=== PATIENT | male | born 1950 | race Caucasian/White ===

== ENCOUNTER → 2016-12-31 | Outpatient (CLI) | payer MEDICARE, BC ==
[~2016-12-31] MED LIST: AMLO5TAB2 PO; DICL1GEL3 TOP; FOLI1TAB4 PO; GABA-283 PO; GLIM1TAB PO; HYDR12.55 PO; INVO300T PO; KETO10TAB PO; MAGN1TAB25 PO; METF-414 PO; METF500T13 PO; THIA50CA PO; TRAM50TA2 PO; TRAZ-136 PO; VALS1TAB49 PO; VOLT1GEL15 TOP
--- NOTE | 2016-12-31 12:45 | REP ---
Clinical: Cervical. Technique: AP, lateral, open mouth views of the cervical spine. Findings: Alignment and lordosis maintained. No obvious acute fracture / compression injury or subluxation. Moderate to advanced multilevel degenerative changes include endplate sclerosis, cortical irregularity, and disc space narrowing. Prevertebral soft tissues normal. Spinous processes are intact. Open mouth view demonstrates normal C1-C2 articulation and odontoid process. Impression: Moderate to advanced multilevel degenerative changes. Signed by Richard Judd MD 12/31/2016 12:36 P
== END ==
LOC: M ADAMS 12:21
PROVIDERS: ATTEND Physician Assistant
DX: M54.2 Cervicalgia (principal)

== ENCOUNTER → 2017-01-07 | Outpatient (CLI) | payer MEDICARE, BC ==
--- NOTE | 2017-01-07 17:01 | REP ---
Clinical: Back pain. Technique: AP, lateral, and swimmer's views. Findings: Age-related osteopenia and mild multilevel degenerative changes are appreciated. No acute fracture / compression injury or subluxation. Impression: Age-related degenerative changes. Signed by Richard Judd MD 01/07/2017 04:52 P
--- NOTE | 2017-01-07 17:06 | REP ---
Clinical: Right-sided pain. Technique: Frontal view of the chest with multiple views of the right hemithorax. Findings: Frontal view of the chest demonstrates chronic COPD and emphysematous changes with scattered scarring. Multiple views of the right hemithorax demonstrates nondisplaced right lateral 9th through 11th rib fractures. Impression: Nondisplaced right 9-11th rib fractures. Signed by Richard Judd MD 01/07/2017 04:58 P
[2017-01-07 20:53] LABS: BASO # 0.1 K/mm3 (0.0-0.2); BASO % 0.7 % (0.0-1.0); EOS # 0.3 K/mm3 (0.0-0.50); LARGE UNSTAINED CELL # 0.2 K/mm3 (0.0-0.4); LARGE UNSTAINED CELL % 1.3 % (0.0-4.0); LYMPH # 2.9 K/mm3 (1.5-4.5); LYMPH % 17.4 % (24.0-44.0); MEAN CORPUSCULAR HEMOGLOBIN 35.5 pg (27.0-33.0); MEAN CORPUSCULAR HGB CONC 34.4 g/dl (32.0-36.5); MEAN CORPUSCULAR VOLUME 103.2 fl (80.0-96.0); MONO # 0.7 K/mm3 (0.0-0.8); MONO % 4.3 % (0.0-5.0); NEUTROPHILS # 12.2 K/mm3 (1.8-7.7); NEUTROPHILS % 74.3 % (36.0-66.0); PLATELET COUNT, AUTOMATED 404 k/mm3 (150-450); RED CELL DISTRIBUTION WIDTH 12.4 % (11.5-14.5); WHITE BLOOD COUNT 16.4 K/mm3 (4.0-10.0)
[2017-01-07 20:55] LABS: MICROSCOPIC INDICATED? MAN NO (NO)
[2017-01-07 21:31] LABS: ALBUMIN 3.9 GM/DL (3.2-5.2); ALBUMIN/GLOBULIN RATIO 1.18 (1.00-1.93); BILIRUBIN,TOTAL 0.7 MG/DL (0.2-1.0); CALCIUM LEVEL 13.5 MG/DL (8.8-10.2); CREATININE FOR GFR 5.59 MG/DL (0.70-1.30); POTASSIUM SERUM 4.6 MEQ/L (3.5-5.1); TOTAL PROTEIN 7.2 GM/DL (6.4-8.2)
[2017-01-07 21:35] LABS: ERYTHROCYTE SEDIMENTATION RATE 35 mm/hr (0-20)
[2017-01-11 00:15] LABS: (LD) FRACTION 1 16 % (17-32); (LD) FRACTION 2 25 % (25-40); (LD) FRACTION 3 16 % (17-27); (LD) FRACTION 4 10 % (5-13); (LD) FRACTION 5 33 % (4-20); LDH 167 IU/L (121-224)
== END ==
LOC: M ADAMS 15:41
PROVIDERS: ATTEND Physician Assistant
DX: M54.6 Pain in thoracic spine (principal)

== ENCOUNTER 2017-01-09 12:53 | Inpatient (IN) | payer MEDICARE, BC ==
[~2017-01-09] VITALS: Ht 180.3 cm; Wt 85.1 kg
[2017-01-09] MEDS ORDERED: TRAZ-136 PO (13:32)
[2017-01-09] MEDS ORDERED: MAGN1TAB25 PO (13:32)
[2017-01-09] MEDS ORDERED: INVO300T PO (13:32)
[2017-01-09] MEDS ORDERED: METF500T13 PO (13:32)
[2017-01-09] MEDS ORDERED: GABA-283 PO (13:32)
[2017-01-09] MEDS ORDERED: HYDR12.55 PO (13:32)
[2017-01-09] MEDS ORDERED: NS IV ONE (14:00)
[2017-01-09] MEDS ORDERED: DILUENT IV ONE (14:00)
[2017-01-09 14:18] LABS: VENOUS BASE EXCESS 3.5 (-2.0-2.0); VENOUS O2 SATURATION 76.7 % (60.0-80.0); VENOUS PARTIAL PRESSURE CO2 48.4 mmHg (38.0-50.0); VENOUS PARTIAL PRESSURE O2 38.3 mmHg (30.0-50.0); VENOUS TOTAL CO2 30.7 MEQ/L (24.0-28.0)
[2017-01-09 14:30] LABS: INR 0.92
[2017-01-09 14:39] LABS: BASO # 0.1 K/mm3 (0.0-0.2); BASO % 0.8 % (0.0-1.0); EOS # 0.5 K/mm3 (0.0-0.50); EOS % 3.3 % (0.0-3.0); LARGE UNSTAINED CELL # 0.2 K/mm3 (0.0-0.4); LARGE UNSTAINED CELL % 1.5 % (0.0-4.0); LYMPH # 3.1 K/mm3 (1.5-4.5); MEAN CORPUSCULAR HGB CONC 33.7 g/dl (32.0-36.5); MEAN CORPUSCULAR VOLUME 103.9 fl (80.0-96.0); MONO # 0.8 K/mm3 (0.0-0.8); MONO % 5.8 % (0.0-5.0); NEUTROPHILS # 9.5 K/mm3 (1.8-7.7); NEUTROPHILS % 66.7 % (36.0-66.0); PLATELET COUNT, AUTOMATED 342 k/mm3 (150-450); RED CELL DISTRIBUTION WIDTH 12.2 % (11.5-14.5); WHITE BLOOD COUNT 14.3 K/mm3 (4.0-10.0)
[2017-01-09 14:46] LABS: ALBUMIN 3.5 GM/DL (3.2-5.2); ALKALINE PHOSPHATASE 71 U/L (45-117); ALT/SGPT 53 U/L (12-78); AMYLASE 86 U/L (25-115); ANION GAP 10 MEQ/L (8-16); AST/SGOT 23 U/L (15-37); BILIRUBIN,DIRECT 0.2 MG/DL (0.0-0.2); BILIRUBIN,TOTAL 0.5 MG/DL (0.2-1.0); BLOOD UREA NITROGEN 80 MG/DL (7-18); CALCIUM LEVEL 12.9 MG/DL (8.8-10.2); CARBON DIOXIDE LEVEL 27 MEQ/L (21-32); CHLORIDE LEVEL 95 MEQ/L (98-107); CREATININE FOR GFR 6.31 MG/DL (0.70-1.30); GLOMERULAR FILTRATION RATE 9.5 (>49); GLUCOSE, FASTING 134 MG/DL (80-110); SODIUM LEVEL 132 MEQ/L (136-145)
--- NOTE | 2017-01-09 14:57 | REP ---
CT CERVICAL SPINE WITHOUT CONTRAST: HISTORY: Trauma. There is no acute fracture or subluxation. Disc bulges are present at the C4-5 through C6-7 levels. There is minimal narrowing of the spinal canal. The neural foramina are patent. The intervertebral discs are normal in height. IMPRESSION: 1. There is no acute fracture or subluxation. 2. There is cervical spondylosis at the C4-5 through C6-7 levels. Signed by Qasim Pham MD 01/09/2017 03:01 P
--- NOTE | 2017-01-09 15:00 | REP ---
Clinical: Trauma with thoracic pain. Technique: AP, lateral, and swimmers views. Findings: Alignment and kyphosis is maintained. Vertebral bodies intact. No acute fracture / compression injury or subluxation. No degenerative changes. Paravertebral soft tissues are normal. Impression: Normal thoracic spine series. Signed by Richard Judd MD 01/09/2017 02:51 P
--- NOTE | 2017-01-09 15:02 | REP ---
Clinical: Trauma . Comparison: 06/23/2013 . Technique: PA and lateral. Findings: The mediastinum and cardiac silhouette are normal. The lung bangura are clear and without acute consolidation, effusion, or pneumothorax. Acute right ninth and tenth rib fractures are identified. Old healed left rib fracture noted. Impression: Nondisplaced right lateral ninth and tenth rib fractures. Signed by Richard Judd MD 01/09/2017 02:53 P
--- NOTE | 2017-01-09 15:03 | REP ---
Clinical: Trauma. Comparison: 03/03/2012 . Technique: AP, lateral, bilateral oblique, and coned-down views. Findings: Alignment and lordosis is maintained. The vertebral bodies including transverse process and spinous processes are intact and normal. There is no evidence for acute fracture / compression injury or subluxation. No evidence for spondylolysis or spondylolisthesis. Mild age-related degenerative changes. Impression: Mild age-related changes. No acute fracture / compression injury or subluxation. Signed by Richard Judd MD 01/09/2017 02:54 P
[2017-01-09] MEDS ORDERED: DICL1GEL3 TOP (15:20)
[2017-01-09] MEDS ORDERED: VOLT1GEL15 TOP (15:20)
[2017-01-09] MEDS ORDERED: TRAM50TA2 PO (15:28)
[2017-01-09] MEDS ORDERED: VALS1TAB49 PO (15:28)
[2017-01-09] MEDS ORDERED: KETO10TAB PO ×2 (15:28→15:35)
--- NOTE | 2017-01-09 15:41 | REP ---
Clinical: Abdominal pain with acute renal failure. Findings: Lung bases demonstrate mild posterobasilar dependent changes. No cardiomegaly. Liver, spleen, pancreas, gallbladder, and bilateral adrenal glands are normal. The kidneys demonstrate mild chronic-appearing perinephric stranding and 2 mm nonobstructing left nephrolith without hydroureteronephrosis or obstructing calculus. The enteric system is without obstruction or acute inflammatory process. Normal terminal ileum and appendix identified in the right lower quadrant. Pelvis demonstrates normal bladder and age appropriate prostate/seminal vesicles. Few scattered sigmoid diverticula without acute diverticulitis. No free air. No free fluid. No adenopathy. Abdominal aorta without aneurysm. Surrounding musculoskeletal structures without focal osseous abnormality. Impression: 2 mm nonobstructing left renal calculus. No acute abdominopelvic pathology appreciated. Signed by Richard Judd MD 01/09/2017 03:34 P
--- NOTE | 2017-01-09 15:47 | REP ---
Clinical: Trauma. Findings: The bilateral lung bangura are relatively well aerated. Minimal bibasilar dependent changes (right greater than left) noted. No consolidation, pleural effusion, or pneumothorax. Tracheobronchial tree is patent. Mediastinum demonstrates atherosclerotic changes to the thoracic aorta and coronary arteries without aortic aneurysm or cardiomegaly. No pericardial effusion. Mediastinal lymph nodes are nonspecific. Old healed left eighth and ninth rib fractures. Nondisplaced acute posterior right 9th, 10th, 11th, and 12th rib fractures identified. Impression: Nondisplaced posterior right 9-12th rib fractures noted. No mediastinal or pleuroparenchymal process. Signed by Richard Judd MD 01/09/2017 03:39 P
[2017-01-09] MEDS ORDERED: METF-414 PO (15:53)
[2017-01-09] MEDS ORDERED: cefTRIAXone SOD 2 GM in D5W MINI-BAG PLUS 50 ML IV ONE (16:30)
[2017-01-09 17:09] LABS: MAGNESIUM LEVEL 4.9 MG/DL (1.8-2.4)
[2017-01-09 17:22] LABS: PHOSPHORUS LEVEL 4.7 MG/DL (2.5-4.9)
[2017-01-09] MEDS ORDERED: MORPHINE 2 MG/ML 1ML SYRINGE IV PRN (20:30)
[2017-01-09] MEDS: NS 1,000 ML IV SCH (20:35)
[2017-01-09] MEDS ORDERED: LORazepam 2 MG TAB PO PRN (20:45)
[2017-01-09] MEDS ORDERED: GLUCOSE 4 GM CHEW TABLET PO PRN (20:45)
[2017-01-09] MEDS ORDERED: GLUCAGON FOR INJ 1 MG VIAL (J1610) SC PRN (20:45)
[2017-01-09] MEDS ORDERED: DEXTROSE 50% 50 ML SYRINGE IV PRN (20:45)
[2017-01-09] MEDS: HumaLOG INSULIN (NovoLOG) PER UNIT SC SCH (21:00)
[2017-01-09] MEDS: THIAMINE 100 MG TAB PO SCH (21:45)
--- NOTE | 2017-01-09 21:54 | HPE ---
DATE OF ADMISSION: 01/09/2017 CHIEF COMPLAINT: 66-year-old gentleman sent from Dr. Multani' office due to acute renal failure. HISTORY OF PRESENT ILLNESS: This is a 66-year-old gentleman with significant past medical history of recent neck pain 2 weeks ago after a fall, was evaluated at an urgent care center, was prescribed oxycodone, muscle relaxant and tramadol 10 mg every 6 hours, with history of alcohol use, was seen by Dr. Multani today, noted to have acute kidney failure. Patient denies any symptoms such as fever, chills, cough, sputum production, abdominal pain, diarrhea, or dysuria, although he does mention having frequent little urination, but that has not been anything new and he has also had chronic issues with this in the past. Patient denies of any BPH history. Patient did have some difficulty with urination, but denies of dysuria or hematuria. Patient denies of any precipitating factors such as chest pain, shortness of breath, dizziness, abdominal pain that might have contributed to the acute kidney failure. Denies of any diarrhea history. Denies of any severe dehydration, although he does drink alcohol, he states that he drinks about half a liter of hard liquor, but last drink was 2 weeks ago. Denies of any withdrawal symptoms. Patient denies of any flank pain. He does take medicine for diabetes which includes metformin and Invokana. Again, patient has been utilizing oxycodone, ketorolac, and muscle relaxant for his recent pain of his neck. Patient was evaluated in the emergency room and noted to have acute kidney failure with creatinine of 6.31 with a lactic acid of 3.1, but that did improve to 1.7. Patient is being admitted for further evaluation and treatment. REVIEW OF SYSTEMS: Ten point review of systems is negative other than those described in the history of present illness (HPI). PAST MEDICAL HISTORY: Significant for diabetes, recent neck pain that has been evaluated, incidental finding of rib fractures, neuropathy, hypertension. No surgical history. ALLERGIES: Patient has no known drug allergies. MEDICATIONS: From home are as follows: - Invokana 300 mg by mouth daily - diclofenac one dose topical four times a day to the back - gabapentin 400 mg three times a day - ketorolac 10 mg by mouth every 6 hours as needed - magnesium oxide 400 mg by mouth three times a day - metformin 500 mg by mouth twice a day - tramadol 50 mg by mouth twice a day as needed - trazodone 100 mg by mouth nightly - valsartan 40 mg by mouth every morning In terms of social history, patient denies of smoking or drug abuse, but he does utilize hard liquor, half a liter, but denies of any withdrawal symptoms, last drink was 2 weeks ago, verified by his mother who is at the bedside. FAMILY MEDICAL HISTORY: Noncontributory at this time. PHYSICAL EXAMINATION: VITAL SIGNS: Again, no temperature noted, but last heart rate is 54, blood pressure is 112/58, saturating 93% on room air. On my examination, his respiratory rate was 16. HEENT: Normocephalic. No trauma noted. Inspection of the eyes, nose, and throat is within normal. Pupils equal, round, and reactive to light and accommodation. Mucous is moist. Neck is supple. No tracheal deviation. CARDIAC: S1, S2, regular rate and rhythm. Pulses present. LUNGS: Equal air entry. Did not hear any wheezes, rales, or rhonchi. ABDOMEN: Soft, nontender. Bowel sounds present. LOWER EXTREMITIES: No significant pitting edema but he does have some bruising that seems to be healing on his left lower extremity, but again good capillary refill bilaterally. The patient is currently awake, alert, oriented, flat affect, does not seem to be in any distress and not agitated. Cranial nerves grossly intact. Motor and sensory is intact. His mother is at the bedside. DIAGNOSTIC STUDIES: Patient had EKG showing heart rate of 60, sinus, first degree atrioventricular (AV) block with premature ventricular contractions (PVCs). WBC was 14.3, hemoglobin and hematocrit is 13.1 and 38.8, platelet count within normal. Sodium was 132, potassium within normal, chloride 95, carbon dioxide within normal. BUN and creatinine of 80 and 6.31, respectively. Glucose is 134. Lactic acid was 3.1, but repeat is 1.7. Calcium is 12.9, phosphorous is within normal, magnesium is high at 4.9. Total bilirubin, direct bilirubin, AST, ALT, alkaline phosphatase is all within normal. Cardiac enzymes within normal except for a total CK of 35, C-reactive protein is 3.02, amylase is within normal, otherwise total protein and albumin is within normal as well. Coagulation studies: PT and INR is within normal, PTT is 24.1. Blood gas showed: VBG of 7.398 pH, pCO2 of 48.4, oxygen of 38.3, bicarbonate 29.2, saturating 76.7. Urinalysis is negative for a urinary tract infection but it did show a 1+ protein, 3+ glucose, ketones trace amount, bacteria 1+. Urine study: Urine random osmolality is 367, creatinine of 159, and sodium of 27. Toxicology: Alcohol level is 0.005. Blood culture is pending. Urine culture is pending. Influenza A and B is negative. Patient also had a radiology study showing cervical spine without contrast, the CT shows, as per radiology, there is no acute fracture or subluxation. There is cervical spondylosis at C4-5 through C6-7 level. Patient also had thoracic spine x-ray which showed normal thoracic spine series. Lumbar spine showed mild age-related changes. No acute fracture, compression, injury, or subluxation. Chest x-ray showed nondisplaced right lateral 9th and 10th rib fracture. Abdomen CT showed 2 mm nonobstructing left renal calculus. No acute abdominal pelvic pathology appreciated. Patient also had a CT of the chest. As per radiology, showed nondisplaced posterior right 9th through 12th rib fracture. No mediastinal or pleural parenchymal process. ASSESSMENT AND PLAN: This is a 66-year-old gentleman with significant past medical history of diabetes, hypertension, neuropathy, who drinks roughly half a liter of hard liquor, last drink was 2 weeks ago, who recently had neck pain and was prescribed ketorolac who was evaluated by Dr. Multani today, noted to have acute renal failure. 1. Acute renal failure, most likely secondary due to a renal toxic medication. At this time we will provide aggressive IV fluid, hold renal toxic medication and nonessential medication at this time. Renal ultrasound for further evaluation and consult Dr. Schaefer in the morning. Will defer calling Dr. Schaefer to the morning team. 2. Lactic acidosis. Most likely secondary due to acute renal failure and metformin use. At this time, will hold metformin and Invokana. Utilize IV fluid. Repeat lactate has improved. In addition, treat for his history of alcohol consumption with IV fluids, thiamine, multivitamin, and folic acid. Monitor his fingersticks. Provide sliding scale coverage and utilize long- acting insulin, Lantus, judiciously due to his renal failure. So far his blood culture is pending. Chest x-ray did not show any acute infectious process. Influenza A and B is negative and urinalysis is negative for any signs for infection. 3. Right-sided 9th through 12th rib fracture. Will utilize pain medication judiciously. Avoid renal toxic medication. 4. Hypermagnesemia and hypercalcemia. Hold magnesium supplement and aggressive IVF. 5. Diabetes. Again, hold metformin and Invokana. Utilize fingerstick monitoring. 6. 2 mm nonobstructing left renal calculus. Aggressive IV hydration and patient to be followed up with primary care provider (PCP) and observe for any signs of obstruction. 7. Deep venous thrombosis (DVT) prophylaxis. MTDD
--- NOTE | 2017-01-09 22:40 | REPUSA ---
CLINICAL HISTORY: ARF. TECHNIQUE: Realtime sonographic images were obtained in multiple projections. COMMENTS: The right kidney measures 10.9 x 5.1 x 5.4 cm and the left kidney measures 11.0 x 5.1 x 6.6 cm. Echo genicities of both the kidneys are within normal limits. Both kidneys are free of hydronephrosis. Bilaterally increased renal sinus echogenici foci most compatible with calcified vessels. 3 mm nonobs tructing stone. Bladder is within normal limits. IMPRESSION: 1. Bilaterally increased renal sinus echogenici foci most compatible with calcified vessels. 2. 3 mm nonobstructing stone in the lower pole of left kidney. Bladder is within normal limits. Thank you for your kind referral of this patient. We appreciate the opportunity to participate in thi s patient's care.
[2017-01-09 22:50] VITALS: BP 110/62
[2017-01-10] MEDS: HEPARIN SOD (PORCINE) 5000 UNITS/ML VIAL SC SCH ×3 (05:52→22:04)
[2017-01-10] MEDS: NS 1,000 ML IV SCH ×3 (05:52→18:33)
[2017-01-10 06:00] VITALS: BP 115/59
[2017-01-10 07:09] LABS: MEAN CORPUSCULAR HEMOGLOBIN 35.3 pg (27.0-33.0); MEAN CORPUSCULAR HGB CONC 34.5 g/dl (32.0-36.5); MEAN CORPUSCULAR VOLUME 102.2 fl (80.0-96.0); RED CELL DISTRIBUTION WIDTH 12.7 % (11.5-14.5); WHITE BLOOD COUNT 10.8 K/mm3 (4.0-10.0)
[2017-01-10] MEDS: HumaLOG INSULIN (NovoLOG) PER UNIT SC SCH ×4 (07:30→21:00)
--- NOTE | 2017-01-10 07:34 | ECGEPIP ---
Stationary ECG Study [facility] - ED Test Date: 2017-01-09 Pat Name: CATALINA YEUNG Department: Room: - Gender: M [employer] Order Clerk: ALVAREZ : 1950 Requested By: Cassandra Quevedo Order Number: [id number] Reading MD: Cassandra Quevedo Measurements Intervals [place] Rate: 60 P: 22 AK: 216 QRS: -33 QRSD: 106 T: 13 QT: 383 QTc: 383 Interpretive Statements SINUS RHYTHM WITH FIRST DEGREE AV BLOCK WITH OCCASIONAL ECTOPIC PREMATURE COMPLEXES INFERIOR MYOCARDIAL INFARCTION, PROBABLY OLD NO PRIOR FOR COMPARISON Electronically Signed On 01-10-2017 7:33:52 EDT by Cassandra Quevedo
[2017-01-10 08:00] VITALS: BP 115/59
[2017-01-10 09:16] LABS: TOTAL PROTEIN 6.4 GM/DL (6.4-8.2)
[2017-01-10] MEDS: THIAMINE 100 MG TAB PO SCH ×2 (09:43→22:04)
[2017-01-10] MEDS: MULTIVITAMINS/MINERALS THERAP 1 TAB PO SCH (09:43)
[2017-01-10] MEDS: FOLIC ACID 1 MG TAB PO SCH (09:43)
[2017-01-10 09:44] LABS: CALCIUM LEVEL 10.9 MG/DL (8.8-10.2); CREATININE FOR GFR 4.4 MG/DL (0.70-1.30); GLOMERULAR FILTRATION RATE 14.4 (>49); POTASSIUM SERUM 4.3 MEQ/L (3.5-5.1)
[2017-01-10 10:42] LABS: COMPLEMENT C4 31.4 MG/DL (10-40)
--- NOTE | 2017-01-10 13:04 | CR ---
DATE OF CONSULTATION: 01/10/2017 REQUESTING PROVIDER: Le Saucedo MD REASON FOR CONSULTATION: Acute renal failure and hypercalcemia. HISTORY OF PRESENT ILLNESS Mr. Lee is a 66-year-old gentleman with known history of chronic alcoholic problems, diabetes, peripheral neuropathy and hypertension. He fell a couple of weeks ago and since then has pain in his neck and right side of hips. He was noticed to have rib fractures on the right side. He was treated by his primary care physician as an outpatient for neck pain with Toradol and had his labs repeated. As an outpatient, his lab work showed acute renal failure due to which the patient was sent to the emergency room yesterday. His creatinine level was 6.3 and lactic acid 3.1. His calcium level was also elevated at 12.5. The patient is being hydrated with IV fluid. His mother is present in the room who tells me that his oral intake has been poor for weeks. The patient denies any nausea, vomiting or diarrhea. Nephrology consultation was requested for acute renal failure and hypercalcemia. PAST MEDICAL AND SURGICAL HISTORY Significant for: 1. History of chronic heavy alcohol use. 2. Diabetes. 3. Hypertension. 4. Diabetic neuropathy. 5. History of fall with rib fractures. MEDICATIONS: His outpatient medications include: - Invokana 300 mg daily - gabapentin 400 mg three times a day - Ketorolac 10 mg every 6 hours as needed for pain - diclofenac ointment topically four times a day to the back - magnesium oxide 400 mg three times a day - metformin 500 mg twice a day - tramadol 50 mg twice a day - trazodone 100 mg at bedtime - valsartan 40 mg daily ALLERGIES: The patient has NO KNOWN DRUG ALLERGIES. PERSONAL AND SOCIAL HISTORY: The patient has no history of recreational drug or tobacco use. He does have history of heavy alcohol use. FAMILY HISTORY: Negative for any genetic kidney problems. REVIEW OF SYSTEMS: Generally, the patient has been very weak for at least the last week. He fell and sustained right-sided rib fractures and neck pain couple of weeks ago. He has no fever or chills. Ears, nose and throat are unremarkable. Cardiovascular system negative for dyspnea or chest pain. Respiratory system is significant for pleuritic type of chest pain. He denies any hemoptysis. Gastrointestinal system is negative for nausea, vomiting or diarrhea. Genitourinary system is significant increased frequency of urination with only small volumes. He denies any dysuria. He was noticed to have a small kidney stone. Endocrine system is significant for type 2 diabetes. There is no history of thyroid problems. Hematological system is negative for anticoagulation, excessive bleeding or easy bruising. Neurological system is significant for peripheral neuropathy. He denies any seizures or stroke. Psychosocial system is significant for alcohol addiction and possible depression. Skin is negative for rash or ulcers. Musculoskeletal system is significant for severe pain in the neck for about a week and right-sided rib fractures due to fall. PHYSICAL EXAMINATION: The patient is awake and alert at the time of my visit. VITAL SIGNS: Temperature is 97.7 degrees Fahrenheit, heart rate 60 per minute and respiratory rate 16 per minute. Blood pressure 115/60 mmHg and oxygen saturation 99% on room air. Head is atraumatic. Neck is supple and without jugular venous distention (JVD) or thyroid enlargement. Oral mucosa is moist and healthy. Ears, nose and throat are unremarkable. Heart sounds are regular and lungs clear to auscultation. He has poor inspiratory effort due to fractured ribs. Abdomen is soft and nontender. Bowel sounds are normal. There is no palpable organomegaly. Extremities have no cyanosis or clubbing. Skin has no rash or ulcers. Neurologically, he is awake, alert and seems to be oriented at present fairly well. LABORATORY DATA WBC count is 10.8, hemoglobin 12.3 and hematocrit 35.7. ESR is 34 and platelets 291. Today's sodium 138 and potassium 4.3. CO2 is 20, BUN 70 and creatinine 4.4. Yesterday, his BUN was 80 and 56.31. Calcium level was 12.9 yesterday, which has now come down to 10.9. C-reactive protein is 3.8. Serum electrophoresis is pending. PROBLEMS: 1. Acute renal failure most likely due to dehydration caused by poor oral intake and hypercalcemia. It remains to be seen that what was the cause of his hypercalcemia. He does have rib fractures and neck pain. However, there is also a history of fall associated with it. We will get a spot urine protein and wait for serum and urine protein electrophoresis results. Multiple myeloma certainly needs to be ruled out. At present, I would recommend to continue with IV fluid hydration and monitoring of his renal function. His renal ultrasound did show normal looking kidneys without any evidence of hydronephrosis. 2. Hypercalcemia, probably related to dehydration and chronic alcoholic issues. Multiple myeloma workup has already been ordered and results are pending. His serum protein and albumin seems to be within normal range. I do not have a very strong suspicion for multiple myeloma. However, certainly we will need to rule that out. 3. Frequency of urination. Most likely related to benign prostatic hypertrophy (BPH). We will consider to treat him with Flomax and also consider to get a postvoid bladder residual volume with a bladder scan. 4. Lactic acidosis. His initial lactic acid level was 3.1, which has improved to 1.7. This is probably related to metformin, which has already been stopped. Thank you for involving me in the care of Mr. Lee. I will follow him along with you. BLAKE
[2017-01-10 14:00] VITALS: BP 109/59
--- NOTE | 2017-01-10 14:04 | IPNPDOC ---
Subjective Date Seen The patient was seen on 01/10/17. Subjective Chief Complaint/HPI The patient is a 66-year-old male admitted with a reason for visit of Acute Renal Failure. Events since last encounter complains of feeling sick and tired, also has neck pain and back pain. has poor appetite and had only one urinary movement after admission. Says normally has small amounts of urine about 3 times at night about 3 times during the day. Objective Physical Examination General Exam: Positive: Alert, Cooperative, No Acute Distress Eye Exam: Positive: PERRLA, Conjunctiva & lids normal, EOMI, Negative: Sclera icteric ENT Exam: Positive: Atraumatic, Mucous membr. moist/pink, Pharynx Normal Neck Exam: Positive: Supple, Negative: JVD, thyromegaly Chest Exam: Positive: Clear to auscultation, Normal air movement Heart Exam: Positive: Rate Normal, Regular Rhythm, Normal S1, Normal S2, Negative: Murmurs, Rubs Abdomen Exam: Positive: Normal bowel sounds, Soft, Negative: Tenderness, Hepatospenomegaly Extremity Exam: Positive: Normal pulses, Negative: Clubbing, Cyanosis, Edema Skin Exam: Positive: Nl turgor and temperature, Negative: Rash, Breakdown Assessment /Plan Problems (1) Acute renal failure Status: Acute Problem Text: most probably due to hypercalcemia and dehydration. work up for hypercalcemia ordered. No obstruction in renal US or CT abdomen. will continue with IVF appreciate Dr Schaefer's care of the pateint. (2) Hypercalcemia Status: Acute (3) Ribs, multiple fractures Status: Acute Problem Text: on the right post 9 to 11th ribs nondisplaced had a fall down the stairs recently. (4) Lactic acid acidosis Status: Resolved Problem Text: may be due to metformin with Rajat. (5) Diabetes Status: Chronic Problem Text: continue insulin. (6) Hypertension Status: Chronic Plan/VTE VTE Prophylaxis Ordered?: Yes VS, I&O, 24H, Fishbone Vital Signs/I&O Vital Signs Date Time Temp Pulse Resp B/P (MAP) Pulse Ox O2 Delivery O2 Flow Rate FiO2 01/10/17 06:00 97.7 59 14 115/59 (77) 99 Room Air I&O- Last 24 Hours up to 6 AM 01/10/17 06:00 Intake Total 2135 ml Output Total 60 ml Balance 2075 ml Laboratory Data 24H LABS Laboratory Tests 2 01/09/17 14:08: White Blood Count 14.3H, Red Blood Count 3.73L, Hemoglobin 13.1L, Hematocrit 38.8L, Mean Corpuscular Volume 103.9H, Mean Corpuscular Hemoglobin 35.0H, Mean Corpuscular Hemoglobin Concent 33.7, Red Cell Distribution Width 12.2, Platelet Count 342, Neutrophils (%) (Auto) 66.7H, Lymphocytes (%) (Auto) 22.0L, Monocytes (%) (Auto) 5.8H, Eosinophils (%) (Auto) 3.3H, Basophils (%) (Auto) 0.8 , Neutrophils # (Auto) 9.5H, Lymphocytes # (Auto) 3.1, Monocytes # (Auto) 0.8, Eosinophils # (Auto) 0.5, Basophils # (Auto) 0.1, Large Unclassified Cells % 1.5 , Large Unclassified Cells # 0.2, Prothrombin Time 12.4, Prothromb Time International Ratio 0.92, Activated Partial Thromboplast Time 24.1L, Blood Gas Bicarbonate Standard 27.0, Venous Blood pH 7.398, Venous Blood Partial Pressure CO2 48.4, Venous Blood Partial Pressure O2 38.3, Venous Blood Total Carbon Dioxide 30.7H, Venous Blood HCO3 29.2H, Venous Blood Oxygen Saturation 76.7, Venous Blood Base Excess 3.5H, Anion Gap 10, Glomerular Filtration Rate 9.5L, Lactic Acid Level 3.1*H, Calcium Level 12.9H, Phosphorus Level 4.7, Magnesium Level 4.9*H, Aspartate Amino Transf (AST/SGOT) 23, Alanine Aminotransferase (ALT /SGPT) 53, Alkaline Phosphatase 71, Total Bilirubin 0.5, Direct Bilirubin 0.2, Total Creatine Kinase 35L, Creatine Kinase MB 1.0, Creatine Kinase MB Relative Index 2.85, Troponin I < 0.02, C-Reactive Protein, Quantitative 3.02H, Total Protein 7.0, Albumin 3.5, Albumin/Globulin Ratio 1.00, Amylase Level 86 01/09/17 16:52: Urine Appearance CLEAR, Urine Color YELLOW, Urine pH 6.0, Urine Specific [place] 1.012, Urine Protein 1+H, Urine Glucose (UA) 3+H, Urine Ketones TRACEH, Urine Urobilinogen 0.2, Urine Bilirubin NEGATIVE, Urine Leukocyte Esterase NEGATIVE, Urine Blood NEGATIVE, Urine Nitrite NEGATIVE, Urine WBC (Auto) 3, Urine RBC (Auto) 2, Urine Hyaline Casts (Auto) 2, Urine Bacteria (Auto) 1+H, Urine Squamous Epithelial Cells 0, Urine Mucus (Auto) SMALL, Urine Sperm (Auto) , Urine Random Osmolality 367L, Urine Random Creatinine 159.0, Urine Random Sodium 27 01/09/17 18:26: Lactic Acid Followup at 4 Hours 1.7, Ethyl Alcohol Level 0.005 01/09/17 21:44: Bedside Glucose (Misc Panel) 152H 01/10/17 06:41: Anti-Streptolysin O Antibody 95.5 01/10/17 06:46: Erythrocyte Sedimentation Rate 34H, Anion Gap 10, Glomerular Filtration Rate 14.4L, Blood Urea Nitrogen 70H, Creatinine 4.40H, Sodium Level 138, Potassium Level 4.3, Chloride Level 106, Carbon Dioxide Level 22, Calcium Level 10.9#H, C- Reactive Protein, Quantitative 3.80H, Complement C3 113, Complement C4 31.4 01/10/17 07:03: Total Protein (PEP) 6.4 01/10/17 07:13: 01/10/17 08:29: Urine Random Total Protein 25.1H 01/10/17 11:57: Bedside Glucose (Misc Panel) 146H CBC/BMP Laboratory Tests 01/09/17 14:08 Red Blood Count 3.73 L, Mean Corpuscular Volume 103.9 H, Mean Corpuscular Hemoglobin 35.0 H, Mean Corpuscular Hemoglobin Concent 33.7, Red Cell Distribution Width 12.2, Neutrophils (%) (Auto) 66.7 H, Lymphocytes (%) (Auto) 22.0 L, Monocytes (%) (Auto) 5.8 H, Eosinophils (%) (Auto) 3.3 H, Basophils (%) (Auto) 0.8, Neutrophils # (Auto) 9.5 H, Lymphocytes # (Auto) 3.1, Monocytes # ( Auto) 0.8, Eosinophils # (Auto) 0.5, Basophils # (Auto) 0.1 01/10/17 06:46 Red Blood Count 3.49 L, Mean Corpuscular Volume 102.2 H, Mean Corpuscular Hemoglobin 35.3 H, Mean Corpuscular Hemoglobin Concent 34.5, Red Cell Distribution Width 12.7, Calcium Level 10.9 #H Microbiology Microbiology 01/09/17 Blood Culture, Received Pending 01/09/17 Blood Culture, Received Pending 01/09/17 Influenza Virus Type A Antigen - Final, Complete 01/09/17 Influenza Virus Type B Antigen - Final, Complete 01/09/17 Urine Culture, Received Pending VADIM ALVAREZ MD Jan 10, 2017 14:04
[2017-01-10 20:00] VITALS: BP 109/59
[2017-01-10 22:00] VITALS: BP 113/72
[2017-01-11 06:00] VITALS: BP 152/73
[2017-01-11] MEDS: NS 1,000 ML IV SCH ×3 (06:46→22:15)
[2017-01-11] MEDS: HEPARIN SOD (PORCINE) 5000 UNITS/ML VIAL SC SCH ×3 (06:47→22:14)
[2017-01-11 07:13] LABS: MEAN CORPUSCULAR HEMOGLOBIN 34.9 pg (27.0-33.0); MEAN CORPUSCULAR HGB CONC 33.7 g/dl (32.0-36.5); MEAN CORPUSCULAR VOLUME 103.8 fl (80.0-96.0); RED CELL DISTRIBUTION WIDTH 12.6 % (11.5-14.5); WHITE BLOOD COUNT 9.3 K/mm3 (4.0-10.0)
[2017-01-11 07:49] LABS: CALCIUM LEVEL 9.9 MG/DL (8.8-10.2); CREATININE FOR GFR 2.79 MG/DL (0.70-1.30); GLOMERULAR FILTRATION RATE 24.4 (>49)
[2017-01-11] MEDS: THIAMINE 100 MG TAB PO SCH ×2 (08:52→22:14)
[2017-01-11] MEDS: MULTIVITAMINS/MINERALS THERAP 1 TAB PO SCH (08:52)
[2017-01-11] MEDS: FOLIC ACID 1 MG TAB PO SCH (08:52)
[2017-01-11] MEDS: HumaLOG INSULIN (NovoLOG) PER UNIT SC SCH ×4 (08:52→21:00)
--- NOTE | 2017-01-11 12:10 | IPNPDOC ---
Subjective Date Seen The patient was seen on 01/11/17. Subjective Chief Complaint/HPI The patient is a 66-year-old male admitted with a reason for visit of Acute Renal Failure. Events since last encounter feeling better , making more urine, good appetite, no nausea or vomiting, confusion and hallucination improving. no fever or chills, no chest pain or sob , no abdominal pain Objective Physical Examination General Exam: Positive: Alert, Cooperative, No Acute Distress Eye Exam: Positive: PERRLA, Conjunctiva & lids normal, EOMI, Negative: Sclera icteric ENT Exam: Positive: Atraumatic, Mucous membr. moist/pink, Pharynx Normal Neck Exam: Positive: Supple, Negative: JVD, thyromegaly Chest Exam: Positive: Clear to auscultation, Normal air movement Heart Exam: Positive: Rate Normal, Regular Rhythm, Normal S1, Normal S2, Negative: Murmurs, Rubs Abdomen Exam: Positive: Normal bowel sounds, Soft, Negative: Tenderness, Hepatospenomegaly Extremity Exam: Positive: Normal pulses, Negative: Clubbing, Cyanosis, Edema Skin Exam: Positive: Nl turgor and temperature, Negative: Rash, Breakdown Assessment /Plan Problems (1) Acute renal failure Status: Acute Problem Text: most probably due to hypercalcemia and dehydration. work up for hypercalcemia ordered. No obstruction in renal US or CT abdomen. will continue with IVF appreciate Dr Schaefer's care of the pateint. (2) Hypercalcemia Status: Acute Problem Text: work up ordered. (3) Ribs, multiple fractures Status: Acute Problem Text: on the right post 9 to 11th ribs nondisplaced had a fall down the stairs recently. (4) Lactic acid acidosis Status: Resolved Problem Text: may be due to metformin with Rajat. (5) Diabetes Status: Chronic Problem Text: continue insulin. (6) Hypertension Status: Chronic (7) Metabolic encephalopathy Status: Acute Response to Treatment: Improving Problem Text: poaaibly due to hypercalcemia and acute renal failure on the back ground of alcohol abuse. (8) Alcohol abuse Status: Chronic Problem Text: continue thiamine and folate. Plan/VTE VTE Prophylaxis Ordered?: Yes VS, I&O, 24H, Fishbone Vital Signs/I&O Vital Signs Date Time Temp Pulse Resp B/P (MAP) Pulse Ox O2 Delivery O2 Flow Rate FiO2 01/11/17 06:00 97.3 56 18 152/73 (99) 90 Room Air I&O- Last 24 Hours up to 6 AM 01/11/17 06:00 Intake Total 2290 ml Output Total 600 ml Balance 1690 ml Laboratory Data 24H LABS Laboratory Tests 2 01/10/17 17:18: Bedside Glucose (Misc Panel) 177H 01/10/17 21:30: Bedside Glucose (Misc Panel) 146H 01/11/17 06:43: 01/11/17 06:47: Anion Gap 7L, Glomerular Filtration Rate 24.4L, Blood Urea Nitrogen 48H, Creatinine 2.79H, Sodium Level 143, Potassium Level 4.0, Chloride Level 113H, Carbon Dioxide Level 23, Calcium Level 9.9 01/11/17 11:08: 01/11/17 11:30: Bedside Glucose (Misc Panel) 137H CBC/BMP Laboratory Tests 01/11/17 06:47 Red Blood Count 3.40 L, Mean Corpuscular Volume 103.8 H, Mean Corpuscular Hemoglobin 34.9 H, Mean Corpuscular Hemoglobin Concent 33.7, Red Cell Distribution Width 12.6, Calcium Level 9.9 Microbiology Microbiology 01/09/17 Blood Culture - Preliminary, Resulted No growth after 24 hours . All specim... 01/09/17 Blood Culture - Preliminary, Resulted No growth after 24 hours . All specim... 01/09/17 Influenza Virus Type A Antigen - Final, Complete 01/09/17 Influenza Virus Type B Antigen - Final, Complete 01/09/17 Urine Culture - Final, Complete VADIM ALVAREZ MD Jan 11, 2017 12:10
[2017-01-11] MEDS: ACETAMINOPHEN TAB 650MG DOSE (2X325MG) PO PRN ×2 (12:47→17:44)
[2017-01-11 14:00] VITALS: BP 118/74
--- NOTE | 2017-01-11 16:27 | IPN ---
DATE: 01/11/2017 Mr. Lee is seen this morning on his bedside. He is feeling better today and wants to go home. He denies any nausea, vomiting, dyspnea or chest pain. He continues to receive intravenous (IV) fluid. PHYSICAL EXAMINATION: Temperature 97.3 degrees Fahrenheit, heart rate 56 per minute and respiratory rate 18 per minute. Blood pressure 152/73 mmHg and oxygen saturation between 90 and 100% on room air. Intake and output records are incomplete. Total intake was 2470 and output has not been recorded. His head is atraumatic. Neck is supple and without jugular venous distension (JVD) or thyroid enlargement. Heart sounds are regular and lungs clear to auscultation. Abdomen soft and nontender and without a palpable organomegaly. Extremities have no cyanosis or clubbing. Skin has no rash or ulcers. Neurologically he is awake, alert and oriented times three. Today's labs show WBC count 9.3, hemoglobin 11.9 and hematocrit 35.2. Sodium 143 and potassium 4.0. BUN is 48 and creatinine 2.79. Calcium level is down to 9.9. Serum protein electrophoresis is still pending as rest of his immunology. PROBLEMS: 1. Acute renal failure most likely related to dehydration caused by hypercalcemia. I do not feel that the patient has acute myeloma kidney. His kidney function is improving with IV fluid hydration. I recommend to continue with the same for another 24 hours. Most of the serology is still pending. Spot urine protein is only slightly elevated at 25.1 mg/dl. He had only two red blood cells and 1+ protein on his initial urinalysis. I do not feel the patient has acute glomerulonephritis. 2. Hypercalcemia most likely related to chronic alcoholism and dehydration. His calcium level has improved just with IV fluid hydration. At present there is no indication for any other treatment. Workup for multiple myeloma is all pending. I recommend to continue current IV fluid hydration for another 24 hours. His renal function should be checked on daily basis.
[2017-01-11] MEDS ORDERED: NICOTINE POLACRILEX 2 MG GUM PO PRN (18:00)
[2017-01-11 22:00] VITALS: BP 141/68
[2017-01-12 00:08] LABS: COMPLEMENT TOTAL (CH50) > 65 U/mL (42-60)
[2017-01-12 06:00] VITALS: BP 135/66
[2017-01-12] MEDS: HEPARIN SOD (PORCINE) 5000 UNITS/ML VIAL SC SCH ×3 (06:02→21:27)
[2017-01-12 06:24] LABS: MEAN CORPUSCULAR HEMOGLOBIN 35.3 pg (27.0-33.0); MEAN CORPUSCULAR HGB CONC 34.1 g/dl (32.0-36.5); MEAN CORPUSCULAR VOLUME 103.5 fl (80.0-96.0); RED CELL DISTRIBUTION WIDTH 12.8 % (11.5-14.5); WHITE BLOOD COUNT 8.5 K/mm3 (4.0-10.0)
[2017-01-12 06:44] LABS: CALCIUM LEVEL 8.9 MG/DL (8.8-10.2); CREATININE FOR GFR 1.99 MG/DL (0.70-1.30); GLOMERULAR FILTRATION RATE 36.1 (>49); POTASSIUM SERUM 3.9 MEQ/L (3.5-5.1)
[2017-01-12] MEDS: THIAMINE 100 MG TAB PO SCH (08:35)
[2017-01-12] MEDS: HumaLOG INSULIN (NovoLOG) PER UNIT SC SCH ×4 (08:35→20:51)
[2017-01-12] MEDS: MULTIVITAMINS/MINERALS THERAP 1 TAB PO SCH (08:35)
[2017-01-12] MEDS: FOLIC ACID 1 MG TAB PO SCH (08:35)
--- NOTE | 2017-01-12 09:41 | IPNPDOC ---
Subjective Date Seen The patient was seen on 01/12/17. Subjective Chief Complaint/HPI The patient is a 66-year-old male admitted with a reason for visit of Acute Renal Failure. Events since last encounter feeling well today , denies any confusion or hallucination , good appetite, weakness and tiredness better . Objective Physical Examination General Exam: Positive: Alert, Cooperative, No Acute Distress Eye Exam: Positive: PERRLA, Conjunctiva & lids normal, EOMI, Negative: Sclera icteric ENT Exam: Positive: Atraumatic, Mucous membr. moist/pink, Pharynx Normal Neck Exam: Positive: Supple, Negative: JVD, thyromegaly Chest Exam: Positive: Clear to auscultation, Normal air movement Heart Exam: Positive: Rate Normal, Regular Rhythm, Normal S1, Normal S2, Negative: Murmurs, Rubs Abdomen Exam: Positive: Normal bowel sounds, Soft, Negative: Tenderness, Hepatospenomegaly Extremity Exam: Positive: Normal pulses, Negative: Clubbing, Cyanosis, Edema Skin Exam: Positive: Nl turgor and temperature, Negative: Rash, Breakdown Assessment /Plan Problems (1) Acute renal failure Status: Acute Problem Text: most probably due to hypercalcemia and dehydration. work up for hypercalcemia ordered. No obstruction in renal US or CT abdomen. will stop IVF and monitor calcium for 24 hours to make sure it is not rising. appreciate Dr Schaefer's care of the patient. (2) Hypercalcemia Status: Acute Problem Text: work up ordered. (3) Ribs, multiple fractures Status: Acute Problem Text: on the right post 9 to 11th ribs nondisplaced had a fall down the stairs recently. (4) Diabetes Status: Chronic Problem Text: continue insulin. (5) Hypertension Status: Chronic (6) Metabolic encephalopathy Status: Acute Response to Treatment: Improving Problem Text: poaaibly due to hypercalcemia and acute renal failure on the back ground of alcohol abuse. (7) Alcohol abuse Status: Chronic Problem Text: continue thiamine and folate. Plan/VTE VTE Prophylaxis Ordered?: Yes VS, I&O, 24H, Fishbone Vital Signs/I&O Vital Signs Date Time Temp Pulse Resp B/P (MAP) Pulse Ox O2 Delivery O2 Flow Rate FiO2 01/12/17 06:00 98.1 50 18 135/66 (89) 99 Room Air I&O- Last 24 Hours up to 6 AM 01/12/17 06:00 Intake Total 1812.5 ml Output Total 1600 ml Balance 212.5 ml Laboratory Data 24H LABS Laboratory Tests 2 01/11/17 11:08: 25-Hydroxy Vitamin D Total 9.7L, Parathyroid Hormone (Intact) 12.4L 01/11/17 11:30: Bedside Glucose (Misc Panel) 137H 01/11/17 17:10: Bedside Glucose (Misc Panel) 130H 01/11/17 20:23: Bedside Glucose (Misc Panel) 207H 01/12/17 06:08: Anion Gap 6L, Glomerular Filtration Rate 36.1L, Blood Urea Nitrogen 34H, Creatinine 1.99H, Sodium Level 145, Potassium Level 3.9, Chloride Level 117H, Carbon Dioxide Level 22, Calcium Level 8.9 CBC/BMP Laboratory Tests 01/12/17 06:08 Red Blood Count 3.11 L, Mean Corpuscular Volume 103.5 H, Mean Corpuscular Hemoglobin 35.3 H, Mean Corpuscular Hemoglobin Concent 34.1, Red Cell Distribution Width 12.8, Calcium Level 8.9 Microbiology Microbiology 01/09/17 Blood Culture - Preliminary, Resulted No Growth after 48 hours. All Specime... 01/09/17 Blood Culture - Preliminary, Resulted No Growth after 48 hours. All Specime... 01/09/17 Influenza Virus Type A Antigen - Final, Complete 01/09/17 Influenza Virus Type B Antigen - Final, Complete 01/09/17 Urine Culture - Final, Complete VADIM ALVAREZ MD Jan 12, 2017 09:41
[2017-01-12 14:00] VITALS: BP 150/92
--- NOTE | 2017-01-12 16:09 | IPN ---
DATE: 01/12/2017 SUBJECTIVE: Patient was seen and examined at the bedside today morning. He does not have any acute complaints. Intravenous (IV) fluids were stopped this morning. Renal function continues to improve. Creatinine is down to 1.9 now. REVIEW OF SYSTEMS: Patient denies any fevers, chills, rigors, headache, nausea, vomiting, chest pain, shortness of breath, pain in abdomen, constipation, or diarrhea. Rest of review of systems is negative. OBJECTIVE: Vital signs: Temperature is 98.1 degrees Fahrenheit, blood pressure 135/66, pulse is 50, respiratory rate of 18, saturation 99% on room air. Intake and output: Urine output recorded is 1.7 liters yesterday, 500 mL so far today since overnight. Weight in the bed scale is 85.3 kg. PHYSICAL EXAMINATION: GENERAL: Patient is awake, alert, oriented times three, sitting in bed. No apparent distress. HEAD AND NECK: Extraocular muscles intact. Pupils equally round and reactive to light. Mucous membranes are moist. Neck is supple. There is no jugular venous distention (JVD). CARDIOVASCULAR: S1, S2, regular rate. No murmur, rub, or gallop. RESPIRATORY: Chest is clear to auscultation bilaterally. Bilateral equal air entry. No rales or rhonchi. ABDOMEN: Soft. Positive bowel sounds. Nontender. No ascites. No organomegaly. MUSCULOSKELETAL: Extremities have no edema. Pulses are 2+. CENTRAL NERVOUS SYSTEM: No focal neurological deficit. Power is 5/5 in all extremities. PSYCHIATRIC: Normal mood and affect. LABORATORY REVIEW: CBC showed a WBC 8.5, hemoglobin 11, platelets are 275. BMP done today showed sodium 145, potassium 3.9, chloride 117, bicarbonate 22, BUN 34, creatinine is 1.99; it was 2.7 yesterday. Calcium 8.9. PTH level done yesterday was low at 12.4. Vitamin D level is low at 9.7. Immunology: C3 and C4 levels are normal. Total complement CH50 is more than 65. Rest of the labs are pending. CURRENT INPATIENT MEDICATIONS: Patient's medications were all reviewed by me. His thiamine has been stopped. Normal saline (NS) has been stopped now. There is no other change in the medications today as compared with yesterday. ASSESSMENT: A 66-year-old male with recent admission for acute renal failure and hypercalcemia. 1. Acute renal failure. Most likely secondary to dehydration with concurrent use of metformin, angiotensin receptor blockers, and nonsteroidal anti-inflammatory drug (NSAID) as outpatient; however, renal function is significantly getting better. IV fluids have been stopped. Continue to encourage oral hydration. Creatinine is down to 1.9 now. 2. Hypercalcemia. Calcium level is significantly better. It is down to 8.9 now. No further need of IV fluids. PTH level is low Vitamin D level is low as well. Multiple myeloma workup is pending. 3. History of alcohol abuse. Continue folic acid and Ativan as needed for withdrawal. 4. Hypertension. Patient's blood pressure is acceptable at this time. Continue to hold the antihypertensive medications. Avoid the use of angiotensin receptor blockers because of acute renal failure. 5. Diabetes mellitus, type 2. Avoid metformin in this patient with his acute renal failure. Continue insulin sliding scale as needed. It is okay to give sulfonylurea to this patient. DISCHARGE PLANNING: Patient's renal function is significantly getting better. Electrolytes are improved, close to his baseline. It is okay to discharge the patient from nephrology standpoint.
[2017-01-12 22:00] VITALS: BP 142/69
[2017-01-13 00:15] LABS: FREE KAPPA LIGHT CHAINS SERUM 27.1 mg/L (3.3-19.4); FREE LAMBDA LIGHT CHAINS SERUM 24.6 mg/L (5.7-26.3); KAPPA/LAMBDA RATIO SERUM 1.1 (0.26-1.65)
[2017-01-13] MEDS: HEPARIN SOD (PORCINE) 5000 UNITS/ML VIAL SC SCH (05:32)
[2017-01-13 06:00] VITALS: BP 131/98
[2017-01-13 06:49] LABS: MEAN CORPUSCULAR HEMOGLOBIN 35.1 pg (27.0-33.0); MEAN CORPUSCULAR HGB CONC 34.2 g/dl (32.0-36.5); MEAN CORPUSCULAR VOLUME 102.5 fl (80.0-96.0); RED CELL DISTRIBUTION WIDTH 12.7 % (11.5-14.5); WHITE BLOOD COUNT 9.1 K/mm3 (4.0-10.0)
[2017-01-13] MEDS ORDERED: GLIM1TAB PO (06:49)
[2017-01-13] MEDS ORDERED: THIA50CA PO (06:49)
[2017-01-13] MEDS ORDERED: AMLO5TAB2 PO (06:49)
[2017-01-13] MEDS ORDERED: FOLI1TAB4 PO (06:49)
[2017-01-13 07:01] LABS: CALCIUM LEVEL 8.6 MG/DL (8.8-10.2); CREATININE FOR GFR 1.77 MG/DL (0.70-1.30); GLOMERULAR FILTRATION RATE 41.3 (>49); POTASSIUM SERUM 3.6 MEQ/L (3.5-5.1)
[2017-01-13] MEDS: HumaLOG INSULIN (NovoLOG) PER UNIT SC SCH (07:30)
[2017-01-13] MEDS: MULTIVITAMINS/MINERALS THERAP 1 TAB PO SCH (09:28)
[2017-01-13] MEDS: FOLIC ACID 1 MG TAB PO SCH (09:28)
--- NOTE | 2017-01-13 22:53 | DSES ---
DATE OF ADMISSION: 01/09/2017 DATE OF DISCHARGE: 01/13/2017 PRIMARY CARE PROVIDER: Dr. Multani. DISCHARGE DIAGNOSES: 1. Acute renal failure from prerenal causes due to dehydration on the background of metformin, non-steroidal anti-inflammatory drugs (NSAIDs) and angiotensin receptor blockers. 2. Hypercalcemia. Workup in progress and unsure whether hypercalcemia was due to dehydration, renal failure or whether this hypercalcemia is the primary cause leading to renal failure. 3. Alcohol abuse. 4. Hypertension. 5. Diabetes. 6. Acute metabolic encephalopathy. 7. Multiple rib fractures after a trip and fall at home. DISCHARGE MEDICATIONS: - amlodipine 5 mg by mouth daily - folic acid 1 mg by mouth daily - glimepiride 1 mg by mouth daily - thiamine 50 mg by mouth daily - gabapentin 400 mg by mouth three times a day - magnesium oxide 800 mg by mouth three times a day - tramadol 50 mg by mouth twice a day as needed for pain - trazodone 100 mg by mouth at bedtime HOSPITAL COURSE: This is a 66-year-old male with a history of alcohol abuse who has been having neck pain for two weeks and subsequently had a fall at home. The patient was seen in urgent care and prescribed pain medication and muscle relaxants. Subsequently, the patient had rib x-ray done which showed multiple rib fractures ninth to eleventh on the posterior aspect of the right. The patient was then seen by his primary care provider and had blood work done and was sent to the emergency room for abnormal blood work showing acute renal failure. As per the patient's mother, the patient has been behaving abnormally, having hallucinations, confusion, loss of memory for at least two weeks. In the emergency room, the patient was found to have creatinine of 6.3 and was admitted for acute renal failure. The patient had abdominal CT scan and renal ultrasound done which did not show any obstruction. The patient was also noted to be hypercalcemic with calcium of 12.9. The patient started treatment with intravenous (IV) fluids. His NSAIDs, JORDON inhibitors and metformin were held. The patient improved with management with IV fluids. The patient's calcium also improved. Hypercalcemia workup has been ordered, which shows low parathyroid hormone (PTH), low vitamin D, normal lambda kappa ratio. Some of the other tests for hypercalcemia are still pending. His acute renal failure at this point is felt to be related to extreme dehydration from alcohol abuse, poor intake on the background of metformin, NSAIDs, and angiotensin receptor blockers. However, hypercalcemia as the cause of acute renal failure cannot also be ruled out. At this point it is unsure whether hypercalcemia was as a result of dehydration and renal failure or whether hypercalcemia was the primary event which caused the dehydration and renal failure. The patient has been advised to refrain from taking [id number] calcium supplements. The patient's renal functions are improving. The patient's metformin and losartan have been discontinued. Also, the patient's Invokana has been discontinued. In its place, the patient has been started on amlodipine and glimepiride. The patient's sugars have remained well controlled in the hospital without any medications, but I expect it to go up as the patient's appetite is improving, and will probably have more intake at home. On the day of discharge, the patient did not have any complaints. Vitals are stable, and functionally he was at his baseline. The patient did not have any confusion or hallucinations in the hospital. PHYSICAL EXAMINATION: VITAL SIGNS: Temperature 97.4, pulse 84, respiratory rate 18, blood pressure 131/98, pulse oximetry 94% on room air. GENERAL: The patient awake, alert, and oriented times three, lying down in bed in no acute distress. HEENT: Normocephalic, atraumatic. Moist mucous membranes. Anicteric eyes. CHEST: Clear to auscultation. CARDIOVASCULAR: S1, S2, regular. No rub, murmur or gallop. ABDOMEN: Soft, nontender. Bowel sounds present. EXTREMITIES: No edema. LABORATORY DATA: WBC 9.1, hemoglobin 11.6, platelets 310. Sodium 145, potassium 3.6, chloride 117, bicarbonate 20, BUN 26, creatinine 1.77, fasting glucose 108, calcium 8.6. 25 hydroxy vitamin D 9.7. PTH 12.4. SPEP is in progress. Free kappa lambda ratio is normal. DISPOSITION: The patient is discharged home in a stable condition. DISCHARGE INSTRUCTIONS: The patient to followup with primary care provider in one week. Patient to followup with nephrology, Dr. Anderson, in one week. Regular diet. Activity as tolerated. Patient is instructed to drink at least two liters or more of fluid in a day. Patient advised to refrain from alcohol abuse.
[2017-01-14 13:28] LABS: GAMMA GLOBULIN % 9.8 % (11.1-18.8)
[2017-01-14 13:29] LABS: ALBUMIN 3.71 GM/DL (3.29-5.55)
[2017-01-15 00:06] LABS: FREE KAPPA LIGHT CHAINS SERUM 36.2 mg/L (3.3-19.4); FREE LAMBDA LIGHT CHAINS SERUM 29.9 mg/L (5.7-26.3); KAPPA/LAMBDA RATIO SERUM 1.21 (0.26-1.65)
[2017-01-15 14:14] LABS: VITAMIN D 1,25 DIHYDROXY < 5.0 pg/mL (19.9-79.3)
[2017-01-17 08:07] LABS: PTH RELATED PEPTIDE < 1.1 pmol/L (.)
== END 2017-01-13 09:35 | disposition home or self-care (01) | DRG 683 ==
LOC: M ED 12:53 → M ED INP 20:18 → M MS5PR 22:50
PROVIDERS: ADMIT Internal Medicine; ATTEND Internal Medicine Nephrology
DX: N17.9 Acute kidney failure, unspecified (principal); E87.2 Acidosis; S22.41XA Multiple fractures of ribs, right side, initial encounter for closed fracture; I10 Essential (primary) hypertension; E11.40 Type 2 diabetes mellitus with diabetic neuropathy, unspecified; F10.10 Alcohol abuse, uncomplicated; E83.52 Hypercalcemia; G62.9 Polyneuropathy, unspecified; Z79.899 Other long term (current) drug therapy; Z79.84 Long term (current) use of oral hypoglycemic drugs; N40.1 Benign prostatic hyperplasia with lower urinary tract symptoms; W01.0XXA Fall on same level from slipping, tripping and stumbling without subsequent striking against object, initial encounter; Y92.009 Unspecified place in unspecified non-institutional (private) residence as the place of occurrence of the external cause; Y93.01 Activity, walking, marching and hiking; Y99.9 Unspecified external cause status

== ENCOUNTER 2017-01-18 09:01 | Emergency (ER) | payer MEDICARE, BC ==
[~2017-01-18] VITALS: Ht 180.3 cm; Wt 83.3 kg
[2017-01-18 11:34] VITALS: BP 131/62
--- NOTE | 2017-01-18 11:46 | REP ---
REASON: Distal fibular fracture. AP and lateral views of the left tibia and fibula show an oblique distal fibular fracture. The mortise is unaffected and there are no additional fractures. Signed by Ian Castaneda DO 01/18/2017 12:14 P
== END 2017-01-18 11:40 | disposition home or self-care (01) ==
LOC: M ED 09:01
DX: S82.392A Other fracture of lower end of left tibia, initial encounter for closed fracture (principal); W19.XXXA Unspecified fall, initial encounter; Y92.099 Unspecified place in other non-institutional residence as the place of occurrence of the external cause; Y93.89 Activity, other specified; Y99.9 Unspecified external cause status

== ENCOUNTER 2017-02-21 10:47 | Inpatient (IN) | payer MEDICARE, BC ==
[~2017-02-21] VITALS: Ht 180.3 cm; Wt 85.4 kg
[~2017-02-21 10:47] MED LIST changes: +THIAMINE 100 MG TAB PO SCH; +THIAMINE HCL 200 MG/2 ML VIAL (J3411) IV SCH
[2017-02-21] MEDS ORDERED: NS 500 ML IV ONE (11:15)
[2017-02-21 12:08] LABS: VENOUS BASE EXCESS -16.1 (-2.0-2.0); VENOUS O2 SATURATION 94.9 % (60.0-80.0); VENOUS PARTIAL PRESSURE CO2 20.1 mmHg (38.0-50.0); VENOUS PARTIAL PRESSURE O2 80.2 mmHg (30.0-50.0); VENOUS STANDARD HCO3 12.7 MEQ/L; VENOUS TOTAL CO2 9.2 MEQ/L (24.0-28.0)
[2017-02-21 12:13] LABS: BASO % 0.4 % (0.0-1.0); EOS % 0.3 % (0.0-3.0); LARGE UNSTAINED CELL # 0.1 K/mm3 (0.0-0.4); LARGE UNSTAINED CELL % 0.9 % (0.0-4.0); LYMPH # 1.6 K/mm3 (1.5-4.5); LYMPH % 10.9 % (24.0-44.0); MEAN CORPUSCULAR HEMOGLOBIN 32.8 pg (27.0-33.0); MEAN CORPUSCULAR HGB CONC 32.3 g/dl (32.0-36.5); MEAN CORPUSCULAR VOLUME 101.6 fl (80.0-96.0); MONO # 0.5 K/mm3 (0.0-0.8); MONO % 3.3 % (0.0-5.0); NEUTROPHILS # 12.2 K/mm3 (1.8-7.7); NEUTROPHILS % 84.1 % (36.0-66.0); PLATELET COUNT, AUTOMATED 324 k/mm3 (150-450); WHITE BLOOD COUNT 14.5 K/mm3 (4.0-10.0)
[2017-02-21 12:24] LABS: ANION GAP 21 MEQ/L (8-16); BLOOD UREA NITROGEN 23 MG/DL (7-18); CALCIUM LEVEL 9.2 MG/DL (8.8-10.2); CARBON DIOXIDE LEVEL 13 MEQ/L (21-32); CHLORIDE LEVEL 107 MEQ/L (98-107); CREATININE FOR GFR 1.15 MG/DL (0.70-1.30); GLOMERULAR FILTRATION RATE > 60.0 (>49); GLUCOSE, FASTING 135 MG/DL (80-110); MAGNESIUM LEVEL 2.7 MG/DL (1.8-2.4); POTASSIUM SERUM 3.9 MEQ/L (3.5-5.1); SODIUM LEVEL 141 MEQ/L (136-145)
[2017-02-21] MEDS ORDERED: ONDANSETRON 4MG/2ML VIAL (J2405) IV ONE (12:30)
[2017-02-21] MEDS ORDERED: NS 1,000 ML IV ONE (13:00)
[2017-02-21 13:01] LABS: OSMOLALITY SERUM 334 MOSM/KG (280-301)
[2017-02-21] MEDS ORDERED: PANTOPRAZOLE 40MG INJ (PROTONIX) (C9113) IV ONE (14:00)
[2017-02-21] MEDS ORDERED: ACETAMINOPHEN TAB 650MG DOSE (2X325MG) PO PRN (14:45)
[2017-02-21] MEDS ORDERED: ONDANSETRON 4 MG TAB (S0181) PO PRN (14:45)
[2017-02-21] MEDS ORDERED: GLUCAGON FOR INJ 1 MG VIAL (J1610) SC PRN (15:00)
[2017-02-21] MEDS ORDERED: DEXTROSE 50% 50 ML SYRINGE IV PRN (15:00)
[2017-02-21] MEDS ORDERED: GLUCOSE 4 GM CHEW TABLET PO PRN (15:00)
[2017-02-21] MEDS ORDERED: THIA50CA PO (15:02)
[2017-02-21] MEDS ORDERED: GABA-283 PO (15:02)
[2017-02-21] MEDS ORDERED: GLIM1TAB PO (15:02)
[2017-02-21] MEDS ORDERED: MAGN1TAB25 PO (15:02)
[2017-02-21] MEDS ORDERED: FOLI1TAB4 PO (15:02)
[2017-02-21] MEDS ORDERED: TRAZ-136 PO (15:02)
[2017-02-21] MEDS ORDERED: AMLO5TAB2 PO (15:02)
[2017-02-21 15:56] LABS: ABG BASE EXCESS -13.7 (-2.0-2.0); ABG HCO3 9.9 MEQ/L (22.0-26.0); ABG PARTIAL PRESSURE O2 88.4 mmHg (75.0-100.0); ABG STANDARD HCO3 14.1 MEQ/L (22.0-26.0); ABG TOTAL CO2 10.5 MEQ/L (23.0-31.0); ABG pH (ARTERIAL) 7.315 UNITS (7.350-7.450)
[2017-02-21] MEDS ORDERED: GABAPENTIN 400 MG CAP PO SCH (16:00)
[2017-02-21] MEDS ORDERED: LORazepam 2 MG/ML VIAL (J2060) IV PRN (16:00)
[2017-02-21] MEDS ORDERED: SODIUM BICARBONATE IV SCH (16:00)
[2017-02-21] MEDS ORDERED: NS IV SCH (16:00)
[2017-02-21] MEDS ORDERED: **hydrALAZINE** 10 MG TAB PO ONE (16:00)
[2017-02-21 16:01] LABS: OSMOLALITY SERUM 316 MOSM/KG (280-301)
[2017-02-21 16:02] LABS: METHADONE URINE NEGATIVE (NEGATIVE)
[2017-02-21 16:04] LABS: ABG PARTIAL PRESSURE CO2 19.9 mmHg (35.0-45.0)
[2017-02-21 16:15] LABS: ANION GAP 24 MEQ/L (8-16); BLOOD UREA NITROGEN 21 MG/DL (7-18); CALCIUM LEVEL 8.3 MG/DL (8.8-10.2); CARBON DIOXIDE LEVEL 10 MEQ/L (21-32); CHLORIDE LEVEL 111 MEQ/L (98-107); CREATININE FOR GFR 0.96 MG/DL (0.70-1.30); GLOMERULAR FILTRATION RATE > 60.0 (>49); GLUCOSE, FASTING 165 MG/DL (80-110); MAGNESIUM LEVEL 2.6 MG/DL (1.8-2.4); POTASSIUM SERUM 4.3 MEQ/L (3.5-5.1); SODIUM LEVEL 145 MEQ/L (136-145)
[2017-02-21] MEDS ORDERED: traZODone 100 MG TAB PO PRN (16:15)
[2017-02-21] MEDS ORDERED: THIAMINE HCL 200 MG/2 ML VIAL (J3411) IV ONE (16:45)
[2017-02-21] MEDS: HEPARIN SOD (PORCINE) 5000 UNITS/ML VIAL SC SCH ×2 (16:50→22:00)
--- NOTE | 2017-02-21 16:59 | REP ---
Chest x-ray: Two views: History: Cough. Comparison chest x-ray: 01/09/2017. Findings: An EKG monitoring electrode is seen on the right. The lungs are symmetrically aerated and free of infiltrate. Pleural angles are sharp. Heart is not enlarged. No infiltrate is seen. Pulmonary vasculature is not increased. The aorta somewhat tortuous. There are ununited rib fractures on the left posteriorly. Impression: No acute disease. Signed by Jose Koch MD 02/21/2017 05:48 P
--- NOTE | 2017-02-21 17:19 | REP ---
LEFT ANKLE: Four views of the left ankle are performed. The ankle is seen in the cast which obscures underlying osseous detail. There is an old fracture of the distal fibula which is unchanged since prior exam of 01/18/2017. The overlying cast obscures underlying osseous detail. Signed by Heath White MD 02/22/2017 09:47 A
[2017-02-21 17:50] LABS: ANION GAP 22 MEQ/L (8-16); BLOOD UREA NITROGEN 22 MG/DL (7-18); CALCIUM LEVEL 8.2 MG/DL (8.8-10.2); CARBON DIOXIDE LEVEL 11 MEQ/L (21-32); CHLORIDE LEVEL 108 MEQ/L (98-107); CREATININE FOR GFR 0.97 MG/DL (0.70-1.30); GLOMERULAR FILTRATION RATE > 60.0 (>49); GLUCOSE, FASTING 187 MG/DL (80-110); MAGNESIUM LEVEL 2.6 MG/DL (1.8-2.4); POTASSIUM SERUM 4.8 MEQ/L (3.5-5.1); SODIUM LEVEL 141 MEQ/L (136-145)
[2017-02-21 18:00] VITALS: BP 196/91
[2017-02-21] MEDS: HumaLOG INSULIN (NovoLOG) PER UNIT SC SCH (18:29)
[2017-02-21] MEDS: MULTIVITAMINS/MINERALS THERAP 1 TAB PO SCH (18:31)
[2017-02-21 20:00] VITALS: BP 146/85
[2017-02-21 20:28] LABS: INR 1.08
[2017-02-21] MEDS: MAGNESIUM OXIDE 400 MG TAB (MAG-OX) PO SCH (20:43)
[2017-02-21] MEDS: SODIUM BICARBONATE 100 MEQ in D5W 1,000 ML IV SCH (20:43)
[2017-02-21] MEDS: LABETALOL 100 MG TAB PO SCH (20:44)
[2017-02-21] MEDS: OXAZEPAM 15 MG CAP PO PRN (20:44)
[2017-02-21] MEDS: GABAPENTIN 400 MG CAP PO SCH (20:44)
[2017-02-21] MEDS ORDERED: HumaLOG INSULIN (NovoLOG) PER UNIT SC SCH (21:00)
[2017-02-21 23:59] VITALS: BP 164/78
[2017-02-22] MEDS ORDERED: **hydrALAZINE** 10 MG TAB PO SCH
[2017-02-22] MEDS: OXAZEPAM 15 MG CAP PO PRN (00:23)
[2017-02-22 00:53] LABS: ANION GAP 10 MEQ/L (8-16); BLOOD UREA NITROGEN 20 MG/DL (7-18); CALCIUM LEVEL 8.1 MG/DL (8.8-10.2); CARBON DIOXIDE LEVEL 21 MEQ/L (21-32); CHLORIDE LEVEL 107 MEQ/L (98-107); CREATININE FOR GFR 1.16 MG/DL (0.70-1.30); GLOMERULAR FILTRATION RATE > 60.0 (>49); GLUCOSE, FASTING 239 MG/DL (80-110); MAGNESIUM LEVEL 2.1 MG/DL (1.8-2.4); POTASSIUM SERUM 3.6 MEQ/L (3.5-5.1); SODIUM LEVEL 138 MEQ/L (136-145)
[2017-02-22 04:00] VITALS: BP 153/79
[2017-02-22] MEDS: SODIUM BICARBONATE 100 MEQ in D5W 1,000 ML IV SCH (04:33)
[2017-02-22 04:46] LABS: ANION GAP 11 MEQ/L (8-16); BLOOD UREA NITROGEN 16 MG/DL (7-18); CALCIUM LEVEL 7.9 MG/DL (8.8-10.2); CARBON DIOXIDE LEVEL 24 MEQ/L (21-32); CHLORIDE LEVEL 108 MEQ/L (98-107); CREATININE FOR GFR 0.96 MG/DL (0.70-1.30); GLOMERULAR FILTRATION RATE > 60.0 (>49); GLUCOSE, FASTING 181 MG/DL (80-110); MAGNESIUM LEVEL 2.2 MG/DL (1.8-2.4); POTASSIUM SERUM 3.3 MEQ/L (3.5-5.1); SODIUM LEVEL 143 MEQ/L (136-145)
[2017-02-22] MEDS: HEPARIN SOD (PORCINE) 5000 UNITS/ML VIAL SC SCH (05:29)
[2017-02-22 05:31] LABS: MEAN CORPUSCULAR HEMOGLOBIN 33.1 pg (27.0-33.0); MEAN CORPUSCULAR HGB CONC 33.6 g/dl (32.0-36.5); MEAN CORPUSCULAR VOLUME 98.3 fl (80.0-96.0); RED CELL DISTRIBUTION WIDTH 12.8 % (11.5-14.5)
[2017-02-22 05:32] LABS: WHITE BLOOD COUNT 6.8 K/mm3 (4.0-10.0)
--- NOTE | 2017-02-22 05:41 | HPEPDOC ---
General Date of Admission Feb 21, 2017 at 15:25 Primary Care Physician: SANDOR CRUZ DO Chief Complaint The patient is a 66-year-old male admitted with a reason for visit of High Anion Gap Metabolic Acidosis. History of Present Illness CHIEF COMPLAINT: abnormal labs, sent from Dr. Anderson's office to ED HISTORY OF PRESENT ILLNESS: 66 yo M presents to [facility] ED after he was seen by Dr. Anderson in the office and found to have abnormal labs at around 9 AM this morning. States he had no symptoms. Labs shown to me by the patient showed: CO2 of 11.4, WBC 13.6, MCV 104.2, a UA: >160 ketones, trace lysed blood, 30 protein, Ur Cr of 121.3, Ur Microalbumin 117.1. Patient denies abdominal pain, vomiting, dizziness, fevers, chills, blurred vision, runny nose, sore throat, cough, edema, dysuria, hematuria, hematochezia. Admits to generalized weakness, heartburn which he began to have a couple of hours ago today. Admits to on and off diarrhea: loose waterry stools. Admits to nausea and 1 episode of nonbloody but coffee colored emesis. Admits to loss of appetite since he has been in acute kidney failure he states. Admits to 25 pounds weight loss in 6 months which was both unintentional and intentional partially. Right now, c/o heartburn and would like antacid, c/o thirst and would like to drink water and eat something. In addition, admits that he drank EtOH his whole life, and progressively more and more since he was 18 years old due to addiction. Admits to a family hx significant for alcoholism. States he was drinking more this month but could not quantify exactly how much more for me. States he will drink 1/2 liter a day of vodka and has done this this past week as well as last week. 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 Admits to a L ankle fracture. 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 No illicit drug use. Lives at home by self. FAMILY HISTORY: Significant for Diabetes CODE STATUS: FULL CODE REVIEW OF SYSTEMS: All ROS were negative except for those as stated above in HPI. PHYSICAL EXAMINATION: Please see VS and PE below. LABORATORY DATA: Labs were remarkable for: VBG: pH: 7.248, pCO2: 20.1, pO2: 80.2. WBC 14.5, MCV 101.6, Anion Gap: 21, BUN 23, Cr 1.15, GFR >60, fasting glucose: 135, HgbA1C: 6.5, serum osmolality: 334, Lactic Acid: 8.7, M.7 Ethyl Alcohol Level: 0.096 MICROBIOLOGY: Blood cx x 2 pending RADIOLOGY: CXR: (-) L Ankle X-ray AP/Lateral: Four views of the left ankle were performed. The ankle is seen in the cast which obscures underlying osseous detail. There is an old fracture of the distal fibula which is unchanged since prior exam of 01/18/2017. The overlying cast obscures underlying osseous detail. ASSESSMENT: 66 yo M is presenting for alcoholic ketoacidosis, lactic acidosis, and anion gap metabolic acidosis. He also has a L distal fibula fracture in a cast. In addition, he has some leukocytosis and an ethyl alcohol level of 0.096. Patient also has low bicarbonate level. PLAN: Admit to PCU. Will give 100 mg IV thiamine and continue 100 mg thiamine PO daily. Will also give folic acid and MV daily. Will add PRN serax and ativan for EtOH withdrawal and agitation/anxiety. Will start NS @ 150 mLs Monitor electrolytes: K, Mg, Phos q4h and replete as necessary Will monitor BP and add antihypertensives and adjust as necessary Will allow carb consistent diet as patient able to tolerate PO Have consulted Dr. Schaefer of Nephrology for assistance with management of low bicarbonate level and Sodium Bicarbonate drip management as well as anion gap metabolic acidosis. Have consulted Dr. Portillo of Orthopedics for L ankle fracture of distal fibula. Will follow labs daily: CBC, BMP, Mg, Phos. Follow up on urine osmolality, acetone/ketone, and ABG. Have sent blood cx x 2. 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 Royal Lopez, and was physically present in the building during the encounter and was fully available. As needed, all aspects of the patient interview, examination, medical decision making process, and medical care plan development were reviewed and approved by the preceptor. Preceptor is aware and concurs with the plan as stated in the body of this note and will attest to such by his/her cosignature. Home Medications Scheduled Amlodipine Besylate (Amlodipine Besylate) 5 Mg Tab, 5 MG PO DAILY, (Reported) Folic Acid (Folic Acid) 1 Mg Tab, 1 MG PO DAILY, (Reported) Gabapentin (Gabapentin) 400 Mg Cap, 400 MG PO TID, (Reported) Glimepiride (Glimepiride) 1 Mg Tab, 1 MG PO DAILY, (Reported) Magnesium Oxide (Magnesium) 400 Mg Tab, 800 MG PO TID, (Reported) Thiamine HCl (Thiamine) 50 Mg Cap, 50 MG PO DAILY, (Reported) Scheduled PRN Trazodone HCl (Trazodone HCl) 100 Mg Tab, 100 MG PO QHS PRN for SLEEP, (Reported ) Allergies Coded Allergies: No Known Allergies (Unverified , 01/09/17) Physical Examination General Exam: Positive: Alert, Cooperative, No Acute Distress Eye Exam: Positive: Conjunctiva & lids normal ENT Exam: Positive: Atraumatic Neck Exam: Positive: Supple, Negative: JVD, thyromegaly, Lymphadenopathy Chest Exam: Positive: Clear to auscultation Heart Exam: Positive: Rate Normal, Regular Rhythm, Normal S1, Normal S2 Abdomen Exam: Positive: Normal bowel sounds, Soft, Negative: Tenderness, Hepatospenomegaly Extremity Exam: Positive: Other (LLE in cast), Negative: Clubbing, Cyanosis, Edema Skin Exam: Positive: Nl turgor and temperature, Negative: Rash Neuro Exam: Positive: Normal Speech, Strength at 5/5 X4 ext (with exception of LLE as I did not test this extremity due to fracture/cast) Psych Exam: Positive: Mental status NL, Mood NL, Memory Intact, Oriented x 3 Vital Signs Vital Signs Date Time Temp Pulse Resp B/P (MAP) Pulse Ox O2 Delivery O2 Flow Rate FiO2 02/21/17 18:00 98.9 94 22 196/91 (126) 97 Room Air Laboratory Data Labs 24H Laboratory Tests 2 02/21/17 11:17: White Blood Count 14.5H, Red Blood Count 4.81, Hemoglobin 15.8, Hematocrit 48.9 , Mean Corpuscular Volume 101.6H, Mean Corpuscular Hemoglobin 32.8, Mean Corpuscular Hemoglobin Concent 32.3, Red Cell Distribution Width 13.0, Platelet Count 324, Neutrophils (%) (Auto) 84.1H, Lymphocytes (%) (Auto) 10.9L, Monocytes (%) (Auto) 3.3, Eosinophils (%) (Auto) 0.3, Basophils (%) (Auto) 0.4, Neutrophils # (Auto) 12.2H, Lymphocytes # (Auto) 1.6, Monocytes # (Auto) 0.5, Eosinophils # (Auto) 0.0, Basophils # (Auto) 0.0, Large Unclassified Cells % 0.9 , Large Unclassified Cells # 0.1, Blood Gas Bicarbonate Standard 12.7, Venous Blood pH 7.248L, Venous Blood Partial Pressure CO2 20.1L, Venous Blood Partial Pressure O2 80.2H, Venous Blood Total Carbon Dioxide 9.2L, Venous Blood HCO3 8.6L, Venous Blood Oxygen Saturation 94.9H, Venous Blood Base Excess -16.1L, Anion Gap 21H, Glomerular Filtration Rate > 60.0, Estimated Mean Plasma Glucose 140H, Hemoglobin A1c 6.5H, Osmolality 334H, Lactic Acid Level 8.7*H, Blood Urea Nitrogen 23H, Creatinine 1.15, Sodium Level 141, Potassium Level 3.9, Chloride Level 107, Carbon Dioxide Level 13L, Calcium Level 9.2, Magnesium Level 2.7H, Ethyl Alcohol Level 0.096H 02/21/17 15:15: Anion Gap 24H, Glomerular Filtration Rate > 60.0, Osmolality 316H, Blood Urea Nitrogen 21H, Creatinine 0.96, Sodium Level 145, Potassium Level 4.3, Chloride Level 111H, Carbon Dioxide Level 10L, Calcium Level 8.3L, Magnesium Level 2.6H, Phosphorus Level 3.0, B-Hydroxybutyrate > 46.00H 02/21/17 15:27: Urine Appearance CLEAR, Urine Color YELLOW, Urine pH 5.0, Urine Specific Bicknell 1.013, Urine Protein NEGATIVE, Urine Glucose (UA) 1+H, Urine Ketones 2+H , Urine Urobilinogen 0.2, Urine Bilirubin NEGATIVE, Urine Leukocyte Esterase NEGATIVE, Urine Blood NEGATIVE, Urine Nitrite NEGATIVE, Urine WBC (Auto) 1, Urine RBC (Auto) 0, Urine Hyaline Casts (Auto) 0, Urine Bacteria (Auto) NEGATIVE , Urine Squamous Epithelial Cells 0, Urine Sperm (Auto) , Urine Random Osmolality 487L, Urine Amphetamines Screen NEGATIVE, Urine Benzodiazepines Screen NEGATIVE, Urine Opiates Screen NEGATIVE, Urine Methadone Screen NEGATIVE , Urine Barbiturates Screen NEGATIVE, Urine Phencyclidine Screen NEGATIVE, Urine Cocaine Metabolite Screen NEGATIVE, Urine Cannabinoids Screen NEGATIVE 02/21/17 15:46: Blood Gas Bicarbonate Standard 14.1L, Arterial Blood pH 7.315L, Arterial Blood Partial Pressure CO2 19.9*L, Arterial Blood Partial Pressure O2 88.4, Arterial Blood Total CO2 10.5L, Arterial Blood HCO3 9.9L, Arterial Blood Base Excess - 13.7L, Arterial Blood Oxygen Saturation 96.6 02/21/17 17:05: Anion Gap 22H, Glomerular Filtration Rate > 60.0, Blood Urea Nitrogen 22H, Creatinine 0.97, Sodium Level 141, Potassium Level 4.8, Chloride Level 108H, Carbon Dioxide Level 11L, Calcium Level 8.2L, Phosphorus Level 3.2, Magnesium Level 2.6H CBC/BMP Laboratory Tests 02/21/17 11:17 Red Blood Count 4.81, Mean Corpuscular Volume 101.6 H, Mean Corpuscular Hemoglobin 32.8, Mean Corpuscular Hemoglobin Concent 32.3, Red Cell Distribution Width 13.0, Neutrophils (%) (Auto) 84.1 H, Lymphocytes (%) (Auto) 10.9 L, Monocytes (%) (Auto) 3.3, Eosinophils (%) (Auto) 0.3, Basophils (%) ( Auto) 0.4, Neutrophils # (Auto) 12.2 H, Lymphocytes # (Auto) 1.6, Monocytes # ( Auto) 0.5, Eosinophils # (Auto) 0.0, Basophils # (Auto) 0.0, Calcium Level 9.2 02/21/17 15:15 Calcium Level 8.3 L 02/21/17 17:05 Calcium Level 8.2 L Plan / VTE VTE Prophylaxis Ordered?: Yes (heparin) RORO POOLE OGME-1 Feb 21, 2017 19:43
[2017-02-22 08:00] VITALS: BP 150/74
[2017-02-22] MEDS ORDERED: POTASSIUM CHLORIDE 10 MEQ SR TABLET PO ONE (08:00)
[2017-02-22] MEDS: HumaLOG INSULIN (NovoLOG) PER UNIT SC SCH (08:35)
[2017-02-22 08:36] VITALS: BP 150/74
[2017-02-22] MEDS: LABETALOL 100 MG TAB PO SCH (08:36)
[2017-02-22] MEDS: GABAPENTIN 400 MG CAP PO SCH (08:36)
[2017-02-22] MEDS: MAGNESIUM OXIDE 400 MG TAB (MAG-OX) PO SCH (08:36)
[2017-02-22] MEDS: MULTIVITAMINS/MINERALS THERAP 1 TAB PO SCH (08:37)
[2017-02-22] MEDS ORDERED: FOLIC ACID 1 MG TAB PO SCH (09:00)
[2017-02-22] MEDS ORDERED: THIAMINE HCL 200 MG/2 ML VIAL (J3411) IV SCH (09:00)
[2017-02-22] MEDS ORDERED: THIAMINE 100 MG TAB PO SCH ×2 (09:00)
[2017-02-22] MEDS ORDERED: PANTOPRAZOLE 40MG TAB (PROTONIX) PO SCH (09:00)
[2017-02-22] MEDS ORDERED: amLODIPine 5 MG TAB PO SCH (09:00)
[2017-02-22] MEDS ORDERED: SLF 3 ML SYR IV PRN (09:00)
[2017-02-22] MEDS ORDERED: SLF 3 ML SYR IV SCH (14:00)
--- NOTE | 2017-02-24 06:59 | CR ---
DATE OF CONSULTATION: 02/21/2017 REFERRING PHYSICIAN: Royal Lopez D.O. REASON FOR CONSULTATION: Metabolic acidosis and lactic acidosis. HISTORY OF PRESENT ILLNESS: Mr. Lee is a 66-year-old gentleman who was sent to [facility] emergency room from the office by Dr. Anderson due to high anion gap metabolic acidosis. The patient has known history of heavy alcohol use. He also has hypertension and prior history of acute renal failure. Nephrology consultation was requested and the patient is seen in the emergency room. PAST MEDICAL AND SURGICAL HISTORY: Significant for: 1. History of type 2 diabetes. 2. Hypertension. 3. History of diabetic neuropathy. 4. History of heavy alcohol use. MEDICATIONS: Current medications include: - amlodipine 5 mg daily - folic acid 1 mg daily - gabapentin 400 mg three times a day - glimepiride 1 mg daily - magnesium oxide 400 mg three times a day - thiamine 50 mg daily - trazodone 100 mg at bedtime as needed for insomnia ALLERGIES: The patient has no known drug allergies. PERSONAL AND SOCIAL HISTORY: Patient has long history of heavy alcohol use. He denies any recreational drug use. There is no history of smoking. FAMILY HISTORY: Negative for any genetic kidney problems. REVIEW OF SYSTEMS: The patient denies any fever or chills. He reports that he has been drinking at least half a liter of vodka every day. His head and neck is unremarkable. Cardiovascular system is significant for hypertension. He denies any dyspnea or chest pain. Respiratory system is negative for cough or hemoptysis. Gastrointestinal (GI) system is negative for nausea, vomiting or diarrhea. Genitourinary () system is negative for dysuria or hematuria. Musculoskeletal system is negative for leg edema or significant arthritis. Hematological system is negative for anemia or thrombocytopenia. Psychosocial system is significant for heavy alcohol abuse. He also has history of insomnia. Skin is negative for rash or ulcers. Endocrine system is significant for type 2 diabetes. There is no history of thyroid problems. PHYSICAL EXAMINATION: Temperature is 98.9 degrees Fahrenheit, heart rate 94 per minute and respiratory rate 22 per minute. Blood pressure 196/90 mmHg and oxygen saturation is 97% on room air. Head is atraumatic. Neck is supple and without jugular venous distention (JVD) or thyroid enlargement. Pupils are equal and reactive to light and there is acetone smell on his breath. His heart rate is somewhat tachycardiac but regular heart sounds. Lungs sound clear to auscultation bilaterally. Abdomen is soft and nontender and without a palpable organomegaly. Bowel sounds are normal. Extremities have no cyanosis or clubbing. Skin is dry and without any rash or ulcers. Neurologically he is awake, alert and oriented times three. LABORATORY DATA: His WBC count is 14.5, hemoglobin 15.8 and hematocrit 48.9. Platelets 324. Blood gas showed a pH of 7.31, pCO2 19.9, pO2 88.4 and bicarb is 10.5. Urinalysis showed 2+ ketones and 1+ glucose. His ethyl alcohol level is 0.096 and beta hydroxybutyrate level is greater than 46. Sodium is 145 and potassium 4.3. Chloride 111, CO2 10, BUN 21 and creatinine 0.96. Glucose 165 and serum osmolarity is 316. A lactic acid level is 8.7 and calcium 8.3. Hemoglobin A1c is 6.5. Chest x-ray done in the emergency room today showed no acute disease. There is no infiltrate, effusion or congestion. PROBLEMS: 1. Lactic acidosis: Most likely this is related to heavy alcohol use. His alcohol level is quite high. The patient has high anion gap related to alcohol. The patient will be treated with intravenous (IV) fluid hydration and some sodium bicarbonate. Will recheck his chemistry. As his alcohol level comes down his lactic acidosis is likely to improve. 2. Metabolic acidosis. The patient has only mild chronic kidney disease. He denies any history of diarrhea. His acidosis is most likely related to heavy alcohol use and elevated lactic acid level. He is significantly compensated with respiratory alkalosis. At present we will hydrate him with IV fluid and sodium bicarbonate. The sodium bicarbonate drip ordered earlier has been changed to appropriate sodium and bicarbonate concentration. Chemistry will be repeated again in the morning. 3. Hypertension. His blood pressure is quite high. The patient will need IV fluid including further sodium load. We will add labetalol 100 mg three times a day and monitor his blood pressure closely. I would recommend to avoid hydralazine as it might cause further tachycardia. I thank you for involving me in the care of Mr. Lee. I will follow him along with you.
--- NOTE | 2017-02-24 13:43 | IPN ---
DATE: 02/12/2017 Mr. Lee was admitted yesterday with anion gap metabolic acidosis and lactic acidosis. He has known history of heavy alcohol use. His alcohol level was also quite elevated at 0.09. In any event, the patient was treated with sodium bicarbonate drip and he seems to be doing much better. His blood pressure was quite high yesterday on admission and antihypertensives were adjusted. This morning he is feeling much better and denies any nausea, vomiting, dyspnea or chest pain. PHYSICAL EXAMINATION: Temperature 99.2 degrees Fahrenheit, heart rate 68 per minute and respiratory rate 20 per minute. Blood pressure 150/74 mmHg and oxygen saturation 92% on room air. Head: Is atraumatic. Neck is supple and without JVD or thyroid enlargement. Pupils equal and reactive to light and sclera is anicteric. Ears, nose and throat are unremarkable. Heart: Sounds are regular and lungs clear to auscultation. Abdomen: Soft and nontender and without a palpable organomegaly. Bowel sounds are normal. Extremities have no cyanosis or clubbing. Neurologically he is awake, alert and oriented times three. Skin is without a rash or ulcers. Today's labs show WBC count 6.8, hemoglobin 13.5 and hematocrit 40.2. Sodium is 143 and potassium 3.3. BUN 16 and creatinine 0.96. Glucose 181 and calcium 7.9. A repeat lactic acid level is down to 1.8 while yesterday it was 8.7. PROBLEMS: 1. Anion gap metabolic acidosis. Yesterday the patient had an anion gap of 24. His lactic acid level was quite elevated at 8.7. Today's anion gap is normal and acidosis has complete feet resolved. His sodium bicarbonate drip is being stopped. 2. Hypokalemia. This is related to correction of acidosis and decreased oral intake. The patient will be given one dose of potassium chloride 40 mEq today. He should continue with regular diet. He is currently not any diuretics. 3. Hypertension. Blood pressure was quite high yesterday. We have added labetalol 100 mg three times a day which he should continue along with his other antihypertensives. He will follow up in the office with Dr. Anderson for further adjustments. 4. Chronic alcoholic use. I have discussed with the patient at length yesterday and again this morning about need for quitting to drink. He understands the risks to his health and life. DISPOSITION: From renal standpoint, the patient can be discharged to home today and he will follow up with Dr. Anderson in couple of weeks.
--- NOTE | 2017-03-14 18:26 | DS.PDOC ---
Discharge Summary General Date of Admission Feb 21, 2017 at 15:25 Date of Discharge 02/22/17 Primary Care Physician: SANDOR CRUZ DO Attending Physician: ROYAL HERNANDEZ DO Specialist/Consultants Involve: Mike Schaefer MD Discharge Summary Consults: Nephrology Dr. Mike Schaefer Discharge diagnosis: Alcoholic Ketoacidosis High Anion Gap Metabolic Acidosis Lactic Acidosis Leukocytosis Hypokalemia Hypertension Left Ankle Fracture Secondary diagnosis: Chronic Heavy Alcohol Use Mild Chronic Kidney Disease Type 2 Diabetes Diabetic Neuropathy Neck Pain Malignant Melanoma on L Ear status-post removal Hospital course: 66 yo M presented to the [facility] ED on 02/21/17 after he was seen by Dr. Anderson in the Nephrology office and found to have abnormal labs at around 9 AM that morning. Stated he had no symptoms. Labs shown to me by the patient showed: CO2 of 11.4, WBC 13.6, MCV 104.2, a UA: >160 ketones, trace lysed blood, 30 protein , Ur Cr of 121.3, Ur Microalbumin 117.1. Patient denied abdominal pain, vomiting , dizziness, fevers, chills, blurred vision, runny nose, sore throat, cough, edema, dysuria, hematuria, hematochezia upon admission. Admitted to generalized weakness and heartburn which he began to have a couple of hours ago today. Admitted to on and off diarrhea: loose waterry stools. Admitted to nausea and 1 episode of nonbloody but coffee colored emesis. Admitted to loss of appetite since he has been in acute kidney failure he stated. Admitted to 25 pounds weight loss in 6 months which was both unintentional and intentional partially. In addition, admitted that he drank EtOH his whole life, and progressively more and more since he was 18 years old due to addiction. Admitted to a family hx significant for alcoholism. Stated he was drinking more this month but could not quantify exactly how much more for me. Stated he will drink 1/2 liter a day of vodka and has done this this week prior to admission as well as last week. All he had the morning of admission was coffee and no breakfast. Admitted to a L ankle fracture that he has had for a few weeks now which he has cast for. Patient was admitted for alcoholic ketoacidosis, lactic acidosis, and high anion gap metabolic acidosis. He also had very high and elevated blood pressures upon admission. He also has a L distal fibula fracture in a cast. In addition, he had some leukocytosis and an ethyl alcohol level of 0.096. Patient also had low bicarbonate level. Patient was admitted to PCU, given thiamine, folic acid, multivitamin, serax and ativan PRN for EtOH withdrawal/anxiety/ agitation, IV fluids, electrolytes were monitored q4h and repleted as necessary , BP was monitored and controlled with labetalol (as per Nephrology). Dr. Schaefer of Nephrology was consulted for assistance with management of lactic acidosis, low bicarbonate level and sodium bicarbonate drip management, as well as anion gap metabolic acidosis. It was deemed that the lactic acidosis and high anion gap metabolic acidosis was likely due to his heavy EtOH use. Patient was treated with IVF hydration, sodium bicarbonate. For patient's uncontrolled hypertension, patient was treated by Nephrology with labetalol 100 mg TID and his BP was monitored closely. After treatment, patient improved clinically and felt much better. Patient's anion gap had improved back to normal, lactic acid had normalized, the sodium bicarb drip was stopped. Leukocytosis had improved as well. Patient was also counseled on alcohol cessation and verbalized understanding of how this can affect his health. Labs on admission were remarkable for: VBG: pH: 7.248, pCO2: 20.1, pO2: 80.2. ABG: pH: 7.315, pCO2: 19.9, pO2: 88.4, bicarbonate was 14.1. WBC 14.5, MCV 101.6, Anion Gap: 21, BUN 23, Cr 1.15, GFR >60, fasting glucose: 135, HgbA1C: 6.5, serum osmolality: 334, Lactic Acid: 8.7, M.7 Ethyl Alcohol Level: 0.096 Beta-Hydroxybutyrate Level: >46. UA was remarkable for 1+ glucose, 2+ ketones. Random Ur osmolality was: 487. CXR was negative. L Ankle X-ray showed an old fracture of the distal fibula which was unchanged from prior CXR on 01/18/17. Progress note on date of discharge: Subjective: Patient seen and examined at bedside. Denies fevers, chills, headache, lightheadedness, dizziness, chest pain, SOB, nausea, vomiting, diarrhea, abdominal pain, constipation. Is eating and drinking well. Objective: Vitals: Please see below. Physical Exam: General Exam: Awake, Cooperative Adult Male, No Acute Distress HEENT: normocephalic atraumatic Neck Exam: Supple, Chest Exam: Clear to auscultation bilaterally Heart Exam: Rate Normal, Regular Rhythm, Normal S1, Normal S2 Abdomen Exam: Normal bowel sounds, Soft, Nontender, nondistended, no hepatospenomegaly Extremity Exam: LLE in cast, No Clubbing, Cyanosis, Edema in RLE Skin Exam: No rashes or lesions Neuro Exam: No focal neurologic deficits appreciated bilaterally, LLE limited due to distal fibular fracture with leg in cast Psych Exam: Flat affect, Memory Intact, Oriented x 3 Labs: Were remarkable for WBC of 6.8 from 14.5, Hgb of 13.5 from 15.8, MCV of 98.3 from 101.6, Anion Gap of 11 from 21, BUN of 16 from 21, K of 3.3 from 3.9, fasting glucose of 181 from 135, Mg of 2.2 from 2.7, lactic acid of 1.2 from 8.7. Assessment: 66 yo M is presenting for alcoholic ketoacidosis, lactic acidosis, and anion gap metabolic acidosis, and also treated for uncontrolled hypertension. He also has a L distal fibula fracture in a cast. In addition, he had some leukocytosis and an ethyl alcohol level of 0.096. Patient also had low bicarbonate level. Lactic acidosis, metabolic acidosis, and high anion gap has resolved. Patient's hypertension continued but was being controlled by Nephrology. A recommendation was made for patient to follow up with Dr. Portillo at [facility] next week for further treatment of his LLE fracture of the distal fibula. Disposition: Hemodynamically and medically stable. Follow-up: With PCP Dr. Sandor Cruz in 3-5 days [facility] next week With Dr. Anderson on 03/13/17 Activity: As tolerated Diet: Consistent Carbohydrates Medications on discharge: Please see below. Patient was informed to ask PCP about restarting his metformin as FABIAN has resolved. Cc: Dr. Sandor Cruz Time spent on discharge: 35 minutes Vital Signs/I&Os Vital Signs Date Time Temp Pulse Resp B/P (MAP) Pulse Ox O2 Delivery O2 Flow Rate FiO2 02/22/17 08:36 68 150/74 02/22/17 08:00 99.2 20 92 02/22/17 04:00 Room Air I&O- Last 24 Hours up to 6 AM 02/22/17 05:59 Intake Total 3645 ml Balance 3645 ml Laboratory Data Labs 24H Laboratory Tests 2 02/21/17 15:15: Anion Gap 24H, Glomerular Filtration Rate > 60.0, Osmolality 316H, Blood Urea Nitrogen 21H, Creatinine 0.96, Sodium Level 145, Potassium Level 4.3, Chloride Level 111H, Carbon Dioxide Level 10L, Calcium Level 8.3L, Phosphorus Level 3.0, Magnesium Level 2.6H, B-Hydroxybutyrate > 46.00H 02/21/17 15:27: Urine Appearance CLEAR, Urine Color YELLOW, Urine pH 5.0, Urine Specific [place] 1.013, Urine Protein NEGATIVE, Urine Glucose (UA) 1+H, Urine Ketones 2+H , Urine Urobilinogen 0.2, Urine Bilirubin NEGATIVE, Urine Leukocyte Esterase NEGATIVE, Urine Blood NEGATIVE, Urine Nitrite NEGATIVE, Urine WBC (Auto) 1, Urine RBC (Auto) 0, Urine Hyaline Casts (Auto) 0, Urine Bacteria (Auto) NEGATIVE , Urine Squamous Epithelial Cells 0, Urine Sperm (Auto) , Urine Random Osmolality 487L, Urine Amphetamines Screen NEGATIVE, Urine Benzodiazepines Screen NEGATIVE, Urine Opiates Screen NEGATIVE, Urine Methadone Screen NEGATIVE , Urine Barbiturates Screen NEGATIVE, Urine Phencyclidine Screen NEGATIVE, Urine Cocaine Metabolite Screen NEGATIVE, Urine Cannabinoids Screen NEGATIVE 02/21/17 15:46: Blood Gas Bicarbonate Standard 14.1L, Arterial Blood pH 7.315L, Arterial Blood Partial Pressure CO2 19.9*L, Arterial Blood Partial Pressure O2 88.4, Arterial Blood Total CO2 10.5L, Arterial Blood HCO3 9.9L, Arterial Blood Base Excess - 13.7L, Arterial Blood Oxygen Saturation 96.6 02/21/17 17:05: Anion Gap 22H, Glomerular Filtration Rate > 60.0, Blood Urea Nitrogen 22H, Creatinine 0.97, Sodium Level 141, Potassium Level 4.8, Chloride Level 108H, Carbon Dioxide Level 11L, Calcium Level 8.2L, Phosphorus Level 3.2, Magnesium Level 2.6H 02/21/17 18:25: Bedside Glucose (Misc Panel) 198H 02/21/17 19:38: Prothrombin Time 14.2, Prothromb Time International Ratio 1.08, Activated Partial Thromboplast Time 35.7 02/22/17 00:04: Anion Gap 10, Glomerular Filtration Rate > 60.0, Lactic Acid Level 1.2, Blood Urea Nitrogen 20H, Creatinine 1.16, Sodium Level 138, Potassium Level 3.6#, Chloride Level 107, Carbon Dioxide Level 21, Calcium Level 8.1L, Magnesium Level 2.1 02/22/17 04:19: Anion Gap 11, Glomerular Filtration Rate > 60.0, Blood Urea Nitrogen 16, Creatinine 0.96, Sodium Level 143, Potassium Level 3.3L, Chloride Level 108H, Carbon Dioxide Level 24, Calcium Level 7.9L, Magnesium Level 2.2 CBC/BMP Laboratory Tests 02/21/17 15:15 Calcium Level 8.3 L 02/21/17 17:05 Calcium Level 8.2 L 02/22/17 00:04 Calcium Level 8.1 L 02/22/17 04:19 Calcium Level 7.9 L, Red Blood Count 4.10 L, Mean Corpuscular Volume 98.3 H, Mean Corpuscular Hemoglobin 33.1 H, Mean Corpuscular Hemoglobin Concent 33.6, Red Cell Distribution Width 12.8 FSBS Laboratory Tests Test 02/21/17 18:25 Range/Units Bedside Glucose (Misc Panel) 198 80-115 MG/DL Microbiology Microbiology 02/21/17 Blood Culture, Received Pending 02/21/17 Blood Culture, Received Pending Discharge Medications Scheduled Amlodipine Besylate (Amlodipine Besylate) 5 Mg Tab, 5 MG PO DAILY, (Reported) Folic Acid (Folic Acid) 1 Mg Tab, 1 MG PO DAILY, (Reported) Gabapentin (Gabapentin) 400 Mg Cap, 400 MG PO TID, (Reported) Glimepiride (Glimepiride) 1 Mg Tab, 1 MG PO DAILY, (Reported) Magnesium Oxide (Magnesium) 400 Mg Tab, 800 MG PO TID, (Reported) Thiamine HCl (Thiamine) 50 Mg Cap, 50 MG PO DAILY, (Reported) Scheduled PRN Trazodone HCl (Trazodone HCl) 100 Mg Tab, 100 MG PO QHS PRN for SLEEP, (Reported ) Allergies Coded Allergies: No Known Allergies (Unverified , 01/09/17) GME ATTESTATION GME ATTESTATION My preceptor for this patient encounter was Dr. Royal Hernandez, and was physically present in the building during the encounter and was fully available. As needed, all aspects of the patient interview, examination, medical decision making process, and medical care plan development were reviewed and approved by the preceptor. Preceptor is aware and concurs with the plan as stated in the body of this note and will attest to such by his/her cosignature. RORO POOLE OGME-1 Feb 22, 2017 14:08
== END 2017-02-22 11:56 | disposition home or self-care (01) | DRG 641 ==
LOC: M ED 10:47 → M ED INP 15:25 → M PCU 17:59
PROVIDERS: ADMIT Hospitalist; ATTEND Hospitalist
DX: E87.2 Acidosis (principal); E87.6 Hypokalemia; I12.9 Hypertensive chronic kidney disease with stage 1 through stage 4 chronic kidney disease, or unspecified chronic kidney disease; E11.40 Type 2 diabetes mellitus with diabetic neuropathy, unspecified; F17.210 Nicotine dependence, cigarettes, uncomplicated; E11.22 Type 2 diabetes mellitus with diabetic chronic kidney disease; F10.20 Alcohol dependence, uncomplicated; S82.402D Unspecified fracture of shaft of left fibula, subsequent encounter for closed fracture with routine healing; Z79.84 Long term (current) use of oral hypoglycemic drugs; Z79.899 Other long term (current) drug therapy; Z83.3 Family history of diabetes mellitus; N18.2 Chronic kidney disease, stage 2 (mild); X58.XXXD Exposure to other specified factors, subsequent encounter; Y92.9 Unspecified place or not applicable; Y93.9 Activity, unspecified; Y99.9 Unspecified external cause status

== ENCOUNTER → 2017-02-21 | Outpatient (REF) | payer MEDICARE, BC ==
[2017-02-21 19:16] LABS: FERRITIN 76 NG/ML (26-388); PERCENT SATURATION 23.4 % (19.7-50.0); TOTAL IRON BINDING CAPACITY 465 UG/DL (250-450)
[2017-02-21 19:19] LABS: FOLATE > 24.0 NG/ML (>5.4); VITAMIN B12 LEVEL 965 PG/ML (247-911)
== END ==
LOC: M LAB REF 16:02
PROVIDERS: ATTEND Internal Medicine Nephrology
DX: D64.9 Anemia, unspecified (principal)

== ENCOUNTER → 2017-05-24 | Outpatient (REF) | payer MEDICARE, BC ==
[~2017-05-24] MED LIST changes: -THIAMINE 100 MG TAB PO SCH; -THIAMINE HCL 200 MG/2 ML VIAL (J3411) IV SCH
== END ==
LOC: M LAB REF 16:06
PROVIDERS: ATTEND Internal Medicine
DX: E78.5 Hyperlipidemia, unspecified (principal)

== ENCOUNTER 2018-07-27 19:07 | Inpatient (IN) | payer MEDICARE, BC, OTHER ==
[~2018-07-27] VITALS: Ht 180.3 cm; Wt 81.8 kg
[~2018-07-27 19:07] MED LIST changes: -AMLO5TAB2 PO; +AMLO5TAB6 PO; +FOLI1TAB11 PO; -FOLI1TAB4 PO; -GABA-283 PO; +GABA-845 PO; -TRAZ-136 PO; +TRAZ-163 PO
[2018-07-27 19:44] LABS: BASO % 0.2 % (0.0-1.0); EOS # 0.1 10^3/uL (0.0-0.50); EOS % 0.7 % (0.0-3.0); HEMATOCRIT 46.3 % (42.0-52.0); HEMOGLOBIN 15.8 g/dl (13.5-17.5); LYMPH % 15.3 % (24.0-44.0); MEAN CORPUSCULAR HEMOGLOBIN 31.4 pg (27.0-33.0); MEAN CORPUSCULAR HGB CONC 34.1 g/dl (32.0-36.5); MONO % 7.5 % (0.0-5.0); NEUTROPHILS # 9.9 10^3/uL (1.8-7.7); NEUTROPHILS % 75.9 % (36.0-66.0); PLATELET COUNT, AUTOMATED 272 10^3/uL (150-450); RED BLOOD COUNT 5.03 10^6/uL (4.30-6.10)
[2018-07-27] MEDS ORDERED: METOCLOPRAMIDE INJ 10MG/2ML VIAL (J2765) IV ONE (19:45)
[2018-07-27] MEDS ORDERED: NS 1,000 ML IV ONE ×2 (19:45→21:30)
[2018-07-27] MEDS ORDERED: MORPHINE 2 MG/ML 1ML SYRINGE (J2270) IV ONE (19:45)
[2018-07-27 19:49] LABS: INR 1.06
[2018-07-27 19:50] LABS: PARTIAL THROMBOPLASTIN TIME 23.9 SECONDS (25.4-37.6)
[2018-07-27 20:14] LABS: ALT/SGPT 31 U/L (12-78); BLOOD UREA NITROGEN 13 MG/DL (7-18); CALCIUM LEVEL 8.7 MG/DL (8.8-10.2); CARBON DIOXIDE LEVEL 18 MEQ/L (21-32); CHLORIDE LEVEL 104 MEQ/L (98-107); CREATININE FOR GFR 1.11 MG/DL (0.70-1.30); GLOMERULAR FILTRATION RATE > 60.0 (>49); GLUCOSE, FASTING 369 MG/DL (70-100); POTASSIUM SERUM 3.9 MEQ/L (3.5-5.1); SODIUM LEVEL 136 MEQ/L (136-145)
[2018-07-27 20:15] LABS: ALBUMIN 3.4 GM/DL (3.2-5.2); BILIRUBIN,DIRECT 0.2 MG/DL (0.0-0.2); BILIRUBIN,TOTAL 0.6 MG/DL (0.2-1.0); ETHYL ALCOHOL (ETHANOL) < 0.003 % (0.000-0.010); LIPASE 458 U/L (73-393); TOTAL PROTEIN 6.6 GM/DL (6.4-8.2)
[2018-07-27] MEDS ORDERED: MORPHINE 4 MG/ML 1ML VIAL/SYRINGE (J2270) IV ONE (20:15)
[2018-07-27] MEDS ORDERED: ISOVUE-370 76% 100ML VIAL (Q9967) As Ordered ONE (20:23)
--- NOTE | 2018-07-27 21:10 | REPVR ---
EXAM: CT Abdomen and Pelvis With Contrast EXAM DATE/TIME: 07/27/2018 8:34 PM CLINICAL HISTORY: 67 years old, male; Pain; Abdominal pain; Additional info: Severe pain/obstr ? TECHNIQUE: Axial computed tomography images of the abdomen and pelvis with intravenous contrast. All CT scans at this facility use at least one of these dose optimization techniques: automated exposure control; mA and/or kV adjustment per patient size (includes targeted exams where dose is matched to clinical indication); or iterative reconstruction. Coronal and sagittal reformatted images were created and reviewed. CONTRAST: 100 ml of iso 370 administered intravenously. COMPARISON: CT ABD PELVIS W/O CONTRAST 01/09/2017 3:18 PM FINDINGS: Lower thorax: There is mild atelectasis and infiltrates at the right lung base. ABDOMEN: Liver: Uniform enhancement of the liver are. Gallbladder and bile ducts: Normal common bile duct. Pancreas: Normal pancreas. Spleen: Normal spleen. Adrenals: Normal adrenal glands. Kidneys and ureters: Normal kidneys. No evidence of stone in the right or left ureter. Stomach and bowel: There is contrast through the left colon. There is contrast within the right colon and cecum. There is marked thickening of the duodenal bulb with marked irregularity. Bubbles of air/pneumoperitoneum are extending from the region of the pylorus/duodenum into the falciform ligament of the liver. There is free oral contrast extending from the duodenum to the gallbladder fossa. There is free oral contrast in bubbles of air are extending along the falciform ligament. This makes this is very suspicious for perforated ulcer or perforated lesion at the junction of the pylorus and duodenal bulb. There are fluid filled loops of small bowel in the midline probably representing ileus. Appendix: A portion of the appendix can be identified projecting medially from the cecum. PELVIS: Bladder: Normal appearing urinary bladder. Reproductive: Normal size prostate. ABDOMEN and PELVIS: Intraperitoneal space: There is a very large amount of pneumoperitoneum in the anterior abdomen from the level of the diaphragm to the umbilicus. There is a large amount of free fluid along the liver edge and surrounding the gallbladder. There is a moderate to large amount of fluid within the pelvis and also at the right paracolic space. Numerous bubbles of pneumoperitoneum are noted left upper quadrant also. Vasculature: There is opacification of the SMV. There is opacification of the SMA. Lymph nodes: There are small retrocrural lymph nodes. Small lymph nodes are noted. IMPRESSION: 1. Massive pneumoperitoneum from the upper abdomen to the level of the umbilicus. There is large amount of free fluid along the liver and right paracolic space and also into the pelvis. 2. Thickening of the duodenal bulb with bubbles of air and free oral contrast extravasated from this area into the region of the gallbladder fossa and falciform ligament. This is all very suspicious for perforation of the duodenum by ulcer or other lesion. 3. Prominent amount of fluid surrounding the gallbladder. 4. Mild distention of loops of small bowel with secretions and mild thickening of bowel wall probably the result of ileus or enteritis. Findings were discussed with BENITEZ FITCH at 07/27/2018 9:05 PM EST. Electronically signed by: Juan M Goyal On 07/27/2018 21:09:55 PM
[2018-07-27] MEDS ORDERED: metroNIDAZOLE 750 MG in APPROPRIATE DILUENT 1 EA IV ONE (21:15)
[2018-07-27] MEDS ORDERED: CIPROFLOXACIN 400 MG in APPROPRIATE DILUENT 1 EA IV ONE (21:15)
[2018-07-27] MEDS ORDERED: HumuLIN R (REGULAR) INSULIN (NovoLIN R) **100U/ML** PER UNIT IV ONE (21:15)
[2018-07-27] MEDS ORDERED: MORPHINE 10 MG/ML 1ML VIAL (J2270) IV ONE (21:30)
[2018-07-27] MEDS ORDERED: AMLO10TA5 PO (21:39)
[2018-07-27] MEDS ORDERED: BUPIVACAINE/EPIN 0.25% 30 ML VIAL As Ordered ONE (21:41)
[2018-07-27] MEDS ORDERED: DULO1CAP2 PO (21:45)
[2018-07-27] MEDS ORDERED: ASPI1TAB PO (21:45)
[2018-07-27] MEDS ORDERED: FLOM0.4C39 PO (21:45)
[2018-07-27] MEDS ORDERED: ATOR1TAB19 PO (21:45)
[2018-07-27] MEDS ORDERED: FISH7.5C PO (21:45)
[2018-07-27] MEDS ORDERED: MELO15TA28 PO (21:45)
[2018-07-27] MEDS ORDERED: METF500T13 PO (21:45)
[2018-07-27] MEDS ORDERED: VITA10002 PO (21:45)
[2018-07-27] MEDS ORDERED: LEVO25TA5 PO (21:45)
[2018-07-27] MEDS ORDERED: VITMTA PO (21:45)
[2018-07-27] MEDS ORDERED: K-PHTAB2 PO (21:45)
[2018-07-27] MEDS ORDERED: LISI-538 PO (21:45)
[2018-07-27] MEDS ORDERED: FINA5TAB2 PO (21:45)
[2018-07-27] MEDS ORDERED: ACET1TAB55 PO (21:47)
[2018-07-27] MEDS ORDERED: metroNIDAZOLE/NACL 500MG(5MG/ML)100 ML BAG (S0030) As Ordered ONE (23:03)
[2018-07-27] MEDS ORDERED: SUCCINYLCHOLINE 100 MG/5 ML SYRINGE (J0330) As Ordered ONE (23:14)
[2018-07-27] MEDS ORDERED: ePHEDrine SULFATE 25 MG/5 ML(5MG/ML) SYRINGE As Ordered ONE (23:14)
[2018-07-27] MEDS ORDERED: dexameTHASONE 4 MG/ML 1ML VIAL (J1100) As Ordered ONE (23:14)
[2018-07-27] MEDS ORDERED: MIDAZOLAM INJ 2 MG/2 ML VIAL (J2250) As Ordered ONE (23:14)
[2018-07-27] MEDS ORDERED: SUGAMMADEX SODIUM 500 MG/5 ML VIAL (BRIDION) As Ordered ONE (23:14)
[2018-07-27] MEDS ORDERED: LIDOCAINE 2% INJ 100 MG/5 ML SDV (FOR ANES.) As Ordered ONE (23:14)
[2018-07-27] MEDS ORDERED: ONDANSETRON 4MG/2ML VIAL (J2405) As Ordered ONE (23:14)
[2018-07-27] MEDS ORDERED: ROCURONIUM BROMIDE 50 MG/5 ML VIAL As Ordered ONE (23:14)
[2018-07-27] MEDS ORDERED: PHENYLEPHRINE INJ 10MG/ML VIAL (J2370) As Ordered ONE (23:14)
[2018-07-27] MEDS ORDERED: fentaNYL 250 MCG/5 ML INJECTION (J3010) As Ordered ONE (23:14)
[2018-07-27] MEDS ORDERED: PROPOFOL 200 MG/20 ML VIAL As Ordered ONE (23:14)
[2018-07-27] MEDS ORDERED: DEXTROSE 50% 50 ML SYRINGE IV PRN (23:45)
[2018-07-27] MEDS ORDERED: LR 1,000 ML IV SCH (23:45)
[2018-07-27] MEDS ORDERED: ONDANSETRON 4MG/2ML VIAL (J2405) IV PRN ×2 (23:45)
[2018-07-27] MEDS ORDERED: GLUCOSE 4 GM CHEW TABLET PO PRN (23:45)
[2018-07-27] MEDS ORDERED: fentaNYL 100 MCG/2 ML INJECTION (J3010) IV PRN (23:45)
[2018-07-27] MEDS ORDERED: GLUCAGON FOR INJ 1 MG VIAL (J1610) SC PRN (23:45)
[2018-07-28] VITALS (9 sets, daily range): BP systolic 114–152; BP diastolic 65–86
[2018-07-28] MEDS: NS 1,000 ML IV SCH ×3 (00:35→16:27)
[2018-07-28] MEDS: HEPARIN SOD (PORCINE) 5000 UNITS/ML VIAL SC SCH ×2 (01:05→13:00)
[2018-07-28] MEDS: PIPERACILLIN/TAZOBACTAM SOD 3.375 GM in D5W MINI-BAG PLUS 50 ML IV SCH ×4 (01:06→18:00)
[2018-07-28] MEDS: HumaLOG INSULIN (NovoLOG) PER UNIT SC SCH ×4 (01:06→18:39)
[2018-07-28] MEDS ORDERED: FLUCONAZOLE 200 MG in APPROPRIATE DILUENT 1 EA IV ONE (02:00)
[2018-07-28] MEDS: KETOROLAC 30 MG/ML VIAL (J1885) IV PRN ×2 (04:38→14:31)
[2018-07-28 06:04] LABS: HEMATOCRIT 41.7 % (42.0-52.0); HEMOGLOBIN 14.5 g/dl (13.5-17.5); MEAN CORPUSCULAR HEMOGLOBIN 31.7 pg (27.0-33.0); MEAN CORPUSCULAR HGB CONC 34.8 g/dl (32.0-36.5); PLATELET COUNT, AUTOMATED 213 10^3/uL (150-450); RED BLOOD COUNT 4.58 10^6/uL (4.30-6.10); WHITE BLOOD COUNT 10.5 10^3/uL (4.0-10.0)
[2018-07-28 06:40] LABS: ALBUMIN 2.6 GM/DL (3.2-5.2); ALT/SGPT 26 U/L (12-78); BILIRUBIN,TOTAL 0.8 MG/DL (0.2-1.0); BLOOD UREA NITROGEN 18 MG/DL (7-18); CARBON DIOXIDE LEVEL 18 MEQ/L (21-32); CHLORIDE LEVEL 109 MEQ/L (98-107); CREATININE FOR GFR 1.16 MG/DL (0.70-1.30); GLOMERULAR FILTRATION RATE > 60.0 (>49); GLUCOSE, FASTING 221 MG/DL (70-100); POTASSIUM SERUM 4.3 MEQ/L (3.5-5.1); SODIUM LEVEL 138 MEQ/L (136-145); TOTAL PROTEIN 5.9 GM/DL (6.4-8.2)
[2018-07-28] MEDS: LISINOPRIL 20 MG TAB PO SCH (09:39)
[2018-07-28] MEDS: amLODIPine 10 MG TAB PO SCH (09:39)
[2018-07-28] MEDS: LEVOTHYROXINE 25MCG TABLET (0.025MG) PO SCH (09:39)
[2018-07-28] MEDS: TAMSULOSIN 0.4 MG CAP PO SCH (09:39)
[2018-07-28] MEDS: PANTOPRAZOLE 40MG INJ (PROTONIX) (C9113) IV SCH (09:39)
[2018-07-28] MEDS: MAG SULF 1GM/100ML (MAG RUN) 1 GM in APPROPRIATE DILUENT 1 EA IV SCH ×4 (09:40→14:04)
[2018-07-28] MEDS: metFORMIN (GLUCOPHAGE) 500 MG TAB PO SCH ×2 (09:40→20:38)
[2018-07-28] MEDS: GLIMEPIRIDE 1 MG TABLET PO SCH (09:40)
[2018-07-28] MEDS ORDERED: NS 1,000 ML IV ONE (10:00)
--- NOTE | 2018-07-28 10:07 | IPNPDOC ---
Text Note Date of Service The patient was seen on 07/28/18. NOTE No acute events overnight. Denies any problems with nausea, emesis, fevers, or pains. He is not ambulating yet, and is anxious to go home. VSSAF NAD abd - soft, TTP appropriate, drain with cloudy serous fluid in it, incisions c/d/i labs - below A) 67y/o male s/p lap repair of perforated duodenal ulcer P) NGT to LIS sips and chips abx heparin Q6 finger sticks ambulate plan on d/c NGT in am and start clears Jonah Bryden DO VS,Fishbone, I+O VS, Fishbone, I+O Laboratory Tests 07/27/18 19:27 Red Blood Count 5.03, Mean Corpuscular Volume 92.0, Mean Corpuscular Hemoglobin 31.4, Mean Corpuscular Hemoglobin Concent 34.1, Red Cell Distribution Width 13.8, Neutrophils (%) (Auto) 75.9 H, Lymphocytes (%) (Auto) 15.3 L, Monocytes (%) (Auto) 7.5 H, Eosinophils (%) (Auto) 0.7, Basophils (%) (Auto) 0.2, Neutrophils # (Auto) 9.9 H, Lymphocytes # (Auto) 2.0, Monocytes # (Auto) 1.0 H, Eosinophils # (Auto) 0.1, Basophils # (Auto) 0.0 07/28/18 05:40 Red Blood Count 4.58, Mean Corpuscular Volume 91.0, Mean Corpuscular Hemoglobin 31.7, Mean Corpuscular Hemoglobin Concent 34.8, Red Cell Distribution Width 13.9 , Calcium Level 8.0 L, Aspartate Amino Transf (AST/SGOT) 17, Alanine Aminotransferase (ALT/SGPT) 26, Alkaline Phosphatase 81, Total Bilirubin 0.8, Total Protein 5.9 L, Albumin 2.6 #L Vital Signs Date Time Temp Pulse Resp B/P (MAP) Pulse Ox O2 Delivery O2 Flow Rate FiO2 07/28/18 09:39 126/72 07/28/18 09:39 82 07/28/18 05:30 99.0 18 96 Room Air 07/28/18 03:30 1.0 I&O- Last 24 Hours up to 6 AM 07/28/18 06:00 Intake Total 2500 ml Output Total 850 ml Balance 1650 ml JOSHUA CHAU DO Jul 28, 2018 10:07
[2018-07-28] MEDS: MORPHINE 4 MG/ML 1ML VIAL/SYRINGE (J2270) IV PRN ×3 (13:04→22:24)
--- NOTE | 2018-07-29 00:08 | HPE ---
DATE OF ADMISSION: 07/28/2018 CHIEF COMPLAINT: Abdominal pain. HISTORY OF PRESENT ILLNESS: The patient is a 67-year-old male who presents with sudden onset of epigastric pain radiating to his back. This happened suddenly around 5:00 p.m. today. He was on the phone talking to his son when it occurred. He has never had any problems like this in the past. He does have a history of alcoholism, recently finished rehab about a month ago. He does smoke a pack a day. Denies any excessive [id number] medication usage. No other risk factors that he is aware of other than possibly taking his morning medications on an empty stomach. He has had some nausea and discomfort in the past few days that was relieved with Pepto-Bismol, but other than that, no other complaints recently. No recent trauma to the abdomen. No recent changes in medications or diet. Denies any problems with acid reflux or heartburn. PAST MEDICAL HISTORY: Positive hypertension, alcoholism, diabetes, BPH, diabetic neuropathy. PAST SURGICAL HISTORY: Tonsillectomy, eye surgery, left ear surgery. ALLERGIES: None. HOME MEDICATIONS: Please see med rec. FAMILY HISTORY: Noncontributory. REVIEW OF SYSTEMS: Pertinent positives and negatives as stated in the history of the present illness. PHYSICAL EXAMINATION: General: Alert and oriented times three. No acute distress. Vital Signs: Temperature 97.3, pulse 64, respirations 19, blood pressure 120/58, pulse oximetry 96% on room air. HEENT: Pupils equally round and react to light accommodation. Heart: S1, S2, regular rate and rhtyhm. Lungs: Clear to auscultation bilaterally. Abdomen: Soft, tender to palpation epigastric, localized guarding. No generalized peritonitis. Extremities: No clubbing, cyanosis or edema. LABORATORY DATA: White count 13, hemoglobin 15.8, platelets 272, glucose 369, lactic acid 2.4, lipase 458. IMAGING: CT abdomen and pelvis was obtained showing a large amount of pneumoperitoneum in the anterior abdomen from the level of the diaphragm to the umbilicus, large amount of free fluid along the liver edge surrounding the gallbladder, large amount of fluid within the pelvis and also the right paracolic space, numerous bubbles of pneumoperitoneum are noted left upper quadrant. There is thickening of the duodenal bulb with bubbles of air and free oral contrast extravasating from this area into the region of gallbladder fossa and falciform ligament, suspicious for duodenal ulcer or other lesion. ASSESSMENT/PLAN: The patient is a 67-year-old male with signs and symptoms consistent with perforated viscus, likely secondary to duodenal ulcer perforation. Recommendation is to proceed with exploratory laparoscopy, possible laparotomy with repair of the perforation. Risks and benefits of the procedure not limited to but including bleeding, infection, hernia formation, damage to surrounding structures, and need for further surgery were discussed in detail with the patient. Informed consent was obtained and procedure was planned. He will undergo the procedure emergently this evening. Postoperatively he will be kept in hospital for a minimum of 48-72 hours, possibly up to 7 days or longer if a laparotomy is needed. Give him IV fluids, antibiotics, keep him nothing by mouth for the first 24 hours, and slowly advance a diet beyond there.
[2018-07-29] MEDS: HEPARIN SOD (PORCINE) 5000 UNITS/ML VIAL SC SCH ×3 (00:25→23:03)
[2018-07-29] MEDS: KETOROLAC 30 MG/ML VIAL (J1885) IV PRN ×3 (00:26→23:14)
[2018-07-29] MEDS: PIPERACILLIN/TAZOBACTAM SOD 3.375 GM in D5W MINI-BAG PLUS 50 ML IV SCH ×5 (00:26→23:03)
[2018-07-29] MEDS: FLUCONAZOLE 100 MG in APPROPRIATE DILUENT 1 EA IV SCH (01:38)
[2018-07-29 06:00] VITALS: BP 87/50
[2018-07-29] MEDS: NS 1,000 ML IV SCH ×3 (06:00→15:09)
[2018-07-29] MEDS: MORPHINE 4 MG/ML 1ML VIAL/SYRINGE (J2270) IV PRN (06:01)
[2018-07-29 06:17] LABS: HEMATOCRIT 38.2 % (42.0-52.0); HEMOGLOBIN 12.8 g/dl (13.5-17.5); MEAN CORPUSCULAR HEMOGLOBIN 31.1 pg (27.0-33.0); MEAN CORPUSCULAR HGB CONC 33.5 g/dl (32.0-36.5); MEAN CORPUSCULAR VOLUME 92.7 fl (80.0-96.0); PLATELET COUNT, AUTOMATED 200 10^3/uL (150-450); RED BLOOD COUNT 4.12 10^6/uL (4.30-6.10); WHITE BLOOD COUNT 16.7 10^3/uL (4.0-10.0)
[2018-07-29] MEDS: HumaLOG INSULIN (NovoLOG) PER UNIT SC SCH ×4 (06:25→17:43)
[2018-07-29 06:40] LABS: ALBUMIN 2.3 GM/DL (3.2-5.2); ALT/SGPT 17 U/L (12-78); BILIRUBIN,TOTAL 0.6 MG/DL (0.2-1.0); BLOOD UREA NITROGEN 25 MG/DL (7-18); CALCIUM LEVEL 7.9 MG/DL (8.8-10.2); CARBON DIOXIDE LEVEL 19 MEQ/L (21-32); CHLORIDE LEVEL 110 MEQ/L (98-107); CREATININE FOR GFR 0.94 MG/DL (0.70-1.30); GLOMERULAR FILTRATION RATE > 60.0 (>49); GLUCOSE, FASTING 113 MG/DL (70-100); MAGNESIUM LEVEL 2.2 MG/DL (1.8-2.4); POTASSIUM SERUM 4.1 MEQ/L (3.5-5.1); SODIUM LEVEL 138 MEQ/L (136-145); TOTAL PROTEIN 5.6 GM/DL (6.4-8.2)
[2018-07-29 07:38] VITALS: BP 128/78
--- NOTE | 2018-07-29 09:26 | RO ---
DATE OF PROCEDURE: 07/28/2018 PREOPERATIVE DIAGNOSIS: Perforated viscus. POSTPROCEDURE DIAGNOSIS: Perforated viscus. FINDINGS: Perforated duodenal ulcer. PROCEDURE: Exploratory laparoscopy with abdominal washout, oversewing of duodenal ulcer and Alexis patch placement. SURGEON: Dr. Sinclair WAGON DRILL OPERATOR: Dr. Myles, assisted with visualization and retraction. ANESTHESIA: General. ESTIMATED BLOOD LOSS: 5 mL. COMPLICATIONS: None. INDICATIONS FOR PROCEDURE: The patient is 67-year-old male who presents with epigastric abdominal pain and found to have perforated viscus on CT scan, likely upper abdomen. Recommendation was to proceed with exploratory laparoscopy, possible laparotomy. Risks and benefits of the procedure, not limited but including bleeding, infection, hernia formation, damage to surrounding structures, need for further surgery were discussed in detail with the patient, informed consent was obtained, and procedure was planned. DESCRIPTION OF PROCEDURE: The patient brought back to operating room #3. After sufficient sedation, the abdomen was sterilely prepped and draped. Next, a time-out was done to confirm proper patient and proper procedure. Following that, an incision was made in the left lower quadrant, Veress needle was inserted and the abdomen was insufflated to 50 mmHg. Next, Veress needle was removed. A 5 mm Optiview port was used to gain access to the abdomen. Once the abdomen was entered, there were gastric contents identified throughout the entire abdomen with inflammation over the omentum and the peritoneal surface. Another 5 mm port was placed supraumbilically in the midline and another 5 mm port in the right upper quadrant. The liver was then elevated up revealing a pocket of fluid in the gallbladder fossa. Adjacent to the gallbladder fossa was some omentum adhered down over top of the duodenum. After carefully teasing that out of the way, it revealed approximately a 5 mm opening in the superior surface of the second portion of duodenum. There was active extravasation of contents from this area. This whole area was irrigated. #3-0 Vicryl suture was used to place two interrupted sutures to reapproximate the ulcer. The tails were left long and omental patch was placed over top of this and sutured and tied in place using the tails from the suture. Once that was completed, the abdomen was irrigated copiously with a liter of fluid. Once that was completed, a 19-Kyrgy[place] Yash drain was placed over top of the omental patch and brought out through the right side port site, sutured in place with #2-0 silk suture. The abdomen was desufflated. Skin incisions closed with #4-0 Vicryl subcuticular suture. The abdomen was cleaned and dried. Steri-Strips, 4x4 and tape were applied, thus ending procedure.
[2018-07-29] MEDS: PANTOPRAZOLE 40MG INJ (PROTONIX) (C9113) IV SCH (09:53)
[2018-07-29] MEDS: metFORMIN (GLUCOPHAGE) 500 MG TAB PO SCH (09:54)
[2018-07-29] MEDS: LISINOPRIL 20 MG TAB PO SCH (09:54)
[2018-07-29] MEDS: LEVOTHYROXINE 25MCG TABLET (0.025MG) PO SCH (09:54)
[2018-07-29] MEDS: TAMSULOSIN 0.4 MG CAP PO SCH (09:54)
[2018-07-29] MEDS: amLODIPine 10 MG TAB PO SCH (09:54)
[2018-07-29] MEDS: GLIMEPIRIDE 1 MG TABLET PO SCH (09:54)
--- NOTE | 2018-07-29 10:08 | IPNPDOC ---
Text Note Date of Service The patient was seen on 07/29/18. NOTE No acute events overnight. Denies any problems with nausea, emesis, fevers, or pains. He is not ambulating much, and is anxious to go home today. Drain - 790cc/24hours VSSAF NAD abd - soft, TTP appropriate, drain with cloudy serous fluid in it, incisions c/d/i labs - below WBC - 10.5>16.7 A) 67y/o male s/p lap repair of perforated duodenal ulcer P) dc NGT sips and chips abx heparin Q6 finger sticks ambulate Jonah Sinclair DO VS,Fishbone, I+O VS, Fishbone, I+O Laboratory Tests 07/29/18 05:44 Red Blood Count 4.12 L, Mean Corpuscular Volume 92.7, Mean Corpuscular Hemoglobin 31.1, Mean Corpuscular Hemoglobin Concent 33.5, Red Cell Distribution Width 14.2, Calcium Level 7.9 L, Aspartate Amino Transf (AST/SGOT) 15, Alanine Aminotransferase (ALT/SGPT) 17, Alkaline Phosphatase 86, Total Bilirubin 0.6, Total Protein 5.6 L, Albumin 2.3 L Vital Signs Date Time Temp Pulse Resp B/P (MAP) Pulse Ox O2 Delivery O2 Flow Rate FiO2 07/29/18 09:54 128/78 07/29/18 09:54 67 07/29/18 06:11 15 07/29/18 06:00 97.7 94 07/28/18 18:00 Room Air 07/28/18 03:30 1.0 I&O- Last 24 Hours up to 6 AM 07/29/18 06:00 Intake Total 2690 ml Output Total 970 ml Balance 1720 ml JOSHUA SINCLAIR DO Jul 29, 2018 10:08
[2018-07-29] MEDS: DULoxetine 30 MG CAP (CYMBALTA) PO SCH (15:09)
[2018-07-29] MEDS: GABAPENTIN 400 MG CAP PO SCH ×2 (15:09→23:03)
[2018-07-29 22:00] VITALS: BP 134/64
[2018-07-29] MEDS: D5W/LR 1,000 ML IV SCH (23:03)
[2018-07-30 02:00] VITALS: BP 132/63
[2018-07-30] MEDS: HumaLOG INSULIN (NovoLOG) PER UNIT SC SCH ×4 (02:16→18:00)
[2018-07-30] MEDS: FLUCONAZOLE 100 MG in APPROPRIATE DILUENT 1 EA IV SCH (02:17)
[2018-07-30] MEDS: D5W/LR 1,000 ML IV SCH ×2 (05:37→13:51)
[2018-07-30] MEDS: KETOROLAC 30 MG/ML VIAL (J1885) IV PRN (05:38)
[2018-07-30] MEDS: PIPERACILLIN/TAZOBACTAM SOD 3.375 GM in D5W MINI-BAG PLUS 50 ML IV SCH ×3 (05:38→16:37)
[2018-07-30 06:00] VITALS: BP 145/79
[2018-07-30 06:44] LABS: HEMATOCRIT 36.3 % (42.0-52.0); HEMOGLOBIN 12.2 g/dl (13.5-17.5); MEAN CORPUSCULAR HEMOGLOBIN 31.1 pg (27.0-33.0); MEAN CORPUSCULAR HGB CONC 33.6 g/dl (32.0-36.5); MEAN CORPUSCULAR VOLUME 92.6 fl (80.0-96.0); PLATELET COUNT, AUTOMATED 188 10^3/uL (150-450); RED BLOOD COUNT 3.92 10^6/uL (4.30-6.10); WHITE BLOOD COUNT 14.7 10^3/uL (4.0-10.0)
[2018-07-30 06:53] LABS: ALBUMIN 2.2 GM/DL (3.2-5.2); ALT/SGPT 15 U/L (12-78); BILIRUBIN,TOTAL 0.6 MG/DL (0.2-1.0); BLOOD UREA NITROGEN 18 MG/DL (7-18); CALCIUM LEVEL 8.2 MG/DL (8.8-10.2); CARBON DIOXIDE LEVEL 19 MEQ/L (21-32); CHLORIDE LEVEL 109 MEQ/L (98-107); CREATININE FOR GFR 0.77 MG/DL (0.70-1.30); GLOMERULAR FILTRATION RATE > 60.0 (>49); GLUCOSE, FASTING 119 MG/DL (70-100); MAGNESIUM LEVEL 1.5 MG/DL (1.8-2.4); POTASSIUM SERUM 3.6 MEQ/L (3.5-5.1); SODIUM LEVEL 138 MEQ/L (136-145); TOTAL PROTEIN 5.6 GM/DL (6.4-8.2)
[2018-07-30] MEDS ORDERED: MAG SULF 1GM/100ML (MAG RUN) 1 GM in APPROPRIATE DILUENT 1 EA IV ONE (07:15)
--- NOTE | 2018-07-30 07:54 | IPNPDOC ---
Text Note Date of Service The patient was seen on 07/30/18. NOTE No acute events overnight. Denies any problems with nausea, emesis, fevers, or pains. He made it into the graff last night and was ambulating well. He feels much improved today. No nausea or emesis without the NGT in, and he had a BM. Drain - 250cc/24hours VSSAF NAD abd - soft, TTP appropriate, drain with cloudy serous fluid in it, incisions c/d/i labs - below WBC - 10.5>16.7>14 A) 67y/o male s/p lap repair of perforated duodenal ulcer P)sips and chips abx heparin Q6 finger sticks ambulate ck UGI this am, and if no extravasation of contrast I will start on a diet today, and plan for d/c home tomorrow. Jonah Sinclair DO VS,Fishgabriel, I+O VS, Fishbone, I+O Laboratory Tests 07/30/18 05:51 Red Blood Count 3.92 L, Mean Corpuscular Volume 92.6, Mean Corpuscular Hemoglobin 31.1, Mean Corpuscular Hemoglobin Concent 33.6, Red Cell Distribution Width 13.9, Calcium Level 8.2 L, Aspartate Amino Transf (AST/SGOT) 13, Alanine Aminotransferase (ALT/SGPT) 15, Alkaline Phosphatase 71, Total Bilirubin 0.6, Total Protein 5.6 L, Albumin 2.2 L Vital Signs Date Time Temp Pulse Resp B/P (MAP) Pulse Ox O2 Delivery O2 Flow Rate FiO2 07/30/18 06:00 97.0 76 18 145/79 (101) 95 Room Air 07/28/18 03:30 1.0 I&O- Last 24 Hours up to 6 AM 07/30/18 06:00 Intake Total 2250 ml Output Total 350 ml Balance 1900 ml JOSHUA SINCLAIR DO Jul 30, 2018 07:54
[2018-07-30] MEDS: LEVOTHYROXINE 25MCG TABLET (0.025MG) PO SCH (09:47)
[2018-07-30] MEDS: LISINOPRIL 20 MG TAB PO SCH (09:47)
[2018-07-30] MEDS: TAMSULOSIN 0.4 MG CAP PO SCH (09:47)
[2018-07-30] MEDS: DULoxetine 30 MG CAP (CYMBALTA) PO SCH (09:47)
[2018-07-30] MEDS: GABAPENTIN 400 MG CAP PO SCH ×3 (09:48→22:18)
[2018-07-30] MEDS: GLIMEPIRIDE 1 MG TABLET PO SCH (09:48)
[2018-07-30] MEDS: PANTOPRAZOLE 40MG INJ (PROTONIX) (C9113) IV SCH (09:48)
[2018-07-30] MEDS: amLODIPine 10 MG TAB PO SCH (09:48)
[2018-07-30] MEDS ORDERED: E-Z-PAQUE 96% w/w SUSP 176GM BTL As Ordered ONE (10:36)
[2018-07-30] MEDS ORDERED: E-Z-GAS II EFFERVESCENT PACKET (SODIUM BICARB./CITRIC ACID/SIMETHICONE) As Ordered ONE (10:36)
[2018-07-30] MEDS ORDERED: E-Z-HD 98% w/w 340GM SUSP BTL As Ordered ONE (10:37)
[2018-07-30] MEDS ORDERED: ISOVUE-300 61% 50ML VIAL (Q9967) As Ordered ONE (10:53)
[2018-07-30] MEDS: HEPARIN SOD (PORCINE) 5000 UNITS/ML VIAL SC SCH (12:43)
[2018-07-30 14:00] VITALS: BP 128/73
[2018-07-30] MEDS: SUCRALFATE 1 GM TAB PO SCH ×3 (14:07→22:18)
--- NOTE | 2018-07-30 17:21 | REP ---
UPPER GI SINGLE CONTRAST The procedure was performed under the direct supervision of Dr. Koch. The images were reviewed with Dr. Koch. The news broadcaster film shows no organomegaly or pathological masses. There is a surgical drain seen in the right abdomen. The 50 50 solution of Isovue 300 and water was administered. The oral and pharyngeal stages of deglutition are unremarkable. Esophageal transport is prompt and efficient. The contrast fills the stomach and empties through the duodenum without delay. The stomach is grossly normal. There are thickened folds in the duodenum. There is no evidence of extravasation. There is no evidence of stricture or obstruction. Impression: There are thickened folds in the duodenum. There is no evidence of extravasation. There is no evidence of stricture or obstruction. 1.2 minutes of fluoroscopy time was utilized for this procedure. Reviewed by HARSHAL Ramsay 07/30/2018 02:15 P Electronically Signed by Jose Koch MD 07/30/2018 05:12 P
[2018-07-30 22:00] VITALS: BP 136/82
[2018-07-31] MEDS: HEPARIN SOD (PORCINE) 5000 UNITS/ML VIAL SC SCH (00:38)
[2018-07-31] MEDS: D5W/LR 1,000 ML IV SCH (00:39)
[2018-07-31] MEDS: HumaLOG INSULIN (NovoLOG) PER UNIT SC SCH ×2 (00:39→06:25)
[2018-07-31] MEDS: PIPERACILLIN/TAZOBACTAM SOD 3.375 GM in D5W MINI-BAG PLUS 50 ML IV SCH ×2 (00:39→06:20)
[2018-07-31] MEDS: FLUCONAZOLE 100 MG in APPROPRIATE DILUENT 1 EA IV SCH (01:41)
[2018-07-31 02:00] VITALS: BP 136/65
[2018-07-31 06:00] VITALS: BP 137/71
[2018-07-31 06:12] LABS: HEMATOCRIT 36.2 % (42.0-52.0); HEMOGLOBIN 12.2 g/dl (13.5-17.5); MEAN CORPUSCULAR HEMOGLOBIN 30.7 pg (27.0-33.0); MEAN CORPUSCULAR HGB CONC 33.7 g/dl (32.0-36.5); PLATELET COUNT, AUTOMATED 224 10^3/uL (150-450); RED BLOOD COUNT 3.98 10^6/uL (4.30-6.10); WHITE BLOOD COUNT 12.8 10^3/uL (4.0-10.0)
[2018-07-31] MEDS: KETOROLAC 30 MG/ML VIAL (J1885) IV PRN (06:20)
[2018-07-31 06:37] LABS: ALBUMIN 2.1 GM/DL (3.2-5.2); ALT/SGPT 13 U/L (12-78); BILIRUBIN,TOTAL 0.7 MG/DL (0.2-1.0); BLOOD UREA NITROGEN 8 MG/DL (7-18); CALCIUM LEVEL 8.1 MG/DL (8.8-10.2); CARBON DIOXIDE LEVEL 21 MEQ/L (21-32); CHLORIDE LEVEL 105 MEQ/L (98-107); CREATININE FOR GFR 0.68 MG/DL (0.70-1.30); GLOMERULAR FILTRATION RATE > 60.0 (>49); GLUCOSE, FASTING 159 MG/DL (70-100); MAGNESIUM LEVEL 1.5 MG/DL (1.8-2.4); POTASSIUM SERUM 3.4 MEQ/L (3.5-5.1); SODIUM LEVEL 138 MEQ/L (136-145); TOTAL PROTEIN 5.5 GM/DL (6.4-8.2)
[2018-07-31] MEDS ORDERED: SUCR1TA PO (08:37)
[2018-07-31] MEDS ORDERED: FLUC100T PO (08:37)
[2018-07-31] MEDS ORDERED: OMEP40CA2 PO (08:37)
[2018-07-31] MEDS ORDERED: HYDR-3713 PO (08:37)
[2018-07-31] MEDS ORDERED: AMOX875T2 PO (08:37)
[2018-07-31] MEDS: GLIMEPIRIDE 1 MG TABLET PO SCH (09:35)
[2018-07-31] MEDS: TAMSULOSIN 0.4 MG CAP PO SCH (09:35)
[2018-07-31] MEDS: SUCRALFATE 1 GM TAB PO SCH (09:35)
[2018-07-31] MEDS: DULoxetine 30 MG CAP (CYMBALTA) PO SCH (09:36)
[2018-07-31] MEDS: LISINOPRIL 20 MG TAB PO SCH (09:36)
[2018-07-31] MEDS: GABAPENTIN 400 MG CAP PO SCH (09:36)
[2018-07-31 09:37] VITALS: BP 137/71
[2018-07-31] MEDS: LEVOTHYROXINE 25MCG TABLET (0.025MG) PO SCH (09:37)
[2018-07-31] MEDS: PANTOPRAZOLE 40MG INJ (PROTONIX) (C9113) IV SCH (09:37)
[2018-07-31] MEDS: amLODIPine 10 MG TAB PO SCH (09:37)
--- NOTE | 2018-07-31 13:51 | DSES ---
DATE OF ADMISSION: 07/28/2018 DATE OF DISCHARGE: 07/31/2018 ADMISSION DIAGNOSIS: Perforated duodenal ulcer. DISCHARGE DIAGNOSIS: Perforated duodenal ulcer. HOSPITAL COURSE: The patient was admitted on the h with signs of a perforated duodenal ulcer. He was brought urgently to the operating room for a laparoscopic repair. Postoperatively, he had an NG tube kept in place and a drain in the gallbladder fossa next to the repair and ulcer site, and a Calderón catheter in place. Postoperative day #1, the Calderón was removed due to good urine output. The NG tube was kept in place postoperative day #1 and the drain had minimal output. His labs were improving. He had minimal pain. NG output was minimal. He was able to have ice and water. Postoperative day #2, the NG tube was removed. He was put on a clear liquid diet. He tolerated that well without any signs of increasing output from his Yash drain. Postoperative day #3, he continued to do well. He had an upper GI completed which showed that there was some inflammation of the duodenum, but no signs of any stricture, obstruction or perforation. Because of that, we advanced him to a full liquid diet. He has continued to tolerate that well with no signs of any complications. His drain output has been minimal and it is all serous. No change in color with diet. No change in pain. His labs are continuing to improve. PLAN: To discharge home today. Give him some pain meds. Give him some omeprazole and Carafate to take for a couple weeks. Also have him stop his Mobic. I educated him on the importance of taking the proton pump inhibitor (PPI) in the morning before any of his other medications and also not to take his medications on an empty stomach. He will follow up me in the office next Saturday. We will remove his abdominal drain then. If he shows any signs of increased in output from the drain between now and then or change in the color, then I have advised him to stop eating completely and call me right away. All of his questions are answered. He will follow up me in the office next Saturday. edited: 08/01/2018 0734 dagoberto LOZANO
== END 2018-07-31 11:10 | disposition home or self-care (01) | DRG 331 ==
LOC: M ED 19:07 → M SDC 21:26 → M MS5PR 07-28 00:30 → M SDC 07-28 02:50 → M MS5PR 07-28 11:15
PROVIDERS: ADMIT Surgery; ATTEND Surgery
PROC: 0DU Gastrointestinal System, Supplement (ICD-10-PCS; principal; 2018-07-27 21:16)
DX: K26.5 Chronic or unspecified duodenal ulcer with perforation (principal); I10 Essential (primary) hypertension; F10.20 Alcohol dependence, uncomplicated; E11.40 Type 2 diabetes mellitus with diabetic neuropathy, unspecified; N40.0 Benign prostatic hyperplasia without lower urinary tract symptoms

== ENCOUNTER 2018-12-31 10:00 | Inpatient (IN) | payer MEDICARE, BC, OTHER ==
[~2018-12-31] VITALS: Ht 180.3 cm; Wt 89.8 kg
[~2018-12-31 10:00] MED LIST changes: +ACET1TAB55 PO; +AMLO10TA5 PO; +AMOX875T2 PO; +ASPI81TA26 PO; +ATOR1TAB19 PO; +DULO1CAP2 PO; +FINA5TAB2 PO; +FISH7.5C PO; +FLOM0.4C39 PO; +FLUC100T PO; +HYDR-3713 PO; +K-PHTAB2 PO; +LEVO25TA5 PO; +LISI-538 PO; -MAGN1TAB25 PO; +MAGN1TAB26 PO; +MELO15TA28 PO; +OMEP40CA2 PO; +SUCR1TA PO; +VITA10002 PO; +VITMTA PO
[2018-12-31] MEDS ORDERED: FISH1000 PO (10:56)
[2018-12-31] MEDS ORDERED: ACAM0.05 PO (10:56)
--- NOTE | 2018-12-31 11:19 | REP ---
Clinical: Trauma. Comparison: None . Findings: Age-related atrophy and microvascular ischemic changes are appreciated. The ventricles and sulci are symmetric. White-white differentiation is maintained. There is no evidence for acute intracranial hemorrhage, mass/mass effect, pathology or infarction. No extra-axial fluid collection. Calvarium is intact. Mucosal thickening and fluid in the bilateral maxillary sinuses nonspecific. Impression: Age related atrophy and microvascular ischemic changes. No acute intracranial hemorrhage, infarction, or mass/mass effect. Maxillary sinus disease and fluid nonspecific. Electronically Signed by Richard Jdud MD 12/31/2018 11:10 A
--- NOTE | 2018-12-31 11:20 | REP ---
Clinical: Trauma. Technique: Axial noncontrast images from the skull base to the thoracic inlet with coronal and sagittal re-formations. Findings: Alignment and lordosis maintained. Vertebral bodies are intact. There is no evidence for acute fracture / compression injury or subluxation. Minimal generalized age-related changes noted. Spinal canal is patent. Posterior elements and spinous processes are intact. Paravertebral soft tissues are normal. Impression: Age-appropriate cervical spine CT. No evidence for acute trauma/injury or pathology. Electronically Signed by Richard Judd MD 12/31/2018 11:12 A
--- NOTE | 2018-12-31 11:24 | REP ---
Clinical: Syncope . Comparison: 02/21/2017 . Technique: PA and lateral. Findings: The mediastinum and cardiac silhouette are normal. The lung bangura demonstrate mild chronic interstitial changes without acute consolidation, effusion, or pneumothorax. The skeletal structures are intact and normal. Impression: 1. No acute cardiopulmonary process. Electronically Signed by Richard Judd MD 12/31/2018 11:15 A
[2018-12-31 11:45] LABS: BASO % 0.1 % (0.0-1.0); EOS % 0.1 % (0.0-3.0); HEMATOCRIT 13.5 % (42.0-52.0); LYMPH # 3.6 10^3/uL (1.5-4.5); LYMPH % 12.2 % (24.0-44.0); MEAN CORPUSCULAR HEMOGLOBIN 27.9 pg (27.0-33.0); MEAN CORPUSCULAR HGB CONC 31.9 g/dl (32.0-36.5); MEAN CORPUSCULAR VOLUME 87.7 fl (80.0-96.0); MONO % 10.5 % (0.0-5.0); NEUTROPHILS # 21.8 10^3/uL (1.8-7.7); NEUTROPHILS % 73.5 % (36.0-66.0); PLATELET COUNT, AUTOMATED 164 10^3/uL (150-450); RED BLOOD COUNT 1.54 10^6/uL (4.30-6.10); WHITE BLOOD COUNT 29.7 10^3/uL (4.0-10.0)
[2018-12-31 11:56] LABS: INR 1.26; PROTHROMBIN TIME 15.5 SECONDS (11.8-14.0)
[2018-12-31 11:57] LABS: PARTIAL THROMBOPLASTIN TIME 26.2 SECONDS (25.0-38.4)
[2018-12-31] MEDS ORDERED: ATOR1TAB21 PO (12:03)
[2018-12-31] MEDS ORDERED: OMEP40CA2 PO (12:03)
[2018-12-31] MEDS ORDERED: LYRI300C PO (12:03)
[2018-12-31] MEDS ORDERED: VITA50TA47 PO (12:03)
[2018-12-31] MEDS ORDERED: LANTINJ4 SC (12:03)
[2018-12-31] MEDS ORDERED: MOBI15TA PO (12:03)
[2018-12-31] MEDS ORDERED: SANT250O8 TOP (12:03)
[2018-12-31] MEDS ORDERED: INSUH10VL SC (12:03)
[2018-12-31 12:13] LABS: ALBUMIN 2.5 GM/DL (3.2-5.2); ALT/SGPT 21 U/L (12-78); BILIRUBIN,DIRECT < 0.1 MG/DL (0.0-0.2); BILIRUBIN,TOTAL 0.2 MG/DL (0.2-1.0); BLOOD UREA NITROGEN 36 MG/DL (7-18); CALCIUM LEVEL 10.5 MG/DL (8.8-10.2); CARBON DIOXIDE LEVEL 23 MEQ/L (21-32); CHLORIDE LEVEL 103 MEQ/L (98-107); CK-MB VALUE MASS 2.2 NG/ML (<3.6); CPK CREATINE PHOSPHOKINASE 44 U/L (39-308); CREATININE FOR GFR 1.74 MG/DL (0.70-1.30); FREE T4 0.89 NG/DL (0.76-1.46); GLOMERULAR FILTRATION RATE 41.9 (>49); GLUCOSE, FASTING 492 MG/DL (70-100); LIPASE 90 U/L (73-393); MAGNESIUM LEVEL 1.4 MG/DL (1.8-2.4); POTASSIUM SERUM 5.4 MEQ/L (3.5-5.1); SODIUM LEVEL 137 MEQ/L (136-145); TOTAL PROTEIN 5.1 GM/DL (6.4-8.2); TROPONIN I < 0.02 NG/ML (< 0.10)
[2018-12-31 12:15] LABS: HEMOGLOBIN 4.3 g/dl (13.5-17.5); MONO # 3.1 10^3/uL (0.0-0.8)
[2018-12-31] MEDS ORDERED: PANTOPRAZOLE 40MG INJ (PROTONIX) (C9113) IV ONE (12:30)
--- NOTE | 2018-12-31 13:03 | REP ---
Clinical: Generalized abdominal pain. Technique: Axial noncontrast images from the lung bases to the pubic symphysis with coronal and sagittal re-formations. Comparison: 07/27/2018. Findings: Subtle inflammatory stranding in the upper abdomen predominately in the jose pancreatic region and adjacent to the duodenum suggests acute pancreatitis and correlation is required. Liver, spleen, bilateral adrenal glands, gallbladder, and kidneys are essentially normal. Small nonobstructing left intrarenal calculi measuring 2 mm. The enteric system is without obstruction or acute inflammatory process. Pelvis demonstrates normal bladder and age appropriate prostate/seminal vesicles. No ascites. No free air. No obvious adenopathy. Abdominal aorta without aneurysm. Musculoskeletal structures grossly intact. Trace right basilar atelectasis. Impression: 1. Upper abdominal stranding suggesting the possibility of acute pancreatitis and/or duodenitis. 2. 2 mm nonobstructing left renal calculus. 3. Trace right basilar atelectasis. Electronically Signed by Richard Judd MD 12/31/2018 12:54 P
[2018-12-31] MEDS ORDERED: GLUCAGON FOR INJ 1 MG VIAL (J1610) SC PRN (15:15)
[2018-12-31] MEDS ORDERED: DEXTROSE 50% 50 ML SYRINGE IV PRN (15:15)
[2018-12-31] MEDS ORDERED: LEVEMIR (INSULIN DETEMIR) 1 UNITS/0.01ML SC ONE (15:15)
[2018-12-31] MEDS ORDERED: GLUCOSE 4 GM CHEW TABLET PO PRN (15:15)
--- NOTE | 2018-12-31 15:25 | HPEPDOC ---
[facility] Medical History & Physical Date of Admission Dec 31, 2018 Date of Service: Dec 31, 2018 History and Physical CHIEF COMPLAINT: melena HISTORY OF PRESENT ILLNESS: Patient is a 68-year-old male with past medical history of duodenal perforation in July status post ex-lap repair, hypertension, IDDM, BPH and alcohol abuse presented to the ER with complaints of melena. Patient reportedly felt dizzy and weak when he got out of bed this morning and subsequently passed out at home after going to the toilet noted to have dark stool. Patient reported feeling fine prior to this morning. Currently reports intermittent midsternal chest discomfort, SOB and lethargy but otherwise denies any other complaints including abdominal pain. PAST MEDICAL HISTORY: Refer to [facility] PAST SURGICAL HISTORY: Duodenal perforation status post ex-lap repair 2018 Tonsillectomy I surgery Left ear surgery Right large toe amputation one week ago SOCIAL HISTORY: Smokes 1ppd. 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 Denies illicit drug use. FAMILY HISTORY: Parents and siblings all have DM ALLERGIES: Please see below. REVIEW OF SYSTEMS: 10 point review of system negative except as stated in [facility] HOME MEDICATIONS: Please see below. PHYSICAL EXAMINATION: General: Alert, lethargic. Eyes: Normal sclera, EOMI, ATUL HENT: Atraumatic, neck supple, moist mucous membranes Cardiovascular: Normal rate, normal rhythm. No murmurs appreciated. Pulmonary: Clear to auscultation b/l, no wheezing GI: Soft, nontender, nondistended Skin: Warm and dry Neuro: CN grossly intact. No focal deficits. Strengths equal b/l. Psych: oriented x 3 LABORATORY DATA: See below. IMAGING: Head CT- Impression: Age related atrophy and microvascular ischemic changes. No acute intracranial hemorrhage, infarction, or mass/mass effect. Maxillary sinus disease and fluid nonspecific. Spine CT- Impression: Age-appropriate cervical spine CT. No evidence for acute trauma/injury or pathology. Abdomen/Pelvis CT- Impression: 1. Upper abdominal stranding suggesting the possibility of acute pancreatitis and/or duodenitis. 2. 2 mm nonobstructing left renal calculus. 3. Trace right basilar atelectasis. MICROBIOLOGY: Please see below. ASSESSMENT AND PLAN: 1. GI Bleed - Hb 4.3 on presentation, baseline 14-15. - Hx Duodenal perforation. CT abdomen showed evidence of abdominal stranding but no clear evidence of pancreatitis. - To transfuse 3 units pRBC. Follow H/H. - GI consult. Planned for scope in AM at 7:30. - Keep NPO. - Protonix 40IV BID. - Hold any anticoagulation at this time. 2. HTN - BP controlled. - Hold PO medications. 3. Chest pain - No ST changes on EKG, troponin negative. - No history of CAD. Likely 2/2 symptomatic anemia. - continue to monitor. Repeat bloodwork if symptoms persist/not resolve with transfusions. 4. IDDM - Hyperglycemia. IVF support. - Levemir 15 units now and ISS q6H. 5. hx Alcohol abuse - Last 6 drink 6 months prior. DVT ppx: SCD Code status: Full code Vital Signs Vital Signs Date Time Temp Pulse Resp B/P (MAP) Pulse Ox O2 Delivery O2 Flow Rate FiO2 12/31/18 14:00 96.7 75 15 117/57 (77) 99 12/31/18 10:23 Room Air Laboratory Data Labs 24H Laboratory Tests 2 12/31/18 10:29: Bedside Glucose (Misc Panel) 519*H 12/31/18 11:13: Immature Granulocyte % (Auto) 3.6H, White Blood Count 29.7H, Red Blood Count 1.54L, Hemoglobin 4.3*L, Hematocrit 13.5L, Mean Corpuscular Volume 87.7, Mean Corpuscular Hemoglobin 27.9, Mean Corpuscular Hemoglobin Concent 31.9L, Red Cell Distribution Width 14.1, Platelet Count 164, Neutrophils (%) (Auto) 73.5H, Lymphocytes (%) (Auto) 12.2L, Monocytes (%) (Auto) 10.5H, Eosinophils (%) (Auto) 0.1, Basophils (%) (Auto) 0.1, Neutrophils # (Auto) 21.8H, Lymphocytes # (Auto) 3.6, Monocytes # (Auto) 3.1H, Eosinophils # (Auto) 0.0, Basophils # (Auto) 0.0, Nucleated Red Blood Cells % (auto) 0.1H, Prothrombin Time 15.5H, Prothromb Time International Ratio 1.26, Activated Partial Thromboplast Time 26.2, Anion Gap 11, Glomerular Filtration Rate 41.9L, Calcium Level 10.5H, Magnesium Level 1.4L, Aspartate Amino Transf (AST/SGOT) 13, Alanine Aminotransferase (ALT/SGPT) 21, Alkaline Phosphatase 86, Total Bilirubin 0.2, Direct Bilirubin < 0.1, Total Creatine Kinase 44, Creatine Kinase MB 2.2, Creatine Kinase MB Relative Index 5.00H, Troponin I < 0.02, Total Protein 5.1L, Albumin 2.5L, Albumin/Globulin Ratio 0.96L, Lipase 90, Thyroid Stimulating Hormone (TSH) 1.410, Free Thyroxine 0.89 CBC/BMP Laboratory Tests 12/31/18 11:13 Red Blood Count 1.54 L, Mean Corpuscular Volume 87.7, Mean Corpuscular Hemoglobin 27.9, Mean Corpuscular Hemoglobin Concent 31.9 L, Red Cell Distribution Width 14.1, Neutrophils (%) (Auto) 73.5 H, Lymphocytes (%) (Auto) 12.2 L, Monocytes (%) (Auto) 10.5 H, Eosinophils (%) (Auto) 0.1, Basophils (%) (Auto) 0.1, Neutrophils # (Auto) 21.8 H, Lymphocytes # (Auto) 3.6, Monocytes # (Auto) 3.1 H, Eosinophils # (Auto) 0.0, Basophils # (Auto) 0.0 Home Medications Scheduled Acamprosate Calcium (Acamprosate Calcium) 333 Mg Tablet.dr, 666 MG PO TID Amlodipine Besylate (Amlodipine Besylate) 10 Mg Tab, 5 MG PO DAILY Aspirin (Aspirin EC) 81 Mg Tab, 81 MG PO DAILY Atorvastatin Calcium (Atorvastatin Calcium) 20 Mg Tablet, 10 MG PO QHS Collagenase Clostridium Hist. (Santyl) 30 Gm Oint...g., 1 DOSE TOP DAILY APPLY WITH DRESSING CHANGES Cyanocobalamin (Vitamin B-12) (Vitamin B-12) 1,000 Mcg Tab, 1,000 MCG PO DAILY Duloxetine Hcl (Duloxetine HCl) 30 Mg Cap, 30 MG PO DAILY Finasteride (Finasteride) 5 Mg Tab, 5 MG PO DAILY Folic Acid (Folic Acid) 1 Mg Tab, 1 MG PO DAILY Insulin Glargine,Hum.rec.anlog (Lantus Solostar) 100 Unit/1 Ml Insuln.pen, 16 UNITS SC DAILY Insulin Human Lispro (Novolog) 100 Unit/1 Ml Vial, 1 DOSE SC AC PER SLIDING SCALE Levothyroxine Sodium (Levothyroxine Sodium) 25 Mcg Tab, 25 MCG PO DAILY Lisinopril (Lisinopril) 20 Mg Tab, 10 MG PO DAILY Meloxicam (Mobic) 15 Mg Tablet, 7.5 MG PO DAILY Multivitamins (Thera M Plus Tablet) 1 Tab Tab, 1 TAB PO DAILY [place]-3 Fatty Acids/Fish Oil (Fish Oil 1,000 mg Capsule) 1 Each Capsule, 2,000 MG PO BID Omeprazole (Omeprazole) 40 Mg Capsule.dr, 40 MG PO BID Pregabalin (Lyrica) 300 Mg Capsule, 300 MG PO BID Sod Phos Di, [place]/K Phos [place] (K-Phos Neutral Tablet) 1 Tab Tab, 1 TAB PO DAILY Tamsulosin HCl (Flomax) 0.4 Mg Cap, 0.4 MG PO DAILY Thiamine HCl (Vitamin B-1) 50 Mg Tablet, 50 MG PO DAILY Scheduled PRN Acetaminophen (Acetaminophen) 325 Mg Tab, 650 MG PO Q4H PRN for PAIN Allergies Coded Allergies: No Known Allergies (Unverified , 01/09/17) A-FIB/CHADSVASC A-FIB History Current/History of A-Fib/PAF?: No SHELLEY HAYWOOD MD Dec 31, 2018 15:24
[2018-12-31] MEDS: NS 1,000 ML IV SCH (15:46)
[2018-12-31] MEDS ORDERED: NITROGLYCERIN 0.4 MG SUBL TABLET SL STA (16:04)
[2018-12-31 16:28] VITALS: BP 176/78
[2018-12-31] MEDS: HumaLOG INSULIN (NovoLOG) PER UNIT SC SCH (18:56)
[2018-12-31] MEDS: MORPHINE 4 MG/ML 1ML VIAL/SYRINGE (J2270) IV PRN (19:32)
[2018-12-31 20:00] VITALS: BP 183/83
--- NOTE | 2018-12-31 21:42 | ECGEPIP ---
[facility] - ED Test Date: 2018-12-31 Pat Name: CATALINA YEUNG Department: Room: - Gender: Male Echo Vascular Tech: QUINN : 1950 Requested By: CALLIE Morton Order Number: [id number] Reading MD: Cassandra Quevedo Measurements Intervals [place] Rate: 74 P: 47 TX: 178 QRS: QRSD: 106 T: 58 QT: 381 QTc: 423 Interpretive Statements SINUS RHYTHM POSSIBLE PRIOR INFERIOR INFARCT NSTTW abnormalities Electronically Signed on 12-31-2018 21:42:13 EDT by Cassandra Quevedo
[2018-12-31] MEDS: PANTOPRAZOLE 40MG INJ (PROTONIX) (C9113) IV SCH (22:20)
[2018-12-31 23:46] LABS: HEMATOCRIT 20.8 % (42.0-52.0)
[2018-12-31 23:50] LABS: HEMOGLOBIN 7.2 g/dl (13.5-17.5)
[2018-12-31 23:59] VITALS: BP 162/72
[2019-01-01] VITALS (13 sets, daily range): BP systolic 129–189; BP diastolic 60–114
[2019-01-01] MEDS: NS 1,000 ML IV SCH ×4 (04:54→21:06)
[2019-01-01] MEDS: HumaLOG INSULIN (NovoLOG) PER UNIT SC SCH ×4 (06:00→17:47)
[2019-01-01 06:30] LABS: HEMATOCRIT 20.9 % (42.0-52.0); HEMOGLOBIN 7.1 g/dl (13.5-17.5); MEAN CORPUSCULAR HEMOGLOBIN 28.6 pg (27.0-33.0); MEAN CORPUSCULAR VOLUME 84.3 fl (80.0-96.0); PLATELET COUNT, AUTOMATED 130 10^3/uL (150-450); RED BLOOD COUNT 2.48 10^6/uL (4.30-6.10)
[2019-01-01 06:59] LABS: CALCIUM LEVEL 9.3 MG/DL (8.8-10.2); CREATININE FOR GFR 1.3 MG/DL (0.70-1.30); GLOMERULAR FILTRATION RATE 58.6 (>49); POTASSIUM SERUM 4.3 MEQ/L (3.5-5.1)
[2019-01-01] MEDS ORDERED: PROPOFOL 200 MG/20 ML VIAL As Ordered ONE ×2 (07:12→18:22)
[2019-01-01] MEDS ORDERED: LIDOCAINE 2% INJ 100 MG/5 ML SDV (FOR ANES.) As Ordered ONE ×2 (07:12→18:22)
[2019-01-01 07:34] LABS: WHITE BLOOD COUNT 37.2 10^3/uL (4.0-10.0)
--- NOTE | 2019-01-01 09:31 | REP ---
Clinical: Abdominal distension. Possible perforation. Technique: Portable supine view of the abdomen and pelvis. Findings: Visualized bowel gas pattern is relatively nonspecific although mild ileus cannot be excluded. No obvious obstruction or free air identified. Skeletal structures are grossly intact and normal for age. Impression: Cannot exclude mild early ileus pattern. No obvious obstruction or definite perforation appreciated. Electronically Signed by Richard Judd MD 01/01/2019 09:22 A
--- NOTE | 2019-01-01 09:36 | REP ---
Cinical: Possible pneumoperitoneum . Comparison: 12/31/2018 . Findings: The mediastinum and cardiac silhouette are stable and within normal limits for portable technique. The lung bangura are clear without acute consolidation, effusion, or pneumothorax. Skeletal structures are intact. No free air below diaphragm is appreciated. Impression: No acute cardiopulmonary process appreciated. No obvious pneumoperitoneum. Electronically Signed by Richard Judd MD 01/01/2019 09:27 A
[2019-01-01] MEDS: PANTOPRAZOLE 40MG INJ (PROTONIX) (C9113) IV SCH ×2 (09:52→21:06)
[2019-01-01] MEDS: PIPERACILLIN/TAZOBACTAM SOD 3.375 GM in D5W MINI-BAG PLUS 50 ML IV SCH ×3 (10:09→21:06)
[2019-01-01 14:06] LABS: HEMATOCRIT 25.5 % (42.0-52.0); HEMOGLOBIN 8.8 g/dl (13.5-17.5)
[2019-01-01] MEDS: MORPHINE 4 MG/ML 1ML VIAL/SYRINGE (J2270) IV PRN (17:23)
--- NOTE | 2019-01-01 17:39 | CR ---
DATE OF CONSULTATION: 01/01/2019 This is a 68-year-old white male who presents to the emergency room on 12/31/2018 with a previous history of a perforated duodenal ulcer in July 2018. The patient had surgery by Dr. Sinclair at that time. He performed an oversewing of the ulcer and placed an omental patch to repair the perforation. The patient apparently did well did well postoperatively. He has no history of hypertension, diabetes mellitus and alcohol abuse. For the past 3-4 days prior to admission he has noticed black tarry stools. No nausea, vomiting. No hematemesis. The patient had some epigastric pain and some shortness of breath intermittent chest pressure. The patient was admitted to the hospital and was found have a hemoglobin of 4.3. The patient is being seen by GI for probable upper endoscopy and possible Endoscopic therapy to try to control the bleeding. PAST MEDICAL HISTORY: As above. PAST SURGICAL HISTORY: As above. SOCIAL HISTORY: Cigarettes. The patient smokes a pack a day. Apparently he is a recovery alcoholic. His last drink was 6 months ago. The patient denies IV drug abuse. ALLERGIES: As per history of present illness. PHYSICAL EXAMINATION: Physical examination showed a well-developed, well-developed, well-nourished white male in some distress who appears stated age. Chest is clear. Abdomen: Soft, mild epigastric tenderness. Nondistended. No splenomegaly. Bowel sounds are positive. CT apparently was performed on the head which showed micro vascular and ischemic changes no acute intracranial hemorrhage or infarct was seen. Abdominal CT showed an apparent stranding around the to do any elbow on six possibility for pancreatitis. No free air was noted. The laboratory studies on admission showed a white count 29,700, H and H is 4.3 and 13.5 on admission. The patient over the hospital course has been given 5 units of packed cells and his last count of 627 at 148 was 8.18, 25.5 platelets were 130,000. The patient's INR was normal 4.26. The patient's white count on 01/01 jovon to 37.2. Flat plate and was ordered of the abdomen to again exclude any evidence of free air was apparently not flat plate upright. The concern has now raised about the possible ileus. The possibility of pancreatitis was raised to the patient lipase was within normal range at 90. Analysis upper GI bleed possibly secondary to a relapse of the patient's duodenal ulcer. The patient may have been taking nonsteroidal meloxicam and baby aspirin but after discussion with the patient. He is unclear of what meds he is taking. We have consulted Dr. Ellison just to have a surgical backup due to the elevated white count I do not feel that this is related to pancreatitis. The patient does complain of epigastric pain with radiation straight to his back so we are concerned about a duodenal ulcer that is penetrating into the pancreas. PLAN: The plan will be to get the patient set up for an upper endoscopy with possible therapy of the possible bleeding of the ulcer either with injection therapy, EndoProbe or hemoclips, whatever we can do to try to slow the bleeding down and see if we can avoid another operation at this time.
[2019-01-01] MEDS ORDERED: fentaNYL 100 MCG/2 ML INJECTION (J3010) As Ordered ONE (18:22)
--- NOTE | 2019-01-01 18:51 | ROOR ---
Patient Name: Nba Lee Procedure Date: 01/01/2019 6:23 PM Date of : 1950 Age: 68 Room: Main OR Gender: Male Note Status: Finalized Procedure: Upper GI endoscopy Indications: Epigastric abdominal pain, Iron deficiency anemia, Exclusion of acute duodenal ulcer, Follow-up of acute duodenal ulcer, For therapy of acute duodenal ulcer Providers: Elbert Kim MD Referring MD: Gwendolyn Multani DO, 2. Inpatient 2. Inpatient Requesting Provider: Medicines: Monitored Anesthesia Care Complications: No immediate complications. Procedure: Pre-Anesthesia Assessment: - The heart rate, respiratory rate, oxygen saturations, blood pressure, adequacy of pulmonary ventilation, and response to care were monitored throughout the procedure. The Endoscope was introduced through the mouth, and advanced to the second part of duodenum. The upper GI endoscopy was accomplished without difficulty. The patient tolerated the procedure well. Findings: The Z-line was irregular and was found 37 cm from the incisors. Severe esophagitis with no bleeding was found. Diffuse mild inflammation characterized by congestion (edema) and erythema was found in the gastric antrum. Diffuse severe inflammation characterized by congestion (edema), erythema, friability, linear erosions and shallow ulcerations was found in the entire duodenum. The exam was otherwise without abnormality. Impression: - Z-line irregular, 37 cm from the incisors. - Severe erosive esophagitis. - Gastritis. - Duodenitis. - The examination was otherwise normal. - No specimens collected. - The examination was otherwise normal. Recommendation: - Return patient to ICU for ongoing care. - Clear liquid diet. - Use Prilosec (omeprazole) 40 mg PO BID. - Use sucralfate tablets 1 gram PO QID. - Return to referring physician. - The findings and recommendations were discussed with the patient's family. Elbert Kim MD Elbert Kim MD 01/01/2019 6:50:28 PM Electronically signed by Elbert Kim MD Number of Addenda: 0 Note Initiated On: 01/01/2019 6:23 PM Estimated Blood Loss: Estimated blood loss: none.
--- NOTE | 2019-01-01 21:04 | IPNPDOC ---
Subjective Date Seen The patient was seen on 01/01/19. Subjective Chief Complaint/HPI 68-year-old male with history of perforated duodenal ulcer, status post omental patch in July, now admitted with recurrent GI bleeding and abdominal pain. Patient was found to have severe anemia and was aggressively transfused overnight. He is still complaining of melena, epigastric pain, back pain and chest pain. Hemoglobin responded appropriately from 4 up to 7 after 3 units white count is also increased significantly up to 37,000. For this reason, he was empirically started on antibiotics. Surgery was consulted and the endoscopy was performed in the OR. He was found to have no active bleeding but severe erosive esophagitis and duodenitis General: Reports: Fatigue Constitutional: Reports: Fatigue Eyes: Denies: Pain, Vision change ENT: Denies: Head Aches, Ear Pain, Dysphagia Skin: Denies: Rash, Lesions, Breakdown Pulmonary: Reports: Dyspnea Cardiovascular: Reports: Chest Pain Gastrointestinal: Reports: Abdominal Pain, Melena Genitourinary: Denies: Dysuria, Frequency, Incontinence, Retention Musculoskeletal: Reports: Back Pain Neurological: Denies: Weakness, Numbness, Change in speech, Confusion Psych: Reports: Mood Normal; Denies: Depression, Memory Issues Objective Physical Examination General Exam: Positive: Alert, Cooperative, Mild Distress Eye Exam: Positive: PERRLA, Conjunctiva & lids normal, EOMI; Negative: Sclera icteric ENT Exam: Positive: Atraumatic, Mucous membr. moist/pink, Pharynx Normal Neck Exam: Positive: Supple; Negative: JVD, thyromegaly Chest Exam: Positive: Clear to auscultation, Normal air movement Heart Exam: Positive: Rate Normal, Regular Rhythm, Normal S1, Normal S2; Negative: Murmurs, Rubs Abdomen Exam: Positive: Tenderness Extremity Exam: Positive: Normal pulses; Negative: Clubbing, Cyanosis, Edema Skin Exam: Positive: Nl turgor and temperature; Negative: Rash, Breakdown Neuro Exam: Positive: Normal Gait, Normal Speech, Cranial Nerves 3-12 NL, Reflexes 2+ Psych Exam: Positive: Mental status NL, Mood NL, Oriented x 3 Assessment /Plan Assessment 68-year-old male with GI bleeding and acute blood loss anemia. Continue to trend H&H. Receiving 6th unit of packed red blood cells tonight. Transferred to ICU. Continue PPI. Add Carafate. Clear liquid diet as tolerated. GI and surgery following. Leukocytosis. Unclear source, possibly reactive. Continue empiric Zosyn. Follow-up cultures. Check progressed Plan/VTE VTE Prophylaxis Ordered?: Yes VTE Exclusion Pharmacological: Active Bleeding VS, I&O, 24H, Fishbone Vital Signs/I&O Vital Signs Date Time Temp Pulse Resp B/P (MAP) Pulse Ox O2 Delivery O2 Flow Rate FiO2 01/01/19 19:00 20 94 01/01/19 19:00 66 174/77 (109) 01/01/19 18:55 98 01/01/19 18:45 10 12/31/18 20:45 Room Air I&O- Last 24 Hours up to 6 AM 01/01/19 06:00 Intake Total 1420 ml Output Total 450 ml Balance 970 ml Laboratory Data 24H LABS Laboratory Tests 2 01/01/19 00:47: Bedside Glucose (Misc Panel) 149H 01/01/19 05:30: Nucleated Red Blood Cells % (auto) 1.5H, Anion Gap 5L, Glomerular Filtration Rate 58.6, Blood Urea Nitrogen 26H, Creatinine 1.30, Sodium Level 143, Potassium Level 4.3#, Chloride Level 111H, Carbon Dioxide Level 27, Calcium Level 9.3 01/01/19 06:18: Bedside Glucose (Misc Panel) 184H 01/01/19 11:51: Bedside Glucose (Misc Panel) 232H 01/01/19 17:24: Bedside Glucose (Misc Panel) 162H 01/01/19 18:43: Bedside Glucose (Misc Panel) 175H CBC/BMP Laboratory Tests 12/31/18 23:41 01/01/19 05:30 Red Blood Count 2.48 L, Mean Corpuscular Volume 84.3, Mean Corpuscular Hemoglobin 28.6, Mean Corpuscular Hemoglobin Concent 34.0, Red Cell Distribution Width 13.9, Calcium Level 9.3 01/01/19 13:48 RANDALL MUNIZ MD Jan 01, 2019 21:04
[2019-01-01] MEDS: SUCRALFATE SUSP 1GM/10ML UD PO SCH (21:13)
[2019-01-02] VITALS: BP 149/67
[2019-01-02] MEDS: HumaLOG INSULIN (NovoLOG) PER UNIT SC SCH ×4 (00:14→18:02)
--- NOTE | 2019-01-02 00:14 | ECGEPIP ---
[facility] Test Date: 2019-01-01 Pat Name: CATALINA YEUNG Department: Room: [place] [address] Gender: Male Box Blank Machine Feeder: KAVITHA : 1950 Requested By: RANDALL Arroyo Order Number: [id number] Reading MD: Colby Mata Measurements Intervals [place] Rate: 70 P: 48 ID: [id number] QRS: QRSD: 101 T: 52 QT: 400 QTc: 432 Interpretive Statements SINUS RHYTHM WITH MARKED SINUS ARRHYTHMIA NONSPECIFIC ST-T ABNORMALITY PRIOR TRACING ON 12/31/2018 AT 10:49 A.M., NO SIGNIFICANT CHANGES Electronically Signed on 01-02-2019 0:14:44 EDT by Colby Mata
[2019-01-02 00:49] LABS: HEMOGLOBIN 10.2 g/dl (13.5-17.5)
[2019-01-02] MEDS: PIPERACILLIN/TAZOBACTAM SOD 3.375 GM in D5W MINI-BAG PLUS 50 ML IV SCH ×3 (03:54→15:53)
[2019-01-02 04:00] VITALS: BP 178/77
[2019-01-02 06:36] LABS: HEMATOCRIT 32.7 % (42.0-52.0); HEMOGLOBIN 11.6 g/dl (13.5-17.5); MEAN CORPUSCULAR HEMOGLOBIN 29.7 pg (27.0-33.0); MEAN CORPUSCULAR HGB CONC 35.5 g/dl (32.0-36.5); MEAN CORPUSCULAR VOLUME 83.8 fl (80.0-96.0); PLATELET COUNT, AUTOMATED 142 10^3/uL (150-450); WHITE BLOOD COUNT 29.8 10^3/uL (4.0-10.0)
[2019-01-02 06:51] LABS: CALCIUM LEVEL 8.8 MG/DL (8.8-10.2); CREATININE FOR GFR 1.3 MG/DL (0.70-1.30); GLOMERULAR FILTRATION RATE 58.6 (>49); POTASSIUM SERUM 3.7 MEQ/L (3.5-5.1)
[2019-01-02 07:52] VITALS: BP 174/79
[2019-01-02] MEDS: NS 1,000 ML IV SCH ×2 (08:37→09:21)
[2019-01-02] MEDS: SUCRALFATE SUSP 1GM/10ML UD PO SCH ×4 (09:20→20:47)
[2019-01-02] MEDS: PANTOPRAZOLE 40MG INJ (PROTONIX) (C9113) IV SCH ×2 (09:20→20:47)
[2019-01-02] MEDS: MAG SULF 1GM/100ML (MAG RUN) 1 GM in APPROPRIATE DILUENT 1 EA IV SCH ×3 (12:28→13:50)
[2019-01-02 12:40] LABS: HEMATOCRIT 29.7 % (42.0-52.0); HEMOGLOBIN 10.2 g/dl (13.5-17.5)
[2019-01-02 16:27] VITALS: BP 143/69
[2019-01-02 18:42] LABS: HEMATOCRIT 33.3 % (42.0-52.0); HEMOGLOBIN 11.3 g/dl (13.5-17.5)
--- NOTE | 2019-01-02 19:05 | IPNPDOC ---
Subjective Date Seen The patient was seen on 01/02/19. Subjective Chief Complaint/HPI 68-year-old male with history of perforated duodenal ulcer, status post omental patch in July, now admitted with severe anemia and abdominal pain. He was resuscitated and started on empiric abx. endoscopy revealed no active bleeding but severe erosive esophagitis and duodenitis. Today pt is doing better, no further diarrhea, abdominal pain is much better. hemoglobin improved to 11, wbcs down to 30. Pt has been refusing clear and full liquid diets. becoming agitated and belligerent with nursing. General: Reports: Normal Appetite; Denies: Chills, Night Sweats, Fatigue, Malaise Constitutional: Denies: Chills, Fever, Night Sweats Eyes: Denies: Pain, Vision change ENT: Denies: Head Aches, Ear Pain, Dysphagia Skin: Denies: Rash, Lesions, Breakdown Pulmonary: Denies: Dyspnea, Cough Cardiovascular: Denies: Chest Pain, Palpitations, Orthopnea, Paroxysmal Noc. Dyspnea, Lt Headedness Gastrointestinal: Reports: Abdominal Pain, Diarrhea Genitourinary: Denies: Dysuria, Frequency, Incontinence, Retention Hematologic: Denies: Bruising, Bleeding Excessively Musculoskeletal: Reports: Back Pain Neurological: Denies: Weakness, Numbness, Change in speech, Confusion Psych: Reports: Mood Normal; Denies: Depression, Memory Issues Objective Physical Examination General Exam: Positive: Alert, Cooperative, Mild Distress Eye Exam: Positive: PERRLA, Conjunctiva & lids normal, EOMI; Negative: Sclera icteric ENT Exam: Positive: Atraumatic, Mucous membr. moist/pink, Pharynx Normal Neck Exam: Positive: Supple; Negative: JVD, thyromegaly Chest Exam: Positive: Clear to auscultation, Normal air movement Heart Exam: Positive: Rate Normal, Regular Rhythm, Normal S1, Normal S2; Negative: Murmurs, Rubs Abdomen Exam: Positive: Tenderness Extremity Exam: Positive: Normal pulses; Negative: Clubbing, Cyanosis, Edema Skin Exam: Positive: Nl turgor and temperature; Negative: Rash, Breakdown Neuro Exam: Positive: Normal Gait, Normal Speech, Cranial Nerves 3-12 NL, Reflexes 2+ Psych Exam: Positive: Mental status NL, Mood NL, Oriented x 3 Assessment /Plan Assessment 68-year-old male with abdominal pain and acute blood loss anemia. hemoglobin improved and stable no evidence of further bleeding egd without active bleeding esophagitis/duodenitis continue ppi continue carafate Leukocytosis. improving check urine stop zosyn follow up cultures agitation concern for etoh withdrawal pt anxious to leave will start ciwa Plan/VTE VTE Prophylaxis Ordered?: Yes VTE Exclusion Pharmacological: Active Bleeding VS, I&O, 24H, Fishbone Vital Signs/I&O Vital Signs Date Time Temp Pulse Resp B/P (MAP) Pulse Ox O2 Delivery O2 Flow Rate FiO2 01/02/19 16:27 98.0 66 20 143/69 (93) 94 01/01/19 18:45 10 12/31/18 20:45 Room Air I&O- Last 24 Hours up to 6 AM 01/02/19 06:00 Intake Total 3245 ml Output Total 525 ml Balance 2720 ml Laboratory Data 24H LABS Laboratory Tests 2 01/02/19 00:07: Bedside Glucose (Misc Panel) 194H 01/02/19 06:14: Bedside Glucose (Misc Panel) 143H 01/02/19 06:19: Nucleated Red Blood Cells % (auto) 12.5H, Anion Gap 10, Glomerular Filtration Rate 58.6, Blood Urea Nitrogen 16, Creatinine 1.30, Sodium Level 141, Potassium Level 3.7, Chloride Level 112H, Carbon Dioxide Level 19L, Calcium Level 8.8 01/02/19 08:02: Magnesium Level 1.4L 01/02/19 08:10: Procalcitonin 0.57 01/02/19 12:10: Bedside Glucose (Misc Panel) 175H 01/02/19 17:28: Bedside Glucose (Misc Panel) 163H CBC/BMP Laboratory Tests 01/02/19 00:31 01/02/19 06:19 Red Blood Count 3.90 L, Mean Corpuscular Volume 83.8, Mean Corpuscular Hemoglobin 29.7, Mean Corpuscular Hemoglobin Concent 35.5, Red Cell Distribution Width 14.3, Calcium Level 8.8 01/02/19 12:27 01/02/19 18:27 RANDALL MUNIZ MD Jan 02, 2019 19:05
[2019-01-02] MEDS ORDERED: LORazepam 2 MG TAB PO PRN (19:15)
[2019-01-02 20:00] VITALS: BP 141/77
[2019-01-02] MEDS: THIAMINE 100 MG TAB PO SCH (20:47)
[2019-01-02] MEDS: MULTIVITAMINS/MINERALS THERAP 1 TAB PO SCH (20:48)
[2019-01-02] MEDS: FOLIC ACID 1 MG TAB PO SCH (20:48)
[2019-01-02] MEDS ORDERED: HumaLOG INSULIN (NovoLOG) PER UNIT SC SCH (21:00)
[2019-01-03] VITALS: BP 139/67
[2019-01-03 04:00] VITALS: BP 131/87
[2019-01-03 04:46] LABS: HEMATOCRIT 30.7 % (42.0-52.0); HEMOGLOBIN 10.4 g/dl (13.5-17.5); MEAN CORPUSCULAR HEMOGLOBIN 29.3 pg (27.0-33.0); MEAN CORPUSCULAR HGB CONC 33.9 g/dl (32.0-36.5); MEAN CORPUSCULAR VOLUME 86.5 fl (80.0-96.0); PLATELET COUNT, AUTOMATED 164 10^3/uL (150-450); RED BLOOD COUNT 3.55 10^6/uL (4.30-6.10); WHITE BLOOD COUNT 16.3 10^3/uL (4.0-10.0)
[2019-01-03 05:03] LABS: ANISOCYTOSIS 1+; ATYPICAL LYMPH 1 % (0-5); BASOPHILS 1 % (0-4); EOSINOPHILS 1 % (0-5); LYMPHOCYTES 20 % (16-52); MONOCYTES 10 % (0-8); MYELOCYTES 3 % (0-0); NEUTROPHILS 61 % (35-75); PLATELET ESTIMATE NORMAL (NORMAL)
[2019-01-03 05:04] LABS: POLYCHROMASIA 1+; TOXIC VACUOLATION 1+
[2019-01-03 05:06] LABS: PLATELET CLUMPS SMALL AMT
[2019-01-03 05:07] LABS: BLOOD UREA NITROGEN 14 MG/DL (7-18); CALCIUM LEVEL 7.6 MG/DL (8.8-10.2); CARBON DIOXIDE LEVEL 23 MEQ/L (21-32); CHLORIDE LEVEL 109 MEQ/L (98-107); CREATININE FOR GFR 1.05 MG/DL (0.70-1.30); GLOMERULAR FILTRATION RATE > 60.0 (>49); GLUCOSE, FASTING 136 MG/DL (70-100); POTASSIUM SERUM 3.8 MEQ/L (3.5-5.1); SODIUM LEVEL 141 MEQ/L (136-145)
[2019-01-03 06:00] VITALS: BP 129/88
[2019-01-03 08:00] VITALS: BP 148/84
[2019-01-03] MEDS: HumaLOG INSULIN (NovoLOG) PER UNIT SC SCH (08:32)
[2019-01-03] MEDS: SUCRALFATE SUSP 1GM/10ML UD PO SCH (08:32)
[2019-01-03] MEDS: PANTOPRAZOLE 40MG INJ (PROTONIX) (C9113) IV SCH (08:32)
[2019-01-03] MEDS: THIAMINE 100 MG TAB PO SCH (08:33)
[2019-01-03] MEDS: FOLIC ACID 1 MG TAB PO SCH (08:33)
[2019-01-03] MEDS: MULTIVITAMINS/MINERALS THERAP 1 TAB PO SCH (08:33)
[2019-01-03] MEDS ORDERED: SUCR10SS PO (09:03)
--- NOTE | 2019-01-03 12:51 | DS.PDOC ---
Discharge Summary General Date of Admission Dec 31, 2018 at 15:02 Date of Discharge 01.03.19 Discharge Summary PROCEDURES PERFORMED DURING STAY: [EGD]. ADMITTING DIAGNOSES: 1. [GI bleed]. DISCHARGE DIAGNOSES: 1. [esophagitis, duodenitis, severe anemia]. COMPLICATIONS/CHIEF COMPLAINT: Gi Bleed, Hyperglycemia. HOSPITAL COURSE: Patient is a 68-year-old male with past medical history of duodenal perforation in July status post ex-lap repair, hypertension, IDDM, BPH and alcohol abuse presented to the ER with complaints of melena. Patient reportedly felt dizzy and weak when he got out of bed this morning and subsequently passed out at home after going to the toilet noted to have dark stool. Patient reported feeling fine prior to this morning. He was found to have severe anemia and was admitted to pcu for gi bleeding. He was aggressively resuscitated with fluids and prbcs. He was started on a protonix drip. GI and surgery were consulted. He was also noted to have a very elevated white count. He was started on zosyn empirically. He underwent EGD which revealed severe erosive esophagitis and duodenitis. He was started on carafate. His abdominal pain improved, hemoglobin responded to transfusion and did not drop again, and white count came down without intervention. He had been placed on ciwa protocol for possible withdrawal however never required any treatment. DISCHARGE MEDICATIONS: Please see below. ALLERGIES: Please see below. PHYSICAL EXAMINATION ON DISCHARGE: VITAL SIGNS: Please see below. General Exam: Positive: Alert, Cooperative, Mild Distress Eye Exam: Positive: PERRLA, Conjunctiva & lids normal, EOMI; Negative: Sclera icteric ENT Exam: Positive: Atraumatic, Mucous membr. moist/pink, Pharynx Normal Neck Exam: Positive: Supple; Negative: JVD, thyromegaly Chest Exam: Positive: Clear to auscultation, Normal air movement Heart Exam: Positive: Rate Normal, Regular Rhythm, Normal S1, Normal S2; Negative: Murmurs, Rubs Abdomen Exam: Positive: Tenderness Extremity Exam: Positive: Normal pulses; Negative: Clubbing, Cyanosis, Edema Skin Exam: Positive: Nl turgor and temperature; Negative: Rash, Breakdown Neuro Exam: Positive: Normal Gait, Normal Speech, Cranial Nerves 3-12 NL, Reflexes 2+ Psych Exam: Positive: Mental status NL, Mood NL, Oriented x 3 LABORATORY DATA: Please see below. ACTIVITY: [As tolerated]. DIET: [diabetic] DISCHARGE PLAN: [home, f/u with GI] DISPOSITION: home DISCHARGE CONDITION: [Stable]. Vital Signs/I&Os Vital Signs Date Time Temp Pulse Resp B/P (MAP) Pulse Ox O2 Delivery O2 Flow Rate FiO2 01/03/19 08:00 97.7 72 18 148/84 (105) 98 01/01/19 18:45 10 12/31/18 20:45 Room Air I&O- Last 24 Hours up to 6 AM 01/03/19 06:00 Intake Total 1760 ml Output Total 400 ml Balance 1360 ml Laboratory Data Labs 24H Laboratory Tests 2 01/02/19 17:28: Bedside Glucose (Misc Panel) 163H 01/02/19 20:39: Bedside Glucose (Misc Panel) 119H 01/03/19 04:11: Immature Granulocyte % (Auto) , Nucleated Red Blood Cells % (auto) 7.9H, Neutrophils 61, Band Neutrophils 3, Lymphocytes (Manual) 20, Monocytes (Manual) 10H, Eosinophils (Manual) 1, Basophils (Manual) 1, Myelocytes 3H, Atypical Lymphocytes 1, Toxic Vacuolation 1+, Platelet Estimate NORMAL, Clumped Platelets SMALL AMT, Polychromasia 1+, Anisocytosis 1+, Anion Gap 9, Glomerular Filtration Rate > 60.0, Blood Urea Nitrogen 14, Creatinine 1.05, Sodium Level 141, Potassium Level 3.8, Chloride Level 109H, Carbon Dioxide Level 23, Calcium Level 7.6L CBC/BMP Laboratory Tests 01/02/19 18:27 01/03/19 04:11 Red Blood Count 3.55 L, Mean Corpuscular Volume 86.5, Mean Corpuscular Hemoglobin 29.3, Mean Corpuscular Hemoglobin Concent 33.9, Red Cell Distribution Width 14.6 H, Calcium Level 7.6 L FSBS Laboratory Tests Test 01/02/19 17:28 01/02/19 20:39 Range/Units Bedside Glucose (Misc Panel) 163 119 80-115 MG/DL Discharge Medications Scheduled Acamprosate Calcium (Acamprosate Calcium) 333 Mg Tablet.dr, 666 MG PO TID, (Reported) Amlodipine Besylate (Amlodipine Besylate) 10 Mg Tab, 5 MG PO DAILY, (Reported) Aspirin (Aspirin EC) 81 Mg Tab, 81 MG PO DAILY, (Reported) Atorvastatin Calcium (Atorvastatin Calcium) 20 Mg Tablet, 10 MG PO QHS, (Reported) Collagenase Clostridium Hist. (Santyl) 30 Gm Oint...g., 1 DOSE TOP DAILY, (Reported) APPLY WITH DRESSING CHANGES Cyanocobalamin (Vitamin B-12) (Vitamin B-12) 1,000 Mcg Tab, 1,000 MCG PO DAILY, (Reported) Duloxetine Hcl (Duloxetine HCl) 30 Mg Cap, 30 MG PO DAILY, (Reported) Finasteride (Finasteride) 5 Mg Tab, 5 MG PO DAILY, (Reported) Folic Acid (Folic Acid) 1 Mg Tab, 1 MG PO DAILY, (Reported) Insulin Glargine,Hum.rec.anlog (Lantus Solostar) 100 Unit/1 Ml Insuln.pen, 16 UNITS SC DAILY, (Reported) Insulin Human Lispro (Novolog) 100 Unit/1 Ml Vial, 1 DOSE SC AC, (Reported) PER SLIDING SCALE Levothyroxine Sodium (Levothyroxine Sodium) 25 Mcg Tab, 25 MCG PO DAILY, (Reported) Lisinopril (Lisinopril) 20 Mg Tab, 10 MG PO DAILY, (Reported) Meloxicam (Mobic) 15 Mg Tablet, 7.5 MG PO DAILY, (Reported) Multivitamins (Thera M Plus Tablet) 1 Tab Tab, 1 TAB PO DAILY, (Reported) [place]-3 Fatty Acids/Fish Oil (Fish Oil 1,000 mg Capsule) 1 Each Capsule, 2,000 MG PO BID, (Reported) Omeprazole (Omeprazole) 40 Mg Capsule.dr, 40 MG PO BID, (Reported) Pregabalin (Lyrica) 300 Mg Capsule, 300 MG PO BID, (Reported) Sod Phos Di, [place]/K Phos [place] (K-Phos Neutral Tablet) 1 Tab Tab, 1 TAB PO DAILY, (Reported) Sucralfate (Sucralfate) 1 Gm/10 Ml Oral.susp, 10 ML PO ACHS Tamsulosin HCl (Flomax) 0.4 Mg Cap, 0.4 MG PO DAILY, (Reported) Thiamine HCl (Vitamin B-1) 50 Mg Tablet, 50 MG PO DAILY, (Reported) Scheduled PRN Acetaminophen (Acetaminophen) 325 Mg Tab, 650 MG PO Q4H PRN for PAIN, (Reported) Allergies Coded Allergies: No Known Allergies (Unverified , 01/09/17) RANDALL MUNIZ MD Jan 03, 2019 12:51
== END 2019-01-03 10:30 | disposition home or self-care (01) | DRG 378 ==
LOC: M ED 10:00 → M ED INP 15:02 → M PCU 21:06 → M ICU 01-01 11:07
PROVIDERS: ADMIT Student in an Organized Health Care Education/Training Program; ATTEND Hospitalist
PROC: 30233N1 Transfusion of Nonautologous Red Blood Cells into Peripheral Vein, Percutaneous Approach (ICD-10-PCS; 2018-12-31)
PROC: 0DJ08ZZ Inspection of Upper Intestinal Tract, Via Natural or Artificial Opening Endoscopic (ICD-10-PCS; principal; 2019-01-01 08:18)
DX: K92.2 Gastrointestinal hemorrhage, unspecified (principal); D62 Acute posthemorrhagic anemia; F10.21 Alcohol dependence, in remission; I10 Essential (primary) hypertension; F17.210 Nicotine dependence, cigarettes, uncomplicated; E11.65 Type 2 diabetes mellitus with hyperglycemia; Z89.411 Acquired absence of right great toe; Z79.82 Long term (current) use of aspirin; Z79.4 Long term (current) use of insulin; Z79.1 Long term (current) use of non-steroidal anti-inflammatories (NSAID); Z79.899 Other long term (current) drug therapy; K29.70 Gastritis, unspecified, without bleeding; K29.80 Duodenitis without bleeding

== ENCOUNTER 2019-03-04 06:49 | Day surgery (SDC) | payer OTHER ==
[~2019-03-04] VITALS: Ht 180.3 cm; Wt 91.6 kg
[~2019-03-04 06:49] MED LIST changes: +ACAM0.05 PO; +ATOR1TAB21 PO; +CYAN100049 PO; -DULO1CAP2 PO; +DULO1CAP5 PO; +FISH1000 PO; +INSUH10VL SC; +LANTINJ4 SC; +LYRI300C PO; +MOBI15TA PO; +NEOSOI EXT; +NS 1,000 ML IV ONE; +SANT250O8 TOP; +SUCR10SS PO; -VITA10002 PO; +VITA50TA47 PO
[2019-03-04] MEDS ORDERED: PROPOFOL 200 MG/20 ML VIAL As Ordered ONE (07:00)
--- NOTE | 2019-03-04 08:43 | ROOR ---
Patient Name: Nba Lee Procedure Date: 03/04/2019 8:11 AM Date of : 1950 Age: 68 Room: [facility] Gender: Male Note Status: Finalized Procedure: Total Colonoscopy to Cecum + Cold Snare Polypectomy Indications: Screening for colorectal malignant neoplasm Providers: Elbert Kim MD Referring MD: [facility] [place], Admin. Requesting Provider: Medicines: Monitored Anesthesia Care Complications: No immediate complications. Procedure: Pre-Anesthesia Assessment: - The heart rate, respiratory rate, oxygen saturations, blood pressure, adequacy of pulmonary ventilation, and response to care were monitored throughout the procedure. The Colonoscope was introduced through the anus and advanced to the cecum, identified by appendiceal orifice and ileocecal valve. The colonoscopy was performed without difficulty. The patient tolerated the procedure well. The quality of the bowel preparation was excellent. Findings: The perianal and digital rectal examinations were normal. Non-bleeding internal hemorrhoids were found during retroflexion. The hemorrhoids were small and Grade I (internal hemorrhoids that do not prolapse). Two sessile polyps were found at 25 cm proximal to the anus. The polyps were small in size. These polyps were removed with a cold snare. Resection and retrieval were complete. A small polyp was found at 50 cm proximal to the anus. The polyp was sessile. The polyp was removed with a cold snare. Resection and retrieval were complete. Scattered small-mouthed diverticula were found in the recto-sigmoid colon, sigmoid colon and descending colon. The exam was otherwise without abnormality on direct and retroflexion views. Impression: - Non-bleeding internal hemorrhoids. - Two small polyps at 25 cm proximal to the anus, removed with a cold snare. Resected and retrieved. - One small polyp at 50 cm proximal to the anus, removed with a cold snare. Resected and retrieved. - Diverticulosis in the recto-sigmoid colon, in the sigmoid colon and in the descending colon. - The examination was otherwise normal on direct and retroflexion views. - The exam was otherwise normal to the cecum. Recommendation: - Patient has a contact number available for emergencies. The signs and symptoms of potential delayed complications were discussed with the patient. Return to normal activities tomorrow. Written discharge instructions were provided to the patient. - High fiber diet. - Discharge patient to home. - Continue present medications. - Await pathology results. - Telephone GI clinic for pathology results in 1 week. - Return to referring physician. - Repeat colonoscopy in 5 years for surveillance based on pathology results. - Return to referring physician. - The findings and recommendations were discussed with the patient's family. Elbert Kim MD Elbert Kim MD 03/04/2019 8:43:22 AM Electronically signed by Elbert Kim MD Number of Addenda: 0 Note Initiated On: 03/04/2019 8:11 AM Estimated Blood Loss: Estimated blood loss: none.
[2019-03-04 09:00] VITALS: BP 188/88
== END 2019-03-04 09:10 | disposition home or self-care (01) ==
LOC: M OPP 06:49
PROVIDERS: ATTEND Internal Medicine Gastroenterology
DX: Z12.11 Encounter for screening for malignant neoplasm of colon (principal); D12.6 Benign neoplasm of colon, unspecified; K64.0 First degree hemorrhoids; K57.30 Diverticulosis of large intestine without perforation or abscess without bleeding; Z79.4 Long term (current) use of insulin; Z79.899 Other long term (current) drug therapy; F17.210 Nicotine dependence, cigarettes, uncomplicated

== ENCOUNTER 2019-07-29 12:47 | Emergency (ER) | payer MEDICARE, BC, OTHER ==
[~2019-07-29] VITALS: Ht 180.3 cm; Wt 93.3 kg
[~2019-07-29 12:47] MED LIST changes: -GLIM1TAB PO; +GLIM1TAB4 PO; -NS 1,000 ML IV ONE; -OMEP40CA2 PO; +OMEP40CA97 PO; -TRAZ-163 PO; +TRAZ-257 PO; -VALS1TAB49 PO; +VALS40TA9 PO
--- NOTE | 2019-07-29 13:43 | REP ---
Left shoulder series: Three views. History: Left shoulder pain after a fall. Comparison is made with chest x-ray from January 01, 2019. Findings: There is diffuse osteoporosis. There is an impacted comminuted fracture of the surgical neck of the left humerus. There is inferior subluxation of the humeral head relative to the glenoid consistent with hemarthrosis. The fracture appears to be intra-articular. The acromioclavicular joint is normally aligned. No scapular or clavicular fracture is seen. There are old healed rib fractures noted on the left unchanged from the comparison chest x-ray. Impression: Impacted comminuted intra-articular fracture of the surgical neck and humeral head on the left with hemarthrosis. Osteoporosis. Old healed left-sided rib fractures. Electronically Signed by Jose Koch MD 07/29/2019 07:04 P
[2019-07-29] MEDS ORDERED: PERC5TAB12 PO (13:44)
[2019-07-29 13:45] VITALS: BP 166/88
[2019-07-29] MEDS ORDERED: PERCOCET 5MG/325MG TAB PO ONE (13:45)
== END 2019-07-29 14:19 | disposition home or self-care (01) ==
LOC: M ED 12:47
DX: S42.212A Unspecified displaced fracture of surgical neck of left humerus, initial encounter for closed fracture (principal); W18.39XA Other fall on same level, initial encounter; Y92.018 Other place in single-family (private) house as the place of occurrence of the external cause; E10.9 Type 1 diabetes mellitus without complications; I10 Essential (primary) hypertension; E07.9 Disorder of thyroid, unspecified; G62.9 Polyneuropathy, unspecified; G47.30 Sleep apnea, unspecified; Z79.899 Other long term (current) drug therapy; Z79.82 Long term (current) use of aspirin; Z79.4 Long term (current) use of insulin; F17.210 Nicotine dependence, cigarettes, uncomplicated

== ENCOUNTER 2019-12-10 16:30 | Inpatient (IN) | payer MEDICARE, BC, OTHER ==
[~2019-12-10] VITALS: Ht 180.3 cm; Wt 84.8 kg
[~2019-12-10 16:30] MED LIST changes: +PERC5TAB12 PO; -SUCR10SS PO; +SUCR1ORA2 PO
[2019-12-10] MEDS ORDERED: NS 1,000 ML IV ONE (16:45)
[2019-12-10] MEDS ORDERED: NS 2,730 ML in IV 1 EA IV ONE (17:00)
[2019-12-10 17:13] LABS: BASO % 0.2 % (0.0-1.0); EOS # 0.1 10^3/uL (0.0-0.5); EOS % 0.7 % (0.0-3.0); HEMOGLOBIN 11.6 g/dl (13.5-17.5); LYMPH # 2.9 10^3/uL (1.5-5.0); LYMPH % 17.5 % (24.0-44.0); MEAN CORPUSCULAR HEMOGLOBIN 28.6 pg (27.0-33.0); MEAN CORPUSCULAR HGB CONC 31.4 g/dl (32.0-36.5); MEAN CORPUSCULAR VOLUME 91.1 fl (80.0-96.0); MONO # 1.2 10^3/uL (0.0-0.8); NEUTROPHILS # 12.4 10^3/uL (1.5-8.5); PLATELET COUNT, AUTOMATED 301 10^3/uL (150-450); RED BLOOD COUNT 4.06 10^6/uL (4.30-6.10); WHITE BLOOD COUNT 16.8 10^3/uL (4.0-10.0)
[2019-12-10 17:35] LABS: INR 1.23; PROTHROMBIN TIME 15.2 SECONDS (11.8-14.0)
--- NOTE | 2019-12-10 17:48 | REPVR ---
PROCEDURE INFORMATION: Exam: CT Abdomen And Pelvis Without Contrast Exam date and time: 12/10/2019 5:26 PM Age: 69 years old Clinical indication: Other: Diarrhea; Additional info: Diarrhea/renal failure TECHNIQUE: Imaging protocol: Computed tomography of the abdomen and pelvis without contrast. Radiation optimization: All CT scans at this facility use at least one of these dose optimization techniques: automated exposure control; mA and/or kV adjustment per patient size (includes targeted exams where dose is matched to clinical indication); or iterative reconstruction. COMPARISON: CT ABD PELVIS W/O CONTRAST 12/31/2018 12:26 PM FINDINGS: Lungs: Calcified granuloma at the right lung base. Liver: Normal. No mass. Gallbladder and bile ducts: Normal. No calcified stones. No ductal dilation. Pancreas: Normal. No ductal dilation. Spleen: Normal. No splenomegaly. Adrenals: Normal. No mass. Kidneys and ureters: Normal. No hydronephrosis. Stomach and bowel: Unremarkable. No obstruction. No mucosal thickening. Appendix: No evidence of appendicitis. Intraperitoneal space: Unremarkable. No free air. No significant fluid collection. Vasculature: Atherosclerotic calcification of the abdominal aorta and bilateral iliac vessels. Lymph nodes: Unremarkable. No enlarged lymph nodes. Bladder: Unremarkable as visualized. Reproductive: Unremarkable as visualized. Bones/joints: Unremarkable. No acute fracture. Soft tissues: Bilateral inguinal hernias containing fat. IMPRESSION: No acute abdominal or pelvic abnormality. Electronically signed by: George Delatorre On 12/10/2019 17:48:05 PM
--- NOTE | 2019-12-10 18:00 | HPEPDOC ---
[facility] Medical History & Physical Date of Admission Dec 10, 2019 Date of Service: Dec 10, 2019 History and Physical CHIEF COMPLAINT: diarrhea HISTORY OF PRESENT ILLNESS: 69 yo male with PMHx duodenal perf 07/2018 s/p exlap repair, HTN, IDDM, BPH, EtOH abuse presents for one week history of diarrhea, possibly with blood, and dizziness. He denies shortness of breath, chest pain, headaches, neck pain, N/V, sick contacts or recent travel. PAST MEDICAL HISTORY: #duodenal perforation in July 2018 status post ex-lap repair #HTN #IDDM #BPH #EtOH ALLERGIES: Please see below. REVIEW OF SYSTEMS: Negative except as per HPI. HOME MEDICATIONS: Please see below. PHYSICAL EXAMINATION: VITAL SIGNS: See below General: NAD, lying comfortably in bed HEENT: NC/AT, EOMI Lungs: CTA B/L Heart: +S1S2, RRR Abd: soft, NT, +BS Ext: no edema Psych: flat affect LABORATORY DATA: See below. MICROBIOLOGY: Please see below. ASSESSMENT: 69 yo male with PMHx duodenal perf 07/2018 s/p exlap repair, HTN, IDDM, BPH, EtOH abuse presents for one week history of diarrhea, possibly with blood, and dizziness. #diarrhea - monitor electrolytes - check stool for poly, cdiff, O&P - IV fluids #dehydration - as above - IV fluid hydration #hyperkalemia - no ECG changes - calcium gluconate x1 #HTN #IDDM - CLD with sliding scale #BPH #EtOH - states he drink 2-3 drinks / week - EtOH levels normal #DVT prophylaxis Vital Signs Vital Signs Date Time Temp Pulse Resp B/P (MAP) Pulse Ox O2 Delivery O2 Flow Rate FiO2 12/10/19 16:40 97.2 75 16 98 Room Air Laboratory Data Labs 24H Laboratory Tests 2 12/10/19 17:00: POC Glucose (Misc Panel) 146H, POC Sodium (Misc Panel) 137, POC Potassium (Misc Panel) 6.1*H, POC Chloride (Misc Panel) 109, POC Total CO2 (Misc Panel) 17.0L, POC Blood Urea Nitrogen (Misc Panel 116H, POC Ionized Calcium (Misc Panel) 4.0L, POC Creatinine (Misc Panel) 9.2H, POC Hematocrit (Misc Panel) 37.0L, Lactic Acid Level 1.2 12/10/19 17:01: Immature Granulocyte % (Auto) 0.6, Neutrophils (%) (Auto) 74.0H, Lymphocytes (%) (Auto) 17.5L, Monocytes (%) (Auto) 7.0H, Eosinophils (%) (Auto) 0.7, Basophils (%) (Auto) 0.2, Neutrophils # (Auto) 12.4H, Lymphocytes # (Auto) 2.9, Monocytes # (Auto) 1.2H, Eosinophils # (Auto) 0.1, Basophils # (Auto) 0.0, Nucleated Red Blood Cells % (auto) 0.0 12/10/19 17:12: Prothrombin Time 15.2H, Prothromb Time International Ratio 1.23 12/10/19 17:13: Osmolality 337H CBC/BMP Laboratory Tests 12/10/19 17:01 Microbiology Microbiology 12/10/19 Blood Culture, Received Pending 12/10/19 Blood Culture, Received Pending Home Medications Scheduled Amlodipine Besylate (Amlodipine Besylate) 5 Mg Tablet, 7.5 MG PO DAILY Aspirin (Aspirin EC) 81 Mg Tab, 81 MG PO DAILY Atorvastatin Calcium (Atorvastatin Calcium) 40 Mg Tablet, 40 MG PO DAILY Cholecalciferol (Vitamin D3) (Vitamin D3) 1,000 Unit Tablet, 2,000 UNITS PO DAILY Duloxetine Hcl (Duloxetine HCl) 30 Mg Cap, 30 MG PO DAILY Finasteride (Finasteride) 5 Mg Tab, 5 MG PO DAILY Folic Acid (Folic Acid) 1 Mg Tab, 1 MG PO DAILY Insulin Human Lispro (Novolog) 100 Unit/1 Ml Vial, 1 DOSE SC AC PER SLIDING SCALE Levothyroxine Sodium (Levothyroxine Sodium) 25 Mcg Tab, 25 MCG PO DAILY Lisinopril (Lisinopril) 40 Mg Tablet, 20 MG PO DAILY Multivitamins (Thera M Plus Tablet) 1 Tab Tab, 1 TAB PO DAILY [place]-3 Fatty Acids/Fish Oil (Fish Oil 1,000 mg Capsule) 1 Each Capsule, 1,000 MG PO BID Omeprazole (Omeprazole) 20 Mg Capsule.dr, 20 MG PO DAILY Pregabalin (Lyrica) 300 Mg Capsule, 300 MG PO BID Sod Phos Di, [place]/K Phos [place] (K-Phos Neutral Tablet) 1 Tab Tab, 1 TAB PO DAILY Tamsulosin HCl (Flomax) 0.4 Mg Cap, 0.4 MG PO DAILY Scheduled PRN Acetaminophen (Acetaminophen) 500 Mg Tablet, 1,000 MG PO Q6H PRN for PAIN Zolpidem Tartrate (Zolpidem Tartrate) 10 Mg Tablet, 10 MG PO QHS PRN for SLEEP Miscellaneous Medications [Med Rec Comment] LIST VERIFIED [facility] [place] Allergies Coded Allergies: No Known Allergies (Unverified , 02/25/19) A-FIB/CHADSVASC A-FIB History Current/History of A-Fib/PAF?: No JOE WELSH MD Dec 10, 2019 18:00
[2019-12-10 18:03] LABS: ALBUMIN 3.2 GM/DL (3.2-5.2); BILIRUBIN,DIRECT 0.4 MG/DL (0.0-0.2); BILIRUBIN,TOTAL 0.8 MG/DL (0.2-1.0); CALCIUM LEVEL 8.7 MG/DL (8.8-10.2); CREATININE FOR GFR 8.29 MG/DL (0.70-1.30); GLOMERULAR FILTRATION RATE 6.9 (>49); MAGNESIUM LEVEL 2.4 MG/DL (1.8-2.4); PHOSPHORUS LEVEL 9.8 MG/DL (2.5-4.9); POTASSIUM SERUM 5.7 MEQ/L (3.5-5.1); TOTAL PROTEIN 6.9 GM/DL (6.4-8.2)
--- NOTE | 2019-12-10 18:11 | ECGEPIP ---
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
[2019-12-10] MEDS ORDERED: NICO4GUM PO (19:09)
[2019-12-10] MEDS ORDERED: PREV1.1G TEETH (19:09)
[2019-12-10] MEDS ORDERED: METF-839 PO (19:09)
[2019-12-10] MEDS ORDERED: OMEP1CAP73 PO (19:28)
[2019-12-10] MEDS ORDERED: AMLO5TAB6 PO (19:28)
[2019-12-10] MEDS ORDERED: LISI40TA PO (19:28)
[2019-12-10] MEDS ORDERED: ACET500T15 PO (19:28)
[2019-12-10] MEDS ORDERED: ATOR40TA75 PO (19:28)
[2019-12-10] MEDS ORDERED: ZOLP10TA2 PO (19:29)
[2019-12-10] MEDS ORDERED: VITAD1000T PO (19:29)
[2019-12-10] MEDS ORDERED: MED REC COMMENT (19:30)
[2019-12-10 21:30] VITALS: BP 120/66
[2019-12-10] MEDS: HEPARIN SOD (PORCINE) 5000UNITS/ML VIAL (J1644 PER 1000UNITS) SC SCH (22:00)
[2019-12-10] MEDS: NS 1,000 ML IV SCH (22:01)
[2019-12-11] VITALS: BP 133/60
[2019-12-11] MEDS: VANCOMYCIN ORAL SOL 250MG/5ML ORAL SYRINGE PO SCH ×4 (00:36→17:09)
[2019-12-11] MEDS: NS 1,000 ML IV SCH (02:20)
[2019-12-11 04:00] VITALS: BP 101/49
[2019-12-11] MEDS: HEPARIN SOD (PORCINE) 5000UNITS/ML VIAL (J1644 PER 1000UNITS) SC SCH ×3 (04:46→21:02)
[2019-12-11 05:22] LABS: HEMATOCRIT 31.9 % (42.0-52.0); HEMOGLOBIN 10.2 g/dl (13.5-17.5); MEAN CORPUSCULAR HEMOGLOBIN 29.1 pg (27.0-33.0); MEAN CORPUSCULAR VOLUME 91.1 fl (80.0-96.0); PLATELET COUNT, AUTOMATED 236 10^3/uL (150-450); WHITE BLOOD COUNT 11.4 10^3/uL (4.0-10.0)
[2019-12-11 05:49] LABS: ALBUMIN 2.5 GM/DL (3.2-5.2); BILIRUBIN,TOTAL 0.6 MG/DL (0.2-1.0); CREATININE FOR GFR 4.08 MG/DL (0.70-1.30); GLOMERULAR FILTRATION RATE 15.6 (>49); MAGNESIUM LEVEL 1.9 MG/DL (1.8-2.4); POTASSIUM SERUM 4.5 MEQ/L (3.5-5.1); TOTAL PROTEIN 5.6 GM/DL (6.4-8.2)
[2019-12-11 08:00] VITALS: BP 110/65
--- NOTE | 2019-12-11 08:21 | IPNPDOC ---
Text Note Date of Service The patient was seen on 12/11/19. NOTE Subjective: Patient seen and examined at bedside. His stool did return +CDiff overnight, and was started on vancomycin. This morning he voices no medical complaints, denies abdominal pain. Objective: VITAL SIGNS: See below General: NAD, lying comfortably in bed HEENT: NC/AT, EOMI Lungs: CTA B/L Heart: +S1S2, RRR Abd: soft, NT, +BS Ext: no edema Psych: flat affect A/P: 69 yo male with PMHx duodenal perf 07/2018 s/p exlap repair, HTN, IDDM, BPH, EtOH abuse presents for one week history of diarrhea, possibly with blood, and dizziness, found to be +CDiff #diarrhea/CDiff+ - continue PO Vanco - monitor electrolytes - IV fluids #dehydration/FABIAN - improving - as above - IV fluid hydration #hypernatremia - change IV fluids to D51/2NS today #hyperkalemia - resolved - no ECG changes - calcium gluconate x1 #HTN - continue home Rx #hypothyroidism #IDDM - CLD - advance as tolerated - insulin sliding scale #BPH - continue home Rx #EtOH - states he drink 2-3 drinks / week - EtOH levels normal on admission - watch for withdrawal symptoms #DVT prophylaxis VS,Fishbone, I+O VS, Fishbone, I+O Laboratory Tests 12/10/19 17:01 12/10/19 17:13 12/11/19 04:42 Vital Signs Date Time Temp Pulse Resp B/P (MAP) Pulse Ox O2 Delivery O2 Flow Rate FiO2 12/11/19 04:00 96.8 57 18 101/49 (66) 97 Room Air I&O- Last 24 Hours up to 6 AM 12/11/19 06:00 Intake Total 3690 ml Output Total 50 ml Balance 3640 ml JOE WELSH MD Dec 11, 2019 08:21
[2019-12-11] MEDS: D5W/0.45% SODIUM CHLORIDE 1,000 ML IV SCH ×2 (09:01→18:27)
[2019-12-11 09:53] LABS: POTASSIUM RANDOM URINE 15.7 MEQ/L; TOTAL PROTEIN,RANDOM URINE 50.7 MG/DL (0.0-12.0)
[2019-12-11 12:00] VITALS: BP 110/58
[2019-12-11] MEDS ORDERED: GLUCOSE 4GM CHEW TABLET PO PRN (13:30)
[2019-12-11] MEDS ORDERED: DEXTROSE 50% 50 ML SYRINGE IV PRN (13:30)
[2019-12-11] MEDS ORDERED: GLUCAGON INJ 1MG VIAL SC PRN (13:30)
[2019-12-11] MEDS ORDERED: ACETAMINOPHEN 500 MG TAB PO PRN (13:30)
[2019-12-11] MEDS: MULTIVITAMINS/MINERALS THERAP 1 TAB PO SCH (13:41)
[2019-12-11] MEDS: lisinopriL 40 MG TAB PO SCH (13:43)
[2019-12-11] MEDS: FOLIC ACID 1 MG TAB PO SCH (13:44)
[2019-12-11] MEDS: DULoxetine 30 MG CAP (CYMBALTA) PO SCH (13:44)
[2019-12-11] MEDS: OMEPRAZOLE 20 MG CAP PO SCH (13:44)
[2019-12-11] MEDS: TAMSULOSIN 0.4 MG CAP PO SCH (13:45)
[2019-12-11] MEDS: VITAMIN D 1,000 INTERNATIONAL UNITS TABLET PO SCH (13:45)
[2019-12-11] MEDS: ASPIRIN 81 MG ENTERIC TAB PO SCH (13:45)
[2019-12-11] MEDS: amLODIPine 5 MG TAB PO SCH (13:46)
[2019-12-11] MEDS: FINASTERIDE 5 MG TAB PO SCH (13:47)
[2019-12-11 13:57] LABS: THYROID STIMULATING HORMONE 1.34 uIU/ML (0.358-3.740)
[2019-12-11] MEDS ORDERED: PILL CUTTER 1 EACH XX PRN (15:45)
[2019-12-11 16:00] VITALS: BP 130/68
[2019-12-11] MEDS: HumaLOG INSULIN (NovoLOG) PER UNIT SC SCH ×2 (17:09→21:00)
[2019-12-11 20:00] VITALS: BP 98/51
[2019-12-11] MEDS: PREGABALIN 100 MG CAP (LYRICA) PO SCH (21:00)
[2019-12-12] VITALS (7 sets, daily range): BP systolic 90–144; BP diastolic 58–82
[2019-12-12] MEDS: VANCOMYCIN ORAL SOL 250MG/5ML ORAL SYRINGE PO SCH ×5 (00:07→23:50)
[2019-12-12 05:23] LABS: BASO # 0.1 10^3/uL (0.0-0.2); BASO % 0.6 % (0.0-1.0); EOS # 0.8 10^3/uL (0.0-0.5); HEMATOCRIT 29.7 % (42.0-52.0); HEMOGLOBIN 9.1 g/dl (13.5-17.5); LYMPH # 3.4 10^3/uL (1.5-5.0); LYMPH % 35.9 % (24.0-44.0); MEAN CORPUSCULAR HEMOGLOBIN 28.3 pg (27.0-33.0); MEAN CORPUSCULAR HGB CONC 30.6 g/dl (32.0-36.5); MEAN CORPUSCULAR VOLUME 92.2 fl (80.0-96.0); MONO # 0.7 10^3/uL (0.0-0.8); MONO % 7.9 % (0.0-5.0); NEUTROPHILS # 4.4 10^3/uL (1.5-8.5); NEUTROPHILS % 47.2 % (36.0-66.0); PLATELET COUNT, AUTOMATED 216 10^3/uL (150-450); RED BLOOD COUNT 3.22 10^6/uL (4.30-6.10); WHITE BLOOD COUNT 9.3 10^3/uL (4.0-10.0)
[2019-12-12] MEDS: D5W/0.45% SODIUM CHLORIDE 1,000 ML IV SCH (05:41)
[2019-12-12] MEDS: LEVOTHYROXINE 25MCG TABLET (0.025MG) PO SCH (05:42)
[2019-12-12] MEDS: HEPARIN SOD (PORCINE) 5000UNITS/ML VIAL (J1644 PER 1000UNITS) SC SCH ×3 (05:46→21:23)
[2019-12-12 05:48] LABS: ALBUMIN 2.4 GM/DL (3.2-5.2); BILIRUBIN,TOTAL 0.4 MG/DL (0.2-1.0); CALCIUM LEVEL 8.4 MG/DL (8.8-10.2); CREATININE FOR GFR 1.39 MG/DL (0.70-1.30); GLOMERULAR FILTRATION RATE 54.1 (>49); POTASSIUM SERUM 4.9 MEQ/L (3.5-5.1); TOTAL PROTEIN 5.4 GM/DL (6.4-8.2)
--- NOTE | 2019-12-12 07:04 | IPNPDOC ---
Text Note Date of Service The patient was seen on 12/12/19. NOTE TIME OF SERVICE: 817AM Subjective: No acute overnight events. He is having less BMs. Objective: GEN: NAD HEENT: NACT CVS: RRR/NMRG LUNGS:CTAB on RA ABD: soft &NT NEURO: speech not dysarthric PSYCH:A&O x3 Vitals and labs: see below Assessment: Mr. Lee is a 69 yr old M w a PMH of duodenal perf s/p exlap repair, HTN, IDDM, BPH,& EtOH abuse who is admitted for management of C.diff colitis; his course was complicated by FABIAN Plan: 1. C Diff Colitis. Based on presence of a WBC # >15 and Cr >1.5 he initially met the criteria for severe C.diff but is improving and now meets the criteria to be classified as mild c.diff. - c/w PO Vancomycin day #09/14 2. FABIAN / Dehydration 2/2 diarrhea. Resolving - IVF/ trend BMP 3. Hypernatremia likely 2/2 dehydration. - switch from D5 0.45% @90 ml/H to D5W @ 70ml/H 4. NN Anemia - f/u iron studies & trend Hg 5. Bradycardia likely 2/2 amlodipine - monitor vitals & for symptoms 6. Hyperkalemia. Resolved. 7. Chronic HTN - amlodipine, lisinopril 8. Hypothyroidism- levothyroxine 9. DM2- SSI / hypoglycemia protocol / f/u FSBS & A1C 10. BPH - finasteride and tamsulosin 11. Alcohol Abuse - fall and seizure precautions / CIWA protocol DVT prophylaxis w Heparin LATE ENTRY # Pleuritic Chest pain. Occurred during physical therapy. EKG showed sinus bradycardia w a rate of 56 and the Troponin was wnl. - acetaminophen PRN # Intermittent Dyspnea. BNP was elevated - f/u chest xray and Echo # Neck pain. Lidocane patch VS,Fishbone, I+O VS, Fishbone, I+O Laboratory Tests 12/12/19 03:43 Vital Signs Date Time Temp Pulse Resp B/P (MAP) Pulse Ox O2 Delivery O2 Flow Rate FiO2 12/12/19 04:00 96.8 53 18 132/68 (89) 97 12/12/19 00:00 Room Air I&O- Last 24 Hours up to 6 AM 12/12/19 06:00 Intake Total 3110 ml Output Total 150 ml Balance 2960 ml TIMOTHY PHIPPS MD Dec 12, 2019 07:04
[2019-12-12 07:44] LABS: PERCENT SATURATION 12.1 % (19.7-50.0)
[2019-12-12] MEDS: FINASTERIDE 5 MG TAB PO SCH (08:26)
[2019-12-12] MEDS: HumaLOG INSULIN (NovoLOG) PER UNIT SC SCH ×4 (08:26→21:00)
[2019-12-12] MEDS: VITAMIN D 1,000 INTERNATIONAL UNITS TABLET PO SCH (08:26)
[2019-12-12] MEDS: ATORVASTATIN 20 MG TAB PO SCH (08:26)
[2019-12-12] MEDS: ASPIRIN 81 MG ENTERIC TAB PO SCH (08:26)
[2019-12-12] MEDS: amLODIPine 5 MG TAB PO SCH (08:31)
[2019-12-12] MEDS: OMEPRAZOLE 20 MG CAP PO SCH (08:32)
[2019-12-12] MEDS: PREGABALIN 100 MG CAP (LYRICA) PO SCH ×2 (08:32→21:23)
[2019-12-12] MEDS: TAMSULOSIN 0.4 MG CAP PO SCH (08:33)
[2019-12-12] MEDS: DULoxetine 30 MG CAP (CYMBALTA) PO SCH (08:33)
[2019-12-12] MEDS: FOLIC ACID 1 MG TAB PO SCH (08:33)
[2019-12-12] MEDS: lisinopriL 40 MG TAB PO SCH (08:33)
[2019-12-12] MEDS: MULTIVITAMINS/MINERALS THERAP 1 TAB PO SCH (08:33)
[2019-12-12] MEDS ORDERED: LORazepam 2 MG TAB PO PRN (13:15)
[2019-12-12 14:00] LABS: HEMOGLOBIN A1c 8.5 %
[2019-12-12 14:04] LABS: NT-PRO BNP 2109 PG/ML (<125); TROPONIN I < 0.02 NG/ML (< 0.10)
[2019-12-12] MEDS: THIAMINE 100 MG TAB PO SCH ×2 (14:08→21:23)
[2019-12-12] MEDS: D5W 1,000 ML IV SCH (14:09)
[2019-12-12] MEDS: ALBUTEROL SULFATE 2.5 MG/0.5 ML INH NEB SOLN NEB SCH (15:17)
--- NOTE | 2019-12-12 15:53 | ECGEPIP ---
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
[2019-12-12] MEDS: LIDOCAINE 5% (LIDODERM) PATCH TD SCH (18:30)
[2019-12-12] MEDS: **NOTE PATIENT COMMENT** MISC XX SCH (23:50)
[2019-12-13] MEDS: D5W 1,000 ML IV SCH (04:49)
[2019-12-13] MEDS: HEPARIN SOD (PORCINE) 5000UNITS/ML VIAL (J1644 PER 1000UNITS) SC SCH ×3 (05:47→20:54)
[2019-12-13] MEDS: VANCOMYCIN ORAL SOL 250MG/5ML ORAL SYRINGE PO SCH ×4 (05:47→23:43)
[2019-12-13] MEDS: LEVOTHYROXINE 25MCG TABLET (0.025MG) PO SCH (05:47)
[2019-12-13 06:00] VITALS: BP_SYST 112; BP_DIAS 54; BP_DIAS 59
[2019-12-13 06:28] LABS: BASO # 0.1 10^3/uL (0.0-0.2); BASO % 1.2 % (0.0-1.0); EOS % 11.4 % (0.0-3.0); HEMATOCRIT 30.3 % (42.0-52.0); HEMOGLOBIN 9.4 g/dl (13.5-17.5); LYMPH % 35.5 % (24.0-44.0); MEAN CORPUSCULAR HEMOGLOBIN 28.9 pg (27.0-33.0); MEAN CORPUSCULAR VOLUME 93.2 fl (80.0-96.0); MONO # 0.5 10^3/uL (0.0-0.8); NEUTROPHILS # 3.8 10^3/uL (1.5-8.5); NEUTROPHILS % 45.3 % (36.0-66.0); PLATELET COUNT, AUTOMATED 227 10^3/uL (150-450); RED BLOOD COUNT 3.25 10^6/uL (4.30-6.10); WHITE BLOOD COUNT 8.4 10^3/uL (4.0-10.0)
[2019-12-13 06:47] LABS: BLOOD UREA NITROGEN 37 MG/DL (7-18); CALCIUM LEVEL 8.6 MG/DL (8.8-10.2); CARBON DIOXIDE LEVEL 19 MEQ/L (21-32); CHLORIDE LEVEL 117 MEQ/L (98-107); CREATININE FOR GFR 1.05 MG/DL (0.70-1.30); GLOMERULAR FILTRATION RATE > 60.0 (>49); GLUCOSE, FASTING 191 MG/DL (70-100); POTASSIUM SERUM 4.8 MEQ/L (3.5-5.1); SODIUM LEVEL 144 MEQ/L (136-145)
[2019-12-13] MEDS: ALBUTEROL SULFATE 2.5 MG/0.5 ML INH NEB SOLN NEB SCH ×5 (07:30→20:26)
[2019-12-13] MEDS: HumaLOG INSULIN (NovoLOG) PER UNIT SC SCH ×4 (08:14→20:54)
[2019-12-13] MEDS: ASPIRIN 81 MG ENTERIC TAB PO SCH (08:14)
[2019-12-13] MEDS: LIDOCAINE 5% (LIDODERM) PATCH TD SCH (08:15)
[2019-12-13] MEDS: VITAMIN D 1,000 INTERNATIONAL UNITS TABLET PO SCH (08:15)
[2019-12-13] MEDS: FOLIC ACID 1 MG TAB PO SCH (08:18)
[2019-12-13] MEDS: THIAMINE 100 MG TAB PO SCH (08:18)
[2019-12-13] MEDS: amLODIPine 5 MG TAB PO SCH (08:18)
[2019-12-13] MEDS: OMEPRAZOLE 20 MG CAP PO SCH (08:18)
[2019-12-13] MEDS: DULoxetine 30 MG CAP (CYMBALTA) PO SCH (08:18)
[2019-12-13] MEDS: MULTIVITAMINS/MINERALS THERAP 1 TAB PO SCH (08:18)
[2019-12-13] MEDS: TAMSULOSIN 0.4 MG CAP PO SCH (08:18)
[2019-12-13] MEDS: FINASTERIDE 5 MG TAB PO SCH (08:18)
[2019-12-13] MEDS: PREGABALIN 100 MG CAP (LYRICA) PO SCH ×2 (08:19→20:55)
[2019-12-13] MEDS: lisinopriL 40 MG TAB PO SCH (08:19)
[2019-12-13] MEDS: ATORVASTATIN 20 MG TAB PO SCH (08:19)
[2019-12-13 10:09] LABS: MAGNESIUM LEVEL 1.1 MG/DL (1.8-2.4); TROPONIN I < 0.02 NG/ML (< 0.10)
[2019-12-13] MEDS: MAGNESIUM OXIDE 400 MG TAB (MAG-OX) PO SCH ×4 (11:12→17:32)
[2019-12-13 14:00] VITALS: BP 112/68
[2019-12-13] MEDS: PENCICLOVIR 1% CREAM 5GM TOP SCH ×6 (14:44→23:44)
--- NOTE | 2019-12-13 16:25 | ECGEPIP ---
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 Electronically Signed on 12-13-2019 16:25:34 EDT by Alcides Thompson
--- NOTE | 2019-12-13 18:01 | IPNPDOC ---
Text Note Date of Service The patient was seen on 12/13/19. NOTE TIME OF SERVICE: 12 PM Subjective: This morning the patient is complaining of intermittent headache at the back of his head that he's had for several months; he has a history but admits to not always taking his antihypertensives. He has had left arm weakness after having a fall about a month ago and was doing physical therapy but stopped doing his exercises at home. During his hospital stay he has noticed that his left arm is more weak. Objective: GEN: NAD HEENT: NACT CVS: RRR/NMRG CHEST: crepitus with palpation of the chest wall. LUNGS:CTAB on RA ABD: soft &NT NEURO: speech not dysarthric PSYCH:A&O x3 Vitals and labs: see below Assessment: Mr. Lee is a 69 yr old M w a PMH of duodenal perf s/p exlap repair, HTN, IDDM, BPH,& EtOH abuse who is admitted for management of C.diff colitis; his course was complicated by FABIAN, new onset Afib Plan: 1. C Diff Colitis. Improving. - c/w PO Vancomycin day #10/15 2. FABIAN / Dehydration 2/2 diarrhea. Resolved - d/c IVF 3. Intermittent Dyspnea possibly 2/2 paroxysmal A Fib. Afib may be due to alcohol use. Trops, K, TSH wnl today. Mag was low and BNP was high- telemetry / f/u Echo to confirm CHADSVASC2 Score prior to selecting nursing home AC 4. Palpable chest crepitus. Cause TBD. - f/u CT chest 5. ROBY - start PO Iron when ready to be discharged 6. Asymptomatic Bradycardia likely 2/2 amlodipine - monitor vitals & for s ymptoms 7. Chronic HTN. His AVILA are likely 2/2 non-compliance with his meds at home - amlodipine, lisinopril / acetaminophen for AVILA 8. Hypernatremia likely 2/2 dehydration. Resolved - d/c IVF 9. Hyperkalemia. Resolved. 10. DM2- SSI / hypoglycemia protocol / f/u FSBS & A1C 11. BPH - finasteride and tamsulosin 12. Alcohol Abuse - fall and seizure precautions / CIWA protocol 13. Hypothyroidism- levothyroxine 14. Chronic Left Arm Weakness. Occurred after he had a fall over a month ago. - PT consult to see if he qualifies for home PT DVT prophylaxis w Heparin DISPO: d/c planning within then next day or so / PFS consult has been placed VS,Terrancebonblanka, I+O VS, Fishbone, I+O Laboratory Tests 12/13/19 05:52 Vital Signs Date Time Temp Pulse Resp B/P (MAP) Pulse Ox O2 Delivery O2 Flow Rate FiO2 12/13/19 14:00 97.6 82 15 112/68 (83) 98 Room Air l I&O- Last 24 Hours up to 6 AM 12/13/19 06:00 Intake Total 2840 ml Output Total 650 ml Balance 2190 ml TIMOTHY PHIPPS MD Dec 13, 2019 18:01
--- NOTE | 2019-12-13 18:17 | REPVR ---
PROCEDURE INFORMATION: Exam: CT Chest Without Contrast Exam date and time: 12/13/2019 5:17 PM Age: 69 years old Clinical indication: Chest pain; Additional info: Creptitus on palpation of chest / PT C/O of chest pain TECHNIQUE: Imaging protocol: Computed tomography of the chest without contrast. 3D rendering: MIP and/or 3D reconstructed images were created by the technologist. Radiation optimization: All CT scans at this facility use at least one of these dose optimization techniques: automated exposure control; mA and/or kV adjustment per patient size (includes targeted exams where dose is matched to clinical indication); or iterative reconstruction. COMPARISON: CT Chest without contrast 01/09/2017 3:18 PM FINDINGS: Lungs: Minimal atelectasis in the lingula and at right lung base. Pleural space: Trace right pleural effusion. Heart: Coronary vasculature calcifications. Aorta: Unremarkable. No aortic aneurysm. Lymph nodes: Unremarkable. No enlarged lymph nodes. Adrenals: 1.5 cm right adrenal nodule. Bones/joints: Old fracture deformity of the left humeral head. Old multiple right posterior rib fractures. Acute compression fracture of the T3 vertebra at the superior endplate with the approximately 10% vertebral height loss. No retropulsion. Soft tissues: Unremarkable. IMPRESSION: Trace right pleural effusion. Minimal atelectasis in the lingula and at right lung base. Indeterminate 1.5 cm right adrenal nodule. Acute fracture of the superior endplate of T3 vertebra with approximately 10% vertebral height loss. No retropulsion. Electronically signed by: George Delatorre On 12/13/2019 18:16:54 PM
[2019-12-13] MEDS: **NOTE PATIENT COMMENT** MISC XX SCH (20:54)
[2019-12-13 22:00] VITALS: BP 109/68
[2019-12-13] MEDS: zolPIDEM TARTRATE 5 MG TAB PO PRN (23:43)
[2019-12-14] MEDS: PENCICLOVIR 1% CREAM 5GM TOP SCH ×11 (02:23→22:35)
[2019-12-14 06:00] VITALS: BP 135/68
[2019-12-14] MEDS: HEPARIN SOD (PORCINE) 5000UNITS/ML VIAL (J1644 PER 1000UNITS) SC SCH ×2 (06:00→14:42)
[2019-12-14] MEDS: VANCOMYCIN ORAL SOL 250MG/5ML ORAL SYRINGE PO SCH ×3 (06:00→18:05)
[2019-12-14] MEDS: LEVOTHYROXINE 25MCG TABLET (0.025MG) PO SCH (06:00)
[2019-12-14 06:44] LABS: BASO # 0.1 10^3/uL (0.0-0.2); BASO % 1.2 % (0.0-1.0); EOS % 10.3 % (0.0-3.0); HEMATOCRIT 28.9 % (42.0-52.0); HEMOGLOBIN 8.9 g/dl (13.5-17.5); LYMPH % 32.5 % (24.0-44.0); MEAN CORPUSCULAR HEMOGLOBIN 29.1 pg (27.0-33.0); MEAN CORPUSCULAR HGB CONC 30.8 g/dl (32.0-36.5); MEAN CORPUSCULAR VOLUME 94.4 fl (80.0-96.0); MONO # 0.6 10^3/uL (0.0-0.8); MONO % 6.1 % (0.0-5.0); NEUTROPHILS # 4.5 10^3/uL (1.5-8.5); NEUTROPHILS % 48.7 % (36.0-66.0); PLATELET COUNT, AUTOMATED 236 10^3/uL (150-450); RED BLOOD COUNT 3.06 10^6/uL (4.30-6.10); WHITE BLOOD COUNT 9.3 10^3/uL (4.0-10.0)
[2019-12-14 07:08] LABS: BLOOD UREA NITROGEN 24 MG/DL (7-18); CALCIUM LEVEL 8.3 MG/DL (8.8-10.2); CARBON DIOXIDE LEVEL 22 MEQ/L (21-32); CHLORIDE LEVEL 117 MEQ/L (98-107); CREATININE FOR GFR 1.03 MG/DL (0.70-1.30); GLOMERULAR FILTRATION RATE > 60.0 (>49); GLUCOSE, FASTING 167 MG/DL (70-100); POTASSIUM SERUM 5.1 MEQ/L (3.5-5.1); SODIUM LEVEL 144 MEQ/L (136-145)
[2019-12-14] MEDS: ALBUTEROL SULFATE 2.5 MG/0.5 ML INH NEB SOLN NEB SCH ×3 (08:00→23:35)
[2019-12-14] MEDS: PREGABALIN 100 MG CAP (LYRICA) PO SCH ×2 (08:49→20:17)
[2019-12-14] MEDS: VITAMIN D 1,000 INTERNATIONAL UNITS TABLET PO SCH (08:49)
[2019-12-14] MEDS: LIDOCAINE 5% (LIDODERM) PATCH TD SCH (08:49)
[2019-12-14] MEDS: HumaLOG INSULIN (NovoLOG) PER UNIT SC SCH ×4 (08:50→20:17)
[2019-12-14] MEDS: FINASTERIDE 5 MG TAB PO SCH (08:50)
[2019-12-14] MEDS: ASPIRIN 81 MG ENTERIC TAB PO SCH (08:50)
[2019-12-14] MEDS: OMEPRAZOLE 20 MG CAP PO SCH (08:50)
[2019-12-14] MEDS: MULTIVITAMINS/MINERALS THERAP 1 TAB PO SCH (08:50)
[2019-12-14] MEDS: TAMSULOSIN 0.4 MG CAP PO SCH (08:50)
[2019-12-14] MEDS: FOLIC ACID 1 MG TAB PO SCH (08:50)
[2019-12-14] MEDS: ATORVASTATIN 20 MG TAB PO SCH (08:50)
[2019-12-14] MEDS: DULoxetine 30 MG CAP (CYMBALTA) PO SCH (08:50)
[2019-12-14] MEDS: amLODIPine 5 MG TAB PO SCH (08:56)
[2019-12-14] MEDS: lisinopriL 40 MG TAB PO SCH (08:57)
--- NOTE | 2019-12-14 11:49 | REP ---
REASON FOR EXAM: Chest pain. LATEST PRIOR FOR COMPARISON: 01/01/[address] by Dr. Judd. Cardiomediastinal silhouette and lung bangura are unchanged. There is evidence of an age undermined fracture involving the right 6th rib. This is difficult to evaluate on this limited portable examination of the chest. There are no new abnormal parenchymal opacities. The pleural angles are sharp and the heart is not enlarged. IMPRESSION: Possible rib fracture, age undetermined, as described above. Old healed left-sided rib fractures are noted, status quo. Electronically Signed by Ian Castaneda DO 12/14/2019 03:14 P
[2019-12-14 12:02] LABS: MAGNESIUM LEVEL 1.1 MG/DL (1.8-2.4)
[2019-12-14 14:00] VITALS: BP 110/64
--- NOTE | 2019-12-14 17:12 | IPNPDOC ---
Text Note Date of Service The patient was seen on 12/14/19. NOTE TIME OF SERVICE: 1000am Subjective: This morning the patient denies having additional episodes of diarrhea. He continues to have mid upper back pain, but denies having any headac hes over the last 24H. Objective: GEN: NAD HEENT: NACT CVS: RRR/NMRG CHEST: crepitus with palpation of the chest wall. LUNGS:CTAB on RA ABD: soft &NT NEURO: speech not dysarthric PSYCH:A&O x3 / able to understand and follow all commands Vitals and labs: see below Assessment: Mr. Lee is a 69 yr old M w a PMH of duodenal perf s/p exlap repair, HTN, IDDM, BPH,& EtOH abuse who is admitted for management of C.diff colitis; his course was complicated by FABIAN, new onset Afib Plan: 1. C Diff Colitis. Improving. - c/w PO Vancomycin day #11/14 2. FBAIAN / Dehydration 2/2 diarrhea. Resolved 3. Hypernatremia likely 2/2 dehydration. Resolved 4. Hyperkalemia & Hypomagnesemia. Resolved. 5.Acute T3 fracture. His back pain is likely 2/2 the fracture. His last fall was 1 month ago - f/u w 6. Paroxysmal A Fib. His intermittent episodes of dyspnea were possibly 2/2 A Fib. The Afib may be due to alcohol use. I reviewed the EKGs. His Trops, K, TSH were wnl today. Mag was low and was repleted. His BNP was high. - c/w telemetry / f/u Echo to confirm CHADSVASC2 Score prior determining if he needs mcc AC 7. Asymptomatic Bradycardia likely 2/2 amlodipine - monitor vitals & for symptom s 8. Adrenal Incidentaloma. It is 1.5 cm. Per d/w the radiologist manager valuation it is about 2HU, elongated and oval in shape and hasn't changed much in size over the last year. - bc he is c/o of intermittent headaches will screen for Pheo with plasma fractionated metanephrines and screen for Frankie's with dexamethasone suppression test 7. Iron Def Anemia - start PO Iron once c.diff infection has resolved 8. Chronic HTN. His AVILA may be due to 2/2 non-compliance with his meds at home - amlodipine, lisinopril / acetaminophen for AVILA 9. DM2( A1c 8.5%) - f/u FSBS / SSI / hypoglycemia protocol 10. BPH - finasteride and tamsulosin 11. Alcohol Abuse - fall and seizure precautions / CIWA protocol 12. Hypothyroidism- levothyroxine 13. Chronic Left Arm Weakness. Occurred after he had a fall resulting in a fracture over a month ago. - PT consult to see if he qualifies for home PT 14. Old rib fractures. These were visulize on CT of the chest. This is likely the cause of the palpable chest crepitus and his c/o of feeling like "bones are moving" in his chest - acetaminophen PRN for pain DVT prophylaxis w Heparin DISPO: d/c planning possibly on Sat or Sat pending Echo results , and Ortho eval / PFS consult has been placed for meals on wheels, home health aide ect VS,Fishbone, I+O VS, Fishbone, I+O Laboratory Tests 12/14/19 06:28 Vital Signs Date Time Temp Pulse Resp B/P (MAP) Pulse Ox O2 Delivery O2 Flow Rate FiO2 12/14/19 14:00 97.4 68 18 110/64 (79) 94 Room Air I&O- Last 24 Hours up to 6 AM 12/14/19 06:00 Intake Total 1400 ml Output Total 2150 ml Balance -750 ml TIMOTHY PHIPPS MD Dec 14, 2019 17:12
[2019-12-14] MEDS: **NOTE PATIENT COMMENT** MISC XX SCH (20:17)
--- NOTE | 2019-12-14 20:18 | CR ---
DATE OF CONSULTATION: 12/14/2019 ATTENDING PHYSICIAN: Dr. Nayla Sears CHIEF COMPLAINT: Neck and left shoulder pain. HISTORY: This is a 69-year-old male patient who was admitted through the emergency department after 1 week of diarrhea, blood in the stool and dizziness. He is a somewhat unclear historian and reports a fall months ago landing on his left shoulder, which he states that he fractured. He has been seen by [facility] and denies any surgical intervention for this fracture. He has a history of duodenal perforation in 2019, hypertension, insulin-dependent diabetes, benign prostatic hyperplasia and alcohol abuse. He denies any significant pain in the upper back but reports that he does have neck pain. Denies any weakness, numbness, tingling or paresthesias. Denies any difficulty with ambulation. Upon obtaining a CT scan of the chest, the patient was found to have a compression-type fracture of the superior endplate of T3. The patient was found to have Clostridium difficile (C diff) and admitted to the hospital. MEDICATIONS: - amlodipine 5 mg; 7.5 by mouth daily - aspirin 81 mg by mouth daily - atorvastatin calcium 40 mg by mouth daily - vitamin D3 1000 international units (IU) two twice a day - duloxetine 30 mg one by mouth daily - finasteride 5 mg one by mouth daily - folic acid 1 mg one by mouth daily - insulin - levothyroxine 25 mcg one by mouth daily - lisinopril 40 mg on by mouth daily - omeprazole 20 mg one by mouth daily - multivitamin one by mouth daily - Lyons-3 fatty acid fish oil one by mouth twice a day - Lyrica 300 mg one by mouth twice a day - K-Phos one by mouth daily - Flomax 0.4 mg one by mouth daily REVIEW OF SYSTEMS: Denies fever, chills, chest pain, shortness of breath. Does report dizziness and diarrhea. Denies back pain, weakness, numbness, tingling or paresthesias. ALLERGIES: No known drug allergies. PAST SURGICAL HISTORY: Noncontributory. PHYSICAL EXAMINATION: Vital signs: Temperature 97.4, pulse 68, respirations 18, blood pressure 110/64, pulse oximetry 94% on room air. He is normocephalic, atraumatic, in no apparent distress with appropriate mood and affect. Neck is supple and nontender with no lymphadenopathy or jugular venous distention (JVD). There is some tenderness to palpation in the left upper trapezius musculature. The left shoulder has positive Neer and positive Quinn, full passive range of motion but difficulty with abduction past 90 degrees. Bilateral upper extremities show intact neurovascular status. The thoracic spine is nontender to palpation. Bilateral lower extremities show 5/5 strength, intact neurovascular status. The patient has intact deep tendon reflexes (DTRs), no clonus. Review of chest x-ray reveals old healed left-sided rib fractures and possible fracture of the right 6th rib. Chest CT reveals trace right pleural effusion, atelectasis in the right lung base, 1.5 cm adrenal nodule, fracture of the superior endplate of T3 vertebra with approximately 10% vertebral height loss and no retropulsion. IMPRESSION: 1. T3 compression fracture, age indeterminate. At this point, the patient is not demonstrating any neuropathic signs or symptoms and is nontender over the thoracic vertebrae. I would like him to follow up in our office for continued surveillance x-rays with Dr. Hubert Portillo. 2. Clostridium difficile. Patient being managed by medicine. 3. Left shoulder chronic discomfort. Again, I would like him to follow up in our office for further evaluation and treatment of this.
--- NOTE | 2019-12-14 21:45 | ECHO ---
DATE OF PROCEDURE: 12/14/2019 REFERRING PHYSICIAN: Dr. Leah Malhotra INDICATION: Dyspnea. HEIGHT: 71 inches WEIGHT: 84.8 kg 2D MEASUREMENTS: Left atrium: 3.5 cm Ventricular septum: 0.86 cm Posterior wall: 0.96 cm Left ventricle diastole: 4.8 cm Aortic root: 3.3 cm Aortic annulus: 2.4 cm Inferior vena cava: 2.0 cm with more than 50% respiratory variation. DOPPLER MEASUREMENTS: No aortic stenosis. No aortic regurgitation. Aortic valve velocity: 222 cm/s LVOT velocity: 90.7 cm/s No mitral regurgitation. No mitral stenosis. Mitral E velocity: 81.4 cm/s Mitral A velocity: 70.7 cm/s Mitral deceleration time: 209 ms Very mild tricuspid regurgitation. No pulmonic regurgitation. Pulmonary acceleration time: 114 ms MITRAL ANNULAR TISSUE DOPPLER: E prime septal: 8.05 cm/s E prime lateral: 10.2 cm/s DESCRIPTION: Rhythm was sinus rhythm and sinus bradycardia observed. Image quality was fair. No pericardial effusion. This was a 2D, M-mode, color flow Doppler and pulse wave Doppler examination and included mitral annular tissue Doppler. CONCLUSIONS: 1. Moderate aortic valve sclerosis of a 3-cusp aortic valve. No aortic stenosis or regurgitation. 2. Normal left ventricle internal dimensions and wall thickness. Normal regional left ventricular (LV) wall motion and wall thickening. Normal LV systolic function. Left ventricular ejection fraction (LVEF) 60% by visual estimate. Normal LV diastolic function. 3. Suggestive of normal pulmonary artery systolic pressure and central venous pressure. 4. Otherwise normal appearing echocardiogram Doppler findings. ADDITIONAL COMMENTS AND RECOMMENDATIONS: Recommend a followup echocardiogram-Doppler in 3 years to follow progression of aortic valve disease.
[2019-12-14 22:00] VITALS: BP 137/68
[2019-12-15] MEDS: PENCICLOVIR 1% CREAM 5GM TOP SCH ×9 (00:04→16:31)
[2019-12-15] MEDS: VANCOMYCIN ORAL SOL 250MG/5ML ORAL SYRINGE PO SCH ×3 (00:04→12:29)
[2019-12-15] MEDS: zolPIDEM TARTRATE 5 MG TAB PO PRN (00:04)
[2019-12-15 06:00] VITALS: BP 145/81
[2019-12-15] MEDS: LEVOTHYROXINE 25MCG TABLET (0.025MG) PO SCH (06:12)
[2019-12-15] MEDS: ALBUTEROL SULFATE 2.5 MG/0.5 ML INH NEB SOLN NEB SCH (07:36)
[2019-12-15 08:07] LABS: HEMATOCRIT 30.4 % (42.0-52.0); HEMOGLOBIN 9.5 g/dl (13.5-17.5); MEAN CORPUSCULAR HEMOGLOBIN 29.2 pg (27.0-33.0); MEAN CORPUSCULAR HGB CONC 31.3 g/dl (32.0-36.5); MEAN CORPUSCULAR VOLUME 93.5 fl (80.0-96.0); PLATELET COUNT, AUTOMATED 244 10^3/uL (150-450); RED BLOOD COUNT 3.25 10^6/uL (4.30-6.10); WHITE BLOOD COUNT 6.8 10^3/uL (4.0-10.0)
[2019-12-15 08:28] LABS: BLOOD UREA NITROGEN 16 MG/DL (7-18); CALCIUM LEVEL 8.5 MG/DL (8.8-10.2); CARBON DIOXIDE LEVEL 23 MEQ/L (21-32); CHLORIDE LEVEL 116 MEQ/L (98-107); CREATININE FOR GFR 0.88 MG/DL (0.70-1.30); GLOMERULAR FILTRATION RATE > 60.0 (>49); GLUCOSE, FASTING 179 MG/DL (70-100); POTASSIUM SERUM 5.8 MEQ/L (3.5-5.1); SODIUM LEVEL 144 MEQ/L (136-145)
[2019-12-15] MEDS ORDERED: APIXABAN 5 MG TAB (ELIQUIS) PO SCH (09:00)
[2019-12-15] MEDS: VITAMIN D 1,000 INTERNATIONAL UNITS TABLET PO SCH (09:00)
[2019-12-15] MEDS: LIDOCAINE 5% (LIDODERM) PATCH TD SCH (09:59)
[2019-12-15] MEDS: ASPIRIN 81 MG ENTERIC TAB PO SCH (10:00)
[2019-12-15] MEDS: lisinopriL 40 MG TAB PO SCH (10:00)
[2019-12-15] MEDS: TAMSULOSIN 0.4 MG CAP PO SCH (10:01)
[2019-12-15] MEDS: ATORVASTATIN 20 MG TAB PO SCH (10:01)
[2019-12-15] MEDS: OMEPRAZOLE 20 MG CAP PO SCH (10:01)
[2019-12-15] MEDS: MULTIVITAMINS/MINERALS THERAP 1 TAB PO SCH (10:01)
[2019-12-15] MEDS: FOLIC ACID 1 MG TAB PO SCH (10:01)
[2019-12-15] MEDS: DULoxetine 30 MG CAP (CYMBALTA) PO SCH (10:01)
[2019-12-15] MEDS: PREGABALIN 100 MG CAP (LYRICA) PO SCH (10:01)
[2019-12-15 10:02] VITALS: BP 140/81
[2019-12-15] MEDS: amLODIPine 5 MG TAB PO SCH (10:02)
[2019-12-15] MEDS: FINASTERIDE 5 MG TAB PO SCH (10:02)
[2019-12-15] MEDS: HumaLOG INSULIN (NovoLOG) PER UNIT SC SCH ×2 (10:02→12:29)
--- NOTE | 2019-12-15 13:25 | IPNPDOC ---
Date Seen The patient was seen on 12/15/19. Progress Note T3 compression fracture: per lucy paris, orthoPA, ortho attending recommends "no restrictions. outpt fu with ortho prn after discharge." VS, I&O, 24H, Terrancebonblanka Vital Signs/I&O Vital Signs Date Time Temp Pulse Resp B/P (MAP) Pulse Ox O2 Delivery O2 Flow Rate FiO2 12/15/19 10:02 70 140/81 12/15/19 06:00 97.6 17 98 Room Air I&O- Last 24 Hours up to 6 AM 12/15/19 06:00 Intake Total 1670 ml Output Total 1600 ml Balance 70 ml Laboratory Data 24H LABS Laboratory Tests 2 12/14/19 16:42: Bedside Glucose (Misc Panel) 148H 12/14/19 20:01: Bedside Glucose (Misc Panel) 169H 12/15/19 07:49: Nucleated Red Blood Cells % (auto) 0.0, Anion Gap 5L, Glomerular Filtration Rate > 60.0, Calcium Level 8.5L 12/15/19 11:48: Bedside Glucose (Misc Panel) 233H CBC/BMP Laboratory Tests 12/15/19 07:49 Microbiology Microbiology 12/10/19 Stool Lactoferrin - Final, Complete 12/10/19 Gastrointestinal Tract Panel (PCR) - Final, Complete Clostridium Difficile A/B 12/10/19 Blood Culture - Preliminary, Resulted No Growth after 72 hours. All specime... 12/10/19 Blood Culture - Preliminary, Resulted No Growth after 72 hours. All specime... RAYRAY BRADY MD Dec 15, 2019 13:25
[2019-12-15] MEDS ORDERED: FIRV50SO PO (13:26)
[2019-12-15] MEDS ORDERED: CALCIUM GLUCONATE 1,000 MG in D5W MINI-BAG PLUS 100 ML IV ONE (13:45)
[2019-12-15] MEDS ORDERED: ELIQ5TAB PO ×3 (14:30→16:34)
[2019-12-15] MEDS ORDERED: PRIL20TA2 PO (14:30)
[2019-12-15] MEDS ORDERED: VANC1CAP7 PO (14:52)
[2019-12-15] MEDS ORDERED: FLAG500T PO (14:54)
[2019-12-15] MEDS ORDERED: SOD POLYSTYRENE SULFONATE SUSP 15 GM/60 ML UD PO ONE (15:00)
--- NOTE | 2019-12-15 20:12 | IPN ---
DATE: 12/15/2019 Patient has failed a home safety evaluation, medically stable for hospital discharge. He was evaluated for thoracic compression fracture for which he declined any surgical intervention. He currently has had improvement in his diarrhea from Clostridium difficile (C diff) colitis and currently down to no bowel movements yesterday and zero this morning from midnight. Patient is afebrile, no chills. Temperature 97.6, pulse 77, respiratory rate 17, blood pressure 140/81, 98% on room air. Generally, patient is awake, alert, oriented to person, place and time. No conversational dyspnea. No jugular venous distention (JVD) or thyromegaly. Anicteric sclerae. No jaundice. No pallor or icterus. No use of respiratory accessory muscles. Lungs are clear to auscultation. No wheezing, rales or rhonchi. Heart: S1, S2, sinus rhythm. Abdomen is obese, soft, nontender, nondistended. Positive bowel sounds times four quadrants. Extremities: Patient has bilateral lower extremity excoriations, well-healed scabs on left lower extremity. Patient has a scab over the right 2nd toe, missing right big toe. LABORATORY DATA: White count 6.8, hemoglobin 9.7, hematocrit 30, platelet count 244. Sodium 144, potassium 5.8, chloride 116, bicarbonate 23, BUN 16, creatinine 0.88, glucose of 179. ASSESSMENT AND PLAN: This is a 69-year-old male admitted on 12/10/2019 with complaints of persistent diarrhea, a history of duodenal perforation July 2018 with repair, hypertension, diabetes, insulin-dependent, BPH, alcohol abuse. Had a 1-week history of diarrhea and dizziness. Patient was found to have Clostridium difficile colitis, on oral vancomycin and has had significant improvement since. He did develop dehydration, status post IV fluids, and hyperkalemia, given calcium gluconate. He was continued on sliding scale and insulin coverage with fingersticks before food and nightly. Patient drinks alcohol 2-3 times a week. . Patient was found to have a T3 compression fracture after complaining of neck and left shoulder pain. He was evaluated by orthopedic surgery and would like the patient to followup as an outpatient for continued surveillance x-rays with Dr. Portillo. Currently has no signs or symptoms. IMPRESSION: 1. T3 compression fracture, age indeterminate, with a 10% height loss and no retropulsion of the T3 vertebrae in the superior endplate. Patient is to followup with orthopedic surgery as outpatient with serial surveillance x-rays by Dr. Hubert Portillo. 2. Clostridium difficile colitis. Currently on vancomycin, and has had no loose stools for the past 2 days. White count is normal, tolerating his diet well without nausea or vomiting. Patient is medically stable for hospital discharge. 3. Type 2 diabetes, on sliding scale. Fingersticks before food and nightly and coverage of insulin. 4. Dyslipidemia. On chronic Lipitor. 5. Atrial fibrillation. Ventricular rate of 81. Currently rate controlled, rate of 56 to 77. On Eliquis 5 mg twice a day. 6. Hypothyroidism. On chronic Synthroid. 7. Chronic pain and neuropathy. On Lyrica. 8. Vitamin D deficiency. On 2000 units supplement daily. 9. BPH. On Flomax. 10. Reflux. On Prilosec. 11. Hypertension. On lisinopril 20 mg daily, Norvasc 7.5 mg daily. Blood pressure is 110 to 145 systolic. No complaints of chest pain, pressure or tightness, headaches, changes in vision or gait abnormalities. 12. Hyperkalemia. Status post Kayexalate and calcium gluconate. 13. Alcohol abuse. On folic acid, thiamine and folate. disposition: may dc home if cleared by physical therapy. MTDD
== END 2019-12-15 17:00 | disposition home health service (06) | DRG 372 ==
LOC: M ED 16:30 → EDBD 16:30 → M ED INP 18:00 → ENRESERV 18:35 → M PCU 21:21 → M MSPAV 12-12 16:52
PROVIDERS: ADMIT Internal Medicine; ATTEND General Practice
DX: A04.72 Enterocolitis due to Clostridium difficile, not specified as recurrent (principal); N17.9 Acute kidney failure, unspecified; E87.0 Hyperosmolality and hypernatremia; S22.030A Wedge compression fracture of third thoracic vertebra, initial encounter for closed fracture; E86.0 Dehydration; E87.5 Hyperkalemia; I10 Essential (primary) hypertension; E11.40 Type 2 diabetes mellitus with diabetic neuropathy, unspecified; N40.0 Benign prostatic hyperplasia without lower urinary tract symptoms; F10.10 Alcohol abuse, uncomplicated; G89.29 Other chronic pain; Z79.82 Long term (current) use of aspirin; Z79.4 Long term (current) use of insulin; Z79.899 Other long term (current) drug therapy; R00.1 Bradycardia, unspecified; D50.9 Iron deficiency anemia, unspecified; E03.9 Hypothyroidism, unspecified; I48.0 Paroxysmal atrial fibrillation; X58.XXXA Exposure to other specified factors, initial encounter; Y92.9 Unspecified place or not applicable

== ENCOUNTER 2020-01-21 07:22 | Inpatient (IN) | payer MEDICARE, BC, OTHER ==
[~2020-01-21] VITALS: Ht 180.3 cm; Wt 90.0 kg
[~2020-01-21 07:22] MED LIST changes: +ACET500T15 PO; +ATOR40TA75 PO; +ELIQ5TAB PO; +FIRV50SO PO; +FLAG500T PO; +LISI40TA PO; +MED REC COMMENT; +METF-839 PO; +NICO4GUM PO; +OMEP1CAP73 PO; +PREV1.1G TEETH; +PRIL20TA2 PO; +VANC1CAP7 PO; +VITAD1000T PO; +ZOLP10TA2 PO
[2020-01-21] MEDS ORDERED: NS 500 ML IV ONE (08:15)
[2020-01-21 08:30] LABS: BASO # 0.1 10^3/uL (0.0-0.2); BASO % 0.4 % (0.0-1.0); EOS # 0.8 10^3/uL (0.0-0.5); EOS % 5.2 % (0.0-3.0); HEMATOCRIT 26.8 % (42.0-52.0); HEMOGLOBIN 8.4 g/dl (13.5-17.5); LYMPH # 2.7 10^3/uL (1.5-5.0); LYMPH % 16.8 % (24.0-44.0); MEAN CORPUSCULAR HEMOGLOBIN 26.3 pg (27.0-33.0); MEAN CORPUSCULAR HGB CONC 31.3 g/dl (32.0-36.5); MEAN CORPUSCULAR VOLUME 83.8 fl (80.0-96.0); MONO # 1.4 10^3/uL (0.0-0.8); MONO % 8.9 % (0.0-5.0); NEUTROPHILS # 10.6 10^3/uL (1.5-8.5); NEUTROPHILS % 67.7 % (36.0-66.0); PLATELET COUNT, AUTOMATED 383 10^3/uL (150-450); WHITE BLOOD COUNT 15.7 10^3/uL (4.0-10.0)
[2020-01-21 08:43] LABS: INR 1.82; PROTHROMBIN TIME 20.8 SECONDS (11.8-14.0)
[2020-01-21 08:44] LABS: PARTIAL THROMBOPLASTIN TIME 38.8 SECONDS (25.0-38.4)
[2020-01-21 08:57] LABS: ERYTHROCYTE SEDIMENTATION RATE 25 mm/hr (0-20)
[2020-01-21] MEDS: DOCUSATE SODIUM 100 MG CAP PO SCH ×2 (09:00→21:38)
--- NOTE | 2020-01-21 09:08 | REP ---
Right upper extremity duplex Doppler venous ultrasound. Real time compression and duplex Doppler evaluation of the right upper extremity deep venous system is performed. The right subclavian, jugular, axillary, brachial, basilic and cephalic veins are fully compressible where accessible with transducer pressure, and demonstrate no intraluminal thrombus and normal venous waveforms. There is no evidence of deep venous thrombosis. Impression: No evidence of deep venous thrombosis of the right upper extremity deep vein system. Electronically Signed by Heath White MD 01/21/2020 09:00 A
[2020-01-21 09:12] LABS: C REACTIVE PROTEIN QUANTITATIV 3.04 MG/DL (0.00-0.30)
[2020-01-21] MEDS ORDERED: NS 1,000 ML IV ONE (09:45)
[2020-01-21 09:50] LABS: BLOOD UREA NITROGEN 8 MG/DL (7-18); CALCIUM LEVEL 7.9 MG/DL (8.8-10.2); CARBON DIOXIDE LEVEL 20 MEQ/L (21-32); CHLORIDE LEVEL 103 MEQ/L (98-107); CREATININE FOR GFR 1.01 MG/DL (0.70-1.30); GLOMERULAR FILTRATION RATE > 60.0 (>49); GLUCOSE, FASTING 151 MG/DL (70-100); POTASSIUM SERUM 3.5 MEQ/L (3.5-5.1); SODIUM LEVEL 137 MEQ/L (136-145)
[2020-01-21] MEDS ORDERED: ceFAZolin SOD 2 GM in IV 1 EA IV ONE (10:00)
[2020-01-21] MEDS ORDERED: MAALOX 30 ML SUSP *UDC PO PRN (10:30)
[2020-01-21] MEDS ORDERED: MOM 30ML SUSPENSION UDC PO PRN (10:30)
[2020-01-21] MEDS ORDERED: NICO4GUM44 MT (10:43)
[2020-01-21] MEDS ORDERED: SYMB16INH INH (10:43)
[2020-01-21] MEDS ORDERED: SANT250O8 TOP (10:43)
[2020-01-21] MEDS ORDERED: MELA3TAB62 PO (10:43)
[2020-01-21] MEDS ORDERED: CLIN1SOL TOP (10:43)
[2020-01-21] MEDS ORDERED: EUCECRE8 TOP (10:43)
[2020-01-21] MEDS ORDERED: ELIQ5TAB PO (10:43)
[2020-01-21] MEDS ORDERED: EQL50TAB2 PO (10:43)
[2020-01-21] MEDS ORDERED: ATOR80TA59 PO (10:43)
[2020-01-21 11:00] VITALS: BP 144/79
--- NOTE | 2020-01-21 11:10 | REP ---
RIGHT ELBOW, FOUR VIEWS: Four views of the right elbow performed. No acute fracture or dislocation is seen. Small linear calcification is seen at the olecranon. There is overlying moderate focal soft tissue swelling in the region of the olecranon. I suspect this indicates olecranon bursitis. Electronically Signed by Heath White MD 01/24/2020 11:36 P
[2020-01-21] MEDS ORDERED: ACETAMINOPHEN 500 MG TAB PO PRN (11:30)
[2020-01-21 14:00] VITALS: BP 136/73
[2020-01-21] MEDS ORDERED: SODIUM CHLORIDE 0.9% 1000ML IV ONE (14:00)
[2020-01-21] MEDS: ceFAZolin SOD 1 GM in D5W MINI-BAG PLUS 50 ML IV SCH ×2 (14:20→21:38)
[2020-01-21] MEDS: NICOTINE POLACRILEX 2 MG GUM PO PRN (15:16)
[2020-01-21] MEDS ORDERED: NS 1,000 ML IV SCH (16:02)
--- NOTE | 2020-01-21 16:30 | HPE ---
DATE OF ADMISSION: CHIEF COMPLAINT: Right elbow swelling. HISTORY OF PRESENT ILLNESS: This 69-year-old man has a 3-week history of right elbow swelling. He states that about 3 weeks ago this came on spontaneously. It drained a small amount of clear fluid and trace of blood. It stopped draining over the next day or so. The swelling came back and went down, then came back and again went down a third time over the last 3 weeks. Over the last day he has noticed some bruising on the medial aspect of his biceps. There is no pop. No pain there. He is moving his elbow quite well. He is not having any subjective fevers, chills, sweats at night, or other hot swollen joints. PAST MEDICAL HISTORY: From the electronic medical record includes: 1. Metabolic encephalopathy. 2. Left distal fibula fracture. 3. Alcohol use. 4. Elevated lactic acid. 5. Intestinal perforation. 6. Hyperglycemia. 7. Blood loss anemia. 8. Gastrointestinal (GI) bleed. 9. Syncope. 10. Acute kidney injury. 11. Shoulder fracture. 12. Diarrhea. 13. Sepsis. 14. Acute renal failure. 15. Hypercalcemia. 16. Multiple rib fractures. 17. Diabetes. 18. Hypertension. MEDICATIONS: Include Tylenol, Mylanta, amlodipine, Eliquis, atorvastatin, budesonide, docusate, duloxetine, finasteride, folic acid, Synthroid, Nicorette, Prilosec, Lyrica, Flomax, Zolpidem. ALLERGIES: No known drug allergies. PAST SURGICAL HISTORY: 1. Polypectomy. 2. Upper endoscopy. SOCIAL HISTORY: He is retired. 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 He is right-hand dominant. He smokes a pack of cigarettes a day. Uses alcohol daily. PHYSICAL EXAMINATION: A 69-year-old man. He is in no acute distress. Vital signs: Temperature recorded 98.4, blood pressure 136/73, pulse rate 78, respiratory rate 19, 97% on room air. Inspection of his upper extremities reveal a small to moderate size elbow bursitis. This is a little bit warm. It is fluctuant. It is a mildly red. Elbow range of motion is full 0-135 degrees. Full pronation/supination. Painless elbow range of motion. No pain to palpation throughout the elbow aside from at the posterior bursitis area. Forearm compartments are soft. Normal sensation and motor function to median, radial, ulnar, (MRU), anterior interosseous nerve (AIN)/posterior interosseous nerve (PIN). Hands warm and well perfused. Strong radial pulse. No pain at the shoulder. There is a moderate to large amount of bruising at the medial aspect of the biceps. Biceps tendon is intact. Normal blood test. Normal rise and fall. Laboratory examination reveals white blood cell count 15.7. Percent neutrophils 67, ESR 25. Ethyl alcohol 0.004. CRP 3.04. Lactic acid 4.9, down to 4.6. Coagulation studies reveal INR 1.82, APTT 38, PT 20.8. Microbiology: Blood cultures are pending. Elbow x-ray demonstrates no acute fracture or dislocation. There is a small calcification at the olecranon. Moderate overlying soft tissue swelling indicative of olecranon bursitis. Vascular ultrasound demonstrates no evidence of deep vein thrombosis (DVT) of the right upper extremity deep venous system. ASSESSMENT AND PLAN: This 69-year-old man has a moderate chance of having right elbow septic bursitis. Certainly in the absence of any other infectious sources, this is the most likely cause of his elevated white blood cell count and inflammatory markers. I think it is reasonable to go ahead with irrigation and debridement of his right elbow as well as starting antibiotics today; however, in the absence of septic elbow arthritis, I think it is more prudent to hold anticoagulants and perform this either tomorrow or within the next 24-48 hours, given the fact that he appears well, nontoxic, and his vital signs are stable. This will give some chance for the Eliquis to be cleared from his system and lower his chance of bleeding. I will make him for now diet as tolerated, nothing by mouth at midnight in preparation to perhaps do the surgery tomorrow in the afternoon, but I would like to reassess him tomorrow in the morning or early afternoon before proceeding with surgery and repeat his blood work as well as following up on the blood cultures. The hospitalist is involved, and I also recommend consultation with Dr. Melgoza, the infectious disease specialist. The patient understands the plan.
--- NOTE | 2020-01-21 17:14 | HPEPDOC ---
General Date of Admission 01/21/20 Date of Service: Jan 21, 2020 Chief Complaint The patient is a 69-year-old male admitted with a reason for visit of Right Elbow Swelling. Source: Patient History of Present Illness 69 year old male follows at the [facility] with new atrial fibrillation diagnosed in December 2019 started on Eliquis for the first time presented to the ED with large area of Echymosis on his right arm which he noticed 3 to 4 days ago for which he went to see his PMD and PMD sent him to ED. He also reported swelling of the right elbow off and on for the past 3 weeks. He denied any falls or trauma that he remembers. He does drink a fair amount of alcohol daily. The bruising started above his elbow and progressed upward to involve the whole of the medial and back aspect of the right arm. It is painless. He also reported eruptions on his arms and legs which actually look like scratches or small lacerations which are scabbed over. He does report itching. About his right elbow swelling he reports that it had burst and drained some fluid and had gone down but then has come back again. It is not painful at this time. Patient is admitted for possible infected right olecranon bursitis. Home Medications Scheduled Amlodipine Besylate (Amlodipine Besylate) 5 Mg Tablet, 7.5 MG PO DAILY, (Reported) Apixaban (Eliquis) 5 Mg Tablet, 5 MG PO BID, (Reported) Aspirin (Aspirin EC) 81 Mg Tab, 81 MG PO DAILY, (Reported) Atorvastatin Calcium (Atorvastatin Calcium) 80 Mg Tablet, 40 MG PO DAILY, (Reported) Budesonide/Formoterol (Symbicort 160-4.5 Mcg Inhaler) 6 Gm Hfa.aer.ad, 2 PUFF INH BID, (Reported) Cholecalciferol (Vitamin D3) (Vitamin D3) 1,000 Unit Tablet, 2,000 UNITS PO DAILY, (Reported) Clindamycin Phosphate (Clindamycin Phosphate) 1% 30ML Solution, 1 DOSE TOP BID, (Reported) APPLY TO LESIONS ON ARMS AND LEGS Collagenase Clostridium Hist. (Santyl) 30 Gm Oint...g., 1 DOSE TOP DAILY, (Reported) APPLY TO LESIONS ON ARMS AND LEGS Duloxetine Hcl (Duloxetine HCl) 30 Mg Cap, 30 MG PO DAILY, (Reported) Finasteride (Finasteride) 5 Mg Tab, 5 MG PO DAILY, (Reported) Folic Acid (Folic Acid) 1 Mg Tab, 1 MG PO DAILY, (Reported) Insulin Human Lispro (Novolog) 100 Unit/1 Ml Vial, 1 DOSE SC AC, (Reported) PER SLIDING SCALE Lanolin Alcohol/Mo/W.pet/[place] (Eucerin Creme) 454 Gm Cream..g., 1 DOSE TOP BID, (Reported) APPLY TO ARMS AND LEGS Levothyroxine Sodium (Levothyroxine Sodium) 25 Mcg Tab, 25 MCG PO DAILY, (Reported) Lisinopril (Lisinopril) 40 Mg Tablet, 20 MG PO DAILY, (Reported) Melatonin (Melatonin) 3 Mg Tablet, 3 MG PO QHS, (Reported) Multivitamins (Thera M Plus Tablet) 1 Tab Tab, 1 TAB PO DAILY, (Reported) [place]-3 Fatty Acids/Fish Oil (Fish Oil 1,000 mg Capsule) 1 Each Capsule, 2,000 MG PO BID, (Reported) Omeprazole (Omeprazole) 20 Mg Capsule.dr, 20 MG PO BID, (Reported) Pregabalin (Lyrica) 300 Mg Capsule, 300 MG PO BID, (Reported) Sod Phos Di, Wirt/K Phos Wirt (K-Phos Neutral Tablet) 1 Tab Tab, 1 TAB PO DAILY, (Reported) Tamsulosin HCl (Flomax) 0.4 Mg Cap, 0.4 MG PO DAILY, (Reported) Vitamin B Complex (Vitamin B Complex) 1 Each Tablet, 1 TAB PO DAILY, (Reported) Zolpidem Tartrate (Zolpidem Tartrate) 10 Mg Tablet, 10 MG PO QHS, (Reported) Scheduled PRN Acetaminophen (Acetaminophen) 500 Mg Tablet, 1,000 MG PO Q6H PRN for PAIN, (Reported) Nicotine Polacrilex (Nicotine Gum) 4 Mg Gum, 4 MG MT PRN PRN for NICOTINE WITHDRAWAL, (Reported) Allergies Coded Allergies: No Known Allergies (Unverified , 02/25/19) Past Medical History Medical History T3 compression fracture, age indeterminate found in december 2019 Type 2 diabetes Dyslipidemia. Paroxysmal Atrial fibrillation. Hypothyroidism. Chronic Anemia Chronic pain and neuropathy. Vitamin D deficiency. BPH. Reflux Hypertension. Alcohol abuse. 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 H/O left sided rib fractures. H/o Clostridium difficile colitis. Surgical History Right 2 toe amputations Ex-lap repair of perforated duodenal ulcer. Family History Significant Family History: Diabetes (both father and mother) Social History * Smoker: current smoker Alcohol: heavy (4 brandies and some coctails.) Drugs: denies A-FIB/CHADSVASC A-FIB History Current/History of A-Fib/PAF?: Yes Current PO Anticoag Therapy: Yes Review of Systems Constitutional: Denies: Chills, Fever, Night Sweats Eyes: Denies: Pain, Vision change ENT: Denies: Head Aches, Ear Pain, Dysphagia Skin: Reports: Lesions, Bruising, Itching Pulmonary: Denies: Dyspnea, Cough Cardiovascular: Denies: Chest Pain, Palpitations, Orthopnea, Paroxysmal Noc. Dyspnea, Lt Headedness Gastrointestinal: Denies: Nausea, Vomiting, Abdominal Pain, Diarrhea Genitourinary: Denies: Dysuria, Frequency, Incontinence, Retention Musculoskeletal: Reports: Shoulder Pain (left), Other Symptoms (right elbow joint swelling) Neurological: Denies: Weakness, Numbness, Change in speech, Confusion Physical Examination General Exam: Positive: Alert, Cooperative, No Acute Distress Eye Exam: Positive: PERRLA, Conjunctiva & lids normal, EOMI; Negative: Sclera icteric ENT Exam: Positive: Atraumatic, Mucous membr. moist/pink, Pharynx Normal Neck Exam: Positive: Supple; Negative: JVD, thyromegaly Chest Exam: Positive: Clear to auscultation, Normal air movement Heart Exam: Positive: Rate Normal, Regular Rhythm, Normal S1, Normal S2; Negative: Murmurs, Rubs Abdomen Exam: Positive: Normal bowel sounds, Soft; Negative: Tenderness, Hepatospenomegaly Extremity Exam: Positive: Swelling (at the bursa of the right elbow joint. No impairment of movemtn or pain in malik right elbow joint. ); Negative: Clubbing, Cyanosis, Edema Skin Exam: Positive: Nl turgor and temperature, Lesion (excoriations on both upper extremities and legs. ), Other skin issue (Very lerge bruise on malik right arm ); Negative: Breakdown Vital Signs Vital Signs Date Time Temp Pulse Resp B/P (MAP) Pulse Ox O2 Delivery O2 Flow Rate FiO2 01/21/20 08:20 01/21/20 07:23 97.0 96 21 100 Room Air Laboratory Data Labs 24H Laboratory Tests 2 01/21/20 08:15: Immature Granulocyte % (Auto) 1.0, Neutrophils (%) (Auto) 67.7H, Lymphocytes (%) (Auto) 16.8L, Monocytes (%) (Auto) 8.9H, Eosinophils (%) (Auto) 5.2H, Basophils (%) (Auto) 0.4, Neutrophils # (Auto) 10.6H, Lymphocytes # (Auto) 2.7, Monocytes # (Auto) 1.4H, Eosinophils # (Auto) 0.8H, Basophils # (Auto) 0.1, Nucleated Red Blood Cells % (auto) 0.0, Erythrocyte Sedimentation Rate 25H, Prothrombin Time 20.8H, Prothromb Time International Ratio 1.82, Activated Partial Thromboplast Time 38.8H, Anion Gap 14, Glomerular Filtration Rate > 60.0, Calcium Level 7.9L, C-Reactive Protein, Quantitative 3.04H 01/21/20 08:17: Lactic Acid Level 4.9*H 01/21/20 10:07: CBC/BMP Laboratory Tests 01/21/20 08:15 Microbiology Microbiology 01/21/20 Blood Culture, Received Pending 01/21/20 Blood Culture, Received Pending Assessment/Plan 69 year old male follows at the [facility] with new atrial fibrillation diagnosed in December 2019 started on Eliquis for the first time presented to the ED with large area of Echymosis on his right arm which he noticed 3 to 4 days ago for which he went to see his PMD and PMD sent him to ED. He also reported swelling of the right elbow off and on for the past 3 weeks. He denied any falls or trauma that he remembers. He does drink a fair amount of alcohol daily. The bruising started above his elbow and progressed upward to involve the whole of the medial and back aspect of the right arm. It is painless. He also reported eruptions on his arms and legs which actually look like scratches or small lacerations which are scabbed over. He does report itching. About his right elbow swelling he reports that it had burst and drained some fluid and had gone down but then has come back again. It is not painful at this time. Patient is admitted for possible infected right olecranon bursitis. Possible infected right olecranon bursitis have been seen by ortho possible drainage tomorrow as patient does not appear septic and this will give 24 hours of eliquis will continue cefazolin CXR clear, UA clear no other source of infection identified. Lactacidosis I think this is due to alcohol I do not think this is related to any suspected infection as the crp is not much elevated will send procalcitonin IVF bolus. Paroxysmal Afib now in sinus rhythm will hold eliquis. T3 compression fracture, age indeterminate found in december 2019 Type 2 diabetes will continue levemir and lispro as per sliding scale FA AC and HS. Dyslipidemia. statin Hypothyroidism. synthroid Acute on Chronic Anemia Has Diverticulosis, hemorroids Duodenal ulcer perforation in Jul 2018 H/O GIB Erosive esophagitis, gastritis, duodenitis in Feb 2019 will check iron panel, vit b12, folate Had SPEP, serum amd urine immunofixation neg for MM. Chronic pain and neuropathy. gabapentin Vitamin D deficiency. BPH. finasteride, flomax Reflux PPI Hypertension. amlodipine continued. Will hold lisinopril for now. Alcohol abuse. this is probably causing the elevated lacticacidosis rather than sepsis. 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 H/O left sided rib fractures. pain control with cymbalta, lyrica COPD symbicort Smoker Smoking cessation discussed Patient requested nicotine gums. Plan / VTE VTE Prophylaxis Ordered?: Yes VADIM ALVAREZ MD Jan 21, 2020 10:23
[2020-01-21] MEDS ORDERED: GLUCAGON INJ 1MG VIAL SC PRN (17:15)
[2020-01-21] MEDS ORDERED: DEXTROSE 50% 50 ML SYRINGE IV PRN (17:15)
[2020-01-21] MEDS ORDERED: GLUCOSE 4GM CHEW TABLET PO PRN (17:15)
[2020-01-21] MEDS: HumaLOG INSULIN (NovoLOG) PER UNIT SC SCH ×2 (17:30→21:00)
[2020-01-21 19:13] LABS: ALBUMIN 2.4 GM/DL (3.2-5.2); BILIRUBIN,DIRECT 0.2 MG/DL (0.0-0.2); BILIRUBIN,TOTAL 0.5 MG/DL (0.2-1.0); TOTAL PROTEIN 5.5 GM/DL (6.4-8.2)
[2020-01-21] MEDS: SYMBICORT 160/4.5MCG INHALER 6GM INH SCH (19:52)
[2020-01-21 19:57] VITALS: BP 161/85
[2020-01-21] MEDS: OMEPRAZOLE 20 MG CAP PO SCH (21:38)
[2020-01-21] MEDS: PREGABALIN 100 MG CAP (LYRICA) PO SCH (21:38)
[2020-01-21] MEDS: zolPIDEM TARTRATE 5 MG TAB PO SCH (21:38)
[2020-01-22] MEDS: LEVOTHYROXINE 25MCG TABLET (0.025MG) PO SCH (05:49)
[2020-01-22] MEDS: ceFAZolin SOD 1 GM in D5W MINI-BAG PLUS 50 ML IV SCH ×3 (05:49→22:24)
[2020-01-22 05:58] VITALS: BP 130/88
[2020-01-22] MEDS: HumaLOG INSULIN (NovoLOG) PER UNIT SC SCH ×4 (07:30→20:53)
[2020-01-22] MEDS: SYMBICORT 160/4.5MCG INHALER 6GM INH SCH ×2 (07:30→19:59)
[2020-01-22 07:35] LABS: BASO # 0.1 10^3/uL (0.0-0.2); BASO % 0.5 % (0.0-1.0); EOS # 0.8 10^3/uL (0.0-0.5); EOS % 7.3 % (0.0-3.0); HEMATOCRIT 25.9 % (42.0-52.0); HEMOGLOBIN 7.8 g/dl (13.5-17.5); LYMPH # 2.4 10^3/uL (1.5-5.0); LYMPH % 22.3 % (24.0-44.0); MEAN CORPUSCULAR HEMOGLOBIN 25.9 pg (27.0-33.0); MEAN CORPUSCULAR HGB CONC 30.1 g/dl (32.0-36.5); MONO # 0.8 10^3/uL (0.0-0.8); MONO % 7.5 % (0.0-5.0); NEUTROPHILS # 6.7 10^3/uL (1.5-8.5); NEUTROPHILS % 61.8 % (36.0-66.0); PLATELET COUNT, AUTOMATED 355 10^3/uL (150-450); RED BLOOD COUNT 3.01 10^6/uL (4.30-6.10); WHITE BLOOD COUNT 10.8 10^3/uL (4.0-10.0)
[2020-01-22 07:45] LABS: INR 1.41
[2020-01-22 08:03] LABS: BLOOD UREA NITROGEN 7 MG/DL (7-18); CALCIUM LEVEL 7.2 MG/DL (8.8-10.2); CARBON DIOXIDE LEVEL 24 MEQ/L (21-32); CHLORIDE LEVEL 108 MEQ/L (98-107); CREATININE FOR GFR 0.72 MG/DL (0.70-1.30); GLOMERULAR FILTRATION RATE > 60.0 (>49); GLUCOSE, FASTING 74 MG/DL (70-100); POTASSIUM SERUM 3.2 MEQ/L (3.5-5.1); SODIUM LEVEL 141 MEQ/L (136-145)
[2020-01-22 08:22] LABS: FERRITIN 37 NG/ML (26-388); IRON (FE) 21 UG/DL (65-175); PERCENT SATURATION 7.3 % (19.7-50.0); TOTAL IRON BINDING CAPACITY 289 UG/DL (250-450)
[2020-01-22] MEDS: DOCUSATE SODIUM 100 MG CAP PO SCH ×3 (09:00→20:44)
[2020-01-22] MEDS: FINASTERIDE 5 MG TAB PO SCH (09:37)
[2020-01-22] MEDS: PREGABALIN 100 MG CAP (LYRICA) PO SCH ×2 (09:37→21:01)
[2020-01-22] MEDS: DULoxetine 30 MG CAP (CYMBALTA) PO SCH (09:37)
[2020-01-22] MEDS: ATORVASTATIN 20 MG TAB PO SCH (09:37)
[2020-01-22] MEDS: amLODIPine 5 MG TAB PO SCH (09:38)
[2020-01-22] MEDS: TAMSULOSIN 0.4 MG CAP PO SCH (09:39)
[2020-01-22] MEDS: NICOTINE POLACRILEX 2 MG GUM PO PRN (09:39)
[2020-01-22] MEDS: OMEPRAZOLE 20 MG CAP PO SCH ×2 (09:39→21:01)
[2020-01-22] MEDS: FOLIC ACID 1 MG TAB PO SCH (09:39)
--- NOTE | 2020-01-22 10:35 | IPN ---
DATE: 01/22/2020 CHIEF COMPLAINT: Right elbow septic bursitis. HISTORY OF PRESENT ILLNESS: This 69-year old man presents with increased pain and swelling and drainage to his right elbow. He appears to have septic bursitis. I saw him this morning at [facility], [address] PHYSICAL EXAMINATION: Well-appearing 69-year-old man. There is slightly increased redness and warmth to his right elbow today, overlying the bursal area. Joint still moving freely without pain. ASSESSMENT/PLAN: Discussed with Mr. Lee the pros and cons, risks and benefits of doing nothing versus going ahead with irrigation and debridement of his right elbow, likely septic bursitis. He wished to go ahead. Surgical risks were discussed, included but not limited to infection, pain, stiffness, weakness, damage to surrounding structures, neurovascular injury, anesthetic complications, blood clots, , other risks. He indicated he understands and wished to go ahead. Some extent of surgery, as well as possible need for blood products. Marked the upper extremity. He will remain fasting and I have asked his nurse to administer IV fluids, normal saline at a rate of 125 mL an hour until the OR.
[2020-01-22 10:43] LABS: VITAMIN B12 LEVEL 877 PG/ML (247-911)
[2020-01-22 10:44] LABS: FOLATE > 24.0 NG/ML (>5.4)
--- NOTE | 2020-01-22 11:39 | IPNPDOC ---
Subjective Date Seen The patient was seen on 01/22/20. Subjective Chief Complaint/HPI Minimal pain in the right elbow. Slightly warm to touch. No fever or chills, Arm bruising unchanged. He tells me 3 to 4 days ago he woke up from sleep and saw this bruising. He is unsure but may have been laying on that side when he was sleeping. No nausea or vomtiing or diarrhea. As per nurses his is easlly irritable and antsy. Objective Physical Examination General Exam: Positive: Alert, Cooperative, No Acute Distress Eye Exam: Positive: PERRLA, Conjunctiva & lids normal, EOMI; Negative: Sclera icteric ENT Exam: Positive: Atraumatic, Mucous membr. moist/pink, Pharynx Normal Neck Exam: Positive: Supple; Negative: JVD, thyromegaly Chest Exam: Positive: Clear to auscultation, Normal air movement Heart Exam: Positive: Rate Normal, Regular Rhythm, Normal S1, Normal S2; Negative: Murmurs, Rubs Abdomen Exam: Positive: Normal bowel sounds, Soft; Negative: Tenderness, Hepatospenomegaly Extremity Exam: Positive: Swelling (at the bursa of the right elbow joint. No impairment of movemtn or pain in malik right elbow joint. ); Negative: Clubbing, Cyanosis, Edema Skin Exam: Positive: Nl turgor and temperature, Lesion (excoriations on both upper extremities and legs. ), Other skin issue (Very lerge bruise on malik right arm ); Negative: Breakdown Assessment /Plan Assessment 69 year old male follows at the [facility] with new atrial fibrillation diagnosed in December 2019 started on Eliquis for the first time presented to the ED with large area of Echymosis on his right arm which he noticed 3 to 4 days ago for which he went to see his PMD and PMD sent him to ED. He also reported swelling of the right elbow off and on for the past 3 weeks. He denied any falls or trauma that he remembers. He does drink a fair amount of alcohol daily. The bruising started above his elbow and progressed upward to involve the whole of the medial and back aspect of the right arm. It is painless. He also reported eruptions on his arms and legs which actually look like scratches or small lacerations which are scabbed over. He does report itching. About his right elbow swelling he reports that it had burst and drained some fluid and had gone down but then has come back again. It is not painful at this time. Patient is admitted for possible infected right olecranon bursitis. Possible right olecranon septic bursitis have been seen by ortho possible drainage tomorrow as patient does not appear septic and this will give 24 hours of eliquis will continue cefazolin CXR clear, UA clear no other source of infection identified. Going to OR for drainage. Lactacidosis I think this is due to alcohol I do not think this is related to any suspected infection as the crp is not much elevated will send procalcitonin continue IVF. Hypokalemia will replace IV potassium chloride. Paroxysmal Afib now in sinus rhythm will hold eliquis for procedure T3 compression fracture, age indeterminate found in december 2019 Type 2 diabetes will continue levemir and lispro as per sliding scale FA AC and HS. Dyslipidemia. statin Hypothyroidism. synthroid Acute on Chronic Anemia Has Diverticulosis, hemorroids Duodenal ulcer perforation in Jul 2018 H/O GIB Erosive esophagitis, gastritis, duodenitis in Feb 2019 will check iron panel, vit b12, folate Had SPEP, serum amd urine immunofixation neg for MM. Chronic pain and neuropathy. gabapentin Vitamin D deficiency. BPH. finasteride, flomax Reflux PPI Hypertension. amlodipine continued. Will hold lisinopril for now. Alcohol abuse. this is probably causing the elevated lactacidosis rather than sepsis. Aortic sclerosis No Aortic stenosis or regurgitation. 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 H/O left sided rib fractures. pain control with cymbalta, lyrica COPD symbicort Smoker Smoking cessation discussed Patient requested nicotine gums. Plan/VTE VTE Prophylaxis Ordered?: Yes VS, I&O, 24H, Fishbone Vital Signs/I&O Vital Signs Date Time Temp Pulse Resp B/P (MAP) Pulse Ox O2 Delivery O2 Flow Rate FiO2 01/22/20 09:38 84 130/88 01/22/20 05:58 98.4 20 96 Room Air I&O- Last 24 Hours up to 6 AM 01/22/20 06:00 Intake Total 3050 ml Output Total 0 ml Balance 3050 ml Laboratory Data 24H LABS Laboratory Tests 2 01/21/20 12:53: Lactic Acid Followup at 4 Hours 4.6*H 01/21/20 17:51: Bedside Glucose (Misc Panel) 98 01/21/20 18:09: Lactic Acid Level 3.5*H, Total Bilirubin 0.5, Direct Bilirubin 0.2, Aspartate Amino Transf (AST/SGOT) 84H, Alanine Aminotransferase (ALT/SGPT) 51, Alkaline Phosphatase 223H, Total Protein 5.5L, Albumin 2.4L, Albumin/Globulin Ratio 0.8 01/21/20 19:55: Bedside Glucose (Misc Panel) 76L 01/21/20 22:58: Lactic Acid Followup at 4 Hours 2.6*H 01/22/20 07:10: Immature Granulocyte % (Auto) 0.6, Neutrophils (%) (Auto) 61.8, Lymphocytes (%) (Auto) 22.3L, Monocytes (%) (Auto) 7.5H, Eosinophils (%) (Auto) 7.3H, Basophils (%) (Auto) 0.5, Neutrophils # (Auto) 6.7, Lymphocytes # (Auto) 2.4, Monocytes # (Auto) 0.8, Eosinophils # (Auto) 0.8H, Basophils # (Auto) 0.1, Nucleated Red Blood Cells % (auto) 0.0, Prothrombin Time 17.0H, Prothromb Time International Ratio 1.41, Anion Gap 9, Glomerular Filtration Rate > 60.0, Calcium Level 7.2L, Iron Level 21L, Total Iron Binding Capacity 289, Transferrin % Saturation 7.3L, Ferritin 37, Vitamin B12 Level 877, Folate > 24.0 01/22/20 08:14: Lactic Acid Level 2.4*H 01/22/20 11:16: Bedside Glucose (Misc Panel) 109 CBC/BMP Laboratory Tests 01/22/20 07:10 Microbiology Microbiology 01/22/20 Respiratory Virus Panel (PCR) (BRIAN) - Final, Complete 01/21/20 Blood Culture - Preliminary, Resulted No growth after 24 hours . All specim... 01/21/20 Blood Culture - Preliminary, Resulted No growth after 24 hours . All specim... VADIM ALVAREZ MD Jan 22, 2020 11:39
[2020-01-22] MEDS ORDERED: POTASSIUM CHLORIDE INJ 40 MEQ in NS 1,000 ML IV SCH (12:00)
[2020-01-22] MEDS ORDERED: MIDAZOLAM INJ 2MG/2ML VIAL (J2250 PER 1MG) As Ordered ONE (12:35)
[2020-01-22] MEDS ORDERED: fentaNYL 100 MCG/2 ML INJECTION (J3010) As Ordered ONE (12:42)
[2020-01-22] MEDS ORDERED: BUPIVACAINE HCL 0.25% 30ML VIAL As Ordered ONE (12:53)
[2020-01-22] MEDS ORDERED: ePHEDrine SULFATE 25 MG/5 ML(5MG/ML) SYRINGE As Ordered ONE (12:53)
[2020-01-22] MEDS ORDERED: LIDOCAINE 2% 100MG/5ML SDV (FOR ANES.) As Ordered ONE (12:53)
[2020-01-22] MEDS ORDERED: ceFAZolin 2 GM/D5W 50 ML IV BAG (J0690 PER 500MG) As Ordered ONE (12:53)
[2020-01-22] MEDS ORDERED: propofoL 200 MG/20 ML VIAL As Ordered ONE (12:54)
[2020-01-22] MEDS ORDERED: GLYCOPYRROLATE INJ 0.2 MG/ML 2 ML VIAL As Ordered ONE (13:07)
[2020-01-22] MEDS ORDERED: ceFAZolin 1GM VIAL (J0690 PER 500MG) As Ordered ONE (13:09)
[2020-01-22] MEDS ORDERED: ONDANSETRON 4MG/2ML VIAL IV PRN (14:00)
[2020-01-22] MEDS ORDERED: PERCOCET 5MG/325MG TAB PO PRN (14:00)
[2020-01-22] MEDS ORDERED: LR 1,000 ML IV SCH (14:00)
[2020-01-22] MEDS ORDERED: ACETAMINOPHEN TAB 650MG DOSE (2X325MG) PO PRN (14:00)
[2020-01-22] MEDS ORDERED: fentaNYL 100 MCG/2 ML INJECTION (J3010) IV PRN (14:00)
[2020-01-22] MEDS ORDERED: MORPHINE 2 MG/ML 1ML VIAL (J2270) IV PRN (14:00)
[2020-01-22 15:00] VITALS: BP 126/84
[2020-01-22 16:00] VITALS: BP 107/64
--- NOTE | 2020-01-22 16:24 | RO ---
DATE OF PROCEDURE: 01/21/202 PREOPERATIVE DIAGNOSIS: Right elbow septic bursitis. POSTOPERATIVE DIAGNOSIS: Right elbow traumatic bursitis. PREOPERATIVE PLAN: Right elbow irrigation and debridement. PROCEDURE PERFORMED: Right elbow irrigation and debridement. SURGEON: Himanshu Silverman MD MEDICAL MALPRACTICE PARALEGAL: None. ANESTHESIA: General anesthetic. SETTLEMENT WORKER: Dr. Laura OPERATIVE PREAMBLE: This 69-year-old man developed elbow swelling, pain and redness over the course of 3 weeks. Due to elevated inflammatory markers and possibility for septic bursitis with no other infectious sources, decided to proceed with irrigation and debridement of his right elbow. I saw him in preoperative holding, reiterated the risks, marked the upper extremity and proceeded to surgery. DESCRIPTION OF PROCEDURE: The patient was brought to the operating theater. He was placed supine on the operating table. 18-inch tourniquet was applied to the upper extremity, appropriately padded. All bony prominences were padded. Arm table was used on the patient's right side. Sequential compression devices (SCDs) were used on the legs. Alfredo Hugger was used. Antibiotics were held until cultures were obtained. General anesthesia was induced. Limb was prepped and draped in the usual sterile fashion allowing over 3 minutes prep solution drying time. Preoperative time-out was performed confirming the site, the patient and surgery. I began by making a small longitudinal curvilinear incision centered over the posterior aspect of the elbow. I curved this laterally over the tip of the olecranon. The total length of the incision was approximately 2 inches long. I took intraoperative cultures using two different tubes as well as a tissue sample for Gram stain, culture and sensitivity, aerobes, anaerobes, AFB and fungus. There is no obvious purulence in the posterior aspect of the elbow. No obvious triceps tendon repair. This appeared to be old blood clot hematoma, and this was evacuated appropriately. There was about 4 mL of this old appearing blood clot. There is no obvious other abnormalities. The bursa was completely excised. Six liters of normal saline was irrigated throughout the incision with 2 grams of IV Ancef in the solution. Tourniquet was inflated at the start of the case and deflated prior to the end of the case. Total tourniquet time 18 minutes. I closed the subcutaneous tissue with #2-0 Vicryl sutures, as well as skin with #3-0 Ethilon horizontal mattress fashion. 15 mL of 0.25% Marcaine was instilled proximal to the incision, as well as in and around the incision site. Skin was cleaned with a wet and dry dressing followed by application of Adaptic, 4 x8 gauze, ABD dressing and a sterile 6-inch Niles bandage wrapped over top. Tourniquet was removed and all drapes were removed as well. The patient was woken up from general anesthetic, transferred off the operating table, and taken to the postanesthetic care unit in stable position. All sponge, needle, and instrument counts were correct. No complications. Samples were sent for Gram stain, culture and sensitivities (C and S), aerobes and anaerobes. PLAN: The patient is to be range of motion as tolerated, weightbearing as tolerated on the upper extremity. Discontinue the sutures at 2 weeks' time. We will follow up on the cultures. He will be readmitted to the hospitalists to ensure that he is having good clinical response to the surgical procedure, as well as antibiotics. Although, at this point, I have overall low suspicion that this was a septic bursitis. I would like him to followup in the clinic in 2 weeks' time as well.
[2020-01-22 20:00] VITALS: BP 119/67
[2020-01-22] MEDS ORDERED: FUROSEMIDE 40MG/4ML VIAL (J1940) IV SCH (20:30)
[2020-01-22 23:40] VITALS: BP 129/63
[2020-01-22] MEDS: zolPIDEM TARTRATE 5 MG TAB PO SCH (23:49)
[2020-01-22 23:55] VITALS: BP 131/66
[2020-01-23 00:45] VITALS: BP 135/66
[2020-01-23 01:40] VITALS: BP 134/65
[2020-01-23] MEDS: ceFAZolin SOD 1 GM in D5W MINI-BAG PLUS 50 ML IV SCH ×3 (05:46→21:21)
[2020-01-23] MEDS: LEVOTHYROXINE 25MCG TABLET (0.025MG) PO SCH (05:46)
[2020-01-23 06:03] VITALS: BP 158/100
[2020-01-23] MEDS: SYMBICORT 160/4.5MCG INHALER 6GM INH SCH ×2 (08:04→20:01)
[2020-01-23 08:06] LABS: BASO # 0.1 10^3/uL (0.0-0.2); BASO % 0.5 % (0.0-1.0); EOS # 0.7 10^3/uL (0.0-0.5); EOS % 6.7 % (0.0-3.0); HEMATOCRIT 27.8 % (42.0-52.0); HEMOGLOBIN 8.6 g/dl (13.5-17.5); LYMPH # 2.6 10^3/uL (1.5-5.0); LYMPH % 26.1 % (24.0-44.0); MEAN CORPUSCULAR HEMOGLOBIN 26.1 pg (27.0-33.0); MEAN CORPUSCULAR HGB CONC 30.9 g/dl (32.0-36.5); MEAN CORPUSCULAR VOLUME 84.2 fl (80.0-96.0); MONO # 0.8 10^3/uL (0.0-0.8); MONO % 8.1 % (0.0-5.0); NEUTROPHILS # 5.7 10^3/uL (1.5-8.5); NEUTROPHILS % 57.7 % (36.0-66.0); PLATELET COUNT, AUTOMATED 328 10^3/uL (150-450); WHITE BLOOD COUNT 9.9 10^3/uL (4.0-10.0)
[2020-01-23 08:19] LABS: BLOOD UREA NITROGEN 10 MG/DL (7-18); CALCIUM LEVEL 7.2 MG/DL (8.8-10.2); CARBON DIOXIDE LEVEL 23 MEQ/L (21-32); CHLORIDE LEVEL 110 MEQ/L (98-107); CREATININE FOR GFR 0.72 MG/DL (0.70-1.30); GLOMERULAR FILTRATION RATE > 60.0 (>49); GLUCOSE, FASTING 119 MG/DL (70-100); POTASSIUM SERUM 3.4 MEQ/L (3.5-5.1); SODIUM LEVEL 143 MEQ/L (136-145)
[2020-01-23] MEDS: FINASTERIDE 5 MG TAB PO SCH (08:54)
[2020-01-23] MEDS: HumaLOG INSULIN (NovoLOG) PER UNIT SC SCH ×4 (08:54→20:27)
[2020-01-23] MEDS: PREGABALIN 100 MG CAP (LYRICA) PO SCH ×2 (08:54→21:19)
[2020-01-23] MEDS: POTASSIUM CHLORIDE 10 MEQ SR TABLET PO SCH (08:54)
[2020-01-23 08:55] VITALS: BP 147/81
[2020-01-23] MEDS: DULoxetine 30 MG CAP (CYMBALTA) PO SCH (08:55)
[2020-01-23] MEDS: OMEPRAZOLE 20 MG CAP PO SCH ×2 (08:55→21:20)
[2020-01-23] MEDS: ATORVASTATIN 20 MG TAB PO SCH (08:55)
[2020-01-23] MEDS: DOCUSATE SODIUM 100 MG CAP PO SCH ×2 (08:55→21:00)
[2020-01-23] MEDS: TAMSULOSIN 0.4 MG CAP PO SCH (08:55)
[2020-01-23] MEDS: FOLIC ACID 1 MG TAB PO SCH (08:55)
[2020-01-23] MEDS: amLODIPine 5 MG TAB PO SCH (08:55)
[2020-01-23] MEDS: APIXABAN 5 MG TAB (ELIQUIS) PO SCH ×2 (09:14→21:20)
[2020-01-23 14:00] VITALS: BP 144/77
--- NOTE | 2020-01-23 16:22 | IPNPDOC ---
Subjective Date Seen The patient was seen on 01/23/20. Subjective Chief Complaint/HPI Complaining of right elbow pain and some stiffness as expected after the surgical procedure yesterday. No fever or chills, received 1 unit of PRBC transfusion. He says he is feeling very good today. Says he has been hungry since last night and able to finish all his meals which is a great improvement as he had been able to eat only a few bites at home for months. Objective Physical Examination General Exam: Positive: Alert, Cooperative, No Acute Distress Eye Exam: Positive: PERRLA, Conjunctiva & lids normal, EOMI; Negative: Sclera icteric ENT Exam: Positive: Atraumatic, Mucous membr. moist/pink, Pharynx Normal Neck Exam: Positive: Supple; Negative: JVD, thyromegaly Chest Exam: Positive: Clear to auscultation, Normal air movement Heart Exam: Positive: Rate Normal, Regular Rhythm, Normal S1, Normal S2; Negative: Murmurs, Rubs Abdomen Exam: Positive: Normal bowel sounds, Soft; Negative: Tenderness, Hepatospenomegaly Extremity Exam: Positive: Other (right elbow with compression bandage. ); Negative: Clubbing, Cyanosis, Edema Skin Exam: Positive: Nl turgor and temperature, Lesion (excoriations on both upper extremities and legs. ), Other skin issue (Very lerge bruise on the right arm ); Negative: Breakdown Assessment /Plan Assessment 69 year old male follows [facility] with new atrial fibrillation diagnosed in December 2019 started on Eliquis for the first time presented to the ED with large area of Echymosis on his right arm which he noticed 3 to 4 days ago for which he went to see his PMD and PMD sent him to ED. He also reported swelling of the right elbow off and on for the past 3 weeks. He denied any falls or trauma that he remembers. He does drink a fair amount of alcohol daily. The bruising started above his elbow and progressed upward to involve the whole of the medial and back aspect of the right arm. It is painless. He also reported eruptions on his arms and legs which actually look like scratches or small lacerations which are scabbed over. He does report itching. About his right elbow swelling he reports that it had burst and drained some fluid and had gone down but then has come back again. It is not painful at this time. Patient is admitted for possible infected right olecranon bursitis. Possible right olecranon septic bursitis have been seen by ortho possible drainage tomorrow as patient does not appear septic and this will give 24 hours of eliquis will continue cefazolin CXR clear, UA clear no other source of infection identified. S/P Incision and drainage and washout on 01/22/20 cultures pending. Lactacidosis I think this is due to alcohol I do not think this is related to sepsis as the crp is not much elevated and patient does not appear septic. procalcitonin 0.23. Hypokalemia replaced Paroxysmal Afib now in sinus rhythm on eliquis Acute on Chronic Anemia Has Diverticulosis, hemorrhoids Duodenal ulcer perforation in Jul 2018 H/O GIB Erosive esophagitis, gastritis, duodenitis in Feb 2019 Ferritin slightly low normal at 37. Poor oral intake vit b12, folate not low Had SPEP, serum and urine immunofixation neg for MM. Patient may be having slow GI losses. Will defer to Primary for referral to [facility] [employer] Dr Kim for follow, up S/p 1 unit o PRBC T3 compression fracture, age indeterminate found in december 2019 Type 2 diabetes will continue levemir and lispro as per sliding scale FA AC and HS. Dyslipidemia. statin Hypothyroidism. synthroid Chronic pain and neuropathy. gabapentin Vitamin D deficiency. BPH. finasteride, flomax Reflux PPI Hypertension. amlodipine continued. Will hold lisinopril for now. Alcohol abuse. this is probably causing the elevated lactacidosis rather than sepsis. Aortic sclerosis No Aortic stenosis or regurgitation. 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 H/O left sided rib fractures. pain control with cymbalta, lyrica COPD symbicort Smoker Smoking cessation discussed Patient requested nicotine gums. Plan/VTE VTE Prophylaxis Ordered?: Yes VS, I&O, 24H, Fishbone Vital Signs/I&O Vital Signs Date Time Temp Pulse Resp B/P (MAP) Pulse Ox O2 Delivery O2 Flow Rate FiO2 01/23/20 06:03 96.6 73 18 158/100 (119) 97 Room Air 01/22/20 13:46 3 I&O- Last 24 Hours up to 6 AM 01/23/20 05:59 Intake Total 2550 ml Output Total 0 ml Balance 2550 ml Laboratory Data 24H LABS Laboratory Tests 2 01/22/20 08:14: Lactic Acid Level 2.4*H 01/22/20 11:16: Bedside Glucose (Misc Panel) 109 01/22/20 16:12: Lactic Acid Followup at 4 Hours 2.9*H 01/22/20 17:42: Bedside Glucose (Misc Panel) 158H 01/22/20 20:28: Bedside Glucose (Misc Panel) 122H Microbiology Microbiology 01/22/20 Gram Stain - Final, Resulted 01/22/20 Wound Culture, Resulted Pending 01/22/20 Anaerobic Culture, Resulted Pending 01/22/20 Respiratory Virus Panel (PCR) ([facility]) - Final, Complete 01/21/20 Blood Culture - Preliminary, Resulted No growth after 24 hours . All specim... 01/21/20 Blood Culture - Preliminary, Resulted No growth after 24 hours . All specim... VADIM ALVAREZ MD Jan 23, 2020 07:53
[2020-01-23 19:55] VITALS: BP 106/66
[2020-01-23] MEDS: zolPIDEM TARTRATE 5 MG TAB PO SCH (21:20)
[2020-01-24] MEDS: LEVOTHYROXINE 25MCG TABLET (0.025MG) PO SCH (05:36)
[2020-01-24] MEDS: ceFAZolin SOD 1 GM in D5W MINI-BAG PLUS 50 ML IV SCH (05:37)
[2020-01-24 05:45] VITALS: BP 163/92
[2020-01-24 06:52] LABS: BASO # 0.1 10^3/uL (0.0-0.2); BASO % 0.5 % (0.0-1.0); EOS # 0.6 10^3/uL (0.0-0.5); EOS % 5.8 % (0.0-3.0); HEMATOCRIT 27.9 % (42.0-52.0); HEMOGLOBIN 8.5 g/dl (13.5-17.5); LYMPH # 2.6 10^3/uL (1.5-5.0); LYMPH % 23.8 % (24.0-44.0); MEAN CORPUSCULAR HEMOGLOBIN 26.1 pg (27.0-33.0); MEAN CORPUSCULAR HGB CONC 30.5 g/dl (32.0-36.5); MEAN CORPUSCULAR VOLUME 85.6 fl (80.0-96.0); MONO # 0.8 10^3/uL (0.0-0.8); MONO % 7.4 % (0.0-5.0); NEUTROPHILS # 6.7 10^3/uL (1.5-8.5); PLATELET COUNT, AUTOMATED 333 10^3/uL (150-450); RED BLOOD COUNT 3.26 10^6/uL (4.30-6.10)
[2020-01-24 07:05] LABS: BLOOD UREA NITROGEN 11 MG/DL (7-18); CALCIUM LEVEL 7.2 MG/DL (8.8-10.2); CARBON DIOXIDE LEVEL 23 MEQ/L (21-32); CHLORIDE LEVEL 109 MEQ/L (98-107); CREATININE FOR GFR 0.77 MG/DL (0.70-1.30); GLOMERULAR FILTRATION RATE > 60.0 (>49); GLUCOSE, FASTING 160 MG/DL (70-100); POTASSIUM SERUM 3.7 MEQ/L (3.5-5.1); SODIUM LEVEL 140 MEQ/L (136-145)
--- NOTE | 2020-01-24 07:43 | IPNPDOC ---
Subjective Date Seen The patient was seen on 01/24/20. Subjective Chief Complaint/HPI Feeling well wants to go home. However i explained as the cultures are not back yet he will have to wait for it so that we can decide on the antibiotics. Eating well. No fever or chills. Objective Physical Examination General Exam: Positive: Alert, Cooperative, No Acute Distress Eye Exam: Positive: PERRLA, Conjunctiva & lids normal, EOMI; Negative: Sclera icteric ENT Exam: Positive: Atraumatic, Mucous membr. moist/pink, Pharynx Normal Neck Exam: Positive: Supple; Negative: JVD, thyromegaly Chest Exam: Positive: Clear to auscultation, Normal air movement Heart Exam: Positive: Rate Normal, Regular Rhythm, Normal S1, Normal S2; Negative: Murmurs, Rubs Abdomen Exam: Positive: Normal bowel sounds, Soft; Negative: Tenderness, Hepatospenomegaly Extremity Exam: Positive: Other (right elbow with compression bandage. ); Negative: Clubbing, Cyanosis, Edema Skin Exam: Positive: Nl turgor and temperature, Lesion (excoriations on both upper extremities and legs. ), Other skin issue (Very lerge bruise on the right arm ); Negative: Breakdown Assessment /Plan Assessment 69 year old male follows at the [facility] with new atrial fibrillation diagnosed in December 2019 started on Eliquis for the first time presented to the ED with large area of Echymosis on his right arm which he noticed 3 to 4 days ago for which he went to see his PMD and PMD sent him to ED. He also reported swelling of the right elbow off and on for the past 3 weeks. He denied any falls or trauma that he remembers. He does drink a fair amount of alcohol daily. The bruising started above his elbow and progressed upward to involve the whole of the medial and back aspect of the right arm. It is painless. He also reported eruptions on his arms and legs which actually look like scratches or small lacerations which are scabbed over. He does report itching. About his right elbow swelling he reports that it had burst and drained some fluid and had gone down but then has come back again. It is not painful at this time. Patient is admitted for possible infected right olecranon bursitis. Possible right olecranon septic bursitis have been seen by ortho possible drainage tomorrow as patient does not appear s eptic and this will give 24 hours of eliquis will continue cefazolin CXR clear, UA clear no other source of infection identified. S/P Incision and drainage and washout on 01/22/20 cultures pending. Lactacidosis I think this is due to alcohol I do not think this is related to sepsis as the crp is not much elevated and patient does not appear septic. procalcitonin 0.23. Hypokalemia replaced Paroxysmal Afib now in sinus rhythm on eliquis Acute on Chronic Anemia Has Diverticulosis, hemorrhoids Duodenal ulcer perforation in Jul 2018 H/O GIB Erosive esophagitis, gastritis, duodenitis in Feb 2019 Ferritin slightly low normal at 37. Poor oral intake vit b12, folate not low Had SPEP, serum and urine immunofixation neg for MM. Patient may be having slow GI losses. Will defer to Primary for referral to Supervisor [facility] Dr Kim for follow, up S/p 1 unit of PRBC T3 compression fracture, age indeterminate found in december 2019 Type 2 diabetes will continue levemir and lispro as per sliding scale FA AC and HS. Dyslipidemia. statin Hypothyroidism. synthroid Chronic pain and neuropathy. gabapentin Vitamin D deficiency. BPH. finasteride, flomax Reflux PPI Hypertension. amlodipine continued. Will hold lisinopril for now. Alcohol abuse. this is probably causing the elevated lactacidosis rather than sepsis. Aortic sclerosis No Aortic stenosis or regurgitation. 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 H/O left sided rib fractures. pain control with cymbalta, lyrica COPD symbicort Smoker Smoking cessation discussed Patient requested nicotine gums. Plan/VTE VTE Prophylaxis Ordered?: Yes VS, I&O, 24H, Fishbone Vital Signs/I&O Vital Signs Date Time Temp Pulse Resp B/P (MAP) Pulse Ox O2 Delivery O2 Flow Rate FiO2 01/24/20 05:45 98.3 73 20 163/92 (115) 97 Room Air 01/22/20 13:46 3 I&O- Last 24 Hours up to 6 AM 01/24/20 05:59 Intake Total 1900 ml Output Total 0 ml Balance 1900 ml Laboratory Data 24H LABS Laboratory Tests 2 01/23/20 07:41: Immature Granulocyte % (Auto) 0.9, Neutrophils (%) (Auto) 57.7, Lymphocytes (%) (Auto) 26.1, Monocytes (%) (Auto) 8.1H, Eosinophils (%) (Auto) 6.7H, Basophils (%) (Auto) 0.5, Neutrophils # (Auto) 5.7, Lymphocytes # (Auto) 2.6, Monocytes # (Auto) 0.8, Eosinophils # (Auto) 0.7H, Basophils # (Auto) 0.1, Nucleated Red Blood Cells % (auto) 0.0, Anion Gap 10, Glomerular Filtration Rate > 60.0, Calcium Level 7.2L 01/23/20 11:40: Bedside Glucose (Misc Panel) 171H 01/23/20 16:50: Bedside Glucose (Misc Panel) 155H 01/23/20 19:57: Bedside Glucose (Misc Panel) 122H 01/24/20 06:30: Bedside Glucose (Misc Panel) 153H 01/24/20 06:36: Immature Granulocyte % (Auto) 1.5, Neutrophils (%) (Auto) 61.0, Lymphocytes (%) (Auto) 23.8L, Monocytes (%) (Auto) 7.4H, Eosinophils (%) (Auto) 5.8H, Basophils (%) (Auto) 0.5, Neutrophils # (Auto) 6.7, Lymphocytes # (Auto) 2.6, Monocytes # (Auto) 0.8, Eosinophils # (Auto) 0.6H, Basophils # (Auto) 0.1, Nucleated Red Blood Cells % (auto) 0.2H, Anion Gap 8, Glomerular Filtration Rate > 60.0, Calcium Level 7.2L CBC/BMP Laboratory Tests 01/23/20 07:41 01/24/20 06:36 Microbiology Microbiology 01/22/20 Gram Stain - Final, Resulted 01/22/20 Wound Culture, Resulted Pending 01/22/20 Anaerobic Culture, Resulted Pending 01/22/20 Respiratory Virus Panel (PCR) ([facility]) - Final, Complete 01/21/20 Blood Culture - Preliminary, Resulted No Growth after 48 hours. All Specime... 01/21/20 Blood Culture - Preliminary, Resulted No Growth after 48 hours. All Specime... Discharge Summary General Date of Admission Jan 21, 2020 at 10:24 Date of Discharge 01/24/20 Discharge Summary PROCEDURES PERFORMED DURING STAY: Right elbow irrigation and debridement on 01/22/20 DISCHARGE DIAGNOSES: Right olecranon septic bursitis Lactacidosis Acute on Chronic Anemia Hypokalemia SECONDARY DIAGNOSIS: T3 compression fracture, age indeterminate found in December 2019 Type 2 diabetes Dyslipidemia. Paroxysmal Atrial fibrillation. Hypothyroidism. Chronic Anemia Chronic pain and neuropathy. Vitamin D deficiency. BPH. Reflux Hypertension. Alcohol abuse. 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 H/O left sided rib fractures. H/o Clostridium difficile colitis. COMPLICATIONS/CHIEF COMPLAINT: Septic Bursitis Of Elbow. HOSPITAL COURSE: 69 year old male follows at the [facility] with new atrial fibrillation diagnosed in December 2019 started on Eliquis for the first time presented to the ED with large area of Echymosis on his right arm which he noticed 3 to 4 days prior to admission for which he went to see his PMD and PMD sent him to ED. He also reported swelling of the right elbow off and on for the past 3 weeks. He was found to have suspected septic right olecranon bursitis. He underwent incision and drainage with washout with Dr Silverman. The aerobic and anaerobic cultures came back negative. His large bruising on the right arm was felt to be due to possibly a minor trauma and being on eliquis. He was given cefazolin in the hospital and discharged with keflex. He was independent in his mobility and ADLS in the hospital . Though his gait was board based but he was steady on his feet and walking around the halls without any issues. He was felt to be at his baseline functional status so was discharged home in a stable condition. DISCHARGE MEDICATIONS: Please see below. ALLERGIES: Please see below. PHYSICAL EXAMINATION ON DISCHARGE: As above. LABORATORY DATA: Please see below. ACTIVITY: [As tolerated]. DIET: Carb consistent. DISPOSITION: 01 Home, Self-Care. DISCHARGE INSTRUCTIONS: Follow up with PMD in 1 day Follow up with Dr Himanshu Silverman DISCHARGE CONDITION: [Stable]. TIME SPENT ON DISCHARGE: 35 minutes. Vital Signs/I&Os Vital Signs Date Time Temp Pulse Resp B/P (MAP) Pulse Ox O2 Delivery O2 Flow Rate FiO2 01/24/20 14:00 98.4 85 19 126/63 (84) 95 Room Air 01/22/20 13:46 3 I&O- Last 24 Hours up to 6 AM 01/24/20 06:00 Intake Total 1600 ml Output Total 0 ml Balance 1600 ml Laboratory Data Labs 24H Laboratory Tests 2 01/23/20 19:57: Bedside Glucose (Misc Panel) 122H 01/24/20 06:30: Bedside Glucose (Misc Panel) 153H 01/24/20 06:36: Immature Granulocyte % (Auto) 1.5, Neutrophils (%) (Auto) 61.0, Lymphocytes (%) (Auto) 23.8L, Monocytes (%) (Auto) 7.4H, Eosinophils (%) (Auto) 5.8H, Basophils (%) (Auto) 0.5, Neutrophils # (Auto) 6.7, Lymphocytes # (Auto) 2.6, Monocytes # (Auto) 0.8, Eosinophils # (Auto) 0.6H, Basophils # (Auto) 0.1, Nucleated Red Blood Cells % (auto) 0.2H, Anion Gap 8, Glomerular Filtration Rate > 60.0, Calcium Level 7.2L 01/24/20 11:28: Bedside Glucose (Misc Panel) 179H CBC/BMP Laboratory Tests 01/24/20 06:36 FSBS Laboratory Tests Test 01/23/20 19:57 01/24/20 06:30 01/24/20 11:28 Range/Units Bedside Glucose (Misc Panel) 122 153 179 80-115 MG/DL Microbiology Microbiology 01/22/20 Gram Stain - Final, Complete 01/22/20 Wound Culture - Final, Complete 01/22/20 Anaerobic Culture - Final, Complete 01/22/20 Respiratory Virus Panel (PCR) ([facility]) - Final, Complete 01/21/20 Blood Culture - Preliminary, Resulted No Growth after 72 hours. All specime... 01/21/20 Blood Culture - Preliminary, Resulted No Growth after 72 hours. All specime... Discharge Medications Scheduled Amlodipine Besylate (Amlodipine Besylate) 5 Mg Tablet, 7.5 MG PO DAILY, (Reported) Apixaban (Eliquis) 5 Mg Tablet, 5 MG PO BID, (Reported) Aspirin (Aspirin EC) 81 Mg Tab, 81 MG PO DAILY, (Reported) Atorvastatin Calcium (Atorvastatin Calcium) 80 Mg Tablet, 40 MG PO DAILY, (Reported) Budesonide/Formoterol (Symbicort 160-4.5 Mcg Inhaler) 6 Gm Hfa.aer.ad, 2 PUFF INH BID, (Reported) Cephalexin (Keflex) 500 Mg Capsule, 1 CAP PO BID Cholecalciferol (Vitamin D3) (Vitamin D3) 1,000 Unit Tablet, 2,000 UNITS PO DAILY, (Reported) Clindamycin Phosphate (Clindamycin Phosphate) 1% 30ML Solution, 1 DOSE TOP BID, (Reported) APPLY TO LESIONS ON ARMS AND LEGS Collagenase Clostridium Hist. (Santyl) 30 Gm Oint...g., 1 DOSE TOP DAILY, (Reported) APPLY TO LESIONS ON ARMS AND LEGS Duloxetine Hcl (Duloxetine HCl) 30 Mg Cap, 30 MG PO DAILY, (Reported) Finasteride (Finasteride) 5 Mg Tab, 5 MG PO DAILY, (Reported) Folic Acid (Folic Acid) 1 Mg Tab, 1 MG PO DAILY, (Reported) Insulin Human Lispro (Novolog) 100 Unit/1 Ml Vial, 1 DOSE SC AC, (Reported) PER SLIDING SCALE Lanolin Alcohol/Mo/W.pet/[place] (Eucerin Creme) 454 Gm Cream..g., 1 DOSE TOP BID, (Reported) APPLY TO ARMS AND LEGS Levothyroxine Sodium (Levothyroxine Sodium) 25 Mcg Tab, 25 MCG PO DAILY, (Reported) Lisinopril (Lisinopril) 40 Mg Tablet, 20 MG PO DAILY, (Reported) Melatonin (Melatonin) 3 Mg Tablet, 3 MG PO QHS, (Reported) Multivitamins (Thera M Plus Tablet) 1 Tab Tab, 1 TAB PO DAILY, (Reported) [place]-3 Fatty Acids/Fish Oil (Fish Oil 1,000 mg Capsule) 1 Each Capsule, 2,000 MG PO BID, (Reported) Omeprazole (Omeprazole) 20 Mg Capsule.dr, 20 MG PO BID, (Reported) Pregabalin (Lyrica) 300 Mg Capsule, 300 MG PO BID, (Reported) Sod Phos Di, Curry/K Phos Curry (K-Phos Neutral Tablet) 1 Tab Tab, 1 TAB PO DAILY, (Reported) Tamsulosin HCl (Flomax) 0.4 Mg Cap, 0.4 MG PO DAILY, (Reported) Vitamin B Complex (Vitamin B Complex) 1 Each Tablet, 1 TAB PO DAILY, (Reported) Zolpidem Tartrate (Zolpidem Tartrate) 10 Mg Tablet, 10 MG PO QHS, (Reported) Scheduled PRN Acetaminophen (Acetaminophen) 500 Mg Tablet, 1,000 MG PO Q6H PRN for PAIN, (Reported) Nicotine Polacrilex (Nicotine Gum) 4 Mg Gum, 4 MG MT PRN PRN for NICOTINE WITHDR AWAL, (Reported) Allergies Coded Allergies: No Known Allergies (Unverified , 02/25/19) VADIM ALVAREZ MD Jan 24, 2020 07:43
[2020-01-24] MEDS: FOLIC ACID 1 MG TAB PO SCH (08:10)
[2020-01-24] MEDS: POTASSIUM CHLORIDE 10 MEQ SR TABLET PO SCH (08:10)
[2020-01-24] MEDS: TAMSULOSIN 0.4 MG CAP PO SCH (08:10)
[2020-01-24] MEDS: OMEPRAZOLE 20 MG CAP PO SCH (08:10)
[2020-01-24] MEDS: APIXABAN 5 MG TAB (ELIQUIS) PO SCH (08:10)
[2020-01-24] MEDS: DULoxetine 30 MG CAP (CYMBALTA) PO SCH (08:10)
[2020-01-24] MEDS: FINASTERIDE 5 MG TAB PO SCH (08:10)
[2020-01-24] MEDS: HumaLOG INSULIN (NovoLOG) PER UNIT SC SCH ×2 (08:10→12:24)
[2020-01-24] MEDS: PREGABALIN 100 MG CAP (LYRICA) PO SCH (08:11)
[2020-01-24] MEDS: ATORVASTATIN 20 MG TAB PO SCH (08:11)
[2020-01-24 08:13] VITALS: BP 148/75
[2020-01-24] MEDS: DOCUSATE SODIUM 100 MG CAP PO SCH (08:13)
[2020-01-24] MEDS: amLODIPine 5 MG TAB PO SCH (08:13)
[2020-01-24] MEDS: SYMBICORT 160/4.5MCG INHALER 6GM INH SCH (08:28)
[2020-01-24 14:00] VITALS: BP 126/63
[2020-01-24] MEDS ORDERED: KEFL500C17 PO (14:39)
== END 2020-01-24 15:29 | disposition home or self-care (01) | DRG 501 ==
LOC: M ED 07:22 → M ED INP 10:24 → ENRESERVDT 10:37 → ENRESERVTM 10:37 → M MS5PR 10:54 → UNDODISIN 01-24 15:03
PROVIDERS: ADMIT Internal Medicine Nephrology; ATTEND Internal Medicine Nephrology
PROC: 0JCG0ZZ Extirpation of Matter from Right Lower Arm Subcutaneous Tissue and Fascia, Open Approach (ICD-10-PCS; 2020-01-22)
PROC: 0MB30ZZ Excision of Right Elbow Bursa and Ligament, Open Approach (ICD-10-PCS; principal; 2020-01-22 13:30)
DX: M70.21 Olecranon bursitis, right elbow (principal); E87.2 Acidosis; I10 Essential (primary) hypertension; F17.210 Nicotine dependence, cigarettes, uncomplicated; I48.0 Paroxysmal atrial fibrillation; E11.40 Type 2 diabetes mellitus with diabetic neuropathy, unspecified; E78.5 Hyperlipidemia, unspecified; E03.9 Hypothyroidism, unspecified; K57.90 Diverticulosis of intestine, part unspecified, without perforation or abscess without bleeding; D64.9 Anemia, unspecified; K64.8 Other hemorrhoids; E55.9 Vitamin D deficiency, unspecified; I35.8 Other nonrheumatic aortic valve disorders; N40.0 Benign prostatic hyperplasia without lower urinary tract symptoms; K21.9 Gastro-esophageal reflux disease without esophagitis; F10.10 Alcohol abuse, uncomplicated; K29.70 Gastritis, unspecified, without bleeding; Z79.01 Long term (current) use of anticoagulants; Z79.82 Long term (current) use of aspirin; Z87.81 Personal history of (healed) traumatic fracture; Z79.4 Long term (current) use of insulin; Z79.899 Other long term (current) drug therapy; Z11.59 Encounter for screening for other viral diseases

== ENCOUNTER → 2020-02-16 | Emergency (ER) | payer MEDICARE, BC, OTHER ==
[~2020-02-16] MED LIST changes: -AMLO10TA5 PO; +AMLO1TAB24 PO; +AMLO1TAB25 PO; -AMLO5TAB6 PO; +ATOR80TA59 PO; +AUGM500T34 PO; +BACI500O8 TOP; +CLIN1SOL TOP; +CYAN100050 PO; +CYMB1CAP4 PO; +D31000TA2 PO; +DULO1CAP4 PO; +EQL50TAB2 PO; +EUCECRE8 TOP; +FERR32TA PO; +GLUC1KIT IM; +INSUHUMDS SC; +IODOGEL TOP; +KEFL500C17 PO; +MELA3TAB30 PO; +MELA3TAB7 PO; +MOXI400T11 PO; +NICO21DI38 TD; +NICO4GUM44 MT; +OMEP-218 PO; +OMEP-221 PO; +SYMB16INH INH; -VITAD1000T PO; +VITS42.53 TOP
--- NOTE | 2020-03-21 16:06 | ECGEPIP ---
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
--- NOTE | 2020-04-01 13:42 | REP ---
AP SITTING PORTABLE CHEST X-RAY: COMPARISON: Portable chest dated 12/12/19. HISTORY: Confusion. FINDINGS: The lung bangura are clear and unchanged. Cardiac size is normal, unchanged. There are multiple bilateral, age indeterminant rib fractures likely present on the comparison study. There is an old fracture of the left humeral neck. This was excluded at the film margin on the prior study. IMPRESSION: No acute cardiopulmonary findings. Multiple bilateral age indeterminant rib fractures. Old left humeral neck fracture. MTDD
[2020-04-02 09:28] LABS: MEAN CORPUSCULAR HEMOGLOBIN 24.8 pg (27.0-33.0); MEAN CORPUSCULAR HGB CONC 30.1 g/dl (32.0-36.5); MEAN CORPUSCULAR VOLUME 82.3 fl (80.0-96.0); PLATELET COUNT, AUTOMATED 301 10^3/uL (150-450); RED BLOOD COUNT 2.54 10^6/uL (4.30-6.10); WHITE BLOOD COUNT 14.1 10^3/uL (4.0-10.0)
[2020-04-02 09:30] LABS: INR 1.31; PARTIAL THROMBOPLASTIN TIME 38.5 SECONDS (24.2-38.5); PROTHROMBIN TIME 16.6 SECONDS (12.5-14.3)
[2020-04-02 10:05] LABS: HEMATOCRIT 20.9 % (42.0-52.0); HEMOGLOBIN 6.3 g/dl (13.5-17.5)
[2020-05-10 03:06] LABS: AMYLASE 27 U/L (25-115); BLOOD UREA NITROGEN 25 MG/DL (7-18); CARBON DIOXIDE LEVEL 26 MEQ/L (21-32); CHLORIDE LEVEL 97 MEQ/L (98-107); CK-MB VALUE MASS < 1.0 NG/ML (<3.6); CPK CREATINE PHOSPHOKINASE 83 U/L (39-308); CREATININE FOR GFR 1.61 MG/DL (0.70-1.30); ETHYL ALCOHOL (ETHANOL) < 0.003 % (0.000-0.010); GLOMERULAR FILTRATION RATE 45.7 (>49); GLUCOSE, FASTING 194 MG/DL (70-100); LIPASE 69 U/L (73-393); PHOSPHORUS LEVEL 2.2 MG/DL (2.5-4.9); SODIUM LEVEL 133 MEQ/L (136-145); TROPONIN I < 0.02 NG/ML (< 0.10)
== END | disposition left against medical advice (07) ==
LOC: M ED 14:31
DX: F10.129 Alcohol abuse with intoxication, unspecified (principal); Z53.21 Procedure and treatment not carried out due to patient leaving prior to being seen by health care provider

== ENCOUNTER 2020-02-18 16:06 | Inpatient (IN) | payer MEDICARE, BC, OTHER ==
[~2020-02-18] VITALS: Ht 180.3 cm; Wt 86.4 kg
[~2020-02-18 16:06] MED LIST changes: +ACAMPROSATE CALCIUM 333 MG TABLET (CAMPRAL) ONE; -AUGM500T34 PO; -BACI500O8 TOP; -CYAN100050 PO; -CYMB1CAP4 PO; -DULO1CAP4 PO; -FERR32TA PO; -GLUC1KIT IM; -INSUHUMDS SC; -IODOGEL TOP; -MELA3TAB7 PO; -MOXI400T11 PO; -NICO21DI38 TD; -OMEP-218 PO; -OMEP-221 PO; -VITS42.53 TOP
[2020-02-18] MEDS ORDERED: MAGNESIUM SULFATE 1GM/100ML D5W BAG (10MG/ML) As Ordered ONE ×2 (20:45→21:50)
[2020-02-18] MEDS ORDERED: zolPIDEM TARTRATE 5 MG TAB As Ordered ONE (21:49)
[2020-02-18] MEDS ORDERED: OMEPRAZOLE 20 MG CAP As Ordered ONE (21:49)
[2020-02-18] MEDS ORDERED: PREGABALIN 100 MG CAP (LYRICA) As Ordered ONE (21:49)
[2020-02-19] MEDS ORDERED: LEVOTHYROXINE 25MCG TABLET (0.025MG) As Ordered ONE (06:12)
[2020-02-19] MEDS ORDERED: VITAMIN D 1,000 INTERNATIONAL UNITS TABLET As Ordered ONE (08:25)
[2020-02-19] MEDS ORDERED: ATORVASTATIN 20 MG TAB As Ordered ONE (08:25)
[2020-02-19] MEDS ORDERED: MULTIVITAMINS/MINERALS THERAP 1 TAB As Ordered ONE (08:25)
[2020-02-19] MEDS ORDERED: PREGABALIN 100 MG CAP (LYRICA) As Ordered ONE (08:25)
[2020-02-19] MEDS ORDERED: OMEPRAZOLE 20 MG CAP As Ordered ONE ×2 (08:25→20:52)
[2020-02-19] MEDS ORDERED: FINASTERIDE 5 MG TAB As Ordered ONE (08:26)
[2020-02-19] MEDS ORDERED: amLODIPine 5 MG TAB As Ordered ONE (08:26)
[2020-02-19] MEDS ORDERED: THIAMINE 100 MG TAB As Ordered ONE (08:26)
[2020-02-19] MEDS ORDERED: lisinopriL 20 MG TAB As Ordered ONE (08:26)
[2020-02-19] MEDS ORDERED: CYANOCOBALAMIN 500 MCG TAB As Ordered ONE (08:26)
[2020-02-19] MEDS ORDERED: DULoxetine 30 MG CAP (CYMBALTA) As Ordered ONE (08:26)
[2020-02-19] MEDS ORDERED: FOLIC ACID 1 MG TAB As Ordered ONE (08:26)
[2020-02-19] MEDS ORDERED: LEVEMIR (INSULIN DETEMIR) 1 UNITS/0.01ML As Ordered ONE (08:27)
[2020-02-19] MEDS ORDERED: K-PHOS NEUTRAL 250MG TABLET (SOD.PHOSPHATE/POT.PHOSPHATE) ONE (09:00)
[2020-02-19] MEDS ORDERED: POTASSIUM CHLORIDE 10 MEQ SR TABLET As Ordered ONE ×2 (12:02→19:22)
[2020-02-19] MEDS ORDERED: KCL 10MEQ IN STERILE WATER 100ML As Ordered ONE ×3 (12:02→15:17)
[2020-02-19] MEDS ORDERED: HumaLOG INSULIN (NovoLOG) PER UNIT As Ordered ONE (12:54)
[2020-02-19] MEDS ORDERED: PREGABALIN 75 MG CAP(LYRICA) As Ordered ONE (20:52)
[2020-02-19] MEDS ORDERED: zolPIDEM TARTRATE 5 MG TAB As Ordered ONE (22:32)
[2020-02-20] MEDS ORDERED: MULTIVITAMINS/MINERALS THERAP 1 TAB As Ordered ONE (09:33)
[2020-02-20] MEDS ORDERED: PREGABALIN 100 MG CAP (LYRICA) As Ordered ONE ×2 (09:34→21:54)
[2020-02-20] MEDS ORDERED: VITAMIN D 1,000 INTERNATIONAL UNITS TABLET As Ordered ONE (09:34)
[2020-02-20] MEDS ORDERED: ATORVASTATIN 20 MG TAB As Ordered ONE (09:35)
[2020-02-20] MEDS ORDERED: OMEPRAZOLE 20 MG CAP As Ordered ONE ×2 (09:35→21:54)
[2020-02-20] MEDS ORDERED: HumaLOG INSULIN (NovoLOG) PER UNIT As Ordered ONE ×3 (09:37→17:39)
[2020-02-20] MEDS ORDERED: FINASTERIDE 5 MG TAB As Ordered ONE (09:37)
[2020-02-20] MEDS ORDERED: CYANOCOBALAMIN 500 MCG TAB As Ordered ONE (09:38)
[2020-02-20] MEDS ORDERED: DULoxetine 30 MG CAP (CYMBALTA) As Ordered ONE (09:38)
[2020-02-20] MEDS ORDERED: lisinopriL 20 MG TAB As Ordered ONE (09:38)
[2020-02-20] MEDS ORDERED: FOLIC ACID 1 MG TAB As Ordered ONE (09:38)
[2020-02-20] MEDS ORDERED: THIAMINE 100 MG TAB As Ordered ONE (09:38)
[2020-02-20] MEDS ORDERED: LEVEMIR (INSULIN DETEMIR) 1 UNITS/0.01ML As Ordered ONE (09:40)
[2020-02-20] MEDS ORDERED: zolPIDEM TARTRATE 5 MG TAB As Ordered ONE (21:55)
[2020-02-21] MEDS ORDERED: LEVOTHYROXINE 25MCG TABLET (0.025MG) As Ordered ONE (06:16)
[2020-02-21] MEDS ORDERED: MULTIVITAMINS/MINERALS THERAP 1 TAB As Ordered ONE (08:37)
[2020-02-21] MEDS ORDERED: OMEPRAZOLE 20 MG CAP As Ordered ONE ×2 (08:38→20:47)
[2020-02-21] MEDS ORDERED: ATORVASTATIN 20 MG TAB As Ordered ONE (08:38)
[2020-02-21] MEDS ORDERED: VITAMIN D 1,000 INTERNATIONAL UNITS TABLET As Ordered ONE (08:38)
[2020-02-21] MEDS ORDERED: HumaLOG INSULIN (NovoLOG) PER UNIT As Ordered ONE ×3 (08:40→17:09)
[2020-02-21] MEDS ORDERED: FINASTERIDE 5 MG TAB As Ordered ONE (08:41)
[2020-02-21] MEDS ORDERED: PREGABALIN 100 MG CAP (LYRICA) As Ordered ONE ×2 (08:41→20:46)
[2020-02-21] MEDS ORDERED: lisinopriL 20 MG TAB As Ordered ONE (08:41)
[2020-02-21] MEDS ORDERED: FOLIC ACID 1 MG TAB As Ordered ONE (08:42)
[2020-02-21] MEDS ORDERED: CYANOCOBALAMIN 500 MCG TAB As Ordered ONE (08:42)
[2020-02-21] MEDS ORDERED: THIAMINE 100 MG TAB As Ordered ONE (08:42)
[2020-02-21] MEDS ORDERED: DULoxetine 30 MG CAP (CYMBALTA) As Ordered ONE (08:43)
[2020-02-21] MEDS ORDERED: LEVEMIR (INSULIN DETEMIR) 1 UNITS/0.01ML As Ordered ONE (08:46)
[2020-02-21] MEDS ORDERED: PREVNAR 13 VACCINE SYRINGE ONE (09:00)
[2020-02-21] MEDS ORDERED: MAGNESIUM SULFATE 1GM/100ML D5W BAG (10MG/ML) As Ordered ONE (10:57)
[2020-02-21] MEDS ORDERED: VANCOMYCIN 1000MG/20ML VIAL As Ordered ONE ×2 (14:44→17:55)
[2020-02-21] MEDS ORDERED: zolPIDEM TARTRATE 5 MG TAB As Ordered ONE (22:51)
[2020-02-22] MEDS ORDERED: VANCOMYCIN 1000MG/20ML VIAL As Ordered ONE ×2 (00:20→15:03)
[2020-02-22] MEDS ORDERED: ACETAMINOPHEN 325 MG TAB As Ordered ONE (03:07)
[2020-02-22] MEDS ORDERED: LEVOTHYROXINE 25MCG TABLET (0.025MG) As Ordered ONE (05:45)
[2020-02-22] MEDS ORDERED: MULTIVITAMINS/MINERALS THERAP 1 TAB As Ordered ONE (08:53)
[2020-02-22] MEDS ORDERED: OMEPRAZOLE 20 MG CAP As Ordered ONE ×2 (08:53→20:58)
[2020-02-22] MEDS ORDERED: VITAMIN D 1,000 INTERNATIONAL UNITS TABLET As Ordered ONE (08:53)
[2020-02-22] MEDS ORDERED: ATORVASTATIN 20 MG TAB As Ordered ONE (08:53)
[2020-02-22] MEDS ORDERED: PREGABALIN 100 MG CAP (LYRICA) As Ordered ONE ×2 (08:55→20:58)
[2020-02-22] MEDS ORDERED: FINASTERIDE 5 MG TAB As Ordered ONE (08:55)
[2020-02-22] MEDS ORDERED: lisinopriL 20 MG TAB As Ordered ONE (08:55)
[2020-02-22] MEDS ORDERED: HumaLOG INSULIN (NovoLOG) PER UNIT As Ordered ONE ×2 (08:55→17:45)
[2020-02-22] MEDS ORDERED: CYANOCOBALAMIN 500 MCG TAB As Ordered ONE (08:56)
[2020-02-22] MEDS ORDERED: amLODIPine 5 MG TAB As Ordered ONE (08:56)
[2020-02-22] MEDS ORDERED: DULoxetine 30 MG CAP (CYMBALTA) As Ordered ONE (08:56)
[2020-02-22] MEDS ORDERED: THIAMINE 100 MG TAB As Ordered ONE (08:56)
[2020-02-22] MEDS ORDERED: FOLIC ACID 1 MG TAB As Ordered ONE (08:56)
[2020-02-22] MEDS ORDERED: LEVEMIR (INSULIN DETEMIR) 1 UNITS/0.01ML As Ordered ONE (08:57)
[2020-02-22] MEDS ORDERED: K-PHOS NEUTRAL 250MG TABLET (SOD.PHOSPHATE/POT.PHOSPHATE) ONE ×2 (09:00→13:00)
[2020-02-22] MEDS ORDERED: MAGNESIUM SULFATE 1GM/100ML D5W BAG (10MG/ML) As Ordered ONE (11:37)
[2020-02-22] MEDS ORDERED: ACAMPROSATE CALCIUM 333 MG TABLET (CAMPRAL) ONE (13:00)
[2020-02-22] MEDS ORDERED: ISOVUE-370 76% 100ML VIAL As Ordered ONE (20:13)
[2020-02-22] MEDS ORDERED: zolPIDEM TARTRATE 5 MG TAB As Ordered ONE (21:59)
[2020-02-22] MEDS ORDERED: TAMSULOSIN 0.4 MG CAP As Ordered ONE (23:37)
[2020-02-23] MEDS ORDERED: VANCOMYCIN 1000MG/20ML VIAL As Ordered ONE ×2 (01:22→14:17)
[2020-02-23] MEDS ORDERED: LEVOTHYROXINE 25MCG TABLET (0.025MG) As Ordered ONE (05:50)
[2020-02-23] MEDS ORDERED: OMEPRAZOLE 20 MG CAP As Ordered ONE (08:23)
[2020-02-23] MEDS ORDERED: VITAMIN D 1,000 INTERNATIONAL UNITS TABLET As Ordered ONE (08:23)
[2020-02-23] MEDS ORDERED: MULTIVITAMINS/MINERALS THERAP 1 TAB As Ordered ONE (08:23)
[2020-02-23] MEDS ORDERED: ATORVASTATIN 20 MG TAB As Ordered ONE (08:24)
[2020-02-23] MEDS ORDERED: PREGABALIN 100 MG CAP (LYRICA) As Ordered ONE (08:25)
[2020-02-23] MEDS ORDERED: HumaLOG INSULIN (NovoLOG) PER UNIT As Ordered ONE ×3 (08:25→17:40)
[2020-02-23] MEDS ORDERED: lisinopriL 20 MG TAB As Ordered ONE (08:25)
[2020-02-23] MEDS ORDERED: FINASTERIDE 5 MG TAB As Ordered ONE (08:25)
[2020-02-23] MEDS ORDERED: CYANOCOBALAMIN 500 MCG TAB As Ordered ONE (08:26)
[2020-02-23] MEDS ORDERED: FOLIC ACID 1 MG TAB As Ordered ONE (08:26)
[2020-02-23] MEDS ORDERED: THIAMINE 100 MG TAB As Ordered ONE (08:26)
[2020-02-23] MEDS ORDERED: LEVEMIR (INSULIN DETEMIR) 1 UNITS/0.01ML As Ordered ONE (08:27)
[2020-02-23] MEDS ORDERED: ACETAMINOPHEN 325 MG TAB As Ordered ONE (10:06)
[2020-02-23] MEDS ORDERED: CYAN100050 PO (10:29)
[2020-02-23] MEDS ORDERED: ACAM0.05 PO (10:29)
[2020-02-23] MEDS ORDERED: INSUHUMDS SC (10:29)
[2020-02-23] MEDS ORDERED: LANTINJ4 SC (10:29)
[2020-02-23] MEDS ORDERED: ONDANSETRON 4 MG TAB PO PRN (10:30)
[2020-02-23] MEDS ORDERED: NICO21DI38 TD (10:41)
[2020-02-23] MEDS ORDERED: VITA50TA47 PO (10:41)
[2020-02-23] MEDS ORDERED: GLUC1KIT IM (10:41)
[2020-02-23] MEDS ORDERED: VITS42.53 TOP (10:41)
[2020-02-23] MEDS ORDERED: BACI500O8 TOP (10:41)
[2020-02-23] MEDS ORDERED: MAGNESIUM SULFATE 1GM/100ML D5W BAG (10MG/ML) As Ordered ONE ×2 (13:09→16:11)
[2020-02-23] MEDS ORDERED: DEXTROSE 50% 50 ML SYRINGE IV PRN (19:00)
[2020-02-23] MEDS ORDERED: NICOTINE 21MG/24HR 1 EA TRANSDERMAL TD PRN (19:00)
[2020-02-23] MEDS ORDERED: GLUCOSE 4GM CHEW TABLET PO PRN (19:00)
[2020-02-23] MEDS ORDERED: NICOTINE POLACRILEX 2 MG GUM PO PRN (19:00)
[2020-02-23] MEDS ORDERED: GLUCAGON INJ 1MG VIAL SC PRN (19:00)
[2020-02-23] MEDS: SYMBICORT 160/4.5MCG INHALER 6GM INH SCH (19:42)
[2020-02-23] MEDS: HumaLOG INSULIN (NovoLOG) PER UNIT SC SCH (21:00)
[2020-02-23] MEDS ORDERED: DULoxetine 20 MG CAP (CYMBALTA) ONE (21:00)
[2020-02-23] MEDS ORDERED: BOOSTRIX/ADACEL VACCINE (DIPHTH/PERTUSS/ACELL/TETANUS) 0.5ML SYR ONE (21:00)
[2020-02-23] MEDS: OMEPRAZOLE 20 MG CAP PO SCH (21:16)
[2020-02-23] MEDS: PREGABALIN 100 MG CAP (LYRICA) PO SCH (21:16)
[2020-02-23] MEDS: zolPIDEM TARTRATE 5 MG TAB PO PRN (21:21)
[2020-02-23] MEDS: TAMSULOSIN 0.4 MG CAP PO SCH (21:21)
[2020-02-23] MEDS: ACAMPROSATE CALCIUM 333 MG TABLET (CAMPRAL) PO SCH (21:21)
[2020-02-23 21:50] LABS: HEMATOCRIT 28.1 % (42.0-52.0); HEMOGLOBIN 8.4 g/dl (13.5-17.5); MEAN CORPUSCULAR HEMOGLOBIN 26.3 pg (27.0-33.0); MEAN CORPUSCULAR HGB CONC 29.9 g/dl (32.0-36.5); MEAN CORPUSCULAR VOLUME 87.8 fl (80.0-96.0); PLATELET COUNT, AUTOMATED 368 10^3/uL (150-450); WHITE BLOOD COUNT 10.7 10^3/uL (4.0-10.0)
[2020-02-23 22:00] VITALS: BP 126/64
[2020-02-24] MEDS: VANCOMYCIN HCL 1,000 MG, VIAL MATE ADAPTER 1 EACH in D5W 250 ML IV SCH ×2 (00:35→13:35)
[2020-02-24] MEDS: LEVOTHYROXINE 25MCG TABLET (0.025MG) PO SCH (05:20)
[2020-02-24 05:54] LABS: HEMATOCRIT 28.2 % (42.0-52.0); HEMOGLOBIN 8.4 g/dl (13.5-17.5); MEAN CORPUSCULAR HEMOGLOBIN 26.3 pg (27.0-33.0); MEAN CORPUSCULAR HGB CONC 29.8 g/dl (32.0-36.5); MEAN CORPUSCULAR VOLUME 88.4 fl (80.0-96.0); PLATELET COUNT, AUTOMATED 382 10^3/uL (150-450); RED BLOOD COUNT 3.19 10^6/uL (4.30-6.10); WHITE BLOOD COUNT 10.3 10^3/uL (4.0-10.0)
[2020-02-24 06:33] LABS: ALBUMIN 2.4 GM/DL (3.2-5.2); ALT/SGPT 45 U/L (12-78); BILIRUBIN,TOTAL 0.9 MG/DL (0.2-1.0); BLOOD UREA NITROGEN 13 MG/DL (7-18); CALCIUM LEVEL 8.2 MG/DL (8.8-10.2); CARBON DIOXIDE LEVEL 26 MEQ/L (21-32); CHLORIDE LEVEL 108 MEQ/L (98-107); CREATININE FOR GFR 0.72 MG/DL (0.70-1.30); GLOMERULAR FILTRATION RATE > 60.0 (>49); GLUCOSE, FASTING 199 MG/DL (70-100); MAGNESIUM LEVEL 1.5 MG/DL (1.8-2.4); PHOSPHORUS LEVEL 2.5 MG/DL (2.5-4.9); POTASSIUM SERUM 4.6 MEQ/L (3.5-5.1); SODIUM LEVEL 138 MEQ/L (136-145); TOTAL PROTEIN 5.4 GM/DL (6.4-8.2)
[2020-02-24] MEDS: SYMBICORT 160/4.5MCG INHALER 6GM INH SCH ×2 (07:29→20:32)
[2020-02-24] MEDS: MAG SULF 1GM/100ML (MAG RUN) 1 GM in IV 1 EA IV SCH ×3 (08:30→11:51)
[2020-02-24] MEDS: LEVEMIR (INSULIN DETEMIR) 1 UNITS/0.01ML SC SCH (08:30)
[2020-02-24] MEDS: HumaLOG INSULIN (NovoLOG) PER UNIT SC SCH ×4 (08:31→21:00)
[2020-02-24] MEDS: VITAMIN D 1,000 INTERNATIONAL UNITS TABLET PO SCH (08:31)
[2020-02-24] MEDS: THIAMINE 100 MG TAB PO SCH (08:32)
[2020-02-24] MEDS: ACAMPROSATE CALCIUM 333 MG TABLET (CAMPRAL) PO SCH ×3 (08:32→20:18)
[2020-02-24] MEDS: MULTIVITAMINS/MINERALS THERAP 1 TAB PO SCH (08:32)
[2020-02-24] MEDS: FOLIC ACID 1 MG TAB PO SCH (08:33)
[2020-02-24] MEDS: FINASTERIDE 5 MG TAB PO SCH (08:33)
[2020-02-24] MEDS: K-PHOS NEUTRAL 250MG TABLET (SOD.PHOSPHATE/POT.PHOSPHATE) PO SCH (08:33)
[2020-02-24] MEDS: CYANOCOBALAMIN 500 MCG TAB PO SCH (08:33)
[2020-02-24] MEDS: ATORVASTATIN 20 MG TAB PO SCH (08:33)
[2020-02-24] MEDS: PREGABALIN 100 MG CAP (LYRICA) PO SCH ×2 (08:33→20:18)
[2020-02-24] MEDS: OMEPRAZOLE 20 MG CAP PO SCH ×2 (08:33→20:18)
[2020-02-24] MEDS: DULoxetine 20 MG CAP (CYMBALTA) PO SCH (08:33)
[2020-02-24] MEDS: lisinopriL 20 MG TAB PO SCH (08:34)
[2020-02-24] MEDS: ACETAMINOPHEN TAB 650MG DOSE (2X325MG) PO PRN (10:27)
[2020-02-24 14:00] VITALS: BP 130/67
--- NOTE | 2020-02-24 14:57 | IPNPDOC ---
Date Seen The patient was seen on 02/24/20. Progress Note SUBJECTIVE: Patient seen and examined at the bedside this morning. No complaints. Denies any diarrhea or abdominal pain. Eating/drinking well. No urinary symptoms. He does express some concern about not wishing to be admitted to [facility] after this hospitalization. He does not think he is suicidal anymore. OBJECTIVE PHYSICAL EXAMINATION: VITAL SIGNS: Please see below. GENERAL: NAD, calm/cooperative, laying flat in bed HEENT: MMM, NC/AT, EOMI/PERRL CARDIOVASCULAR: RRR, 3/6 CHIQUIS heard best in RUSB radiating to carotids, no r/g, +s1/s2 RESPIRATORY: CTAB ABDOMINAL: Soft, slightly tender to deep palpation in RLQ, +BS, no obvious organomegaly EXTREMITIES: no clubbing/cyanosis/edema NEUROLOGICAL: no obvious neurologic deficits PSYCHOLOGICAL: normal mood/flat affect LABORATORY DATA, IMAGING STUDIES, MICROBIOLOGY: Please see below. Echocardiogram: results in paper chart, no vegetations, mild aortic stenosis DVT prophylaxis ordered?: TEDs/SCDs ASSESSMENT AND PLAN: This is a 69 YO M with T2DM, AF, hypothyroidism who presented with weakness/SOB and diarrhea found to have symptomatic anemia. He was transfused 2U pRBCs and hgb has remained stable. Diarrhea has resolved. On 02/21/20 he was found to have blood cultures positive for S. epidermidis and Clostridium sp and was started on Vancomycin. PROBLEMS: 1. Bacteremia: Blood cultures on 02/20 positive for S. epidermidis + Clostridium sp. -repeat blood cultures (done 02/20/19 prior to abx) have no growth to date -Continue IV vancomycin -Echo negative for vegetations -CT abd/pelvis concerning for noncalcified gallstones + fat stranding around the gallbladder concerning for acute cholecystitis; fluid collection in anterior compartment deep fat of left thigh -CT-guided drainage of fluid collection ordered, will culture fluid as it may be a source of bacteremia -Surgery ([place]) consulted about Gallbladder. RUQ US ordered. Concern for gallbladder as etiology of bacteremia -ID consulted. Concern for GI pathology vs fluid collection/hematoma on left thigh 2. pAF: -Holding Eliquis 2/2 GIB -Patient will need colonoscopy after discharge in outpatient setting 3. BPH: -On Flomax 4. Suicidality: -Was evaluated by Psychiatry ([place]) who recommended increase in Cymbalta, adding Abilify and admission to [facility] once medically stable 5. Hypomagnesemia: -Mg replaced this AM 6. Alcohol Use disorder: -Continue Acamprosate, Thiamine DISPOSITION: Pending further workup and etiology of bacteremia. Patient is not passing PT and will need to be re-evaluated by psychiatry to determine disposition after medically stable. VS, I&O, 24H, Fishbone Vital Signs/I&O Vital Signs Date Time Temp Pulse Resp B/P (MAP) Pulse Ox O2 Delivery O2 Flow Rate FiO2 02/24/20 08:34 148/67 02/24/20 08:34 70 02/23/20 22:00 97.8 16 96 Room Air I&O- Last 24 Hours up to 6 AM 02/24/20 06:00 Intake Total 670 ml Output Total 510 ml Balance 160 ml Laboratory Data 24H LABS Laboratory Tests 2 02/24/20 05:15: Nucleated Red Blood Cells % (auto) 0.0, Anion Gap 4L, Glomerular Filtration Rate > 60.0, Calcium Level 8.2L, Phosphorus Level 2.5, Magnesium Level 1.5L, Total Bilirubin 0.9, Aspartate Amino Transf (AST/SGOT) 64H, Alanine Aminotransferase (ALT/SGPT) 45, Alkaline Phosphatase 172H, Total Protein 5.4L, Albumin 2.4L, Albumin/Globulin Ratio 0.8 02/24/20 12:08: Vancomycin Level Trough 14.6 CBC/BMP Laboratory Tests 02/24/20 05:15 GME ATTESTATION GME ATTESTATION My faculty preceptor for this patient encounter was physically present during the encounter and was fully available. All aspects of the patient interview, examination, medical decision making process, and medical care plan development were reviewed and approved by the faculty preceptor. The faculty preceptor is aware and concurs with the plan as stated in the body of this note and will attest to such by his/her cosignature. ATTENDING NOTE Patient independently seen and examined. Agree with resident's note. ADELSO CHAIDEZ MD Feb 24, 2020 14:57 JOE WELSH MD Mar 22, 2020 11:40
[2020-02-24] MEDS ORDERED: LIDOCAINE 1% MDV 20ML VIAL As Ordered ONE (15:33)
[2020-02-24] MEDS: TAMSULOSIN 0.4 MG CAP PO SCH (20:18)
[2020-02-24 22:00] VITALS: BP 142/66
[2020-02-24] MEDS: zolPIDEM TARTRATE 5 MG TAB PO PRN (22:47)
[2020-02-25] MEDS: VANCOMYCIN HCL 1,000 MG, VIAL MATE ADAPTER 1 EACH in D5W 250 ML IV SCH ×2 (00:43→12:44)
[2020-02-25] MEDS: LEVOTHYROXINE 25MCG TABLET (0.025MG) PO SCH (05:45)
[2020-02-25 06:00] VITALS: BP 150/86
[2020-02-25 06:56] LABS: HEMATOCRIT 31.1 % (42.0-52.0); HEMOGLOBIN 9.2 g/dl (13.5-17.5); MEAN CORPUSCULAR HEMOGLOBIN 26.1 pg (27.0-33.0); MEAN CORPUSCULAR HGB CONC 29.6 g/dl (32.0-36.5); MEAN CORPUSCULAR VOLUME 88.4 fl (80.0-96.0); PLATELET COUNT, AUTOMATED 376 10^3/uL (150-450); RED BLOOD COUNT 3.52 10^6/uL (4.30-6.10); WHITE BLOOD COUNT 10.7 10^3/uL (4.0-10.0)
[2020-02-25 07:23] LABS: BLOOD UREA NITROGEN 12 MG/DL (7-18); C REACTIVE PROTEIN QUANTITATIV 1.17 MG/DL (0.00-0.30); CALCIUM LEVEL 8.4 MG/DL (8.8-10.2); CARBON DIOXIDE LEVEL 25 MEQ/L (21-32); CHLORIDE LEVEL 107 MEQ/L (98-107); CREATININE FOR GFR 0.64 MG/DL (0.70-1.30); GLOMERULAR FILTRATION RATE > 60.0 (>49); GLUCOSE, FASTING 178 MG/DL (70-100); MAGNESIUM LEVEL 1.7 MG/DL (1.8-2.4); PHOSPHORUS LEVEL 2.8 MG/DL (2.5-4.9); POTASSIUM SERUM 4.8 MEQ/L (3.5-5.1); SODIUM LEVEL 136 MEQ/L (136-145)
[2020-02-25] MEDS: PREGABALIN 100 MG CAP (LYRICA) PO SCH ×2 (08:05→21:37)
[2020-02-25] MEDS: LEVEMIR (INSULIN DETEMIR) 1 UNITS/0.01ML SC SCH (08:06)
[2020-02-25] MEDS: HumaLOG INSULIN (NovoLOG) PER UNIT SC SCH ×4 (08:07→22:07)
[2020-02-25] MEDS: ACAMPROSATE CALCIUM 333 MG TABLET (CAMPRAL) PO SCH ×3 (08:07→21:37)
[2020-02-25] MEDS: FINASTERIDE 5 MG TAB PO SCH (08:07)
[2020-02-25] MEDS: THIAMINE 100 MG TAB PO SCH (08:07)
[2020-02-25] MEDS: VITAMIN D 1,000 INTERNATIONAL UNITS TABLET PO SCH (08:07)
[2020-02-25] MEDS: DULoxetine 20 MG CAP (CYMBALTA) PO SCH (08:07)
[2020-02-25] MEDS: K-PHOS NEUTRAL 250MG TABLET (SOD.PHOSPHATE/POT.PHOSPHATE) PO SCH (08:07)
[2020-02-25] MEDS: OMEPRAZOLE 20 MG CAP PO SCH ×2 (08:07→21:37)
[2020-02-25] MEDS: FOLIC ACID 1 MG TAB PO SCH (08:07)
[2020-02-25] MEDS: MULTIVITAMINS/MINERALS THERAP 1 TAB PO SCH (08:07)
[2020-02-25] MEDS: CYANOCOBALAMIN 500 MCG TAB PO SCH (08:07)
[2020-02-25] MEDS: ATORVASTATIN 20 MG TAB PO SCH (08:08)
[2020-02-25] MEDS: lisinopriL 20 MG TAB PO SCH (08:09)
[2020-02-25] MEDS: SYMBICORT 160/4.5MCG INHALER 6GM INH SCH ×2 (08:33→20:47)
[2020-02-25] MEDS: MAG SULF 1GM/100ML (MAG RUN) 1 GM in IV 1 EA IV SCH ×3 (10:35→14:28)
[2020-02-25 12:06] LABS: HEMATOCRIT 27.3 % (42.0-52.0); MEAN CORPUSCULAR HEMOGLOBIN 26.1 pg (27.0-33.0); MEAN CORPUSCULAR HGB CONC 29.3 g/dl (32.0-36.5); MEAN CORPUSCULAR VOLUME 89.2 fl (80.0-96.0); PLATELET COUNT, AUTOMATED 359 10^3/uL (150-450); RED BLOOD COUNT 3.06 10^6/uL (4.30-6.10)
[2020-02-25 12:37] LABS: APPEARANCE, URINE MANUAL CLEAR (CLEAR); BILIRUBIN, URINE MANUAL 1+ (NEGATIVE); COLOR, URINE MANUAL YELLOW (YELLOW); GLUCOSE, URINE (UA) MANUAL 3+(500 MG/DL) mg/dL (NEGATIVE); KETONE, URINE MANUAL NEGATIVE (NEGATIVE); PROTEIN, URINE MANUAL NEGATIVE (NEGATIVE); UROBILINOGEN, URINE MANUAL 8 MG mg/dl (NORMAL)
[2020-02-25 12:38] LABS: BLOOD URINE MANUAL NEGATIVE (NEGATIVE); LEUKOCYTE ESTERASE, URINE MAN NEGATIVE (NEGATIVE); NITRITE, URINE MANUAL NEGATIVE (NEGATIVE)
[2020-02-25 14:00] VITALS: BP 139/73
--- NOTE | 2020-02-25 14:09 | IPNPDOC ---
Date Seen The patient was seen on 02/25/20. Progress Note SUBJECTIVE: Patient seen and examined at the bedside this morning. No complaints. Denies any diarrhea or abdominal pain. Eating/drinking well. No urinary symptoms. He went for US-guided drainage of left thigh fluid pockets yesterday, cultures pending. OBJECTIVE PHYSICAL EXAMINATION: VITAL SIGNS: Please see below. GENERAL: NAD, calm/cooperative, laying flat in bed HEENT: MMM, NC/AT, EOMI/PERRL CARDIOVASCULAR: RRR, 3/6 CHIQUIS heard best in RUSB radiating to carotids, no r/g, +s1/s2 RESPIRATORY: CTAB ABDOMINAL: Soft, slightly tender to deep palpation in RLQ, +BS, no obvious organomegaly EXTREMITIES: no clubbing/cyanosis/edema NEUROLOGICAL: no obvious neurologic deficits PSYCHOLOGICAL: normal mood/flat affect LABORATORY DATA, IMAGING STUDIES, MICROBIOLOGY: Please see below. Echocardiogram: results in paper chart, no vegetations, mild aortic stenosis DVT prophylaxis ordered?: TEDs/SCDs ASSESSMENT AND PLAN: This is a 69 YO M with T2DM, AF, hypothyroidism who presented with weakness/SOB and diarrhea found to have symptomatic anemia. He was transfused 2U pRBCs and hgb has remained stable. Diarrhea has resolved. On 02/21/20 he was found to have blood cultures positive for S. epidermidis and Clostridium sp and was started on Vancomycin. Repeat blood cx negative to date. PROBLEMS: 1. Bacteremia: Blood cultures on 02/20 positive for S. epidermidis + Clostridium sp. -repeat blood cultures (done 02/20/19 prior to abx) have no growth to date -Continue IV vancomycin -Echo negative for vegetations -CT abd/pelvis concerning for noncalcified gallstones + fat stranding around the gallbladder concerning for acute cholecystitis; fluid collection in anterior compartment deep fat of left thigh -CT-guided drainage of fluid collection done on 02/23, will culture fluid as it may be the source of bacteremia -Surgery ([place]) consulted about Gallbladder. RUQ US ordered. Concern for gallbladder as etiology of bacteremia -ID consulted. Concern for GI pathology vs fluid collection/hematoma on left thigh 2. pAF: -Holding Eliquis 2/2 GIB -Patient will need colonoscopy after discharge in outpatient setting 3. BPH: -On Flomax 4. Suicidality: -Was evaluated by Psychiatry ([facility]) who recommended increase in Cymbalta, adding Abilify and admission to [facility] once medically stable 5. Hypomagnesemia: -Mg replaced this AM 6. Alcohol Use disorder: -Continue Acamprosate, Thiamine DISPOSITION: Pending further workup and etiology of bacteremia. Patient is not passing PT and will need to be re-evaluated by psychiatry to determine disposition after medically stable. VS, I&O, 24H, Fishbone Vital Signs/I&O Vital Signs Date Time Temp Pulse Resp B/P (MAP) Pulse Ox O2 Delivery O2 Flow Rate FiO2 02/25/20 08:08 72 151/83 02/25/20 06:00 97.5 18 97 Room Air I&O- Last 24 Hours up to 6 AM 02/25/20 06:00 Intake Total 2080 ml Output Total 440 ml Balance 1640 ml Laboratory Data 24H LABS Laboratory Tests 2 02/25/20 05:33: Nucleated Red Blood Cells % (auto) 0.0, Anion Gap 4L, Glomerular Filtration Rate > 60.0, Calcium Level 8.4L, Phosphorus Level 2.8, Magnesium Level 1.7L, C- Reactive Protein, Quantitative 1.17H CBC/BMP Laboratory Tests 02/25/20 05:33 Microbiology Microbiology 02/24/20 Gram Stain - Final, Resulted 02/24/20 Abscess Culture, Resulted Pending 02/24/20 Anaerobic Culture, Received Pending 02/22/20 Urine Culture - Final, Complete GME ATTESTATION GME ATTESTATION My faculty preceptor for this patient encounter was physically present during the encounter and was fully available. All aspects of the patient interview, examination, medical decision making process, and medical care plan development were reviewed and approved by the faculty preceptor. The faculty preceptor is aware and concurs with the plan as stated in the body of this note and will attest to such by his/her cosignature. ADELSO CHAIDEZ MD Feb 25, 2020 14:09
[2020-02-25] MEDS: ACETAMINOPHEN TAB 650MG DOSE (2X325MG) PO PRN (17:40)
[2020-02-25] MEDS: zolPIDEM TARTRATE 5 MG TAB PO PRN (21:37)
[2020-02-25] MEDS: TAMSULOSIN 0.4 MG CAP PO SCH (21:37)
[2020-02-25 22:00] VITALS: BP 148/68
[2020-02-26] MEDS: LEVOTHYROXINE 25MCG TABLET (0.025MG) PO SCH (05:15)
[2020-02-26] MEDS: MOXIFLOXACIN 400 MG TAB PO SCH (05:15)
[2020-02-26 06:00] VITALS: BP 150/67
[2020-02-26 06:19] LABS: HEMATOCRIT 29.1 % (42.0-52.0); HEMOGLOBIN 8.7 g/dl (13.5-17.5); MEAN CORPUSCULAR HGB CONC 29.9 g/dl (32.0-36.5); MEAN CORPUSCULAR VOLUME 86.9 fl (80.0-96.0); PLATELET COUNT, AUTOMATED 357 10^3/uL (150-450); RED BLOOD COUNT 3.35 10^6/uL (4.30-6.10); WHITE BLOOD COUNT 9.4 10^3/uL (4.0-10.0)
[2020-02-26 06:49] LABS: BLOOD UREA NITROGEN 14 MG/DL (7-18); CALCIUM LEVEL 8.6 MG/DL (8.8-10.2); CARBON DIOXIDE LEVEL 24 MEQ/L (21-32); CHLORIDE LEVEL 108 MEQ/L (98-107); CREATININE FOR GFR 0.62 MG/DL (0.70-1.30); GLOMERULAR FILTRATION RATE > 60.0 (>49); GLUCOSE, FASTING 166 MG/DL (70-100); MAGNESIUM LEVEL 1.7 MG/DL (1.8-2.4); POTASSIUM SERUM 4.8 MEQ/L (3.5-5.1); SODIUM LEVEL 136 MEQ/L (136-145)
[2020-02-26] MEDS: SYMBICORT 160/4.5MCG INHALER 6GM INH SCH ×2 (07:41→20:11)
[2020-02-26] MEDS: LEVEMIR (INSULIN DETEMIR) 1 UNITS/0.01ML SC SCH (08:15)
[2020-02-26] MEDS: HumaLOG INSULIN (NovoLOG) PER UNIT SC SCH ×4 (08:15→21:12)
[2020-02-26] MEDS: OMEPRAZOLE 20 MG CAP PO SCH ×2 (08:16→20:42)
[2020-02-26] MEDS: ACAMPROSATE CALCIUM 333 MG TABLET (CAMPRAL) PO SCH ×3 (08:16→20:42)
[2020-02-26] MEDS: VITAMIN D 1,000 INTERNATIONAL UNITS TABLET PO SCH (08:16)
[2020-02-26] MEDS: K-PHOS NEUTRAL 250MG TABLET (SOD.PHOSPHATE/POT.PHOSPHATE) PO SCH (08:17)
[2020-02-26] MEDS: lisinopriL 20 MG TAB PO SCH (08:17)
[2020-02-26] MEDS: CYANOCOBALAMIN 500 MCG TAB PO SCH (08:17)
[2020-02-26] MEDS: FOLIC ACID 1 MG TAB PO SCH (08:17)
[2020-02-26] MEDS: PREGABALIN 100 MG CAP (LYRICA) PO SCH ×2 (08:17→20:42)
[2020-02-26] MEDS: DULoxetine 20 MG CAP (CYMBALTA) PO SCH (08:18)
[2020-02-26] MEDS: ATORVASTATIN 20 MG TAB PO SCH (08:18)
[2020-02-26] MEDS: FINASTERIDE 5 MG TAB PO SCH (08:18)
[2020-02-26] MEDS: THIAMINE 100 MG TAB PO SCH (08:18)
[2020-02-26] MEDS: MULTIVITAMINS/MINERALS THERAP 1 TAB PO SCH (08:19)
[2020-02-26] MEDS: MAG SULF 1GM/100ML (MAG RUN) 1 GM in IV 1 EA IV SCH ×2 (08:20→09:56)
--- NOTE | 2020-02-26 11:04 | IPNPDOC ---
Date Seen The patient was seen on 02/26/20. Progress Note SUBJECTIVE: Patient seen and examined at the bedside this morning. No complaints. Denies any diarrhea or abdominal pain. Eating/drinking well. No urinary symptoms. OBJECTIVE PHYSICAL EXAMINATION: VITAL SIGNS: Please see below. GENERAL: NAD, calm/cooperative, laying flat in bed HEENT: MMM, NC/AT, EOMI/PERRL CARDIOVASCULAR: RRR, 3/6 CHIQUIS heard best in RUSB radiating to carotids, no r/g, +s1/s2 RESPIRATORY: CTAB ABDOMINAL: Soft, slightly tender to deep palpation in RLQ, +BS, no obvious orga nomegaly EXTREMITIES: no clubbing/cyanosis/edema NEUROLOGICAL: no obvious neurologic deficits PSYCHOLOGICAL: normal mood/flat affect LABORATORY DATA, IMAGING STUDIES, MICROBIOLOGY: Please see below. Echocardiogram: results in paper chart, no vegetations, mild aortic stenosis DVT prophylaxis ordered?: TEDs/SCDs ASSESSMENT AND PLAN: This is a 69 YO M with T2DM, AF, hypothyroidism who presented with weakness/SOB and diarrhea found to have symptomatic anemia. He was transfused 2U pRBCs and hgb has remained stable. Diarrhea has resolved. On 02/21/20 he was found to have blood cultures positive for S. epidermidis and Clostridium sp and was started on Vancomycin. Repeat blood cx negative to date. PROBLEMS: 1. Bacteremia: Blood cultures on 02/20 positive for S. epidermidis + Clostridium sp. -repeat blood cultures (done 02/20/19 prior to abx) have no growth to date -IV vancomycin changed to PO Moxifloxacin -Echo negative for vegetations -CT abd/pelvis concerning for noncalcified gallstones + fat stranding around the gallbladder concerning for acute cholecystitis; fluid collection in anterior compartment deep fat of left thigh -CT-guided drainage of fluid collection done on 02/23, will culture fluid as it may be the source of bacteremia -Surgery ([place]) consulted about Gallbladder. RUQ US ordered. Concern for gallbladder as etiology of bacteremia -ID consulted. Concern for GI pathology vs fluid collection/hematoma on left thigh 2. pAF: -Holding Eliquis 2/2 GIB -Patient will need colonoscopy after discharge in outpatient setting 3. BPH: -On Flomax 4. Suicidality: -Was evaluated by Psychiatry ([facility]) who recommended increase in Cymbalta, adding Abilify and admission to [facility] once medically stable 5. Hypomagnesemia: -Mg replaced this AM 6. Alcohol Use disorder: -Continue Acamprosate, Thiamine DISPOSITION: Pending further workup and etiology of bacteremia. Will have psych see him to reevaluate for suicidality VS, I&O, 24H, Fishbone Vital Signs/I&O Vital Signs Date Time Temp Pulse Resp B/P (MAP) Pulse Ox O2 Delivery O2 Flow Rate FiO2 02/26/20 06:00 97.3 60 18 150/67 (94) 96 Room Air I&O- Last 24 Hours up to 6 AM 02/26/20 06:00 Intake Total 2340 ml Balance 2340 ml Laboratory Data 24H LABS Laboratory Tests 2 02/26/20 05:48: Nucleated Red Blood Cells % (auto) 0.0, Anion Gap 4L, Glomerular Filtration Rate > 60.0, Calcium Level 8.6L, Magnesium Level 1.7L CBC/BMP Laboratory Tests 02/26/20 05:48 Microbiology Microbiology 02/24/20 Gram Stain - Final, Complete 02/24/20 Abscess Culture - Final, Complete 02/24/20 Anaerobic Culture - Final, Complete 02/22/20 Urine Culture - Final, Complete GME ATTESTATION GME ATTESTATION My faculty preceptor for this patient encounter was physically present during the encounter and was fully available. All aspects of the patient interview, examination, medical decision making process, and medical care plan development were reviewed and approved by the faculty preceptor. The faculty preceptor is aware and concurs with the plan as stated in the body of this note and will attest to such by his/her cosignature. ATTENDING NOTE Patient seen and examined independently. Agree with resident's note. ADELSO CHAIDEZ MD Feb 26, 2020 07:59 JOE WELSH MD Mar 23, 2020 07:54
[2020-02-26] MEDS ORDERED: MOXI400T11 PO ×2 (12:36→16:30)
[2020-02-26] MEDS ORDERED: CYMB1CAP4 PO (12:42)
[2020-02-26 14:00] VITALS: BP 135/66
--- NOTE | 2020-02-26 15:38 | MHIPNPDOC ---
[facility] Progress Note Progress Note DATE OF SERVICE: 02/26/20 HISTORY: Evaluated 69 year old male who was initially evaluated last Saturday (02/19/2020) because he had expressed suicidal ideation. At that time he was accompanied by a friend, Shannan, who lives in an apartment, at this house. At that time he mentioned she was the person who talked him out of killing himself, otherwise, he said, he would have shot himself. We talked about different treatment option and I mentioned he would probably do well on Abilify, a medication that would help him control his anger, irritability and impulsivity but then this director underwriter sales realized that his LFT's were elevated and that he had an alcohol use disorder. I decided not to start Abilify and instead, increase Cymbalta to 40 mgs since he already had been taking this medication, but 30 mgs. The patient has a h/o alcohol abuse and in my opinion, this could have contributed to his suicidal thoughts and depression. He mentioned he had been treated for anxiety and depression several years ago and he had taken Celexa and this medication was able to control his symptoms but at this time was too risky to start him on this medication because it causes QTc prolongation. He mentioned the trigger at this time were the many medical illnesses he suffers. ( Please see my hand written initial evaluation note that is in his chart) Interval Story: today, Dr. Desouza contacted me and said the patient had told her he didn't want to come to [facility], as I had suggested before ( and he had agreed). When I came to re evaluate him, he said he didn' t want to go to [facility] because he is not longer suicidal, adamantly denied suicidal thoughts, plans or intents. He said he would talk to Shannan or would call someone else in case he would become suicidal but he said that ht would be fine if the Hospital arranged some services for him: somebody to cook for him, a Nurse to dispense his medications and someone to help him out around the house. VITAL SIGNS: See below. NEW TEST RESULTS: See below CURRENT MEDICATIONS: See below. MENTAL STATUS EXAMINATION: Patient is a 69-year old male, who is alert, superficially cooperative, dressed in hospital clothes, laying in bed with good eye contact. Speech: Is normal in rate and tone but he gets very loud at times, especially when he becomes irritated. Language skills are fair. Thought processes including: linear and coherent. Thought content: negative for suicidal ideation, negative for homicidal ideation, negative for thought delusions. Description of associations: intact. Description of abnormal or psychotic thoughts: Denies thought delusions, denies TAV hallucinations, he was not seen responding to internal stimuli. Judgment: fair. Insight: fair. Orientation: x 3. Recent and remote memory: there are deficits in recent memory, possibly secondary to chronic alcohol abuse/use. Attention span and concentration: good. Language: adequate. Fund of knowledge: average. Mood: irritable. Affect: congruent with mood. DIAGNOSES: 1. 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 R/O Alcohol induced mood disorder. 3. alcohol use disorder. ASSESSMENT: the patient is not in need of Inpatient hospitalization for suicidality at this time because he is not longer suicidal. he is future orientated and he says he would do well if he would have a funeral home location manager that would be able to assist him with his medications and meal preparations. I contacted Dr. Desouza and notified her that he doesn't need to be at [facility] at this time but instead he will need home services. He is already taking Cymbalta 40 mgs fo anxiety and depression, he should continue on that medication upon discharge. MANAGEMENT PLAN: Continue on Cymbalta 40 mgs PO daily. No [facility] hospitalization needed at this time. the patient is future orientated which goes against suicidal ideation and he denies being suicidal, homicidal or psychotic at this time. He is not in risk for himself or others at this time. TIME SPENT: 15 minutes. Vital Signs Vital Signs Date Time Temp Pulse Resp B/P (MAP) Pulse Ox O2 Delivery O2 Flow Rate FiO2 02/26/20 08:19 73 117/69 02/26/20 06:00 97.3 18 96 Room Air Laboratory Data 24H Labs Laboratory Tests 2 02/26/20 05:48: Nucleated Red Blood Cells % (auto) 0.0, Anion Gap 4L, Glomerular Filtration Rate > 60.0, Calcium Level 8.6L, Magnesium Level 1.7L CBC/BMP Laboratory Tests 02/26/20 05:48 Current Medications Current Medications Medications (Trade) Dose Ordered Sig/Scott Route PRN Reason Start Time Stop Time Status Last Admin Dose Admin Acamprosate (Campral) 666 mg TID PO 02/23/20 21:00 02/26/20 08:16 Acetaminophen (Tylenol Tab) 650 mg Q4HP PRN PO MILD PAIN OR FEVER 02/23/20 10:30 02/25/20 17:40 Amlodipine Besylate (Norvasc) 7.5 mg DAILY PO 02/24/20 09:00 02/26/20 08:19 Atorvastatin Calcium (Lipitor) 40 mg DAILY PO 02/24/20 09:00 02/26/20 08:18 Budesonide/ Formoterol Fumarate (Symbicort 160/ 4.5mcg) 2 puff RBID INH 02/23/20 20:00 02/26/20 07:41 Cyanocobalamin (Vitamin B12) 1,000 mcg DAILY PO 02/24/20 09:00 02/26/20 08:17 Dextrose (Dextrose 50%) 25 ml ASDIRECTED PRN IV SEE LABEL COMMENTS 02/23/20 19:00 Duloxetine HCl (Cymbalta) 40 mg DAILY PO 02/24/20 09:00 02/26/20 08:18 Finasteride (Proscar) 5 mg DAILY PO 02/24/20 09:00 02/26/20 08:18 Folic Acid (Folic Acid) 1 mg DAILY PO 02/24/20 09:00 02/26/20 08:17 Glucagon (Glucagon) 1 mg ASDIRECTED PRN SC SEE LABEL COMMENTS 02/23/20 19:00 Glucose (Glucose) 16GM'S (4 TABS) ASDIRECTED PRN PO SEE LABEL COMMENTS 02/23/20 19:00 Home Med (Med Rec Complete!) ASDIRECTED XX 02/23/20 10:45 02/23/20 10:46 DC Insulin Detemir (Levemir Insulin) 24 units DAILY SC 02/24/20 09:00 02/26/20 08:15 Insulin Human Lispro (HumaLOG INSULIN) See Protocol Table AC SC 02/24/20 07:30 02/26/20 12:37 Insulin Human Lispro (HumaLOG INSULIN) See Protocol Table QHS SC 02/23/20 21:00 02/25/20 22:07 Levothyroxine Sodium (Synthroid) 25 mcg DAILY@06 PO 02/24/20 06:00 02/26/20 05:15 Lisinopril (Prinivil) 20 mg DAILY PO 02/24/20 09:00 02/26/20 08:17 Magnesium Oxide (Mag-Ox) 400 mg TID PO 02/26/20 16:00 Magnesium Sulfate/ Dextrose 1 gm/IV Miscellaneous Supplies 100 ml @ 100 mls/hr Q1H IV 02/24/20 09:00 02/24/20 11:59 DC 02/24/20 11:51 Magnesium Sulfate/ Dextrose 1 gm/IV Miscellaneous Supplies 100 ml @ 100 mls/hr Q1H IV 02/25/20 08:15 02/25/20 11:14 DC 02/25/20 14:28 Magnesium Sulfate/ Dextrose 1 gm/IV Miscellaneous Supplies 100 ml @ 100 mls/hr Q1H IV 02/26/20 08:00 02/26/20 09:59 DC 02/26/20 09:56 Moxifloxacin HCl (Avelox) 400 mg DAILY@06 PO 02/26/20 06:00 02/26/20 05:15 Multivitamins (Theragram-M) 1 tab DAILY PO 02/24/20 09:00 02/26/20 08:19 Nicotine (Nicoderm Cq 21mg) 1 patch DAILY PRN TD SMOKING CESSATION 02/23/20 19:00 Nicotine (Nicorette) 4 mg DAILY PRN PO SMOKING CESSATION 02/23/20 19:00 Omeprazole (PriLOSEC) 20 mg BID PO 02/23/20 21:00 02/26/20 08:16 Ondansetron HCl (Zofran) 4 mg Q6H PRN PO NAUSEA OR VOMITING 02/23/20 10:30 Potassium Phos/ Sodium Phos (K-Phos Neutral) 250 mg DAILY PO 02/24/20 09:00 02/26/20 08:17 Pregabalin (Lyrica) 300 mg BID PO 02/23/20 21:00 02/26/20 08:17 Tamsulosin HCl (Flomax) 0.4 mg QHS PO 02/23/20 21:00 02/25/20 21:37 Thiamine HCl (Thiamine HCl) 50 mg DAILY PO 02/24/20 09:00 02/26/20 08:18 Vancomycin HCl 1000 mg/IV Miscellaneous Supplies 1 each/ Dextrose 270 ml @ 270 mls/hr Q12H IV 02/24/20 01:00 02/25/20 17:13 DC 02/25/20 12:44 Vitamin D (Vitamin D) 2,000 units DAILY PO 02/24/20 09:00 02/26/20 08:16 Zolpidem Tartrate (Ambien) 10 mg QHSP PRN PO INSOMNIA 02/23/20 19:00 02/25/20 21:37 Allergies Coded Allergies: No Known Allergies (Unverified , 02/25/19) GLORIA MCKEON MD Feb 26, 2020 15:38
[2020-02-26] MEDS: MAGNESIUM OXIDE 400 MG TAB (MAG-OX) PO SCH ×2 (16:10→20:42)
--- NOTE | 2020-02-26 18:20 | REPVR ---
PROCEDURE INFORMATION: Exam: XR Left Shoulder Exam date and time: 02/26/2020 5:53 PM Age: 69 years old Clinical indication: Pain and injury or trauma; Initial encounter; Sprain or strain; Scapula; Left; Shoulder; Injury details: PT states has HX of FX humeral head, but recently had fallen and now has increase pain; Additional info: Shoulder pain TECHNIQUE: Imaging protocol: XR Left shoulder. Views: 2 or more views. COMPARISON: [facility] Shoulder, complete 07/29/2019 1:11 PM FINDINGS: Bones/joints: Displaced fracture of the left humeral neck. Old fractures of the left 4th through 7th ribs. Soft tissues: Normal. IMPRESSION: Displaced fracture of the left humeral neck. Electronically signed by: Luis M Hernandez On 02/26/2020 18:20:39 PM
[2020-02-26] MEDS: TAMSULOSIN 0.4 MG CAP PO SCH (20:42)
[2020-02-26 22:00] VITALS: BP 139/67
[2020-02-26] MEDS: zolPIDEM TARTRATE 5 MG TAB PO PRN (22:03)
[2020-02-27] MEDS: MOXIFLOXACIN 400 MG TAB PO SCH (05:27)
[2020-02-27] MEDS: LEVOTHYROXINE 25MCG TABLET (0.025MG) PO SCH (05:30)
[2020-02-27 06:00] VITALS: BP 128/56
[2020-02-27 07:14] LABS: HEMATOCRIT 28.9 % (42.0-52.0); HEMOGLOBIN 8.8 g/dl (13.5-17.5); MEAN CORPUSCULAR HEMOGLOBIN 26.6 pg (27.0-33.0); MEAN CORPUSCULAR HGB CONC 30.4 g/dl (32.0-36.5); MEAN CORPUSCULAR VOLUME 87.3 fl (80.0-96.0); PLATELET COUNT, AUTOMATED 372 10^3/uL (150-450); RED BLOOD COUNT 3.31 10^6/uL (4.30-6.10); WHITE BLOOD COUNT 10.8 10^3/uL (4.0-10.0)
[2020-02-27 07:25] LABS: BLOOD UREA NITROGEN 16 MG/DL (7-18); CALCIUM LEVEL 8.6 MG/DL (8.8-10.2); CARBON DIOXIDE LEVEL 25 MEQ/L (21-32); CHLORIDE LEVEL 105 MEQ/L (98-107); CREATININE FOR GFR 0.68 MG/DL (0.70-1.30); GLOMERULAR FILTRATION RATE > 60.0 (>49); GLUCOSE, FASTING 206 MG/DL (70-100); MAGNESIUM LEVEL 1.6 MG/DL (1.8-2.4); POTASSIUM SERUM 4.8 MEQ/L (3.5-5.1); SODIUM LEVEL 134 MEQ/L (136-145)
[2020-02-27] MEDS: SYMBICORT 160/4.5MCG INHALER 6GM INH SCH ×2 (08:33→20:16)
[2020-02-27] MEDS: HumaLOG INSULIN (NovoLOG) PER UNIT SC SCH ×4 (08:51→21:00)
[2020-02-27] MEDS: OMEPRAZOLE 20 MG CAP PO SCH ×2 (08:52→21:55)
[2020-02-27] MEDS: DULoxetine 20 MG CAP (CYMBALTA) PO SCH (08:52)
[2020-02-27] MEDS: LEVEMIR (INSULIN DETEMIR) 1 UNITS/0.01ML SC SCH (08:52)
[2020-02-27] MEDS: ACAMPROSATE CALCIUM 333 MG TABLET (CAMPRAL) PO SCH ×3 (08:52→21:55)
[2020-02-27] MEDS: CYANOCOBALAMIN 500 MCG TAB PO SCH (08:53)
[2020-02-27] MEDS: ATORVASTATIN 20 MG TAB PO SCH (08:53)
[2020-02-27] MEDS: PREGABALIN 100 MG CAP (LYRICA) PO SCH ×2 (08:53→21:55)
[2020-02-27] MEDS: FOLIC ACID 1 MG TAB PO SCH (08:53)
[2020-02-27] MEDS: VITAMIN D 1,000 INTERNATIONAL UNITS TABLET PO SCH (08:54)
[2020-02-27] MEDS: lisinopriL 20 MG TAB PO SCH (08:54)
[2020-02-27] MEDS: MAGNESIUM OXIDE 400 MG TAB (MAG-OX) PO SCH ×3 (08:54→21:55)
[2020-02-27] MEDS: THIAMINE 100 MG TAB PO SCH (08:54)
[2020-02-27] MEDS: K-PHOS NEUTRAL 250MG TABLET (SOD.PHOSPHATE/POT.PHOSPHATE) PO SCH (08:55)
[2020-02-27] MEDS: MULTIVITAMINS/MINERALS THERAP 1 TAB PO SCH (08:56)
[2020-02-27] MEDS: FINASTERIDE 5 MG TAB PO SCH (08:56)
[2020-02-27 14:00] VITALS: BP 125/62
--- NOTE | 2020-02-27 15:37 | IPNPDOC ---
Date Seen The patient was seen on 02/27/20. Progress Note SUBJECTIVE: Patient seen and examined at the bedside this morning. No complaints. Denies any diarrhea or abdominal pain. Eating/drinking well. No urinary symptoms. OBJECTIVE PHYSICAL EXAMINATION: VITAL SIGNS: Please see below. GENERAL: NAD, calm/cooperative, laying flat in bed HEENT: MMM, NC/AT, EOMI/PERRL CARDIOVASCULAR: RRR, 3/6 CHIQUIS heard best in RUSB radiating to carotids, no r/g, +s1/s2 RESPIRATORY: CTAB ABDOMINAL: Soft, slightly tender to deep palpation in RLQ, +BS, no obvious orga nomegaly EXTREMITIES: no clubbing/cyanosis/edema NEUROLOGICAL: no obvious neurologic deficits PSYCHOLOGICAL: normal mood/flat affect LABORATORY DATA, IMAGING STUDIES, MICROBIOLOGY: Please see below. Echocardiogram: results in paper chart, no vegetations, mild aortic stenosis DVT prophylaxis ordered?: TEDs/SCDs ASSESSMENT AND PLAN: This is a 69 YO M with T2DM, AF, hypothyroidism who presented with weakness/SOB and diarrhea found to have symptomatic anemia. He was transfused 2U pRBCs and hgb has remained stable. Diarrhea has resolved. On 02/21/20 he was found to have blood cultures positive for S. epidermidis and Clostridium sp and was started on Vancomycin. Repeat blood cx negative to date. The patient was found to have concern for acute cholecystitis, as gallbladder wall was thickened with sludge, no clinical signs of acute cholecystitis. CT Abd/pelvis found fluid collection in left thigh and hip concerning for etiology of bacteremia. Fluid collections were drained with no growth to suggest infectious source. Patient was switched from Vancomycin to Moxifloxacin for empiric coverage. PROBLEMS: 1. Bacteremia: Blood cultures on 02/20 positive for S. epidermidis + Clostridium sp. -repeat blood cultures (done 02/20/19 prior to abx) have no growth to date -IV vancomycin changed to PO Moxifloxacin (Day 2/) -Echo negative for vegetations -CT abd/pelvis concerning for noncalcified gallstones + fat stranding around the gallbladder concerning for acute cholecystitis; fluid collection in anterior compartment deep fat of left thigh -CT-guided drainage of fluid collection done on 02/23, will culture fluid as it may be the source of bacteremia -Surgery ([facility]) consulted about Gallbladder. RUQ US ordered. Concern for gallbladder as etiology of bacteremia -ID consulted. Concern for GI pathology vs fluid collection/hematoma on left thigh 2. L shoulder pain: -humerus fracture on XR -Ortho consulted. appareciate recommendations 3. pAF: -Holding Eliquis 2/2 suspected GIB from symptomatic anemia on admission 4. BPH: -On Flomax 5. Suicidality: -Was evaluated by Psychiatry ([facility]) who recommended increase in Cymbalta, adding Abilify and admission to [facility] once medically stable 6. Hypomagnesemia: -Mg replaced this AM 7. Alcohol Use disorder: -Continue Acamprosate, Thiamine DISPOSITION: pending ortho consult. VS, I&O, 24H, Fishbone Vital Signs/I&O Vital Signs Date Time Temp Pulse Resp B/P (MAP) Pulse Ox O2 Delivery O2 Flow Rate FiO2 02/27/20 14:00 98.0 66 20 125/62 (83) 96 Room Air I&O- Last 24 Hours up to 6 AM 02/27/20 06:00 Intake Total 2680 ml Output Total 1520 ml Balance 1160 ml Laboratory Data 24H LABS Laboratory Tests 2 02/27/20 06:02: Nucleated Red Blood Cells % (auto) 0.0, Anion Gap 4L, Glomerular Filtration Rate > 60.0, Calcium Level 8.6L, Magnesium Level 1.6L CBC/BMP Laboratory Tests 02/27/20 06:02 Microbiology Microbiology 02/24/20 Gram Stain - Final, Complete 02/24/20 Abscess Culture - Final, Complete 02/24/20 Anaerobic Culture - Final, Complete 02/22/20 Urine Culture - Final, Complete GME ATTESTATION GME ATTESTATION My faculty preceptor for this patient encounter was physically present during the encounter and was fully available. All aspects of the patient interview, examination, medical decision making process, and medical care plan development were reviewed and approved by the faculty preceptor. The faculty preceptor is aware and concurs with the plan as stated in the body of this note and will attest to such by his/her cosignature. ADELSO CHAIDEZ MD Feb 27, 2020 15:37
[2020-02-27] MEDS: zolPIDEM TARTRATE 5 MG TAB PO PRN (21:55)
[2020-02-27] MEDS: TAMSULOSIN 0.4 MG CAP PO SCH (21:55)
[2020-02-27 22:00] VITALS: BP 126/58
[2020-02-27 23:17] LABS: ALBUMIN 2.5 GM/DL (3.2-5.2); ALT/SGPT 46 U/L (12-78); BILIRUBIN,TOTAL 1.1 MG/DL (0.2-1.0); BLOOD UREA NITROGEN 10 MG/DL (7-18); C REACTIVE PROTEIN QUANTITATIV 2.13 MG/DL (0.00-0.30); CALCIUM LEVEL 8.1 MG/DL (8.8-10.2); CARBON DIOXIDE LEVEL 26 MEQ/L (21-32); CHLORIDE LEVEL 106 MEQ/L (98-107); CREATININE FOR GFR 0.59 MG/DL (0.70-1.30); GLOMERULAR FILTRATION RATE > 60.0 (>49); GLUCOSE, FASTING 162 MG/DL (70-100); MAGNESIUM LEVEL 1.6 MG/DL (1.8-2.4); PHOSPHORUS LEVEL 2.6 MG/DL (2.5-4.9); POTASSIUM SERUM 4.2 MEQ/L (3.5-5.1); SODIUM LEVEL 136 MEQ/L (136-145); TOTAL PROTEIN 5.5 GM/DL (6.4-8.2)
[2020-02-28] MEDS: MOXIFLOXACIN 400 MG TAB PO SCH (05:38)
[2020-02-28] MEDS: LEVOTHYROXINE 25MCG TABLET (0.025MG) PO SCH (05:39)
[2020-02-28 06:00] VITALS: BP 132/81
[2020-02-28 06:42] LABS: HEMATOCRIT 29.6 % (42.0-52.0); HEMOGLOBIN 8.7 g/dl (13.5-17.5); MEAN CORPUSCULAR HEMOGLOBIN 25.7 pg (27.0-33.0); MEAN CORPUSCULAR HGB CONC 29.4 g/dl (32.0-36.5); MEAN CORPUSCULAR VOLUME 87.6 fl (80.0-96.0); PLATELET COUNT, AUTOMATED 355 10^3/uL (150-450); RED BLOOD COUNT 3.38 10^6/uL (4.30-6.10); WHITE BLOOD COUNT 10.9 10^3/uL (4.0-10.0)
[2020-02-28 06:58] LABS: BLOOD UREA NITROGEN 19 MG/DL (7-18); CALCIUM LEVEL 8.7 MG/DL (8.8-10.2); CARBON DIOXIDE LEVEL 24 MEQ/L (21-32); CHLORIDE LEVEL 107 MEQ/L (98-107); CREATININE FOR GFR 0.78 MG/DL (0.70-1.30); GLOMERULAR FILTRATION RATE > 60.0 (>49); GLUCOSE, FASTING 196 MG/DL (70-100); POTASSIUM SERUM 4.7 MEQ/L (3.5-5.1); SODIUM LEVEL 137 MEQ/L (136-145)
[2020-02-28] MEDS: SYMBICORT 160/4.5MCG INHALER 6GM INH SCH ×2 (07:42→19:58)
[2020-02-28] MEDS: K-PHOS NEUTRAL 250MG TABLET (SOD.PHOSPHATE/POT.PHOSPHATE) PO SCH (08:20)
[2020-02-28] MEDS: DULoxetine 20 MG CAP (CYMBALTA) PO SCH (08:21)
[2020-02-28] MEDS: CYANOCOBALAMIN 500 MCG TAB PO SCH (08:21)
[2020-02-28] MEDS: ACAMPROSATE CALCIUM 333 MG TABLET (CAMPRAL) PO SCH ×3 (08:21→22:02)
[2020-02-28] MEDS: MULTIVITAMINS/MINERALS THERAP 1 TAB PO SCH (08:21)
[2020-02-28] MEDS: THIAMINE 100 MG TAB PO SCH (08:21)
[2020-02-28] MEDS: OMEPRAZOLE 20 MG CAP PO SCH ×2 (08:22→21:57)
[2020-02-28] MEDS: FINASTERIDE 5 MG TAB PO SCH (08:22)
[2020-02-28] MEDS: PREGABALIN 100 MG CAP (LYRICA) PO SCH ×2 (08:22→21:56)
[2020-02-28] MEDS: FOLIC ACID 1 MG TAB PO SCH (08:22)
[2020-02-28] MEDS: ATORVASTATIN 20 MG TAB PO SCH (08:23)
[2020-02-28] MEDS: MAGNESIUM OXIDE 400 MG TAB (MAG-OX) PO SCH ×2 (08:23→21:56)
[2020-02-28] MEDS: VITAMIN D 1,000 INTERNATIONAL UNITS TABLET PO SCH (08:23)
[2020-02-28] MEDS: lisinopriL 20 MG TAB PO SCH (08:24)
[2020-02-28] MEDS: LEVEMIR (INSULIN DETEMIR) 1 UNITS/0.01ML SC SCH (08:25)
[2020-02-28] MEDS: HumaLOG INSULIN (NovoLOG) PER UNIT SC SCH ×4 (08:25→21:57)
[2020-02-28 08:48] LABS: MAGNESIUM LEVEL 1.5 MG/DL (1.8-2.4)
--- NOTE | 2020-02-28 10:58 | IPNPDOC ---
Text Note Date of Service The patient was seen on 02/28/20. NOTE SUBJECTIVE: Patient seen and examined at the bedside this morning. Still complains of left shoulder pain. Denies any diarrhea or abdominal pain. Eating/drinking well. No urinary symptoms. OBJECTIVE PHYSICAL EXAMINATION: VITAL SIGNS: Please see below. GENERAL: NAD, calm/cooperative, laying flat in bed HEENT: MMM, NC/AT, EOMI/PERRL CARDIOVASCULAR: RRR, 3/6 CHIQUIS heard best in RUSB radiating to carotids, no r/g, +s1/s2 RESPIRATORY: CTAB ABDOMINAL: Soft, slightly tender to deep palpation in RLQ, +BS, no obvious organomegaly EXTREMITIES: no clubbing/cyanosis/edema NEUROLOGICAL: no obvious neurologic deficits PSYCHOLOGICAL: normal mood/flat affect LABORATORY DATA, IMAGING STUDIES, MICROBIOLOGY: Please see below. Echocardiogram: results in paper chart, no vegetations, mild aortic stenosis DVT prophylaxis ordered?: TEDs/SCDs ASSESSMENT AND PLAN: This is a 69 YO M with T2DM, AF, hypothyroidism who presented with weakness/SOB and diarrhea found to have symptomatic anemia. He was transfused 2U pRBCs and hgb has remained stable. Diarrhea has resolved. On 02/21/20 he was found to have blood cultures positive for S. epidermidis and Clostridium sp and was started on Vancomycin. Repeat blood cx negative to date. The patient was found to have concern for acute cholecystitis, as gallbladder wall was thickened with sludge, no clinical signs of acute cholecystitis. CT Abd/pelvis found fluid collection in left thigh and hip concerning for etiology of bacteremia. Fluid collections were drained with no growth to suggest infectious source. Patient was switched from Vancomycin to Moxifloxacin for empiric coverage. PROBLEMS: 1. Bacteremia: Blood cultures on 02/20 positive for S. epidermidis + Clostridium sp. -repeat blood cultures (done 02/20/19 prior to abx) have no growth to date -IV vancomycin changed to PO Moxifloxacin (Day 3/7) -Echo negative for vegetations -CT abd/pelvis concerning for noncalcified gallstones + fat stranding around the gallbladder concerning for acute cholecystitis; fluid collection in anterior compartment deep fat of left thigh -CT-guided drainage of fluid collection done on 02/23, will culture fluid as it may be the source of bacteremia -Surgery ([place]) consulted about Gallbladder. RUQ US ordered. Concern for gallbladder as etiology of bacteremia - deferred for o/p surgery if needed -ID consulted. Concern for GI pathology vs fluid collection/hematoma on left thigh - rec colonoscopy as outpatient 2. L shoulder pain: -humerus fracture on XR -Ortho consulted - recs appreciated - o/p follow up with dr woods in [place] for reverse total shoulder 3. pAF: -Holding Eliquis 2/2 suspected GIB from symptomatic anemia on admission 4. BPH: -On Flomax 5. Suicidality: - re-evaluated by psych - cleared - IMHU not needed 6. Hypomagnesemia: -Mg replaced this AM 7. Alcohol Use disorder: -Continue Acamprosate, Thiamine Dispo: would consider inpatient colonoscopy - GI is available tomorrow - given likely patient non-compliance. Otherwise, collaborating with [facility] for [facility], and with o/p follow up with ortho in [place], ID, psych, surgery. VS,Fishbone, I+O VS, Fishbone, I+O Laboratory Tests 02/28/20 05:31 02/28/20 05:39 Vital Signs Date Time Temp Pulse Resp B/P (MAP) Pulse Ox O2 Delivery O2 Flow Rate FiO2 02/28/20 08:25 65 139/73 02/28/20 06:00 98.5 18 98 Room Air I&O- Last 24 Hours up to 6 AM 02/28/20 06:00 Intake Total 1820 ml Output Total 0 ml Balance 1820 ml JOE WELSH MD Feb 28, 2020 10:58
[2020-02-28 14:00] VITALS: BP 136/86
[2020-02-28] MEDS: TAMSULOSIN 0.4 MG CAP PO SCH (21:56)
[2020-02-28 22:00] VITALS: BP 135/62
[2020-02-28] MEDS: zolPIDEM TARTRATE 5 MG TAB PO PRN (22:02)
[2020-02-29] MEDS: LEVOTHYROXINE 25MCG TABLET (0.025MG) PO SCH (05:32)
[2020-02-29] MEDS: MOXIFLOXACIN 400 MG TAB PO SCH (05:32)
[2020-02-29 06:00] VITALS: BP 130/70
[2020-02-29] MEDS: SYMBICORT 160/4.5MCG INHALER 6GM INH SCH ×2 (08:06→19:25)
[2020-02-29] MEDS: LEVEMIR (INSULIN DETEMIR) 1 UNITS/0.01ML SC SCH (08:27)
[2020-02-29] MEDS: HumaLOG INSULIN (NovoLOG) PER UNIT SC SCH ×4 (08:28→21:28)
[2020-02-29] MEDS: VITAMIN D 1,000 INTERNATIONAL UNITS TABLET PO SCH (08:28)
[2020-02-29] MEDS: OMEPRAZOLE 20 MG CAP PO SCH ×2 (08:31→21:29)
[2020-02-29] MEDS: ATORVASTATIN 20 MG TAB PO SCH (08:31)
[2020-02-29] MEDS: PREGABALIN 100 MG CAP (LYRICA) PO SCH ×2 (08:32→21:29)
[2020-02-29] MEDS: MAGNESIUM OXIDE 400 MG TAB (MAG-OX) PO SCH ×2 (08:32→21:30)
[2020-02-29] MEDS: FINASTERIDE 5 MG TAB PO SCH (08:32)
[2020-02-29] MEDS: CYANOCOBALAMIN 500 MCG TAB PO SCH (08:32)
[2020-02-29] MEDS: THIAMINE 100 MG TAB PO SCH (08:33)
[2020-02-29] MEDS: MULTIVITAMINS/MINERALS THERAP 1 TAB PO SCH (08:33)
[2020-02-29] MEDS: FOLIC ACID 1 MG TAB PO SCH (08:33)
[2020-02-29] MEDS: lisinopriL 20 MG TAB PO SCH (08:33)
[2020-02-29] MEDS: HEPARIN SOD (PORCINE) 5000UNITS/ML 1ML VIAL/SYRINGE SQ SCH ×2 (10:47→21:28)
[2020-02-29] MEDS: DULoxetine 20 MG CAP (CYMBALTA) PO SCH (10:48)
[2020-02-29] MEDS: ACAMPROSATE CALCIUM 333 MG TABLET (CAMPRAL) PO SCH ×3 (10:48→21:28)
[2020-02-29] MEDS: K-PHOS NEUTRAL 250MG TABLET (SOD.PHOSPHATE/POT.PHOSPHATE) PO SCH (10:48)
[2020-02-29 14:00] VITALS: BP 134/74
--- NOTE | 2020-02-29 14:27 | IPNPDOC ---
Text Note Date of Service The patient was seen on 02/29/20. NOTE Patient seen and examined at the bedside this morning. No complaints. Denies any diarrhea or abdominal pain. Eating/drinking well. Wants to go home OBJECTIVE PHYSICAL EXAMINATION: GENERAL: NAD, calm/cooperative, laying flat in bed HEENT: MMM, NC/AT, EOMI/PERRL CARDIOVASCULAR: RRR, 3/6 CHIQUIS heard best in RUSB radiating to carotids, no r/g, +s1/s2 RESPIRATORY: CTAB ABDOMINAL: Soft, slightly tender to deep palpation in RLQ, +BS, no obvious organomegaly EXTREMITIES: no clubbing/cyanosis/edema NEUROLOGICAL: no obvious neurologic deficits PSYCHOLOGICAL: normal mood/flat affect LABORATORY DATA, IMAGING STUDIES, MICROBIOLOGY: Please see below. Echocardiogram: results in paper chart, no vegetations, mild aortic stenosis DVT prophylaxis ordered?: TEDs/SCDs ASSESSMENT AND PLAN: This is a 69 YO M with T2DM, AF, hypothyroidism who presented with weakness/SOB and diarrhea found to have symptomatic anemia. He was transfused 2U pRBCs and hgb has remained stable. Diarrhea has resolved. On 02/21/20 he was found to have blood cultures positive for S. epidermidis and Clostridium sp and was started on Vancomycin. Repeat blood cx negative to date. The patient was found to have concern for acute cholecystitis, as gallbladder wall was thickened with sludge, no clinical signs of acute cholecystitis for which surgery saw and that thought the patinet is not a candidate for any surgery and needs an out pt appiontment and if bactremia persists then they will consider surgery as per Dr Macedo who had a conversation with them . CT Abd/pelvis found fluid collection in left thigh and hip concerning for etiology of bacteremia. Fluid collections were drained with no growth to suggest infectious source. Patient was switched from Vancomycin to Moxifloxacin for empiric coverage. PROBLEMS: 1. Bacteremia:Resolved. Blood cultures on 02/20 positive for S. epidermidis + Clostridium sp. repeat blood cultures (done 02/20/19 prior to abx) have no growth to date. IV vancomycin changed to PO Moxifloxacin (Day 2/7) Echo negative for vegetations. CT abd/pelvis concerning for noncalcified gallstones + fat stranding around the gallbladder concerning for acute cholecystitis; fluid collection in anterior compartment deep fat of left thigh. CT-guided drainage of fluid collection done on 02/23, will culture fluid as it may be the source of bacteremia. Surgery ([facility]) was consulted as there were Concern for gallbladder as etiology of bacteremia surgery saw and that thought the patinet is not a candidate for any surgery and needs an out pt appiontment and if bactremia persists then they will consider surgery. Concern for GI pathology is very low and still patient will be scheduled for colonoscopy Aslo fluid collection/hematoma on left thigh cultures have been negative 2. L shoulder pain: humerus fracture on XR. Ortho consulted. appareciate recommendations, conservative managemnt with out patinet follow up at a higher care center 3. pAF: Holding Eliquis / suspected GIB from symptomatic anemia on admission 4. BPH: On Flomax 5. Suicidality: Was evaluated by Psychiatry (Gene) who recommended increase in Cymbalta, adding Abilify and he is not suicidal any more. He is ok to be dced home as per Dr newton discussion with Psyc 6. Alcohol Use disorder: Continue Acamprosate, Thiamine DISPOSITION:Likely home in AM VS,Phie, I+O VS, Phie, I+O Vital Signs Date Time Temp Pulse Resp B/P (MAP) Pulse Ox O2 Delivery O2 Flow Rate FiO2 02/29/20 14:00 98.5 64 20 134/74 (94) 95 Room Air I&O- Last 24 Hours up to 6 AM 02/29/20 06:00 Intake Total 710 ml Balance 710 ml EWA PARSON MD Feb 29, 2020 14:27
[2020-02-29] MEDS: TAMSULOSIN 0.4 MG CAP PO SCH (21:29)
[2020-02-29] MEDS: zolPIDEM TARTRATE 5 MG TAB PO PRN (21:29)
[2020-02-29 22:00] VITALS: BP 134/72
[2020-03-01 06:00] VITALS: BP 129/73
[2020-03-01] MEDS: MOXIFLOXACIN 400 MG TAB PO SCH (06:43)
[2020-03-01] MEDS: LEVOTHYROXINE 25MCG TABLET (0.025MG) PO SCH (06:43)
[2020-03-01] MEDS: SYMBICORT 160/4.5MCG INHALER 6GM INH SCH (07:11)
[2020-03-01] MEDS: LEVEMIR (INSULIN DETEMIR) 1 UNITS/0.01ML SC SCH (09:20)
[2020-03-01] MEDS: HEPARIN SOD (PORCINE) 5000UNITS/ML 1ML VIAL/SYRINGE SQ SCH (09:20)
[2020-03-01] MEDS: MAGNESIUM OXIDE 400 MG TAB (MAG-OX) PO SCH (09:21)
[2020-03-01] MEDS: ATORVASTATIN 20 MG TAB PO SCH (09:21)
[2020-03-01] MEDS: FOLIC ACID 1 MG TAB PO SCH (09:22)
[2020-03-01] MEDS: CYANOCOBALAMIN 500 MCG TAB PO SCH (09:22)
[2020-03-01] MEDS: DULoxetine 20 MG CAP (CYMBALTA) PO SCH (09:22)
[2020-03-01] MEDS: ACAMPROSATE CALCIUM 333 MG TABLET (CAMPRAL) PO SCH (09:22)
[2020-03-01] MEDS: MULTIVITAMINS/MINERALS THERAP 1 TAB PO SCH (09:22)
[2020-03-01 09:23] VITALS: BP 129/73
[2020-03-01] MEDS: lisinopriL 20 MG TAB PO SCH (09:23)
[2020-03-01] MEDS: FINASTERIDE 5 MG TAB PO SCH (09:23)
[2020-03-01] MEDS: OMEPRAZOLE 20 MG CAP PO SCH (09:23)
[2020-03-01] MEDS: HumaLOG INSULIN (NovoLOG) PER UNIT SC SCH ×2 (09:25→13:02)
[2020-03-01] MEDS: THIAMINE 100 MG TAB PO SCH (09:29)
[2020-03-01] MEDS: PREGABALIN 100 MG CAP (LYRICA) PO SCH (09:29)
[2020-03-01] MEDS: VITAMIN D 1,000 INTERNATIONAL UNITS TABLET PO SCH (09:29)
[2020-03-01] MEDS: K-PHOS NEUTRAL 250MG TABLET (SOD.PHOSPHATE/POT.PHOSPHATE) PO SCH (09:29)
--- NOTE | 2020-03-01 10:38 | DS.PDOC ---
Discharge Summary General Date of Admission Feb 18, 2020 at 16:07 Date of Discharge 03/01/20 Discharge Summary CC: Left soulder pain Suicidal ideation Final Diagnosis Bacteremia L shoulder pain Suicidality History of Present Illness and the hospital Course: This is a 69 YO M with T2DM, AF, hypothyroidism who presented with weakness/SOB and diarrhea found to have symptomatic anemia. He was transfused 2U pRBCs and h gb has remained stable. Diarrhea has resolved. On 02/21/20 he was found to have blood cultures positive for S. epidermidis and Clostridium sp and was started on Vancomycin. Repeat blood cx negative to date. The patient was found to have concern for acute cholecystitis, as gallbladder wall was thickened with sludge, no clinical signs of acute cholecystitis for which surgery saw and that thought the patinet is not a candidate for any surgery and needs an out pt appiontment and if bactremia persists then they will consider surgery as per Dr Macedo who had a conversation with them . CT Abd/pelvis found fluid collection in left thigh and hip concerning for etiology of bacteremia. Fluid collections were drained with no growth to suggest infectious source. Patient was switched from Vancomycin to Moxifloxacin. For his Bacteremia which Resolved. Blood cultures on 02/20 positive for S. epidermidis + Clostridium sp. repeat blood cultures (done 02/20/19 prior to abx) have no growth to date. IV vancomycin changed to PO Moxif loxacin (Day 5/7). Needs two more days on discharge. Echo negative for vegetations. CT abd/pelvis concerning for noncalcified gallstones + fat stranding around the gallbladder concerning for acute cholecystitis; fluid collection in anterior compartment deep fat of left thigh. CT-guided drainage of fluid collection done on 02/23, will culture fluid as it may be the source of bacteremia. Surgery ([facility]) was consulted as there were Concern for gallbladder as etiology of bacteremia surgery saw and that thought the patinet is not a candidate for any surgery and needs an out pt appiontment and if bactremia persists then they will consider surgery. Concern for GI pathology is very low and still patient advised for colonoscopy and has been advised to talk to PCP for a referral with GI. Aslo fluid collection/hematoma on left thigh cultures have been negative. For his L shoulder pain: humerus fracture on XR. Ortho consulted. appareciate recommendations, conservative managemnt with out patinet follow up at a higher care center . He also has pAF:We were Holding Eliquis 2/2 suspected GIB from symptomatic anemia on admission which will be resumed as his Hb is stable and his Chadvac2 > 1. Discussed with him the risks and benifits of AC and he in agreement for the continuation of AC. For his Suicidality: Was evaluated by Psychiatry (Gene) who recommended increase in Cymbalta, adding Abilify and he is not suicidal any more. He is ok to be dced home as per Dr newton discussion with Psyc Physical Exam: GENERAL: NAD, calm/cooperative, laying flat in bed HEENT: MMM, NC/AT, EOMI/PERRL CARDIOVASCULAR: RRR, 3/6 CHIQUIS heard best in RUSB radiating to carotids, no r/g, +s1/s2 RESPIRATORY: CTAB ABDOMINAL: Soft, slightly tender to deep palpation in RLQ, +BS, no obvious organomegaly EXTREMITIES: no clubbing/cyanosis/edema NEUROLOGICAL: no obvious neurologic deficits PSYCHOLOGICAL: normal mood/flat affect LABORATORY DATA, IMAGING STUDIES, MICROBIOLOGY: Reviewed. Medications on DC: As per DC med List F/U appiontments : F/u with PCP in 1 week , f/u with ortho in 1 week, F/u with ID in 1 week Diet: Regular Condition on discharge : Medically optimized for DC Discharge Disposition : Home with home care. Total time spend on this discharge including coordination of care, review of chart , documentation and actual patient contact is 40 minutes. Vital Signs/I&Os Vital Signs Date Time Temp Pulse Resp B/P (MAP) Pulse Ox O2 Delivery O2 Flow Rate FiO2 03/01/20 09:23 129/73 03/01/20 09:21 68 03/01/20 06:00 98.1 18 99 Room Air I&O- Last 24 Hours up to 6 AM 03/01/20 06:00 Intake Total 1800 ml Balance 1800 ml Microbiology Microbiology 02/24/20 Gram Stain - Final, Complete 02/24/20 Abscess Culture - Final, Complete 02/24/20 Anaerobic Culture - Final, Complete 02/22/20 Urine Culture - Final, Complete Discharge Medications Scheduled Acamprosate Calcium (Acamprosate Calcium) 333 Mg Tablet., 666 MG PO TID, (Reported) Amlodipine Besylate (Amlodipine Besylate) 5 Mg Tablet, 7.5 MG PO DAILY, (Reported) Aspirin (Aspirin EC) 81 Mg Tab, 81 MG PO DAILY, (Reported) Atorvastatin Calcium (Atorvastatin Calcium) 80 Mg Tablet, 40 MG PO DAILY, (Reported) Budesonide/Formoterol (Symbicort 160-4.5 Mcg Inhaler) 6 Gm Hfa.aer.ad, 2 PUFF INH BID, (Reported) Cholecalciferol (Vitamin D3) (Vitamin D3) 1,000 Unit Tablet, 2,000 UNITS PO DAILY, (Reported) Collagenase Clostridium Hist. (Santyl) 30 Gm Oint...g., 1 DOSE TOP DAILY, (Reported) APPLY TO LESIONS ON ARMS AND LEGS Cyanocobalamin (Vitamin B-12) (Vitamin B-12) 1,000 Mcg Tablet, 1,000 MCG PO DAILY, (Reported) Duloxetine HCl (Cymbalta) 20 Mg Capsule.dr, 40 MG PO DAILY Finasteride (Finasteride) 5 Mg Tab, 5 MG PO DAILY, (Reported) Folic Acid (Folic Acid) 1 Mg Tab, 1 MG PO DAILY, (Reported) Insulin Glargine,Hum.rec.anlog (Lantus Solostar) 100 Unit/1 Ml Insuln.pen, 24 UNITS SC DAILY, (Reported) Insulin Human Lispro (Humalog) 100 Unit/1 Ml Vial, 1 DOSE SC AC, (Reported) PER SLIDING SCALE Levothyroxine Sodium (Levothyroxine Sodium) 25 Mcg Tab, 25 MCG PO DAILY, (Reported) Lisinopril (Lisinopril) 40 Mg Tablet, 20 MG PO DAILY, (Reported) Moxifloxacin HCl (Moxifloxacin HCl) 400 Mg Tablet, 400 MG PO DAILY@06 Multivitamins (Thera M Plus Tablet) 1 Tab Tab, 1 TAB PO DAILY, (Reported) [place]-3 Fatty Acids/Fish Oil (Fish Oil 1,000 mg Capsule) 1 Each Capsule, 1,000 MG PO BID, (Reported) Omeprazole (Omeprazole) 20 Mg Capsule.dr, 20 MG PO BID, (Reported) Pregabalin (Lyrica) 300 Mg Capsule, 300 MG PO BID, (Reported) Sod Phos Di, [place]/K Phos [place] (K-Phos Neutral Tablet) 1 Tab Tab, 1 TAB PO DAILY, (Reported) Tamsulosin HCl (Flomax) 0.4 Mg Cap, 0.4 MG PO DAILY, (Reported) Thiamine HCl (Vitamin B-1) 50 Mg Tablet, 50 MG PO DAILY, (Reported) Vitamin B Complex (Vitamin B Complex) 1 Each Tablet, 1 TAB PO DAILY, (Reported) Scheduled PRN Acetaminophen (Acetaminophen) 500 Mg Tablet, 1,000 MG PO Q6H PRN for PAIN, (Reported) Bacitracin (Bacitracin) 28.4 Gm Oint...g., 1 DOSE TOP DAILY PRN for WOUND CARE, (Reported) Glucagon,Human Recombinant (Glucagon Emergency Kit) 1 Mg Vial, 1 MG IM PRN PRN for LOW BLOOD SUGAR, (Reported) Nicotine (Nicotine Patch) 21 Mg/24 Hr Patch.td24, 21 MG TD DAILY PRN for SMOKING CESSATION, (Reported) Nicotine Polacrilex (Nicotine Gum) 4 Mg Gum, 4 MG MT PRN PRN for NICOTINE WITHDRAWAL, (Reported) Vits A and D/White Pet/Lanolin (A and D Ointment) 42.5 Gm Oint...g., 1 DOSE TOP DAILY PRN for WOUND CARE, (Reported) Zolpidem Tartrate (Zolpidem Tartrate) 10 Mg Tablet, 10 MG PO QHS PRN for SLEEP, (Reported) Allergies Coded Allergies: No Known Allergies (Unverified , 02/25/19) EWA PARSON MD Mar 01, 2020 10:38
--- NOTE | 2020-03-09 09:33 | CR ---
DATE OF CONSULTATION: 02/23/2020 CONSULTATION REPORT FOR: Hospitalist. REASON FOR CONSULTATION: Positive blood cultures, question gallbladder as a source of infection. HISTORY OF PRESENT ILLNESS: The patient is a 69-year-old man who was admitted on 02/18/2020 with a chief complaint of weakness and significant diarrhea. He reported multiple loose, watery stools during the course of the day, he would even be awakened at night and would sometimes not be able to get to the bathroom in time to avoid soiling himself. He became quite weak and fatigued as well. He denies having seen any definite blood with his diarrhea. He presented to the emergency department and was found to be anemic. He was admitted to the hospitalist and received two units of packed red blood cells. As part of his admission workup, he had undergone blood cultures which subsequently returned a positive culture for Staphylococcus epidermidis, as well as a positive culture for Clostridium. The patient had not complained of fevers or chills prior to admission. He had a mildly to moderately elevated white blood cell count at the time of admission. He was started on antibiotics. His workup included a CT scan of the abdomen and pelvis which suggested some possible pericholecystic stranding and possible noncalcified gallstones. Because of this finding and no other evident intraabdominal source for infection, I was asked to evaluate the patient regarding the possibility that his gallbladder could be a source for his positive blood cultures. MEDICATIONS: The patient is on multiple home medications as listed in his medical record. ALLERGIES: None known. MEDICAL HISTORY: Significant for a history of hypertension. He has diabetes mellitus type 2. He has a history of benign prostatic hyperplasia. He has a history of significant alcohol intake. He has a history of having been diagnosed with atrial fibrillation in December of this year. He has noticed some swelling at the right elbow recently diagnosed as bursitis. He does have a history of some chronic anemia as well as some neuropathy and chronic pain. He also does have a history of prior Clostridium difficile. SURGICAL HISTORY: Significant for a perforated duodenal ulcer repaired back in July of 2018. 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 FAMILY HISTORY: Significant for diabetes in both of his parents. SOCIAL HISTORY: Includes smoking and also significant alcohol intake. His current medical record indicates an intake of two pints of spirits daily. REVIEW OF SYSTEMS: The patient is not having any current chest pain or palpitations. He is not complaining of shortness of breath. He has not noticed any rectal bleeding. He denies any significant abdominal pain. He has had some discomfort associated with his frequent bowel movements but not well localized. He has certainly not had right upper quadrant pain suggestive of biliary colic. He denies any prior diagnosis of gallstones or gallbladder disease. He denies any history of hepatitis or pancreatitis. He has no history of deep venous thrombosis (DVT) or PE. PHYSICAL EXAMINATION: Patient is alert and oriented. Heart exam reveals what seems to be a regular rhythm. Lungs are clear to auscultation. Patient has normoactive bowel sounds. There is no evident hernia. The abdomen is soft throughout without appreciable mass. There is no tenderness identified in the right upper quadrant or in any other area. Extremities are without edema. He has palpable radial pulses bilaterally. LABORATORY STUDIES: On 02/23/2020 show a white count of 11, hemoglobin of 8, hematocrit of 28. Platelet count is 368,000. His chemistries were not repeated on 02/23/2020. He has not been noted to have significant elevation of his liver function tests. A CT scan of the abdomen and pelvis had been obtained. I reviewed the images personally. I also reviewed the report from the radiologist. The radiologist feels that the gallbladder may contain noncalcified stones. I do not find these to be readily apparent. The density of the material within the gallbladder does appear somewhat greater than normal bile. The gallbladder wall does appear slightly hazy and there is some pericholecystic stranding of unclear significance. He does not have any free fluid. There is no evidence of any bile duct enlargement. There is no pancreatic inflammation identified. IMPRESSION: Patient has positive blood cultures for Staphylococcus epidermidis and one for Clostridium. He was admitted with weakness and frequent diarrhea but had not complained of significant abdominal pain. His CT scan as part of his workup shows perhaps some mild thickening of the gallbladder with some haziness of the gallbladder wall and possible pericholecystic stranding. His exam shows no significant tenderness over the gallbladder or in the abdomen. His liver function tests have not been significantly elevated. It is possible, but unlikely, that the gallbladder is the source of his infection. RECOMMENDATION: I have ordered a gallbladder ultrasound to evaluate further. This should help clarify the issue of the presence of stones and possible gallbladder wall thickness. [facility]
--- NOTE | 2020-03-09 09:38 | CR ---
DATE OF CONSULTATION: 02/22/2020 REASON FOR CONSULTATION: Asked to consult by hospitalist for evaluation of Staphylococcus epidermidis bacteremia and Clostridium. HISTORY OF PRESENT ILLNESS: Mr. Lee is a 69-year-old gentleman who presented to [facility] Emergency Room with diarrhea that had started about a month prior to admission. The patient stated the diarrhea had been worsening, it was nonbloody, nonmucoid. He denied any abdominal pain but reported some nausea and lack of appetite. He had no vomiting. The patient has been afebrile. He also stated that he had been dizzy with standing with imbalance for a few months prior to admission. He had no fever, chills, or night sweats. He had some shortness of breath with exertion. Patient had chronic neck and back pain. He had been feeling depressed but that has improved. PAST MEDICAL HISTORY: Significant for hyperlipidemia, hypertension, diabetes, hypothyroidism, benign prostatic hypertrophy, and depressive disorder. He follows up the [facility]. 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 FAMILY HISTORY: Mother and father have diabetes. ALLERGIES: No known drug allergies. MEDICATIONS: - multivitamin one tablet daily - omeprazole 20 mg twice a day - Lyrica 300 mg by mouth twice a day - thiamine 50 mg by mouth daily - duloxetine 30 mg by mouth daily - finasteride 5 mg by mouth daily - folic acid 1 mg daily - K-Phos 250 mg by mouth daily - potassium by mouth - insulin sliding scale SOCIAL HISTORY: He is a smoker, one pack of cigarettes a day for 47 years. Current alcohol use, kalie two pints per day. Denies any other recreational drug use. PHYSICAL EXAMINATION: He is pleasant, in no acute distress, well-nourished, healthy appearing. Head and ears, nose, throat (ENT): Oropharynx is clear with no adenopathy. Heart: Normal S1, S2, irregular with a systolic ejection murmur heard at the right upper sternal border and left upper sternal border 3/6. Lungs: No wheezes, rales, or rhonchi. Clear to auscultation. Abdomen: Soft, nontender, no hepatosplenomegaly. Bowel sounds are present. Extremities: No clubbing, cyanosis, or edema. He has multiple scabs on both lower extremities. Right big toe amputation site clear. He has a small ulcer on the 2nd toe measuring about 1 cm, does not look infected. All of his scabs on his legs below the knees are not infected and healing. Neurologic exam: Alert, oriented times three. Motor strength is normal. Patient is independent, walking to the bathroom on his own. LABORATORIES: Sodium 137, potassium 4.5, chloride 110, bicarbonate 24, glucose 195, BUN 15, creatinine 0.73, calcium 7.3, magnesium 1.2, CRP 1.8, white count 12, hemoglobin 8, hematocrit 27.3, platelets 359. Urinalysis: Negative protein, +3 glucose, negative blood, negative nitrite. Blood culture: Staphylococcus epidermidis one out of two sets on 02/16/2020 at 1300 hours. On 02/16/2020 at 1500 hours, gram-positive cocci in clusters, also Staphylococcus epidermidis and Clostridium tertium. HbA1c is 6.6, sedimentation rate is 43. White count on 02/21/2020 was 12.15, CRP 2.22. 02/19/2020 potassium was 2.9, ALT 59, AST 104, bilirubin 2.8, phosphorous 2.1. White count on admission 02/19/2020 was 14.13. REVIEW OF SYSTEMS: Patient states has nausea and diarrhea, no abdominal pain. He has chronic imbalance, dizziness, but no headache or neck stiffness. He has a heart murmur for years, does not know what his underlying pathology is. He has not had a colonoscopy in years. No cough or shortness of breath, no pleuritic chest pain. IMPRESSION: This is a 69-year-old gentleman with diabetes with multiple small diabetic foot ulcers that did not seem infected, presents with diarrhea for at least a month duration associated with anemia, dizziness, and not feeling well. The patient has had two sets of blood cultures done on admission that had Staphylococcus epidermidis but one out of two also had Clostridium tertium. With his gastrointestinal (GI) complaints, one should rule out an intraabdominal infection, a liver abscess, underlying liver pathology, he has a history of alcohol abuse and could have underlying liver cirrhosis. Patient had significant diarrhea that he had an elevated BUN as well as significant hypokalemia. PLAN: 1. Obtain gastrointestinal (GI) plan if not already done. 2. As far as workup of diarrhea, I would suggest obtaining a colonoscopy. Patient has had diarrhea with significant hypokalemia and dehydration for the past month. Patient needs further workup. 3. Staphylococcus epidermidis bacteremia along with one other blood culture that has Clostridium makes it concerning for gastrointestinal (GI) pathology and bacteremia with possible seeding and therefore will obtain CT abdomen and pelvis with and without contrast. 4. Heart murmur which seems to be old but is quite loud. I would suggest obtaining Dr. Marcus old records, office visit note. An echo has been done but report is not available. 5. Repeat erythrocyte sedimentation rate (ESR), C-reactive protein (CRP) tomorrow and obtain alphafetoprotein. Consult gastroenterology for possible colonoscopy. If repeat blood cultures done yesterday are positive for Staphylococcus epidermidis, patient will need also a transesophageal echocardiogram. 6. Patient has received Prevnar but also needs a Tdap as he had an operation on his left eyebrow from a fall and multiple excoriations on his legs. MTDD
--- NOTE | 2020-03-09 09:43 | CR ---
DATE: 02/25/2020 INDICATION: Left humerus fracture. HISTORY OF PRESENT ILLNESS: Nba is a 69-year-old right hand dominant gentleman with multiple medical problems, who is admitted to the hospital with suicidal ideation and alcohol abuse. It sounds like he suffered a fall in July of this year, sustained a proximal humerus fracture and he has not had any orthopedic care for it. He has had progressive pain and worsening function of the shoulder. He cannot lift his arm at the shoulder at all. He does not use any assistive devices for ambulation. He tells me he has neuropathy in his hand, that is baseline. For the patient's full past medical history, past surgical history, medications, allergies, social history and review of systems; please see the admitting H&P which was reviewed. PHYSICAL EXAMINATION: GENERAL: Reveals a gentleman in no distress. He is alert and oriented x3. He answers questions appropriately. CARDIOVASCULAR: 2+ radial pulse. PULMONARY: Non-labored breathing. ABDOMEN: Nondistended. SKIN: On the left shoulder, there is a very small abrasion versus scab. There is no sign of skin tenting from the fracture. There is a moderate effusion. There is no warmth or erythema. The patient has no active forward flexion of the shoulder, any attempt at it reproduces pain. He has excellent elbow range of motion. He can make a full fist. Sensation to light touch in his hand is diminished with some paresthesias, but he says that is baseline. IMAGING STUDIES: X-ray of the left proximal humerus was done at [facility]. X-ray system reveals a severely impacted proximal humerus fracture. There are no CAT scan dedicated to the shoulder. On a CT scan of the chest in December, there has been worsening alignment with complete displacement of the fracture and bony resorption. Most recent x-rays of the proximal humerus from this hospitalization revealed greater than 100% displacement on the scapular Y view. There is an attempt at some bony callous formation, but given the degree of displacement, there is no bridging callous. 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 He does smoke a pack a day. He needs to quit smoking before someone would do surgery. He says nicotine gum works best for him. So he needs to get off the cigarettes. Essentially he does not have to do surgery, but there really is no role for Cortisone shots or physical therapy or a sling. His surgical option in my opinion, there is only one, and that is a reverse total shoulder arthroplasty. I explained that although there are lots of shoulder surgeons in the area, only a few do reverse total shoulder replacements and even fewer of them would do it for a complex case like this. His best bet is to try to see Dr. Rodriguez Mcgee at [facility] in [place], who is a very skilled and experienced shoulder surgeon. If Dr. Mcgee does not typically do a reverse for a fracture like this, the patient may have to go to [place] or [place]. I have offered to get a CAT scan or MRI, but patient would prefer to have advanced imaging performed by the surgeon, which makes sense. So, all the patient's questions were answered to his satisfaction. He needs to work on smoking cessation and he can be sent to Dr. Rodriguez Mcgee at [facility] for discussion of possible reverse shoulder replacement. BLAKE
--- NOTE | 2020-03-23 14:30 | ECGEPIP ---
SINUS RHYTHM WITH MARKED SINUS ARRHYTHMIA PROLONGED QT INTERVAL ABNORMAL ECG SEE SCANNED DOWNTIME REPORT MTDD
--- NOTE | 2020-04-01 13:40 | REP ---
ULTRASOUND-GUIDED LEFT THIGH HEMATOMA DRAIN The procedure was performed under the direct supervision of Dr. Koch. The patient has a history of a 7.1 x 3.1 x 11.2 cm fluid collection in the anterior compartment musculature of the left thigh seen on a previous CT scan dated 02/22/2020. The risks and benefits of the procedure were explained to the patient and informed consent was obtained. The left thigh hematoma was localized using ultrasound guidance. The skin was prepped and draped in a sterile fashion. 1% Lidocaine was used as a local anesthetic. Using ultrasound guidance an 8-Icelandic Skater drainage catheter was inserted using trochanter technique. 25 mL of low viscosity red colored fluid was withdrawn. The catheter was then removed. The patient tolerated the procedure well and there were no immediate complications. After the appropriate amount of monitored convalescence, the patient was discharged from the department. BLAKE
[2020-04-04 01:57] LABS: BASO # 0.1 10^3/uL (0.0-0.2); BASO % 0.4 % (0.0-1.0); EOS # 0.4 10^3/uL (0.0-0.5); EOS % 2.4 % (0.0-3.0); HEMATOCRIT 23.5 % (42.0-52.0); HEMOGLOBIN 7.1 g/dl (13.5-17.5); LYMPH # 2.7 10^3/uL (1.5-5.0); LYMPH % 18.5 % (24.0-44.0); MEAN CORPUSCULAR HEMOGLOBIN 25.5 pg (27.0-33.0); MEAN CORPUSCULAR HGB CONC 30.2 g/dl (32.0-36.5); MEAN CORPUSCULAR VOLUME 84.5 fl (80.0-96.0); MONO # 1.9 10^3/uL (0.0-0.8); MONO % 12.9 % (0.0-5.0); NEUTROPHILS # 9.1 10^3/uL (1.5-8.5); NEUTROPHILS % 63.2 % (36.0-66.0); PLATELET COUNT, AUTOMATED 339 10^3/uL (150-450); RED BLOOD COUNT 2.78 10^6/uL (4.30-6.10); WHITE BLOOD COUNT 14.5 10^3/uL (4.0-10.0)
--- NOTE | 2020-04-15 15:06 | IPN ---
DATE: 02/23/2020 Mr. Lee has no complaints today. He states his diarrhea is slightly better. He has no nausea, vomiting, or abdominal pain. He denies any fever or chills. Vital signs are stable. Heart: Normal, S1, S2 with a systolic ejection murmur 3/6 at the right upper sternal border radiating to the apex. Lungs: Clear, no wheezes, rales, or rhonchi. Abdomen: Soft, nontender, no right upper quadrant tenderness, no guarding. Positive bowel sounds. No organomegaly. Extremities: No clubbing, cyanosis, or edema. Skin: Multiple scabs below the knees, a large knee scab. Medial thigh left side, extensive hematoma from the upper thigh to the groin area. It is bluish in color, looks old, patient does not recall how he developed this hematoma. CT abdomen and pelvis done on 02/22/2020 shows noncalcified gallstones in the gallbladder and inflammatory fat stranding around the gallbladder with findings compatible with acute cholecystitis. Nonobstructive left nephrolithiasis. 7.1 x 11.2 cm anterior compartment musculature of the left thigh edema consistent with hematoma versus abscess. Another collection is seen at the interface of the left lateral hip, 9.6 x 3.1 cm, which may represent an abscess. LABORATORY DATA: Urine culture no growth on 02/22/2020. Repeat blood cultures are not in the chart. Vancomycin trough is 15.1. Sodium 136, potassium 4.2, chloride 106, bicarbonate 26, glucose 162, BUN 10, creatinine 0.59, ALT 46, AST 74, bilirubin 1.1, CRP 2.13. IMPRESSION: 1. Staphylococcus epidermidis bacteremia with Clostridium with CT abdomen findings possibility of cholecystitis although clinically the patient does not have cholecystitis. He does not have nausea, vomiting, or right upper quadrant pain. Other possible source of this bacteremia could be the hematoma with an infected abscess or the collection around the hip which is even more concerning, although patient does not complain of significant pain. 2. History of alcoholism. 3. Anemia, which was symptomatic status post two units of packed red blood cells. Hemoglobin is at 8.4. It could have been a combination of gastrointestinal (GI) bleed and the hematoma. Patient needs a colonoscopy to rule out colonic pathology versus malignancy as a cause of Clostridium. PLAN: Discuss with Dr. Koch or Dr. White whether this trochanteric hip collection needs to be drained, it is quite significantly large, to make sure it is not an abscess. Continue IV vancomycin until documented blood cultures are negative for at least [address] review of CT with Dr. Koch tomorrow. BLAKE
--- NOTE | 2020-04-15 15:07 | ECHO ---
DATE OF PROCEDURE: 02/22/2020 Height: 180 cm Weight: 90 kg REFERRING PHYSICIAN: Jessa Person M.D. INDICATION: Staphylococcus epidermidis bacteremia. MEASUREMENTS: 2D Measurements: Left ventricle diastole 5.65 cm Interventricular septum 0.96 cm Posterior wall 0.94 cm Aortic Root 3.2 cm Left atrium 5.0 cm Left atrial volume index 27.5 Inferior vena cava 2.3 cm (more than 50% respiratory variation) Doppler Measurements: Mild aortic stenosis. No aortic regurgitation Aortic valve velocity 278 cm/s Peak aortic valve gradient 31 mmHg Mean aortic valve gradient 19 mmHg Aortic valve VTI 69.3 cm LVOT velocity 117 cm/s LVOT VTI 28.9 cm Trace mitral regurgitation Mitral E velocity 96.7 cm/s Mitral A velocity 74.0 cm/s Trace tricuspid regurgitation Estimated right ventricular systolic pressure at least 36-41 mmHg Estimated right atrial pressure 5-10 mmHg No pulmonic regurgitation. Pulmonary acceleration time 204 msec. MITRAL ANNULAR TISSUE DOPPLER E prime lateral 11.6 cm/s, E prime septal 11.0 cm/s DESCRIPTION: Rhythm was sinus. No pericardial effusion. Image quality was fair. This was a 2D, M-mode, color flow Doppler, and pulsed wave Doppler examination including mitral annular tissue Doppler. CONCLUSIONS: * No vegetations. * Very mild dilatation of the left ventricle at end-diastole. Normal regional LV wall motion and wall thickening. Normal LV systolic function. LVEF 60% by visual estimate. * Moderate focal thickening and focal calcific deposits of a 3-cuspid aortic valve. Mild aortic stenosis. No aortic regurgitation. * Mild mitral annular calcification. Trace mitral regurgitation. * Moderate left atrial dilatation. * Suggestive of mild elevation of estimated right ventricle systolic pressure. * Otherwise normal appearing echocardiogram Doppler findings. [facility]
--- NOTE | 2020-04-15 15:07 | IPN ---
DATE: 02/24/2020 HISTORY: Patient was seen yesterday for evaluation of his gallbladder. He was admitted with diarrhea and had some blood cultures that were positive. A CT scan was done and this suggested some inflammatory changes involving the gallbladder, though he had no symptoms of pain in this area. I saw him yesterday and ordered an ultrasound. He reports no change in his condition today. VITAL SIGNS: Show that he has been afebrile. His pulse is in the 60s to low 70s and his blood pressure is acceptable. Intake and output shows that he has had adequate oral intake and urine output. PHYSICAL EXAMINATION: The patient is alert. He is a little inpatient or perhaps testy this morning. He is cooperative with the exam. Abdomen is mildly obese. He has bowel sounds present. The abdomen is soft and without any significant tenderness today. LABORATORY STUDIES: This morning, shows a white count of 10 which is slightly down from yesterday. His hemoglobin is 8 with a hematocrit of 28 and the platelet count is 382,000. He had a CTA with liver functions today which showed no significant elevation of his liver function tests. Ultrasound was done but I have not been able to find any reading from this. My review of the ultrasound imaging suggests that there is some very slight thickening of the gallbladder wall to perhaps 3 mm. The gallbladder itself appears to be filled with some sludge. There are no calcified stones identified. The gallbladder wall is perhaps slightly hazy but I am not convinced he has any acute inflammation present. The bile duct does not appear dilated. IMPRESSION: Patients ultrasound would suggest that the gallbladder wall is slightly thickened and the gallbladder filled with some sludge. He does not appear to have significant acute inflammation and has had no pain or tenderness. PLAN: I will discuss with the patient the findings of the ultrasound. It could be that he has a low grade infectious process within the gallbladder that could be a source for his positive blood culture, though it would be unusual in the absence of any abdominal pain or symptoms suggestive of cholecystitis. BLAKE
--- NOTE | 2020-04-15 15:09 | IPN ---
DATE: 02/25/2020 Mr. Lee complains of left shoulder pain. He stated he fell about two months ago. He was followed up by [facility] but no surgery was recommended. He has no nausea, vomiting. Diarrhea has resolved. He has no abdominal pain. He is eating his hamburger for dinner. He thinks his gallbladder is part of the problem with his chronic diarrhea but he denies any nausea or vomiting or right upper quadrant pain. He denies any hip pain. He has been afebrile. Temperature is 96.5, no fever for over 48 hours. White count is 10.7, hemoglobin 9.2, hematocrit 31.1, platelets 376. Sodium 136, potassium 4.8, chloride 107, bicarbonate 25, BUN 12, creatinine 0.64, glucose 178, calcium 8.4, magnesium 1.7, CRP 1.17. Blood cultures from 02/22/2020 are no growth so far. Urine culture is negative. Left hip fluid 25 mL was aspirated from the left hip subcutaneous area, it was mostly hematoma according to Jorge Lambert who did the procedure. Gram stain has many red cells, no organism seen, culture is pending. IMPRESSION: 1. Staphylococcus epidermidis and Clostridium tertium bacteremia. Source of bacteremia could be from infected hematoma which was drained. Patient currently is asymptomatic and afebrile. C-reactive protein (CRP) is low. Will discontinue IV vancomycin, switch him to by mouth moxifloxacin 400 mg by mouth daily, that should cover Staphylococcus epidermidis and Clostridium for a total of 7 days. 2. Diarrhea. Has resolved. Patient needs colonoscopy. 3. Acute cholecystitis based on CT of the abdomen but patient denies any nausea, vomiting, or right upper quadrant pain. His AST is 64, ALT is 45, alkaline phosphatase 172. Patient has a history of alcoholism and has abnormal liver function tests based on that. Plan: Will discuss with Dr. Ellison whether patient needs cholecystectomy. Clinically, he does not have acute cholecystitis at this time and I suspect his bacteremia came from his hematoma. 4. Left shoulder fracture with joint effusion. Patient needs to followup with [facility] or [facility] for followup and whether he needs any further intervention. He was recommended physical therapy which has not helped. BLAKE
--- NOTE | 2020-04-15 15:10 | IPN ---
DATE: 02/25/2020 HISTORY: Patient has been undergoing evaluation to look for the source of a positive blood culture. He has a history of significant alcohol use and presented initially with diarrhea as well as some weakness. His ultrasound had shown some slight thickening of the gallbladder wall with a gallbladder that appeared to be filled with sludge but no calcified stones. VITAL SIGNS: Show that he has been afebrile. His pulse remains in the 60s and 70s and the blood pressure is good. Intake and output shows that his intake yesterday was much improved with adequate urine output. PHYSICAL EXAMINATION: The patient is alert and oriented. He is not having any abdominal pain. His diarrhea has stopped and he is having no nausea or vomiting. The abdomen is mildly obese. He has bowel sounds present and the abdomen is soft and without tenderness. LABORATORY STUDIES: Today, show that his white count is 10.7, similar to yesterday, with a hemoglobin of 9 and a hematocrit of 31. Chemistries show normal electrolytes with a BUN of 12, creatinine 0.6, and a glucose of 178. He had a C-reactive protein this morning that was only 1.17. The report of the ultrasound reading by radiology is still not available. IMPRESSION: Patient has evidence for some abnormality of his gallbladder with some mild gallbladder wall thickening and a gallbladder filled with sludge but no history to suggest acute cholecystitis as a potential cause for bacteremia. Today, I had a discussion with Dr. Desouza and also Dr. Melgoza who is not inclined to think the gallbladder played a role in his positive blood culture. PLAN: I discussed the ultrasound results with the patient. I advised him that his gallbladder does not look normal but it does not also look like an acutely inflamed process and he has had no history to suggest that this was at one point acutely inflamed. For now, I would not recommend proceeding with any cholecystectomy. He has other issues that are more pressing and no specific symptoms related to the gallbladder. If he should develop symptoms in the future, I would be happy to proceed with cholecystectomy when needed. For now, I will not follow the patient closely and allow his medical and infectious disease team to continue his evaluation and treatment. BLAKE
[2020-04-17 08:35] LABS: HEMATOCRIT 28.7 % (42.0-52.0); HEMOGLOBIN 8.9 g/dl (13.5-17.5); MEAN CORPUSCULAR HEMOGLOBIN 26.5 pg (27.0-33.0); MEAN CORPUSCULAR VOLUME 85.4 fl (80.0-96.0); PLATELET COUNT, AUTOMATED 338 10^3/uL (150-450); RED BLOOD COUNT 3.36 10^6/uL (4.30-6.10); WHITE BLOOD COUNT 14.1 10^3/uL (4.0-10.0)
[2020-04-17 18:14] LABS: HEMATOCRIT 31.2 % (42.0-52.0); HEMOGLOBIN 9.4 g/dl (13.5-17.5); MEAN CORPUSCULAR HEMOGLOBIN 26.6 pg (27.0-33.0); MEAN CORPUSCULAR HGB CONC 30.1 g/dl (32.0-36.5); MEAN CORPUSCULAR VOLUME 88.1 fl (80.0-96.0); PLATELET COUNT, AUTOMATED 353 10^3/uL (150-450); RED BLOOD COUNT 3.54 10^6/uL (4.30-6.10); WHITE BLOOD COUNT 12.6 10^3/uL (4.0-10.0)
[2020-05-02 15:21] LABS: RED BLOOD COUNT 3.41 10^6/uL (4.30-6.10); WHITE BLOOD COUNT 12.2 10^3/uL (4.0-10.0)
[2020-05-02 15:22] LABS: HEMATOCRIT 30.6 % (42.0-52.0); HEMOGLOBIN 8.9 g/dl (13.5-17.5); MEAN CORPUSCULAR HEMOGLOBIN 26.1 pg (27.0-33.0); MEAN CORPUSCULAR HGB CONC 29.1 g/dl (32.0-36.5); MEAN CORPUSCULAR VOLUME 89.7 fl (80.0-96.0); PLATELET COUNT, AUTOMATED 394 10^3/uL (150-450)
[2020-05-08 07:48] LABS: BLOOD UREA NITROGEN 14 MG/DL (7-18); CALCIUM LEVEL 7.9 MG/DL (8.8-10.2); CARBON DIOXIDE LEVEL 27 MEQ/L (21-32); CHLORIDE LEVEL 111 MEQ/L (98-107); GLOMERULAR FILTRATION RATE > 60.0 (>49); GLUCOSE, FASTING 184 MG/DL (70-100); MAGNESIUM LEVEL 1.5 MG/DL (1.8-2.4); POTASSIUM SERUM 4.3 MEQ/L (3.5-5.1); SODIUM LEVEL 142 MEQ/L (136-145)
[2020-05-13 11:59] LABS: ALBUMIN 2.5 GM/DL (3.2-5.2); ALT/SGPT 71 U/L (12-78); BILIRUBIN,TOTAL 3.2 MG/DL (0.2-1.0); BLOOD UREA NITROGEN 28 MG/DL (7-18); CALCIUM LEVEL 7.4 MG/DL (8.8-10.2); CARBON DIOXIDE LEVEL 26 MEQ/L (21-32); CHLORIDE LEVEL 96 MEQ/L (98-107); CREATININE FOR GFR 1.12 MG/DL (0.70-1.30); FERRITIN 183 NG/ML (26-388); GLOMERULAR FILTRATION RATE > 60.0 (>49); GLUCOSE, FASTING 103 MG/DL (70-100); IRON (FE) 40 UG/DL (65-175); MAGNESIUM LEVEL 1.4 MG/DL (1.8-2.4); PERCENT SATURATION 12.3 % (19.7-50.0); POTASSIUM SERUM 3.8 MEQ/L (3.5-5.1); SODIUM LEVEL 131 MEQ/L (136-145); TOTAL IRON BINDING CAPACITY 325 UG/DL (250-450)
[2020-05-15 05:00] LABS: ALBUMIN 2.5 GM/DL (3.2-5.2); ALT/SGPT 59 U/L (12-78); BILIRUBIN,TOTAL 2.8 MG/DL (0.2-1.0); BLOOD UREA NITROGEN 18 MG/DL (7-18); CALCIUM LEVEL 7.5 MG/DL (8.8-10.2); CARBON DIOXIDE LEVEL 25 MEQ/L (21-32); CHLORIDE LEVEL 102 MEQ/L (98-107); CREATININE FOR GFR 0.92 MG/DL (0.70-1.30); GLOMERULAR FILTRATION RATE > 60.0 (>49); GLUCOSE, FASTING 67 MG/DL (70-100); MAGNESIUM LEVEL 2.1 MG/DL (1.8-2.4); PHOSPHORUS LEVEL 2.1 MG/DL (2.5-4.9); POTASSIUM SERUM 2.9 MEQ/L (3.5-5.1); SODIUM LEVEL 136 MEQ/L (136-145); TOTAL PROTEIN 5.8 GM/DL (6.4-8.2)
[2020-05-15 11:12] LABS: BLOOD UREA NITROGEN 14 MG/DL (7-18); CALCIUM LEVEL 7.8 MG/DL (8.8-10.2); CARBON DIOXIDE LEVEL 27 MEQ/L (21-32); CHLORIDE LEVEL 108 MEQ/L (98-107); CREATININE FOR GFR 0.87 MG/DL (0.70-1.30); GLOMERULAR FILTRATION RATE > 60.0 (>49); GLUCOSE, FASTING 132 MG/DL (70-100); HEMOGLOBIN A1c 6.6 %; POTASSIUM SERUM 4.1 MEQ/L (3.5-5.1); SODIUM LEVEL 139 MEQ/L (136-145)
[2020-05-15 13:02] LABS: BLOOD UREA NITROGEN 15 MG/DL (7-18); CALCIUM LEVEL 7.3 MG/DL (8.8-10.2); CARBON DIOXIDE LEVEL 24 MEQ/L (21-32); CHLORIDE LEVEL 110 MEQ/L (98-107); CREATININE FOR GFR 0.73 MG/DL (0.70-1.30); GLOMERULAR FILTRATION RATE > 60.0 (>49); GLUCOSE, FASTING 195 MG/DL (70-100); MAGNESIUM LEVEL 1.2 MG/DL (1.8-2.4); POTASSIUM SERUM 4.5 MEQ/L (3.5-5.1); SODIUM LEVEL 137 MEQ/L (136-145)
== END 2020-03-01 14:03 | disposition home or self-care (01) | DRG 392 ==
LOC: M ED 16:06 → M MSPAV 16:07
PROVIDERS: ADMIT Internal Medicine; ATTEND Internal Medicine
PROC: 30233N1 Transfusion of Nonautologous Red Blood Cells into Peripheral Vein, Percutaneous Approach (ICD-10-PCS; principal; 2020-02-18)
PROC: 0J9C3ZZ Drainage of Pelvic Region Subcutaneous Tissue and Fascia, Percutaneous Approach (ICD-10-PCS; 2020-02-24)
DX: R19.7 Diarrhea, unspecified (principal); S42.292K Other displaced fracture of upper end of left humerus, subsequent encounter for fracture with nonunion; R78.81 Bacteremia; E87.1 Hypo-osmolality and hyponatremia; E78.5 Hyperlipidemia, unspecified; I10 Essential (primary) hypertension; E03.9 Hypothyroidism, unspecified; N40.0 Benign prostatic hyperplasia without lower urinary tract symptoms; F32.9 Major depressive disorder, single episode, unspecified; F17.210 Nicotine dependence, cigarettes, uncomplicated; E11.621 Type 2 diabetes mellitus with foot ulcer; D64.9 Anemia, unspecified; R01.1 Cardiac murmur, unspecified; I48.0 Paroxysmal atrial fibrillation; E83.42 Hypomagnesemia; M25.412 Effusion, left shoulder; M79.81 Nontraumatic hematoma of soft tissue; W19.XXXD Unspecified fall, subsequent encounter; Y92.9 Unspecified place or not applicable; F10.10 Alcohol abuse, uncomplicated; B96.89 Other specified bacterial agents as the cause of diseases classified elsewhere; Z79.899 Other long term (current) drug therapy; Z89.411 Acquired absence of right great toe; Z79.4 Long term (current) use of insulin; Z85.820 Personal history of malignant melanoma of skin

== ENCOUNTER 2020-03-30 16:42 | Inpatient (IN) | payer BC, MEDICARE, OTHER ==
[~2020-03-30] VITALS: Ht 177.8 cm; Wt 86.2 kg
[2020-03-30] MEDS: ACAMPROSATE CALCIUM 333 MG TABLET (CAMPRAL) PO SCH (02:30)
[2020-03-30] MEDS: PREGABALIN 100 MG CAP (LYRICA) PO SCH (02:30)
[~2020-03-30 16:42] MED LIST changes: -ACAMPROSATE CALCIUM 333 MG TABLET (CAMPRAL) ONE; +BACI500O8 TOP; +CYAN100050 PO; +CYMB1CAP4 PO; +GLUC1KIT IM; +INSUHUMDS SC; +MOXI400T11 PO; +NICO21DI38 TD; +VITS42.53 TOP
[2020-03-30 17:41] LABS: MEAN CORPUSCULAR HGB CONC 28.7 g/dl (32.0-36.5); MEAN CORPUSCULAR VOLUME 87.1 fl (80.0-96.0); PLATELET COUNT, AUTOMATED 250 10^3/uL (150-450); RED BLOOD COUNT 2.24 10^6/uL (4.30-6.10); WHITE BLOOD COUNT 13.5 10^3/uL (4.0-10.0)
[2020-03-30] MEDS ORDERED: PANTOPRAZOLE 40MG VIAL (C9113 PER 1) IV ONE (17:45)
[2020-03-30] MEDS ORDERED: NS 500 ML IV ONE (17:45)
[2020-03-30 17:47] LABS: HEMATOCRIT 19.5 % (42.0-52.0); HEMOGLOBIN 5.6 g/dl (13.5-17.5)
[2020-03-30 18:04] LABS: BLOOD UREA NITROGEN 27 MG/DL (7-18); CALCIUM LEVEL 8.9 MG/DL (8.8-10.2); CARBON DIOXIDE LEVEL 24 MEQ/L (21-32); CHLORIDE LEVEL 106 MEQ/L (98-107); CREATININE FOR GFR 1.18 MG/DL (0.70-1.30); FERRITIN 16 NG/ML (26-388); GLOMERULAR FILTRATION RATE > 60.0 (>49); GLUCOSE, FASTING 235 MG/DL (70-100); IRON (FE) 16 UG/DL (65-175); PERCENT SATURATION 3.5 % (19.7-50.0); POTASSIUM SERUM 4.5 MEQ/L (3.5-5.1); SODIUM LEVEL 138 MEQ/L (136-145); TOTAL IRON BINDING CAPACITY 461 UG/DL (250-450)
[2020-03-30 18:12] LABS: FOLATE > 24.0 NG/ML (>5.4); VITAMIN B12 LEVEL 811 PG/ML (247-911)
[2020-03-30 18:53] VITALS: BP 124/60
[2020-03-30] MEDS ORDERED: IODOGEL TOP (19:04)
[2020-03-30] MEDS ORDERED: OMEP-221 PO (19:04)
[2020-03-30] MEDS ORDERED: DULO1CAP4 PO (19:04)
[2020-03-30] MEDS ORDERED: ELIQ5TAB PO (19:04)
[2020-03-30] MEDS ORDERED: MELA3TAB7 PO (19:04)
[2020-03-30] MEDS ORDERED: AUGM500T34 PO (19:04)
[2020-03-30 19:05] VITALS: BP 134/64
[2020-03-30] MEDS: NS 1,000 ML IV SCH (19:33)
[2020-03-30] MEDS ORDERED: GLUCOSE 4GM CHEW TABLET PO PRN (19:45)
[2020-03-30] MEDS ORDERED: ACETAMINOPHEN TAB 650MG DOSE (2X325MG) PO PRN (19:45)
[2020-03-30] MEDS ORDERED: DEXTROSE 50% 50 ML SYRINGE IV PRN (19:45)
[2020-03-30] MEDS ORDERED: GLUCAGON INJ 1MG VIAL SC PRN (19:45)
--- NOTE | 2020-03-30 19:47 | HPEPDOC ---
[facility] Medical History & Physical Date of Admission Mar 30, 2020 Date of Service: Mar 30, 2020 Other Provider Ger MUHAMMAD Attending Physician: TIMOTHY PHIPPS MD History and Physical TIME OF SERVICE: 8:55 PM CHIEF COMPLAINT: Sent by home appliance technician HISTORY OF PRESENT ILLNESS: This 69 year old gentleman was sent by his home appliance technician evaluation of low hemoglobin. Apparently she visited him earlier on in the day and drawn blood. The patient admits to feeling dizzy, weak and off balance, having shortness of breath, and being told that he looks more pale than usual. He is been having dark stools for 1 week. But a fall a few nights ago, which she attributes to his legs suddenly collapsing underneath him. He hit his head but didn't come to the hospital for evaluation. He denies having abdominal pain, denies having chest pain, and denies vomiting. REVIEW OF SYSTEMS: 12 point review of systems negative except as listed in HPI PAST MEDICAL/ SURGICAL HISTORY: Paroxysmal atrial fibrillation on Elquis Diverticulosis Hemorrhoids Perforation of duodenal ulcer in July 2018 History of erosive esophagitis, gastritis and duodenitis February 2019 IDDM Hypothyroidism Chronic hypertension Old T3 compression fracture Dyslipidemia BPH Aortic sclerosis History of left-sided rib fractures Chronic pain and neuropathy / Chronic left shoulder deformity and restricted movement secondary to chronic impacted intra-articular fracture of the humerus (plan was for referral to a tertiary center on an out pt basis) History of depression SOCIAL HISTORY: He smokes He drinks alcohol daily He is a FAMILY HISTORY: Diabetes ALLERGIES: Please see below. HOME MEDICATIONS: Please see below. PHYSICAL EXAMINATION: Vital Signs Date Time Temp Pulse Resp B/P (MAP) Pulse Ox O2 Delivery O2 Flow Rate FiO2 03/30/20 16:42 96.4 74 24 92/50 (64) 95 Room Air GEN: well-nourished / well developed/ NAD INTEGUMENT: not flushed/ not jaundice / has generalized pallor / mild koil onychia HEENT: lips acyanotic /mucus membranes dry and pink / sclera anicteric CVS: RRR/systolic murmur/ radial pulses intact LUNGS: able to speak full sentences without stopping to take a breath / no coughing / lungs are clear to auscultation bilaterally on room air ABDOMEN: Contour ( obese) / tympanic on percussion, soft & not tender with palpation MSK/EXTREMITIES: NCAT NEURO: CN 2-12 are grossly intact / speech is not dysarthric PSYCH: alert and oriented to person place and time/ able to understand and follow all commands LABORATORY DATA: 03/30/20 17:24 Reticulocyte # (auto) 120.5H, Nucleated Red Blood Cells % (auto) 0.5H, Percent Reticulocyte Count 5.4H, Reticulocyte Hemoglobin Equivalent 19.5L, Anion Gap 8, Glomerular Filtration Rate > 60.0, Calcium Level 8.9, Iron Level 16L, Total Iron Binding Capacity 461H, Transferrin % Saturation 3.5L, Ferritin 16L, Vitamin B12 Level 811, Folate > 24.0 MICROBIOLOGY: Please see below. ASSESSMENT: Mr. Lee is a 69-year-old male with a history of atrial fibrillation, diverticulosis, hemorrhoids, duodenal ulcer perforation, erosive esophagitis, gastritis and duodenitis, and alcohol abuse who has been having melena and will be admitted for evaluation of anemia secondary to GI bleed and SIRS. PLAN: 1. Acute ROBY 2/2 GI bleed Suspect he has an UGIB bc of the melena He drinks heavily and has a hx of diverticulosis, hemorrhoids, duodenal ulcer perforation, erosive esophagitis, gastritis and duodenitis He is not tachycardic and his MAP has increased to the 80s Rockall Score (pre-endoscopy) to determine severity of GIB = 5 points = high risk = will likely need endoscopy this admission Plan: admit to PCU / orthostats / CLD w IVF pending GI consult () / transfuse a total of 3 units prior to rechecking Hg / check ionized calcium in the morning / IVF / hold Eliquis & ASA / PPI BID / f/u Coags / it is possible that he may have an esophageal bleed & liver cirrhosis, he also meets SIRS criterial therefore I will start ceftriaxone 1mg daily for up to 7 days total / the day time team may consider infusing Venofer / since he uses ASA daily if his stool H pylori is neg, he should be discharged with daily PPI 2 SIRS vs Sepsis 2/2 GI source SIRS criteria: WBC >12 / RR > 20 Plan: telemetry / f/u lactic acid & blood cx / Ceftriaxone for possible GI source 3 Hypotension He has a history of chronic hypertension Plan: hold amlodipine, lisinopril 4 Alcohol Abuse Plan: telemetry / fall precautions/ seizure precautions/ Thiamine, Folic acid & Ativan per CIWA protocol 5 Paroxysmal atrial fibrillation Plan: hold Eliquis 6 IDDM Plan: f/u accuchecks & A1C / hypoglycemia protocol / sliding scale insulin / reduce levemir from 24 units to 12 units daily 7 Hypothyroidism Plan: Levothyroxine 8 Dyslipidemia Plan: Statin 9 BPH Plan: Finasteride / hold tamsulosin because of low blood pressure 10 History of depression Plan: Duloxetine 11 Tobacco Abuse Plan: C cessation education, nicotine patch DVT PROPHYLAXIS: SCDs DISPOSITION: home after more than 2 midnight's stay Home Medications Scheduled Acamprosate Calcium (Acamprosate Calcium) 333 Mg Tablet.dr, 666 MG PO TID Amlodipine Besylate (Amlodipine Besylate) 5 Mg Tablet, 7.5 MG PO DAILY Amoxicillin/Potassium Clav (Augmentin 500-125 Tablet) 1 Each Tablet, 500 MG PO B ID FILLED 03/21 FOR 10 DAYS Apixaban (Eliquis) 5 Mg Tablet, 5 MG PO BID Aspirin (Aspirin EC) 81 Mg Tab, 81 MG PO DAILY Atorvastatin Calcium (Atorvastatin Calcium) 80 Mg Tablet, 40 MG PO DAILY Budesonide/Formoterol (Symbicort 160-4.5 Mcg Inhaler) 6 Gm Hfa.aer.ad, 2 PUFF INH BID Cholecalciferol (Vitamin D3) (Vitamin D3) 1,000 Unit Tablet, 2,000 UNITS PO DAILY Cyanocobalamin (Vitamin B-12) (Vitamin B-12) 1,000 Mcg Tablet, 1,000 MCG PO DAILY Duloxetine Hcl (Duloxetine HCl) 20 Mg Capsule.dr, 40 MG PO DAILY Finasteride (Finasteride) 5 Mg Tab, 5 MG PO DAILY Folic Acid (Folic Acid) 1 Mg Tab, 1 MG PO DAILY Insulin Glargine,Hum.rec.anlog (Lantus Solostar) 100 Unit/1 Ml Insuln.pen, 24 UNITS SC DAILY Insulin Human Lispro (Humalog) 100 Unit/1 Ml Vial, 1 DOSE SC AC PER SLIDING SCALE Levothyroxine Sodium (Levothyroxine Sodium) 25 Mcg Tab, 25 MCG PO DAILY Lisinopril (Lisinopril) 40 Mg Tablet, 20 MG PO DAILY Melatonin (Melatonin) 3 Mg Tablet, 3 MG PO QHS Multivitamins (Thera M Plus Tablet) 1 Tab Tab, 1 TAB PO DAILY Omeprazole (Omeprazole) 40 Mg Capsule.dr, 40 MG PO BID Pregabalin (Lyrica) 300 Mg Capsule, 300 MG PO BID Sod Phos Di, Lancaster/K Phos Lancaster (K-Phos Neutral Tablet) 1 Tab Tab, 1 TAB PO DAILY Tamsulosin HCl (Flomax) 0.4 Mg Cap, 0.4 MG PO DAILY Thiamine HCl (Vitamin B-1) 50 Mg Tablet, 50 MG PO DAILY Vitamin B Complex (Vitamin B Complex) 1 Each Tablet, 1 TAB PO DAILY Scheduled PRN Acetaminophen (Acetaminophen) 500 Mg Tablet, 1,000 MG PO Q6H PRN for PAIN Cadexomer Iodine (Iodosorb) 40 Gm Gel..gram., 1 APLCT TOP DAILY PRN for WOUND CARE Glucagon,Human Recombinant (Glucagon Emergency Kit) 1 Mg Vial, 1 MG IM PRN PRN for LOW BLOOD SUGAR Nicotine (Nicotine Patch) 21 Mg/24 Hr Patch.td24, 21 MG TD DAILY PRN for SMOKING CESSATION Nicotine Polacrilex (Nicotine Gum) 4 Mg Gum, 4 MG MT PRN PRN for NICOTINE WIT HDRAWAL Zolpidem Tartrate (Zolpidem Tartrate) 10 Mg Tablet, 10 MG PO QHS PRN for SLEEP Allergies Coded Allergies: No Known Allergies (Unverified , 02/25/19) A-FIB/CHADSVASC A-FIB History Current/History of A-Fib/PAF?: Yes Current PO Anticoag Therapy: No Treatment Reason Anticoagulant not given: Current bleeding TIMOTHY PHIPPS MD Mar 30, 2020 19:46
[2020-03-30 20:45] VITALS: BP 138/65
[2020-03-30] MEDS ORDERED: HumaLOG INSULIN (NovoLOG) PER UNIT SC SCH (21:00)
[2020-03-30] MEDS ORDERED: NICOTINE 21MG/24HR 1 EA TRANSDERMAL TD PRN (23:30)
[2020-03-30] MEDS ORDERED: LORazepam 2 MG/ML VIAL IV PRN (23:30)
[2020-03-30 23:45] VITALS: BP 106/53
[2020-03-31] VITALS (13 sets, daily range): BP systolic 97–188; BP diastolic 55–90
[2020-03-31 02:02] LABS: INR 1.29; PROTHROMBIN TIME 16.4 SECONDS (12.5-14.3)
[2020-03-31] MEDS: SYMBICORT 160/4.5MCG INHALER 6GM INH SCH ×3 (02:42→19:47)
[2020-03-31] MEDS ORDERED: DEXTROSE 50% 50 ML SYRINGE IV PRN (02:45)
[2020-03-31] MEDS ORDERED: GLUCAGON INJ 1MG VIAL SC PRN (02:45)
[2020-03-31] MEDS ORDERED: GLUCOSE 4GM CHEW TABLET PO PRN (02:45)
[2020-03-31] MEDS: HumaLOG INSULIN (NovoLOG) PER UNIT SC SCH ×4 (03:00→18:10)
[2020-03-31] MEDS: NS 1,000 ML IV SCH (05:42)
[2020-03-31] MEDS: PANTOPRAZOLE 40MG VIAL (C9113 PER 1) IV SCH ×2 (05:53→18:09)
[2020-03-31 05:55] LABS: HEMATOCRIT 25.7 % (42.0-52.0); MEAN CORPUSCULAR HEMOGLOBIN 26.2 pg (27.0-33.0); MEAN CORPUSCULAR HGB CONC 31.1 g/dl (32.0-36.5); MEAN CORPUSCULAR VOLUME 84.3 fl (80.0-96.0); PLATELET COUNT, AUTOMATED 205 10^3/uL (150-450); RED BLOOD COUNT 3.05 10^6/uL (4.30-6.10); WHITE BLOOD COUNT 11.7 10^3/uL (4.0-10.0)
[2020-03-31] MEDS ORDERED: cefTRIAXone SOD 1GM VIAL (J0696 PER 250MG) IM SCH (06:00)
[2020-03-31 06:17] LABS: BLOOD UREA NITROGEN 22 MG/DL (7-18); CALCIUM LEVEL 8.2 MG/DL (8.8-10.2); CARBON DIOXIDE LEVEL 25 MEQ/L (21-32); CHLORIDE LEVEL 110 MEQ/L (98-107); CREATININE FOR GFR 0.87 MG/DL (0.70-1.30); GLOMERULAR FILTRATION RATE > 60.0 (>49); GLUCOSE, FASTING 98 MG/DL (70-100); MAGNESIUM LEVEL 1.6 MG/DL (1.8-2.4); SODIUM LEVEL 139 MEQ/L (136-145)
[2020-03-31 06:19] LABS: ALBUMIN 2.6 GM/DL (3.2-5.2); ALT/SGPT 21 U/L (12-78); BILIRUBIN,TOTAL 0.7 MG/DL (0.2-1.0); BLOOD UREA NITROGEN 21 MG/DL (7-18); CALCIUM LEVEL 8.5 MG/DL (8.8-10.2); CARBON DIOXIDE LEVEL 26 MEQ/L (21-32); CHLORIDE LEVEL 110 MEQ/L (98-107); CREATININE FOR GFR 0.86 MG/DL (0.70-1.30); GLOMERULAR FILTRATION RATE > 60.0 (>49); GLUCOSE, FASTING 100 MG/DL (70-100); POTASSIUM SERUM 3.8 MEQ/L (3.5-5.1); SODIUM LEVEL 141 MEQ/L (136-145); TOTAL PROTEIN 5.7 GM/DL (6.4-8.2)
[2020-03-31] MEDS: cefTRIAXone SOD 1 GM in D5W MINI-BAG PLUS 50 ML IV SCH (07:01)
[2020-03-31] MEDS ORDERED: HumaLOG INSULIN (NovoLOG) PER UNIT SC SCH (07:30)
[2020-03-31] MEDS: FINASTERIDE 5 MG TAB PO SCH (08:44)
[2020-03-31] MEDS: ACAMPROSATE CALCIUM 333 MG TABLET (CAMPRAL) PO SCH ×3 (08:44→20:55)
[2020-03-31] MEDS: PREGABALIN 100 MG CAP (LYRICA) PO SCH ×2 (08:45→20:55)
[2020-03-31] MEDS: LEVOTHYROXINE 25MCG TABLET (0.025MG) PO SCH (08:45)
[2020-03-31] MEDS: ATORVASTATIN 20 MG TAB PO SCH (08:45)
[2020-03-31] MEDS: DULoxetine 20 MG CAP (CYMBALTA) PO SCH (08:45)
[2020-03-31] MEDS: VITAMIN D 1,000 INTERNATIONAL UNITS TABLET PO SCH (08:45)
[2020-03-31] MEDS: MAG SULF 1GM/100ML (MAG RUN) 1 GM in IV 1 EA IV SCH ×2 (08:47→09:52)
[2020-03-31] MEDS: THIAMINE 200MG/2ML VIAL (J3411 PER 100MG) IV SCH (08:48)
[2020-03-31] MEDS ORDERED: FLUBLOK(EGG FREE)(QUAD)INFLUENZA VACC 0.5ML SYRINGE 18YRS & OLDER IM ONE (09:00)
[2020-03-31] MEDS: LEVEMIR (INSULIN DETEMIR) 1 UNITS/0.01ML SC SCH (09:07)
[2020-03-31] MEDS: FOLIC ACID 1 MG in NS 50 ML IV SCH (11:23)
[2020-03-31 13:12] LABS: MAGNESIUM LEVEL 1.8 MG/DL (1.8-2.4)
[2020-03-31 13:29] LABS: HEMATOCRIT 26.6 % (42.0-52.0); HEMOGLOBIN 8.3 g/dl (13.5-17.5); MEAN CORPUSCULAR HEMOGLOBIN 26.4 pg (27.0-33.0); MEAN CORPUSCULAR HGB CONC 31.2 g/dl (32.0-36.5); MEAN CORPUSCULAR VOLUME 84.7 fl (80.0-96.0); PLATELET COUNT, AUTOMATED 230 10^3/uL (150-450); RED BLOOD COUNT 3.14 10^6/uL (4.30-6.10); WHITE BLOOD COUNT 11.5 10^3/uL (4.0-10.0)
[2020-03-31] MEDS ORDERED: SLF 3 ML SYR IV PRN (14:15)
[2020-03-31] MEDS: lisinopriL 20 MG TAB PO SCH (16:05)
[2020-03-31 18:00] LABS: HEMATOCRIT 26.5 % (42.0-52.0); HEMOGLOBIN 8.2 g/dl (13.5-17.5); MEAN CORPUSCULAR HEMOGLOBIN 26.3 pg (27.0-33.0); MEAN CORPUSCULAR HGB CONC 30.9 g/dl (32.0-36.5); MEAN CORPUSCULAR VOLUME 84.9 fl (80.0-96.0); PLATELET COUNT, AUTOMATED 205 10^3/uL (150-450); RED BLOOD COUNT 3.12 10^6/uL (4.30-6.10); WHITE BLOOD COUNT 10.8 10^3/uL (4.0-10.0)
--- NOTE | 2020-03-31 18:41 | IPNPDOC ---
Subjective Date Seen The patient was seen on 03/31/20. Subjective Chief Complaint/HPI Mr. Lee is a 69-year-old male with A. fib on Eliquis alcohol use, NSAID use, who is here for an acute upper GI bleed. This morning, he reported some lightheadedness, but otherwise denied any fever or chills, chest pain, dyspnea, cough, or dysuria. Later in the day, the nurses noted that he had dark tarry stool. Occult stools positive for blood. Spoke with GI. Since he had been on Eliquis, he will have to wait an additional day. Recommended that we continued a clear liquid diet. Constitutional: Denies: Chills, Fever Pulmonary: Denies: Dyspnea Cardiovascular: Denies: Chest Pain Gastrointestinal: Reports: Other Symptoms (dark tarry stool); Denies: Abdominal Pain Genitourinary: Denies: Dysuria Objective Physical Examination General Exam: Positive: Alert, Cooperative, No Acute Distress Eye Exam: Positive: EOMI; Negative: Sclera icteric ENT Exam: Positive: Atraumatic Neck Exam: Positive: Supple Chest Exam: Positive: Clear to auscultation Heart Exam: Positive: Rate Normal, Regular Rhythm Abdomen Exam: Positive: Normal bowel sounds, Soft Neuro Exam: Positive: Cranial Nerves 3-12 NL Psych Exam: Positive: Mental status NL, Mood NL Assessment /Plan Assessment Mr. Lee is a 69-year-old male with A. fib on anticoagulation, NSAID use, and alcohol use who is here for an upper GI bleed. GI has been consulted pending EGD. Until then patient will be off of anticoagulants, on a clear liquid diet, and twice a day IV Protonix. Further recommendations pending patient's clinical course Plan/VTE VTE Prophylaxis Ordered?: Yes Plan 1. Acute upper GI bleed secondary to anticoagulation, NSAIDs, alcohol GI following, recommendations appreciated. Pending EGD Continue to hold anticoagulation and antiplatelet therapy On a clear liquid diet Twice a day IV Protonix -Ceftriaxone empirically 2. Acute blood loss anemia secondary to upper GI bleed Initially hemoglobin was 5.6. He was given 3 units of packed red blood cells. Appropriately increased to 8 Iron is low at 16. TIBC elevated at 461. Ferritin low at 18 Continue to monitor 3. Iron deficiency anemia After EGD consider iron supplementation 4. Hypertension Initially he was hypotensive. He was given blood and fluids and his antihypertensives were held Blood pressure increased this afternoon. Stopped IV fluids and restarted antihypertensives 5. Alcohol abuse He'll be monitored on telemetry Thiamine, folic acid, and Ativan pursuable protocol 6. Paroxysmal atrial fibrillation Holding Eliquis due to GI bleed 7. Diabetes mellitus Reduced Levemir from 24 units to 12 units daily due to clear liquid diet Sinus co-insulin and hypoglycemia protocol 8. Hypothyroidism Levothyroxine 9. Dyslipidemia Statin 10. BPH Finasteride Tamsulosin held due to hypotension. His antihypertensives don't help, we'll add on tamsulosin 11. Depression Duloxetine 12. Tobacco abuse -nicotine patch 13. DVT prophylaxis No chemical prophylaxis due to GI bleed. SCDs and teds VS, I&O, 24H, Fishbone Vital Signs/I&O Vital Signs Date Time Temp Pulse Resp B/P (MAP) Pulse Ox O2 Delivery O2 Flow Rate FiO2 03/31/20 16:05 188/89 03/31/20 15:22 80 03/31/20 14:00 98.0 18 95 Room Air I&O- Last 24 Hours up to 6 AM 03/31/20 06:00 Intake Total 3265 ml Output Total 400 ml Balance 2865 ml Laboratory Data 24H LABS Laboratory Tests 2 03/31/20 01:36: Prothrombin Time 16.4H, Prothromb Time International Ratio 1.29, Lactic Acid Level 2.0 03/31/20 02:39: Bedside Glucose (Misc Panel) 168H 03/31/20 05:44: Nucleated Red Blood Cells % (auto) 0.3H, Anion Gap 5L, Glomerular Filtration Rate > 60.0, Calcium Level 8.5L, Whole Blood Ionized Calcium 4.4L, Magnesium Level 1.8, Total Bilirubin 0.7, Aspartate Amino Transf (AST/SGOT) 30, Alanine Aminotransferase (ALT/SGPT) 21, Alkaline Phosphatase 124H, Total Protein 5.7L, Albumin 2.6L, Albumin/Globulin Ratio 0.8 03/31/20 09:06: Bedside Glucose (Misc Panel) 190H 03/31/20 11:26: 03/31/20 11:52: Bedside Glucose (Misc Panel) 182H 03/31/20 13:12: Magnesium Level 2.2 03/31/20 13:15: Nucleated Red Blood Cells % (auto) 0.3H 03/31/20 15:08: Coronavirus (COVID-19)(PCR) NEGATIVE 03/31/20 17:51: Nucleated Red Blood Cells % (auto) 0.5H CBC/BMP Laboratory Tests 03/31/20 01:36 03/31/20 05:44 03/31/20 13:15 03/31/20 17:51 Microbiology Microbiology 03/31/20 Stool Occult Blood (BRIAN) - Final, Complete 03/31/20 Blood Culture, Received Pending REBECCA MURO DO Mar 31, 2020 18:41
[2020-03-31] MEDS: SLF 3 ML SYR IV SCH (20:55)
[2020-04-01] VITALS (11 sets, daily range): BP systolic 136–178; BP diastolic 65–83
[2020-04-01 00:38] LABS: HEMATOCRIT 24.8 % (42.0-52.0); HEMOGLOBIN 7.6 g/dl (13.5-17.5); MEAN CORPUSCULAR HEMOGLOBIN 25.9 pg (27.0-33.0); MEAN CORPUSCULAR HGB CONC 30.6 g/dl (32.0-36.5); MEAN CORPUSCULAR VOLUME 84.6 fl (80.0-96.0); PLATELET COUNT, AUTOMATED 199 10^3/uL (150-450); RED BLOOD COUNT 2.93 10^6/uL (4.30-6.10); WHITE BLOOD COUNT 9.9 10^3/uL (4.0-10.0)
[2020-04-01 06:05] LABS: HEMATOCRIT 26.1 % (42.0-52.0); HEMOGLOBIN 7.9 g/dl (13.5-17.5); MEAN CORPUSCULAR HEMOGLOBIN 25.8 pg (27.0-33.0); MEAN CORPUSCULAR HGB CONC 30.3 g/dl (32.0-36.5); MEAN CORPUSCULAR VOLUME 85.3 fl (80.0-96.0); PLATELET COUNT, AUTOMATED 202 10^3/uL (150-450); RED BLOOD COUNT 3.06 10^6/uL (4.30-6.10); WHITE BLOOD COUNT 8.2 10^3/uL (4.0-10.0)
[2020-04-01 06:42] LABS: BLOOD UREA NITROGEN 10 MG/DL (7-18); CALCIUM LEVEL 8.4 MG/DL (8.8-10.2); CARBON DIOXIDE LEVEL 22 MEQ/L (21-32); CHLORIDE LEVEL 111 MEQ/L (98-107); CREATININE FOR GFR 0.75 MG/DL (0.70-1.30); GLOMERULAR FILTRATION RATE > 60.0 (>49); GLUCOSE, FASTING 112 MG/DL (70-100); POTASSIUM SERUM 4.5 MEQ/L (3.5-5.1); SODIUM LEVEL 140 MEQ/L (136-145)
[2020-04-01] MEDS: SLF 3 ML SYR IV SCH ×3 (06:43→20:43)
[2020-04-01] MEDS: PANTOPRAZOLE 40MG VIAL (C9113 PER 1) IV SCH ×2 (06:43→16:38)
[2020-04-01] MEDS: HumaLOG INSULIN (NovoLOG) PER UNIT SC SCH ×4 (06:43→16:48)
[2020-04-01] MEDS: cefTRIAXone SOD 1 GM in D5W MINI-BAG PLUS 50 ML IV SCH (07:32)
[2020-04-01] MEDS: LEVOTHYROXINE 25MCG TABLET (0.025MG) PO SCH (07:32)
[2020-04-01] MEDS: ACAMPROSATE CALCIUM 333 MG TABLET (CAMPRAL) PO SCH ×3 (07:32→20:41)
[2020-04-01] MEDS: DULoxetine 20 MG CAP (CYMBALTA) PO SCH (07:33)
[2020-04-01] MEDS: lisinopriL 20 MG TAB PO SCH (07:34)
[2020-04-01] MEDS: PREGABALIN 100 MG CAP (LYRICA) PO SCH ×2 (07:34→20:41)
[2020-04-01] MEDS: FINASTERIDE 5 MG TAB PO SCH (07:34)
[2020-04-01] MEDS: THIAMINE 200MG/2ML VIAL (J3411 PER 100MG) IV SCH (07:34)
[2020-04-01] MEDS: ATORVASTATIN 20 MG TAB PO SCH (07:34)
[2020-04-01] MEDS: VITAMIN D 1,000 INTERNATIONAL UNITS TABLET PO SCH (07:35)
[2020-04-01] MEDS: SYMBICORT 160/4.5MCG INHALER 6GM INH SCH ×2 (07:46→17:58)
[2020-04-01] MEDS: LEVEMIR (INSULIN DETEMIR) 1 UNITS/0.01ML SC SCH (09:00)
[2020-04-01 09:30] LABS: HEMATOCRIT 28.5 % (42.0-52.0); HEMOGLOBIN 8.8 g/dl (13.5-17.5)
[2020-04-01] MEDS: FOLIC ACID 1 MG in NS 50 ML IV SCH (10:00)
[2020-04-01] MEDS ORDERED: fentaNYL 100 MCG/2 ML INJECTION (J3010) As Ordered ONE (15:27)
--- NOTE | 2020-04-01 15:51 | ROOR ---
Patient Name: Nba Lee Procedure Date: 04/01/2020 3:21 PM Date of : 1950 Age: 69 Room: [facility] Gender: Male Note Status: Finalized Procedure: Upper GI endoscopy Indications: Acute post hemorrhagic anemia Providers: Alcides HUIZAR MD Referring MD: Ger Malik pa-c [place], [facility], Admin. Requesting Provider: Medicines: Monitored Anesthesia Care Complications: No immediate complications. Procedure: Pre-Anesthesia Assessment: - The heart rate, respiratory rate, oxygen saturations, blood pressure, adequacy of pulmonary ventilation, and response to care were monitored throughout the procedure. The Endoscope was introduced through the mouth, and advanced to the second part of duodenum. The upper GI endoscopy was accomplished without difficulty. The patient tolerated the procedure well. Findings: Two tongues of salmon-colored mucosa were present from 29 to 31 cm. No other visible abnormalities were present. The maximum longitudinal extent of these esophageal mucosal changes was 3 cm in length. Biopsies were taken with a cold forceps for histology. The entire examined stomach was normal. A single diminutive angioectasia with bleeding on contact was found in the second portion of the duodenum. For hemostasis, two hemostatic clips were successfully placed. There was no bleeding at the end of the procedure. The exam was otherwise without abnormality. There is no endoscopic evidence of inflammation, mucosal abnormalities or ulceration in the entire examined duodenum. Impression: - [place]-colored mucosa suspicious for short-segment (2 cm) Abbott's esophagus. Biopsied. - Normal stomach. - A single angioectasia in the duodenum-dubious significance. Clips were placed. - The examination was otherwise normal. Recommendation: - His last colonoscopy was 02/2019. Dr Kim notes small polyps and diverticulosis. I suspect his acute gi blood loss was related to diverticular bleeding. cannot entirely r/o the duodenal avm, but this appears innocent. - Rec Holding anticoagulation for 5 days, then can resume. Monitor H&H. GI Follow up with Dr Kim. Alcides Huizar MD Alcides HUIZAR MD 04/01/2020 3:50:47 PM Electronically signed by Alcides HUIZAR MD Number of Addenda: 0 Note Initiated On: 04/01/2020 3:21 PM Estimated Blood Loss: Estimated blood loss: none.
[2020-04-01] MEDS ORDERED: FERROUS GLUCONATE 324 MG TAB PO SCH (21:00)
[2020-04-01] MEDS ORDERED: HumaLOG INSULIN (NovoLOG) PER UNIT SC SCH (21:00)
--- NOTE | 2020-04-01 22:36 | IPNPDOC ---
Subjective Date Seen The patient was seen on 04/01/20. Subjective Chief Complaint/HPI Mr. Lee is a 69-year-old male with A. fib on Eliquis alcohol use, NSAID use, who is here for an acute upper GI bleed. Patient was seen earlier in the day. Denies any fever/chills, dyspnea, chest pain, abdominal pain, or dysuria. This afternoon, he was taken to EGD. He was found to have possible barretts esophagus and angioectasia in the duodenum which was clipped. Constitutional: Denies: Chills, Fever Pulmonary: Denies: Dyspnea Cardiovascular: Denies: Chest Pain Gastrointestinal: Denies: Abdominal Pain Genitourinary: Denies: Dysuria Objective Physical Examination General Exam: Positive: Alert, Cooperative, No Acute Distress Eye Exam: Positive: EOMI; Negative: Sclera icteric ENT Exam: Positive: Atraumatic Neck Exam: Positive: Supple Chest Exam: Positive: Clear to auscultation Heart Exam: Positive: Rate Normal, Regular Rhythm Abdomen Exam: Positive: Normal bowel sounds, Soft Neuro Exam: Positive: Cranial Nerves 3-12 NL Psych Exam: Positive: Mental status NL, Mood NL Assessment /Plan Assessment Mr. Lee is a 69-year-old male with A. fib on anticoagulation, NSAID use, and alcohol use who is here for an upper GI bleed. He went to EGD. He was found to possibly have barretts esophagus. They also found angioectasia in the duodenum and clips were placed. Otherwise, he is to hold on anticoagulation for 5 days before resuming. Plan/VTE VTE Prophylaxis Ordered?: Yes Plan 1. Acute upper GI bleed secondary to anticoagulation, NSAIDs, alcohol GI following, recommendations appreciated. EGD today. Hold anticoagulation for 5 days. Twice a day IV Protonix -Ceftriaxone empirically 2. Acute blood loss anemia secondary to upper GI bleed Initially hemoglobin was 5.6. He was given 3 units of packed red blood cells. Appropriately increased to 8 Iron is low at 16. TIBC elevated at 461. Ferritin low at 18 Continue to monitor 3. Iron deficiency anemia Will start on iron supplementation 4. Hypertension On home medications for blood pressure. Blood pressure well controlled 5. Alcohol abuse He'll be monitored on telemetry Thiamine, folic acid, and Ativan pursuable protocol 6. Paroxysmal atrial fibrillation Holding Eliquis due to GI bleed. Cannot restart until 5 days 7. Diabetes mellitus Sliding scale insulin and Levemir 8. Hypothyroidism Levothyroxine 9. Dyslipidemia Statin 10. BPH Finasteride Tamsulosin held due to hypotension. His antihypertensives don't help, we'll add on tamsulosin 11. Depression Duloxetine 12. Tobacco abuse -nicotine patch 13. DVT prophylaxis No chemical prophylaxis due to GI bleed. SCDs and teds VS, I&O, 24H, Fishbone Vital Signs/I&O Vital Signs Date Time Temp Pulse Resp B/P (MAP) Pulse Ox O2 Delivery O2 Flow Rate FiO2 04/01/20 20:00 98.0 71 18 136/65 (88) 94 Room Air I&O- Last 24 Hours up to 6 AM 04/01/20 06:00 Intake Total 1490 ml Output Total 2200 ml Balance -710 ml Laboratory Data 24H LABS Laboratory Tests 2 04/01/20 00:22: Nucleated Red Blood Cells % (auto) 0.4H 04/01/20 01:41: Bedside Glucose (Misc Panel) 102 04/01/20 05:31: Nucleated Red Blood Cells % (auto) 0.2H, Anion Gap 7L, Glomerular Filtration Rate > 60.0, Calcium Level 8.4L 04/01/20 06:40: Bedside Glucose (Misc Panel) 134H 04/01/20 10:04: Bedside Glucose (Misc Panel) 161H 04/01/20 12:35: Bedside Glucose (Misc Panel) 160H 04/01/20 16:40: Bedside Glucose (Misc Panel) 135H 04/01/20 20:42: Bedside Glucose (Misc Panel) 176H CBC/BMP Laboratory Tests 04/01/20 00:22 04/01/20 05:31 04/01/20 08:56 Microbiology Microbiology 03/31/20 Stool Occult Blood (BRIAN) - Final, Complete 03/31/20 Blood Culture - Preliminary, Resulted No growth after 24 hours . All specim... REBECCA MURO DO Apr 01, 2020 22:36
[2020-04-02] VITALS: BP 149/67
[2020-04-02 04:00] VITALS: BP 145/69
[2020-04-02] MEDS: SLF 3 ML SYR IV SCH (04:15)
[2020-04-02] MEDS: PANTOPRAZOLE 40MG VIAL (C9113 PER 1) IV SCH (04:15)
[2020-04-02] MEDS: cefTRIAXone SOD 1 GM in D5W MINI-BAG PLUS 50 ML IV SCH (06:43)
[2020-04-02] MEDS: SYMBICORT 160/4.5MCG INHALER 6GM INH SCH (07:45)
[2020-04-02 08:00] VITALS: BP 170/82
[2020-04-02] MEDS ORDERED: FOLIC ACID 1 MG TAB PO SCH (09:00)
[2020-04-02] MEDS: ACAMPROSATE CALCIUM 333 MG TABLET (CAMPRAL) PO SCH (09:00)
[2020-04-02 09:24] LABS: HEMATOCRIT 28.7 % (42.0-52.0); HEMOGLOBIN 8.7 g/dl (13.5-17.5); MEAN CORPUSCULAR HEMOGLOBIN 25.6 pg (27.0-33.0); MEAN CORPUSCULAR HGB CONC 30.3 g/dl (32.0-36.5); MEAN CORPUSCULAR VOLUME 84.4 fl (80.0-96.0); PLATELET COUNT, AUTOMATED 209 10^3/uL (150-450); WHITE BLOOD COUNT 8.2 10^3/uL (4.0-10.0)
[2020-04-02 09:45] LABS: BLOOD UREA NITROGEN 11 MG/DL (7-18); CALCIUM LEVEL 8.6 MG/DL (8.8-10.2); CARBON DIOXIDE LEVEL 22 MEQ/L (21-32); CHLORIDE LEVEL 109 MEQ/L (98-107); CREATININE FOR GFR 0.87 MG/DL (0.70-1.30); GLOMERULAR FILTRATION RATE > 60.0 (>49); GLUCOSE, FASTING 240 MG/DL (70-100); POTASSIUM SERUM 4.6 MEQ/L (3.5-5.1); SODIUM LEVEL 138 MEQ/L (136-145)
[2020-04-02] MEDS: THIAMINE 200MG/2ML VIAL (J3411 PER 100MG) IV SCH (09:52)
[2020-04-02] MEDS: LEVEMIR (INSULIN DETEMIR) 1 UNITS/0.01ML SC SCH (09:52)
[2020-04-02] MEDS: HumaLOG INSULIN (NovoLOG) PER UNIT SC SCH ×2 (09:52→12:25)
[2020-04-02 09:53] VITALS: BP 170/82
[2020-04-02] MEDS: DULoxetine 20 MG CAP (CYMBALTA) PO SCH (09:53)
[2020-04-02] MEDS: lisinopriL 20 MG TAB PO SCH (09:53)
[2020-04-02] MEDS: VITAMIN D 1,000 INTERNATIONAL UNITS TABLET PO SCH (09:53)
[2020-04-02] MEDS: ATORVASTATIN 20 MG TAB PO SCH (09:53)
[2020-04-02] MEDS: FINASTERIDE 5 MG TAB PO SCH (09:53)
[2020-04-02] MEDS: PREGABALIN 100 MG CAP (LYRICA) PO SCH (09:54)
[2020-04-02] MEDS: LEVOTHYROXINE 25MCG TABLET (0.025MG) PO SCH (09:54)
[2020-04-02] MEDS ORDERED: FERR32TA PO (11:25)
--- NOTE | 2020-04-02 20:22 | DS.PDOC ---
Discharge Summary General Date of Admission Mar 30, 2020 at 19:33 Date of Discharge 04/02/2020 Attending Physician: REBECCA MURO DO Specialist/Consultants Involve: FLAVIA HUIZAR MD Specialist/Consultants Involve GI, Dr. Huizar Discharge Summary PROCEDURES PERFORMED DURING STAY: EGD on 04/01/2020 ADMITTING DIAGNOSES: 1. Acute upper GI bleed secondary to Eliquis, Aspirin, and alcohol use 2. Hypotension secondary to blood loss anemia 3. Alcohol abuse 4. Paroxysmal atrial fibrillation 5. Diabetes mellitus 7. Hypothyroidism 8. Dyslipidemia 9. BPH 10. Depression 11. Tobacco abuse DISCHARGE DIAGNOSES: 1. Acute upper GI bleed secondary to Eliquis, Aspirin, and alcohol use 2. Hypotension secondary to blood loss anemia 3. Alcohol abuse 4. Paroxysmal atrial fibrillation 5. Diabetes mellitus 7. Hypothyroidism 8. Dyslipidemia 9. BPH 10. Depression 11. Tobacco abuse 12. Iron deficiency anemia COMPLICATIONS/CHIEF COMPLAINT: Acute Blood Loss Anemia. HISTORY OF PRESENT ILLNESS: Patient is a 69-year-old gentleman who was sent in by his home care nurse to be evaluated for low hemoglobin. The home care nurse had visited him. Patient was feeling dizzy, weak, and off balance. He is having dyspnea. He looked pale. He's been having dark stools for 1 week. He came to the ED to discover that he has hemoglobin of 5.6. His bowel movements were very melanotic. HOSPITAL COURSE: During his hospitalization, he was transfused with 3 units of b lood, of which he responded appropriately. He was kept nothing by mouth with twice a day IV Protonix. Aspirin and Eliquis were held. He went to surgery on 04/01/2020. During the EGD he was found to have an angioma ectasia which was clipped. He was also found to have suspicious looking esophagus. This was biopsied for concern for Abbott's esophagus. Today when I saw him, he already tolerated a solid diet. He denied any fever or chills, lightheadedness or dizziness, chest pain, dyspnea, abdominal pain, or dysuria. He felt well, and ready for home. GI had recommended that he doesn't start his anticoagulant for 5 days. DISCHARGE MEDICATIONS: Please see below. ALLERGIES: Please see below. PHYSICAL EXAMINATION ON DISCHARGE: VITAL SIGNS: Please see below. GENERAL: Comfortable, in no apparent distress. HEENT: Head normocephalic/atraumatic, EOMI, sclera clear. NECK: Supple RESPIRATORY: Lungs clear to auscultation bilaterally, no rales, wheeze or rhonchi. CARDIOVASCULAR: Regular rate and rhythm. ABDOMEN: Soft, nontender, no guarding or rebound tenderness. Normal bowel sounds. MUSCLE SKELETAL: Muscle strength 5/5 in all extremities. NEUROLOGICAL: CN 312 grossly intact, no focal deficits noted. PSYCHOLOGICAL: Normal mood and affect LABORATORY DATA: Please see below. PROGNOSIS: Stable ACTIVITY: As tolerated. DIET: Carbohydrate consistent DISCHARGE PLAN: Home DISPOSITION: 01 Home, Self-Care. DISCHARGE INSTRUCTIONS: 1. Follow-up with the PCP within one week 2. Follow with GI in 1-2 weeks. 3. Do not start anticoagulation until day 5 from surgery. ITEMS TO FOLLOWUP ON ON OUTPATIENT: 1. Pathology report from EGD biopsy. DISCHARGE CONDITION: Stable Total time spent on discharge planning, discharge summary, and med reconciliation 45 minutes Vital Signs/I&Os Vital Signs Date Time Temp Pulse Resp B/P (MAP) Pulse Ox O2 Delivery O2 Flow Rate FiO2 04/02/20 09:54 70 04/02/20 09:53 170/82 04/02/20 08:00 97.8 18 95 Room Air I&O- Last 24 Hours up to 6 AM 04/02/20 06:00 Intake Total 900 ml Output Total 1250 ml Balance -350 ml Laboratory Data Labs 24H Laboratory Tests 2 04/01/20 20:42: Bedside Glucose (Misc Panel) 176H 04/02/20 08:50: Bedside Glucose (Misc Panel) 226H 04/02/20 09:12: Nucleated Red Blood Cells % (auto) 0.2H, Anion Gap 7L, Glomerular Filtration Rate > 60.0, Calcium Level 8.6L 04/02/20 12:16: Bedside Glucose (Misc Panel) 176H CBC/BMP Laboratory Tests 04/02/20 09:12 FSBS Laboratory Tests Test 04/01/20 20:42 04/02/20 08:50 04/02/20 12:16 Range/Units Bedside Glucose (Misc Panel) 176 226 176 80-115 MG/DL Microbiology Microbiology 03/31/20 Stool Occult Blood (BRIAN) - Final, Complete 03/31/20 Blood Culture - Preliminary, Resulted No Growth after 48 hours. All Specime... Discharge Medications Scheduled Acamprosate Calcium (Acamprosate Calcium) 333 Mg Tablet.dr, 666 MG PO TID, (Reported) Amlodipine Besylate (Amlodipine Besylate) 5 Mg Tablet, 7.5 MG PO DAILY, (Reported) Apixaban (Eliquis) 5 Mg Tablet, 5 MG PO BID, (Reported) Aspirin (Aspirin EC) 81 Mg Tab, 81 MG PO DAILY, (Reported) Atorvastatin Calcium (Atorvastatin Calcium) 80 Mg Tablet, 40 MG PO DAILY, (Reported) Budesonide/Formoterol (Symbicort 160-4.5 Mcg Inhaler) 6 Gm Hfa.aer.ad, 2 PUFF INH BID, (Reported) Cholecalciferol (Vitamin D3) (Vitamin D3) 1,000 Unit Tablet, 2,000 UNITS PO DAILY, (Reported) Cyanocobalamin (Vitamin B-12) (Vitamin B-12) 1,000 Mcg Tablet, 1,000 MCG PO DAILY, (Reported) Duloxetine Hcl (Duloxetine HCl) 20 Mg Capsule.dr, 40 MG PO DAILY, (Reported) Ferrous Gluconate (Ferrous Gluconate) 324 Mg Tablet, 324 MG PO Q48H Finasteride (Finasteride) 5 Mg Tab, 5 MG PO DAILY, (Reported) Folic Acid (Folic Acid) 1 Mg Tab, 1 MG PO DAILY, (Reported) Insulin Glargine,Hum.rec.anlog (Lantus Solostar) 100 Unit/1 Ml Insuln.pen, 24 UNITS SC DAILY, (Reported) Insulin Human Lispro (Humalog) 100 Unit/1 Ml Vial, 1 DOSE SC AC, (Reported) PER SLIDING SCALE Levothyroxine Sodium (Levothyroxine Sodium) 25 Mcg Tab, 25 MCG PO DAILY, (Reported) Lisinopril (Lisinopril) 40 Mg Tablet, 20 MG PO DAILY, (Reported) Melatonin (Melatonin) 3 Mg Tablet, 3 MG PO QHS, (Reported) Multivitamins (Thera M Plus Tablet) 1 Tab Tab, 1 TAB PO DAILY, (Reported) Omeprazole (Omeprazole) 40 Mg Capsule.dr, 40 MG PO BID, (Reported) Pregabalin (Lyrica) 300 Mg Capsule, 300 MG PO BID, (Reported) Sod Phos Di, Blanco/K Phos Blanco (K-Phos Neutral Tablet) 1 Tab Tab, 1 TAB PO DAILY, (Reported) Tamsulosin HCl (Flomax) 0.4 Mg Cap, 0.4 MG PO DAILY, (Reported) Thiamine HCl (Vitamin B-1) 50 Mg Tablet, 50 MG PO DAILY, (Reported) Vitamin B Complex (Vitamin B Complex) 1 Each Tablet, 1 TAB PO DAILY, (Reported) Scheduled PRN Acetaminophen (Acetaminophen) 500 Mg Tablet, 1,000 MG PO Q6H PRN for PAIN, (Reported) Cadexomer Iodine (Iodosorb) 40 Gm Gel..gram., 1 APLCT TOP DAILY PRN for WOUND CARE, (Reported) Glucagon,Human Recombinant (Glucagon Emergency Kit) 1 Mg Vial, 1 MG IM PRN PRN for LOW BLOOD SUGAR, (Reported) Nicotine (Nicotine Patch) 21 Mg/24 Hr Patch.td24, 21 MG TD DAILY PRN for SMOKING CESSATION, (Reported) Nicotine Polacrilex (Nicotine Gum) 4 Mg Gum, 4 MG MT PRN PRN for NICOTINE WITHDRAWAL, (Reported) Zolpidem Tartrate (Zolpidem Tartrate) 10 Mg Tablet, 10 MG PO QHS PRN for SLEEP, (Reported) Allergies Coded Allergies: No Known Allergies (Unverified , 02/25/19) REBECCA MURO DO Apr 02, 2020 20:22
== END 2020-04-02 13:53 | disposition home or self-care (01) | DRG 813 ==
LOC: M ED 16:42 → M ED INP 19:33 → ENRESERV 20:33 → M PCU 03-31 01:50
PROVIDERS: ADMIT Internal Medicine; ATTEND Internal Medicine
PROC: 0W3P8ZZ Control Bleeding in Gastrointestinal Tract, Via Natural or Artificial Opening Endoscopic (ICD-10-PCS; principal; 2020-04-01 15:00)
DX: D68.32 Hemorrhagic disorder due to extrinsic circulating anticoagulants (principal); D62 Acute posthemorrhagic anemia; K92.2 Gastrointestinal hemorrhage, unspecified; I48.0 Paroxysmal atrial fibrillation; K57.90 Diverticulosis of intestine, part unspecified, without perforation or abscess without bleeding; K64.8 Other hemorrhoids; E11.40 Type 2 diabetes mellitus with diabetic neuropathy, unspecified; E03.9 Hypothyroidism, unspecified; I10 Essential (primary) hypertension; E78.5 Hyperlipidemia, unspecified; N40.0 Benign prostatic hyperplasia without lower urinary tract symptoms; K22.70 Barrett's esophagus without dysplasia; I35.8 Other nonrheumatic aortic valve disorders; F17.200 Nicotine dependence, unspecified, uncomplicated; K29.80 Duodenitis without bleeding; F10.10 Alcohol abuse, uncomplicated; Z79.01 Long term (current) use of anticoagulants; Z79.82 Long term (current) use of aspirin; Z79.4 Long term (current) use of insulin; Z79.899 Other long term (current) drug therapy; I95.9 Hypotension, unspecified; K31.819 Angiodysplasia of stomach and duodenum without bleeding

== ENCOUNTER 2020-05-14 09:17 | Observation (INO) | payer OTHER, MEDICARE, BC ==
[~2020-05-14] VITALS: Ht 180.3 cm; Wt 85.5 kg
[~2020-05-14 09:17] MED LIST changes: +AUGM500T34 PO; +DULO1CAP4 PO; +FERR32TA PO; +IODOGEL TOP; +MELA3TAB7 PO; +OMEP-221 PO
[2020-05-14 10:03] LABS: BASO # 0.1 10^3/uL (0.0-0.2); BASO % 0.7 % (0.0-1.0); EOS # 0.8 10^3/uL (0.0-0.5); HEMATOCRIT 26.3 % (42.0-52.0); HEMOGLOBIN 7.4 g/dl (13.5-17.5); LYMPH % 13.1 % (24.0-44.0); MEAN CORPUSCULAR HEMOGLOBIN 22.8 pg (27.0-33.0); MEAN CORPUSCULAR HGB CONC 28.1 g/dl (32.0-36.5); MEAN CORPUSCULAR VOLUME 80.9 fl (80.0-96.0); MONO # 1.1 10^3/uL (0.0-0.8); MONO % 7.4 % (0.0-5.0); NEUTROPHILS # 11.1 10^3/uL (1.5-8.5); NEUTROPHILS % 73.2 % (36.0-66.0); PLATELET COUNT, AUTOMATED 449 10^3/uL (150-450); RED BLOOD COUNT 3.25 10^6/uL (4.30-6.10); WHITE BLOOD COUNT 15.1 10^3/uL (4.0-10.0)
[2020-05-14 10:14] LABS: INR 1.28; PROTHROMBIN TIME 16.3 SECONDS (12.5-14.3)
[2020-05-14 10:15] LABS: PARTIAL THROMBOPLASTIN TIME 28.8 SECONDS (24.2-38.5)
[2020-05-14 10:20] LABS: HEMOGLOBIN A1c 6.8 %
[2020-05-14 10:36] LABS: ALBUMIN 3.1 GM/DL (3.2-5.2); ALT/SGPT 21 U/L (12-78); BILIRUBIN,DIRECT 0.2 MG/DL (0.0-0.2); BILIRUBIN,TOTAL 0.5 MG/DL (0.2-1.0); BLOOD UREA NITROGEN 15 MG/DL (7-18); CALCIUM LEVEL 8.7 MG/DL (8.8-10.2); CARBON DIOXIDE LEVEL 25 MEQ/L (21-32); CHLORIDE LEVEL 105 MEQ/L (98-107); CK-MB VALUE MASS 1.3 NG/ML (<3.6); CPK CREATINE PHOSPHOKINASE 31 U/L (39-308); CREATININE FOR GFR 1.06 MG/DL (0.70-1.30); ETHYL ALCOHOL (ETHANOL) < 0.003 % (0.000-0.010); GLOMERULAR FILTRATION RATE > 60.0 (>49); GLUCOSE, FASTING 247 MG/DL (70-100); LIPASE 59 U/L (73-393); MB/CK RELATIVE INDEX 4.19 (< OR =4); POTASSIUM SERUM 3.9 MEQ/L (3.5-5.1); SODIUM LEVEL 138 MEQ/L (136-145); TOTAL PROTEIN 6.5 GM/DL (6.4-8.2); TROPONIN I < 0.02 NG/ML (< 0.10)
[2020-05-14] MEDS ORDERED: GLUCOSE 4GM CHEW TABLET PO PRN (11:45)
[2020-05-14] MEDS ORDERED: OMEP-218 PO (11:45)
[2020-05-14] MEDS ORDERED: GLUCAGON INJ 1MG VIAL SC PRN (11:45)
[2020-05-14] MEDS ORDERED: LORazepam 2 MG TAB PO PRN (11:45)
[2020-05-14] MEDS ORDERED: DEXTROSE 50% 50 ML SYRINGE IV PRN (11:45)
[2020-05-14] MEDS ORDERED: ACETAMINOPHEN TAB 650MG DOSE (2X325MG) PO PRN (11:45)
[2020-05-14] MEDS ORDERED: PILL CUTTER 1 EACH XX PRN (12:00)
[2020-05-14] MEDS ORDERED: NICOTINE POLACRILEX 2 MG GUM PO PRN (12:00)
[2020-05-14 12:21] LABS: HEMOGLOBIN 7.9 g/dl (13.5-17.5)
--- NOTE | 2020-05-14 12:44 | HPEPDOC ---
[facility] Medical History & Physical Date of Admission May 14, 2020 Date of Service: May 14, 2020 Attending Physician: JESSA MUÑOZ MD History and Physical CHIEF COMPLAINT: Patients sister said he "looks anemic" HISTORY OF PRESENT ILLNESS: Patient is a 69 year old male with a past medical history significant for atrial fibrillation on chronic eliquis, alcohol abuse, and recent GI bleed with colonoscopy in 04/2020 demonstrating duodenal vascular ectasia and diverticulosis who presented to the [facility] ER after his girlfriend had stated that he looked anemic. Patient stated that he was feeling constipated the other day and had taken miralax. After doing so he had a large watery bowel movement. He denied any blood in his stool. He denied dark tarry stools. He states that he feels fine and denies any chest pain or shortness of breath. Patients sister had come to see him and stated that he looked anemic and called an ambulance. Patient states that he does not feel like he did the last time he was anemic On presentation to the ER the patient was vitally stable. His hemoglobin was 7.4 which was slightly decreased from his baseline of 8.7. In the ER General Surgery was contacted with recommendations to have patient follow-up outpatient for re- evaluation if hemoglobin remains stable. Hospitalist service was consulted and the patient was admitted for further evaluation and management PAST MEDICAL HISTORY: 1. Chronic Atrial Fibrillation on Atrial Fibrillation 2. Hyperlipidemia 3. Diabetes Mellitus Type 2 4. Hypothyroidism 5. BPH 6. Depressive Disorder 7. Chronic Alcohol abuse 8. Tobacco Abuse 9. Hypertension PAST SURGICAL HISTORY: 1. Upper Endoscopy 03/2020 2. Laparoscopic Repair of GI Ulcer with perforation 3. Melanoma Excision of Right ear SOCIAL HISTORY: Patient lives at home alone. He is a current smoker. He smokes about 1 ppd. He has been smoking for close to 50 years. He drinks alcohol on a daily basis. States he drinks 1-2 pints of kalie a day FAMILY HISTORY: Mother and father with history of DMII ALLERGIES: Please see below. REVIEW OF SYSTEMS: CONSTITUTIONAL: Denies fevers, chills, unintentional weight loss. Denies night sweats HEENT: Denies headache. Denies pain on swallowing. Denies difficulty swallowing CARDIOVASCULAR: Denies chest pain. Denies palpitations or feelings of the heart racing RESPIRATORY: Denies shortness of breath. Denies cough. Denies wheeze GASTROINTESTINAL: Admits to recent constipation but previous loose stool. Denies abdominal pain. Denies nausea or vomiting. Denies bloody stools or dark tarry stools GENITOURINARY: Denies difficulty with urination. Denies dysuria or increased frequency SKIN: Denies rashes or lesions MUSCULOSKELETAL: Denies muscle weakness NEUROLOGICAL: Denies changes in speech or gait PSYCHIATRIC: Admits to history of depression ENDOCRINE: Denies heat intolerance or cold intolerance. Admits to diabetes mellitus type 2 HEMATOLOGIC/LYMPHATIC: Admits to history of GI bleed. Denies history of PE of DVT HOME MEDICATIONS: Please see below. PHYSICAL EXAMINATION: VITAL SIGNS: Temperature 98.0, pulse 94, respiratory rate 22, blood pressure 151/76, pulse oximetry 98% on room air. GENERAL APPEARANCE: Patient is awake, alert, and oriented. Appears in no acute distress. Lying comfortably in stretcher HEENT: Atraumatic, normocephalic. Eyes are nonicteric. Trachea is midline. No conjunctival pallor CARDIOVASCULAR: Normal S1. S2. Regular rate with an irregularly irregular rhythm. 2/6 systolic ejection murmur LUNGS: Clear vesicular breath sounds. No wheezes, rhonchi or rales ABDOMEN: Soft, nondistended. Nontender. Normoactive bowel sounds throughout EXTREMITIES: No edema. Right second toe amputation. 2+ Posterior tibial pulses bilaterally NEUROLOGICAL: No focal neurological deficits PSYCHIATRIC: Mood and affect appear appropriate LABORATORY DATA: See below. MICROBIOLOGY: Please see below. ASSESSMENT: Patient is a 69 year old male with a past medical history significant for chronic atrial fibrillation on eliquis, recent upper GI bleed 2/2 duodenal vascular ectasia and diverticulosis, and chronic alcohol abuse who presented to the [facility] ER after the patients sister had told him that he looked anemic. . PLAN: 1. Acute blood loss Anemia 2/2 likely GI bleed in setting of chronic anti coagulation -Patient was constipated yesterday. He took miralax and had a loose bowel movement after. He denies any dark tarry stools or bloody stools. He presented after his sister had stated that he looked anemic. He is asymptomatic with no complaints currently -Hgb of 7.4. Previous Hgb on 04/02/2020 was 8.7 -Patient had upper endoscopy completed in March which demonstrated duodenal vascular ectasia. This was clipped at the time. Additionally, diverticulosis was noted as well. Case was discussed with General Surgery. The likely source of his bleed is diverticulosis and is likely chronic. He is on anticoagulation for atrial fibrillation which is contributing. No urgent need for endoscopy. Surgical recommendations to follow-up outpatient for upper and lower endoscopy -Will trend Hgb q6h -Transfuse 2 units PRBCs now -Stop Eliquis -Continue Aspirin -Will need to follow-up outpatient on discharge for upper and lower endoscopy -Clear liquids diet for now 2. Chronic Atrial Fibrillation -Currently rate controlled. Holding eliquis given his anemia. This is his third episode of GI bleed. Will continue the patient on ASA. He should remain off Eliquis until he receives a colonoscopy and upper endoscopy to confirm etiology of his bleed -Risks and benefits of holding anticoagulation were had with patient - he has verbalized understanding 3. Chronic Alcoholism -CIWA protocol with PRN Ativan -Folic acid, multivitamin, Thiamine 4. Diabetes Mellitus Type 2 w/ neuropathy -Sliding scale coverage with ACHS coverage -Continue lyrica 5. Hyperlipidemia -Continue atorvastatin 6. COPD -Stable. Continue home inhalers 7. BPH -Continue finasteride and flomax 8. Depression -Continue Cymbalta 9. GERD -Prilosec 20 mg daily 10 HTN -Continue home lisinopril and amlodipine 11. Tobacco abuse -Nicorette prn withdraw 12. DVT Prophylaxis -TEDs and sequentials Disposition: Patient likely to be discharged in 24 hours with outpatient follow-up with GI and PCP Vital Signs Vital Signs Date Time Temp Pulse Resp B/P (MAP) Pulse Ox O2 Delivery O2 Flow Rate FiO2 05/14/20 09:22 98.0 94 22 151/76 98 Room Air Laboratory Data Labs 24H Laboratory Tests 2 05/14/20 09:45: Immature Granulocyte % (Auto) 0.6, Neutrophils (%) (Auto) 73.2H, Lymphocytes (%) (Auto) 13.1L, Monocytes (%) (Auto) 7.4H, Eosinophils (%) (Auto) 5.0H, Basophils (%) (Auto) 0.7, Neutrophils # (Auto) 11.1H, Lymphocytes # (Auto) 2.0, Monocytes # (Auto) 1.1H, Eosinophils # (Auto) 0.8H, Basophils # (Auto) 0.1, Nucleated Red Blood Cells % (auto) 0.0, Prothrombin Time 16.3H, Prothromb Time International Ratio 1.28, Activated Partial Thromboplast Time 28.8, Anion Gap 8, Glomerular Filtration Rate > 60.0, Calcium Level 8.7L, Total Bilirubin 0.5, Direct Bilirubin 0.2, Aspartate Amino Transf (AST/SGOT) 18, Alanine Aminotransferase (ALT/SGPT) 21, Alkaline Phosphatase 156H, Total Creatine Kinase 31L, Creatine Kinase MB 1.3, Creatine Kinase MB Relative Index 4.19H, Troponin I < 0.02, Total Protein 6.5, Albumin 3.1L, Albumin/Globulin Ratio 0.9, Lipase 59L, Ethyl Alcohol Level < 0.003 05/14/20 09:46: Estimated Mean Plasma Glucose 148H, Hemoglobin A1c 6.8 CBC/BMP Laboratory Tests 05/14/20 09:45 Home Medications Scheduled Acamprosate Calcium (Acamprosate Calcium) 333 Mg Tablet.dr, 666 MG PO TID Amlodipine Besylate (Amlodipine Besylate) 5 Mg Tablet, 7.5 MG PO DAILY Apixaban (Eliquis) 5 Mg Tablet, 5 MG PO BID Aspirin (Aspirin EC) 81 Mg Tab, 81 MG PO DAILY Atorvastatin Calcium (Atorvastatin Calcium) 80 Mg Tablet, 40 MG PO DAILY Budesonide/Formoterol (Symbicort 160-4.5 Mcg Inhaler) 6 Gm Hfa.aer.ad, 2 PUFF INH BID Cholecalciferol (Vitamin D3) (Vitamin D3) 1,000 Unit Tablet, 2,000 UNITS PO DAILY Cyanocobalamin (Vitamin B-12) (Vitamin B-12) 1,000 Mcg Tablet, 1,000 MCG PO DAILY Duloxetine Hcl (Duloxetine HCl) 20 Mg Capsule.dr, 40 MG PO DAILY Finasteride (Finasteride) 5 Mg Tab, 5 MG PO DAILY Folic Acid (Folic Acid) 1 Mg Tab, 1 MG PO DAILY Insulin Glargine,Hum.rec.anlog (Lantus Solostar) 100 Unit/1 Ml Insuln.pen, 24 UNITS SC DAILY Insulin Human Lispro (Humalog) 100 Unit/1 Ml Vial, 1 DOSE SC AC PER SLIDING SCALE Levothyroxine Sodium (Levothyroxine Sodium) 25 Mcg Tab, 25 MCG PO DAILY Lisinopril (Lisinopril) 40 Mg Tablet, 20 MG PO DAILY Melatonin (Melatonin) 3 Mg Tablet, 3 MG PO QHS Multivitamins (Thera M Plus Tablet) 1 Tab Tab, 1 TAB PO DAILY Omeprazole (Omeprazole) 20 Mg Capsule.dr, 20 MG PO BID Pregabalin (Lyrica) 300 Mg Capsule, 300 MG PO BID Sod Phos Di, [place]/K Phos [place] (K-Phos Neutral Tablet) 1 Tab Tab, 1 TAB PO DAILY Tamsulosin HCl (Flomax) 0.4 Mg Cap, 0.4 MG PO DAILY Thiamine HCl (Vitamin B-1) 50 Mg Tablet, 50 MG PO DAILY Vitamin B Complex (Vitamin B Complex) 1 Each Tablet, 1 TAB PO DAILY Scheduled PRN Acetaminophen (Acetaminophen) 500 Mg Tablet, 1,000 MG PO Q6H PRN for PAIN Glucagon,Human Recombinant (Glucagon Emergency Kit) 1 Mg Vial, 1 MG IM PRN PRN for LOW BLOOD SUGAR Nicotine Polacrilex (Nicotine Gum) 4 Mg Gum, 4 MG MT Q2H PRN for NICOTINE WITHDRAWAL Allergies Coded Allergies: No Known Allergies (Unverified , 02/25/19) A-FIB/CHADSVASC A-FIB History Current/History of A-Fib/PAF?: Yes Current PO Anticoag Therapy: No Age/Risk Factor Scoring CHADSVASC: CHADSVASC Response (Comments) Value Age Risk Factor Age 65-74 years old 1 Gender Risk Factor Male 0 Hx of CHF No 0 Hx of HTN Yes 1 Hx of Stroke/TIA/or VTE No 0 Hx of Diabetes Yes 1 Hx of Vascular Disease No 0 Total 3 Treatment Treatment ordered: NONE Reason Anticoagulant not given: Current bleeding GME ATTESTATION GME ATTESTATION My faculty preceptor for this patient encounter was physically present during the encounter and was fully available. All aspects of the patient interview, examination, medical decision making process, and medical care plan development were reviewed and approved by the faculty preceptor. The faculty preceptor is aware and concurs with the plan as stated in the body of this note and will attest to such by his/her cosignature. ATTENDING NOTE I, Jessa Muñoz, have independently examined this patient and performed my own physical exam, as well as reviewed the documentation and edited where necessary. I have discussed in detail with the resident / student the findings and plan of treatment as documented by the resident / student and edited their note. I agree with their findings and treatment plan and have edited their documentation. I will continue to follow the patient during this hospital stay. OUMAR CHAVEZ DO May 14, 2020 12:44 JESSA MUÑOZ MD May 14, 2020 13:05
[2020-05-14] MEDS: ACAMPROSATE CALCIUM 333 MG TABLET (CAMPRAL) PO SCH ×3 (14:23→21:15)
[2020-05-14] MEDS: PREGABALIN 100 MG CAP (LYRICA) PO SCH ×2 (14:32→22:52)
[2020-05-14] MEDS: VITAMIN D 1,000 INTERNATIONAL UNITS TABLET PO SCH (14:32)
[2020-05-14] MEDS: ATORVASTATIN 20 MG TAB PO SCH (14:32)
[2020-05-14] MEDS: DULoxetine 20 MG CAP (CYMBALTA) PO SCH (14:32)
[2020-05-14] MEDS: TAMSULOSIN 0.4 MG CAP PO SCH (14:32)
[2020-05-14] MEDS: ASPIRIN 81 MG ENTERIC TAB PO SCH (14:32)
[2020-05-14] MEDS: OMEPRAZOLE 20 MG CAP PO SCH ×2 (14:32→22:51)
[2020-05-14] MEDS: amLODIPine 5 MG TAB PO SCH (14:33)
[2020-05-14] MEDS: FINASTERIDE 5 MG TAB PO SCH (14:33)
[2020-05-14] MEDS: lisinopriL 20 MG TAB PO SCH (14:33)
[2020-05-14] MEDS: HumaLOG INSULIN (NovoLOG) PER UNIT SC SCH ×2 (14:34→17:30)
[2020-05-14] MEDS: THIAMINE 100 MG TAB PO SCH ×2 (14:35→22:52)
[2020-05-14] MEDS: SYMBICORT 160/4.5MCG INHALER 6GM INH SCH ×2 (14:47→20:34)
--- NOTE | 2020-05-14 17:03 | ECGEPIP ---
[facility] - ED Test Date: 2020-05-14 Pat Name: CATALINA YEUNG Department: Room: - Gender: Male Fundraising Manager: : [id number] Requested By: Sherwin Altamirano Order Number: [id number] Reading MD: Cassandar Quevedo Measurements Intervals [place] Rate: 75 P: 55 DE: 196 QRS: 3 QRSD: 100 T: 70 QT: 386 QTc: 433 Interpretive Statements SINUS RHYTHM WITH SINUS ARRHYTHMIA DECREASED RATE 02/16/20 Electronically Signed on 05-14-2020 17:03:06 EST by Cassandra Quevedo
[2020-05-14 18:36] LABS: HEMATOCRIT 25.6 % (42.0-52.0); HEMOGLOBIN 7.4 g/dl (13.5-17.5)
[2020-05-14] MEDS ORDERED: RAMELTEON 8 MG TAB (ROZEREM) PO PRN (21:00)
[2020-05-14] MEDS ORDERED: HumaLOG INSULIN (NovoLOG) PER UNIT SC SCH (21:00)
[2020-05-14 22:00] VITALS: BP_SYST 140; BP_DIAS 50; BP_DIAS 58
[2020-05-14 23:33] VITALS: BP 119/56
[2020-05-14 23:52] VITALS: BP 126/59
[2020-05-15] VITALS (11 sets, daily range): BP systolic 111–138; BP diastolic 54–86
[2020-05-15 05:36] LABS: HEMATOCRIT 33.8 % (42.0-52.0); MEAN CORPUSCULAR HEMOGLOBIN 24.5 pg (27.0-33.0); MEAN CORPUSCULAR HGB CONC 29.9 g/dl (32.0-36.5); MEAN CORPUSCULAR VOLUME 81.8 fl (80.0-96.0); PLATELET COUNT, AUTOMATED 448 10^3/uL (150-450); RED BLOOD COUNT 4.13 10^6/uL (4.30-6.10); WHITE BLOOD COUNT 11.9 10^3/uL (4.0-10.0)
[2020-05-15 05:39] LABS: BLOOD UREA NITROGEN 16 MG/DL (7-18); CALCIUM LEVEL 7.9 MG/DL (8.8-10.2); CARBON DIOXIDE LEVEL 25 MEQ/L (21-32); CHLORIDE LEVEL 108 MEQ/L (98-107); CREATININE FOR GFR 0.84 MG/DL (0.70-1.30); GLOMERULAR FILTRATION RATE > 60.0 (>49); GLUCOSE, FASTING 153 MG/DL (70-100); POTASSIUM SERUM 4.2 MEQ/L (3.5-5.1); SODIUM LEVEL 139 MEQ/L (136-145)
[2020-05-15 05:40] LABS: HEMOGLOBIN 10.1 g/dl (13.5-17.5)
[2020-05-15] MEDS ORDERED: LEVOTHYROXINE 25MCG TABLET (0.025MG) PO SCH (06:00)
[2020-05-15] MEDS: SYMBICORT 160/4.5MCG INHALER 6GM INH SCH (08:17)
[2020-05-15] MEDS: HumaLOG INSULIN (NovoLOG) PER UNIT SC SCH ×2 (08:30→11:43)
[2020-05-15] MEDS: PREGABALIN 100 MG CAP (LYRICA) PO SCH (08:31)
[2020-05-15] MEDS: THIAMINE 100 MG TAB PO SCH (08:31)
[2020-05-15] MEDS: OMEPRAZOLE 20 MG CAP PO SCH (08:32)
[2020-05-15] MEDS: ASPIRIN 81 MG ENTERIC TAB PO SCH (08:32)
[2020-05-15] MEDS: lisinopriL 20 MG TAB PO SCH (08:32)
[2020-05-15] MEDS: amLODIPine 5 MG TAB PO SCH (08:33)
[2020-05-15] MEDS: VITAMIN D 1,000 INTERNATIONAL UNITS TABLET PO SCH (08:33)
[2020-05-15] MEDS: DULoxetine 20 MG CAP (CYMBALTA) PO SCH (08:33)
[2020-05-15] MEDS: TAMSULOSIN 0.4 MG CAP PO SCH (08:34)
[2020-05-15] MEDS: ATORVASTATIN 20 MG TAB PO SCH (08:34)
[2020-05-15] MEDS: ACAMPROSATE CALCIUM 333 MG TABLET (CAMPRAL) PO SCH (08:34)
[2020-05-15] MEDS: FINASTERIDE 5 MG TAB PO SCH (08:34)
[2020-05-15] MEDS ORDERED: MULTIVITAMINS/MINERALS THERAP 1 TAB PO SCH (09:00)
[2020-05-15] MEDS ORDERED: FOLIC ACID 1 MG TAB PO SCH (09:00)
--- NOTE | 2020-05-15 09:44 | DS.PDOC ---
Discharge Summary General Date of Admission May 14, 2020 at 11:29 Date of Discharge 05/15/2020 Discharge Summary PROCEDURES PERFORMED DURING STAY: [None]. ADMITTING DIAGNOSES / DISCHARGE DIAGNOSES: Anemia 2/2 possibly 2/2 slow GI bleed in setting of chronic anticoagulation Chronic Atrial Fibrillation Chronic Alcoholism DM2 w/ neuropathy DLP Chronic COPD BPH Depression HTN Tobacco abuse GERD DVT Prophylaxis COMPLICATIONS/CHIEF COMPLAINT: Sister reported that he looked anemic HISTORY OF PRESENT ILLNESS: Patient is a 69 year old male with a past medical history significant for atrial fibrillation on chronic eliquis, alcohol abuse, and recent GI bleed with colonoscopy in 04/2020 demonstrating duodenal vascular ectasia and diverticulosis who presented to the [facility] ER after his girlfriend had stated that he looked anemic. Patient stated that he was feeling constipated the other day and had taken Miralax. After doing so he had a large watery bowel movement. He denied any blood in his stool. He denied dark tarry stools. On admission he stated that he feels fine and denies any chest pain or shortness of breath. Patients sister had come to see him and stated that he looked anemic and called an ambulance. Patient states that he does not feel like he did the last time he was anemic On presentation to the ER the patient was vitally stable. His hemoglobin was 7.4 which was slightly decreased from his baseline of 8.7. In the ER General Surgery was contacted with recommendations to have patient follow-up outpatient for re-evaluation if hemoglobin remains stable. Hospitalist service was consulted and the patient was admitted for further evaluation and management Patient was seen and examined at the bedside today. Patient again reports that he feels completely fine. He denies any chest pain, shortness of breath or palpitations. Denies any lightheadedness or dizziness. Denies any bloody stools. HOSPITAL COURSE: Anemia 2/2 possibly 2/2 slow GI bleed in setting of chronic anticoagulation - Patient is currently asymptomatic; denies any CP, SOB or palpitations - Hg has improved appropriately after 2 units PRBC transfusion - Hg remains stable - EGD 04/05: Demonstrated duodenal vascular ectasia. This was clipped at the time - Discussed with general surgery; likely a chronic slow bleed that will likely require push enteroscopy or pill endoscopy with GI - Will have outpatient follow up with PCP and Dr. Huizar within 7 days - Patient has been advised to discontinue Eliquis (Discussed risks / benefits - see below) - Will have outpatient follow of lab work on 05/17/2020 Chronic Atrial Fibrillation - Patient is currently rate controlled - Not on rate / rhythm control - Eliquis will be held; Risks and benefits of holding anticoagulation were had with patient, including the risk of stroke - he has verbalized understanding - Will continue ASA - Patient has been advised to follow up with PCP and script for repeat CBC has been provided to the patient within 3 days Chronic Alcoholism - Currently on CIWA protocol with PRN Ativan - c/w Folic acid, multivitamin, Thiamine DM2 w/ neuropathy - c/w ISS and Pregabalin DLP - c/w Atorvastatin Chronic COPD - No evidence of exacerbation - c/w inhaled therapy as ordered BPH - c/w finasteride and flomax Depression - c/w Cymbalta HTN - c/w Lisinopril / Amlodipine Tobacco abuse - c/w Nicorette GERD - c/w Prilosec DVT Prophylaxis - c/w TEDs and sequentials DISCHARGE MEDICATIONS: Please see below. ALLERGIES: Please see below. PHYSICAL EXAMINATION ON DISCHARGE: Vitals (See below) General: Lying in bed, appears comfortable, AAOx3 HEENT: NC, AT CVS: +S1S2 Lungs: Fair air entry b/l, no appreciable wheezing / rhonchi / rales Abdomen: Soft, ND, NT Extremities: No evidence of edema, - Calf tenderness LABORATORY DATA: Please see below. ACTIVITY: [As tolerated]. DISCHARGE PLAN: Follow up with PCP (Ger Mckeon) and Dr. Huizar within 7 days Remain compliant with treatment plan and medications Return to the ER if you experience any problems DISPOSITION: Home DISCHARGE CONDITION: [Stable]. TIME SPENT ON DISCHARGE: 25 minutes. Vital Signs/I&Os Vital Signs Date Time Temp Pulse Resp B/P (MAP) Pulse Ox O2 Delivery O2 Flow Rate FiO2 05/15/20 08:33 72 138/86 05/15/20 08:00 97.6 16 94 Room Air 05/14/20 17:21 2.0 I&O- Last 24 Hours up to 6 AM 05/15/20 06:00 Intake Total 694 ml Output Total 0 ml Balance 694 ml Laboratory Data Labs 24H Laboratory Tests 2 05/14/20 09:45: Immature Granulocyte % (Auto) 0.6, Neutrophils (%) (Auto) 73.2H, Lymphocytes (%) (Auto) 13.1L, Monocytes (%) (Auto) 7.4H, Eosinophils (%) (Auto) 5.0H, Basophils (%) (Auto) 0.7, Neutrophils # (Auto) 11.1H, Lymphocytes # (Auto) 2.0, Monocytes # (Auto) 1.1H, Eosinophils # (Auto) 0.8H, Basophils # (Auto) 0.1, Nucleated Red Blood Cells % (auto) 0.0, Prothrombin Time 16.3H, Prothromb Time International Ratio 1.28, Activated Partial Thromboplast Time 28.8, Anion Gap 8, Glomerular Filtration Rate > 60.0, Calcium Level 8.7L, Total Bilirubin 0.5, Direct Bilirub in 0.2, Aspartate Amino Transf (AST/SGOT) 18, Alanine Aminotransferase (ALT/SGPT) 21, Alkaline Phosphatase 156H, Total Creatine Kinase 31L, Creatine Kinase MB 1.3, Creatine Kinase MB Relative Index 4.19H, Troponin I < 0.02, Total Protein 6.5, Albumin 3.1L, Albumin/Globulin Ratio 0.9, Lipase 59L, Ethyl Alcohol Level < 0.003 05/14/20 09:46: Estimated Mean Plasma Glucose 148H, Hemoglobin A1c 6.8 05/14/20 14:26: Bedside Glucose (Misc Panel) 283H 05/14/20 15:46: Coronavirus (COVID-19)(PCR) NEGATIVE 05/14/20 18:01: Bedside Glucose (Misc Panel) 99 05/14/20 22:37: Bedside Glucose (Misc Panel) 205H 05/15/20 04:45: Nucleated Red Blood Cells % (auto) 0.0, Anion Gap 6L, Glomerular Filtration Rate > 60.0, Calcium Level 7.9L CBC/BMP Laboratory Tests 05/14/20 09:45 05/14/20 11:55 05/14/20 18:26 05/15/20 04:45 FSBS Laboratory Tests Test 05/14/20 14:26 05/14/20 18:01 05/14/20 22:37 Range/Units Bedside Glucose (Misc Panel) 283 99 205 80-115 MG/DL Discharge Medications Scheduled Acamprosate Calcium (Acamprosate Calcium) 333 Mg Tablet.dr, 666 MG PO TID, (Reported) Amlodipine Besylate (Amlodipine Besylate) 5 Mg Tablet, 7.5 MG PO DAILY, (Reported) Apixaban (Eliquis) 5 Mg Tablet, 5 MG PO BID, (Reported) Aspirin (Aspirin EC) 81 Mg Tab, 81 MG PO DAILY, (Reported) Atorvastatin Calcium (Atorvastatin Calcium) 80 Mg Tablet, 40 MG PO DAILY, (Reported) Budesonide/Formoterol (Symbicort 160-4.5 Mcg Inhaler) 6 Gm Hfa.aer.ad, 2 PUFF INH BID, (Reported) Cholecalciferol (Vitamin D3) (Vitamin D3) 1,000 Unit Tablet, 2,000 UNITS PO DAILY, (Reported) Cyanocobalamin (Vitamin B-12) (Vitamin B-12) 1,000 Mcg Tablet, 1,000 MCG PO DAILY, (Reported) Duloxetine Hcl (Duloxetine HCl) 20 Mg Capsule.dr, 40 MG PO DAILY, (Reported) Finasteride (Finasteride) 5 Mg Tab, 5 MG PO DAILY, (Reported) Folic Acid (Folic Acid) 1 Mg Tab, 1 MG PO DAILY, (Reported) Insulin Glargine,Hum.rec.anlog (Lantus Solostar) 100 Unit/1 Ml Insuln.pen, 24 UNITS SC DAILY, (Reported) Insulin Human Lispro (Humalog) 100 Unit/1 Ml Vial, 1 DOSE SC AC, (Reported) PER SLIDING SCALE Levothyroxine Sodium (Levothyroxine Sodium) 25 Mcg Tab, 25 MCG PO DAILY, (Reported) Lisinopril (Lisinopril) 40 Mg Tablet, 20 MG PO DAILY, (Reported) Melatonin (Melatonin) 3 Mg Tablet, 3 MG PO QHS, (Reported) Multivitamins (Thera M Plus Tablet) 1 Tab Tab, 1 TAB PO DAILY, (Reported) Omeprazole (Omeprazole) 20 Mg Capsule.dr, 20 MG PO BID, (Reported) Pregabalin (Lyrica) 300 Mg Capsule, 300 MG PO BID, (Reported) Sod Phos Di, [place]/K Phos [place] (K-Phos Neutral Tablet) 1 Tab Tab, 1 TAB PO DAILY, (Reported) Tamsulosin HCl (Flomax) 0.4 Mg Cap, 0.4 MG PO DAILY, (Reported) Thiamine HCl (Vitamin B-1) 50 Mg Tablet, 50 MG PO DAILY, (Reported) Vitamin B Complex (Vitamin B Complex) 1 Each Tablet, 1 TAB PO DAILY, (Reported) Scheduled PRN Acetaminophen (Acetaminophen) 500 Mg Tablet, 1,000 MG PO Q6H PRN for PAIN, (Reported) Glucagon,Human Recombinant (Glucagon Emergency Kit) 1 Mg Vial, 1 MG IM PRN PRN for LOW BLOOD SUGAR, (Reported) Nicotine Polacrilex (Nicotine Gum) 4 Mg Gum, 4 MG MT Q2H PRN for NICOTINE WITHDRAWAL, (Reported) Allergies Coded Allergies: No Known Allergies (Unverified , 02/25/19) TOM MUÑOZ MD May 15, 2020 09:44
[2020-05-15 10:09] LABS: BASO # 0.1 10^3/uL (0.0-0.2); BASO % 0.7 % (0.0-1.0); EOS # 0.7 10^3/uL (0.0-0.5); EOS % 7.5 % (0.0-3.0); HEMATOCRIT 30.7 % (42.0-52.0); HEMOGLOBIN 8.9 g/dl (13.5-17.5); LYMPH # 1.7 10^3/uL (1.5-5.0); LYMPH % 19.2 % (24.0-44.0); MEAN CORPUSCULAR VOLUME 82.7 fl (80.0-96.0); MONO # 0.7 10^3/uL (0.0-0.8); MONO % 7.4 % (0.0-5.0); NEUTROPHILS # 5.8 10^3/uL (1.5-8.5); NEUTROPHILS % 64.5 % (36.0-66.0); PLATELET COUNT, AUTOMATED 398 10^3/uL (150-450); RED BLOOD COUNT 3.71 10^6/uL (4.30-6.10)
== END 2020-05-15 12:30 | disposition home or self-care (01) ==
LOC: M ED 09:17 → M ED INP 11:29 → ENRESERV 18:37 → M PCU 21:50
PROVIDERS: ADMIT Internal Medicine; ATTEND Internal Medicine
DX: D64.9 Anemia, unspecified (principal); I48.20 Chronic atrial fibrillation, unspecified; E11.40 Type 2 diabetes mellitus with diabetic neuropathy, unspecified; E78.49 Other hyperlipidemia; J44.9 Chronic obstructive pulmonary disease, unspecified; N40.0 Benign prostatic hyperplasia without lower urinary tract symptoms; N32.9 Bladder disorder, unspecified; I10 Essential (primary) hypertension; F17.218 Nicotine dependence, cigarettes, with other nicotine-induced disorders; K21.9 Gastro-esophageal reflux disease without esophagitis; Z79.01 Long term (current) use of anticoagulants; F10.10 Alcohol abuse, uncomplicated; Z79.82 Long term (current) use of aspirin; Z79.899 Other long term (current) drug therapy; Z79.4 Long term (current) use of insulin
CPT/HCPCS: 36415; 36430; 80048; 80076; 82550; 82553; 83036; 83690; 84484; 85014; 85018; 85025; 85027; 85610; 85730; 86850; 86900; 86901; 86920; 93005; 93041; 94640; 94760; 99285; G0378; G0480; P9016; U0002

== ENCOUNTER → 2020-08-11 | Outpatient (CLI) | payer OTHER, MEDICARE ==
[~2020-08-11] MED LIST changes: +ACET-683 PO; +AMLO2.5T3 PO; +INSU100V3 SC; +LACT20EL PO; -LISI-538 PO; +LISI20TA33 PO; -LISI40TA PO; +LISI40TA4 PO; +MAGN400T2 PO; +MULTTAB20 PO; +NICO-256 PO; +OMEP-218 PO; +PROT20TA11 PO
--- NOTE | 2020-08-16 01:48 | ECWPNPC ---
PATIENT NAME: CATALINA YEUNG : 1950 GENDER: MALE VISIT DATE: 08/11/2020 DISCHARGE DATE: 08/11/20 1427 VISIT LOCKED DATE TIME: PHYSICIAN: TATUM PULIDO RESOURCE: TATUM PULIDO REASON FOR APPOINTMENT 1. NECK/BACK HISTORY OF PRESENT ILLNESS DEPRESSION SCREENING: PHQ-2 (2015 EDITION) LITTLE INTEREST OR PLEASURE IN DOING THINGS?NOT AT ALL FEELING DOWN, DEPRESSED, OR HOPELESS?NOT AT ALL TOTAL SCORE0 GENERAL: HERE FOR INITIAL CONSULT PER REFERRAL OF [facility] FOR CHRONIC GENERALIZED BACK PAIN. REPORTS EPISODES OF DISABLING BACK PAIN. TODAY HE IS DOING OKAY. STATES HE HAD INJECTIONS IN HIS LOWER BACK A FEW YEARS AGO AND IT HELPED HIM FOR OVER A YEAR. PATIENT STATES HE SUFFERED FROM BACK PAIN ISSUES FOR SEVERAL YEARS. DENIES PRECIPITATING EVENT. SUFFERS FROM NEUROPATHY OF WHICH HE STATES HE TAKES LYRICA WHICH IS HELPFUL. FOLLOWS WITH WOUND MANAGEMENT FOR PERSISTENT RIGHT ELBOW WOUND THAT IS HEALING NICELY. HISTORY OF INSULIN-DEPENDENT DIABETES MELLITUS. REVIEWED MRI OF THE CERVICAL SPINE AND DISCUSSED TREATMENT OPTIONS.-. FALL RISK SCREENING: SCREENING :TWO OR MORE FALLS WITH INJURY IN THE PAST YEAR PATIENT SOUGHT MEDICAL TREATMENT SHORTLY AFTER FALLS. PAIN SCREENING: PATIENT HAS A COMPLAINT OF ACUTE OR CHRONIC PAIN :YES LOCATION OF PAIN:BACK INTENSITY OF PAIN (SCALE OF 1 TO 10):10 WHAT DOES YOUR PAIN FEEL LIKE:ACHING, CONTINOUS DURATION:CONTINOUS, CONSTANT, ALL DAY PAIN IS INCREASED BY:ACTIVITIES, PROLONGED STANDING PAIN IS DECREASED BY:OTHERS STRETCHING, LAYING FLAT TREATMENT/MEDICATIONS USED TO MANAGE PAIN: NOTHING HELPS WHEN PAIN FLARES UP. NURSING NOTE: -. PAIN CENTER INTAKE QUESTIONS: DO YOU HAVE A HISTORY OF MRSA? 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 DO YOU TAKE A BLOOD THINNERS? :NO DO YOU HAVE ANY BLEEDING DISORDERS? :NO ANY NEW NUMBNESS OR WEAKNESS IN YOUR LEGS OR ARMS? :NO ANY PACEMAKER,DEFIBRILLATOR, OR DORSAL COLUMN STIMULATOR? :NO DO YOU HAVE ANY RASHES OR OPEN SORES? :YES GENERALIZWD RASH AND OPEN AREAS ON ARMS AND LEGS ARE YOU ALLERGIC TO IV DYE? :NO ARE YOU DIABETIC? :NO ANY NEW PROBLEMS WITH YOUR MEDICATIONS? :NO HAVE YOU RECEIVED A VACCINE IN THE PAST 30 DAYS? :NO DO YOU PLAN TO RECEIVE A VACCINE IN THE NEXT 21 DAYS? :YES IF SO WHAT VACCINE AND WHEN? WOULD LIKE THE COVID VACCINATION WHEN AUTHORIZED AND AVAILABLE. DO YOU NEED ANY PRESCRIPTION? :NO DO YOU TAKE ANY IMMUNOSUPPRESSIVE MEDICATIONS? :NO IS THERE A CHANCE YOU COULD BE ? :NO ARE YOU BREAST FEEDING? :NO CURRENT MEDICATIONS UNKNOWN ACAMPROSATE CALCIUM 333 MG TABLET DELAYED RELEASE 2 TABLETS ORALLY THREE TIMES A DAY UNKNOWN ACETAMINOPHEN 500 MG CAPSULE 2 CAPSULE NEEDED FOR PAIN ORALLY EVERY 6 HRS UNKNOWN AMLODIPINE BESYLATE 2.5 MG TABLET 3 TABLETS ORALLY ONCE A DAY UNKNOWN AMOXICILLIN-POT CLAVULANATE 875-125 MG TABLET 1 TABLET ORALLY EVERY 12 HRS UNKNOWN ATORVASTATIN CALCIUM 80 MG TABLET 1/2 TABLET ORALLY ONCE A DAY UNKNOWN BUDESONIDE-FORMOTEROL FUMARATE 160-4.5 MCG/ACT AEROSOL 2 PUFFS INHALATION TWICE A DAY UNKNOWN CHOLECALCIFEROL 25 MCG (1000 UT) CAPSULE 2 CAPSULE ORALLY ONCE A DAY UNKNOWN CLINDAMYCIN PHOSPHATE 1 % SOLUTION 1 APPLICATION EXTERNALLY TWICE A DAY UNKNOWN CYANOCOBALAMIN 1000 MCG TABLET 1 TABLET ORALLY ONCE A DAY UNKNOWN DULOXETINE HCL 20 MG CAPSULE DELAYED RELEASE PARTICLES 2 CAPSULE ORALLY DAILY UNKNOWN FINASTERIDE 5 MG TABLET 1 TABLET ORALLY ONCE A DAY UNKNOWN FOLIC ACID 1 MG TABLET 1 TABLET ORALLY ONCE A DAY UNKNOWN NOVOLOG FLEXPEN 100 UNIT/ML SOLUTION DIRECTED SUBCUTANEOUS THREE TIMES PER DAY UNKNOWN K PHOS MONO-SOD PHOS DI & MONO 155-852-130 MG TABLET 1 TABLET ORALLY DAILY UNKNOWN LACTULOSE 10 GM/15ML SYRUP 15 ML ORALLY TWICE DAILY UNKNOWN LISINOPRIL 40 MG TABLET 1/2 TABLET ORALLY ONCE A DAY UNKNOWN MAGNESIUM OXIDE 400 MG TABLET 1 TABLET ORALLY TWICE DAILY UNKNOWN NICOTINE 4 MG GUM 1 PIECE FOR 30 MINUTE NEEDED MOUTH/THROAT UNKNOWN PANTOPRAZOLE SODIUM 20 MG TABLET DELAYED RELEASE 1 TABLET ORALLY TWICE DAILY UNKNOWN PREGABALIN 300 MG CAPSULE 1 CAPSULE ORALLY TWICE DAILY UNKNOWN TAMSULOSIN HCL 0.4 MG CAPSULE 1 CAPSULE ORALLY ONCE A DAY UNKNOWN THIAMINE 50 MG CAPSULE 1 CAP ORALLY ONCE A DAY UNKNOWN VITAMIN B COMPLEX - TABLET 1 TAB ORALLY DAILY UNKNOWN ZOLPIDEM TARTRATE 10 MG TABLET 1 TABLET AT BEDTIME ORALLY ONCE A DAY MEDICATION LIST REVIEWED AND RECONCILED WITH THE PATIENT PAST MEDICAL HISTORY DM II HTN A-FIB HIGH CHOLESTEROL ALLERGIES N.K.D.A. SURGICAL HISTORY INTESTINAL SURGERY X 2 06/2020 RIGHT GREAT TOE AMPUTATION 2016 FAMILY HISTORY FATHER: DIAGNOSED WITH DIABETES MOTHER: DIABETES SIBLINGS: DIABETES 2 BROTHER(S) , 1 SISTER(S) . 2 SON(S) - HEALTHY. SOCIAL HISTORY GENERAL: TOBACCO USE ARE YOU A:CURRENT SMOKER HOW MANY CIGARETTES A DAY DO YOU SMOKE?11-20 ARE YOU INTERESTED IN QUITTING?THINKING ABOUT QUITTING COUNSELED THE PATIENT ON SMOKING CESSATION, EDUCATION [id number]/15/2021 PREVIOUS QUIT ATTEMPTS?YES, MORE THAN 6 MONTHS AGO. LATEX QUESTIONNAIRE LATEX ALLERGY : HAVE YOU EVER DEVELOPED ANY TYPE OF REACTION AFTER HANDLING LATEX PRODUCTS SUCH RUBBER GLOVES, CONDOMS, DIAPHRAGMS, BALLOONS, SOCKS, OR UNDERWEAR?NO LATEX ALLERGY : HAVE YOU EVER DEVELOPED ANY TYPE OF REACTION DURING OR AFTER DENTAL APPOINTMENT, VAGINAL/RECTAL EXAMINATION, SURGICAL PROCEDURE, OR ANY OTHER EXPOSURE?NO LATEX RISK : HAVE YOU EVER HAD ANY DIFFICULTY BREATHING OR HIVES AFTER EATING OR HANDLING ANY FRUITS, OR VEGETABLES; SUCH KIWI, BANANAS, STONE FRUITS, OR CHESTNUTSNO LATEX RISK : DO YOU HAVE A PREVIOUS PERSONAL HISTORY OF MORE THAN NINE SURGERIES, SPINA BIFIDA, OR REPEATED CATHERIZATIONS? NO LATEX RISK : ARE YOU FREQUENTLY EXPOSED TO LATEX PRODUCTS IN YOUR OCCUPATION?NO DATE ASKED : 08/11/2020 ALCOHOL USE: NO. ALCOHOL SCREENING DID YOU HAVE A DRINK CONTAINING ALCOHOL IN THE PAST YEAR?NO POINTS0 INTERPRETATIONNEGATIVE RECREATIONAL DRUG USE DRUG USE?NO CAFFEINE CAFFEINE USE?YES HOW OFTEN AND HOW MUCH? 2 CUPS OF COFFEE DAILY DENOMINATIONAL DENOMINATIONAL NO CHRISTIAN BELIEFS THAT WOULD IMPACT HEALTH CARE. 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 DIET: CARBOHYDRATE CONTROLLED. EXERCISE: NONE. MARITAL STATUS: SINGLE. OTHERS AT HOME: NONE. HOSPITALIZATION/MAJOR DIAGNOSTIC PROCEDURE R/T SURGERY REVIEW OF SYSTEMS CONSTITUTIONAL: ANY RECENT FEVER NO . CHILLS NO . WEIGHT CHANGE OF UNKNOWN REASONS NO . MUSCULOSKELETAL: ANY UNUSUAL JOINT PAIN OR SWELLING NOT MENTIONED NO . SYSTEMIC LUPUS NO . ANY NEUROMUSCULAR DISORDER NOT MENTIONED NO . LYME DISEASE NO . GASTROENTEROLOGY: ANY NEW CHANGE IN BOWEL CONTROL? NO . HISTORY OF LIVER DISORDER NOT MENTIONED NO . HISTORY OF UNUSUAL ABDOMINAL PAIN OR CRAMPING NOT MENTIONED NO . NO CONSTIPATION. GENITOURINARY: ANY NEW CHANGE IN BLADDER CONTROL? NO . ANY RENAL/KIDNEY CONDITON NOT MENTIONED NO . NEUROLOGY: HISTORY OF TBI NOT MENTIONED NO . OTHER NEW NUMBNESS OR PAIN PATTERNS NOT MENTIONED NO . NEW ONSET DIZZINESS OR NEUROLOGICAL CHANGES NOT MENTIONED NO . HISTORY OF SEVERE HEADACHES NOT MENTIONED NO . HISTORY OF STROKE OR NEUROLOGICAL DISORDER NOT MENTIONED NO . CARDIOLOGY: HEART SURGERY NO . CONGESTIVE HEART FAILURE/FLUID OVERLOAD NOT MENTIONED NO . HISTORY OF CHEST PAIN,IRREGULAR HEART BEAT NOT MENTIONED NO . RESPIRATORY: SHORTNESS OF BREATH ON EXERTION, WHEEZES, UNUSUAL COUGH NOT MENTIONED NO . ENDOCRINOLOGY: ADRENAL GLAND OR THYROID DISORDERS NOT MENTIONED NO . UNUSUAL URINATION, DIZZINESS OR LETHARGY NOT MENTIONED NO . VITAL SIGNS WT 200.4 LBS, HT 73 IN, BMI 26.44 INDEX, BP 176/84 MM HG, REPEAT BP 150/82 MANUAL, HR 54 /MIN, RR 18 /MIN, TEMP 98 F, OXYGEN SAT % 99%, SAFE IN ENV? (Y/N) YES, REVIEWED BY: SARAY BP RETAKEN IN LEFT ARM AND PROVIDED TO PROVIDER. TIN JEROME MA. EXAMINATION GENERAL EXAMINATION: GENERALNO ACUTE DISTRESS, WELL NOURISHED AND HYDRATED. PSYCHAPPROPRIATE MOOD AND AFFECT . FACE:UNREMARKABLE. NECK:NO LYMPHADENOPATHY, SUPPLE. LUNGS: LUNG SOUNDS ARE CLEAR . HEART: HEART RATE REGULAR . MUSCULOSKELETAL:*, MUSCLE STRENGTH TESTING 5/5 BILATERAL UPPER EXTREMITIES. . CERVICAL:+ FOR PAIN WITH PALPATION OF CERVICAL SPINE. + FOR PAIN WITH PALPATION OF CERVICAL PARASPINALS.SPECIFIC POINT TENDERNESS NOTED OVER C5-6, C6-7, C7-T1 CERVICAL FACETS WITH EXTENSION AND FACET LOADING.. DIAGNOSTIC TESTS REVIEWED CERVICAL MRI JANUARY 2020. ASSESSMENTS CERVICAL SPONDYLOSIS - M47.812 (PRIMARY) LOW BACK PAIN AT MULTIPLE SITES - M54.5 TREATMENT CERVICAL SPONDYLOSIS [facility] MRI LUMBAR W/O CONTRAST (CPT 08370)[id number] NOTES: BILATERAL CERVICAL THERAPEUTIC FACET BLOCKC5/6,C6/7,C7/T1. PROCEDURE CODES FA211 ESTABILISHED PATIENT [facility] FAC[facility] CHARGE DISPOSITION & COMMUNICATION FOLLOW UP POST PROCEDURE (REASON: BILATERAL CERVICAL THERAPEUTIC FACET BLOCKC5/6,C6/7,C7/T1) ELECTRONICALLY SIGNED BY NICCI RICO ON 08/15/2020 AT 08:41 AM EST DISCLAIMER : THIS IS A VISIT SUMMARY EXTRACTED FROM THE [facility] [employer] CHART. IT IS NOT A COPY OF THE [facility] [employer] PROGRESS NOTE. BLAKE
== END ==
LOC: M PAIN 13:00
PROVIDERS: ATTEND Nurse Practitioner Family
DX: M47.812 Spondylosis without myelopathy or radiculopathy, cervical region (principal); M54.5 Low back pain; G89.29 Other chronic pain; E11.9 Type 2 diabetes mellitus without complications; F17.210 Nicotine dependence, cigarettes, uncomplicated; Z86.14 Personal history of Methicillin resistant Staphylococcus aureus infection; Z79.4 Long term (current) use of insulin; Z79.899 Other long term (current) drug therapy

== ENCOUNTER → 2020-08-18 | Outpatient (CLI) | payer OTHER, MEDICARE | LOC: M LABSMTC 09:28 | PROVIDERS: ATTEND Anesthesiology | DX: Z20.822 Contact with and (suspected) exposure to COVID-19 (principal) ==

== ENCOUNTER → 2020-08-23 | Outpatient (CLI) | payer MEDICARE, OTHER ==
[~2020-08-23] MED LIST changes: +BUPIVACAINE HCL 0.25% 30ML VIAL As Ordered ONE; +ISOVUE-M 300 61% 15ML VIAL As Ordered ONE; +LIDOCAINE 1% SDV 30ML VIAL As Ordered ONE; +TRIAMCINOLONE ACETONIDE SUSP 40 MG/ML VIAL (J3301) As Ordered ONE; +diazePAM 5MG TABLET As Ordered ONE; +oxyCODONE 5MG TAB As Ordered ONE
--- NOTE | 2020-08-23 18:52 | REP ---
INDICATION: BILAT CFBT. COMPARISON: None. TECHNIQUE: Two views. Eleven seconds of fluoroscopy time is reported. FINDINGS: A sequence of 2 last image hold fluoroscopically obtained spot radiograph(s) of the cervical spine document(s) needle position(s) and contrast injection associated with injection procedure. IMPRESSION: Procedural imaging. <Electronically signed by Yomi Koch > 08/23/20 [id number]
--- NOTE | 2020-09-01 01:48 | ECWPNPC ---
PATIENT NAME: CATALINA YEUNG : 1950 GENDER: MALE VISIT DATE: 08/23/2020 DISCHARGE DATE: 08/23/20901 VISIT LOCKED DATE TIME: PHYSICIAN: USAMA HARPER MD RESOURCE: USAMA HARPER MD REASON FOR APPOINTMENT 1. BILATERAL CERVICAL THERAPEUTIC FACET BLOCK C5-C6, C6-C7, C7-T1 HISTORY OF PRESENT ILLNESS GENERAL: -. FALL RISK SCREENING: SCREENING :TWO OR MORE FALLS WITHOUT INJURY IN THE PAST YEAR RECENTLY QUIT USING ALCOHOL, AND REPORTS FALLING A LOT LESS. PAIN SCREENING: PATIENT HAS A COMPLAINT OF ACUTE OR CHRONIC PAIN :YES LOCATION OF PAIN: NECK, LEFT ARM INTENSITY OF PAIN (SCALE OF 1 TO 10):9 0, WITH ANY MOVEMENT "IT COMES AND GOES, WHEN IT IS UPON ME, 9/10" WHAT DOES YOUR PAIN FEEL LIKE:ACHING DURATION:STEADY, AWAKENS FROM SLEEP PAIN IS INCREASED BY:ACTIVITIES PAIN IS DECREASED BY:OTHERS LAYING DOWN PLAN/GOALS/TREATMENT/INTERVENTION/FOLLOW UP:SEE PLAN NURSING NOTE: -. PAIN CENTER INTAKE QUESTIONS: DO YOU HAVE A HISTORY OF MRSA? :YES A YEAR AND A HALF AGO, RIGHT GREATER TOE, RESULTING IN AMPUTATION. DO YOU TAKE A BLOOD THINNERS? :NO DO YOU HAVE ANY BLEEDING DISORDERS? :NO ANY NEW NUMBNESS OR WEAKNESS IN YOUR LEGS OR ARMS? :NO ANY PACEMAKER,DEFIBRILLATOR, OR DORSAL COLUMN STIMULATOR? :NO DO YOU HAVE ANY RASHES OR OPEN SORES? :YES RIGHT ELBOW HEALING WOUND (FOLLOWING DR. ANN), PT HAS OPEN WOUNDS TO ALL LIMBS, DR HARPER IS AWARE. ARE YOU ALLERGIC TO IV DYE? :NO ARE YOU DIABETIC? :YES ANY NEW PROBLEMS WITH YOUR MEDICATIONS? :NO HAVE YOU RECEIVED A VACCINE IN THE PAST 30 DAYS? :NO DO YOU PLAN TO RECEIVE A VACCINE IN THE NEXT 21 DAYS? :NO DO YOU TAKE ANY IMMUNOSUPPRESSIVE MEDICATIONS? :NO ANY HISTORY OF SEIZURES? :NO ANY HISTORY OF CARDIAC ISSUES OR EVENTS? :NO DO YOU HAVE SLEEP APNEA? :NO ANY RECENT HEAD INJURY? :NO DO YOU HAVE ANY NEW INFECTIONS? :NO IS THERE A CHANCE YOU COULD BE ? :NO ARE YOU BREAST FEEDING? :NO WHEN DID YOU LAST EAT? : 08/22/20 WHEN DID YOU LAST DRINK? : 08/23/20 0730 AM WHAT DID YOU LAST DRINK? : WATER NAME OF PERSON DRIVING YOU HOME? : FRIEND DO YOU HAVE ANY OTHER QUESTIONS OR CONCERNS? : NO CURRENT MEDICATIONS TAKING CROMOLYN SODIUM 5.2 MG/ACT AEROSOL SOLUTION 1 SPRAY IN EACH NOSTRIL NASALLY EVERY 6 HOURS NEEDED FOR BREATHING TAKING ALLEVYN DRESSING ALLEVYN LIFE 4X4 APPLY TOPICALLY DIRECTED CHANGE 3 TIMES PER WEEK TAKING FERROUS SULFATE 325 MG CAPSULE 1 TABLET ORALLY ONCE A DAY TAKING MAY USE GLUCOSE SENSOR FREESTYLE USE DIRECTED TAKING HYDROPHILIC - OINTMENT DIRECTED EXTERNALLY APPLY MODERATE AMOUNT TOPICALLY BID TO SKIN TAKING INSULIN ASPART 100 UNIT/ML SOLUTION PEN-INJECTOR DIRECTED SUBCUTANEOUS BERNABE FLEXPEN 3 ML TID BEFORE MEALS TAKING INSULIN GLARGINE 100 UNIT/ML SOLUTION DIRECTED SUBCUTANEOUS INJECT 24 UNITS EVERY DAY TAKING LANCETS USE ONE TOPICALLY EVERY OTHER DAY FOR BLOOD GLUCOSE TESTING TAKING LEVOTHYROXINE SODIUM 25 MCG TABLET 1 TABLET IN THE MORNING ON AN EMPTY STOMACH ORALLY ONCE A DAY TAKING METOPROLOL SUCCINATE 50 MG TABLET EXTENDED RELEASE ONE HALF TAB ORALLY ONCE A DAY, NOTES: 08/22/20 TAKING MULTIVITAMIN - TABLET 1 TABLET ORALLY ONCE A DAY TAKING MAY USE NEEDLE SUBCUTANEOUSLY DIRECTED TAKING MAY USE POTASSIUM NITRATE 5% LAURA APPLY 1 STRIP TO TEETH AT HS, BRUDH FOR 1 MIN [place], THEN EXPECTORATE, NPO FOR 1/2 HOUR THEN RINSE TAKING ACAMPROSATE CALCIUM 333 MG TABLET DELAYED RELEASE 2 TABLETS ORALLY THREE TIMES A DAY TAKING ACETAMINOPHEN 500 MG CAPSULE 2 CAPSULE NEEDED FOR PAIN ORALLY EVERY 6 HRS TAKING ATORVASTATIN CALCIUM 80 MG TABLET 1/2 TABLET ORALLY ONCE A DAY TAKING BUDESONIDE-FORMOTEROL FUMARATE 160-4.5 MCG/ACT AEROSOL 2 PUFFS INHALATION TWICE A DAY TAKING CHOLECALCIFEROL 25 MCG (1000 UT) CAPSULE 2 CAPSULE ORALLY ONCE A DAY TAKING CLINDAMYCIN PHOSPHATE 1 % SOLUTION 1 APPLICATION EXTERNALLY TWICE A DAY TAKING CYANOCOBALAMIN 1000 MCG TABLET 1 TABLET ORALLY ONCE A DAY TAKING DULOXETINE HCL 20 MG CAPSULE DELAYED RELEASE PARTICLES 2 CAPSULE ORALLY DAILY, NOTES: 08/22/20 TAKING FINASTERIDE 5 MG TABLET 1 TABLET ORALLY ONCE A DAY TAKING FOLIC ACID 1 MG TABLET 1 TABLET ORALLY ONCE A DAY TAKING K PHOS MONO-SOD PHOS DI & MONO 155-852-130 MG TABLET 1 TABLET ORALLY DAILY TAKING LACTULOSE 10 GM/15ML SYRUP 15 ML ORALLY TWICE DAILY TAKING LISINOPRIL 40 MG TABLET 1/2 TABLET ORALLY ONCE A DAY, NOTES: 08/22/20 TAKING MAGNESIUM OXIDE 400 MG TABLET 1 TABLET ORALLY TWICE DAILY TAKING NICOTINE 4 MG GUM 1 PIECE FOR 30 MINUTE NEEDED MOUTH/THROAT TAKING PANTOPRAZOLE SODIUM 20 MG TABLET DELAYED RELEASE 1 TABLET ORALLY TWICE DAILY TAKING PREGABALIN 300 MG CAPSULE 1 CAPSULE ORALLY TWICE DAILY, NOTES: 08/22/20 TAKING TAMSULOSIN HCL 0.4 MG CAPSULE 1 CAPSULE ORALLY ONCE A DAY TAKING THIAMINE 50 MG CAPSULE 1 CAP ORALLY ONCE A DAY TAKING VITAMIN B COMPLEX - TABLET 1 TAB ORALLY DAILY TAKING ZOLPIDEM TARTRATE 10 MG TABLET 1 TABLET AT BEDTIME ORALLY ONCE A DAY, NOTES: 08/22/20 NOT-TAKING ASPIR-LOW 81 MG TABLET DELAYED RELEASE 1 TABLET ORALLY ONCE A DAY NOT-TAKING MELATONIN 3 MG TABLET 1 TABLET AT BEDTIME NEEDED ORALLY ONCE A DAY NOT-TAKING AMLODIPINE BESYLATE 2.5 MG TABLET 3 TABLETS ORALLY ONCE A DAY NOT-TAKING AMOXICILLIN-POT CLAVULANATE 875-125 MG TABLET 1 TABLET ORALLY EVERY 12 HRS NOT-TAKING NOVOLOG FLEXPEN 100 UNIT/ML SOLUTION DIRECTED SUBCUTANEOUS THREE TIMES PER DAY MEDICATION LIST REVIEWED AND RECONCILED WITH THE PATIENT PAST MEDICAL HISTORY DM II HTN A-FIB HIGH CHOLESTEROL ALLERGIES N.K.D.A. SOCIAL HISTORY GENERAL: TOBACCO USE ARE YOU A:CURRENT SMOKER ARE YOU INTERESTED IN QUITTING?THINKING ABOUT QUITTING PREVIOUS QUIT ATTEMPTS?YES, MORE THAN 6 MONTHS AGO. COUNSELED THE PATIENT ON SMOKING CESSATION, EDUCATION [id number]/15/2021 HOW MANY CIGARETTES A DAY DO YOU SMOKE?- VAPORNO E-CIGARETTENO LATEX QUESTIONNAIRE LATEX ALLERGY : HAVE YOU EVER DEVELOPED ANY TYPE OF REACTION AFTER HANDLING LATEX PRODUCTS SUCH RUBBER GLOVES, CONDOMS, DIAPHRAGMS, BALLOONS, SOCKS, OR UNDERWEAR?NO LATEX ALLERGY : HAVE YOU EVER DEVELOPED ANY TYPE OF REACTION DURING OR AFTER DENTAL APPOINTMENT, VAGINAL/RECTAL EXAMINATION, SURGICAL PROCEDURE, OR ANY OTHER EXPOSURE?NO LATEX RISK : HAVE YOU EVER HAD ANY DIFFICULTY BREATHING OR HIVES AFTER EATING OR HANDLING ANY FRUITS, OR VEGETABLES; SUCH KIWI, BANANAS, STONE FRUITS, OR CHESTNUTSNO LATEX RISK : DO YOU HAVE A PREVIOUS PERSONAL HISTORY OF MORE THAN NINE SURGERIES, SPINA BIFIDA, OR REPEATED CATHERIZATIONS? NO LATEX RISK : ARE YOU FREQUENTLY EXPOSED TO LATEX PRODUCTS IN YOUR OCCUPATION?NO DATE ASKED : 08/22/2020 ALCOHOL USE: NO. ALCOHOL SCREENING DID YOU HAVE A DRINK CONTAINING ALCOHOL IN THE PAST YEAR?NO POINTS0 INTERPRETATIONNEGATIVE RECREATIONAL DRUG USE DRUG USE?NO CAFFEINE CAFFEINE USE?YES HOW OFTEN AND HOW MUCH? 2 CUPS OF COFFEE DAILY SCIENTOLOGY SCIENTOLOGY NO UATSDIN BELIEFS THAT WOULD IMPACT HEALTH CARE. 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 DIET: CARBOHYDRATE CONTROLLED. EXERCISE: NONE. MARITAL STATUS: SINGLE. OTHERS AT HOME: NONE. VITAL SIGNS WT 199.4 LBS, HT 73 IN, BMI 26.30 INDEX, BP 136/67 MM HG, HR 72 /MIN, RR 18 /MIN, TEMP 97.3 F, OXYGEN SAT % 97%, SAFE IN ENV? (Y/N) Y, NA INITIALS SC13:59, REVIEWED BY: EM. EXAMINATION GENERAL EXAMINATION: THE PATIENT IS ALERT, ORIENTED TIMES THREE AND COOPERATIVE. LUNGS ARE CLEAR TO AUSCULTATION. HEART SHOWS REGULAR RHYTHM, NO MURMURS AND NO GALLOPS. ASSESSMENTS SPONDYLOSIS WITHOUT MYELOPATHY OR RADICULOPATHY, CERVICAL REGION - M47.812 (PRIMARY) TREATMENT SPONDYLOSIS WITHOUT MYELOPATHY OR RADICULOPATHY, CERVICAL REGION [facility] FACET BLOCK (PAIN)[id number] SALINE TIMOTHY GUZMAN 08/23/2020 3:39:30 PM > SL STARTED WITH #22G IN LEFT HAND AFTER 2 UNSUCCESSFUL ATTEMPTS BY Cliff PANTOJA(NO BLD RETURN EITHER TIME). CATH. FLUSHED EASILY WITHOUT RESISTANCE OR SWELLING. PT. TOLERATED PROCEDURE WELL. MEDICATION: VALIUM TAB 10MG ORALLY (DIAZEPAM)JOANNA CHANCE 08/23/2020 3:17:59 PM > VERIFIED AGUILAR BUI 08/23/2020 3:22:55 PM > ADMINISTERED MEDICATION: OXYCODONE HCL TAB 10MG ORALLYJOANNA CHANCE 08/23/2020 3:18:25 PM > VERIFIED AGUILAR BUI 08/23/2020 3:23:09 PM > ADMINISTERED COMPLETION OF PROCEDURAL VISIT WHEN MEETS CRITERIA OTHERS NOTES: 08/22/200 PAT COMPLETED. Martine COSTELLO ACCOUNT ASSISTANT. PATIENT STATED SCHEDULED COVID VACCINE ON , PATIENT EDUCATED ON CURRENT PRACTICE TO WAIT AT LEAST TWO WEEKS BEFORE VACCINE, 2MAR21. PROCEDURES PAIN NURSING RECORD PROCEDURE IN ROOM 1545, PHYSICIAN IN ROOM 1552, START 1558, FINISH 1603, PHYSICIAN OUT OF ROOM 1604, OUT OF ROOM 1615, ECG NORMAL SINUS, PATIENT SHIELDED YES, SAFETY STRAP YES, PREP CHLOROPREP Venkata WYATT RN, DRESSING TEGADERM DR HARPER LOC: 1. ALERT, ORIENTED, AGUILAR BUI 08/23/2020 4:02:01 PM > RESP: 1. REGULAR, NO DYSPNEA, AGUILAR BUI 08/23/2020 4:02:05 PM > COLOR: 1. PINK, AGUILAR BUI 08/23/2020 4:02:08 PM > SKIN: 1. WARM, DRY, AGUILAR BUI 08/23/2020 4:02:12 PM > POSITION: 1. PRONE, AGUILAR BUI 08/23/2020 4:02:15 PM > VITALS: 180/88, 69, 16, 96% AGUILAR BUI 08/23/2020 3:50:00 PM > , 169/78, 64, 16, 95%, AGUILAR BUI 08/23/2020 4:02:34 PM > 148/68, 62, 18, 96%, AGUILAR BUI 08/23/2020 4:18:52 PM > NOTES Dina BUI RN COMPLETION OF PROCEDURE APPOINTMENT: POST PAIN 3, DRESSING SITE DRY AND INTACT, IV DISCONTINUED, SITE CLEAR, CATHETER INTACT, GAIT STEADY, TEACHING COMPLETED, PATIENT ACKNOWLEDGES UNDERSTANDING YES, PROCEDURE APPOINTMENT COMPLETED AT 1633 : STERILE TRAY PREPARED BY Venkata WYATT RN REPORT GIVEN TO Misti BECKER RN, AGUILAR BUI 08/23/2020 4:19:37 PM > PN CERVICAL FACET BLOCK LOW BILATERAL CERVICAL PRE PROCEDURE DIAGNOSIS CERVICAL SPONDYLOSIS POST PROCEDURE DIAGNOSIS CERVICAL SPONDYLOSIS PROCEDURE BILATERAL C5-C6 AND BILATERAL C6-C7 THERAPEUTIC CERVICAL FACET BLOCK SURGEON DR. USAMA HARPER PAINT [place] NONE ANESTHESIA LOCAL PRE PROCEDURE NOTE THE PATIENT HAS HISTORY OF CHRONIC CERVICAL PAIN. I EVALUATED THE PATIENT AND REVIEWED THE CHART. I WENT OVER THE RISKS, ALTERNATIVES, AND BENEFITS ASSOCIATED WITH THIS PROCEDURE. THE PATIENT WOULD LIKE TO PROCEED AND GIVE CONSENT TO PERFORMED THE PROCEDURE. THE PATIENT DENIES UNEXPLAINABLE WEIGHT LOSS, FEVER, CHILLS, OR NEW CHANGES IN URINARY OR BOWEL CONTROL. THE PATIENT IS COVID-19 NEGATIVE. THE PATIENT HAS SOME LESIONS ON HIS ARMS. I DISCUSSED WITH THE PATIENT THAT HE NEEDS TO DISCUSS THIS WITH THE SLOT TAG INSERTER. I DISCUSSED THE RISKS. WE AGREE ON MOVING FORWARD. DESCRIPTION OF PROCEDURE THE PATIENT WAS BROUGHT TO THE PROCEDURE ROOM AND PLACED IN THE PRONE POSITION. THE CERVICOTHORACIC AREA WAS CLEANED WITH CHLORAPREP SOLUTION AND DRAPED ASEPTICALLY. THE PROCEDURE WAS DONE UNDER STERILE CONDITIONS. A TIMEOUT WAS PERFORMED WHERE THE CONSENTED SITE WAS VERIFIED WITH EVERYONE IN THE ROOM. UNDER FLUOROSCOPIC GUIDANCE, TARGET POINT WAS SELECTED AT THE RIGHT AND LEFT C5-C6 AND RIGHT AND LEFT C6-C7 CERVICAL FACET JOINT. TARGET POINTS WERE SELECTED AFTER LATERAL ROTATION AND TILT OF THE MAGNIFIER OF THE C-ARM. I CONFIRMED AGAIN THE SITE OF THE TARGET. LIDOCAINE 0.5% WAS USED TO NUMB THE SKIN AND THE SUBCUTANEOUS TISSUE BELOW IT. SPINAL NEEDLES, 22-GAUGE, WERE ADVANCED UNDER FLUOROSCOPIC GUIDANCE AND FOLLOWING PATIENT FEEDBACK UNTIL THE TARGETS WERE TOUCHED. THE POSITION OF THE NEEDLES WAS VERIFIED WITH AP AND LATERAL VIEWS. AFTER PROPER POSITION OF THE NEEDLES WAS ACHIEVED, ISOVUE-M DYE 30%, 0.1 ML, WAS INJECTED SHOWING SPREAD OF THE DYE. KENALOG 10 MG WAS INJECTED AT EACH SITE. THEN A SOLUTION OF 6 ML OF BUPIVACAINE 0.125% WAS USED TO FLUSH EACH SITE. THE MEDICATIONS WERE VERIFIED WITH THE NURSE. THERE WAS NO EVIDENCE OF BLOOD, PARESTHESIA OR CEREBROSPINAL FLUID DURING THE PROCEDURE. THE PATIENT WAS SENT TO THE RECOVERY ROOM. THE PATIENT WAS MOVING THE EXTREMITIES AND DOING WELL. THERE WERE NO COMPLICATIONS DURING THE PROCEDURE. ESTIMATED BLOOD LOSS WAS LESS THAN 5 ML. FLUOROSCOPY TIME WAS 11 SECONDS. POST PROCEDURE NOTE THE PATIENT WILL BE SEEN IN A FOLLOW UP IN THE NEXT FEW WEEKS. I AM LOOKING FOR LONG LASTING RELIEF FOR THE PATIENT WITH THIS INTERVENTION. INSTRUCTIONS WERE GIVEN, QUESTIONS WERE ANSWERED, AND THE PATIENT EXPRESSED UNDERSTANDING AND AGREES WITH THE PLAN. I, BRIAN CALABRESE, DOCUMENTED THE ABOVE INFORMATION ACTING A SCRIBE FOR DR. HARPER. I HAVE REVIEWED THE ABOVE DOCUMENT, WRITTEN BY BRIAN CALABRESE, APPEALS NURSE, AND I VERIFY THAT IT IS ACCURATE PROCEDURE CODES 36365 INJ PARAVERT F JNT C/T 1 LEV, MODIFIERS: 50 [id number] INJ PARAVERT F JNT C/T 2 LEV, MODIFIERS: 50 DISPOSITION & COMMUNICATION FOLLOW UP FOLLOW UP WITH MARKET DEVELOPMENT EXECUTIVE (REASON: POST BILATERAL THERAPEUTIC CERVICAL FACET BLOCK C5-C6, C6-C7) ELECTRONICALLY SIGNED BY USAMA HARPER MD, ON 08/31/2020 AT 01:02 PM EST DISCLAIMER : THIS IS A VISIT SUMMARY EXTRACTED FROM THE [employer] CHART. IT IS NOT A COPY OF THE [employer] PROGRESS NOTE. MTDD
== END ==
LOC: M PAIN 13:40
PROVIDERS: ATTEND Anesthesiology
DX: M47.812 Spondylosis without myelopathy or radiculopathy, cervical region (principal); E11.9 Type 2 diabetes mellitus without complications; F17.210 Nicotine dependence, cigarettes, uncomplicated; Z79.4 Long term (current) use of insulin; Z79.899 Other long term (current) drug therapy
CPT/HCPCS: 64490; 64491; J3301; Q9967

== ENCOUNTER → 2020-09-02 | Outpatient (CLI) | payer OTHER ==
[~2020-09-02] MED LIST changes: -BUPIVACAINE HCL 0.25% 30ML VIAL As Ordered ONE; -ISOVUE-M 300 61% 15ML VIAL As Ordered ONE; -LIDOCAINE 1% SDV 30ML VIAL As Ordered ONE; -TRIAMCINOLONE ACETONIDE SUSP 40 MG/ML VIAL (J3301) As Ordered ONE; -diazePAM 5MG TABLET As Ordered ONE; -oxyCODONE 5MG TAB As Ordered ONE
--- NOTE | 2020-09-02 13:22 | REPVR ---
PROCEDURE INFORMATION: Exam: MR Lumbar Spine Without Contrast Exam date and time: 09/02/2020 11:16 AM Age: 69 years old Clinical indication: Low back pain TECHNIQUE: Imaging protocol: Multiplanar magnetic resonance images of the lumbar spine without intravenous contrast. COMPARISON: CR Spine. Lumbosacral, complete 01/09/2017 2:24 PM FINDINGS: Vertebrae: There is no fracture or listhesis. Marrow signal is within normal limits. Spinal cord: Normal signal. No cord compression. L1-L2: No significant disc disease. No significant spinal canal stenosis. No neural foraminal stenosis. L2-L3: No significant disc disease. No significant spinal canal stenosis. No neural foraminal stenosis. L3-L4: There is shallow disc bulging. There is mild facet and ligamentous hypertrophy. There is mild bilateral neural foraminal narrowing. L4-L5: There is shallow disc bulging. There is fwfx-aw-xnycdsww facet and ligamentous hypertrophy. There is bxuk-bu-hmypakpk right neural foraminal narrowing. There is mild canal stenosis. L5-S1: There is diffuse disc bulging. There is mild facet hypertrophy. The spinal canal and neural foramina are patent. Soft tissues: Unremarkable. IMPRESSION: Degenerative disc disease and spondylosis as described. At L4/5, changes contribute to lmxo-fg-nwrryhaq right neural foraminal narrowing and mild canal stenosis. Electronically signed by: Marleny Dean On 09/02/2020 13:22:37 PM
== END ==
LOC: M RAD 10:26
PROVIDERS: ATTEND Nurse Practitioner Family
DX: M51.36 Other intervertebral disc degeneration, lumbar region (principal); M47.896 Other spondylosis, lumbar region; M54.5 Low back pain

== ENCOUNTER → 2020-09-07 | Outpatient (CLI) | payer OTHER, MEDICARE ==
--- NOTE | 2020-09-16 04:04 | ECWPNPC ---
PATIENT NAME: CATALINA YEUNG : 1950 GENDER: MALE VISIT DATE: 09/07/2020 DISCHARGE DATE: 09/07/20 1145 VISIT LOCKED DATE TIME: PHYSICIAN: TATUM PULIDO RESOURCE: TATUM PUILDO REASON FOR APPOINTMENT 1. POST BILATERAL CERVICAL THERAPEUTIC FACET BLOCK C5-C6, C6-C7, C7-T1 HISTORY OF PRESENT ILLNESS GENERAL: HERE FOR POST PROCEDURE FOLLOW-UP. HAD BILATERAL CERVICAL THERAPEUTIC FACET BLOCK C5-6, C6-7, C7-T1 ON 08/23/2020. REPORTING MARKED REDUCTION IN NECK PAIN THAT CONTINUES TODAY. CHIEF AREA OF PAIN IS LOW BACK. PAIN ACROSS THE LOWER BACK IS AGGRAVATED WITH PROLONGED STANDING. PAIN IS RELIEVED SOMEWHAT AT REST. REVIEWED MRI OF THE LS-SPINE AND DISCUSS TREATMENT PLAN.-. FALL RISK SCREENING: SCREENING : NO FALLS REPORTED IN THE LAST YEAR. PAIN SCREENING: PATIENT HAS A COMPLAINT OF ACUTE OR CHRONIC PAIN :YES LOCATION OF PAIN:NECK INTENSITY OF PAIN (SCALE OF 1 TO 10):0 WHAT DOES YOUR PAIN FEEL LIKE:ACHING DURATION:CONTINOUS, CONSTANT, ALL DAY PAIN IS INCREASED BY:ACTIVITIES PAIN IS DECREASED BY:OTHERS HEATING PAD NURSING NOTE: -. PAIN CENTER INTAKE QUESTIONS: DO YOU HAVE A HISTORY OF MRSA? 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 DO YOU TAKE A BLOOD THINNERS? :YES LYRICA DO YOU HAVE ANY BLEEDING DISORDERS? :NO ANY NEW NUMBNESS OR WEAKNESS IN YOUR LEGS OR ARMS? :NO ANY PACEMAKER,DEFIBRILLATOR, OR DORSAL COLUMN STIMULATOR? :NO DO YOU HAVE ANY RASHES OR OPEN SORES? :YES GENERALIZWD RASH AND OPEN AREAS ON ARMS AND LEGS ARE YOU ALLERGIC TO IV DYE? :NO ARE YOU DIABETIC? :YES ANY NEW PROBLEMS WITH YOUR MEDICATIONS? :NO HAVE YOU RECEIVED A VACCINE IN THE PAST 30 DAYS? :NO DO YOU PLAN TO RECEIVE A VACCINE IN THE NEXT 21 DAYS? :YES IF SO WHAT VACCINE AND WHEN? 09/10/2020 COVID 1ST DO YOU NEED ANY PRESCRIPTION? :NO DO YOU TAKE ANY IMMUNOSUPPRESSIVE MEDICATIONS? :NO IS THERE A CHANCE YOU COULD BE ? :NO ARE YOU BREAST FEEDING? :NO CURRENT MEDICATIONS TAKING CROMOLYN SODIUM 5.2 MG/ACT AEROSOL SOLUTION 1 SPRAY IN EACH NOSTRIL NASALLY EVERY 6 HOURS NEEDED FOR BREATHING TAKING ALLEVYN DRESSING ALLEVYN LIFE 4X4 APPLY TOPICALLY DIRECTED CHANGE 3 TIMES PER WEEK TAKING FERROUS SULFATE 325 MG CAPSULE 1 TABLET ORALLY ONCE A DAY TAKING MAY USE GLUCOSE SENSOR FREESTYLE USE DIRECTED TAKING HYDROPHILIC - OINTMENT DIRECTED EXTERNALLY APPLY MODERATE AMOUNT TOPICALLY BID TO SKIN TAKING INSULIN ASPART 100 UNIT/ML SOLUTION PEN-INJECTOR DIRECTED SUBCUTANEOUS BERNABE FLEXPEN 3 ML TID BEFORE MEALS TAKING INSULIN GLARGINE 100 UNIT/ML SOLUTION DIRECTED SUBCUTANEOUS INJECT 24 UNITS EVERY DAY TAKING LANCETS USE ONE TOPICALLY EVERY OTHER DAY FOR BLOOD GLUCOSE TESTING TAKING LEVOTHYROXINE SODIUM 25 MCG TABLET 1 TABLET IN THE MORNING ON AN EMPTY STOMACH ORALLY ONCE A DAY TAKING METOPROLOL SUCCINATE 50 MG TABLET EXTENDED RELEASE ONE HALF TAB ORALLY ONCE A DAY TAKING MULTIVITAMIN - TABLET 1 TABLET ORALLY ONCE A DAY TAKING MAY USE NEEDLE SUBCUTANEOUSLY DIRECTED TAKING MAY USE POTASSIUM NITRATE 5% LAURA APPLY 1 STRIP TO TEETH AT HS, BRUDH FOR 1 MIN NEYMAR, THEN EXPECTORATE, NPO FOR 1/2 HOUR THEN RINSE TAKING ACAMPROSATE CALCIUM 333 MG TABLET DELAYED RELEASE 2 TABLETS ORALLY THREE TIMES A DAY TAKING ACETAMINOPHEN 500 MG CAPSULE 2 CAPSULE NEEDED FOR PAIN ORALLY EVERY 6 HRS TAKING ATORVASTATIN CALCIUM 80 MG TABLET 1/2 TABLET ORALLY ONCE A DAY TAKING BUDESONIDE-FORMOTEROL FUMARATE 160-4.5 MCG/ACT AEROSOL 2 PUFFS INHALATION TWICE A DAY TAKING CHOLECALCIFEROL 25 MCG (1000 UT) CAPSULE 2 CAPSULE ORALLY ONCE A DAY TAKING CLINDAMYCIN PHOSPHATE 1 % SOLUTION 1 APPLICATION EXTERNALLY TWICE A DAY TAKING CYANOCOBALAMIN 1000 MCG TABLET 1 TABLET ORALLY ONCE A DAY TAKING DULOXETINE HCL 20 MG CAPSULE DELAYED RELEASE PARTICLES 2 CAPSULE ORALLY DAILY TAKING FINASTERIDE 5 MG TABLET 1 TABLET ORALLY ONCE A DAY TAKING FOLIC ACID 1 MG TABLET 1 TABLET ORALLY ONCE A DAY TAKING K PHOS MONO-SOD PHOS DI & MONO 155-852-130 MG TABLET 1 TABLET ORALLY DAILY TAKING LACTULOSE 10 GM/15ML SYRUP 15 ML ORALLY TWICE DAILY TAKING LISINOPRIL 40 MG TABLET 1/2 TABLET ORALLY ONCE A DAY TAKING MAGNESIUM OXIDE 400 MG TABLET 1 TABLET ORALLY TWICE DAILY TAKING NICOTINE 4 MG GUM 1 PIECE FOR 30 MINUTE NEEDED MOUTH/THROAT TAKING PANTOPRAZOLE SODIUM 20 MG TABLET DELAYED RELEASE 1 TABLET ORALLY TWICE DAILY TAKING TAMSULOSIN HCL 0.4 MG CAPSULE 1 CAPSULE ORALLY ONCE A DAY TAKING THIAMINE 50 MG CAPSULE 1 CAP ORALLY ONCE A DAY TAKING VITAMIN B COMPLEX - TABLET 1 TAB ORALLY DAILY TAKING ZOLPIDEM TARTRATE 10 MG TABLET 1 TABLET AT BEDTIME ORALLY ONCE A DAY NOT-TAKING PREGABALIN 300 MG CAPSULE 1 CAPSULE ORALLY TWICE DAILY NOT-TAKING ASPIR-LOW 81 MG TABLET DELAYED RELEASE 1 TABLET ORALLY ONCE A DAY NOT-TAKING MELATONIN 3 MG TABLET 1 TABLET AT BEDTIME NEEDED ORALLY ONCE A DAY NOT-TAKING AMLODIPINE BESYLATE 2.5 MG TABLET 3 TABLETS ORALLY ONCE A DAY NOT-TAKING AMOXICILLIN-POT CLAVULANATE 875-125 MG TABLET 1 TABLET ORALLY EVERY 12 HRS NOT-TAKING NOVOLOG FLEXPEN 100 UNIT/ML SOLUTION DIRECTED SUBCUTANEOUS THREE TIMES PER DAY MEDICATION LIST REVIEWED AND RECONCILED WITH THE PATIENT PAST MEDICAL HISTORY DM II HTN A-FIB HIGH CHOLESTEROL NECK PAIN ALLERGIES N.K.D.A. SOCIAL HISTORY GENERAL: TOBACCO USE ARE YOU A:CURRENT SMOKER ARE YOU INTERESTED IN QUITTING?THINKING ABOUT QUITTING PREVIOUS QUIT ATTEMPTS?YES, MORE THAN 6 MONTHS AGO. COUNSELED THE PATIENT ON SMOKING CESSATION, EDUCATION [id number]/03/2021 HOW MANY CIGARETTES A DAY DO YOU SMOKE?11-20 VAPORNO E-CIGARETTENO LATEX QUESTIONNAIRE LATEX ALLERGY : HAVE YOU EVER DEVELOPED ANY TYPE OF REACTION AFTER HANDLING LATEX PRODUCTS SUCH RUBBER GLOVES, CONDOMS, DIAPHRAGMS, BALLOONS, SOCKS, OR UNDERWEAR?NO LATEX ALLERGY : HAVE YOU EVER DEVELOPED ANY TYPE OF REACTION DURING OR AFTER DENTAL APPOINTMENT, VAGINAL/RECTAL EXAMINATION, SURGICAL PROCEDURE, OR ANY OTHER EXPOSURE?NO LATEX RISK : HAVE YOU EVER HAD ANY DIFFICULTY BREATHING OR HIVES AFTER EATING OR HANDLING ANY FRUITS, OR VEGETABLES; SUCH KIWI, BANANAS, STONE FRUITS, OR CHESTNUTSNO LATEX RISK : DO YOU HAVE A PREVIOUS PERSONAL HISTORY OF MORE THAN NINE SURGERIES, SPINA BIFIDA, OR REPEATED CATHERIZATIONS? NO LATEX RISK : ARE YOU FREQUENTLY EXPOSED TO LATEX PRODUCTS IN YOUR OCCUPATION?NO DATE ASKED : 09/07/2020 ALCOHOL USE: NO. ALCOHOL SCREENING DID YOU HAVE A DRINK CONTAINING ALCOHOL IN THE PAST YEAR?NO POINTS0 INTERPRETATIONNEGATIVE RECREATIONAL DRUG USE DRUG USE?NO CAFFEINE CAFFEINE USE?YES HOW OFTEN AND HOW MUCH? 2 CUPS OF COFFEE DAILY BAHAI BAHAI NO MORMONISM BELIEFS THAT WOULD IMPACT HEALTH CARE. 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 DIET: CARBOHYDRATE CONTROLLED. EXERCISE: NONE. MARITAL STATUS: SINGLE. OTHERS AT HOME: NONE. REVIEW OF SYSTEMS CONSTITUTIONAL: ANY RECENT FEVER NO . CHILLS NO . WEIGHT CHANGE OF UNKNOWN REASONS NO . GASTROENTEROLOGY: NEW UNEXPLAINABLE CHANGES IN BOWEL CONTROL NO . CONSTIPATION NO . GENITOURINARY: ANY NEW CHANGE IN BLADDER CONTROL? NO . NEUROLOGY: NEW ONSET DIZZINESS OR NEUROLOGICAL CHANGES NOT MENTIONED NO . NEW NUMBNESS OR PAIN PATTERNS NOT MENTIONED AND PERTINENT TO TODAY'S VISIT NO . CARDIOLOGY: NEW CHEST PRESSURE NO . PATIENT DENIES NO . RESPIRATORY: UNEXPLAINABLE COUGH NO . NEW SHORTNESS OF BREATH NO . VITAL SIGNS WT 198.8 LBS, HT 73 IN, BMI 26.23 INDEX, BP 172/72 MM HG, HR 60 /MIN, RR 18 /MIN, TEMP 98.0 F, OXYGEN SAT % 96%, SAFE IN ENV? (Y/N) YES, NA INITIALS SC 10:59T.LEIDA PAREKH. EXAMINATION GENERAL EXAMINATION: GENERAL AWAKE,ALERT ,PLEASANT . PSYCH AFFECT NORMAL . LUNGS: LUNG AMES ARE CLEAR TO AUSCULTATION BILATERALLY. GOOD MOVEMENT OF AIR . HEART: S1, S2 IN A REGULAR RATE AND RHYTHM. NO SIGNIFICANT MURMURS, RUBS OR GALLOPS NOTED . LUMBAR: PALPATION: + FOR PAIN OVER L/S SPINE. + FOR PAIN OVER L/S PARASPINALS SPECIFIC POINT TENDERNESS OVER LUMBAR FACETS WITH FACET LOADING. NEUROLOGIC EXAM: NORMAL SENSATION LIGHT TOUCH BILAT. LOWER EXTREMITIES . DIAGNOSTIC TESTS REVIEWED MRI L/S SPINE-09/02/20. ASSESSMENTS LUMBAR FACET ARTHROPATHY - M47.816 (PRIMARY) OTHER CHRONIC PAIN - G89.29 TREATMENT LUMBAR FACET ARTHROPATHY MEDICATION: VALIUM TAB 10MG ORALLY (DIAZEPAM) (ORDERED FOR 09/14/2020) MEDICATION: OXYCODONE HCL TAB 10MG ORALLY (ORDERED FOR 09/14/2020) NOTES: BILATERAL THERAPEUTIC LUMBAR FACET BLOCK L3-4,L4-5,L5-S1 PRINTED AND REVIEWED PRE PROCEDURE WITH PATIENT KYLE PAREKH. OTHER CHRONIC PAIN PAIN PROCEDURE LOGDATE OF PROCEDURE1PROCEDURE:BILATERAL CERVICAL THERAPEUTIC FACET BLOCK C5-6, C6-7, C7-[id number] OF PRE SEDATEVALIUM 10 MG & OXYCODONE 10 MGRESULT:MARKED REDUCTION IN PAIN CONTINUES TODAY PROCEDURE CODES FA211 ESTABILISHED PATIENT FORMERLY [facility] CHARGE DISPOSITION & COMMUNICATION FOLLOW UP POST (REASON: BILATERAL THERAPEUTIC LUMBAR FACET BLOCK L3-4,L4-5,L5-S1) ELECTRONICALLY SIGNED BY NICCI RICO ON 09/15/2020 AT 09:18 AM EST DISCLAIMER : THIS IS A VISIT SUMMARY EXTRACTED FROM THE [employer] CHART. IT IS NOT A COPY OF THE [facility] PROGRESS NOTE. MTDD
== END ==
LOC: M PAIN 10:45
PROVIDERS: ATTEND Nurse Practitioner Family
DX: M47.816 Spondylosis without myelopathy or radiculopathy, lumbar region (principal); G89.29 Other chronic pain; E11.9 Type 2 diabetes mellitus without complications; F17.210 Nicotine dependence, cigarettes, uncomplicated; Z86.14 Personal history of Methicillin resistant Staphylococcus aureus infection; Z79.4 Long term (current) use of insulin; Z79.899 Other long term (current) drug therapy

== ENCOUNTER → 2020-09-16 | Outpatient (CLI) | payer MEDICARE, OTHER ==
[2020-09-16 13:07] LABS: BASO # 0.1 10^3/uL (0.0-0.2); BASO % 0.7 % (0.0-1.0); EOS # 0.5 10^3/uL (0.0-0.5); EOS % 4.1 % (0.0-3.0); HEMATOCRIT 34.7 % (42.0-52.0); HEMOGLOBIN 9.5 g/dl (13.5-17.5); LYMPH # 3.2 10^3/uL (1.5-5.0); LYMPH % 27.6 % (24.0-44.0); MEAN CORPUSCULAR HEMOGLOBIN 19.5 pg (27.0-33.0); MEAN CORPUSCULAR HGB CONC 27.4 g/dl (32.0-36.5); MEAN CORPUSCULAR VOLUME 71.1 fl (80.0-96.0); MONO # 0.9 10^3/uL (0.0-0.8); MONO % 7.4 % (2.0-8.0); NEUTROPHILS # 6.8 10^3/uL (1.5-8.5); NEUTROPHILS % 59.9 % (36.0-66.0); PLATELET COUNT, AUTOMATED 320 10^3/uL (150-450); RED BLOOD COUNT 4.88 10^6/uL (4.30-6.10); WHITE BLOOD COUNT 11.4 10^3/uL (4.0-10.0)
== END ==
LOC: M LAB 11:51
PROVIDERS: ATTEND Internal Medicine Gastroenterology
DX: D64.9 Anemia, unspecified (principal)

== ENCOUNTER → 2020-10-20 | Outpatient (CLI) | payer MEDICARE, OTHER | LOC: M LABSMTC 11:58 | PROVIDERS: ATTEND Anesthesiology | DX: Z11.52 Encounter for screening for COVID-19 (principal) ==

== ENCOUNTER → 2020-10-25 | Outpatient (CLI) | payer OTHER, MEDICARE ==
[~2020-10-25] MED LIST changes: +BUPIVACAINE HCL 0.25% 30ML VIAL As Ordered ONE; +ISOVUE-M 300 61% 15ML VIAL As Ordered ONE; +LIDOCAINE 1% SDV 30ML VIAL As Ordered ONE; +TRIAMCINOLONE ACETONIDE SUSP 40 MG/ML VIAL (J3301) As Ordered ONE; +diazePAM 5MG TABLET As Ordered ONE; +oxyCODONE 5MG TAB As Ordered ONE
--- NOTE | 2020-10-25 13:09 | REP ---
INDICATION: PAIN. COMPARISON: None. TECHNIQUE: Two views. 23.6 seconds of fluoroscopy time is reported. FINDINGS: A sequence of 2 last image hold fluoroscopically obtained spot radiograph(s) of the lumbar spine document(s) needle position(s) and contrast injection associated with injection procedure. IMPRESSION: Procedural imaging. <Electronically signed by Yomi Koch > 10/25/20 2723
--- NOTE | 2020-11-01 03:17 | ECWPNPC ---
PATIENT NAME: CATALINA YEUNG : 1950 GENDER: MALE VISIT DATE: 10/25/2020 DISCHARGE DATE: 10/25/20 1322 VISIT LOCKED DATE TIME: PHYSICIAN: USAMA HARPER MD RESOURCE: USAMA HARPER MD REASON FOR APPOINTMENT 1. BILATERAL THERAPEUTIC LUMBAR FACET BLOCK L3-L4, L4-L5 HISTORY OF PRESENT ILLNESS GENERAL: -. FALL RISK SCREENING: SCREENING : NO FALLS REPORTED IN THE LAST YEAR. PAIN SCREENING: PATIENT HAS A COMPLAINT OF ACUTE OR CHRONIC PAIN :YES LOCATION OF PAIN:LOW BACK INTENSITY OF PAIN (SCALE OF 1 TO 10):2 STATES 5/10 WITH STANDING WHAT DOES YOUR PAIN FEEL LIKE:ACHING "WHEN IT IS BAD ITS HORRIBLE, ITS JUST AWFUL" "BACK ACHE" RESULTING IN INABILITY TO PERFROM ADLS. DURATION:CONTINOUS, CONSTANT, ALL DAY PAIN IS INCREASED BY:ACTIVITIES, PROLONGED STANDING PAIN IS DECREASED BY:USE OF PAIN MEDICATIONS, SITTING, OTHERS HEATING PAD PLAN/GOALS/TREATMENT/INTERVENTION/FOLLOW UP:SEE PLAN NURSING NOTE: -. PAIN CENTER INTAKE QUESTIONS: DO YOU HAVE A HISTORY OF MRSA? 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 DO YOU TAKE A BLOOD THINNERS? :NO DO YOU HAVE ANY BLEEDING DISORDERS? :NO ANY NEW NUMBNESS OR WEAKNESS IN YOUR LEGS OR ARMS? :NO ANY PACEMAKER,DEFIBRILLATOR, OR DORSAL COLUMN STIMULATOR? :NO DO YOU HAVE ANY RASHES OR OPEN SORES? :YES GENERALIZED RASH AND OPEN AREAS ON ARMS AND LEGS. ARE YOU ALLERGIC TO IV DYE? :NO ARE YOU DIABETIC? :YES 0900 FSBS 162 ANY NEW PROBLEMS WITH YOUR MEDICATIONS? :NO HAVE YOU RECEIVED A VACCINE IN THE PAST 30 DAYS? :YES IF SO WHAT VACCINE AND WHEN? 2ND COVID VACCINE 10/08/20 DO YOU PLAN TO RECEIVE A VACCINE IN THE NEXT 21 DAYS? :NO DO YOU TAKE ANY IMMUNOSUPPRESSIVE MEDICATIONS? :NO ANY HISTORY OF SEIZURES? :NO ANY HISTORY OF CARDIAC ISSUES OR EVENTS? :YES AFIB DO YOU HAVE ANY KIDNEY OR LIVER DISEASE? :NO DO YOU HAVE SLEEP APNEA? :NO ANY RECENT HEAD INJURY? :NO DO YOU HAVE ANY NEW INFECTIONS? :NO IS THERE A CHANCE YOU COULD BE ? :N/A ARE YOU BREAST FEEDING? :N/A WHEN DID YOU LAST EAT? : 10/24 08 WHEN DID YOU LAST DRINK? : 10/25 0800 WHAT DID YOU LAST DRINK? : COFFEE-NO CREAMER NAME OF PERSON DRIVING YOU HOME? : FRIEND DO YOU HAVE ANY OTHER QUESTIONS OR CONCERNS? : NO PAST MEDICAL HISTORY DM II HTN A-FIB HIGH CHOLESTEROL NECK PAIN ALLERGIES N.K.D.A. SURGICAL HISTORY INTESTINAL SURGERY X 2 06/2020 RIGHT GREAT TOE AMPUTATION 2017 SOCIAL HISTORY GENERAL: TOBACCO USE ARE YOU A:CURRENT SMOKER ARE YOU INTERESTED IN QUITTING?THINKING ABOUT QUITTING PREVIOUS QUIT ATTEMPTS?YES, MORE THAN 6 MONTHS AGO. COUNSELED THE PATIENT ON SMOKING CESSATION, EDUCATION [id number]/19/2021 HOW MANY CIGARETTES A DAY DO YOU SMOKE?- VAPORNO E-CIGARETTENO LATEX QUESTIONNAIRE LATEX ALLERGY : HAVE YOU EVER DEVELOPED ANY TYPE OF REACTION AFTER HANDLING LATEX PRODUCTS SUCH RUBBER GLOVES, CONDOMS, DIAPHRAGMS, BALLOONS, SOCKS, OR UNDERWEAR?NO LATEX ALLERGY : HAVE YOU EVER DEVELOPED ANY TYPE OF REACTION DURING OR AFTER DENTAL APPOINTMENT, VAGINAL/RECTAL EXAMINATION, SURGICAL PROCEDURE, OR ANY OTHER EXPOSURE?NO LATEX RISK : HAVE YOU EVER HAD ANY DIFFICULTY BREATHING OR HIVES AFTER EATING OR HANDLING ANY FRUITS, OR VEGETABLES; SUCH KIWI, BANANAS, STONE FRUITS, OR CHESTNUTSNO LATEX RISK : DO YOU HAVE A PREVIOUS PERSONAL HISTORY OF MORE THAN NINE SURGERIES, SPINA BIFIDA, OR REPEATED CATHERIZATIONS? NO LATEX RISK : ARE YOU FREQUENTLY EXPOSED TO LATEX PRODUCTS IN YOUR OCCUPATION?NO DATE ASKED : 10/24/2020 ALCOHOL USE: NO. ALCOHOL SCREENING DID YOU HAVE A DRINK CONTAINING ALCOHOL IN THE PAST YEAR?NO POINTS0 INTERPRETATIONNEGATIVE RECREATIONAL DRUG USE DRUG USE?NO CAFFEINE CAFFEINE USE?YES HOW OFTEN AND HOW MUCH? 2 CUPS OF COFFEE DAILY CATHOLIC CATHOLIC NO ANABAPTIST BELIEFS THAT WOULD IMPACT HEALTH CARE. 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 DIET: CARBOHYDRATE CONTROLLED. EXERCISE: NONE. MARITAL STATUS: SINGLE. OTHERS AT HOME: NONE. HOSPITALIZATION/MAJOR DIAGNOSTIC PROCEDURE R/T SURGERY ABNORMAL ENDOSCOPY RESULTS/ HTN ([facility]) 10/14/20-10/15/20 VITAL SIGNS WT 207.0 LBS, HT 73 IN, BMI 27.31 INDEX, BP 180/90 MM HG, REPEAT BP MANUAL BP, HR 60 /MIN, RR 18 /MIN, TEMP 98.2 F, OXYGEN SAT % 98%, NA INITIALS AW 1124. EXAMINATION GENERAL: A HISTORY AND PHYSICAL EXAM ON THE PATIENT WAS DONE ON 09/07/2020(DATE OF ORIGINAL ASSESSMENT) IN PREPARATION OF SURGERY/PROCEDURE. I HAVE NOW REASSESSED THIS PATIENT'S HEALTH STATUS AND PERFORMED AN UPDATED EXAM TODAY. ALL CHANGES IN THE PATIENT'S HISTORY, PHYSICAL EXAM, PRE-EXISTING CONDITONS, AND INDICATIONS/CONTRAINDICATIONS TO THE PLANNED PROCEDURE AND ANESTHESIA ARE DOCUMENTED AND EVALUATED BELOW. I ATTEST TO THE ADEQUACY AND APPROPRIATENESS OF MY ASSESSMENT, AND CONFIRM THE NECESSITY FOR THE PLANNED PROCEDURE. THE PATIENT IS ALERT, ORIENTED TIMES THREE AND COOPERATIVE. LUNGS ARE CLEAR TO AUSCULTATION. HEART SHOWS REGULAR RHYTHM, NO MURMURS AND NO GALLOPS. ASSESSMENTS LUMBAR FACET ARTHROPATHY - M47.816 (PRIMARY) TREATMENT LUMBAR FACET ARTHROPATHY [facility] FACET BLOCK (PAIN)[id number] COMPLETION OF PROCEDURAL VISIT WHEN MEETS CRITERIA MEDICATION: VALIUM TAB 10MG ORALLY (DIAZEPAM)HAOBLADIMIR LombardiAGUILAR 10/25/2020 11:47:29 AM > VERIFIED JOANNA CHANCE 10/25/2020 11:50:18 AM > ADMINISTERED MEDICATION: OXYCODONE HCL TAB 10MG ORALLYODILONMaria CAGUILAR 10/25/2020 11:47:43 AM > VERIFIED JOANNA CHANCE 10/25/2020 11:50:41 AM > ADMINISTERED OTHERS NOTES: 10/24/20 1130 SARAH COSTELLO, MANUFACTURING OPERATIONS MANAGER. PROCEDURES PAIN NURSING RECORD PROCEDURE IN ROOM 1225, PHYSICIAN IN ROOM 1241, START 1248, FINISH 1254, PHYSICIAN OUT OF ROOM 1256, OUT OF ROOM 1259, ECG NORMAL SINUS, PATIENT SHIELDED YES, SAFETY STRAP YES, PREP CHLOROPREP Martine CHANCE RN, DRESSING TEGADERM DR. HARPER LOC: ROBS[facility] MARY 10/25/2020 12:25:15 PM > , 1. ALERT, ORIENTED RESP: 1. REGULAR, NO DYSPNEA COLOR: 1. PINK SKIN: 1. WARM, DRY POSITION: 1. PRONE VITALS: JOANNA CHANCE 10/25/2020 12:30:04 PM > 182/88 HR 66 16 94% R/A [facility] 10/25/2020 12:45:27 PM > 176/84 HR 61 16 92% R/A [facility] 10/25/2020 1:00:05 PM 178/88 HR 62 16 93% R/A D/C V/S COMPLETION OF PROCEDURE APPOINTMENT: POST PAIN 0, DRESSING SITE DRY AND INTACT, IV N/A, GAIT STEADY, TEACHING COMPLETED, PATIENT ACKNOWLEDGES UNDERSTANDING YES, PROCEDURE APPOINTMENT COMPLETED AT 1315 PN LUMBAR FACET BLOCK THERAPEUTIC PRE PROCEDURE DIAGNOSIS LUMBAR SPONDYLOSIS, LUMBOSACRAL SPONDYLOSIS POST PROCEDURE DIAGNOSIS LUMBAR SPONDYLOSIS, LUMBOSACRAL SPONDYLOSIS PROCEDURE BILATERAL L3-L4 AND BILATERAL L4-L5 LUMBAR FACET THERAPEUTIC BLOCK SURGEON DR. USAMA HARPER FIBERGLASS CONTAINER WINDING OPERATOR NONE ANESTHESIA LOCAL PRE PROCEDURE NOTE THE PATIENT HAS A HISTORY OF CHRONIC LOW BACK PAIN. I EVALUATED THE PATIENT AND REVIEWED THE CHART. I WENT OVER THE RISKS, ALTERNATIVES, AND BENEFITS ASSOCIATED WITH THIS PROCEDURE. THE PATIENT WOULD LIKE TO PROCEED AND GIVES CONSENT TO PERFORM THE PROCEDURE. THE PATIENT DENIES UNEXPLAINABLE WEIGHT LOSS, FEVER, CHILLS, OR NEW CHANGES IN URINARY OR BOWEL CONTROL. THE PATIENT IS COVID-19 NEGATIVE DESCRIPTION OF PROCEDURE THE PATIENT WAS BROUGHT TO THE PROCEDURE ROOM AND PLACED IN THE PRONE POSITION. THE LUMBOSACRAL AREA WAS CLEANED WITH CHLORAPREP SOLUTION AND DRAPED ASEPTICALLY. THE PROCEDURE WAS DONE UNDER STERILE CONDITIONS. A TIMEOUT WAS PERFORMED WHERE THE CONSENTED SITE WAS VERIFIED WITH EVERYONE IN THE ROOM. UNDER FLUOROSCOPIC GUIDANCE, THE TARGET POINT WAS SELECTED AT THE RIGHT AND LEFT L3-L4 AND RIGHT AND LEFT L4-L5 FACET JOINTS. TARGET POINT WAS SELECTED AFTER LATERAL ROTATION AND TILT OF THE MAGNIFIER OF THE C-ARM. I CONFIRMED AGAIN THE SITE OF TARGET. LIDOCAINE 0.5% WAS USED TO NUMB THE SKIN AND THE SUBCUTANEOUS TISSUE BELOW IT. SPINAL NEEDLES, 22-GAUGE, WERE ADVANCED UNDER FLUOROSCOPIC GUIDANCE AND FOLLOWING PATIENT FEEDBACK UNTIL THE TARGETS WERE TOUCHED. THE POSITION OF THE NEEDLES WAS VERIFIED WITH AP AND LATERAL VIEWS. AFTER PROPER POSITION OF THE NEEDLES WAS ACHIEVED, ISOVUE-M DYE 30%, 0.1 ML, WAS INJECTED SHOWING ADEQUATE SPREAD OF THE DYE. KENALOG 10 MG WAS INJECTED AT EACH SITE. THEN, A SOLUTION OF 1.0 ML OF BUPIVACAINE 0.125% OF WAS USED TO FLUSH EACH SITE. THE MEDICATION WAS VERIFIED WITH THE NURSE. THERE WAS NO EVIDENCE OF BLOOD, PARESTHESIA OR CEREBROSPINAL FLUID DURING THE PROCEDURE. THE PATIENT WAS SENT TO THE RECOVERY ROOM. THE PATIENT WAS MOVING THE EXTREMITIES AND DOING WELL. THERE WERE NO COMPLICATIONS DURING THE PROCEDURE. ESTIMATED BLOOD LOSS WAS LESS THAN 5 ML. FLUOROSCOPY TIME WAS 23 SECONDS POST PROCEDURE NOTE THE PATIENT WILL BE SEEN IN A FOLLOW UP IN THE NEXT FEW WEEKS. I AM LOOKING FOR LONG LASTING RELIEF FOR THE PATIENT WITH THIS INTERVENTION. INSTRUCTIONS WERE GIVEN, QUESTIONS WERE ANSWERED, AND THE PATIENT EXPRESSED UNDERSTANDING AND AGREES WITH THE PLAN. I, BRIAN CALABRESE, DOCUMENTED THE ABOVE INFORMATION ACTING A SCRIBE FOR DR. HARPER. I HAVE REVIEWED THE ABOVE DOCUMENT, WRITTEN BY BRIAN CALABRESE, DIRECTOR FACILITIES MAINTENANCE, AND I VERIFY THAT IT IS ACCURATE PROCEDURE CODES 10882 INJ PARAVERT F JNT L/S 1 LEV, MODIFIERS: 50 [id number] INJ PARAVERT F JNT L/S 2 LEV, MODIFIERS: 50 DISPOSITION & COMMUNICATION FOLLOW UP FOLLOW UP WITH TESTER WAFER SUBSTRATE (REASON: POST BILATERAL THERAPEUTIC LUMBAR FACET BLOCK L3-L4, L4-L5) ELECTRONICALLY SIGNED BY USAMA HARPER MD, MD ON 10/31/2020 AT 07:22 PM EDT DISCLAIMER : THIS IS A VISIT SUMMARY EXTRACTED FROM THE [employer] CHART. IT IS NOT A COPY OF THE [employer] PROGRESS NOTE. AMINAD
== END ==
LOC: M PAIN 11:00
PROVIDERS: ATTEND Anesthesiology
DX: M47.816 Spondylosis without myelopathy or radiculopathy, lumbar region (principal); E11.9 Type 2 diabetes mellitus without complications; I10 Essential (primary) hypertension; I48.91 Unspecified atrial fibrillation; E78.00 Pure hypercholesterolemia, unspecified; M54.2 Cervicalgia; F17.210 Nicotine dependence, cigarettes, uncomplicated
CPT/HCPCS: 64493; 64494; J3301; Q9967

== ENCOUNTER → 2020-11-07 | Outpatient (CLI) | payer OTHER, MEDICARE ==
[~2020-11-07] MED LIST changes: -BUPIVACAINE HCL 0.25% 30ML VIAL As Ordered ONE; -ISOVUE-M 300 61% 15ML VIAL As Ordered ONE; -LIDOCAINE 1% SDV 30ML VIAL As Ordered ONE; -TRIAMCINOLONE ACETONIDE SUSP 40 MG/ML VIAL (J3301) As Ordered ONE; -diazePAM 5MG TABLET As Ordered ONE; -oxyCODONE 5MG TAB As Ordered ONE
--- NOTE | 2020-11-09 01:11 | ECWPNPC ---
PATIENT NAME: CATALINA YEUNG : 1950 GENDER: MALE VISIT DATE: 11/07/2020 DISCHARGE DATE: 11/07/20 1359 VISIT LOCKED DATE TIME: PHYSICIAN: TATUM PULIDO RESOURCE: TATUM PULIDO REASON FOR APPOINTMENT 1. POST BILATERAL THERAPEUTIC LUMBAR FACET BLOCK L3-L4, L4-L5, L5-S1 HISTORY OF PRESENT ILLNESS GENERAL: HERE FOR POST PROCEDURE FOLLOW-UP. HAD BILATERAL THERAPEUTIC LUMBAR FACET BLOCK L3-4, L4-5 ON 10/25/2020. REPORTING MARKED REDUCTION IN LOW BACK PAIN THAT CONTINUES TODAY. PATIENT WILL BE HAVING LEFT SHOULDER SURGERY THIS WEEK. HE IS HAVING A LEFT SHOULDER REPLACEMENT. REVIEWED TREATMENT PLAN. -. FALL RISK SCREENING: SCREENING ONE FALLS REPORTED IN THE LAST YEAR. PAIN SCREENING: PATIENT HAS A COMPLAINT OF ACUTE OR CHRONIC PAIN :YES LOCATION OF PAIN:LOW BACK INTENSITY OF PAIN (SCALE OF 1 TO 10):0 WHAT DOES YOUR PAIN FEEL LIKE:ACHING, BURNING DURATION:CONTINOUS, CONSTANT, ALL DAY PAIN IS INCREASED BY:ACTIVITIES, PROLONGED STANDING PAIN IS DECREASED BY:SITTING NURSING NOTE: -. PAIN CENTER INTAKE QUESTIONS: DO YOU HAVE A HISTORY OF MRSA? :YES 2018 HAD AN INFECTION IN HIS BIG TOE DO YOU TAKE A BLOOD THINNERS? :NO DO YOU HAVE ANY BLEEDING DISORDERS? :NO WAS IN THE PAST ANY NEW NUMBNESS OR WEAKNESS IN YOUR LEGS OR ARMS? :NO ANY PACEMAKER,DEFIBRILLATOR, OR DORSAL COLUMN STIMULATOR? :NO DO YOU HAVE ANY RASHES OR OPEN SORES? :NO ARE YOU ALLERGIC TO IV DYE? :NO ARE YOU DIABETIC? :YES TYPE 2 ANY NEW PROBLEMS WITH YOUR MEDICATIONS? :NO HAVE YOU RECEIVED A VACCINE IN THE PAST 30 DAYS? :YES IF SO WHAT VACCINE AND WHEN? 2ND DOSE OF COVID 10/09/2020 DO YOU PLAN TO RECEIVE A VACCINE IN THE NEXT 21 DAYS? :NO DO YOU NEED ANY PRESCRIPTION? :NO DO YOU TAKE ANY IMMUNOSUPPRESSIVE MEDICATIONS? :NO DO YOU HAVE ANY KIDNEY OR LIVER DISEASE? :NO IS THERE A CHANCE YOU COULD BE ? :NO ARE YOU BREAST FEEDING? :NO CURRENT MEDICATIONS TAKING CROMOLYN SODIUM 5.2 MG/ACT AEROSOL SOLUTION 1 SPRAY IN EACH NOSTRIL NASALLY EVERY 6 HOURS NEEDED FOR BREATHING TAKING ALLEVYN DRESSING ALLEVYN LIFE 4X4 APPLY TOPICALLY DIRECTED CHANGE 3 TIMES PER WEEK TAKING FERROUS SULFATE 325 MG CAPSULE 1 TABLET ORALLY ONCE A DAY TAKING MAY USE GLUCOSE SENSOR FREESTYLE USE DIRECTED TAKING HYDROPHILIC - OINTMENT DIRECTED EXTERNALLY APPLY MODERATE AMOUNT TOPICALLY BID TO SKIN TAKING INSULIN ASPART 100 UNIT/ML SOLUTION PEN-INJECTOR DIRECTED SUBCUTANEOUS BERNABE FLEXPEN 3 ML TID BEFORE MEALS TAKING INSULIN GLARGINE 100 UNIT/ML SOLUTION DIRECTED SUBCUTANEOUS INJECT 24 UNITS EVERY DAY TAKING LANCETS USE ONE TOPICALLY EVERY OTHER DAY FOR BLOOD GLUCOSE TESTING TAKING LEVOTHYROXINE SODIUM 25 MCG TABLET 1 TABLET IN THE MORNING ON AN EMPTY STOMACH ORALLY ONCE A DAY TAKING METOPROLOL SUCCINATE 50 MG TABLET EXTENDED RELEASE ONE HALF TAB ORALLY ONCE A DAY TAKING MULTIVITAMIN - TABLET 1 TABLET ORALLY ONCE A DAY TAKING MAY USE NEEDLE SUBCUTANEOUSLY DIRECTED TAKING MAY USE POTASSIUM NITRATE 5% LAURA APPLY 1 STRIP TO TEETH AT HS, BRUDH FOR 1 MIN COEUR D'ALENE, THEN EXPECTORATE, NPO FOR 1/2 HOUR THEN RINSE TAKING ACAMPROSATE CALCIUM 333 MG TABLET DELAYED RELEASE 2 TABLETS ORALLY THREE TIMES A DAY TAKING ACETAMINOPHEN 500 MG CAPSULE 2 CAPSULE NEEDED FOR PAIN ORALLY EVERY 6 HRS TAKING ATORVASTATIN CALCIUM 80 MG TABLET 1/2 TABLET ORALLY ONCE A DAY TAKING BUDESONIDE-FORMOTEROL FUMARATE 160-4.5 MCG/ACT AEROSOL 2 PUFFS INHALATION TWICE A DAY TAKING CHOLECALCIFEROL 25 MCG (1000 UT) CAPSULE 2 CAPSULE ORALLY ONCE A DAY TAKING CLINDAMYCIN PHOSPHATE 1 % SOLUTION 1 APPLICATION EXTERNALLY TWICE A DAY TAKING CYANOCOBALAMIN 1000 MCG TABLET 1 TABLET ORALLY ONCE A DAY TAKING DULOXETINE HCL 20 MG CAPSULE DELAYED RELEASE PARTICLES 2 CAPSULE ORALLY DAILY TAKING FINASTERIDE 5 MG TABLET 1 TABLET ORALLY ONCE A DAY TAKING FOLIC ACID 1 MG TABLET 1 TABLET ORALLY ONCE A DAY TAKING K PHOS MONO-SOD PHOS DI & MONO 155-852-130 MG TABLET 1 TABLET ORALLY DAILY TAKING LACTULOSE 10 GM/15ML SYRUP 15 ML ORALLY TWICE DAILY TAKING LISINOPRIL 40 MG TABLET 1/2 TABLET ORALLY ONCE A DAY TAKING MAGNESIUM OXIDE 400 MG TABLET 1 TABLET ORALLY TWICE DAILY TAKING NICOTINE 4 MG GUM 1 PIECE FOR 30 MINUTE NEEDED MOUTH/THROAT TAKING PANTOPRAZOLE SODIUM 20 MG TABLET DELAYED RELEASE 1 TABLET ORALLY TWICE DAILY TAKING TAMSULOSIN HCL 0.4 MG CAPSULE 1 CAPSULE ORALLY ONCE A DAY TAKING THIAMINE 50 MG CAPSULE 1 CAP ORALLY ONCE A DAY TAKING VITAMIN B COMPLEX - TABLET 1 TAB ORALLY DAILY TAKING ZOLPIDEM TARTRATE 10 MG TABLET 1 TABLET AT BEDTIME ORALLY ONCE A DAY TAKING AMLODIPINE BESYLATE 10 MG TABLET 1/2 TABLET ORALLY ONCE A DAY TAKING FERROUS GLUCONATE 324 (38 FE) MG TABLET 1 TABLET WITH WATER OR JUICE BETWEEN MEALS ORALLY ONCE A DAY NOT-TAKING PREGABALIN 300 MG CAPSULE 1 CAPSULE ORALLY TWICE DAILY NOT-TAKING ASPIR-LOW 81 MG TABLET DELAYED RELEASE 1 TABLET ORALLY ONCE A DAY NOT-TAKING MELATONIN 3 MG TABLET 1 TABLET AT BEDTIME NEEDED ORALLY ONCE A DAY NOT-TAKING AMLODIPINE BESYLATE 2.5 MG TABLET 3 TABLETS ORALLY ONCE A DAY NOT-TAKING AMOXICILLIN-POT CLAVULANATE 875-125 MG TABLET 1 TABLET ORALLY EVERY 12 HRS NOT-TAKING NOVOLOG FLEXPEN 100 UNIT/ML SOLUTION DIRECTED SUBCUTANEOUS THREE TIMES PER DAY MEDICATION LIST REVIEWED AND RECONCILED WITH THE PATIENT PAST MEDICAL HISTORY DM II HTN A-FIB HIGH CHOLESTEROL NECK PAIN ALLERGIES N.K.D.A. SOCIAL HISTORY GENERAL: TOBACCO USE ARE YOU A:CURRENT SMOKER ARE YOU INTERESTED IN QUITTING?THINKING ABOUT QUITTING PREVIOUS QUIT ATTEMPTS?YES, MORE THAN 6 MONTHS AGO. COUNSELED THE PATIENT ON SMOKING CESSATION, EDUCATION [id number]/03/2021 HOW MANY CIGARETTES A DAY DO YOU SMOKE?11-20 HOW SOON AFTER YOU WAKE UP DO YOU SMOKE YOUR FIRST CIGARETTE?6-30 MIN VAPORNO E-CIGARETTENO LATEX QUESTIONNAIRE LATEX ALLERGY : HAVE YOU EVER DEVELOPED ANY TYPE OF REACTION AFTER HANDLING LATEX PRODUCTS SUCH RUBBER GLOVES, CONDOMS, DIAPHRAGMS, BALLOONS, SOCKS, OR UNDERWEAR?NO LATEX ALLERGY : HAVE YOU EVER DEVELOPED ANY TYPE OF REACTION DURING OR AFTER DENTAL APPOINTMENT, VAGINAL/RECTAL EXAMINATION, SURGICAL PROCEDURE, OR ANY OTHER EXPOSURE?NO LATEX RISK : HAVE YOU EVER HAD ANY DIFFICULTY BREATHING OR HIVES AFTER EATING OR HANDLING ANY FRUITS, OR VEGETABLES; SUCH KIWI, BANANAS, STONE FRUITS, OR CHESTNUTSNO LATEX RISK : DO YOU HAVE A PREVIOUS PERSONAL HISTORY OF MORE THAN NINE SURGERIES, SPINA BIFIDA, OR REPEATED CATHERIZATIONS? NO LATEX RISK : ARE YOU FREQUENTLY EXPOSED TO LATEX PRODUCTS IN YOUR OCCUPATION?NO DATE ASKED : 11/07/2020 ALCOHOL USE: NO. ALCOHOL SCREENING DID YOU HAVE A DRINK CONTAINING ALCOHOL IN THE PAST YEAR?NO POINTS0 INTERPRETATIONNEGATIVE RECREATIONAL DRUG USE DRUG USE?NO CAFFEINE CAFFEINE USE?YES HOW OFTEN AND HOW MUCH? 2 CUPS OF COFFEE DAILY TAOIST TAOIST NO [employer]IST BELIEFS THAT WOULD IMPACT HEALTH CARE. 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 DIET: CARBOHYDRATE CONTROLLED. EXERCISE: NONE. MARITAL STATUS: SINGLE. OTHERS AT HOME: NONE. REVIEW OF SYSTEMS CONSTITUTIONAL: ANY RECENT FEVER NO . CHILLS NO . WEIGHT CHANGE OF UNKNOWN REASONS NO . GASTROENTEROLOGY: NEW UNEXPLAINABLE CHANGES IN BOWEL CONTROL NO . CONSTIPATION NO . GENITOURINARY: ANY NEW CHANGE IN BLADDER CONTROL? NO . NEUROLOGY: NEW ONSET DIZZINESS OR NEUROLOGICAL CHANGES NOT MENTIONED NO . NEW NUMBNESS OR PAIN PATTERNS NOT MENTIONED AND PERTINENT TO TODAY'S VISIT NO . CARDIOLOGY: NEW CHEST PRESSURE NO . PATIENT DENIES NO . RESPIRATORY: UNEXPLAINABLE COUGH NO . NEW SHORTNESS OF BREATH NO . VITAL SIGNS WT 210.8 LBS, HT 73 IN, BMI 27.81 INDEX, BP 194/84 MM HG, REPEAT BP 180/80 MM HG, HR 78 /MIN, RR 18 /MIN, TEMP 97.0 F, OXYGEN SAT % 95%, BLOOD GLUCOSE LEVEL 164 THIS AM, SAFE IN ENV? (Y/N) YES, NA INITIALS AW 1318T.LEIDA PAREKH. EXAMINATION GENERAL EXAMINATION: GENERALAWAKE,ALERT ,PLEASANT . PSYCHAFFECT NORMAL . LUNGS:LUNG AMES ARE CLEAR TO AUSCULTATION BILATERALLY. GOOD MOVEMENT OF AIR . HEART:S1, S2 IN A REGULAR RATE AND RHYTHM. NO SIGNIFICANT MURMURS, RUBS OR GALLOPS NOTED . ASSESSMENTS LUMBAR FACET ARTHROPATHY - M47.816 (PRIMARY) OTHER CHRONIC PAIN - G89.29 CERVICAL SPONDYLOSIS - M47.812 TREATMENT LUMBAR FACET ARTHROPATHY NOTES: CONTINUE HOME EXERCISE AND STRETCHING. FOLLOW-UP IS SCHEDULED IN 3 MONTHS. OTHER CHRONIC PAIN PAIN PROCEDURE LOGDATE OF PROCEDURE1PROCEDURE:BIALTERAL THERAPEUTIC LUMBAR FACET BLOCK L3-L4,L4-F4UMWSJT OF PRE SEDATEVALIUM 10MG, OXYCODONE 10MGRESULT:MARKED REDUCTION IN PAIN CONTINUES TODAY PROCEDURE CODES FA211 ESTABILISHED PATIENT [facility] CHARGE DISPOSITION & COMMUNICATION FOLLOW UP 3 MONTHS (REASON: LOW BACK PAIN, NECK PAIN) ELECTRONICALLY SIGNED BY NICCI RICO ON 11/08/2020 AT 01:27 PM EDT DISCLAIMER : THIS IS A VISIT SUMMARY EXTRACTED FROM THE [employer] CHART. IT IS NOT A COPY OF THE [employer] PROGRESS NOTE. AMINAD
== END ==
LOC: M PAIN 13:15
PROVIDERS: ATTEND Nurse Practitioner Family
DX: G89.29 Other chronic pain (principal); M47.812 Spondylosis without myelopathy or radiculopathy, cervical region; E11.9 Type 2 diabetes mellitus without complications; I10 Essential (primary) hypertension; I48.91 Unspecified atrial fibrillation; E78.00 Pure hypercholesterolemia, unspecified; M54.2 Cervicalgia; F17.210 Nicotine dependence, cigarettes, uncomplicated; Z79.4 Long term (current) use of insulin; Z79.899 Other long term (current) drug therapy

== ENCOUNTER 2020-12-17 15:05 | Inpatient (IN) | payer MEDICARE, OTHER ==
[~2020-12-17] VITALS: Ht 180.3 cm; Wt 85.6 kg
[~2020-12-17 15:05] MED LIST changes: +GABA-283 PO; -GABA-845 PO
--- NOTE | 2020-12-17 15:32 | REP ---
INDICATION: Altered Mental Status. COMPARISON: Comparison CT study of the brain is from June 18, 2020.. TECHNIQUE: Helical scanning is acquired. 5 mm axial images were reformatted. Coronal MPR images were generated. FINDINGS: Preliminary digital organizational research consultant radiograph is unremarkable. Bone window settings demonstrate intact bony calvarium. Visualized paranasal sinuses are essentially clear. No intraorbital abnormality is seen. On soft tissue window settings there is moderate generalized volume loss again noted with concordant ventricular enlargement. There is vascular calcification in the distal vertebral and distal internal carotid arteries bilaterally as previously seen. There is no evidence of intracranial hemorrhage. Fairly extensive dural calcification is noted incidentally in the falx. No infarct, mass, extra-axial fluid collection, or midline shift is seen. IMPRESSION: Vascular calcification and generalized volume loss. No acute intracranial abnormality.. <Electronically signed by Yomi Koch > 12/17/20 1523
--- NOTE | 2020-12-17 15:33 | REP ---
INDICATION: Altered Mental Status. COMPARISON: Comparison chest x-ray June 16, 2020. TECHNIQUE: Portable upright AP chest radiograph. FINDINGS: The lungs are symmetrically aerated and free of infiltrate. The pleural angles are sharp. Cardiomediastinal silhouette is unremarkable. Monitoring electrodes are seen. There are multiple rib fractures noted bilaterally which appear to be old. Pulmonary vasculature is not increased.. IMPRESSION: No active disease. <Electronically signed by Yomi Koch > 12/17/20 4040
[2020-12-17 15:46] LABS: VENOUS BASE EXCESS -4.9 (-2.0-2.0); VENOUS HCO3 21.4 MEQ/L (23.0-27.0); VENOUS O2 SATURATION 78.5 % (60.0-80.0); VENOUS PARTIAL PRESSURE CO2 44.2 mmHg (38.0-50.0); VENOUS PARTIAL PRESSURE O2 45.8 mmHg (30.0-50.0); VENOUS PH 7.303 UNITS (7.330-7.430); VENOUS TOTAL CO2 22.8 MEQ/L (24.0-28.0)
[2020-12-17 15:58] LABS: BASO # 0.1 10^3/uL (0.0-0.2); BASO % 0.4 % (0.0-1.0); EOS # 0.1 10^3/uL (0.0-0.5); EOS % 0.4 % (0.0-3.0); HEMATOCRIT 49.3 % (42.0-52.0); HEMOGLOBIN 14.9 g/dl (13.5-17.5); LYMPH # 1.9 10^3/uL (1.5-5.0); LYMPH % 16.5 % (24.0-44.0); MEAN CORPUSCULAR HEMOGLOBIN 22.7 pg (27.0-33.0); MEAN CORPUSCULAR HGB CONC 30.2 g/dl (32.0-36.5); MEAN CORPUSCULAR VOLUME 75.3 fl (80.0-96.0); MONO % 8.8 % (2.0-8.0); NEUTROPHILS # 8.6 10^3/uL (1.5-8.5); NEUTROPHILS % 73.2 % (36.0-66.0); PLATELET COUNT, AUTOMATED 166 10^3/uL (150-450); RED BLOOD COUNT 6.55 10^6/uL (4.30-6.10); WHITE BLOOD COUNT 11.8 10^3/uL (4.0-10.0)
[2020-12-17 16:22] LABS: OSMOLALITY SERUM 334 MOSM/KG (280-301)
[2020-12-17 16:30] LABS: ALBUMIN 3.8 GM/DL (3.2-5.2); ALT/SGPT 814 U/L (12-78); BILIRUBIN,DIRECT 1.2 MG/DL (0.0-0.2); BILIRUBIN,TOTAL 1.9 MG/DL (0.2-1.0); BLOOD UREA NITROGEN 84 MG/DL (7-18); CALCIUM LEVEL 8.7 MG/DL (8.8-10.2); CARBON DIOXIDE LEVEL 22 MEQ/L (21-32); CHLORIDE LEVEL 100 MEQ/L (98-107); CK-MB VALUE MASS 1.9 NG/ML (<3.6); CPK CREATINE PHOSPHOKINASE 54 U/L (39-308); CREATININE FOR GFR 2.86 MG/DL (0.70-1.30); ETHYL ALCOHOL (ETHANOL) < 0.003 % (0.000-0.010); GLOMERULAR FILTRATION RATE 23.5 (>49); GLUCOSE, FASTING 464 MG/DL (70-100); MB/CK RELATIVE INDEX 3.52 (< OR =4); SODIUM LEVEL 132 MEQ/L (136-145); TOTAL PROTEIN 7.7 GM/DL (6.4-8.2); TROPONIN I < 0.02 NG/ML (< 0.10)
[2020-12-17] MEDS ORDERED: NS 1,000 ML IV SCH (16:40)
[2020-12-17] MEDS ORDERED: CALCIUM GLUCONATE 1,000 MG in D5W MINI-BAG PLUS 100 ML IV ONE (16:40)
[2020-12-17] MEDS ORDERED: HumuLIN R (REGULAR) INSULIN (NovoLIN R) **100U/ML** PER UNIT IV ONE (16:40)
[2020-12-17 17:55] LABS: RSV AMPLIFICATION NEGATIVE (NEGATIVE)
[2020-12-17] MEDS ORDERED: ZOLP10TA2 PO (18:53)
[2020-12-17] MEDS ORDERED: LISI40TA4 PO (18:53)
[2020-12-17] MEDS ORDERED: AMLO1TAB25 PO (18:53)
[2020-12-17] MEDS ORDERED: FURO40TA2 PO (18:53)
[2020-12-17] MEDS ORDERED: ATOR80TA59 PO (18:53)
[2020-12-17] MEDS ORDERED: METO1TAB7 PO (18:53)
--- NOTE | 2020-12-17 19:24 | HPEPDOC ---
[facility] Medical History & Physical Date of Admission Dec 17, 2020 Date of Service: Dec 17, 2020 Attending Physician: TIMOTHY PHIPPS MD History and Physical TIME OF SERVICE 725PM CHIEF COMPLAINT: confusion HISTORY OF PRESENT ILLNESS: 's roommate called EMS bc he noticed that he was confused. At the time of my evaluation was alert but felt "all mixed up" about the events leading to his arrival in the hospital. He admitted to "seeing things" when he closed his eyes. He was not sure if he fell, thinks that he may have last drank alcohol yesterday, denied having chest pain or abdominal pain, but admitted to feeling dizzy. 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 HOME MEDICATIONS: Please see below. PHYSICAL EXAMINATION: Vital Signs Date Time Temp Pulse Resp B/P (MAP) Pulse Ox O2 Delivery O2 Flow Rate FiO2 12/17/20 15:17 202/98 (132) 12/17/20 15:20 67 98 12/17/20 15:50 96.5 16 12/17/20 16:05 Room Air GENERAL APPEARANCE: well nourished and developed/ NAD INTEGUMENT: not flushed or diaphoretic/ scar from old right elbow wound / bli ster on second right toe / ecchymosis around right eye and on left cheek HEENT: wears glasses / mucus membranes pink but dry CARDIOVASCULAR: RRR/NMRG / no LE edema LUNGS: CTAB on RA ABDOMEN: contour obese / soft & NT NEUROLOGICAL: CN 2-12 grossly intact /speech not dysarthric / he has asterixis PSYCHIATRIC: A&O to person and place but not time LABORATORY DATA: 12/17/20 15:10 Immature Granulocyte % (Auto) 0.7, Neutrophils (%) (Auto) 73.2H, Lymphocytes (%) (Auto) 16.5L, Monocytes (%) (Auto) 8.8H, Eosinophils (%) (Auto) 0.4, Basophils (%) (Auto) 0.4, Neutrophils # (Auto) 8.6H, Lymphocytes # (Auto) 1.9, Monocytes # (Auto) 1.0H, Eosinophils # (Auto) 0.1, Basophils # (Auto) 0.1, Nucleated Red Blo od Cells % (auto) 0.0, Blood Gas Bicarbonate Standard 20.0, Venous Blood pH 7.303L, Venous Blood Partial Pressure CO2 44.2, Venous Blood Partial Pressure O2 45.8, Venous Blood Total Carbon Dioxide 22.8L, Venous Blood HCO3 21.4L, Venous Blood Oxygen Saturation 78.5, Venous Blood Base Excess -4.9L, Anion Gap 10, Glomerular Filtration Rate 23.5L, Osmolality 334H, Lactic Acid Level 2.9*H, Calcium Level 8.7L, Total Bilirubin 1.9H, Direct Bilirubin 1.2H, Aspartate Amino Transf (AST/SGOT) 1266H, Alanine Aminotransferase (ALT/SGPT) 814H, Alkaline Phosphatase 133H, Ammonia 26, Total Creatine Kinase 54, Creatine Kinase MB 1.9, Creatine Kinase MB Relative Index 3.52, Troponin I < 0.02, Total Protein 7.7, Albumin 3.8, Albumin/Globulin Ratio 1.0, Thyroid Stimulating Hormone (TSH) 1.230, Ethyl Alcohol Level < 0.003 IMAGING: Chest xray "IMPRESSION: No active disease." CT head "IMPRESSION: Vascular calcification and generalized volume loss. No acute intracranial abnormality." CT abd/pelvis "IMPRESSION: 1. Minimal bibasilar fibro-atelectatic change, slightly increased since 12/10/2019. 2. Decreased height and/or wedge configuration of lower thoracic segments which appear to be chronic and are unchanged from the prior study. 3. Small nonobstructing left renal calculus which is unchanged. 4. Minimal layering faint stones or sludge in the gallbladder which are more evident since the prior study. 5. Otherwise negative noncontrast head CT." MICROBIOLOGY:Coronavirus (COVID-19)(PCR) NEGATIVE, Influenza Type A (RT-PCR) NEGATIVE, Influenza Type B (RT-PCR) NEGATIVE, Respiratory Syncytial Virus (PCR) NEGATIVE / Blood cx pending ASSESSMENT: is a 70 yr old w DM2 w neuropathy, Essential HTN, Paroxysmal Afib, DLP, Hypothyroidism, & Chronic neck pain who will be admitted for management and evaluation of Uncontrolled DM, HTN Urgency, FABIAN and Transaminitis. PLAN: 1 HTN Emergency He meets criteria to diagnose HTN Urgency bc his SPB is >180, he is feeling dizzy and has FABIAN The EKG didnt show acute ST changes, the trop was wnl and there was no mention of pulmonary edema on the chest xray report The acute elevation in his BP was likely triggered by noncompliance Plan: admit to ICU / will aim to lower BP by 25% w/in the first 2-4 hours with target BP of <160/100 / avoid excessive environmental stimuli / give Labetalol 200mg PO now / resume Amlodipine & Metoprolol ( ACEI and diuretic are on hold bc of FABIAN) will start hydralazine for now / low salt diet 2 FABIAN Acute elevation in CR is likely due to accelerated HTN Plan: monitor UOP / IVF / f/u UDS, CK, renal panel, Ulytes for FENa or FEUrea / renal US / hold nephrotoxic drugs (Lisinopril and Lasix) 3 Uncontrolled DM with neuropathy He is confused but not obtunded He despite the elevated glucose, high osmol and normal pH he doesnt quite meet the diagnostic criteria for HHS because his glucose <600 I suspect this was triggered by non-compliance Plan: admit to ICU pending repeat labs to confirm that he wont need an insulin drip / IVF / f/u blood cx, lipase, Troponin, A1C / f/u A1C, accuchecks, repeat BMP, osmol Mag & phosphorus / Pregabalin 4 Hyperkalemia Likely due to FABIAN The EKG didnt show peaked T waves Plan: he has received some insulin / will give Calcium gluconate now and f/u repeat BMP 5 Transaminitis Cause TBD The CT of the abdomen didnt mention cirrhosis. He denies abdominal pain therefore it is unlikely that he has alcoholic hepatitis. There was mention of sludge in the gallbladder. Plan: trend LFTs / f/u MIMI, acetaminophen levels, INR, PT, aPTT & hepatitis panel 6 Lactic acidosis Likely due to dehydration Plan: IVF / f/u repeat lactic acid & blood cx 7 Alcohol Abuse Plan: telemetry / seizure precautions / fall precautions / Ativan per CIWA protocol/ Thiamine 100mg daily, Folic acid 1mg daily, MVI / IVF 8 Right Eye Ecchymosis Possibly due to fall ? Plan: ice pack PRN 9 Paroxysmal ? Afib (per chart review) EKG didnt show Afib & he is not a DOAC Plan: telemetry 10 DLP Plan: statin 11 Hypothyroidism Plan: Levothyroxine 11 BPH Plan: Finasteride, Tamsulosin 12 Tobacco Abuse Plan: smoking cessation education/ nicotine patch DVT Px w Heparin Dispo: home after at least 2 midnights stay LATE ENTRY 916PM Repeat Glucose is in the 200s therefore I will resume his glargine 24 units daily Home Medications Scheduled Acamprosate Calcium (Acamprosate Calcium) 333 Mg Tablet.dr, 666 MG PO TID Amlodipine Besylate (Amlodipine Besylate) 10 Mg Tablet, 5 MG PO DAILY Aspirin (Aspirin EC) 81 Mg Tablet.dr, 81 MG PO DAILY Atorvastatin Calcium (Atorvastatin Calcium) 80 Mg Tablet, 80 MG PO QHS Budesonide/Formoterol (Symbicort 160-4.5 Mcg Inhaler) 6 Gm Hfa.aer.ad, 2 PUFF INH BID Cholecalciferol (Vitamin D3) (Vitamin D3) 1,000 Unit Tablet, 2,000 UNITS PO DAILY Cyanocobalamin (Vitamin B-12) (Vitamin B-12) 1,000 Mcg Tablet, 1,000 MCG PO DAILY Duloxetine Hcl (Duloxetine HCl) 20 Mg Capsule.dr, 40 MG PO DAILY Ferrous Gluconate (Ferrous Gluconate) 324 Mg Tablet, 324 MG PO DAILY Finasteride (Finasteride) 5 Mg Tablet, 5 MG PO DAILY Folic Acid (Folic Acid) 1 Mg Tablet, 1 MG PO DAILY Furosemide (Furosemide) 40 Mg Tablet, 40 MG PO DAILY Insulin Aspart (Insulin Aspart) 100 Unit/1 Ml Vial, 1 DOSE SC AC PER SLIDING SCALE Insulin Glargine,Hum.rec.anlog (Lantus Solostar) 100 Unit/1 Ml Insuln.pen, 24 UNITS SC DAILY Levothyroxine Sodium (Levothyroxine Sodium) 25 Mcg Tablet, 25 MCG PO DAILY Lisinopril (Lisinopril) 40 Mg Tablet, 20 MG PO DAILY Magnesium Oxide (Magnesium Oxide) 400 Mg Tablet, 400 MG PO BID Metoprolol Succinate (Metoprolol Succinate) 50 Mg Tab.er.24h, 25 MG PO DAILY Pregabalin (Lyrica) 300 Mg Capsule, 300 MG PO BID No122/Iron/Folic Acid ( Multi Tablet) 1 Each Tablet, 1 TAB PO DAILY Sod Phos Di, [place]/K Phos Cottonwood (K-Phos Neutral Tablet) 250 Mg Tablet, 250 MG PO DAILY Tamsulosin HCl (Flomax) 0.4 Mg Capsule, 0.4 MG PO DAILY Thiamine HCl (Vitamin B-1) 50 Mg Tablet, 50 MG PO DAILY Vitamin B Complex (Vitamin B Complex) 1 Each Tablet, 1 TAB PO DAILY Zolpidem Tartrate (Zolpidem Tartrate) 10 Mg Tablet, 10 MG PO QHS Scheduled PRN Acetaminophen (Acetaminophen) 500 Mg Tablet, 1,000 MG PO Q6H PRN for PAIN Nicotine Polacrilex (Nicotine Gum) 4 Mg Gum, 4 MG PO Q2H PRN for NICOTINE WITHDRAWAL Allergies Coded Allergies: No Known Allergies (Unverified , 02/25/19) A-FIB/CHADSVASC A-FIB History Current/History of A-Fib/PAF?: Yes Current PO Anticoag Therapy: No Treatment Other anticoagulant ordered: pending confirmation of the diagnosis TIMOTHY PHIPPS MD Dec 17, 2020 19:24
--- NOTE | 2020-12-17 19:35 | REPVR ---
PROCEDURE INFORMATION: Exam: CT Abdomen And Pelvis Without Contrast Exam date and time: 12/17/2020 6:26 PM Age: 70 years old Clinical indication: Abnormal findings; Abnormal lab test; Other: Elevated lfts TECHNIQUE: Imaging protocol: Computed tomography of the abdomen and pelvis without contrast. Radiation optimization: All CT scans at this facility use at least one of these dose optimization techniques: automated exposure control; mA and/or kV adjustment per patient size (includes targeted exams where dose is matched to clinical indication); or iterative reconstruction. COMPARISON: CT ABD PELVIS W/O FOL BY WIT 02/22/2020 8:31 PM FINDINGS: Lungs: Minimal bibasilar fibro-atelectatic change, greatest in the right lower lobe. Liver: Normal. No mass. Gallbladder and bile ducts: Minimal layering faint stones or sludge in the gallbladder. Pancreas: Normal. No ductal dilation. Spleen: Normal. No splenomegaly. Adrenal glands: Normal. No mass. Kidneys and ureters: Small nonobstructing left renal calculus in the lower pole. Stomach and bowel: Mobile cecum. Appendix: A normal appendix is seen. Intraperitoneal space: Unremarkable. No free air. No significant fluid collection. Vasculature: Incidental note of a retroaortic left renal vein. There is mild calcification of the abdominal aorta with extension into the iliac arteries. Lymph nodes: Unremarkable. No enlarged lymph nodes. Urinary bladder: Unremarkable as visualized. Reproductive: Unremarkable as visualized. Bones/joints: Old or healing fractures of multiple ribs bilaterally. Slightly decreased height and/or wedge configuration of lower thoracic segments from at least T9-T12 which appear to be chronic. Soft tissues: Unremarkable. IMPRESSION: 1. Minimal bibasilar fibro-atelectatic change, slightly increased since 12/10/2019. 2. Decreased height and/or wedge configuration of lower thoracic segments which appear to be chronic and are unchanged from the prior study. 3. Small nonobstructing left renal calculus which is unchanged. 4. Minimal layering faint stones or sludge in the gallbladder which are more evident since the prior study. 5. Otherwise negative noncontrast head CT. Findings were discussed with CALLIE HU at 12/17/2020 7:34 PM EDT. Electronically signed by: Leobardo Kurtz On 12/17/2020 19:34:55 PM
[2020-12-17 19:36] LABS: ACETONE/KETONE 1.54 MG/DL (<2.81)
[2020-12-17] MEDS ORDERED: MAALOX 30 ML SUSP *UDC PO PRN (19:45)
[2020-12-17] MEDS ORDERED: INSULIN IV RATE CHANGE DOCUMENTATION ML/HR XX SCH (19:45)
[2020-12-17] MEDS ORDERED: MOM 30ML SUSPENSION UDC PO PRN (19:45)
[2020-12-17] MEDS ORDERED: LABETALOL 200 MG TAB PO SCH (19:45)
[2020-12-17] MEDS ORDERED: ACETAMINOPHEN TAB 650MG DOSE (2X325MG) PO PRN (19:45)
[2020-12-17] MEDS ORDERED: INSULIN REGULAR IN 0.9 % NACL 100 UNIT in IV 1 EA IV SCH ×2 (19:45)
[2020-12-17] MEDS ORDERED: LORazepam 2 MG TAB PO PRN (19:45)
[2020-12-17 20:49] LABS: HEMOGLOBIN A1c 8.4 %
[2020-12-17 21:03] LABS: OSMOLALITY SERUM 317 MOSM/KG (280-301)
[2020-12-17] MEDS ORDERED: ONDANSETRON 4 MG TAB PO PRN (21:05)
[2020-12-17] MEDS ORDERED: DEXTROSE 50% 50 ML SYRINGE IV PRN (21:10)
[2020-12-17] MEDS ORDERED: GLUCOSE 4GM CHEW TABLET PO PRN (21:10)
[2020-12-17] MEDS ORDERED: GLUCAGON INJ 1MG VIAL SC PRN (21:10)
[2020-12-17 21:15] LABS: BLOOD UREA NITROGEN 91 MG/DL (7-18); CALCIUM LEVEL 8.8 MG/DL (8.8-10.2); CARBON DIOXIDE LEVEL 23 MEQ/L (21-32); CHLORIDE LEVEL 98 MEQ/L (98-107); CREATININE FOR GFR 2.65 MG/DL (0.70-1.30); GLOMERULAR FILTRATION RATE 25.6 (>49); GLUCOSE, FASTING 299 MG/DL (70-100); PHOSPHORUS LEVEL 4.7 MG/DL (2.5-4.9); POTASSIUM SERUM 5.3 MEQ/L (3.5-5.1); SODIUM LEVEL 129 MEQ/L (136-145); TROPONIN I 0.02 NG/ML (< 0.10)
[2020-12-17 21:23] LABS: URIC ACID 15.4 MG/DL (3.5-7.2)
[2020-12-17 21:33] VITALS: BP 168/78
[2020-12-17 21:40] LABS: ACETAMINOPHEN LEVEL < 2.0 UG/ML (10.0-30.0); BILIRUBIN,TOTAL 1.5 MG/DL (0.2-1.0); CPK CREATINE PHOSPHOKINASE 73 U/L (39-308)
[2020-12-17 22:00] VITALS: BP 152/71
[2020-12-17 22:52] LABS: AMPHETAMINES URINE REFLEX NEGATIVE (NEGATIVE); BARBITURATES URINE REFLEX NEGATIVE (NEGATIVE); BENZODIAZEPINES URINE REFLEX NEGATIVE (NEGATIVE); CANNABINOIDS URINE REFLEX NEGATIVE (NEGATIVE); COCAINE METABOLITE URINE REFLE NEGATIVE (NEGATIVE); METHADONE URINE REFLEX NEGATIVE (NEGATIVE); OPIATES URINE REFLEX NEGATIVE (NEGATIVE); PHENCYCLIDINE URINE REFLEX NEGATIVE (NEGATIVE)
[2020-12-17] MEDS: HEPARIN SOD (PORCINE) 5000UNITS/ML 1ML VIAL/SYRINGE SQ SCH (22:55)
[2020-12-17] MEDS: NS 1,000 ML IV SCH (22:55)
[2020-12-17] MEDS: ATORVASTATIN 20 MG TAB PO SCH (22:56)
[2020-12-17] MEDS: ACAMPROSATE CALCIUM 333 MG TABLET (CAMPRAL) PO SCH (22:56)
[2020-12-17] MEDS: PREGABALIN 100 MG CAP (LYRICA) PO SCH (22:57)
[2020-12-17] MEDS: THIAMINE 100 MG TAB PO SCH (22:57)
[2020-12-17] MEDS: NICOTINE 14 MG/24 HR TRANSDERMAL TD SCH (22:58)
[2020-12-18] VITALS (8 sets, daily range): BP systolic 124–173; BP diastolic 63–92
[2020-12-18] MEDS: HumaLOG INSULIN (NovoLOG) PER UNIT SC SCH ×5 (00:11→23:48)
[2020-12-18 00:16] LABS: INR 1.37; PROTHROMBIN TIME 17.2 SECONDS (12.5-14.3)
[2020-12-18 00:17] LABS: PARTIAL THROMBOPLASTIN TIME 34.7 SECONDS (24.2-38.5)
[2020-12-18 00:35] LABS: ALBUMIN 3.2 GM/DL (3.2-5.2); BILIRUBIN,TOTAL 1.5 MG/DL (0.2-1.0); CALCIUM LEVEL 8.2 MG/DL (8.8-10.2); CREATININE FOR GFR 2.77 MG/DL (0.70-1.30); GLOMERULAR FILTRATION RATE 24.3 (>49); POTASSIUM SERUM 5.1 MEQ/L (3.5-5.1); TOTAL PROTEIN 6.5 GM/DL (6.4-8.2)
[2020-12-18 04:18] LABS: MEAN CORPUSCULAR HEMOGLOBIN 23.1 pg (27.0-33.0); MEAN CORPUSCULAR HGB CONC 31.1 g/dl (32.0-36.5); MEAN CORPUSCULAR VOLUME 74.4 fl (80.0-96.0); PLATELET COUNT, AUTOMATED 110 10^3/uL (150-450); RED BLOOD COUNT 5.11 10^6/uL (4.30-6.10); WHITE BLOOD COUNT 11.2 10^3/uL (4.0-10.0)
[2020-12-18 04:20] LABS: HEMOGLOBIN 11.8 g/dl (13.5-17.5)
[2020-12-18] MEDS: NS 1,000 ML IV SCH ×4 (04:36→15:13)
[2020-12-18 04:41] LABS: CALCIUM LEVEL 7.7 MG/DL (8.8-10.2); CREATININE FOR GFR 2.23 MG/DL (0.70-1.30); GLOMERULAR FILTRATION RATE 31.3 (>49); POTASSIUM SERUM 4.4 MEQ/L (3.5-5.1)
[2020-12-18] MEDS: LEVOTHYROXINE 25MCG TABLET (0.025MG) PO SCH (05:13)
[2020-12-18] MEDS: HEPARIN SOD (PORCINE) 5000UNITS/ML 1ML VIAL/SYRINGE SQ SCH ×3 (05:13→21:08)
[2020-12-18] MEDS: SYMBICORT 160/4.5MCG INHALER 6GM INH SCH ×2 (07:31→19:11)
[2020-12-18] MEDS: FINASTERIDE 5 MG TAB PO SCH (08:48)
[2020-12-18] MEDS: ASPIRIN 81MG ENTERIC TABLET PO SCH (08:48)
[2020-12-18] MEDS: THIAMINE 100 MG TAB PO SCH ×2 (08:48→21:08)
[2020-12-18] MEDS: LEVEMIR (INSULIN DETEMIR) 1 UNITS/0.01ML SC SCH (08:48)
[2020-12-18] MEDS: FOLIC ACID 1 MG TAB PO SCH (08:48)
[2020-12-18] MEDS: ACAMPROSATE CALCIUM 333 MG TABLET (CAMPRAL) PO SCH ×3 (08:49→21:07)
[2020-12-18] MEDS: MULTIVITAMINS/MINERALS THERAP 1 TAB PO SCH (08:49)
[2020-12-18] MEDS: PREGABALIN 100 MG CAP (LYRICA) PO SCH ×2 (08:49→21:08)
[2020-12-18] MEDS: DULoxetine 20 MG CAP (CYMBALTA) PO SCH (08:50)
[2020-12-18] MEDS: VITAMIN D 1,000 INTERNATIONAL UNITS TABLET PO SCH (08:50)
[2020-12-18] MEDS: TAMSULOSIN 0.4 MG CAP PO SCH (08:50)
[2020-12-18] MEDS: METOPROLOL SUCC *XL* 25MG TAB (TopROL *XL*) PO SCH (09:00)
[2020-12-18] MEDS ORDERED: ENOXAPARIN 40MG/0.4ML SYRINGE (J1650 PER 10MG) SC SCH (09:00)
--- NOTE | 2020-12-18 09:20 | REP ---
INDICATION: Hypertension. R/O Renal Artery Stenosis. COMPARISON: Comparison renal sonography June 16, 2020. Comparison CT study December 17, 2020.. TECHNIQUE: Urinary tract sonography. Renal artery Doppler assessment. FINDINGS: Scanning at the level of the urinary bladder shows no abnormality. Renal cortical echogenicity pattern is normal bilaterally and contours are smooth. There is no evidence of hydronephrosis, cyst, mass, or calculus in either kidney. The right kidney measures 10.0 x 5.9 x 5.2 cm. Left renal dimensions are 10.7 x 4.3 x 5.5 cm. Doppler sonography: Peak systolic flow velocity in the abdominal aorta measured at the level of the main renal arteries is normal at 54.7 centimeters/second. Peak systolic flow velocity in the right main renal artery is normal measured at 60.1 centimeters/second and that in the left main renal artery also normal measured at 114.1 centimeters/second. Renal to aortic flow velocity ratios are normal bilaterally, 1.1 and 2.1 on the right and left respectively. Resistive indices and acceleration times are measured in the intralobar arteries of the upper, mid, and lower pole of each kidney. These values are slightly elevated bilaterally. This is nonspecific. IMPRESSION: Normal urinary tract sonography. There is no direct sonographic evidence of renal artery stenosis. Resistive indices and acceleration times are slightly elevated bilaterally and symmetrically.. This is nonspecific and can be seen in renal and cardiac dysfunction. <Electronically signed by Yomi Koch > 12/18/20 0916
--- NOTE | 2020-12-18 10:54 | IPNPDOC ---
Text Note Date of Service The patient was seen on 12/18/20. NOTE Subjective: Patient seen and examined at bedside. Patient has no new medical complaints this morning. He denies abdominal pain or right upper quadrant pain. No acute overnight events reported. Objective: Gen.: NAD, lying comfortably in bed HEENT: NC, EOMI, MMM, right infraorbital ecchymotic area Lungs: CTA B/L Heart: +S1S2, RRR, systolic murmur Abd: soft, NT, +BS, obese Ext: no edema Neuro: no gross focal deficits Pysch: AAOx3 A/P: 70 yo male with PMHx including DM2 w neuropathy, HTN, Paroxysmal Afib, DLP, Hypothyroidism, chronic neck pain, brought in for AMS, found to be in HTN emergency, FABIAN, transaminitis/hyperbilirubinemia, hyperglycemic. #HTN emergency - improving - receiving metoprolol (held for bradycardia), amlodipine; - home lasix, lisinopril on hold due to FABIAN - will hydralazine as needed - continue telemetry monitoring #FABIAN - improving - renal US pending report - UA +proteinuria, no UTI - nephrotoxic meds on hold #uncontrolled DM - hyperglycemia much improved, no anion gap, no ketonemia # Hyperkalemia - resolved #transaminitis/hyperbilirubinemia - appears to be improving - will add LFTs to am labs - no acute findings on CT A/P - hepatitis panel pending - will discuss with surgery #Lactic acidosis - resolved #EtOH abuse - states his last drink was a few days, states he will drink up to 2 pints kalie in a day, denies every going through withdrawal - was in rehab few years ago - seizure precautions, ativan per [facility] protocol - Thiamine 100mg daily, Folic acid 1mg daily, MVI #? Afib (per chart review) - not on anti-coagulation - currently sinus lea # DLP - statin #Hypothyroidism - Levothyroxine #BPH - Finasteride, Tamsulosin #Tobacco Abuse - nicotine replacement therapy #DVT Px - heparin SC Dispo: pending clinical improvement VS,Fishbone, I+O VS, Fishbone, I+O Laboratory Tests 12/17/20 15:10 12/17/20 20:22 12/17/20 23:54 12/18/20 04:03 Vital Signs Date Time Temp Pulse Resp B/P (MAP) Pulse Ox O2 Delivery O2 Flow Rate FiO2 12/18/20 09:00 51 12/18/20 08:51 173/79 12/18/20 08:39 96.8 20 96 Room Air I&O- Last 24 Hours up to 6 AM 12/18/20 06:00 Intake Total 860 ml Output Total 250 ml Balance 610 ml JOE WELSH MD Dec 18, 2020 10:54
[2020-12-18 12:05] LABS: ALBUMIN 2.8 GM/DL (3.2-5.2); BILIRUBIN,DIRECT 0.6 MG/DL (0.0-0.2); BILIRUBIN,TOTAL 1.2 MG/DL (0.2-1.0); TOTAL PROTEIN 5.7 GM/DL (6.4-8.2)
[2020-12-18 16:24] LABS: CALCIUM LEVEL 7.5 MG/DL (8.8-10.2); CK-MB VALUE MASS 2.1 NG/ML (<3.6); CREATININE FOR GFR 1.49 MG/DL (0.70-1.30); GLOMERULAR FILTRATION RATE 49.8 (>49); MB/CK RELATIVE INDEX 1.16 (< OR =4); POTASSIUM SERUM 4.8 MEQ/L (3.5-5.1); TROPONIN I 0.04 NG/ML (< 0.10)
[2020-12-18] MEDS ORDERED: **hydrALAZINE** 10 MG TAB PO PRN (19:40)
[2020-12-18] MEDS: NICOTINE 14 MG/24 HR TRANSDERMAL TD SCH (21:08)
[2020-12-18] MEDS: ATORVASTATIN 20 MG TAB PO SCH (21:08)
[2020-12-19] VITALS (8 sets, daily range): BP systolic 146–181; BP diastolic 70–90
[2020-12-19 05:24] LABS: BASO % 0.4 % (0.0-1.0); EOS # 0.5 10^3/uL (0.0-0.5); EOS % 7.6 % (0.0-3.0); HEMATOCRIT 37.1 % (42.0-52.0); HEMOGLOBIN 11.3 g/dl (13.5-17.5); LYMPH # 2.3 10^3/uL (1.5-5.0); LYMPH % 33.7 % (24.0-44.0); MEAN CORPUSCULAR HEMOGLOBIN 23.1 pg (27.0-33.0); MEAN CORPUSCULAR HGB CONC 30.5 g/dl (32.0-36.5); MEAN CORPUSCULAR VOLUME 75.9 fl (80.0-96.0); MONO # 0.7 10^3/uL (0.0-0.8); MONO % 9.9 % (2.0-8.0); NEUTROPHILS # 3.3 10^3/uL (1.5-8.5); NEUTROPHILS % 47.8 % (36.0-66.0); RED BLOOD COUNT 4.89 10^6/uL (4.30-6.10)
[2020-12-19] MEDS: LEVOTHYROXINE 25MCG TABLET (0.025MG) PO SCH (05:43)
[2020-12-19] MEDS: HEPARIN SOD (PORCINE) 5000UNITS/ML 1ML VIAL/SYRINGE SQ SCH ×2 (05:43→14:11)
[2020-12-19] MEDS: HumaLOG INSULIN (NovoLOG) PER UNIT SC SCH ×2 (05:47→11:50)
[2020-12-19 05:50] LABS: ALBUMIN 2.9 GM/DL (3.2-5.2); ALT/SGPT 306 U/L (12-78); BILIRUBIN,TOTAL 0.8 MG/DL (0.2-1.0); BLOOD UREA NITROGEN 37 MG/DL (7-18); CARBON DIOXIDE LEVEL 23 MEQ/L (21-32); CHLORIDE LEVEL 112 MEQ/L (98-107); CREATININE FOR GFR 1.01 MG/DL (0.70-1.30); GLOMERULAR FILTRATION RATE > 60.0 (>49); GLUCOSE, FASTING 89 MG/DL (70-100); MAGNESIUM LEVEL 1.7 MG/DL (1.8-2.4); PHOSPHORUS LEVEL 1.8 MG/DL (2.5-4.9); POTASSIUM SERUM 4.4 MEQ/L (3.5-5.1); SODIUM LEVEL 140 MEQ/L (136-145); TOTAL PROTEIN 5.7 GM/DL (6.4-8.2)
[2020-12-19 06:11] LABS: PLATELET COUNT, AUTOMATED 96 10^3/uL (150-450)
[2020-12-19] MEDS ORDERED: MAG SULF 1GM/100ML (MAG RUN) 1 GM in IV 1 EA IV ONE (06:30)
[2020-12-19] MEDS: SYMBICORT 160/4.5MCG INHALER 6GM INH SCH (08:00)
[2020-12-19] MEDS: MULTIVITAMINS/MINERALS THERAP 1 TAB PO SCH (08:34)
[2020-12-19] MEDS: ACAMPROSATE CALCIUM 333 MG TABLET (CAMPRAL) PO SCH (08:34)
[2020-12-19] MEDS: VITAMIN D 1,000 INTERNATIONAL UNITS TABLET PO SCH (08:35)
[2020-12-19] MEDS: PREGABALIN 100 MG CAP (LYRICA) PO SCH (08:35)
[2020-12-19] MEDS: FOLIC ACID 1 MG TAB PO SCH (08:35)
[2020-12-19] MEDS: DULoxetine 20 MG CAP (CYMBALTA) PO SCH (08:35)
[2020-12-19] MEDS: ASPIRIN 81MG ENTERIC TABLET PO SCH (08:35)
[2020-12-19] MEDS: FINASTERIDE 5 MG TAB PO SCH (08:36)
[2020-12-19] MEDS: METOPROLOL SUCC *XL* 25MG TAB (TopROL *XL*) PO SCH ×2 (08:36→10:14)
[2020-12-19] MEDS: THIAMINE 100 MG TAB PO SCH (08:36)
[2020-12-19] MEDS: LEVEMIR (INSULIN DETEMIR) 1 UNITS/0.01ML SC SCH (08:37)
[2020-12-19] MEDS: TAMSULOSIN 0.4 MG CAP PO SCH (08:51)
[2020-12-19 11:19] LABS: HEPATITIS B SURFACE ANTIGEN NEGATIVE (NEGATIVE)
[2020-12-19 11:46] LABS: HEPATITIS C VIRUS ABY INDEX < 0.0 INDEX (<0.8)
[2020-12-19 11:48] LABS: HEPATITIS B CORE ANTIBODY IGM NEGATIVE (NEGATIVE)
[2020-12-19 11:49] LABS: HEPATITIS A ANTIBODY IGM NEGATIVE (NEGATIVE)
--- NOTE | 2020-12-19 16:38 | ECGEPIP ---
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
[2020-12-19] MEDS ORDERED: HumaLOG INSULIN (NovoLOG) PER UNIT SC SCH ×2 (17:30→21:00)
--- NOTE | 2020-12-19 23:01 | DS.PDOC ---
Discharge Summary General Date of Admission Dec 17, 2020 at 19:41 Date of Discharge 12/19/2020 Discharge Summary PROCEDURES PERFORMED DURING STAY: [None]. DISCHARGE DIAGNOSES: #HTN emergency #FABIAN #uncontrolled DM # Hyperkalemia #transaminitis/hyperbilirubinemia #Lactic acidosis #EtOH abuse #? Afib (per chart review) # DLP #Hypothyroidism #BPH #Tobacco Abuse COMPLICATIONS/CHIEF COMPLAINT: Hyperosmolar Hyperglycemic State. HPI/Hospital Course: 70 yo male with PMHx including DM2 w neuropathy, HTN, Paroxysmal Afib, DLP, Hypothyroidism, chronic neck pain, brought in for AMS, found to be in HTN emergency, FABIAN, transaminitis/hyperbilirubinemia, hyperglycemic. Significant improvement with IV fluids and holding home nephrotoxic medications (lasix, ACEI). Imaging including CT abd/pelvis unrevealing. Etiology deemed secondary to dehydration, poor oral intake, alcohol abuse. Hospital stay significant for elevated blood pressures, likely to holding his home meds and IV fluids. ACEI resumed and patient discharged home in stable condition with outpatient follow up. DISCHARGE MEDICATIONS: Please see below. ALLERGIES: Please see below. PHYSICAL EXAMINATION ON DISCHARGE: VITAL SIGNS: Please see below. Gen.: NAD, lying comfortably in bed HEENT: NC, EOMI, MMM, right infraorbital ecchymotic area Lungs: CTA B/L Heart: +S1S2, RRR, systolic murmur Abd: soft, NT, +BS, obese Ext: no edema Neuro: no gross focal deficits Pysch: AAOx3 LABORATORY DATA: Please see below. ACTIVITY: [As tolerated]. DISPOSITION: 01 Home, Self-Care. DISCHARGE INSTRUCTIONS: 1. Follow up with PCP in 3-5 days 2. Stop alcohol abuse. 3. Stop smoking. DISCHARGE CONDITION: [Stable]. TIME SPENT ON DISCHARGE: 35 minutes. Vital Signs/I&Os Vital Signs Date Time Temp Pulse Resp B/P (MAP) Pulse Ox O2 Delivery O2 Flow Rate FiO2 12/19/20 14:00 60 18 146/70 (95) 97 Room Air 12/19/20 12:00 98.0 I&O- Last 24 Hours up to 6 AM 12/19/20 06:00 Intake Total 4695 ml Output Total 1120 ml Balance 3575 ml Laboratory Data Labs 24H Laboratory Tests 2 12/18/20 23:45: Bedside Glucose (Misc Panel) 97 12/19/20 05:10: Immature Granulocyte % (Auto) 0.6, Neutrophils (%) (Auto) 47.8, Lymphocytes (%) (Auto) 33.7, Monocytes (%) (Auto) 9.9H, Eosinophils (%) (Auto) 7.6H, Basophils (%) (Auto) 0.4, Neutrophils # (Auto) 3.3, Lymphocytes # (Auto) 2.3, Monocytes # (Auto) 0.7, Eosinophils # (Auto) 0.5, Basophils # (Auto) 0.0, Nucleated Red Blood Cells % (auto) 0.0, Immature Platelet Fraction 6.9, Anion Gap 5L, Glomerular Filtration Rate > 60.0, Calcium Level 8.0L, Phosphorus Level 1.8#L, Magnesium Level 1.7L, Total Bilirubin 0.8, Aspartate Amino Transf (AST/SGOT) 288 H, Alanine Aminotransferase (ALT/SGPT) 306H, Alkaline Phosphatase 135H, Total Protein 5.7L, Albumin 2.9L, Albumin/Globulin Ratio 1.0 12/19/20 05:42: Bedside Glucose (Misc Panel) 103 12/19/20 08:47: Bedside Glucose (Misc Panel) 192H 12/19/20 11:43: Bedside Glucose (Misc Panel) 259H CBC/BMP Laboratory Tests 12/19/20 05:10 FSBS Laboratory Tests Test 12/18/20 23:45 12/19/20 05:42 12/19/20 08:47 12/19/20 11:43 Range/Units Bedside Glucose (Misc Panel) 97 103 192 259 80-115 MG/DL Microbiology Microbiology 12/17/20 Blood Culture - Preliminary, Resulted No Growth after 48 hours. All Specime... 12/17/20 Blood Culture - Preliminary, Resulted No Growth after 48 hours. All Specime... Discharge Medications Scheduled Acamprosate Calcium (Acamprosate Calcium) 333 Mg Tablet.dr, 666 MG PO TID, (Reported) Amlodipine Besylate (Amlodipine Besylate) 10 Mg Tablet, 5 MG PO DAILY, (Reported) Aspirin (Aspirin EC) 81 Mg Tablet.dr, 81 MG PO DAILY, (Reported) Atorvastatin Calcium (Atorvastatin Calcium) 80 Mg Tablet, 80 MG PO QHS, (Reported) Budesonide/Formoterol (Symbicort 160-4.5 Mcg Inhaler) 6 Gm Hfa.aer.ad, 2 PUFF INH BID, (Reported) Cholecalciferol (Vitamin D3) (Vitamin D3) 1,000 Unit Tablet, 2,000 UNITS PO DAILY, (Reported) Cyanocobalamin (Vitamin B-12) (Vitamin B-12) 1,000 Mcg Tablet, 1,000 MCG PO DAILY, (Reported) Duloxetine Hcl (Duloxetine HCl) 20 Mg Capsule.dr, 40 MG PO DAILY, (Reported) Ferrous Gluconate (Ferrous Gluconate) 324 Mg Tablet, 324 MG PO DAILY, (Reported) Finasteride (Finasteride) 5 Mg Tablet, 5 MG PO DAILY, (Reported) Folic Acid (Folic Acid) 1 Mg Tablet, 1 MG PO DAILY, (Reported) Insulin Aspart (Insulin Aspart) 100 Unit/1 Ml Vial, 1 DOSE SC AC, (Reported) PER SLIDING SCALE Insulin Glargine,Hum.rec.anlog (Lantus Solostar) 100 Unit/1 Ml Insuln.pen, 24 UNITS SC DAILY, (Reported) Levothyroxine Sodium (Levothyroxine Sodium) 25 Mcg Tablet, 25 MCG PO DAILY, (Reported) Lisinopril (Lisinopril) 40 Mg Tablet, 20 MG PO DAILY, (Reported) Magnesium Oxide (Magnesium Oxide) 400 Mg Tablet, 400 MG PO BID, (Reported) Metoprolol Succinate (Metoprolol Succinate) 50 Mg Tab.er.24h, 25 MG PO DAILY, (Reported) Pregabalin (Lyrica) 300 Mg Capsule, 300 MG PO BID, (Reported) No122/Iron/Folic Acid ( Multi Tablet) 1 Each Tablet, 1 TAB PO DAILY, (Reported) Sod Phos Di, [place]/K Phos [place] (K-Phos Neutral Tablet) 250 Mg Tablet, 250 MG PO DAILY, (Reported) Tamsulosin HCl (Flomax) 0.4 Mg Capsule, 0.4 MG PO DAILY, (Reported) Thiamine HCl (Vitamin B-1) 50 Mg Tablet, 50 MG PO DAILY, (Reported) Vitamin B Complex (Vitamin B Complex) 1 Each Tablet, 1 TAB PO DAILY, (Reported) Zolpidem Tartrate (Zolpidem Tartrate) 10 Mg Tablet, 10 MG PO QHS, (Reported) Scheduled PRN Acetaminophen (Acetaminophen) 500 Mg Tablet, 1,000 MG PO Q6H PRN for PAIN, (Reported) Nicotine Polacrilex (Nicotine Gum) 4 Mg Gum, 4 MG PO Q2H PRN for NICOTINE WITHDRAWAL, (Reported) Allergies Coded Allergies: No Known Allergies (Unverified , 02/25/19) JOE WELSH MD Dec 19, 2020 23:01
[2020-12-20 13:10] LABS: ANTI DOUBLE STRAND-DNA AB 2 IU/mL (0-9); ANTINUCLEAR ANTIBODIES DIRECT Positive (Negative); RNP ANTIBODIES 0.2 AI (0.0-0.9); SJOGREN'S ANTI SS-A <0.2 AI (0.0-0.9); SJOGREN'S ANTI SS-B 0.7 AI (0.0-0.9); SMITH ANTIBODIES <0.2 AI (0.0-0.9)
== END 2020-12-19 15:57 | disposition home or self-care (01) | DRG 683 ==
LOC: M ED 16:20 → M ED INP 19:41 → ENRESERV 20:17 → M ICU 21:20
PROVIDERS: ADMIT Internal Medicine; ATTEND Internal Medicine
DX: N17.9 Acute kidney failure, unspecified (principal); I16.1 Hypertensive emergency; E87.2 Acidosis; R17 Unspecified jaundice; E11.42 Type 2 diabetes mellitus with diabetic polyneuropathy; I10 Essential (primary) hypertension; N40.0 Benign prostatic hyperplasia without lower urinary tract symptoms; I48.0 Paroxysmal atrial fibrillation; E78.5 Hyperlipidemia, unspecified; M54.2 Cervicalgia; Z89.411 Acquired absence of right great toe; Z90.49 Acquired absence of other specified parts of digestive tract; F17.210 Nicotine dependence, cigarettes, uncomplicated; F10.10 Alcohol abuse, uncomplicated; Z20.822 Contact with and (suspected) exposure to COVID-19; E11.65 Type 2 diabetes mellitus with hyperglycemia; E87.5 Hyperkalemia; R74.01 Elevation of levels of liver transaminase levels; S00.11XA Contusion of right eyelid and periocular area, initial encounter; X58.XXXA Exposure to other specified factors, initial encounter; Y92.9 Unspecified place or not applicable; E03.9 Hypothyroidism, unspecified; Z79.01 Long term (current) use of anticoagulants; Z79.4 Long term (current) use of insulin; Z79.899 Other long term (current) drug therapy

== ENCOUNTER → 2020-12-28 | Outpatient (REF) | payer MEDICARE, OTHER ==
[~2020-12-28] MED LIST changes: +FURO40TA2 PO; +METO1TAB7 PO; +OMEP40CA4 PO; -OMEP40CA97 PO
[2020-12-28 09:49] LABS: HEMATOCRIT 39.9 % (42.0-52.0); HEMOGLOBIN 12.1 g/dl (13.5-17.5); MEAN CORPUSCULAR HEMOGLOBIN 24.2 pg (27.0-33.0); MEAN CORPUSCULAR HGB CONC 30.3 g/dl (32.0-36.5); MEAN CORPUSCULAR VOLUME 79.8 fl (80.0-96.0); PLATELET COUNT, AUTOMATED 265 10^3/uL (150-450); WHITE BLOOD COUNT 9.7 10^3/uL (4.0-10.0)
[2020-12-28 10:00] LABS: INR 1.02; PROTHROMBIN TIME 13.6 SECONDS (12.5-14.3)
[2020-12-28 10:09] LABS: HEMOGLOBIN A1c 8.2 %
[2020-12-28 10:12] LABS: ALBUMIN 3.4 GM/DL (3.2-5.2); ALT/SGPT 44 U/L (12-78); BILIRUBIN,TOTAL 0.4 MG/DL (0.2-1.0); BLOOD UREA NITROGEN 19 MG/DL (7-18); CALCIUM LEVEL 9.5 MG/DL (8.8-10.2); CARBON DIOXIDE LEVEL 28 MEQ/L (21-32); CHLORIDE LEVEL 107 MEQ/L (98-107); CREATININE FOR GFR 0.89 MG/DL (0.70-1.30); GLOMERULAR FILTRATION RATE > 60.0 (>49); GLUCOSE, FASTING 147 MG/DL (70-100); POTASSIUM SERUM 4.5 MEQ/L (3.5-5.1); SODIUM LEVEL 139 MEQ/L (136-145)
== END ==
LOC: M LAB 09:01 → EDSTATUS 01-23 14:19
PROVIDERS: ATTEND Nurse Practitioner Primary Care
DX: D64.9 Anemia, unspecified (principal); I25.10 Atherosclerotic heart disease of native coronary artery without angina pectoris; E10.9 Type 1 diabetes mellitus without complications; E78.5 Hyperlipidemia, unspecified; I10 Essential (primary) hypertension

== ENCOUNTER → 2021-02-09 | Outpatient (CLI) | payer OTHER, MEDICARE ==
--- NOTE | 2021-02-09 23:07 | ECWPNPC ---
PATIENT NAME: CATALINA YEUNG : 1950 GENDER: MALE VISIT DATE: 02/09/2021 DISCHARGE DATE: 02/09/21 1108 VISIT LOCKED DATE TIME: PHYSICIAN: TATUM PULIDO RESOURCE: TATUM PULIDO REASON FOR APPOINTMENT 1. LOW BACK PAIN, NECK PAIN HISTORY OF PRESENT ILLNESS GENERAL: HERE FOR FOLLOW-UP OF CHRONIC LOW BACK PAIN. PAIN IS BEGINNING TO RETURN. FINDING IT DIFFICULT TO TOLERATE STANDING OR DOING ANY OF HIS USUAL ACTIVITIES AROUND THE HOME DUE TO LOW BACK PAIN. HAS NO PAIN AT REST. HAS RESPONDED WELL TO LUMBAR THERAPEUTIC BLOCK IN THE PAST. DISCUSSED RADIOFREQUENCY AND DIAGNOSTIC TESTING FOR RADIOFREQUENCY. -. FALL RISK SCREENING: SCREENING : NO FALLS REPORTED IN THE LAST YEAR. PAIN SCREENING: PATIENT HAS A COMPLAINT OF ACUTE OR CHRONIC PAIN :YES LOCATION OF PAIN:LOW BACK INTENSITY OF PAIN (SCALE OF 1 TO 10):0 WHAT DOES YOUR PAIN FEEL LIKE:OTHER NOT IN ANY PAIN RIGHT NOW, BECAUSE HE IS SITTING DOWN DURATION:ONLY WITH SPECIFIC ACTIVITIES, INTERMITTENT PAIN IS INCREASED BY:ACTIVITIES, PROLONGED STANDING PAIN IS DECREASED BY:SITTING NURSING NOTE: -. PAIN CENTER INTAKE QUESTIONS: DO YOU HAVE A HISTORY OF MRSA? :YES 2018 HAD AN INFECTION IN HIS BIG TOE DO YOU TAKE A BLOOD THINNERS? :NO DO YOU HAVE ANY BLEEDING DISORDERS? :NO WAS IN THE PAST ANY NEW NUMBNESS OR WEAKNESS IN YOUR LEGS OR ARMS? :NO ANY PACEMAKER,DEFIBRILLATOR, OR DORSAL COLUMN STIMULATOR? :NO DO YOU HAVE ANY RASHES OR OPEN SORES? :NO ARE YOU ALLERGIC TO IV DYE? :NO ARE YOU DIABETIC? :YES TYPE 2 ANY NEW PROBLEMS WITH YOUR MEDICATIONS? :NO HAVE YOU RECEIVED A VACCINE IN THE PAST 30 DAYS? :YES IF SO WHAT VACCINE AND WHEN? 2ND DOSE OF COVID 10/09/2020 DO YOU PLAN TO RECEIVE A VACCINE IN THE NEXT 21 DAYS? :NO DO YOU NEED ANY PRESCRIPTION? :NO DO YOU TAKE ANY IMMUNOSUPPRESSIVE MEDICATIONS? :NO DO YOU HAVE ANY KIDNEY OR LIVER DISEASE? :NO IS THERE A CHANCE YOU COULD BE ? :NO ARE YOU BREAST FEEDING? :NO CURRENT MEDICATIONS TAKING ALBUTEROL SULFATE (SENSOR) 108 (90 BASE) MCG/ACT AEROSOL POWDER BREATH ACTIVATED 1 PUFF NEEDED INHALATION EVERY 4 HRS TAKING CROMOLYN SODIUM 5.2 MG/ACT AEROSOL SOLUTION 1 SPRAY IN EACH NOSTRIL NASALLY EVERY 6 HOURS NEEDED FOR BREATHING TAKING ALLEVYN DRESSING [employer] LIFE 4X4 APPLY TOPICALLY DIRECTED CHANGE 3 TIMES PER WEEK TAKING FERROUS SULFATE 325 MG CAPSULE 1 TABLET ORALLY ONCE A DAY TAKING MAY USE GLUCOSE SENSOR FREESTYLE USE DIRECTED TAKING HYDROPHILIC - OINTMENT DIRECTED EXTERNALLY APPLY MODERATE AMOUNT TOPICALLY BID TO SKIN TAKING INSULIN ASPART 100 UNIT/ML SOLUTION PEN-INJECTOR DIRECTED SUBCUTANEOUS BERNABE FLEXPEN 3 ML TID BEFORE MEALS TAKING INSULIN GLARGINE 100 UNIT/ML SOLUTION DIRECTED SUBCUTANEOUS INJECT 24 UNITS EVERY DAY TAKING LANCETS USE ONE TOPICALLY EVERY OTHER DAY FOR BLOOD GLUCOSE TESTING TAKING LEVOTHYROXINE SODIUM 25 MCG TABLET 1 TABLET IN THE MORNING ON AN EMPTY STOMACH ORALLY ONCE A DAY TAKING METOPROLOL SUCCINATE 50 MG TABLET EXTENDED RELEASE ONE HALF TAB ORALLY ONCE A DAY TAKING MULTIVITAMIN - TABLET 1 TABLET ORALLY ONCE A DAY TAKING MAY USE NEEDLE SUBCUTANEOUSLY DIRECTED TAKING MAY USE POTASSIUM NITRATE 5% LAURA APPLY 1 STRIP TO TEETH AT HS, BRUDH FOR 1 MIN [place], THEN EXPECTORATE, NPO FOR 1/2 HOUR THEN RINSE TAKING ACAMPROSATE CALCIUM 333 MG TABLET DELAYED RELEASE 2 TABLETS ORALLY THREE TIMES A DAY TAKING ACETAMINOPHEN 500 MG CAPSULE 2 CAPSULE NEEDED FOR PAIN ORALLY EVERY 6 HRS TAKING ATORVASTATIN CALCIUM 80 MG TABLET 1/2 TABLET ORALLY ONCE A DAY TAKING BUDESONIDE-FORMOTEROL FUMARATE 160-4.5 MCG/ACT AEROSOL 2 PUFFS INHALATION TWICE A DAY TAKING CHOLECALCIFEROL 25 MCG (1000 UT) CAPSULE 2 CAPSULE ORALLY ONCE A DAY TAKING CLINDAMYCIN PHOSPHATE 1 % SOLUTION 1 APPLICATION EXTERNALLY TWICE A DAY TAKING CYANOCOBALAMIN 1000 MCG TABLET 1 TABLET ORALLY ONCE A DAY TAKING DULOXETINE HCL 20 MG CAPSULE DELAYED RELEASE PARTICLES 2 CAPSULE ORALLY DAILY TAKING FINASTERIDE 5 MG TABLET 1 TABLET ORALLY ONCE A DAY TAKING FOLIC ACID 1 MG TABLET 1 TABLET ORALLY ONCE A DAY TAKING K PHOS MONO-SOD PHOS DI & MONO 155-852-130 MG TABLET 1 TABLET ORALLY DAILY TAKING LACTULOSE 10 GM/15ML SYRUP 15 ML ORALLY TWICE DAILY TAKING LISINOPRIL 40 MG TABLET 1/2 TABLET ORALLY ONCE A DAY TAKING MAGNESIUM OXIDE 400 MG TABLET 1 TABLET ORALLY TWICE DAILY TAKING NICOTINE 4 MG GUM 1 PIECE FOR 30 MINUTE NEEDED MOUTH/THROAT TAKING PANTOPRAZOLE SODIUM 20 MG TABLET DELAYED RELEASE 1 TABLET ORALLY TWICE DAILY TAKING TAMSULOSIN HCL 0.4 MG CAPSULE 1 CAPSULE ORALLY ONCE A DAY TAKING THIAMINE 50 MG CAPSULE 1 CAP ORALLY ONCE A DAY TAKING VITAMIN B COMPLEX - TABLET 1 TAB ORALLY DAILY TAKING ZOLPIDEM TARTRATE 10 MG TABLET 1 TABLET AT BEDTIME ORALLY ONCE A DAY TAKING AMLODIPINE BESYLATE 10 MG TABLET 1/2 TABLET ORALLY ONCE A DAY TAKING FERROUS GLUCONATE 324 (38 FE) MG TABLET 1 TABLET WITH WATER OR JUICE BETWEEN MEALS ORALLY ONCE A DAY TAKING ASPIR-LOW 81 MG TABLET DELAYED RELEASE 1 TABLET ORALLY ONCE A DAY NOT-TAKING PREGABALIN 300 MG CAPSULE 1 CAPSULE ORALLY TWICE DAILY NOT-TAKING MELATONIN 3 MG TABLET 1 TABLET AT BEDTIME NEEDED ORALLY ONCE A DAY NOT-TAKING AMLODIPINE BESYLATE 2.5 MG TABLET 3 TABLETS ORALLY ONCE A DAY NOT-TAKING AMOXICILLIN-POT CLAVULANATE 875-125 MG TABLET 1 TABLET ORALLY EVERY 12 HRS NOT-TAKING NOVOLOG FLEXPEN 100 UNIT/ML SOLUTION DIRECTED SUBCUTANEOUS THREE TIMES PER DAY MEDICATION LIST REVIEWED AND RECONCILED WITH THE PATIENT PAST MEDICAL HISTORY DM II HTN A-FIB HIGH CHOLESTEROL NECK PAIN ALLERGIES NO[ALLERGIES VERIFIED] SOCIAL HISTORY GENERAL: TOBACCO USE ARE YOU A:CURRENT SMOKER ARE YOU INTERESTED IN QUITTING?THINKING ABOUT QUITTING PREVIOUS QUIT ATTEMPTS?YES, MORE THAN 6 MONTHS AGO. COUNSELED THE PATIENT ON SMOKING CESSATION, EDUCATION [id number]/05/2021 HOW MANY CIGARETTES A DAY DO YOU SMOKE?11-20 HOW SOON AFTER YOU WAKE UP DO YOU SMOKE YOUR FIRST CIGARETTE?6-30 MIN VAPORNO E-CIGARETTENO LATEX QUESTIONNAIRE LATEX ALLERGY : HAVE YOU EVER DEVELOPED ANY TYPE OF REACTION AFTER HANDLING LATEX PRODUCTS SUCH RUBBER GLOVES, CONDOMS, DIAPHRAGMS, BALLOONS, SOCKS, OR UNDERWEAR?NO LATEX ALLERGY : HAVE YOU EVER DEVELOPED ANY TYPE OF REACTION DURING OR AFTER DENTAL APPOINTMENT, VAGINAL/RECTAL EXAMINATION, SURGICAL PROCEDURE, OR ANY OTHER EXPOSURE?NO LATEX RISK : HAVE YOU EVER HAD ANY DIFFICULTY BREATHING OR HIVES AFTER EATING OR HANDLING ANY FRUITS, OR VEGETABLES; SUCH KIWI, BANANAS, STONE FRUITS, OR CHESTNUTSNO LATEX RISK : DO YOU HAVE A PREVIOUS PERSONAL HISTORY OF MORE THAN NINE SURGERIES, SPINA BIFIDA, OR REPEATED CATHERIZATIONS? NO LATEX RISK : ARE YOU FREQUENTLY EXPOSED TO LATEX PRODUCTS IN YOUR OCCUPATION?NO DATE ASKED : 02/09/2021 ALCOHOL USE: NO. ALCOHOL SCREENING DID YOU HAVE A DRINK CONTAINING ALCOHOL IN THE PAST YEAR?NO POINTS0 INTERPRETATIONNEGATIVE RECREATIONAL DRUG USE DRUG USE?NO CAFFEINE CAFFEINE USE?YES HOW OFTEN AND HOW MUCH? 2 CUPS OF COFFEE DAILY ALEVISM ALEVISM NO RASTAFARI BELIEFS THAT WOULD IMPACT HEALTH CARE. 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 DIET: CARBOHYDRATE CONTROLLED. EXERCISE: NONE. MARITAL STATUS: SINGLE. OTHERS AT HOME: NONE. REVIEW OF SYSTEMS CONSTITUTIONAL: ANY RECENT FEVER NO . CHILLS NO . WEIGHT CHANGE OF UNKNOWN REASONS NO . GASTROENTEROLOGY: NEW UNEXPLAINABLE CHANGES IN BOWEL CONTROL NO . CONSTIPATION NO . GENITOURINARY: ANY NEW CHANGE IN BLADDER CONTROL? NO . NEUROLOGY: NEW ONSET DIZZINESS OR NEUROLOGICAL CHANGES NOT MENTIONED NO . NEW NUMBNESS OR PAIN PATTERNS NOT MENTIONED AND PERTINENT TO TODAY'S VISIT NO . CARDIOLOGY: NEW CHEST PRESSURE NO . PATIENT DENIES NO . RESPIRATORY: UNEXPLAINABLE COUGH NO . NEW SHORTNESS OF BREATH NO . VITAL SIGNS WT 204.4 LBS, WT-KG 92.72 KG, HT 73 IN, BMI 26.96 INDEX, BP 151/73 MM HG, HR 60 /MIN, RR 18 /MIN, TEMP 96.5 F, OXYGEN SAT % 96%, SAFE IN ENV? (Y/N) YES, NA INITIALS AW 1018T.LEIDA PAREKH. EXAMINATION GENERAL EXAMINATION: GENERAL AWAKE,ALERT ,PLEASANT . PSYCH AFFECT NORMAL . LUNGS: LUNG AMES ARE CLEAR TO AUSCULTATION BILATERALLY. GOOD MOVEMENT OF AIR . HEART: S1, S2 IN A REGULAR RATE AND RHYTHM. NO SIGNIFICANT MURMURS, RUBS OR GALLOPS NOTED . LUMBAR: PALPATION: + FOR PAIN OVER L/S SPINE. + FOR PAIN OVER L/S PARASPINALS SPECIFIC POINT TENDERNESS OVER LUMBAR FACETS WITH FACET LOADING. NEUROLOGIC EXAM: NORMAL SENSATION LIGHT TOUCH BILAT. LOWER EXTREMITIES . DIAGNOSTIC TESTS REVIEWED MRI L/S SPINE-09/02/20. 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 VISIT CODES 80990 OFFICE VISIT, EST PT., LEVEL 3. PROCEDURE CODES FA211 ESTABILISHED PATIENT [facility] FACILITY CHARGE DISPOSITION & COMMUNICATION FOLLOW UP POST (REASON: BILATERAL DIAGNOSTIC LUMBAR FACET BLOCK L3-4,L4-5) ELECTRONICALLY SIGNED BY NICCI RICO ON 02/09/2021 AT 01:38 PM EDT DISCLAIMER : THIS IS A VISIT SUMMARY EXTRACTED FROM THE [employer] CHART. IT IS NOT A COPY OF THE [employer] PROGRESS NOTE. BLAKE
== END ==
LOC: M PAIN 10:15
PROVIDERS: ATTEND Nurse Practitioner Family
DX: M47.816 Spondylosis without myelopathy or radiculopathy, lumbar region (principal); E11.9 Type 2 diabetes mellitus without complications; I10 Essential (primary) hypertension; I48.91 Unspecified atrial fibrillation; E78.00 Pure hypercholesterolemia, unspecified; M54.2 Cervicalgia; F17.210 Nicotine dependence, cigarettes, uncomplicated; Z79.4 Long term (current) use of insulin; Z79.899 Other long term (current) drug therapy

== ENCOUNTER 2021-03-21 11:15 | Emergency (ER) | payer MEDICARE, OTHER, BC ==
[~2021-03-21] VITALS: Ht 180.3 cm; Wt 92.0 kg
--- NOTE | 2021-03-21 12:40 | REP ---
INDICATION: L shoulder pain COMPARISON: 02/26/2020. TECHNIQUE: Three views left shoulder. FINDINGS: There is an old ununited fracture of the proximal left humerus. There old healed left rib fractures. There are no definite acute findings. 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 Old healed left rib fractures. <Electronically signed by Heath White > 03/21/21 [id number]
[2021-03-21] MEDS ORDERED: KETOROLAC 60MG 2ML VIAL IM ONE (17:35)
[2021-03-21 17:59] VITALS: BP 162/96
== END 2021-03-21 18:00 | disposition home or self-care (01) ==
LOC: M ED 11:15
DX: S42.202G Unspecified fracture of upper end of left humerus, subsequent encounter for fracture with delayed healing (principal); X58.XXXD Exposure to other specified factors, subsequent encounter; Y92.89 Other specified places as the place of occurrence of the external cause; I11.0 Hypertensive heart disease with heart failure; I50.9 Heart failure, unspecified; E11.9 Type 2 diabetes mellitus without complications; G62.9 Polyneuropathy, unspecified; E03.9 Hypothyroidism, unspecified; N40.0 Benign prostatic hyperplasia without lower urinary tract symptoms; F33.9 Major depressive disorder, recurrent, unspecified; F10.10 Alcohol abuse, uncomplicated; Z79.82 Long term (current) use of aspirin
CPT/HCPCS: 73030; 96372; 99283; J1885

== ENCOUNTER 2021-08-07 14:29 | Emergency (ER) | payer MEDICARE, OTHER, BC ==
[~2021-08-07] VITALS: Ht 180.3 cm; Wt 96.8 kg
[2021-08-07 14:29] VITALS: BP 130/63
[~2021-08-07 14:29] MED LIST changes: -FLUC100T PO; +FLUC100T3 PO; +OMEP-173 PO; -OMEP-218 PO; -OMEP-221 PO; +OMEP40CA5 PO
== END 2021-08-07 16:57 | disposition home or self-care (01) ==
LOC: M ED 14:29
DX: S66.911A Strain of unspecified muscle, fascia and tendon at wrist and hand level, right hand, initial encounter (principal); S66.912A Strain of unspecified muscle, fascia and tendon at wrist and hand level, left hand, initial encounter; W01.0XXA Fall on same level from slipping, tripping and stumbling without subsequent striking against object, initial encounter; Y92.018 Other place in single-family (private) house as the place of occurrence of the external cause; I10 Essential (primary) hypertension; E10.9 Type 1 diabetes mellitus without complications; Z79.4 Long term (current) use of insulin; Z79.899 Other long term (current) drug therapy; Z79.82 Long term (current) use of aspirin; F17.210 Nicotine dependence, cigarettes, uncomplicated

== ENCOUNTER → 2021-11-12 | Outpatient (CLI) | payer OTHER ==
[~2021-11-12] MED LIST changes: -D31000TA2 PO; +VITA100093 PO
== END ==
LOC: M SLEEP 20:00
PROVIDERS: ATTEND Nurse Practitioner Acute Care
DX: G47.33 Obstructive sleep apnea (adult) (pediatric) (principal)

== ENCOUNTER 2021-12-23 07:25 | Emergency (ER) | payer MEDICARE, BC, OTHER ==
[~2021-12-23] VITALS: Ht 180.3 cm; Wt 90.9 kg
[2021-12-23 07:52] VITALS: BP 182/82
== END 2021-12-23 10:30 | disposition home or self-care (01) ==
LOC: M ED 07:25 → EDBD 07:25 → M ED 10:30
DX: M96.830 Postprocedural hemorrhage of a musculoskeletal structure following a musculoskeletal system procedure (principal); E11.9 Type 2 diabetes mellitus without complications; I48.91 Unspecified atrial fibrillation; D64.9 Anemia, unspecified; E07.9 Disorder of thyroid, unspecified; E78.5 Hyperlipidemia, unspecified; Z86.14 Personal history of Methicillin resistant Staphylococcus aureus infection; Z79.899 Other long term (current) drug therapy; Z79.82 Long term (current) use of aspirin; Z79.4 Long term (current) use of insulin; Z79.890 Hormone replacement therapy

== ENCOUNTER → 2022-01-26 | Outpatient (CLI) | payer MEDICARE, OTHER | LOC: M PAIN 13:00 | PROVIDERS: ATTEND Anesthesiology | DX: M54.2 Cervicalgia (principal); M79.10 Myalgia, unspecified site; M79.18 Myalgia, other site; M54.50 Low back pain, unspecified; E11.9 Type 2 diabetes mellitus without complications; I10 Essential (primary) hypertension; I48.91 Unspecified atrial fibrillation; E78.00 Pure hypercholesterolemia, unspecified; G47.00 Insomnia, unspecified; E03.9 Hypothyroidism, unspecified; F41.9 Anxiety disorder, unspecified; F32.A Depression, unspecified; E55.9 Vitamin D deficiency, unspecified; I25.10 Atherosclerotic heart disease of native coronary artery without angina pectoris; Z87.81 Personal history of (healed) traumatic fracture; Z87.19 Personal history of other diseases of the digestive system; M19.90 Unspecified osteoarthritis, unspecified site; H93.19 Tinnitus, unspecified ear; F17.210 Nicotine dependence, cigarettes, uncomplicated; Z79.4 Long term (current) use of insulin; Z79.899 Other long term (current) drug therapy; Z79.890 Hormone replacement therapy; Z79.82 Long term (current) use of aspirin ==

== ENCOUNTER → 2022-03-08 | Outpatient (CLI) | payer MEDICARE ==
[~2022-03-08] MED LIST changes: +FISH10005 PO; -FISH7.5C PO
== END ==
LOC: M PLAIMG 13:14
PROVIDERS: ATTEND Anesthesiology
DX: M54.2 Cervicalgia (principal); M51.36 Other intervertebral disc degeneration, lumbar region; M51.37 Other intervertebral disc degeneration, lumbosacral region

== ENCOUNTER → 2022-04-11 | Outpatient (CLI) | payer MEDICARE, OTHER | LOC: M PAIN 14:45 | PROVIDERS: ATTEND Nurse Practitioner Family | DX: M79.18 Myalgia, other site (principal); E11.9 Type 2 diabetes mellitus without complications; I10 Essential (primary) hypertension; I48.91 Unspecified atrial fibrillation; E78.00 Pure hypercholesterolemia, unspecified; M54.2 Cervicalgia; G47.00 Insomnia, unspecified; E03.9 Hypothyroidism, unspecified; H93.19 Tinnitus, unspecified ear; F41.9 Anxiety disorder, unspecified; F17.210 Nicotine dependence, cigarettes, uncomplicated; F32.A Depression, unspecified; E55.9 Vitamin D deficiency, unspecified; K21.9 Gastro-esophageal reflux disease without esophagitis; I25.10 Atherosclerotic heart disease of native coronary artery without angina pectoris; M19.90 Unspecified osteoarthritis, unspecified site; Z87.81 Personal history of (healed) traumatic fracture; Z87.19 Personal history of other diseases of the digestive system; Z79.4 Long term (current) use of insulin; Z79.890 Hormone replacement therapy; Z79.899 Other long term (current) drug therapy ==

== ENCOUNTER → 2022-04-23 | Outpatient (CLI) | payer MEDICARE | LOC: M LABSMTC 11:45 | PROVIDERS: ATTEND Orthopaedic Surgery | DX: Z11.52 Encounter for screening for COVID-19 (principal) ==

== ENCOUNTER 2022-05-03 13:57 | Emergency (ER) | payer MEDICARE ==
[2022-05-03 17:00] LABS: BASO # 0.1 10^3/uL (0.0-0.2); BASO % 0.8 % (0.0-1.0); EOS # 0.9 10^3/uL (0.0-0.5); EOS % 7.3 % (0.0-3.0); HEMATOCRIT 34.8 % (42.0-52.0); HEMOGLOBIN 10.6 g/dl (13.5-17.5); LYMPH # 2.1 10^3/uL (1.5-5.0); MEAN CORPUSCULAR HEMOGLOBIN 26.7 pg (27.0-33.0); MEAN CORPUSCULAR HGB CONC 30.5 g/dl (32.0-36.5); MEAN CORPUSCULAR VOLUME 87.7 fl (80.0-96.0); MONO # 1.2 10^3/uL (0.0-0.8); NEUTROPHILS # 7.3 10^3/uL (1.5-8.5); NEUTROPHILS % 62.7 % (36.0-66.0); PLATELET COUNT, AUTOMATED 249 10^3/uL (150-450); RED BLOOD COUNT 3.97 10^6/uL (4.30-6.10); WHITE BLOOD COUNT 11.7 10^3/uL (4.0-10.0)
[2022-05-03 17:20] LABS: INR 1.1; PARTIAL THROMBOPLASTIN TIME 29.9 SECONDS (24.8-34.2); PROTHROMBIN TIME 14.4 SECONDS (12.5-14.5)
[2022-05-03 19:22] VITALS: BP 117/84
== END 2022-05-03 20:50 | disposition home or self-care (01) ==
LOC: EDBD 13:57 → M ED 13:57
DX: L76.32 Postprocedural hematoma of skin and subcutaneous tissue following other procedure (principal); Z96.612 Presence of left artificial shoulder joint; I48.91 Unspecified atrial fibrillation; E11.9 Type 2 diabetes mellitus without complications; E78.5 Hyperlipidemia, unspecified; Z79.4 Long term (current) use of insulin; Z79.82 Long term (current) use of aspirin; Z79.899 Other long term (current) drug therapy

== ENCOUNTER 2022-08-31 10:02 | Emergency (ER) | payer BC, MEDICARE, OTHER ==
[~2022-08-31] VITALS: Ht 175.3 cm; Wt 74.0 kg
[2022-08-31] MEDS ORDERED: NS 1,000 ML IV SCH (10:10)
[2022-08-31 10:34] LABS: BASO # 0.1 10^3/uL (0.0-0.2); BASO % 0.9 % (0.0-1.0); EOS # 0.5 10^3/uL (0.0-0.5); EOS % 5.9 % (0.0-3.0); HEMATOCRIT 43.6 % (42.0-52.0); HEMOGLOBIN 13.8 g/dl (13.5-17.5); LYMPH # 2.5 10^3/uL (1.5-5.0); LYMPH % 26.8 % (24.0-44.0); MEAN CORPUSCULAR HEMOGLOBIN 28.4 pg (27.0-33.0); MEAN CORPUSCULAR HGB CONC 31.7 g/dl (32.0-36.5); MEAN CORPUSCULAR VOLUME 89.7 fl (80.0-96.0); MONO # 0.9 10^3/uL (0.0-0.8); MONO % 9.4 % (2.0-8.0); NEUTROPHILS # 5.1 10^3/uL (1.5-8.5); NEUTROPHILS % 55.6 % (36.0-66.0); PLATELET COUNT, AUTOMATED 240 10^3/uL (150-450); RED BLOOD COUNT 4.86 10^6/uL (4.30-6.10); WHITE BLOOD COUNT 9.1 10^3/uL (4.0-10.0)
[2022-08-31 11:02] LABS: ACETAMINOPHEN LEVEL < 2.0 UG/ML (10.0-20.0); SALICYLATE LEVEL < 3.0 MG/DL (<30)
[2022-08-31 11:03] LABS: ALBUMIN 3.2 G/DL (3.2-5.2); ALKALINE PHOSPHATASE 114 U/L (46-116); ALT/SGPT 12 U/L (7.0-40); AST/SGOT 20 U/L (<34); BILIRUBIN,DIRECT 0.1 MG/DL (<0.4); BILIRUBIN,TOTAL 0.2 MG/DL (0.3-1.2); BLOOD UREA NITROGEN 17 MG/DL (9-23); CALCIUM LEVEL 8.8 MG/DL (8.3-10.6); CARBON DIOXIDE LEVEL 27 MMOL/L (20-31); CHLORIDE LEVEL 104 MMOL/L (98-107); CREATININE FOR GFR 1.02 MG/DL (0.70-1.30); GLOMERULAR FILTRATION RATE > 60.0 (>42); GLUCOSE, FASTING 180 MG/DL (74-106); MAGNESIUM LEVEL 1.8 MG/DL (1.8-2.4); POTASSIUM SERUM 4.4 MMOL/L (3.5-5.1); SODIUM LEVEL 139 MMOL/L (136-145); TOTAL PROTEIN 6.7 G/DL (5.7-8.2)
[2022-08-31 11:36] LABS: OSMOLALITY SERUM 356 MOSM/KG (280-301)
[2022-08-31 12:04] LABS: RSV AMPLIFICATION NEGATIVE (NEGATIVE)
[2022-08-31 12:23] LABS: VENOUS BASE EXCESS -2.9 (-2.0-2.0); VENOUS HCO3 21.1 MEQ/L (23.0-27.0); VENOUS O2 SATURATION 99.5 % (60.0-80.0); VENOUS PARTIAL PRESSURE CO2 34.9 mmHg (38.0-50.0); VENOUS PARTIAL PRESSURE O2 248.7 mmHg (30.0-50.0); VENOUS STANDARD HCO3 22.1 MEQ/L; VENOUS TOTAL CO2 22.2 MEQ/L (24.0-28.0)
[2022-08-31 16:06] VITALS: BP 171/74
== END 2022-08-31 16:37 | disposition home or self-care (01) ==
LOC: M ED 10:02
DX: F10.129 Alcohol abuse with intoxication, unspecified (principal); W19.XXXA Unspecified fall, initial encounter; I48.91 Unspecified atrial fibrillation; I25.10 Atherosclerotic heart disease of native coronary artery without angina pectoris; I10 Essential (primary) hypertension; E11.9 Type 2 diabetes mellitus without complications; F17.200 Nicotine dependence, unspecified, uncomplicated; Z79.82 Long term (current) use of aspirin; Z79.4 Long term (current) use of insulin; Z79.890 Hormone replacement therapy; Z79.899 Other long term (current) drug therapy

== ENCOUNTER → 2022-10-23 | Outpatient (CLI) | payer MEDICARE, OTHER | LOC: M PAIN 13:15 | PROVIDERS: ATTEND Anesthesiology | DX: M79.10 Myalgia, unspecified site (principal); M79.18 Myalgia, other site; E11.9 Type 2 diabetes mellitus without complications; I10 Essential (primary) hypertension; I48.91 Unspecified atrial fibrillation; E78.00 Pure hypercholesterolemia, unspecified; G47.00 Insomnia, unspecified; M54.2 Cervicalgia; E03.9 Hypothyroidism, unspecified; F41.9 Anxiety disorder, unspecified; F32.A Depression, unspecified; E55.9 Vitamin D deficiency, unspecified; K21.9 Gastro-esophageal reflux disease without esophagitis; I25.10 Atherosclerotic heart disease of native coronary artery without angina pectoris; F17.210 Nicotine dependence, cigarettes, uncomplicated; Z79.82 Long term (current) use of aspirin; Z79.4 Long term (current) use of insulin; Z79.890 Hormone replacement therapy; Z79.899 Other long term (current) drug therapy ==

== ENCOUNTER → 2022-12-21 | Outpatient (CLI) | payer MEDICARE, OTHER ==
[~2022-12-21] MED LIST changes: +CYAN-1 PO; -CYAN100050 PO; +TRIAMCINOLONE ACETONIDE SUSP 40MG/ML 1ML VIAL As Ordered ONE
== END ==
LOC: M PAIN 11:00
PROVIDERS: ATTEND Anesthesiology
DX: M79.18 Myalgia, other site (principal); M79.12 Myalgia of auxiliary muscles, head and neck; E11.9 Type 2 diabetes mellitus without complications; I10 Essential (primary) hypertension; I48.91 Unspecified atrial fibrillation; E78.00 Pure hypercholesterolemia, unspecified; M54.2 Cervicalgia; G47.00 Insomnia, unspecified; E03.9 Hypothyroidism, unspecified; H93.19 Tinnitus, unspecified ear; F41.9 Anxiety disorder, unspecified; F17.210 Nicotine dependence, cigarettes, uncomplicated; F32.A Depression, unspecified; E55.9 Vitamin D deficiency, unspecified; K21.9 Gastro-esophageal reflux disease without esophagitis; I25.10 Atherosclerotic heart disease of native coronary artery without angina pectoris; M19.90 Unspecified osteoarthritis, unspecified site; Z87.81 Personal history of (healed) traumatic fracture; Z87.19 Personal history of other diseases of the digestive system; Z79.4 Long term (current) use of insulin; Z79.890 Hormone replacement therapy; Z79.899 Other long term (current) drug therapy
CPT/HCPCS: 20553; J3301

== ENCOUNTER 2023-01-07 13:38 | Inpatient (IN) | payer OTHER, MEDICARE ==
[~2023-01-07] VITALS: Ht 180.3 cm; Wt 89.5 kg
[2023-01-07] VITALS (29 sets, daily range): BP systolic 73–156; BP diastolic 42–89; TEMP 95.7–97.7; O2SAT 86–97
[~2023-01-07 13:38] MED LIST changes: +LANTINJ4 SUBQ; -TRIAMCINOLONE ACETONIDE SUSP 40MG/ML 1ML VIAL As Ordered ONE
[2023-01-07 14:28] LABS: BASO % 0.3 % (0.0-1.0); EOS # 0.3 10^3/uL (0.0-0.5); HEMOGLOBIN 11.3 g/dl (13.5-17.5); LYMPH # 1.7 10^3/uL (1.5-5.0); LYMPH % 12.6 % (24.0-44.0); MEAN CORPUSCULAR HEMOGLOBIN 30.3 pg (27.0-33.0); MEAN CORPUSCULAR HGB CONC 31.4 g/dl (32.0-36.5); MEAN CORPUSCULAR VOLUME 96.5 fl (80.0-96.0); MONO # 1.2 10^3/uL (0.0-0.8); NEUTROPHILS # 9.8 10^3/uL (1.5-8.5); NEUTROPHILS % 74.7 % (36.0-66.0); PLATELET COUNT, AUTOMATED 409 10^3/uL (150-450); RED BLOOD COUNT 3.73 10^6/uL (4.30-6.10); WHITE BLOOD COUNT 13.1 10^3/uL (4.0-10.0)
[2023-01-07] MEDS ORDERED: DEXTROSE 50% 50ML SYRINGE IV STA ×2 (14:42→16:09)
[2023-01-07] MEDS ORDERED: HumuLIN R (REGULAR) INSULIN (NovoLIN R) **100U/ML** PER UNIT IV STA ×2 (14:42→16:09)
[2023-01-07] MEDS ORDERED: CALCIUM CHLORIDE 10% 1 GM in D5W 100 ML IV ONE ×2 (14:45→16:10)
[2023-01-07] MEDS ORDERED: NS 1,000 ML IV ONE ×3 (14:45→18:45)
[2023-01-07] MEDS ORDERED: SODIUM BICARBONATE 150 MEQ in STERILE WATER LITER BAG 1,000 ML IV SCH (14:45)
[2023-01-07 14:53] LABS: VENOUS HCO3 12.7 MMOL/L (23.0-27.0); VENOUS O2 SATURATION 78.4 % (60.0-80.0); VENOUS PARTIAL PRESSURE CO2 36.3 mmHg (38.0-50.0); VENOUS PH 7.163 UNITS (7.330-7.430); VENOUS STANDARD HCO3 12.8 MMOL/L; VENOUS TOTAL CO2 13.9 MMOL/L (24.0-28.0)
[2023-01-07 15:05] LABS: ETHYL ALCOHOL (ETHANOL) < 0.003 % (0.000-0.010)
[2023-01-07 15:06] LABS: CPK CREATINE PHOSPHOKINASE 173 U/L (46-171)
[2023-01-07 15:17] LABS: BLOOD UREA NITROGEN 156 MG/DL (9-23); CALCIUM LEVEL 8.4 MG/DL (8.3-10.6); CARBON DIOXIDE LEVEL 14 MMOL/L (20-31); CHLORIDE LEVEL 94 MMOL/L (98-107); CREATININE FOR GFR 11.94 MG/DL (0.70-1.30); GLOMERULAR FILTRATION RATE 4.5 (>42); GLUCOSE, FASTING 134 MG/DL (74-106); MAGNESIUM LEVEL 4.8 MG/DL (1.8-2.4); POTASSIUM SERUM 8.4 MMOL/L (3.5-5.1); SODIUM LEVEL 127 MMOL/L (136-145)
[2023-01-07] MEDS ORDERED: LIDOCAINE 2% 5ML JELLY UROJET TOP ONE (16:00)
[2023-01-07] MEDS ORDERED: LORazepam 2 MG TAB PO PRN (16:25)
[2023-01-07] MEDS ORDERED: DEXTROSE 50% 50ML SYRINGE IV PRN (16:25)
[2023-01-07] MEDS ORDERED: VANCOMYCIN HCL 750 MG, VIAL MATE ADAPTER 1 EACH in D5W 250 ML IV SCH (16:25)
[2023-01-07] MEDS ORDERED: GLUCOSE 4GM CHEW TABLET PO PRN (16:25)
[2023-01-07] MEDS ORDERED: GLUCAGON INJ 1MG VIAL SC PRN (16:25)
[2023-01-07] MEDS ORDERED: PATIROMER SORBITEX CALCIUM 8.4 GM POWDER PACKET (VELTASSA) PO ONE ×2 (17:00→18:35)
[2023-01-07] MEDS ORDERED: VANCOMYCIN HCL 1,000 MG, VIAL MATE ADAPTER 1 EACH in D5W 250 ML IV SCH (17:20)
[2023-01-07] MEDS ORDERED: VANCOMYCIN INTERMITTENT/PULSE DOSING BY CLINICAL PHARMACIST PER DOSING PROTOCOL XX SCH (17:30)
[2023-01-07 17:31] LABS: ABG BASE EXCESS -11.4 (-2.0-2.0); ABG HCO3 14.6 MMOL/L (22.0-26.0); ABG O2 SATURATION 93.8 % (95.0-99.0); ABG PARTIAL PRESSURE CO2 33.1 mmHg (35.0-45.0); ABG PARTIAL PRESSURE O2 75.3 mmHg (75.0-100.0); ABG STANDARD HCO3 15.4 MMOL/L. (22.0-26.0); ABG TOTAL CO2 15.6 MMOL/L (23.0-31.0); ABG pH (ARTERIAL) 7.261 UNITS (7.350-7.450)
[2023-01-07] MEDS ORDERED: MED REC IN PROGRESS XX SCH (17:40)
[2023-01-07] MEDS ORDERED: VANCOMYCIN HCL 750 MG, VIAL MATE ADAPTER 1 EACH in D5W 250 ML IV ONE (18:00)
[2023-01-07 18:04] LABS: VENOUS BASE EXCESS -11.8 (-2.0-2.0); VENOUS HCO3 15.3 MMOL/L (23.0-27.0); VENOUS O2 SATURATION 88.8 % (60.0-80.0); VENOUS PARTIAL PRESSURE CO2 38.9 mmHg (38.0-50.0); VENOUS PARTIAL PRESSURE O2 61.9 mmHg (30.0-50.0); VENOUS PH 7.212 UNITS (7.330-7.430); VENOUS STANDARD HCO3 15.1 MMOL/L; VENOUS TOTAL CO2 16.5 MMOL/L (24.0-28.0)
[2023-01-07 18:42] LABS: FREE T4 0.92 NG/DL (0.89-1.76); THYROID STIMULATING HORMONE 1.703 uIU/ML (0.55-4.78)
[2023-01-07] MEDS ORDERED: VANCOMYCIN HCL 500 MG in D5W MINI-BAG PLUS 100 ML IV ONE (19:00)
[2023-01-07 19:06] LABS: ALBUMIN 2.7 G/DL (3.2-5.2); BILIRUBIN,DIRECT 0.2 MG/DL (<0.4); BILIRUBIN,TOTAL 0.5 MG/DL (0.3-1.2); CALCIUM LEVEL 11.6 MG/DL (8.3-10.6); CREATININE FOR GFR 11.19 MG/DL (0.70-1.30); GLOMERULAR FILTRATION RATE 4.8 (>42); PHOSPHORUS LEVEL 13.1 MG/DL (2.4-5.1); TOTAL PROTEIN 6.8 G/DL (5.7-8.2)
[2023-01-07] MEDS ORDERED: AMLO1TAB24 PO (19:15)
[2023-01-07] MEDS ORDERED: FERR324T2 PO (19:15)
[2023-01-07] MEDS ORDERED: DULO60CA35 PO (19:15)
[2023-01-07] MEDS: NOREPINEPHRINE 4MG IN D5 250ML 4 MG in IV 1 EA IV SCH ×2 (19:17)
[2023-01-07] MEDS ORDERED: METO1TAB32 PO (19:19)
[2023-01-07 19:24] LABS: ACETAMINOPHEN LEVEL < 2.0 UG/ML (10.0-20.0); SALICYLATE LEVEL < 3.0 MG/DL (<30)
[2023-01-07] MEDS ORDERED: BACIOIN5 TOP (19:38)
[2023-01-07] MEDS ORDERED: GABA-1171 PO (19:38)
[2023-01-07] MEDS ORDERED: CARB1DRO21 OU (19:38)
[2023-01-07] MEDS ORDERED: FLUT1BLS5 PO (19:38)
[2023-01-07] MEDS ORDERED: CROM5.2S4 NARES (19:38)
[2023-01-07] MEDS ORDERED: PANT-23 PO (19:38)
[2023-01-07] MEDS ORDERED: LIDO1PAD TOP (19:38)
[2023-01-07] MEDS ORDERED: POLY17PO18 PO (19:38)
[2023-01-07] MEDS ORDERED: TRAM50TA2 PO (19:38)
[2023-01-07] MEDS ORDERED: DICL1GEL3 TOP (19:38)
[2023-01-07] MEDS ORDERED: CALC200T3 PO (19:38)
[2023-01-07] MEDS ORDERED: TRIA1CR80 TOP (19:38)
[2023-01-07] MEDS ORDERED: HOME MED LIST COMPLETE! XX SCH (19:45)
[2023-01-07] MEDS ORDERED: CEFEPIME HCL 1 GM in D5W MINI-BAG PLUS 50 ML IV SCH (20:00)
[2023-01-07] MEDS: HEPARIN SOD (PORCINE) 5000UNITS/ML 1ML VIAL/SYRINGE SQ SCH (21:28)
[2023-01-07 21:55] LABS: VENOUS BASE EXCESS -14.1 (-2.0-2.0); VENOUS HCO3 13.1 MMOL/L (23.0-27.0); VENOUS O2 SATURATION 98.1 % (60.0-80.0); VENOUS PARTIAL PRESSURE CO2 34.9 mmHg (38.0-50.0); VENOUS PARTIAL PRESSURE O2 128.4 mmHg (30.0-50.0); VENOUS PH 7.191 UNITS (7.330-7.430); VENOUS STANDARD HCO3 13.7 MMOL/L; VENOUS TOTAL CO2 14.1 MMOL/L (24.0-28.0)
[2023-01-07 22:34] LABS: ALBUMIN 2.6 G/DL (3.2-5.2); CALCIUM LEVEL 10.6 MG/DL (8.3-10.6); CREATININE FOR GFR 10.13 MG/DL (0.70-1.30); GLOMERULAR FILTRATION RATE 5.4 (>42); MAGNESIUM LEVEL 4.6 MG/DL (1.8-2.4); PHOSPHORUS LEVEL 11.8 MG/DL (2.4-5.1)
[2023-01-07 22:44] LABS: AMPHETAMINES LEVEL URINE NEGATIVE (NEGATIVE); BARBITURATES URINE NEGATIVE (NEGATIVE)
[2023-01-07 22:45] LABS: BENZODIAZEPINES URINE NEGATIVE (NEGATIVE); CANNABINOIDS URINE NEGATIVE (NEGATIVE); COCAINE METABOLITE URINE NEGATIVE (NEGATIVE); METHADONE URINE NEGATIVE (NEGATIVE); OPIATES URINE NEGATIVE (NEGATIVE); PHENCYCLIDINE URINE NEGATIVE (NEGATIVE)
[2023-01-08] VITALS (88 sets, daily range): BP systolic 70–134; BP diastolic 32–91; TEMP 96.9–99.1; O2SAT 85–97
[2023-01-08] MEDS: NOREPINEPHRINE 4MG IN D5 250ML 4 MG in IV 1 EA IV SCH ×8 (01:40→18:21)
[2023-01-08] MEDS: SODIUM BICARBONATE 150 MEQ in STERILE WATER LITER BAG 1,000 ML IV SCH ×3 (01:56→18:20)
[2023-01-08] MEDS ORDERED: SODIUM BICARBONATE 150 MEQ in STERILE WATER LITER BAG 1,000 ML IV SCH (02:00)
[2023-01-08 02:16] LABS: VENOUS BASE EXCESS -11.9 (-2.0-2.0); VENOUS HCO3 14.1 MMOL/L (23.0-27.0); VENOUS O2 SATURATION 99.3 % (60.0-80.0); VENOUS PARTIAL PRESSURE CO2 32.3 mmHg (38.0-50.0); VENOUS PARTIAL PRESSURE O2 179.3 mmHg (30.0-50.0); VENOUS PH 7.257 UNITS (7.330-7.430); VENOUS STANDARD HCO3 15.2 MMOL/L; VENOUS TOTAL CO2 15.1 MMOL/L (24.0-28.0)
[2023-01-08] MEDS ORDERED: HumuLIN R (REGULAR) INSULIN (NovoLIN R) **100U/ML** PER UNIT IV STA ×2 (02:26→06:42)
[2023-01-08] MEDS ORDERED: SODIUM BICARBONATE 8.4% INJ 50ML SYRINGE IV STA ×2 (02:26→06:42)
[2023-01-08] MEDS ORDERED: DEXTROSE 50% 50ML SYRINGE IV STA ×2 (02:26→06:42)
[2023-01-08] MEDS ORDERED: CALCIUM GLUCONATE 1,000 MG in D5W MINI-BAG PLUS 100 ML IV ONE (02:30)
[2023-01-08 02:57] LABS: ALBUMIN 2.7 G/DL (3.2-5.2); CALCIUM LEVEL 10.1 MG/DL (8.3-10.6); CREATININE FOR GFR 8.34 MG/DL (0.70-1.30); GLOMERULAR FILTRATION RATE 6.8 (>42); MAGNESIUM LEVEL 4.1 MG/DL (1.8-2.4); PHOSPHORUS LEVEL 10.1 MG/DL (2.4-5.1); POTASSIUM SERUM 6.9 MMOL/L (3.5-5.1)
[2023-01-08 06:56] LABS: VENOUS BASE EXCESS -4.5 (-2.0-2.0); VENOUS HCO3 21.8 MMOL/L (23.0-27.0); VENOUS O2 SATURATION 71.2 % (60.0-80.0); VENOUS PARTIAL PRESSURE CO2 44.5 mmHg (38.0-50.0); VENOUS PH 7.307 UNITS (7.330-7.430); VENOUS STANDARD HCO3 20.2 MMOL/L; VENOUS TOTAL CO2 23.1 MMOL/L (24.0-28.0)
[2023-01-08 07:01] LABS: BASO % 0.2 % (0.0-1.0); EOS # 0.2 10^3/uL (0.0-0.5); HEMOGLOBIN 11.6 g/dl (13.5-17.5); LYMPH # 0.7 10^3/uL (1.5-5.0); LYMPH % 6.5 % (24.0-44.0); MEAN CORPUSCULAR HEMOGLOBIN 30.2 pg (27.0-33.0); MEAN CORPUSCULAR HGB CONC 32.2 g/dl (32.0-36.5); MEAN CORPUSCULAR VOLUME 93.8 fl (80.0-96.0); MONO # 0.7 10^3/uL (0.0-0.8); MONO % 7.4 % (2.0-8.0); NEUTROPHILS # 8.4 10^3/uL (1.5-8.5); NEUTROPHILS % 83.1 % (36.0-66.0); PLATELET COUNT, AUTOMATED 351 10^3/uL (150-450); RED BLOOD COUNT 3.84 10^6/uL (4.30-6.10)
[2023-01-08 07:39] LABS: VANCOMYCIN RANDOM 13.2 UG/ML
[2023-01-08 08:01] LABS: ALBUMIN 2.5 G/DL (3.2-5.2); CALCIUM LEVEL 9.1 MG/DL (8.3-10.6); CREATININE FOR GFR 7.05 MG/DL (0.70-1.30); GLOMERULAR FILTRATION RATE 8.2 (>42); MAGNESIUM LEVEL 3.6 MG/DL (1.8-2.4); PHOSPHORUS LEVEL 7.8 MG/DL (2.4-5.1); POTASSIUM SERUM 6.6 MMOL/L (3.5-5.1)
[2023-01-08] MEDS: PANTOPRAZOLE 40MG VIAL IV SCH (08:31)
[2023-01-08] MEDS: HEPARIN SOD (PORCINE) 5000UNITS/ML 1ML VIAL/SYRINGE SQ SCH ×2 (08:31→20:08)
[2023-01-08] MEDS ORDERED: VANCOMYCIN HCL 1,000 MG, VIAL MATE ADAPTER 1 EACH in D5W 250 ML IV ONE (10:00)
[2023-01-08 10:45] LABS: VENOUS BASE EXCESS 2.2 (-2.0-2.0); VENOUS HCO3 27.6 MMOL/L (23.0-27.0); VENOUS O2 SATURATION 84.1 % (60.0-80.0); VENOUS PARTIAL PRESSURE CO2 46.6 mmHg (38.0-50.0); VENOUS PARTIAL PRESSURE O2 49.7 mmHg (30.0-50.0); VENOUS PH 7.391 UNITS (7.330-7.430); VENOUS STANDARD HCO3 26.1 MMOL/L; VENOUS TOTAL CO2 29.1 MMOL/L (24.0-28.0)
[2023-01-08 10:55] LABS: BASO % 0.1 % (0.0-1.0); EOS # 0.2 10^3/uL (0.0-0.5); EOS % 2.4 % (0.0-3.0); HEMOGLOBIN 10.6 g/dl (13.5-17.5); LYMPH # 0.8 10^3/uL (1.5-5.0); LYMPH % 8.4 % (24.0-44.0); MEAN CORPUSCULAR HEMOGLOBIN 30.5 pg (27.0-33.0); MEAN CORPUSCULAR HGB CONC 33.1 g/dl (32.0-36.5); MONO # 0.8 10^3/uL (0.0-0.8); MONO % 8.6 % (2.0-8.0); NEUTROPHILS # 7.5 10^3/uL (1.5-8.5); NEUTROPHILS % 79.8 % (36.0-66.0); PLATELET COUNT, AUTOMATED 333 10^3/uL (150-450); RED BLOOD COUNT 3.48 10^6/uL (4.30-6.10); WHITE BLOOD COUNT 9.4 10^3/uL (4.0-10.0)
[2023-01-08] MEDS ORDERED: ROCURONIUM BROMIDE 50MG/5ML VIAL As Ordered ONE (11:50)
[2023-01-08] MEDS ORDERED: LIDOCAINE 2% 100MG/5ML SDV (FOR ANES.) As Ordered ONE (11:50)
[2023-01-08] MEDS ORDERED: fentaNYL 100 MCG/2 ML INJECTION As Ordered ONE (11:50)
[2023-01-08] MEDS ORDERED: propofoL 200 MG/20 ML VIAL As Ordered ONE ×3 (11:50→13:26)
[2023-01-08] MEDS ORDERED: PHENYLEPHRINE 10MG/ML 1ML VIAL As Ordered ONE (11:51)
[2023-01-08] MEDS ORDERED: ETOMIDATE INJ 20MG/10ML VIAL As Ordered ONE (11:52)
[2023-01-08] MEDS ORDERED: METOCLOPRAMIDE INJ 10MG/2ML VIAL As Ordered ONE (11:54)
[2023-01-08] MEDS ORDERED: ONDANSETRON 4MG 2ML VIAL As Ordered ONE (11:54)
[2023-01-08] MEDS ORDERED: CALCIUM CHLORIDE 10% 1 GM/10 ML SYR As Ordered ONE (12:55)
[2023-01-08] MEDS ORDERED: VASOPRESSIN INJ 20UNITS/ML 1ML VIAL As Ordered ONE (12:57)
[2023-01-08] MEDS ORDERED: PHENYLephrine 500MCG 5ML (100MCG/ML) SYRINGE As Ordered ONE (12:58)
[2023-01-08] MEDS ORDERED: ATROPINE SULF 0.4 MG/ML 1ML VIAL As Ordered ONE (13:02)
[2023-01-08 15:16] LABS: VENOUS BASE EXCESS 3.7 (-2.0-2.0); VENOUS HCO3 29.4 MMOL/L (23.0-27.0); VENOUS O2 SATURATION 95.8 % (60.0-80.0); VENOUS PARTIAL PRESSURE CO2 49.4 mmHg (38.0-50.0); VENOUS PARTIAL PRESSURE O2 84.6 mmHg (30.0-50.0); VENOUS PH 7.393 UNITS (7.330-7.430); VENOUS STANDARD HCO3 27.8 MMOL/L
[2023-01-08 15:49] LABS: ALBUMIN 2.4 G/DL (3.2-5.2); CALCIUM LEVEL 9.4 MG/DL (8.3-10.6); CREATININE FOR GFR 4.53 MG/DL (0.70-1.30); GLOMERULAR FILTRATION RATE 13.7 (>42); MAGNESIUM LEVEL 2.8 MG/DL (1.8-2.4); PHOSPHORUS LEVEL 5.7 MG/DL (2.4-5.1); POTASSIUM SERUM 5.3 MMOL/L (3.5-5.1)
[2023-01-08 18:59] LABS: ABG BASE EXCESS 5.6 (-2.0-2.0); ABG HCO3 29.1 MMOL/L (22.0-26.0); ABG O2 SATURATION 93.9 % (95.0-99.0); ABG PARTIAL PRESSURE CO2 38.4 mmHg (35.0-45.0); ABG PARTIAL PRESSURE O2 65.5 mmHg (75.0-100.0); ABG STANDARD HCO3 29.5 MMOL/L. (22.0-26.0); ABG TOTAL CO2 30.3 MMOL/L (23.0-31.0); ABG pH (ARTERIAL) 7.498 UNITS (7.350-7.450)
[2023-01-08] MEDS ORDERED: FUROSEMIDE 100MG/10ML VIAL IV ONE (19:15)
[2023-01-08] MEDS ORDERED: CEFEPIME HCL 1 GM in D5W MINI-BAG PLUS 50 ML IV SCH (19:42)
[2023-01-08] MEDS ORDERED: IPRATROPIUM 0.5MG/ALBUTEROL 2.5MG INH SOL UD 3ML (DUONEB) NEB ONE (21:15)
[2023-01-09] VITALS (94 sets, daily range): BP systolic 67–157; BP diastolic 39–71; TEMP 97.4–103.2; O2SAT 87–100
[2023-01-09] MEDS ORDERED: LORazepam 2 MG/ML 1ML VIAL IM STA (00:27)
[2023-01-09] MEDS ORDERED: LORazepam 2 MG/ML 1ML VIAL IV STA (00:30)
[2023-01-09] MEDS ORDERED: LORazepam 2 MG/ML 1ML VIAL IV PRN (00:30)
[2023-01-09] MEDS: NOREPINEPHRINE 4MG IN D5 250ML 4 MG in IV 1 EA IV SCH ×6 (03:58→16:58)
[2023-01-09] MEDS ORDERED: ACETAMINOPHEN 1000MG 100ML IV BAG IV ONE (04:10)
[2023-01-09 04:48] LABS: ABG BASE EXCESS 1.9 (-2.0-2.0); ABG HCO3 23.5 MMOL/L (22.0-26.0); ABG PARTIAL PRESSURE CO2 27.6 mmHg (35.0-45.0); ABG PARTIAL PRESSURE O2 153.9 mmHg (75.0-100.0); ABG STANDARD HCO3 26.2 MMOL/L. (22.0-26.0); ABG TOTAL CO2 24.3 MMOL/L (23.0-31.0); ABG pH (ARTERIAL) 7.548 UNITS (7.350-7.450)
[2023-01-09 05:36] LABS: VENOUS HCO3 27.5 MMOL/L (23.0-27.0); VENOUS O2 SATURATION 96.5 % (60.0-80.0); VENOUS PARTIAL PRESSURE CO2 41.5 mmHg (38.0-50.0); VENOUS PARTIAL PRESSURE O2 87.9 mmHg (30.0-50.0); VENOUS PH 7.439 UNITS (7.330-7.430); VENOUS STANDARD HCO3 27.2 MMOL/L; VENOUS TOTAL CO2 28.8 MMOL/L (24.0-28.0)
[2023-01-09 05:40] LABS: BASO % 0.3 % (0.0-1.0); EOS % 0.3 % (0.0-3.0); HEMATOCRIT 31.2 % (42.0-52.0); HEMOGLOBIN 10.1 g/dl (13.5-17.5); LYMPH # 1.1 10^3/uL (1.5-5.0); MEAN CORPUSCULAR HEMOGLOBIN 30.3 pg (27.0-33.0); MEAN CORPUSCULAR HGB CONC 32.4 g/dl (32.0-36.5); MEAN CORPUSCULAR VOLUME 93.7 fl (80.0-96.0); MONO # 0.9 10^3/uL (0.0-0.8); MONO % 6.4 % (2.0-8.0); NEUTROPHILS # 11.9 10^3/uL (1.5-8.5); NEUTROPHILS % 84.2 % (36.0-66.0); PLATELET COUNT, AUTOMATED 328 10^3/uL (150-450); RED BLOOD COUNT 3.33 10^6/uL (4.30-6.10); WHITE BLOOD COUNT 14.1 10^3/uL (4.0-10.0)
[2023-01-09 06:06] LABS: CORTISOL AM 36.2 UG/DL (4.3-22.4); VANCOMYCIN RANDOM 19.4 UG/ML
[2023-01-09 06:09] LABS: ALBUMIN 2.1 G/DL (3.2-5.2); ALKALINE PHOSPHATASE 126 U/L (46-116); ALT/SGPT 17 U/L (7.0-40); AST/SGOT < 8 U/L (<34); BILIRUBIN,TOTAL 0.5 MG/DL (0.3-1.2); BLOOD UREA NITROGEN 99 MG/DL (9-23); CALCIUM LEVEL 9.2 MG/DL (8.3-10.6); CARBON DIOXIDE LEVEL 26 MMOL/L (20-31); CHLORIDE LEVEL 96 MMOL/L (98-107); CREATININE FOR GFR 3.16 MG/DL (0.70-1.30); GLOMERULAR FILTRATION RATE 20.8 (>42); GLUCOSE, FASTING 289 MG/DL (74-106); MAGNESIUM LEVEL 2.4 MG/DL (1.8-2.4); POTASSIUM SERUM 5.7 MMOL/L (3.5-5.1); SODIUM LEVEL 134 MMOL/L (136-145); TOTAL PROTEIN 5.8 G/DL (5.7-8.2)
[2023-01-09] MEDS ORDERED: GLUCOSE 4GM CHEW TABLET PO PRN (07:15)
[2023-01-09] MEDS ORDERED: IPRATROPIUM 0.5MG/ALBUTEROL 2.5MG INH SOL UD 3ML (DUONEB) NEB PRN (07:20)
[2023-01-09] MEDS: VASOPRESSIN INJ 20 UNITS in NS 499 ML IV SCH ×2 (09:00→17:18)
[2023-01-09] MEDS: INSULIN LISPRO (NovoLOG) PER UNIT SC SCH ×3 (09:16→18:25)
[2023-01-09] MEDS: HEPARIN SOD (PORCINE) 5000UNITS/ML 1ML VIAL/SYRINGE SQ SCH (09:16)
[2023-01-09] MEDS: PANTOPRAZOLE 40MG VIAL IV SCH (09:17)
[2023-01-09] MEDS: NS 1,000 ML IV SCH (10:45)
[2023-01-09 11:29] LABS: HEMOGLOBIN A1c 9.5 % (4.0-6.0); INR 1.17; PROTHROMBIN TIME 15.1 SECONDS (12.5-14.5)
[2023-01-09 11:36] LABS: PARTIAL THROMBOPLASTIN TIME 35.4 SECONDS (24.8-34.2)
[2023-01-09 11:41] LABS: CALCIUM LEVEL 9.1 MG/DL (8.3-10.6); CREATININE FOR GFR 2.67 MG/DL (0.70-1.30); GLOMERULAR FILTRATION RATE 25.2 (>42); PHOSPHORUS LEVEL 5.1 MG/DL (2.4-5.1); POTASSIUM SERUM 5.1 MMOL/L (3.5-5.1)
[2023-01-09] MEDS ORDERED: VANCOMYCIN HCL 750 MG, VIAL MATE ADAPTER 1 EACH in D5W 250 ML IV ONE (12:00)
[2023-01-09] MEDS ORDERED: ENOXAPARIN 80MG/0.8ML SYRINGE (J1650 PER 10MG) SC SCH (14:00)
[2023-01-09] MEDS: LEVEMIR (INSULIN DETEMIR) 1 UNITS/0.01ML SC SCH (16:14)
[2023-01-09] MEDS ORDERED: CEFEPIME HCL 2 GM in D5W MINI-BAG PLUS 50 ML IV SCH (20:00)
[2023-01-09] MEDS ORDERED: NYSTATIN 100,000 UNITS/GM TOPICAL PWD 15GM TOP PRN (21:35)
[2023-01-10] VITALS (54 sets, daily range): BP systolic 84–134; BP diastolic 45–77; TEMP 97–98.8; O2SAT 87–98
[2023-01-10] MEDS: NOREPINEPHRINE 4MG IN D5 250ML 4 MG in IV 1 EA IV SCH ×4 (00:20→06:09)
[2023-01-10] MEDS: INSULIN LISPRO (NovoLOG) PER UNIT SC SCH ×5 (00:58→23:49)
[2023-01-10] MEDS: VASOPRESSIN INJ 20 UNITS in NS 499 ML IV SCH (01:07)
[2023-01-10 05:29] LABS: ABG BASE EXCESS 4.7 (-2.0-2.0); ABG HCO3 28.6 MMOL/L (22.0-26.0); ABG O2 SATURATION 94.1 % (95.0-99.0); ABG PARTIAL PRESSURE CO2 39.8 mmHg (35.0-45.0); ABG STANDARD HCO3 28.6 MMOL/L. (22.0-26.0); ABG TOTAL CO2 29.8 MMOL/L (23.0-31.0); ABG pH (ARTERIAL) 7.474 UNITS (7.350-7.450)
[2023-01-10] MEDS: NS 1,000 ML IV SCH (06:00)
[2023-01-10 06:15] LABS: BASO # 0.1 10^3/uL (0.0-0.2); BASO % 0.6 % (0.0-1.0); EOS # 0.5 10^3/uL (0.0-0.5); EOS % 5.6 % (0.0-3.0); HEMATOCRIT 29.9 % (42.0-52.0); HEMOGLOBIN 9.4 g/dl (13.5-17.5); LYMPH % 10.7 % (24.0-44.0); MEAN CORPUSCULAR HEMOGLOBIN 30.1 pg (27.0-33.0); MEAN CORPUSCULAR HGB CONC 31.4 g/dl (32.0-36.5); MEAN CORPUSCULAR VOLUME 95.8 fl (80.0-96.0); MONO # 0.8 10^3/uL (0.0-0.8); NEUTROPHILS # 6.9 10^3/uL (1.5-8.5); NEUTROPHILS % 74.1 % (36.0-66.0); PLATELET COUNT, AUTOMATED 269 10^3/uL (150-450); RED BLOOD COUNT 3.12 10^6/uL (4.30-6.10); WHITE BLOOD COUNT 9.3 10^3/uL (4.0-10.0)
[2023-01-10 06:29] LABS: INR 1.14; PROTHROMBIN TIME 14.8 SECONDS (12.5-14.5)
[2023-01-10 06:30] LABS: PARTIAL THROMBOPLASTIN TIME 40.9 SECONDS (24.8-34.2)
[2023-01-10 06:42] LABS: VANCOMYCIN RANDOM 17.3 UG/ML
[2023-01-10 06:51] LABS: ALBUMIN 1.9 G/DL (3.2-5.2); ALKALINE PHOSPHATASE 113 U/L (46-116); ALT/SGPT < 9 U/L (7.0-40); AST/SGOT 12 U/L (<34); BILIRUBIN,TOTAL 0.5 MG/DL (0.3-1.2); BLOOD UREA NITROGEN 69 MG/DL (9-23); CALCIUM LEVEL 8.8 MG/DL (8.3-10.6); CARBON DIOXIDE LEVEL 35 MMOL/L (20-31); CHLORIDE LEVEL 105 MMOL/L (98-107); CREATININE FOR GFR 1.69 MG/DL (0.70-1.30); GLOMERULAR FILTRATION RATE 42.8 (>42); GLUCOSE, FASTING 128 MG/DL (74-106); PHOSPHORUS LEVEL 3.4 MG/DL (2.4-5.1); POTASSIUM SERUM 4.6 MMOL/L (3.5-5.1); SODIUM LEVEL 143 MMOL/L (136-145); TOTAL PROTEIN 5.5 G/DL (5.7-8.2)
[2023-01-10] MEDS: VANCOMYCIN HCL 1,000 MG, VIAL MATE ADAPTER 1 EACH in D5W 250 ML IV SCH (09:31)
[2023-01-10] MEDS: ENOXAPARIN 80MG/0.8ML SYRINGE (J1650 PER 10MG) SC SCH ×2 (09:31→19:59)
[2023-01-10] MEDS: PANTOPRAZOLE 40MG VIAL IV SCH (09:31)
[2023-01-10] MEDS: LEVEMIR (INSULIN DETEMIR) 1 UNITS/0.01ML SC SCH (09:32)
[2023-01-10] MEDS: ACETAMINOPHEN TAB 650MG DOSE (2X325MG) PO PRN ×2 (15:50→23:49)
[2023-01-11] VITALS (16 sets, daily range): BP systolic 100–154; BP diastolic 54–110; TEMP 96.4–98.7; O2SAT 86–97
[2023-01-11 05:19] LABS: BASO % 0.5 % (0.0-1.0); EOS # 0.7 10^3/uL (0.0-0.5); EOS % 9.2 % (0.0-3.0); HEMATOCRIT 29.2 % (42.0-52.0); HEMOGLOBIN 9.1 g/dl (13.5-17.5); LYMPH # 1.2 10^3/uL (1.5-5.0); MEAN CORPUSCULAR HEMOGLOBIN 30.2 pg (27.0-33.0); MEAN CORPUSCULAR HGB CONC 31.2 g/dl (32.0-36.5); MONO # 0.7 10^3/uL (0.0-0.8); NEUTROPHILS # 5.1 10^3/uL (1.5-8.5); NEUTROPHILS % 64.7 % (36.0-66.0); PLATELET COUNT, AUTOMATED 249 10^3/uL (150-450); RED BLOOD COUNT 3.01 10^6/uL (4.30-6.10); WHITE BLOOD COUNT 7.9 10^3/uL (4.0-10.0)
[2023-01-11] MEDS: INSULIN LISPRO (NovoLOG) PER UNIT SC SCH ×4 (05:51→23:37)
[2023-01-11 05:58] LABS: ALBUMIN 2.2 G/DL (3.2-5.2); ALKALINE PHOSPHATASE 110 U/L (46-116); ALT/SGPT < 9 U/L (7.0-40); AST/SGOT 15 U/L (<34); BILIRUBIN,TOTAL 0.4 MG/DL (0.3-1.2); BLOOD UREA NITROGEN 52 MG/DL (9-23); CALCIUM LEVEL 8.7 MG/DL (8.3-10.6); CARBON DIOXIDE LEVEL 31 MMOL/L (20-31); CHLORIDE LEVEL 107 MMOL/L (98-107); CREATININE FOR GFR 1.46 MG/DL (0.70-1.30); GLOMERULAR FILTRATION RATE 50.7 (>42); GLUCOSE, FASTING 163 MG/DL (74-106); MAGNESIUM LEVEL 1.8 MG/DL (1.8-2.4); POTASSIUM SERUM 4.1 MMOL/L (3.5-5.1); SODIUM LEVEL 142 MMOL/L (136-145); TOTAL PROTEIN 6.2 G/DL (5.7-8.2)
[2023-01-11] MEDS: ENOXAPARIN 80MG/0.8ML SYRINGE (J1650 PER 10MG) SC SCH ×2 (08:19→20:12)
[2023-01-11] MEDS: PANTOPRAZOLE 40MG VIAL IV SCH (08:19)
[2023-01-11] MEDS: TAMSULOSIN 0.4 MG CAP PO SCH (08:20)
[2023-01-11] MEDS: VANCOMYCIN HCL 1,000 MG, VIAL MATE ADAPTER 1 EACH in D5W 250 ML IV SCH (08:20)
[2023-01-11] MEDS: LEVEMIR (INSULIN DETEMIR) 1 UNITS/0.01ML SC SCH (08:22)
[2023-01-11] MEDS: ACETAMINOPHEN TAB 650MG DOSE (2X325MG) PO PRN (20:12)
[2023-01-11] MEDS: FINASTERIDE 5MG TAB PO SCH (20:13)
[2023-01-12] VITALS: BP 149/68; TEMP 96.7; O2SAT 95
[2023-01-12 04:00] VITALS: BP 161/67; TEMP 97; O2SAT 94
[2023-01-12] MEDS: INSULIN LISPRO (NovoLOG) PER UNIT SC SCH ×4 (05:52→23:42)
[2023-01-12 07:33] LABS: BASO # 0.1 10^3/uL (0.0-0.2); BASO % 0.8 % (0.0-1.0); EOS # 0.6 10^3/uL (0.0-0.5); EOS % 7.7 % (0.0-3.0); HEMATOCRIT 31.3 % (42.0-52.0); HEMOGLOBIN 9.7 g/dl (13.5-17.5); LYMPH # 1.3 10^3/uL (1.5-5.0); MEAN CORPUSCULAR HEMOGLOBIN 30.3 pg (27.0-33.0); MEAN CORPUSCULAR VOLUME 97.8 fl (80.0-96.0); MONO # 0.7 10^3/uL (0.0-0.8); MONO % 8.8 % (2.0-8.0); NEUTROPHILS # 5.1 10^3/uL (1.5-8.5); NEUTROPHILS % 63.6 % (36.0-66.0); PLATELET COUNT, AUTOMATED 280 10^3/uL (150-450)
[2023-01-12 07:43] VITALS: BP 130/60; TEMP 97.3; O2SAT 93
[2023-01-12 07:55] LABS: BLOOD UREA NITROGEN 42 MG/DL (9-23); CALCIUM LEVEL 8.8 MG/DL (8.3-10.6); CARBON DIOXIDE LEVEL 28 MMOL/L (20-31); CHLORIDE LEVEL 111 MMOL/L (98-107); CREATININE FOR GFR 1.18 MG/DL (0.70-1.30); GLOMERULAR FILTRATION RATE > 60.0 (>42); GLUCOSE, FASTING 160 MG/DL (74-106); MAGNESIUM LEVEL 1.5 MG/DL (1.8-2.4); SODIUM LEVEL 144 MMOL/L (136-145)
[2023-01-12] MEDS: LEVEMIR (INSULIN DETEMIR) 1 UNITS/0.01ML SC SCH (08:17)
[2023-01-12] MEDS: PANTOPRAZOLE 40MG VIAL IV SCH (08:17)
[2023-01-12] MEDS: ENOXAPARIN 80MG/0.8ML SYRINGE (J1650 PER 10MG) SC SCH (08:18)
[2023-01-12] MEDS: TAMSULOSIN 0.4 MG CAP PO SCH (08:18)
[2023-01-12] MEDS: LEVOTHYROXINE 25MCG TABLET (0.025MG) PO SCH (09:20)
[2023-01-12] MEDS: POTASSIUM CHLORIDE 10MEQ SR TABLET PO SCH (09:37)
[2023-01-12] MEDS: VANCOMYCIN HCL 1,000 MG, VIAL MATE ADAPTER 1 EACH in D5W 250 ML IV SCH (09:37)
[2023-01-12] MEDS: DULoxetine 30MG CAPSULE (CYMBALTA) PO SCH (09:37)
[2023-01-12] MEDS: FUROSEMIDE 40 MG TAB PO SCH (09:37)
[2023-01-12] MEDS: MAG SULF 1GM/100ML (MAG RUN) 1 GM in IV 1 EA IV SCH ×4 (11:18→14:45)
[2023-01-12 12:50] VITALS: BP 138/64; TEMP 97; O2SAT 96
[2023-01-12] MEDS: ACETAMINOPHEN TAB 650MG DOSE (2X325MG) PO PRN (15:40)
[2023-01-12 15:55] VITALS: BP 158/68; TEMP 97; O2SAT 97
[2023-01-12 20:30] VITALS: BP 169/74; TEMP 97.6; O2SAT 93
[2023-01-12] MEDS: ATORVASTATIN 20 MG TAB PO SCH (21:27)
[2023-01-12] MEDS: APIXABAN 5 MG TAB (ELIQUIS) PO SCH (21:27)
[2023-01-12] MEDS: FINASTERIDE 5MG TAB PO SCH (21:27)
[2023-01-13 04:12] VITALS: BP 160/74; TEMP 97.6; O2SAT 94
[2023-01-13] MEDS: INSULIN LISPRO (NovoLOG) PER UNIT SC SCH ×4 (05:45→23:52)
[2023-01-13] MEDS: LEVOTHYROXINE 25MCG TABLET (0.025MG) PO SCH (05:45)
[2023-01-13 07:38] VITALS: BP 145/67; TEMP 97; O2SAT 91
[2023-01-13] MEDS ORDERED: MAG SULF 1GM/100ML (MAG RUN) 1 GM in IV 1 EA IV ONE (08:35)
[2023-01-13 08:56] LABS: VANCOMYCIN LEVEL TROUGH 16.8 UG/ML (10.0-20.0)
[2023-01-13 09:11] LABS: BLOOD UREA NITROGEN 30 MG/DL (9-23); CALCIUM LEVEL 7.7 MG/DL (8.3-10.6); CARBON DIOXIDE LEVEL 26 MMOL/L (20-31); CHLORIDE LEVEL 108 MMOL/L (98-107); GLOMERULAR FILTRATION RATE > 60.0 (>42); GLUCOSE, FASTING 115 MG/DL (74-106); MAGNESIUM LEVEL 1.8 MG/DL (1.8-2.4); POTASSIUM SERUM 4.1 MMOL/L (3.5-5.1); SODIUM LEVEL 140 MMOL/L (136-145)
[2023-01-13] MEDS: PANTOPRAZOLE 40MG VIAL IV SCH (09:17)
[2023-01-13] MEDS: POTASSIUM CHLORIDE 10MEQ SR TABLET PO SCH (09:18)
[2023-01-13] MEDS: FUROSEMIDE 40 MG TAB PO SCH (09:18)
[2023-01-13] MEDS: MAGNESIUM GLUCONATE 500 MG TAB PO SCH ×2 (09:18→21:28)
[2023-01-13] MEDS: TAMSULOSIN 0.4 MG CAP PO SCH (09:18)
[2023-01-13] MEDS: LEVEMIR (INSULIN DETEMIR) 1 UNITS/0.01ML SC SCH (09:18)
[2023-01-13] MEDS: APIXABAN 5 MG TAB (ELIQUIS) PO SCH ×2 (09:19→21:28)
[2023-01-13] MEDS: DULoxetine 30MG CAPSULE (CYMBALTA) PO SCH (09:19)
[2023-01-13] MEDS: VANCOMYCIN HCL 1,000 MG, VIAL MATE ADAPTER 1 EACH in D5W 250 ML IV SCH (09:19)
[2023-01-13 15:27] VITALS: BP 136/77; TEMP 97.7; O2SAT 92
[2023-01-13 20:00] VITALS: BP 128/81; TEMP 96.7; O2SAT 93
[2023-01-13] MEDS: FINASTERIDE 5MG TAB PO SCH (21:28)
[2023-01-13] MEDS: ATORVASTATIN 20 MG TAB PO SCH (21:28)
[2023-01-14 04:00] VITALS: BP 143/60; TEMP 96.3; O2SAT 95
[2023-01-14 05:43] LABS: HEMATOCRIT 32.8 % (42.0-52.0); MEAN CORPUSCULAR HEMOGLOBIN 29.8 pg (27.0-33.0); MEAN CORPUSCULAR HGB CONC 30.5 g/dl (32.0-36.5); MEAN CORPUSCULAR VOLUME 97.6 fl (80.0-96.0); PLATELET COUNT, AUTOMATED 287 10^3/uL (150-450); RED BLOOD COUNT 3.36 10^6/uL (4.30-6.10)
[2023-01-14 05:55] LABS: BLOOD UREA NITROGEN 30 MG/DL (9-23); CALCIUM LEVEL 8.1 MG/DL (8.3-10.6); CARBON DIOXIDE LEVEL 24 MMOL/L (20-31); CHLORIDE LEVEL 108 MMOL/L (98-107); CREATININE FOR GFR 0.98 MG/DL (0.70-1.30); GLOMERULAR FILTRATION RATE > 60.0 (>42); GLUCOSE, FASTING 154 MG/DL (74-106); MAGNESIUM LEVEL 1.8 MG/DL (1.8-2.4); POTASSIUM SERUM 4.1 MMOL/L (3.5-5.1); SODIUM LEVEL 141 MMOL/L (136-145)
[2023-01-14] MEDS: LEVOTHYROXINE 25MCG TABLET (0.025MG) PO SCH (06:04)
[2023-01-14] MEDS: INSULIN LISPRO (NovoLOG) PER UNIT SC SCH (06:05)
[2023-01-14 07:04] LABS: EOSINOPHILS 5 % (0-3); LYMPHOCYTES 11 % (16-44); METAMYELOCYTES 2 % (0-0); MONOCYTES 8 % (0-5); NEUTROPHILS 73 % (28-66); PLATELET ESTIMATE NORMAL (NORMAL)
[2023-01-14 08:00] VITALS: BP 138/72; TEMP 96.9; O2SAT 94
[2023-01-14] MEDS: VANCOMYCIN HCL 1,000 MG, VIAL MATE ADAPTER 1 EACH in D5W 250 ML IV SCH (08:59)
[2023-01-14] MEDS: PANTOPRAZOLE 40MG VIAL IV SCH (08:59)
[2023-01-14] MEDS: TAMSULOSIN 0.4 MG CAP PO SCH (09:00)
[2023-01-14] MEDS: DULoxetine 30MG CAPSULE (CYMBALTA) PO SCH (09:00)
[2023-01-14] MEDS: POTASSIUM CHLORIDE 10MEQ SR TABLET PO SCH (09:00)
[2023-01-14] MEDS: FUROSEMIDE 40 MG TAB PO SCH (09:00)
[2023-01-14] MEDS: MAGNESIUM GLUCONATE 500 MG TAB PO SCH (09:01)
[2023-01-14] MEDS: APIXABAN 5 MG TAB (ELIQUIS) PO SCH (09:01)
[2023-01-14] MEDS: LEVEMIR (INSULIN DETEMIR) 1 UNITS/0.01ML SC SCH (09:02)
[2023-01-14] MEDS: ACETAMINOPHEN TAB 650MG DOSE (2X325MG) PO PRN (09:02)
[2023-01-14] MEDS ORDERED: INSULIN LISPRO (NovoLOG) PER UNIT SC SCH ×2 (12:00→21:00)
[2023-01-14] MEDS ORDERED: DEXTROSE 50% 50ML SYRINGE IV PRN (12:20)
[2023-01-14] MEDS ORDERED: GLUCOSE 4GM CHEW TABLET PO PRN (12:20)
[2023-01-14] MEDS ORDERED: GLUCAGON INJ 1MG VIAL SC PRN (12:20)
[2023-01-14] MEDS ORDERED: LANTINJ4 SUBQ (15:51)
[2023-01-14] MEDS ORDERED: ELIQ5TAB PO (15:51)
[2023-01-14 16:41] VITALS: BP 142/70; TEMP 96.8; O2SAT 98
== END 2023-01-14 17:20 | DRG 500 ==
LOC: M ED 13:38 → EEVIPCON 16:51 → M ED INP 16:51 → M ICU 17:31 → M PCU 01-11 19:40
PROVIDERS: ADMIT Internal Medicine; ATTEND Internal Medicine
PROC: 0RSK0ZZ Reposition Left Shoulder Joint, Open Approach (ICD-10-PCS; 2023-01-08)
PROC: B246ZZZ Ultrasonography of Right and Left Heart (ICD-10-PCS; 2023-01-08)
PROC: 0RSKXZZ Reposition Left Shoulder Joint, External Approach (ICD-10-PCS; 2023-01-08)
PROC: 0KB60ZZ Excision of Left Shoulder Muscle, Open Approach (ICD-10-PCS; principal; 2023-01-08 12:00)
DX: T84.59XA Infection and inflammatory reaction due to other internal joint prosthesis, initial encounter (principal); A41.9 Sepsis, unspecified organism; G93.41 Metabolic encephalopathy; R65.21 Severe sepsis with septic shock; N17.0 Acute kidney failure with tubular necrosis; J96.01 Acute respiratory failure with hypoxia; I50.33 Acute on chronic diastolic (congestive) heart failure; L89.013 Pressure ulcer of right elbow, stage 3; J98.11 Atelectasis; E87.20 Acidosis, unspecified; I13.0 Hypertensive heart and chronic kidney disease with heart failure and stage 1 through stage 4 chronic kidney disease, or unspecified chronic kidney disease; E87.4 Mixed disorder of acid-base balance; T84.028A Dislocation of other internal joint prosthesis, initial encounter; R29.6 Repeated falls; E11.42 Type 2 diabetes mellitus with diabetic polyneuropathy; E03.9 Hypothyroidism, unspecified; I48.0 Paroxysmal atrial fibrillation; N18.9 Chronic kidney disease, unspecified; E78.5 Hyperlipidemia, unspecified; J44.9 Chronic obstructive pulmonary disease, unspecified; E11.22 Type 2 diabetes mellitus with diabetic chronic kidney disease; K21.9 Gastro-esophageal reflux disease without esophagitis; N40.0 Benign prostatic hyperplasia without lower urinary tract symptoms; G47.00 Insomnia, unspecified; F41.9 Anxiety disorder, unspecified; F32.A Depression, unspecified; M19.90 Unspecified osteoarthritis, unspecified site; D64.9 Anemia, unspecified; R13.10 Dysphagia, unspecified; F10.20 Alcohol dependence, uncomplicated; F17.200 Nicotine dependence, unspecified, uncomplicated; E87.5 Hyperkalemia; E83.41 Hypermagnesemia; Z79.82 Long term (current) use of aspirin; Z79.4 Long term (current) use of insulin; Z79.890 Hormone replacement therapy; Z79.899 Other long term (current) drug therapy; Z20.822 Contact with and (suspected) exposure to COVID-19; W01.0XXA Fall on same level from slipping, tripping and stumbling without subsequent striking against object, initial encounter; Y92.009 Unspecified place in unspecified non-institutional (private) residence as the place of occurrence of the external cause; Z96.612 Presence of left artificial shoulder joint; Z89.411 Acquired absence of right great toe

== ENCOUNTER 2023-01-14 13:06 | Inpatient (IN) | payer MEDICARE, OTHER ==
[~2023-01-14] VITALS: Ht 180.3 cm; Wt 69.1 kg
[~2023-01-14 13:06] MED LIST changes: +BACIOIN5 TOP; +CALC200T3 PO; +CARB1DRO21 OU; +CROM5.2S4 NARES; +DULO60CA35 PO; +FERR324T2 PO; +FLUT1BLS5 PO; +GABA-1171 PO; +LIDO1PAD TOP; +METO1TAB32 PO; +PANT-23 PO; +POLY17PO18 PO; +TRIA1CR80 TOP
[2023-01-14] MEDS ORDERED: LANTINJ4 SUBQ (15:51)
[2023-01-14] MEDS ORDERED: ELIQ5TAB PO (15:51)
[2023-01-14] MEDS ORDERED: DEXTROSE 50% 50ML SYRINGE IV PRN (17:15)
[2023-01-14] MEDS ORDERED: GLUCOSE 4GM CHEW TABLET PO PRN (17:15)
[2023-01-14] MEDS ORDERED: GLUCAGON INJ 1MG VIAL SC PRN (17:15)
[2023-01-14] MEDS ORDERED: BISACODYL 10MG SUPP PR PRN (17:15)
[2023-01-14] MEDS: INSULIN LISPRO (NovoLOG) PER UNIT SC SCH ×2 (17:30→21:00)
[2023-01-14 17:45] VITALS: BP 153/62; TEMP 97.6; O2SAT 97
[2023-01-14] MEDS: LACTOBACILLUS ACIDOPHILUS CAP (BACID) PO SCH (18:57)
[2023-01-14] MEDS: FLUTICASONE HFA 220 MCG 12 GM INHALER (FLOVENT) INH SCH (20:00)
[2023-01-14] MEDS ORDERED: RAMELTEON 8 MG TAB (ROZEREM) PO PRN (20:10)
[2023-01-14 20:15] VITALS: BP 128/70; TEMP 97.3; O2SAT 96
[2023-01-14] MEDS: FINASTERIDE 5MG TAB PO SCH (20:41)
[2023-01-14] MEDS: ATORVASTATIN 20 MG TAB PO SCH (20:41)
[2023-01-14] MEDS: APIXABAN 5 MG TAB (ELIQUIS) PO SCH (20:42)
[2023-01-14] MEDS: PANTOPRAZOLE 40MG TAB (PROTONIX) PO SCH (20:42)
[2023-01-14] MEDS: ACETAMINOPHEN 500 MG TAB PO SCH (20:42)
[2023-01-14] MEDS: MAGNESIUM OXIDE 400MG TAB (MAG-OX) PO SCH (20:42)
[2023-01-14] MEDS: REMEDY PHYTOPLEX Z-GUARD PASTE 113GM TUBE (FROM STOREROOM PRODUCT) TOP SCH (21:00)
[2023-01-14] MEDS: SENNA 8.6 MG TAB (SENOKOT) PO SCH (21:00)
[2023-01-14] MEDS: DOCUSATE SODIUM 100MG CAPSULE PO SCH (21:00)
[2023-01-15] MEDS: LEVOTHYROXINE 25MCG TABLET (0.025MG) PO SCH (05:40)
[2023-01-15 06:10] VITALS: BP 126/68; TEMP 97.3; O2SAT 96
[2023-01-15] MEDS: FLUTICASONE HFA 220 MCG 12 GM INHALER (FLOVENT) INH SCH ×2 (08:00→20:00)
[2023-01-15 08:09] LABS: HEMATOCRIT 36.8 % (42.0-52.0); HEMOGLOBIN 10.9 g/dl (13.5-17.5); MEAN CORPUSCULAR HEMOGLOBIN 30.3 pg (27.0-33.0); MEAN CORPUSCULAR HGB CONC 29.6 g/dl (32.0-36.5); MEAN CORPUSCULAR VOLUME 102.2 fl (80.0-96.0); PLATELET COUNT, AUTOMATED 268 10^3/uL (150-450); WHITE BLOOD COUNT 6.8 10^3/uL (4.0-10.0)
[2023-01-15] MEDS: LEVEMIR (INSULIN DETEMIR) 1 UNITS/0.01ML SC SCH (08:35)
[2023-01-15] MEDS: VANCOMYCIN HCL 1,000 MG, VIAL MATE ADAPTER 1 EACH in D5W 250 ML IV SCH (08:35)
[2023-01-15] MEDS: LACTOBACILLUS ACIDOPHILUS CAP (BACID) PO SCH ×2 (08:37→17:11)
[2023-01-15] MEDS: MAGNESIUM OXIDE 400MG TAB (MAG-OX) PO SCH ×2 (08:37→20:31)
[2023-01-15] MEDS: INSULIN LISPRO (NovoLOG) PER UNIT SC SCH ×4 (08:37→20:55)
[2023-01-15] MEDS: APIXABAN 5 MG TAB (ELIQUIS) PO SCH ×2 (08:37→20:31)
[2023-01-15 08:38] LABS: VANCOMYCIN LEVEL TROUGH 14.7 UG/ML (10.0-20.0)
[2023-01-15] MEDS: DULoxetine 30MG CAPSULE (CYMBALTA) PO SCH (08:38)
[2023-01-15] MEDS: FUROSEMIDE 40 MG TAB PO SCH (08:38)
[2023-01-15] MEDS: TAMSULOSIN 0.4 MG CAP PO SCH (08:38)
[2023-01-15] MEDS: PANTOPRAZOLE 40MG TAB (PROTONIX) PO SCH ×2 (08:38→20:30)
[2023-01-15] MEDS: ACETAMINOPHEN 500 MG TAB PO SCH ×3 (08:38→20:30)
[2023-01-15] MEDS: POTASSIUM CHLORIDE 10MEQ SR TABLET PO SCH (08:38)
[2023-01-15] MEDS: REMEDY PHYTOPLEX Z-GUARD PASTE 113GM TUBE (FROM STOREROOM PRODUCT) TOP SCH ×3 (08:39→20:55)
[2023-01-15 08:40] LABS: ALBUMIN 2.2 G/DL (3.2-5.2); ALKALINE PHOSPHATASE 129 U/L (46-116); ALT/SGPT < 9 U/L (7.0-40); AST/SGOT 20 U/L (<34); BILIRUBIN,TOTAL 0.5 MG/DL (0.3-1.2); BLOOD UREA NITROGEN 28 MG/DL (9-23); CALCIUM LEVEL 8.1 MG/DL (8.3-10.6); CARBON DIOXIDE LEVEL 22 MMOL/L (20-31); CHLORIDE LEVEL 109 MMOL/L (98-107); GLOMERULAR FILTRATION RATE > 60.0 (>42); GLUCOSE, FASTING 184 MG/DL (74-106); POTASSIUM SERUM 4.4 MMOL/L (3.5-5.1); SODIUM LEVEL 140 MMOL/L (136-145); TOTAL PROTEIN 6.2 G/DL (5.7-8.2)
[2023-01-15] MEDS: DOCUSATE SODIUM 100MG CAPSULE PO SCH ×2 (08:40→20:54)
[2023-01-15 09:30] LABS: ATYPICAL LYMPH 5 % (0-5); BASOPHILS 1 % (0-1); EOSINOPHILS 3 % (0-3); LYMPHOCYTES 8 % (16-44); METAMYELOCYTES 2 % (0-0); MONOCYTES 6 % (0-5); MYELOCYTES 2 % (0-0); NEUTROPHILS 69 % (28-66)
[2023-01-15 09:31] LABS: ANISOCYTOSIS 1+; HYPOCHROMASIA 2+
[2023-01-15 09:32] LABS: PLATELET ESTIMATE NORMAL (NORMAL)
[2023-01-15 14:00] VITALS: BP 135/92; TEMP 97.6; O2SAT 94
[2023-01-15 20:22] VITALS: BP 147/72; TEMP 97.1; O2SAT 94
[2023-01-15] MEDS: FINASTERIDE 5MG TAB PO SCH (20:30)
[2023-01-15] MEDS: ATORVASTATIN 20 MG TAB PO SCH (20:31)
[2023-01-15] MEDS: SENNA 8.6 MG TAB (SENOKOT) PO SCH (20:55)
[2023-01-16] MEDS: LEVOTHYROXINE 25MCG TABLET (0.025MG) PO SCH (05:39)
[2023-01-16 06:03] VITALS: BP 134/72; TEMP 97.2; O2SAT 97
[2023-01-16] MEDS: FLUTICASONE HFA 220 MCG 12 GM INHALER (FLOVENT) INH SCH ×2 (07:31→19:25)
[2023-01-16] MEDS: INSULIN LISPRO (NovoLOG) PER UNIT SC SCH ×4 (07:48→20:18)
[2023-01-16] MEDS: LEVEMIR (INSULIN DETEMIR) 1 UNITS/0.01ML SC SCH (07:49)
[2023-01-16] MEDS: MAGNESIUM OXIDE 400MG TAB (MAG-OX) PO SCH ×2 (07:50→20:19)
[2023-01-16] MEDS: POTASSIUM CHLORIDE 10MEQ SR TABLET PO SCH (07:50)
[2023-01-16] MEDS: LACTOBACILLUS ACIDOPHILUS CAP (BACID) PO SCH ×2 (07:50→17:47)
[2023-01-16] MEDS: PANTOPRAZOLE 40MG TAB (PROTONIX) PO SCH ×2 (07:50→20:18)
[2023-01-16] MEDS: TAMSULOSIN 0.4 MG CAP PO SCH (07:50)
[2023-01-16] MEDS: VANCOMYCIN HCL 1,000 MG, VIAL MATE ADAPTER 1 EACH in D5W 250 ML IV SCH (07:50)
[2023-01-16] MEDS: DULoxetine 30MG CAPSULE (CYMBALTA) PO SCH (07:50)
[2023-01-16] MEDS: FUROSEMIDE 40 MG TAB PO SCH (07:51)
[2023-01-16] MEDS: APIXABAN 5 MG TAB (ELIQUIS) PO SCH ×2 (07:51→20:18)
[2023-01-16] MEDS: DOCUSATE SODIUM 100MG CAPSULE PO SCH ×2 (07:51→21:00)
[2023-01-16] MEDS: REMEDY PHYTOPLEX Z-GUARD PASTE 113GM TUBE (FROM STOREROOM PRODUCT) TOP SCH ×3 (07:52→21:00)
[2023-01-16] MEDS: ACETAMINOPHEN 500 MG TAB PO SCH ×3 (07:52→20:19)
[2023-01-16 12:44] LABS: BLOOD UREA NITROGEN 26 MG/DL (9-23); CALCIUM LEVEL 8.3 MG/DL (8.3-10.6); CARBON DIOXIDE LEVEL 21 MMOL/L (20-31); CHLORIDE LEVEL 106 MMOL/L (98-107); GLOMERULAR FILTRATION RATE > 60.0 (>42); GLUCOSE, FASTING 165 MG/DL (74-106); POTASSIUM SERUM 4.6 MMOL/L (3.5-5.1); SODIUM LEVEL 137 MMOL/L (136-145)
[2023-01-16 14:00] VITALS: BP 142/65; TEMP 97.1; O2SAT 96
[2023-01-16 14:48] LABS: BASO # 0.1 10^3/uL (0.0-0.2); BASO % 0.9 % (0.0-1.0); EOS # 0.4 10^3/uL (0.0-0.5); EOS % 5.9 % (0.0-3.0); HEMOGLOBIN 9.9 g/dl (13.5-17.5); LYMPH # 1.1 10^3/uL (1.5-5.0); LYMPH % 16.2 % (24.0-44.0); MEAN CORPUSCULAR HEMOGLOBIN 30.1 pg (27.0-33.0); MEAN CORPUSCULAR HGB CONC 30.9 g/dl (32.0-36.5); MEAN CORPUSCULAR VOLUME 97.3 fl (80.0-96.0); MONO # 0.6 10^3/uL (0.0-0.8); MONO % 8.9 % (2.0-8.0); NEUTROPHILS # 4.3 10^3/uL (1.5-8.5); NEUTROPHILS % 64.4 % (36.0-66.0); PLATELET COUNT, AUTOMATED 328 10^3/uL (150-450); RED BLOOD COUNT 3.29 10^6/uL (4.30-6.10); WHITE BLOOD COUNT 6.7 10^3/uL (4.0-10.0)
[2023-01-16 15:13] LABS: ERYTHROCYTE SEDIMENTATION RATE 76 mm/hr (0-20)
[2023-01-16] MEDS ORDERED: IBUPROFEN 600MG TAB PO ONE (16:05)
[2023-01-16 20:00] VITALS: BP 144/76; TEMP 96.9; O2SAT 98
[2023-01-16] MEDS: ATORVASTATIN 20 MG TAB PO SCH (20:18)
[2023-01-16] MEDS: FINASTERIDE 5MG TAB PO SCH (20:18)
[2023-01-16] MEDS: SENNA 8.6 MG TAB (SENOKOT) PO SCH (21:00)
[2023-01-17] MEDS: LEVOTHYROXINE 25MCG TABLET (0.025MG) PO SCH (05:26)
[2023-01-17 06:00] VITALS: BP 140/80; TEMP 96.1; O2SAT 95
[2023-01-17] MEDS: FLUTICASONE HFA 220 MCG 12 GM INHALER (FLOVENT) INH SCH ×2 (07:21→20:00)
[2023-01-17] MEDS: INSULIN LISPRO (NovoLOG) PER UNIT SC SCH ×4 (07:39→21:00)
[2023-01-17] MEDS: VANCOMYCIN HCL 1,000 MG, VIAL MATE ADAPTER 1 EACH in D5W 250 ML IV SCH (07:40)
[2023-01-17] MEDS: APIXABAN 5 MG TAB (ELIQUIS) PO SCH ×2 (07:40→21:38)
[2023-01-17] MEDS: ACETAMINOPHEN 500 MG TAB PO SCH ×3 (07:40→21:42)
[2023-01-17] MEDS: LEVEMIR (INSULIN DETEMIR) 1 UNITS/0.01ML SC SCH (07:40)
[2023-01-17] MEDS: LACTOBACILLUS ACIDOPHILUS CAP (BACID) PO SCH ×2 (07:40→18:50)
[2023-01-17] MEDS: POTASSIUM CHLORIDE 10MEQ SR TABLET PO SCH (07:41)
[2023-01-17] MEDS: TAMSULOSIN 0.4 MG CAP PO SCH (07:41)
[2023-01-17] MEDS: DULoxetine 30MG CAPSULE (CYMBALTA) PO SCH (07:41)
[2023-01-17] MEDS: FUROSEMIDE 40 MG TAB PO SCH (07:41)
[2023-01-17] MEDS: PANTOPRAZOLE 40MG TAB (PROTONIX) PO SCH ×2 (07:41→21:38)
[2023-01-17] MEDS: MAGNESIUM OXIDE 400MG TAB (MAG-OX) PO SCH ×2 (07:42→21:38)
[2023-01-17] MEDS: DOCUSATE SODIUM 100MG CAPSULE PO SCH ×2 (07:43→21:00)
[2023-01-17] MEDS: REMEDY PHYTOPLEX Z-GUARD PASTE 113GM TUBE (FROM STOREROOM PRODUCT) TOP SCH ×3 (07:43→21:00)
[2023-01-17 09:01] LABS: BLOOD UREA NITROGEN 28 MG/DL (9-23); CALCIUM LEVEL 8.4 MG/DL (8.3-10.6); CARBON DIOXIDE LEVEL 21 MMOL/L (20-31); CHLORIDE LEVEL 109 MMOL/L (98-107); CREATININE FOR GFR 0.91 MG/DL (0.70-1.30); GLOMERULAR FILTRATION RATE > 60.0 (>42); GLUCOSE, FASTING 262 MG/DL (74-106); POTASSIUM SERUM 4.4 MMOL/L (3.5-5.1); SODIUM LEVEL 139 MMOL/L (136-145)
[2023-01-17 09:41] LABS: VANCOMYCIN LEVEL TROUGH 27.6 UG/ML (10.0-20.0)
[2023-01-17 14:00] VITALS: BP 133/69; TEMP 97.5; O2SAT 95
[2023-01-17] MEDS ORDERED: PROHANCE 279.3MG/ML 5ML VIAL As Ordered ONE (18:21)
[2023-01-17] MEDS ORDERED: PROHANCE 279.3MG/ML 15ML VIAL As Ordered ONE (18:21)
[2023-01-17 20:00] VITALS: BP 164/64; TEMP 98.6; O2SAT 99
[2023-01-17] MEDS: COMBIVENT RESPIMAT 100-20MCG INHALER 4GM INH SCH (20:00)
[2023-01-17] MEDS: SENNA 8.6 MG TAB (SENOKOT) PO SCH (21:00)
[2023-01-17] MEDS: FINASTERIDE 5MG TAB PO SCH (21:38)
[2023-01-17] MEDS: ATORVASTATIN 20 MG TAB PO SCH (21:41)
[2023-01-18] MEDS ORDERED: TEMAZEPAM 7.5 MG CAP PO PRN (02:10)
[2023-01-18 02:49] VITALS: BP 143/67; TEMP 96.8; O2SAT 94
[2023-01-18] MEDS ORDERED: diphenhydrAMINE 50MG/ML VIAL IV ONE (03:00)
[2023-01-18 03:57] VITALS: TEMP 99.1
[2023-01-18] MEDS: LEVOTHYROXINE 25MCG TABLET (0.025MG) PO SCH (05:51)
[2023-01-18 05:56] LABS: VENOUS BASE EXCESS -4.6 (-2.0-2.0); VENOUS HCO3 19.4 MMOL/L (23.0-27.0); VENOUS O2 SATURATION 98.9 % (60.0-80.0); VENOUS PARTIAL PRESSURE O2 150.2 mmHg (30.0-50.0); VENOUS STANDARD HCO3 20.7 MMOL/L; VENOUS TOTAL CO2 20.4 MMOL/L (24.0-28.0)
[2023-01-18 06:00] VITALS: BP 160/70; TEMP 96.5; O2SAT 90
[2023-01-18 06:04] LABS: BASO # 0.1 10^3/uL (0.0-0.2); BASO % 0.8 % (0.0-1.0); EOS # 0.4 10^3/uL (0.0-0.5); EOS % 5.6 % (0.0-3.0); HEMATOCRIT 28.2 % (42.0-52.0); HEMOGLOBIN 8.7 g/dl (13.5-17.5); LYMPH # 1.8 10^3/uL (1.5-5.0); LYMPH % 23.3 % (24.0-44.0); MEAN CORPUSCULAR HEMOGLOBIN 29.9 pg (27.0-33.0); MEAN CORPUSCULAR HGB CONC 30.9 g/dl (32.0-36.5); MEAN CORPUSCULAR VOLUME 96.9 fl (80.0-96.0); MONO # 0.7 10^3/uL (0.0-0.8); NEUTROPHILS # 4.6 10^3/uL (1.5-8.5); NEUTROPHILS % 57.8 % (36.0-66.0); PLATELET COUNT, AUTOMATED 356 10^3/uL (150-450); RED BLOOD COUNT 2.91 10^6/uL (4.30-6.10); WHITE BLOOD COUNT 7.9 10^3/uL (4.0-10.0)
[2023-01-18 06:30] LABS: BLOOD UREA NITROGEN 26 MG/DL (9-23); CALCIUM LEVEL 7.8 MG/DL (8.3-10.6); CARBON DIOXIDE LEVEL 19 MMOL/L (20-31); CHLORIDE LEVEL 112 MMOL/L (98-107); CREATININE FOR GFR 0.85 MG/DL (0.70-1.30); GLOMERULAR FILTRATION RATE > 60.0 (>42); GLUCOSE, FASTING 168 MG/DL (74-106); POTASSIUM SERUM 4.1 MMOL/L (3.5-5.1); SODIUM LEVEL 140 MMOL/L (136-145)
[2023-01-18] MEDS: FLUTICASONE HFA 220 MCG 12 GM INHALER (FLOVENT) INH SCH ×2 (07:41→20:00)
[2023-01-18] MEDS: COMBIVENT RESPIMAT 100-20MCG INHALER 4GM INH SCH ×3 (07:41→20:00)
[2023-01-18] MEDS: DULoxetine 30MG CAPSULE (CYMBALTA) PO SCH (08:28)
[2023-01-18] MEDS: FUROSEMIDE 40 MG TAB PO SCH (08:28)
[2023-01-18] MEDS: TAMSULOSIN 0.4 MG CAP PO SCH (08:29)
[2023-01-18] MEDS: MAGNESIUM OXIDE 400MG TAB (MAG-OX) PO SCH ×2 (08:29→20:19)
[2023-01-18] MEDS: ACETAMINOPHEN 500 MG TAB PO SCH ×3 (08:29→20:19)
[2023-01-18] MEDS: PANTOPRAZOLE 40MG TAB (PROTONIX) PO SCH ×2 (08:29→20:18)
[2023-01-18] MEDS: LACTOBACILLUS ACIDOPHILUS CAP (BACID) PO SCH ×2 (08:29→17:07)
[2023-01-18] MEDS: APIXABAN 5 MG TAB (ELIQUIS) PO SCH ×2 (08:29→20:18)
[2023-01-18] MEDS: POTASSIUM CHLORIDE 10MEQ SR TABLET PO SCH (08:29)
[2023-01-18] MEDS: LEVEMIR (INSULIN DETEMIR) 1 UNITS/0.01ML SC SCH (08:30)
[2023-01-18] MEDS: DOCUSATE SODIUM 100MG CAPSULE PO SCH ×2 (08:30→20:32)
[2023-01-18] MEDS: REMEDY PHYTOPLEX Z-GUARD PASTE 113GM TUBE (FROM STOREROOM PRODUCT) TOP SCH ×3 (08:31→19:46)
[2023-01-18] MEDS: VANCOMYCIN HCL 1,000 MG, VIAL MATE ADAPTER 1 EACH in D5W 250 ML IV SCH (08:31)
[2023-01-18] MEDS: INSULIN LISPRO (NovoLOG) PER UNIT SC SCH ×4 (08:31→20:11)
[2023-01-18] MEDS ORDERED: QUEtiapine FUMARATE 12.5 MG HALF-TAB PO PRN (09:40)
[2023-01-18] MEDS: THIAMINE 100 MG TAB PO SCH (09:54)
[2023-01-18] MEDS ORDERED: QUEtiapine FUMARATE 50MG TAB PO ONE (10:00)
[2023-01-18 10:01] LABS: ERYTHROCYTE SEDIMENTATION RATE 65 mm/hr (0-20)
[2023-01-18 14:00] VITALS: BP 133/68; TEMP 97.6; O2SAT 96
[2023-01-18] MEDS: GABAPENTIN 100 MG CAP PO SCH ×2 (17:07→20:18)
[2023-01-18 20:00] VITALS: BP 146/67; TEMP 97.3; O2SAT 97
[2023-01-18] MEDS: FINASTERIDE 5MG TAB PO SCH (20:18)
[2023-01-18] MEDS: ATORVASTATIN 20 MG TAB PO SCH (20:19)
[2023-01-18] MEDS: SENNA 8.6 MG TAB (SENOKOT) PO SCH (20:33)
[2023-01-19] MEDS: LEVOTHYROXINE 25MCG TABLET (0.025MG) PO SCH (05:46)
[2023-01-19 06:00] VITALS: BP 150/70; TEMP 96.8; O2SAT 97
[2023-01-19] MEDS: COMBIVENT RESPIMAT 100-20MCG INHALER 4GM INH SCH ×3 (07:42→21:23)
[2023-01-19] MEDS: FLUTICASONE HFA 220 MCG 12 GM INHALER (FLOVENT) INH SCH ×2 (07:43→20:00)
[2023-01-19] MEDS: LACTOBACILLUS ACIDOPHILUS CAP (BACID) PO SCH ×2 (08:10→17:07)
[2023-01-19] MEDS: PANTOPRAZOLE 40MG TAB (PROTONIX) PO SCH ×2 (08:10→20:12)
[2023-01-19] MEDS: DULoxetine 30MG CAPSULE (CYMBALTA) PO SCH (08:10)
[2023-01-19] MEDS: ACETAMINOPHEN 500 MG TAB PO SCH ×3 (08:10→20:12)
[2023-01-19] MEDS: VANCOMYCIN HCL 1,000 MG, VIAL MATE ADAPTER 1 EACH in D5W 250 ML IV SCH (08:10)
[2023-01-19] MEDS: MAGNESIUM OXIDE 400MG TAB (MAG-OX) PO SCH ×2 (08:10→20:13)
[2023-01-19] MEDS: INSULIN LISPRO (NovoLOG) PER UNIT SC SCH ×4 (08:11→20:13)
[2023-01-19] MEDS: DOCUSATE SODIUM 100MG CAPSULE PO SCH ×2 (08:11→19:05)
[2023-01-19] MEDS: THIAMINE 100 MG TAB PO SCH (08:11)
[2023-01-19] MEDS: POTASSIUM CHLORIDE 10MEQ SR TABLET PO SCH (08:11)
[2023-01-19] MEDS: GABAPENTIN 100 MG CAP PO SCH ×3 (08:11→20:12)
[2023-01-19] MEDS: REMEDY PHYTOPLEX Z-GUARD PASTE 113GM TUBE (FROM STOREROOM PRODUCT) TOP SCH ×3 (08:12→19:06)
[2023-01-19] MEDS: LEVEMIR (INSULIN DETEMIR) 1 UNITS/0.01ML SC SCH (08:12)
[2023-01-19] MEDS: APIXABAN 5 MG TAB (ELIQUIS) PO SCH ×2 (08:12→20:12)
[2023-01-19] MEDS: FUROSEMIDE 40 MG TAB PO SCH (12:25)
[2023-01-19 14:00] VITALS: BP 145/65; TEMP 97.9; O2SAT 97
[2023-01-19] MEDS: SENNA 8.6 MG TAB (SENOKOT) PO SCH (19:06)
[2023-01-19 20:00] VITALS: BP 145/68; TEMP 97.2; O2SAT 96
[2023-01-19] MEDS: FINASTERIDE 5MG TAB PO SCH (20:12)
[2023-01-19] MEDS: TAMSULOSIN 0.4 MG CAP PO SCH (20:12)
[2023-01-19] MEDS: ATORVASTATIN 20 MG TAB PO SCH (20:13)
[2023-01-20] MEDS: LEVOTHYROXINE 25MCG TABLET (0.025MG) PO SCH (05:36)
[2023-01-20 06:00] VITALS: BP 150/70; TEMP 96.6; O2SAT 99
[2023-01-20] MEDS: DOCUSATE SODIUM 100MG CAPSULE PO SCH ×2 (07:10→21:00)
[2023-01-20] MEDS: REMEDY PHYTOPLEX Z-GUARD PASTE 113GM TUBE (FROM STOREROOM PRODUCT) TOP SCH ×3 (07:10→21:00)
[2023-01-20] MEDS: PANTOPRAZOLE 40MG TAB (PROTONIX) PO SCH ×2 (07:17→21:00)
[2023-01-20] MEDS: MAGNESIUM OXIDE 400MG TAB (MAG-OX) PO SCH ×2 (07:17→21:01)
[2023-01-20] MEDS: LACTOBACILLUS ACIDOPHILUS CAP (BACID) PO SCH ×2 (07:17→16:58)
[2023-01-20] MEDS: ACETAMINOPHEN 500 MG TAB PO SCH ×3 (07:17→20:59)
[2023-01-20] MEDS: DULoxetine 30MG CAPSULE (CYMBALTA) PO SCH (07:17)
[2023-01-20] MEDS: THIAMINE 100 MG TAB PO SCH (07:17)
[2023-01-20] MEDS: LEVEMIR (INSULIN DETEMIR) 1 UNITS/0.01ML SC SCH (07:18)
[2023-01-20] MEDS: GABAPENTIN 100 MG CAP PO SCH ×3 (07:18→20:59)
[2023-01-20] MEDS: INSULIN LISPRO (NovoLOG) PER UNIT SC SCH ×4 (07:18→21:00)
[2023-01-20] MEDS: POTASSIUM CHLORIDE 10MEQ SR TABLET PO SCH (07:19)
[2023-01-20] MEDS: APIXABAN 5 MG TAB (ELIQUIS) PO SCH ×2 (07:19→21:00)
[2023-01-20] MEDS: FLUTICASONE HFA 220 MCG 12 GM INHALER (FLOVENT) INH SCH ×2 (08:00→20:43)
[2023-01-20 08:02] LABS: VANCOMYCIN LEVEL TROUGH 13.9 UG/ML (10.0-20.0)
[2023-01-20 08:03] LABS: BLOOD UREA NITROGEN 25 MG/DL (9-23); CALCIUM LEVEL 8.4 MG/DL (8.3-10.6); CARBON DIOXIDE LEVEL 20 MMOL/L (20-31); CHLORIDE LEVEL 112 MMOL/L (98-107); CREATININE FOR GFR 0.84 MG/DL (0.70-1.30); GLOMERULAR FILTRATION RATE > 60.0 (>42); GLUCOSE, FASTING 232 MG/DL (74-106); POTASSIUM SERUM 4.5 MMOL/L (3.5-5.1); SODIUM LEVEL 141 MMOL/L (136-145)
[2023-01-20] MEDS: VANCOMYCIN HCL 1,000 MG, VIAL MATE ADAPTER 1 EACH in D5W 250 ML IV SCH (08:46)
[2023-01-20] MEDS: COMBIVENT RESPIMAT 100-20MCG INHALER 4GM INH SCH ×2 (09:45→20:44)
[2023-01-20] MEDS: FUROSEMIDE 40 MG TAB PO SCH (11:51)
[2023-01-20 14:00] VITALS: BP 149/67; TEMP 97.9; O2SAT 94
[2023-01-20 20:00] VITALS: BP 151/70; TEMP 96.7; O2SAT 95
[2023-01-20] MEDS: TAMSULOSIN 0.4 MG CAP PO SCH (20:59)
[2023-01-20] MEDS: ATORVASTATIN 20 MG TAB PO SCH (21:00)
[2023-01-20] MEDS: SENNA 8.6 MG TAB (SENOKOT) PO SCH (21:00)
[2023-01-20] MEDS: FINASTERIDE 5MG TAB PO SCH (21:01)
[2023-01-20] MEDS ORDERED: RAMELTEON 8 MG TAB (ROZEREM) PO ONE (22:00)
[2023-01-21] MEDS: LEVOTHYROXINE 25MCG TABLET (0.025MG) PO SCH (05:44)
[2023-01-21 06:00] VITALS: BP 137/76; TEMP 97.1; O2SAT 96
[2023-01-21] MEDS: FLUTICASONE HFA 220 MCG 12 GM INHALER (FLOVENT) INH SCH ×2 (07:06→21:09)
[2023-01-21] MEDS: COMBIVENT RESPIMAT 100-20MCG INHALER 4GM INH SCH ×3 (07:06→21:09)
[2023-01-21] MEDS: VANCOMYCIN HCL 1,000 MG, VIAL MATE ADAPTER 1 EACH in D5W 250 ML IV SCH ×2 (07:41→08:22)
[2023-01-21] MEDS: APIXABAN 5 MG TAB (ELIQUIS) PO SCH ×2 (07:42→20:35)
[2023-01-21] MEDS: MAGNESIUM OXIDE 400MG TAB (MAG-OX) PO SCH ×2 (07:42→20:34)
[2023-01-21] MEDS: POTASSIUM CHLORIDE 10MEQ SR TABLET PO SCH (07:42)
[2023-01-21] MEDS: GABAPENTIN 100 MG CAP PO SCH ×3 (07:42→20:35)
[2023-01-21] MEDS: THIAMINE 100 MG TAB PO SCH (07:43)
[2023-01-21] MEDS: DULoxetine 30MG CAPSULE (CYMBALTA) PO SCH (07:43)
[2023-01-21] MEDS: LACTOBACILLUS ACIDOPHILUS CAP (BACID) PO SCH ×2 (07:43→17:32)
[2023-01-21] MEDS: ACETAMINOPHEN 500 MG TAB PO SCH ×3 (07:43→20:34)
[2023-01-21] MEDS: PANTOPRAZOLE 40MG TAB (PROTONIX) PO SCH ×2 (07:43→20:35)
[2023-01-21] MEDS: INSULIN LISPRO (NovoLOG) PER UNIT SC SCH ×4 (07:44→21:00)
[2023-01-21] MEDS: REMEDY PHYTOPLEX Z-GUARD PASTE 113GM TUBE (FROM STOREROOM PRODUCT) TOP SCH ×3 (07:44→21:00)
[2023-01-21] MEDS: DOCUSATE SODIUM 100MG CAPSULE PO SCH ×2 (07:44→21:00)
[2023-01-21] MEDS: LEVEMIR (INSULIN DETEMIR) 1 UNITS/0.01ML SC SCH ×2 (07:44→20:35)
[2023-01-21] MEDS: FUROSEMIDE 40 MG TAB PO SCH (12:23)
[2023-01-21 14:00] VITALS: BP 148/77; TEMP 98; O2SAT 96
[2023-01-21 20:00] VITALS: BP 187/94; TEMP 98.2; O2SAT 95
[2023-01-21 20:10] VITALS: BP 144/76
[2023-01-21] MEDS: TAMSULOSIN 0.4 MG CAP PO SCH (20:34)
[2023-01-21] MEDS: ATORVASTATIN 20 MG TAB PO SCH (20:34)
[2023-01-21] MEDS: FINASTERIDE 5MG TAB PO SCH (20:34)
[2023-01-21] MEDS ORDERED: RAMELTEON 8 MG TAB (ROZEREM) PO PRN (20:45)
[2023-01-21] MEDS: SENNA 8.6 MG TAB (SENOKOT) PO SCH (21:00)
[2023-01-22] MEDS: LEVOTHYROXINE 25MCG TABLET (0.025MG) PO SCH (05:25)
[2023-01-22 06:00] VITALS: BP 138/70; TEMP 96.5; O2SAT 98
[2023-01-22] MEDS: FLUTICASONE HFA 220 MCG 12 GM INHALER (FLOVENT) INH SCH ×2 (07:42→20:40)
[2023-01-22] MEDS: COMBIVENT RESPIMAT 100-20MCG INHALER 4GM INH SCH ×3 (07:42→20:40)
[2023-01-22] MEDS: APIXABAN 5 MG TAB (ELIQUIS) PO SCH ×2 (08:25→20:50)
[2023-01-22] MEDS: INSULIN LISPRO (NovoLOG) PER UNIT SC SCH ×4 (08:25→20:33)
[2023-01-22] MEDS: THIAMINE 100 MG TAB PO SCH (08:25)
[2023-01-22] MEDS: LEVEMIR (INSULIN DETEMIR) 1 UNITS/0.01ML SC SCH ×2 (08:25→20:51)
[2023-01-22] MEDS: MAGNESIUM OXIDE 400MG TAB (MAG-OX) PO SCH ×2 (08:26→20:51)
[2023-01-22] MEDS: DULoxetine 30MG CAPSULE (CYMBALTA) PO SCH (08:26)
[2023-01-22] MEDS: PANTOPRAZOLE 40MG TAB (PROTONIX) PO SCH ×2 (08:26→20:50)
[2023-01-22] MEDS: GABAPENTIN 100 MG CAP PO SCH ×2 (08:26→17:14)
[2023-01-22] MEDS: POTASSIUM CHLORIDE 10MEQ SR TABLET PO SCH (08:26)
[2023-01-22] MEDS: ACETAMINOPHEN 500 MG TAB PO SCH ×3 (08:26→20:51)
[2023-01-22] MEDS: LACTOBACILLUS ACIDOPHILUS CAP (BACID) PO SCH ×2 (08:27→17:13)
[2023-01-22] MEDS: REMEDY PHYTOPLEX Z-GUARD PASTE 113GM TUBE (FROM STOREROOM PRODUCT) TOP SCH ×3 (08:27→20:52)
[2023-01-22] MEDS: DOCUSATE SODIUM 100MG CAPSULE PO SCH ×2 (08:27→20:54)
[2023-01-22] MEDS ORDERED: LIDOCAINE 1% MDV 20ML VIAL As Ordered ONE (10:00)
[2023-01-22] MEDS: VANCOMYCIN HCL 1,000 MG, VIAL MATE ADAPTER 1 EACH in D5W 250 ML IV SCH (12:16)
[2023-01-22] MEDS: FUROSEMIDE 40 MG TAB PO SCH (12:17)
[2023-01-22 14:00] VITALS: BP 149/68; TEMP 98.1; O2SAT 98
[2023-01-22] MEDS: SODIUM CHLORIDE 0.9% INJ 10 ML SYR IV SCH (17:15)
[2023-01-22 19:20] VITALS: BP 143/70; TEMP 98.2; O2SAT 96
[2023-01-22] MEDS: GABAPENTIN 300 MG CAP PO SCH (20:50)
[2023-01-22] MEDS: FINASTERIDE 5MG TAB PO SCH (20:50)
[2023-01-22] MEDS: zolPIDEM TARTRATE 5 MG TAB PO SCH (20:50)
[2023-01-22] MEDS: ATORVASTATIN 20 MG TAB PO SCH (20:51)
[2023-01-22] MEDS: TAMSULOSIN 0.4 MG CAP PO SCH (20:51)
[2023-01-22] MEDS: SENNA 8.6 MG TAB (SENOKOT) PO SCH (20:54)
[2023-01-23 05:04] VITALS: BP 136/72; TEMP 96.6; O2SAT 100
[2023-01-23] MEDS: LEVOTHYROXINE 25MCG TABLET (0.025MG) PO SCH (05:10)
[2023-01-23] MEDS: SODIUM CHLORIDE 0.9% INJ 10 ML SYR IV SCH ×2 (05:10→17:20)
[2023-01-23] MEDS: FLUTICASONE HFA 220 MCG 12 GM INHALER (FLOVENT) INH SCH ×2 (08:27→20:34)
[2023-01-23] MEDS: COMBIVENT RESPIMAT 100-20MCG INHALER 4GM INH SCH ×3 (08:27→20:33)
[2023-01-23] MEDS: TIOTROPIUM INHALER/CAPSULE (SPIRIVA) INH SCH (08:27)
[2023-01-23] MEDS: LEVEMIR (INSULIN DETEMIR) 1 UNITS/0.01ML SC SCH ×2 (08:28→20:12)
[2023-01-23] MEDS: GABAPENTIN 100 MG CAP PO SCH ×2 (08:29→17:19)
[2023-01-23] MEDS: MAGNESIUM OXIDE 400MG TAB (MAG-OX) PO SCH ×2 (08:29→20:11)
[2023-01-23] MEDS: PANTOPRAZOLE 40MG TAB (PROTONIX) PO SCH ×2 (08:29→20:11)
[2023-01-23] MEDS: POTASSIUM CHLORIDE 10MEQ SR TABLET PO SCH (08:29)
[2023-01-23] MEDS: LACTOBACILLUS ACIDOPHILUS CAP (BACID) PO SCH ×2 (08:29→17:20)
[2023-01-23] MEDS: INSULIN LISPRO (NovoLOG) PER UNIT SC SCH ×4 (08:29→20:11)
[2023-01-23] MEDS: THIAMINE 100 MG TAB PO SCH (08:29)
[2023-01-23] MEDS: VANCOMYCIN HCL 1,000 MG, VIAL MATE ADAPTER 1 EACH in D5W 250 ML IV SCH (08:30)
[2023-01-23] MEDS: DOCUSATE SODIUM 100MG CAPSULE PO SCH ×2 (08:30→19:12)
[2023-01-23] MEDS: DULoxetine 30MG CAPSULE (CYMBALTA) PO SCH (08:30)
[2023-01-23] MEDS: APIXABAN 5 MG TAB (ELIQUIS) PO SCH ×2 (08:30→20:11)
[2023-01-23] MEDS: REMEDY PHYTOPLEX Z-GUARD PASTE 113GM TUBE (FROM STOREROOM PRODUCT) TOP SCH ×3 (08:31→19:13)
[2023-01-23] MEDS: ACETAMINOPHEN 500 MG TAB PO SCH ×3 (08:31→20:12)
[2023-01-23 10:46] LABS: BASO # 0.1 10^3/uL (0.0-0.2); EOS # 0.4 10^3/uL (0.0-0.5); EOS % 5.5 % (0.0-3.0); HEMATOCRIT 25.8 % (42.0-52.0); HEMOGLOBIN 7.7 g/dl (13.5-17.5); LYMPH # 1.5 10^3/uL (1.5-5.0); LYMPH % 20.2 % (24.0-44.0); MEAN CORPUSCULAR HEMOGLOBIN 29.6 pg (27.0-33.0); MEAN CORPUSCULAR HGB CONC 29.8 g/dl (32.0-36.5); MEAN CORPUSCULAR VOLUME 99.2 fl (80.0-96.0); MONO # 0.7 10^3/uL (0.0-0.8); MONO % 9.8 % (2.0-8.0); NEUTROPHILS # 4.4 10^3/uL (1.5-8.5); NEUTROPHILS % 59.9 % (36.0-66.0); PLATELET COUNT, AUTOMATED 410 10^3/uL (150-450); WHITE BLOOD COUNT 7.3 10^3/uL (4.0-10.0)
[2023-01-23 11:09] LABS: BLOOD UREA NITROGEN 25 MG/DL (9-23); CALCIUM LEVEL 8.3 MG/DL (8.3-10.6); CARBON DIOXIDE LEVEL 22 MMOL/L (20-31); CHLORIDE LEVEL 108 MMOL/L (98-107); CREATININE FOR GFR 0.74 MG/DL (0.70-1.30); GLOMERULAR FILTRATION RATE > 60.0 (>42); GLUCOSE, FASTING 280 MG/DL (74-106); POTASSIUM SERUM 4.8 MMOL/L (3.5-5.1); SODIUM LEVEL 137 MMOL/L (136-145)
[2023-01-23] MEDS: FUROSEMIDE 20 MG TAB PO SCH (11:56)
[2023-01-23 12:45] LABS: HEMATOCRIT 26.9 % (42.0-52.0); HEMOGLOBIN 8.1 g/dl (13.5-17.5)
[2023-01-23 14:00] VITALS: BP 126/67; TEMP 98.5; O2SAT 96
[2023-01-23] MEDS: SENNA 8.6 MG TAB (SENOKOT) PO SCH (19:12)
[2023-01-23 19:59] VITALS: BP 146/68; TEMP 98.4; O2SAT 96
[2023-01-23] MEDS: TAMSULOSIN 0.4 MG CAP PO SCH (20:10)
[2023-01-23] MEDS: FINASTERIDE 5MG TAB PO SCH (20:11)
[2023-01-23] MEDS: GABAPENTIN 300 MG CAP PO SCH (20:11)
[2023-01-23] MEDS: zolPIDEM TARTRATE 5 MG TAB PO SCH (20:11)
[2023-01-23] MEDS: ATORVASTATIN 20 MG TAB PO SCH (20:11)
[2023-01-24] VITALS (7 sets, daily range): BP systolic 129–156; BP diastolic 62–80; TEMP 96.6–97.9; O2SAT 95–97
[2023-01-24] MEDS: LEVOTHYROXINE 25MCG TABLET (0.025MG) PO SCH (05:23)
[2023-01-24] MEDS: SODIUM CHLORIDE 0.9% INJ 10 ML SYR IV SCH ×2 (05:24→17:22)
[2023-01-24] MEDS: DOCUSATE SODIUM 100MG CAPSULE PO SCH ×2 (07:03→19:42)
[2023-01-24 07:11] LABS: BASO # 0.1 10^3/uL (0.0-0.2); BASO % 1.3 % (0.0-1.0); EOS # 0.4 10^3/uL (0.0-0.5); EOS % 7.3 % (0.0-3.0); HEMATOCRIT 24.8 % (42.0-52.0); HEMOGLOBIN 7.7 g/dl (13.5-17.5); LYMPH # 1.6 10^3/uL (1.5-5.0); LYMPH % 25.7 % (24.0-44.0); MEAN CORPUSCULAR HEMOGLOBIN 30.4 pg (27.0-33.0); MONO # 0.7 10^3/uL (0.0-0.8); MONO % 10.8 % (2.0-8.0); NEUTROPHILS # 3.1 10^3/uL (1.5-8.5); NEUTROPHILS % 50.7 % (36.0-66.0); PLATELET COUNT, AUTOMATED 404 10^3/uL (150-450); RED BLOOD COUNT 2.53 10^6/uL (4.30-6.10)
[2023-01-24] MEDS: FLUTICASONE HFA 220 MCG 12 GM INHALER (FLOVENT) INH SCH ×2 (07:11→21:34)
[2023-01-24] MEDS: COMBIVENT RESPIMAT 100-20MCG INHALER 4GM INH SCH ×3 (07:11→21:34)
[2023-01-24] MEDS: TIOTROPIUM INHALER/CAPSULE (SPIRIVA) INH SCH (07:11)
[2023-01-24] MEDS: LACTOBACILLUS ACIDOPHILUS CAP (BACID) PO SCH ×2 (08:17→17:22)
[2023-01-24] MEDS: ACETAMINOPHEN 500 MG TAB PO SCH ×3 (08:17→21:00)
[2023-01-24] MEDS: VANCOMYCIN HCL 1,000 MG, VIAL MATE ADAPTER 1 EACH in D5W 250 ML IV SCH (08:17)
[2023-01-24] MEDS: POTASSIUM CHLORIDE 10MEQ SR TABLET PO SCH (08:17)
[2023-01-24] MEDS: GABAPENTIN 100 MG CAP PO SCH (08:17)
[2023-01-24] MEDS: MAGNESIUM OXIDE 400MG TAB (MAG-OX) PO SCH ×2 (08:17→20:00)
[2023-01-24] MEDS: DULoxetine 30MG CAPSULE (CYMBALTA) PO SCH (08:18)
[2023-01-24] MEDS: LEVEMIR (INSULIN DETEMIR) 1 UNITS/0.01ML SC SCH ×2 (08:18→20:00)
[2023-01-24] MEDS: PANTOPRAZOLE 40MG TAB (PROTONIX) PO SCH ×2 (08:18→19:59)
[2023-01-24] MEDS: THIAMINE 100 MG TAB PO SCH (08:18)
[2023-01-24] MEDS: INSULIN LISPRO (NovoLOG) PER UNIT SC SCH ×4 (08:18→19:41)
[2023-01-24] MEDS: APIXABAN 5 MG TAB (ELIQUIS) PO SCH (08:18)
[2023-01-24] MEDS: REMEDY PHYTOPLEX Z-GUARD PASTE 113GM TUBE (FROM STOREROOM PRODUCT) TOP SCH ×3 (08:19→19:12)
[2023-01-24] MEDS: SODIUM CHLORIDE 0.9% INJ 10 ML SYR IV PRN ×2 (08:19→23:38)
[2023-01-24] MEDS: FUROSEMIDE 20 MG TAB PO SCH (12:10)
[2023-01-24] MEDS ORDERED: diphenhydrAMINE 25MG CAP PO ONE (16:10)
[2023-01-24] MEDS ORDERED: ACETAMINOPHEN TAB 650MG DOSE (2X325MG) PO ONE (16:10)
[2023-01-24] MEDS ORDERED: FUROSEMIDE 20MG/2ML VIAL IV ONE (16:10)
[2023-01-24] MEDS: SUCRALFATE 1 GM TAB PO SCH ×2 (17:21→19:58)
[2023-01-24] MEDS: GABAPENTIN 300 MG CAP PO SCH ×2 (17:21→19:59)
[2023-01-24] MEDS: SENNA 8.6 MG TAB (SENOKOT) PO SCH (19:11)
[2023-01-24] MEDS: zolPIDEM TARTRATE 5 MG TAB PO SCH (19:58)
[2023-01-24] MEDS: ATORVASTATIN 20 MG TAB PO SCH (19:59)
[2023-01-24] MEDS: FINASTERIDE 5MG TAB PO SCH (19:59)
[2023-01-24] MEDS: TAMSULOSIN 0.4 MG CAP PO SCH (19:59)
[2023-01-25 00:37] VITALS: BP 113/61; TEMP 96.5; O2SAT 94
[2023-01-25] MEDS: LEVOTHYROXINE 25MCG TABLET (0.025MG) PO SCH (05:48)
[2023-01-25] MEDS: SODIUM CHLORIDE 0.9% INJ 10 ML SYR IV SCH ×2 (05:49→18:14)
[2023-01-25 06:00] VITALS: BP 142/80; TEMP 96.7; O2SAT 95
[2023-01-25 07:43] LABS: BASO # 0.1 10^3/uL (0.0-0.2); BASO % 1.6 % (0.0-1.0); EOS # 0.5 10^3/uL (0.0-0.5); EOS % 6.3 % (0.0-3.0); HEMATOCRIT 28.2 % (42.0-52.0); LYMPH # 1.9 10^3/uL (1.5-5.0); LYMPH % 25.5 % (24.0-44.0); MEAN CORPUSCULAR HEMOGLOBIN 30.4 pg (27.0-33.0); MEAN CORPUSCULAR HGB CONC 31.9 g/dl (32.0-36.5); MEAN CORPUSCULAR VOLUME 95.3 fl (80.0-96.0); MONO # 0.9 10^3/uL (0.0-0.8); MONO % 12.6 % (2.0-8.0); NEUTROPHILS # 3.6 10^3/uL (1.5-8.5); NEUTROPHILS % 49.9 % (36.0-66.0); PLATELET COUNT, AUTOMATED 425 10^3/uL (150-450); RED BLOOD COUNT 2.96 10^6/uL (4.30-6.10); WHITE BLOOD COUNT 7.3 10^3/uL (4.0-10.0)
[2023-01-25 08:07] LABS: VANCOMYCIN LEVEL TROUGH 12.8 UG/ML (10.0-20.0)
[2023-01-25 08:08] LABS: BLOOD UREA NITROGEN 24 MG/DL (9-23); CALCIUM LEVEL 8.2 MG/DL (8.3-10.6); CARBON DIOXIDE LEVEL 22 MMOL/L (20-31); CHLORIDE LEVEL 108 MMOL/L (98-107); CREATININE FOR GFR 0.77 MG/DL (0.70-1.30); GLOMERULAR FILTRATION RATE > 60.0 (>42); GLUCOSE, FASTING 204 MG/DL (74-106); POTASSIUM SERUM 4.6 MMOL/L (3.5-5.1); SODIUM LEVEL 138 MMOL/L (136-145)
[2023-01-25] MEDS: TIOTROPIUM INHALER/CAPSULE (SPIRIVA) INH SCH (08:40)
[2023-01-25] MEDS: FLUTICASONE HFA 220 MCG 12 GM INHALER (FLOVENT) INH SCH ×2 (08:40→20:49)
[2023-01-25] MEDS: COMBIVENT RESPIMAT 100-20MCG INHALER 4GM INH SCH ×3 (08:40→20:49)
[2023-01-25] MEDS: DOCUSATE SODIUM 100MG CAPSULE PO SCH ×2 (09:00→21:41)
[2023-01-25] MEDS: REMEDY PHYTOPLEX Z-GUARD PASTE 113GM TUBE (FROM STOREROOM PRODUCT) TOP SCH ×3 (09:00→21:00)
[2023-01-25] MEDS: GABAPENTIN 300 MG CAP PO SCH ×3 (09:29→21:43)
[2023-01-25] MEDS: SUCRALFATE 1 GM TAB PO SCH ×4 (09:29→21:43)
[2023-01-25] MEDS: LACTOBACILLUS ACIDOPHILUS CAP (BACID) PO SCH ×2 (09:29→18:13)
[2023-01-25] MEDS: INSULIN LISPRO (NovoLOG) PER UNIT SC SCH ×4 (09:29→21:00)
[2023-01-25] MEDS: LEVEMIR (INSULIN DETEMIR) 1 UNITS/0.01ML SC SCH ×2 (09:29→21:41)
[2023-01-25] MEDS: PANTOPRAZOLE 40MG TAB (PROTONIX) PO SCH ×2 (09:30→21:42)
[2023-01-25] MEDS: THIAMINE 100 MG TAB PO SCH (09:30)
[2023-01-25] MEDS: MAGNESIUM OXIDE 400MG TAB (MAG-OX) PO SCH ×2 (09:30→21:43)
[2023-01-25] MEDS: DULoxetine 30MG CAPSULE (CYMBALTA) PO SCH (09:30)
[2023-01-25] MEDS: POTASSIUM CHLORIDE 10MEQ SR TABLET PO SCH (09:30)
[2023-01-25] MEDS: ACETAMINOPHEN 500 MG TAB PO SCH ×3 (09:30→21:42)
[2023-01-25] MEDS: VANCOMYCIN HCL 1,000 MG, VIAL MATE ADAPTER 1 EACH in D5W 250 ML IV SCH (09:31)
[2023-01-25] MEDS: FUROSEMIDE 20 MG TAB PO SCH (12:30)
[2023-01-25 14:00] VITALS: BP 137/72; TEMP 96.8; O2SAT 96
[2023-01-25 20:00] VITALS: BP 132/64; TEMP 97; O2SAT 94
[2023-01-25] MEDS: SENNA 8.6 MG TAB (SENOKOT) PO SCH (21:41)
[2023-01-25] MEDS: TAMSULOSIN 0.4 MG CAP PO SCH (21:42)
[2023-01-25] MEDS: ATORVASTATIN 20 MG TAB PO SCH (21:43)
[2023-01-25] MEDS: FINASTERIDE 5MG TAB PO SCH (21:43)
[2023-01-25] MEDS: zolPIDEM TARTRATE 5 MG TAB PO SCH (21:52)
[2023-01-26 05:31] VITALS: BP 180/100
[2023-01-26] MEDS: SODIUM CHLORIDE 0.9% INJ 10 ML SYR IV SCH ×2 (05:39→17:40)
[2023-01-26] MEDS: LEVOTHYROXINE 25MCG TABLET (0.025MG) PO SCH (05:39)
[2023-01-26] MEDS ORDERED: amLODIPine 5 MG TAB PO ONE (05:40)
[2023-01-26 05:48] VITALS: BP 180/100
[2023-01-26 06:00] VITALS: BP 192/78; TEMP 96.1; O2SAT 95
[2023-01-26] MEDS: TIOTROPIUM INHALER/CAPSULE (SPIRIVA) INH SCH (07:35)
[2023-01-26] MEDS: FLUTICASONE HFA 220 MCG 12 GM INHALER (FLOVENT) INH SCH ×2 (07:36→20:00)
[2023-01-26] MEDS: COMBIVENT RESPIMAT 100-20MCG INHALER 4GM INH SCH ×3 (07:36→20:00)
[2023-01-26 07:55] LABS: BASO # 0.1 10^3/uL (0.0-0.2); BASO % 1.8 % (0.0-1.0); EOS # 0.6 10^3/uL (0.0-0.5); EOS % 7.6 % (0.0-3.0); HEMATOCRIT 31.3 % (42.0-52.0); HEMOGLOBIN 9.7 g/dl (13.5-17.5); LYMPH # 1.9 10^3/uL (1.5-5.0); LYMPH % 25.5 % (24.0-44.0); MEAN CORPUSCULAR HEMOGLOBIN 29.8 pg (27.0-33.0); MONO # 0.8 10^3/uL (0.0-0.8); MONO % 11.2 % (2.0-8.0); NEUTROPHILS # 3.7 10^3/uL (1.5-8.5); NEUTROPHILS % 49.2 % (36.0-66.0); PLATELET COUNT, AUTOMATED 438 10^3/uL (150-450); RED BLOOD COUNT 3.26 10^6/uL (4.30-6.10); WHITE BLOOD COUNT 7.4 10^3/uL (4.0-10.0)
[2023-01-26 09:00] VITALS: BP 105/64
[2023-01-26] MEDS: DOCUSATE SODIUM 100MG CAPSULE PO SCH ×2 (09:00→20:42)
[2023-01-26] MEDS: REMEDY PHYTOPLEX Z-GUARD PASTE 113GM TUBE (FROM STOREROOM PRODUCT) TOP SCH ×3 (09:00→20:43)
[2023-01-26] MEDS: THIAMINE 100 MG TAB PO SCH (09:01)
[2023-01-26] MEDS: ACETAMINOPHEN 500 MG TAB PO SCH ×3 (09:01→20:39)
[2023-01-26] MEDS: POTASSIUM CHLORIDE 10MEQ SR TABLET PO SCH (09:01)
[2023-01-26] MEDS: MAGNESIUM OXIDE 400MG TAB (MAG-OX) PO SCH ×2 (09:01→20:42)
[2023-01-26] MEDS: SUCRALFATE 1 GM TAB PO SCH ×4 (09:01→20:41)
[2023-01-26] MEDS: DULoxetine 30MG CAPSULE (CYMBALTA) PO SCH (09:01)
[2023-01-26] MEDS: LACTOBACILLUS ACIDOPHILUS CAP (BACID) PO SCH ×2 (09:01→17:41)
[2023-01-26] MEDS: GABAPENTIN 300 MG CAP PO SCH ×3 (09:02→20:41)
[2023-01-26] MEDS: PANTOPRAZOLE 40MG TAB (PROTONIX) PO SCH ×2 (09:02→20:42)
[2023-01-26] MEDS: LEVEMIR (INSULIN DETEMIR) 1 UNITS/0.01ML SC SCH ×2 (09:02→20:38)
[2023-01-26] MEDS: INSULIN LISPRO (NovoLOG) PER UNIT SC SCH ×4 (09:02→20:39)
[2023-01-26] MEDS: VANCOMYCIN HCL 1,000 MG, VIAL MATE ADAPTER 1 EACH in D5W 250 ML IV SCH (09:03)
[2023-01-26] MEDS: FUROSEMIDE 20 MG TAB PO SCH (12:15)
[2023-01-26 14:00] VITALS: BP 125/58; TEMP 98.1; O2SAT 97
[2023-01-26 20:00] VITALS: BP 148/79; TEMP 97.4; O2SAT 98
[2023-01-26] MEDS: FINASTERIDE 5MG TAB PO SCH (20:40)
[2023-01-26] MEDS: ATORVASTATIN 20 MG TAB PO SCH (20:40)
[2023-01-26] MEDS: TAMSULOSIN 0.4 MG CAP PO SCH (20:41)
[2023-01-26] MEDS: zolPIDEM TARTRATE 5 MG TAB PO SCH (20:41)
[2023-01-26] MEDS: SENNA 8.6 MG TAB (SENOKOT) PO SCH (20:42)
[2023-01-27] MEDS: LEVOTHYROXINE 25MCG TABLET (0.025MG) PO SCH (05:33)
[2023-01-27] MEDS: SODIUM CHLORIDE 0.9% INJ 10 ML SYR IV SCH ×2 (05:33→18:12)
[2023-01-27 06:00] VITALS: BP 156/70; TEMP 89.7; O2SAT 96
[2023-01-27 06:49] LABS: BASO # 0.1 10^3/uL (0.0-0.2); BASO % 1.4 % (0.0-1.0); EOS # 0.5 10^3/uL (0.0-0.5); EOS % 6.3 % (0.0-3.0); HEMOGLOBIN 8.5 g/dl (13.5-17.5); LYMPH # 1.9 10^3/uL (1.5-5.0); LYMPH % 26.5 % (24.0-44.0); MEAN CORPUSCULAR HGB CONC 31.5 g/dl (32.0-36.5); MEAN CORPUSCULAR VOLUME 95.4 fl (80.0-96.0); MONO % 14.2 % (2.0-8.0); NEUTROPHILS # 3.4 10^3/uL (1.5-8.5); NEUTROPHILS % 47.8 % (36.0-66.0); PLATELET COUNT, AUTOMATED 413 10^3/uL (150-450); RED BLOOD COUNT 2.83 10^6/uL (4.30-6.10); WHITE BLOOD COUNT 7.1 10^3/uL (4.0-10.0)
[2023-01-27] MEDS: COMBIVENT RESPIMAT 100-20MCG INHALER 4GM INH SCH ×3 (07:08→21:21)
[2023-01-27] MEDS: FLUTICASONE HFA 220 MCG 12 GM INHALER (FLOVENT) INH SCH ×2 (07:08→21:21)
[2023-01-27] MEDS: TIOTROPIUM INHALER/CAPSULE (SPIRIVA) INH SCH (07:08)
[2023-01-27 08:08] LABS: BLOOD UREA NITROGEN 26 MG/DL (9-23); CALCIUM LEVEL 8.4 MG/DL (8.3-10.6); CARBON DIOXIDE LEVEL 20 MMOL/L (20-31); CHLORIDE LEVEL 111 MMOL/L (98-107); CREATININE FOR GFR 0.89 MG/DL (0.70-1.30); GLOMERULAR FILTRATION RATE > 60.0 (>42); GLUCOSE, FASTING 228 MG/DL (74-106); POTASSIUM SERUM 4.7 MMOL/L (3.5-5.1); SODIUM LEVEL 141 MMOL/L (136-145)
[2023-01-27] MEDS: PANTOPRAZOLE 40MG TAB (PROTONIX) PO SCH ×2 (08:13→19:55)
[2023-01-27] MEDS: SUCRALFATE 1 GM TAB PO SCH ×4 (08:13→19:55)
[2023-01-27] MEDS: THIAMINE 100 MG TAB PO SCH (08:13)
[2023-01-27] MEDS: LACTOBACILLUS ACIDOPHILUS CAP (BACID) PO SCH ×2 (08:13→18:10)
[2023-01-27] MEDS: MAGNESIUM OXIDE 400MG TAB (MAG-OX) PO SCH ×2 (08:13→19:56)
[2023-01-27] MEDS: INSULIN LISPRO (NovoLOG) PER UNIT SC SCH ×4 (08:14→19:57)
[2023-01-27] MEDS: POTASSIUM CHLORIDE 10MEQ SR TABLET PO SCH (08:14)
[2023-01-27] MEDS: GABAPENTIN 300 MG CAP PO SCH ×3 (08:14→19:55)
[2023-01-27] MEDS: LEVEMIR (INSULIN DETEMIR) 1 UNITS/0.01ML SC SCH ×2 (08:14→19:57)
[2023-01-27] MEDS: DULoxetine 30MG CAPSULE (CYMBALTA) PO SCH (08:14)
[2023-01-27] MEDS: ACETAMINOPHEN 500 MG TAB PO SCH ×3 (08:15→19:56)
[2023-01-27] MEDS: VANCOMYCIN HCL 1,000 MG, VIAL MATE ADAPTER 1 EACH in D5W 250 ML IV SCH (08:15)
[2023-01-27] MEDS: REMEDY PHYTOPLEX Z-GUARD PASTE 113GM TUBE (FROM STOREROOM PRODUCT) TOP SCH ×3 (08:15→19:22)
[2023-01-27] MEDS: DOCUSATE SODIUM 100MG CAPSULE PO SCH ×2 (08:15→19:19)
[2023-01-27] MEDS: FUROSEMIDE 20 MG TAB PO SCH (12:21)
[2023-01-27 14:00] VITALS: BP 155/82; TEMP 97.7; O2SAT 90
[2023-01-27] MEDS: SENNA 8.6 MG TAB (SENOKOT) PO SCH (19:19)
[2023-01-27] MEDS: zolPIDEM TARTRATE 5 MG TAB PO SCH (19:55)
[2023-01-27] MEDS: FINASTERIDE 5MG TAB PO SCH (19:55)
[2023-01-27] MEDS: TAMSULOSIN 0.4 MG CAP PO SCH (19:55)
[2023-01-27] MEDS: ATORVASTATIN 20 MG TAB PO SCH (19:56)
[2023-01-27 20:00] VITALS: BP 142/68; TEMP 98; O2SAT 94
[2023-01-28] MEDS: SODIUM CHLORIDE 0.9% INJ 10 ML SYR IV SCH ×2 (05:34→17:19)
[2023-01-28] MEDS: LEVOTHYROXINE 25MCG TABLET (0.025MG) PO SCH (05:34)
[2023-01-28 06:00] VITALS: BP 141/65; TEMP 97.3; O2SAT 96
[2023-01-28 07:05] LABS: BASO # 0.1 10^3/uL (0.0-0.2); BASO % 1.9 % (0.0-1.0); EOS # 0.4 10^3/uL (0.0-0.5); EOS % 5.8 % (0.0-3.0); HEMATOCRIT 31.8 % (42.0-52.0); HEMOGLOBIN 9.7 g/dl (13.5-17.5); LYMPH # 1.9 10^3/uL (1.5-5.0); LYMPH % 25.6 % (24.0-44.0); MEAN CORPUSCULAR HEMOGLOBIN 29.4 pg (27.0-33.0); MEAN CORPUSCULAR HGB CONC 30.5 g/dl (32.0-36.5); MEAN CORPUSCULAR VOLUME 96.4 fl (80.0-96.0); MONO # 0.9 10^3/uL (0.0-0.8); MONO % 12.4 % (2.0-8.0); NEUTROPHILS # 3.7 10^3/uL (1.5-8.5); NEUTROPHILS % 50.4 % (36.0-66.0); PLATELET COUNT, AUTOMATED 432 10^3/uL (150-450); WHITE BLOOD COUNT 7.2 10^3/uL (4.0-10.0)
[2023-01-28] MEDS: DOCUSATE SODIUM 100MG CAPSULE PO SCH ×2 (07:06→19:07)
[2023-01-28] MEDS: REMEDY PHYTOPLEX Z-GUARD PASTE 113GM TUBE (FROM STOREROOM PRODUCT) TOP SCH ×3 (07:07→19:08)
[2023-01-28] MEDS: COMBIVENT RESPIMAT 100-20MCG INHALER 4GM INH SCH ×3 (07:16→19:37)
[2023-01-28] MEDS: TIOTROPIUM INHALER/CAPSULE (SPIRIVA) INH SCH (07:16)
[2023-01-28] MEDS: FLUTICASONE HFA 220 MCG 12 GM INHALER (FLOVENT) INH SCH ×2 (07:17→19:37)
[2023-01-28 08:16] LABS: VANCOMYCIN LEVEL TROUGH 12.7 UG/ML (10.0-20.0)
[2023-01-28 08:20] LABS: FERRITIN 91.7 NG/ML (10.5-307.3)
[2023-01-28] MEDS ORDERED: FLOM0.4C39 PO (08:31)
[2023-01-28] MEDS ORDERED: LANTINJ4 SUBQ (08:31)
[2023-01-28] MEDS ORDERED: FURO20TA2 PO (08:31)
[2023-01-28] MEDS ORDERED: GABA-282 PO (08:31)
[2023-01-28] MEDS ORDERED: FINA5TAB2 PO (08:31)
[2023-01-28] MEDS ORDERED: COMBAER6 INH (08:32)
[2023-01-28] MEDS ORDERED: TIOT18INH INH (08:32)
[2023-01-28] MEDS ORDERED: SUCR1TA PO (08:32)
[2023-01-28] MEDS ORDERED: THIA100TA PO (08:32)
[2023-01-28] MEDS ORDERED: AMBI5TAB PO (08:32)
[2023-01-28] MEDS ORDERED: POTA-136 PO (08:32)
[2023-01-28] MEDS ORDERED: ASPI81TA26 PO (08:37)
[2023-01-28] MEDS: LACTOBACILLUS ACIDOPHILUS CAP (BACID) PO SCH ×2 (08:38→17:18)
[2023-01-28] MEDS: INSULIN LISPRO (NovoLOG) PER UNIT SC SCH ×4 (08:38→20:15)
[2023-01-28] MEDS: SUCRALFATE 1 GM TAB PO SCH ×4 (08:39→20:16)
[2023-01-28] MEDS: THIAMINE 100 MG TAB PO SCH (08:39)
[2023-01-28] MEDS: PANTOPRAZOLE 40MG TAB (PROTONIX) PO SCH ×2 (08:39→20:16)
[2023-01-28] MEDS: MAGNESIUM OXIDE 400MG TAB (MAG-OX) PO SCH ×2 (08:39→20:16)
[2023-01-28] MEDS: GABAPENTIN 300 MG CAP PO SCH ×3 (08:39→20:16)
[2023-01-28] MEDS: ACETAMINOPHEN 500 MG TAB PO SCH ×3 (08:39→20:16)
[2023-01-28] MEDS: DULoxetine 30MG CAPSULE (CYMBALTA) PO SCH (08:39)
[2023-01-28] MEDS: VANCOMYCIN HCL 1,000 MG, VIAL MATE ADAPTER 1 EACH in D5W 250 ML IV SCH (08:40)
[2023-01-28] MEDS: POTASSIUM CHLORIDE 10MEQ SR TABLET PO SCH (08:40)
[2023-01-28] MEDS: ASPIRIN 81MG ENTERIC TABLET PO SCH (09:38)
[2023-01-28] MEDS: SODIUM CHLORIDE 0.9% INJ 10 ML SYR IV PRN (09:38)
[2023-01-28] MEDS: LEVEMIR (INSULIN DETEMIR) 1 UNITS/0.01ML SC SCH ×2 (09:38→20:16)
[2023-01-28] MEDS: FUROSEMIDE 20 MG TAB PO SCH (12:14)
[2023-01-28 14:00] VITALS: BP 149/70; TEMP 98.4; O2SAT 94
[2023-01-28] MEDS: SENNA 8.6 MG TAB (SENOKOT) PO SCH (19:08)
[2023-01-28 20:00] VITALS: BP 150/72; TEMP 97.6; O2SAT 95
[2023-01-28] MEDS: zolPIDEM TARTRATE 5 MG TAB PO SCH (20:16)
[2023-01-28] MEDS: TAMSULOSIN 0.4 MG CAP PO SCH (20:16)
[2023-01-28] MEDS: ATORVASTATIN 20 MG TAB PO SCH (20:16)
[2023-01-28] MEDS: FINASTERIDE 5MG TAB PO SCH (20:16)
[2023-01-29] MEDS: SODIUM CHLORIDE 0.9% INJ 10 ML SYR IV SCH ×2 (05:59→17:01)
[2023-01-29 06:00] VITALS: BP 152/66; TEMP 96.7; O2SAT 99
[2023-01-29] MEDS: LEVOTHYROXINE 25MCG TABLET (0.025MG) PO SCH (06:00)
[2023-01-29] MEDS: ASPIRIN 81MG ENTERIC TABLET PO SCH (07:16)
[2023-01-29] MEDS: LEVEMIR (INSULIN DETEMIR) 1 UNITS/0.01ML SC SCH ×2 (07:16→19:46)
[2023-01-29] MEDS: PANTOPRAZOLE 40MG TAB (PROTONIX) PO SCH ×2 (07:16→19:44)
[2023-01-29] MEDS: INSULIN LISPRO (NovoLOG) PER UNIT SC SCH ×4 (07:16→19:46)
[2023-01-29] MEDS: MAGNESIUM OXIDE 400MG TAB (MAG-OX) PO SCH ×2 (07:17→19:45)
[2023-01-29] MEDS: POTASSIUM CHLORIDE 10MEQ SR TABLET PO SCH (07:17)
[2023-01-29] MEDS: ACETAMINOPHEN 500 MG TAB PO SCH ×3 (07:17→19:45)
[2023-01-29] MEDS: LACTOBACILLUS ACIDOPHILUS CAP (BACID) PO SCH ×3 (07:17→19:44)
[2023-01-29] MEDS: DULoxetine 30MG CAPSULE (CYMBALTA) PO SCH (07:17)
[2023-01-29] MEDS: SUCRALFATE 1 GM TAB PO SCH ×4 (07:17→19:44)
[2023-01-29] MEDS: THIAMINE 100 MG TAB PO SCH (07:17)
[2023-01-29] MEDS: GABAPENTIN 300 MG CAP PO SCH ×3 (07:17→19:44)
[2023-01-29] MEDS: DOCUSATE SODIUM 100MG CAPSULE PO SCH ×2 (07:18→19:20)
[2023-01-29 07:26] LABS: BASO # 0.1 10^3/uL (0.0-0.2); BASO % 1.7 % (0.0-1.0); EOS # 0.3 10^3/uL (0.0-0.5); EOS % 4.8 % (0.0-3.0); HEMATOCRIT 28.9 % (42.0-52.0); HEMOGLOBIN 8.8 g/dl (13.5-17.5); LYMPH # 1.8 10^3/uL (1.5-5.0); LYMPH % 25.6 % (24.0-44.0); MEAN CORPUSCULAR HEMOGLOBIN 29.4 pg (27.0-33.0); MEAN CORPUSCULAR HGB CONC 30.4 g/dl (32.0-36.5); MEAN CORPUSCULAR VOLUME 96.7 fl (80.0-96.0); MONO # 0.9 10^3/uL (0.0-0.8); MONO % 12.7 % (2.0-8.0); NEUTROPHILS # 3.7 10^3/uL (1.5-8.5); NEUTROPHILS % 51.3 % (36.0-66.0); PLATELET COUNT, AUTOMATED 375 10^3/uL (150-450); RED BLOOD COUNT 2.99 10^6/uL (4.30-6.10); WHITE BLOOD COUNT 7.2 10^3/uL (4.0-10.0)
[2023-01-29 07:38] LABS: VANCOMYCIN LEVEL TROUGH 11.6 UG/ML (10.0-20.0)
[2023-01-29] MEDS: COMBIVENT RESPIMAT 100-20MCG INHALER 4GM INH SCH ×3 (07:46→19:37)
[2023-01-29] MEDS: TIOTROPIUM INHALER/CAPSULE (SPIRIVA) INH SCH (07:46)
[2023-01-29] MEDS: FLUTICASONE HFA 220 MCG 12 GM INHALER (FLOVENT) INH SCH ×2 (07:46→19:38)
[2023-01-29 08:13] LABS: BLOOD UREA NITROGEN 26 MG/DL (9-23); CALCIUM LEVEL 8.3 MG/DL (8.3-10.6); CARBON DIOXIDE LEVEL 22 MMOL/L (20-31); CHLORIDE LEVEL 109 MMOL/L (98-107); CREATININE FOR GFR 0.73 MG/DL (0.70-1.30); GLOMERULAR FILTRATION RATE > 60.0 (>42); GLUCOSE, FASTING 199 MG/DL (74-106); POTASSIUM SERUM 4.7 MMOL/L (3.5-5.1); SODIUM LEVEL 139 MMOL/L (136-145)
[2023-01-29] MEDS: SODIUM CHLORIDE 0.9% INJ 10 ML SYR IV PRN (08:19)
[2023-01-29] MEDS: VANCOMYCIN HCL 1,000 MG, VIAL MATE ADAPTER 1 EACH in D5W 250 ML IV SCH (08:19)
[2023-01-29] MEDS: REMEDY PHYTOPLEX Z-GUARD PASTE 113GM TUBE (FROM STOREROOM PRODUCT) TOP SCH ×3 (09:00→19:21)
[2023-01-29] MEDS: APIXABAN 5 MG TAB (ELIQUIS) PO SCH ×2 (09:25→19:44)
[2023-01-29] MEDS: FUROSEMIDE 20 MG TAB PO SCH (12:02)
[2023-01-29 14:00] VITALS: BP 134/63; TEMP 97.1; O2SAT 95
[2023-01-29] MEDS: SENNA 8.6 MG TAB (SENOKOT) PO SCH (19:20)
[2023-01-29] MEDS: FINASTERIDE 5MG TAB PO SCH (19:44)
[2023-01-29] MEDS: TAMSULOSIN 0.4 MG CAP PO SCH (19:44)
[2023-01-29] MEDS: zolPIDEM TARTRATE 5 MG TAB PO SCH (19:44)
[2023-01-29] MEDS: ATORVASTATIN 20 MG TAB PO SCH (19:45)
[2023-01-29 20:00] VITALS: BP 145/65; TEMP 97.4; O2SAT 99
[2023-01-30 06:00] VITALS: BP 140/70; TEMP 97.8; O2SAT 98
[2023-01-30] MEDS: SODIUM CHLORIDE 0.9% INJ 10 ML SYR IV SCH (06:01)
[2023-01-30] MEDS: LEVOTHYROXINE 25MCG TABLET (0.025MG) PO SCH (06:01)
[2023-01-30] MEDS: TIOTROPIUM INHALER/CAPSULE (SPIRIVA) INH SCH (07:44)
[2023-01-30] MEDS: FLUTICASONE HFA 220 MCG 12 GM INHALER (FLOVENT) INH SCH (07:44)
[2023-01-30] MEDS: COMBIVENT RESPIMAT 100-20MCG INHALER 4GM INH SCH (07:44)
[2023-01-30] MEDS: DULoxetine 30MG CAPSULE (CYMBALTA) PO SCH (08:17)
[2023-01-30] MEDS: MAGNESIUM OXIDE 400MG TAB (MAG-OX) PO SCH (08:17)
[2023-01-30] MEDS: ASPIRIN 81MG ENTERIC TABLET PO SCH (08:17)
[2023-01-30] MEDS: SUCRALFATE 1 GM TAB PO SCH ×2 (08:17→12:06)
[2023-01-30] MEDS: GABAPENTIN 300 MG CAP PO SCH (08:17)
[2023-01-30] MEDS: THIAMINE 100 MG TAB PO SCH (08:17)
[2023-01-30] MEDS: ACETAMINOPHEN 500 MG TAB PO SCH (08:18)
[2023-01-30] MEDS: LACTOBACILLUS ACIDOPHILUS CAP (BACID) PO SCH (08:18)
[2023-01-30] MEDS: POTASSIUM CHLORIDE 10MEQ SR TABLET PO SCH (08:18)
[2023-01-30] MEDS: APIXABAN 5 MG TAB (ELIQUIS) PO SCH (08:18)
[2023-01-30] MEDS: PANTOPRAZOLE 40MG TAB (PROTONIX) PO SCH (08:18)
[2023-01-30] MEDS: INSULIN LISPRO (NovoLOG) PER UNIT SC SCH ×2 (08:19→12:07)
[2023-01-30] MEDS: REMEDY PHYTOPLEX Z-GUARD PASTE 113GM TUBE (FROM STOREROOM PRODUCT) TOP SCH (08:19)
[2023-01-30] MEDS: LEVEMIR (INSULIN DETEMIR) 1 UNITS/0.01ML SC SCH (08:19)
[2023-01-30] MEDS: VANCOMYCIN HCL 1,000 MG, VIAL MATE ADAPTER 1 EACH in D5W 250 ML IV SCH (08:20)
[2023-01-30] MEDS: DOCUSATE SODIUM 100MG CAPSULE PO SCH (09:00)
[2023-01-30] MEDS: FUROSEMIDE 20 MG TAB PO SCH (12:00)
[2023-01-30 14:00] VITALS: BP 132/72; TEMP 97.6; O2SAT 98
== END 2023-01-30 14:45 | disposition short-term general hospital (02) | DRG 949 ==
LOC: M PM&R 17:28
PROVIDERS: ADMIT Physical Medicine & Rehabilitation; ATTEND Physical Medicine & Rehabilitation
PROC: 02HV33Z Insertion of Infusion Device into Superior Vena Cava, Percutaneous Approach (ICD-10-PCS; 2023-01-22)
PROC: 30233N1 Transfusion of Nonautologous Red Blood Cells into Peripheral Vein, Percutaneous Approach (ICD-10-PCS; principal; 2023-01-24)
DX: T84.59XD Infection and inflammatory reaction due to other internal joint prosthesis, subsequent encounter (principal); L89.013 Pressure ulcer of right elbow, stage 3; I50.32 Chronic diastolic (congestive) heart failure; I13.0 Hypertensive heart and chronic kidney disease with heart failure and stage 1 through stage 4 chronic kidney disease, or unspecified chronic kidney disease; M86.9 Osteomyelitis, unspecified; L97.429 Non-pressure chronic ulcer of left heel and midfoot with unspecified severity; J44.9 Chronic obstructive pulmonary disease, unspecified; I48.0 Paroxysmal atrial fibrillation; E78.5 Hyperlipidemia, unspecified; E11.42 Type 2 diabetes mellitus with diabetic polyneuropathy; E03.9 Hypothyroidism, unspecified; N40.0 Benign prostatic hyperplasia without lower urinary tract symptoms; F41.9 Anxiety disorder, unspecified; F10.20 Alcohol dependence, uncomplicated; F32.A Depression, unspecified; E11.621 Type 2 diabetes mellitus with foot ulcer; E11.69 Type 2 diabetes mellitus with other specified complication; E11.628 Type 2 diabetes mellitus with other skin complications; R13.10 Dysphagia, unspecified; N18.9 Chronic kidney disease, unspecified; E11.22 Type 2 diabetes mellitus with diabetic chronic kidney disease; K21.9 Gastro-esophageal reflux disease without esophagitis; R29.6 Repeated falls; G47.00 Insomnia, unspecified; F17.200 Nicotine dependence, unspecified, uncomplicated; Z96.612 Presence of left artificial shoulder joint; Z79.01 Long term (current) use of anticoagulants; Z79.82 Long term (current) use of aspirin; Z79.2 Long term (current) use of antibiotics; Z79.4 Long term (current) use of insulin; Z79.890 Hormone replacement therapy; Z79.899 Other long term (current) drug therapy; Z74.09 Other reduced mobility; Z74.1 Need for assistance with personal care; Z90.49 Acquired absence of other specified parts of digestive tract

== ENCOUNTER → 2023-02-11 | Outpatient (CLI) | payer MEDICARE ==
[~2023-02-11] MED LIST changes: +AMBI5TAB PO; +COMBAER6 INH; +DICL100G10 TOP; -DICL1GEL3 TOP; +FURO20TA2 PO; +GABA-282 PO; -GABA-283 PO; +GABA-284 PO; +POTA-136 PO; +THIA100TA PO; +TIOT18INH INH
== END ==
LOC: M SOG 09:35
PROVIDERS: ATTEND Orthopaedic Surgery
DX: S43.015A Anterior dislocation of left humerus, initial encounter (principal); X58.XXXA Exposure to other specified factors, initial encounter; Y92.9 Unspecified place or not applicable; Y93.9 Activity, unspecified; Y99.9 Unspecified external cause status

== ENCOUNTER → 2023-03-01 | Outpatient (CLI) | payer MEDICARE, BC | LOC: M PAIN 14:30 | PROVIDERS: ATTEND Anesthesiology | DX: E11.42 Type 2 diabetes mellitus with diabetic polyneuropathy (principal); M54.2 Cervicalgia; M25.511 Pain in right shoulder; M25.512 Pain in left shoulder; I10 Essential (primary) hypertension; I48.91 Unspecified atrial fibrillation; E78.00 Pure hypercholesterolemia, unspecified; G47.00 Insomnia, unspecified; E03.9 Hypothyroidism, unspecified; F41.9 Anxiety disorder, unspecified; F32.A Depression, unspecified; E55.9 Vitamin D deficiency, unspecified; K21.9 Gastro-esophageal reflux disease without esophagitis; I25.10 Atherosclerotic heart disease of native coronary artery without angina pectoris; N40.0 Benign prostatic hyperplasia without lower urinary tract symptoms; J44.9 Chronic obstructive pulmonary disease, unspecified; F17.210 Nicotine dependence, cigarettes, uncomplicated; Z79.890 Hormone replacement therapy; Z79.4 Long term (current) use of insulin; Z79.82 Long term (current) use of aspirin; Z79.899 Other long term (current) drug therapy ==

== ENCOUNTER → 2023-03-13 | Outpatient (CLI) | payer MEDICARE, BC | LOC: M PAIN 09:15 | PROVIDERS: ATTEND Anesthesiology | DX: M47.816 Spondylosis without myelopathy or radiculopathy, lumbar region (principal); G62.9 Polyneuropathy, unspecified; E11.9 Type 2 diabetes mellitus without complications; I10 Essential (primary) hypertension; E03.9 Hypothyroidism, unspecified; K21.9 Gastro-esophageal reflux disease without esophagitis; J44.9 Chronic obstructive pulmonary disease, unspecified; F17.210 Nicotine dependence, cigarettes, uncomplicated; Z86.14 Personal history of Methicillin resistant Staphylococcus aureus infection; Z86.59 Personal history of other mental and behavioral disorders; Z79.4 Long term (current) use of insulin; Z79.82 Long term (current) use of aspirin; Z79.890 Hormone replacement therapy; Z79.899 Other long term (current) drug therapy ==

== ENCOUNTER → 2023-03-22 | Outpatient (CLI) | payer MEDICARE, BC | LOC: M PAIN 13:00 | PROVIDERS: ATTEND Anesthesiology | DX: M47.816 Spondylosis without myelopathy or radiculopathy, lumbar region (principal); G89.29 Other chronic pain; E11.9 Type 2 diabetes mellitus without complications; I10 Essential (primary) hypertension; E03.9 Hypothyroidism, unspecified; K21.9 Gastro-esophageal reflux disease without esophagitis; J44.9 Chronic obstructive pulmonary disease, unspecified; F17.210 Nicotine dependence, cigarettes, uncomplicated; Z86.14 Personal history of Methicillin resistant Staphylococcus aureus infection; Z86.59 Personal history of other mental and behavioral disorders; Z79.4 Long term (current) use of insulin; Z79.82 Long term (current) use of aspirin; Z79.890 Hormone replacement therapy; Z79.899 Other long term (current) drug therapy | CPT/HCPCS: 76000; G0463 ==

== ENCOUNTER → 2023-05-17 | Outpatient (CLI) | payer MEDICARE, BC | LOC: M PAIN 11:30 | PROVIDERS: ATTEND Anesthesiology | DX: M47.816 Spondylosis without myelopathy or radiculopathy, lumbar region (principal); E11.9 Type 2 diabetes mellitus without complications; I10 Essential (primary) hypertension; I48.91 Unspecified atrial fibrillation; E78.00 Pure hypercholesterolemia, unspecified; M54.2 Cervicalgia; G47.00 Insomnia, unspecified; E03.9 Hypothyroidism, unspecified; F32.A Depression, unspecified; E55.9 Vitamin D deficiency, unspecified; K21.9 Gastro-esophageal reflux disease without esophagitis; I25.10 Atherosclerotic heart disease of native coronary artery without angina pectoris; J45.909 Unspecified asthma, uncomplicated; F41.9 Anxiety disorder, unspecified; J44.9 Chronic obstructive pulmonary disease, unspecified; N40.0 Benign prostatic hyperplasia without lower urinary tract symptoms; F17.210 Nicotine dependence, cigarettes, uncomplicated; Z79.4 Long term (current) use of insulin; Z79.890 Hormone replacement therapy; Z79.891 Long term (current) use of opiate analgesic; Z79.899 Other long term (current) drug therapy ==

== ENCOUNTER → 2023-05-27 | Outpatient (REF) | payer MEDICARE, BC | LOC: M SFHCWOUN 18:07 | PROVIDERS: ATTEND Surgery | DX: S41.002A Unspecified open wound of left shoulder, initial encounter (principal); X58.XXXA Exposure to other specified factors, initial encounter; Y92.9 Unspecified place or not applicable; Y93.9 Activity, unspecified; Y99.9 Unspecified external cause status ==

== ENCOUNTER 2023-09-28 12:07 | Outpatient (CLI) | payer MEDICARE, BC ==
[~2023-09-28] VITALS: Ht 180.3 cm; Wt 88.7 kg
[2023-09-28 13:15] VITALS: BP 109/49; TEMP 97.7; O2SAT 97
[2023-09-28] MEDS: DAPTOmycin 900 MG in NS 50 ML IV ONE (14:11)
== END 2023-09-28 14:56 | disposition home or self-care (01) ==
LOC: M OPCLI4PV 12:07 → M MSPAV 12:30 → M OPCLI4PV 14:56
PROVIDERS: ATTEND Pediatrics
DX: R53.81 Other malaise (principal); M00.812 Arthritis due to other bacteria, left shoulder; Z16.21 Resistance to vancomycin
CPT/HCPCS: 96365; J0878

== ENCOUNTER 2023-09-29 13:27 | Outpatient (CLI) | payer MEDICARE, BC ==
[~2023-09-29] VITALS: Ht 180.3 cm; Wt 88.4 kg
[2023-09-29 13:41] VITALS: BP 146/65; TEMP 97; O2SAT 99
[2023-09-29] MEDS: DAPTOmycin 900 MG in NS 50 ML IV ONE (15:09)
[2023-09-29 15:40] VITALS: BP 160/80; TEMP 97.2; O2SAT 97
== END 2023-09-29 15:51 | disposition home or self-care (01) ==
LOC: M OPCLI4PV 13:27 → M MSPAV 13:29 → M OPCLI4PV 15:51
PROVIDERS: ATTEND Pediatrics
DX: R53.81 Other malaise (principal); M00.812 Arthritis due to other bacteria, left shoulder; Z16.21 Resistance to vancomycin
CPT/HCPCS: 96365; J0878

== ENCOUNTER 2023-09-30 13:40 | Outpatient (CLI) | payer MEDICARE, BC ==
[~2023-09-30] VITALS: Ht 180.3 cm; Wt 88.4 kg
[~2023-09-30 13:40] MED LIST changes: +SODIUM CHLORIDE 0.9% INJ 10 ML SYR IV PRN; +SODIUM CHLORIDE 0.9% INJ 10 ML SYR IV SCH
[2023-09-30 13:45] VITALS: BP 158/68; O2SAT 98
[2023-09-30] MEDS: DAPTOmycin 900 MG in NS 50 ML IV ONE (14:31)
[2023-09-30] MEDS: SODIUM CHLORIDE 0.9% INJ 10 ML SYR IV SCH (14:34)
[2023-09-30 15:15] VITALS: BP 160/70; O2SAT 97
== END 2023-09-30 15:15 ==
LOC: M INFU 13:40
PROVIDERS: ATTEND Pediatrics
DX: M00.812 Arthritis due to other bacteria, left shoulder (principal); R53.81 Other malaise; Z16.21 Resistance to vancomycin
CPT/HCPCS: 96365; J0878

== ENCOUNTER 2023-10-09 13:25 | Outpatient (CLI) | payer MEDICARE, BC ==
[~2023-10-09] VITALS: Ht 180.3 cm; Wt 86.6 kg
[~2023-10-09 13:25] MED LIST changes: -SODIUM CHLORIDE 0.9% INJ 10 ML SYR IV PRN; -SODIUM CHLORIDE 0.9% INJ 10 ML SYR IV SCH
[2023-10-09 13:45] VITALS: BP 176/73; O2SAT 99
[2023-10-09] MEDS: DAPTOmycin 900 MG in NS 50 ML IV SCH (14:21)
[2023-10-09 14:31] LABS: HEMATOCRIT 28.6 % (42.0-52.0); HEMOGLOBIN 8.5 g/dl (13.5-17.5); MEAN CORPUSCULAR HEMOGLOBIN 25.7 pg (27.0-33.0); MEAN CORPUSCULAR HGB CONC 29.7 g/dl (32.0-36.5); MEAN CORPUSCULAR VOLUME 86.4 fl (80.0-96.0); PLATELET COUNT, AUTOMATED 245 10^3/uL (150-450); RED BLOOD COUNT 3.31 10^6/uL (4.30-6.10); WHITE BLOOD COUNT 9.1 10^3/uL (4.0-10.0)
[2023-10-09 15:15] VITALS: BP 178/71; O2SAT 97
[2023-10-09 15:28] LABS: CPK CREATINE PHOSPHOKINASE 55 U/L (46-171)
[2023-10-09 15:29] LABS: ALBUMIN 3.3 G/DL (3.2-5.2); ALKALINE PHOSPHATASE 83 U/L (46-116); ALT/SGPT 13 U/L (7.0-40); AST/SGOT 12 U/L (<34); BILIRUBIN,TOTAL 0.4 MG/DL (0.3-1.2); BLOOD UREA NITROGEN 28 MG/DL (9-23); CALCIUM LEVEL 8.4 MG/DL (8.3-10.6); CARBON DIOXIDE LEVEL 22 MMOL/L (20-31); CHLORIDE LEVEL 110 MMOL/L (98-107); CREATININE FOR GFR 0.98 MG/DL (0.70-1.30); GLOMERULAR FILTRATION RATE > 60.0 (>42); GLUCOSE, FASTING 157 MG/DL (74-106); POTASSIUM SERUM 4.3 MMOL/L (3.5-5.1); SODIUM LEVEL 140 MMOL/L (136-145); TOTAL PROTEIN 6.3 G/DL (5.7-8.2)
== END 2023-10-09 15:18 ==
LOC: M INFU 13:25
PROVIDERS: ATTEND Student in an Organized Health Care Education/Training Program
DX: M00.812 Arthritis due to other bacteria, left shoulder (principal); M53.81 Other specified dorsopathies, occipito-atlanto-axial region; Z16.21 Resistance to vancomycin; Z88.1 Allergy status to other antibiotic agents
CPT/HCPCS: 80053; 82550; 85027; 96365; J0878

== ENCOUNTER 2023-10-10 14:09 | Outpatient (CLI) | payer MEDICARE, BC ==
[~2023-10-10 14:09] MED LIST changes: +DAPTOmycin 900 MG in NS 50 ML IV ONE
[2023-10-10 14:20] VITALS: BP 177/79; O2SAT 97
[2023-10-10] MEDS: DAPTOmycin 900 MG in NS 50 ML IV ONE (15:28)
[2023-10-10] MEDS: SODIUM CHLORIDE 0.9% INJ 10 ML SYR IV SCH (16:12)
[2023-10-10 16:16] VITALS: BP 178/77; O2SAT 99
== END 2023-10-10 16:18 ==
LOC: M INFU 14:09
PROVIDERS: ATTEND Student in an Organized Health Care Education/Training Program
DX: M00.812 Arthritis due to other bacteria, left shoulder (principal); M53.81 Other specified dorsopathies, occipito-atlanto-axial region; Z16.21 Resistance to vancomycin; Z88.1 Allergy status to other antibiotic agents
CPT/HCPCS: 96365; J0878

== ENCOUNTER 2023-10-11 13:30 | Outpatient (CLI) | payer MEDICARE, BC ==
[~2023-10-11] VITALS: Ht 180.3 cm; Wt 86.6 kg
[~2023-10-11 13:30] MED LIST changes: -DAPTOmycin 900 MG in NS 50 ML IV ONE
[2023-10-11 13:51] VITALS: BP 183/77; O2SAT 98
[2023-10-11] MEDS: DAPTOmycin 900 MG in NS 50 ML IV ONE (14:39)
[2023-10-11 15:00] VITALS: BP 189/81; O2SAT 98
[2023-10-11] MEDS: SODIUM CHLORIDE 0.9% INJ 10 ML SYR IV PRN (15:00)
[2023-10-11] MEDS ORDERED: SODIUM CHLORIDE 0.9% INJ 10 ML SYR IV SCH (18:00)
== END 2023-10-11 15:15 ==
LOC: M INFU 13:30
PROVIDERS: ATTEND Student in an Organized Health Care Education/Training Program
DX: M00.812 Arthritis due to other bacteria, left shoulder (principal); M53.81 Other specified dorsopathies, occipito-atlanto-axial region; Z16.21 Resistance to vancomycin
CPT/HCPCS: 96365; J0878

== ENCOUNTER → 2023-10-15 | Outpatient (CLI) | payer MEDICARE, BC ==
[2023-10-15 15:53] LABS: BASO # 0.1 10^3/uL (0.0-0.2); BASO % 0.6 % (0.0-1.0); EOS # 0.5 10^3/uL (0.0-0.5); EOS % 5.6 % (0.0-3.0); HEMOGLOBIN 9.4 g/dl (13.5-17.5); LYMPH # 1.6 10^3/uL (1.5-5.0); LYMPH % 16.9 % (24.0-44.0); MEAN CORPUSCULAR HEMOGLOBIN 25.3 pg (27.0-33.0); MEAN CORPUSCULAR HGB CONC 29.4 g/dl (32.0-36.5); MEAN CORPUSCULAR VOLUME 86.3 fl (80.0-96.0); MONO # 0.7 10^3/uL (0.0-0.8); MONO % 7.2 % (2.0-8.0); NEUTROPHILS # 6.7 10^3/uL (1.5-8.5); NEUTROPHILS % 69.1 % (36.0-66.0); PLATELET COUNT, AUTOMATED 311 10^3/uL (150-450); RED BLOOD COUNT 3.71 10^6/uL (4.30-6.10); WHITE BLOOD COUNT 9.6 10^3/uL (4.0-10.0)
[2023-10-15 15:58] LABS: ERYTHROCYTE SEDIMENTATION RATE 14 mm/hr (0-20)
== END ==
LOC: M PLALAB 12:00
PROVIDERS: ATTEND Internal Medicine Infectious Disease
DX: T84.50XA Infection and inflammatory reaction due to unspecified internal joint prosthesis, initial encounter (principal)

== ENCOUNTER → 2023-10-25 | Outpatient (CLI) | payer OTHER, MEDICARE, BC ==
[~2023-10-25] MED LIST changes: +ISOVUE-370 76% 100ML VIAL As Ordered ONE
== END ==
LOC: M RAD 08:42
PROVIDERS: ATTEND Physician Assistant
DX: I70.0 Atherosclerosis of aorta (principal); I70.203 Unspecified atherosclerosis of native arteries of extremities, bilateral legs
CPT/HCPCS: 75635; Q9967

== ENCOUNTER → 2024-03-12 | Outpatient (CLI) | payer MEDICARE, BC ==
[~2024-03-12] MED LIST changes: +DAILTAB63 PO; +GABA-1172 PO; -GABA-282 PO; -GLIM1TAB4 PO; +GLIM1TAB84 PO; -ISOVUE-370 76% 100ML VIAL As Ordered ONE; +LEVO1TAB40 PO; -NICO-256 PO; +NICO-392 PO; +SELF1KIT MC; +THIA100T7 PO; +VENTAER INH
[2024-03-12 12:23] LABS: BASO # 0.1 10^3/uL (0.0-0.2); BASO % 0.9 % (0.0-1.0); EOS # 0.6 10^3/uL (0.0-0.5); EOS % 4.9 % (0.0-3.0); HEMATOCRIT 38.2 % (42.0-52.0); HEMOGLOBIN 11.5 g/dl (13.5-17.5); LYMPH # 2.8 10^3/uL (1.5-5.0); MEAN CORPUSCULAR HEMOGLOBIN 25.8 pg (27.0-33.0); MEAN CORPUSCULAR HGB CONC 30.1 g/dl (32.0-36.5); MEAN CORPUSCULAR VOLUME 85.7 fl (80.0-96.0); MONO # 1.2 10^3/uL (0.0-0.8); MONO % 10.5 % (2.0-8.0); NEUTROPHILS # 6.9 10^3/uL (1.5-8.5); NEUTROPHILS % 58.8 % (36.0-66.0); PLATELET COUNT, AUTOMATED 290 10^3/uL (150-450); RED BLOOD COUNT 4.46 10^6/uL (4.30-6.10); WHITE BLOOD COUNT 11.8 10^3/uL (4.0-10.0)
[2024-03-12 12:40] LABS: ERYTHROCYTE SEDIMENTATION RATE 31 mm/hr (0-20)
== END ==
LOC: M PLALAB 09:00
PROVIDERS: ATTEND Internal Medicine Infectious Disease
DX: S51.001A Unspecified open wound of right elbow, initial encounter (principal); Y93.9 Activity, unspecified; Y92.9 Unspecified place or not applicable

== ENCOUNTER 2024-04-07 14:22 | Inpatient (IN) | payer BC, MEDICARE, OTHER ==
[~2024-04-07] VITALS: Ht 180.3 cm; Wt 84.5 kg
[~2024-04-07 14:22] MED LIST changes: -DAILTAB63 PO; -LEVO1TAB40 PO; +NICO-256 PO; -NICO-392 PO; -SELF1KIT MC; -THIA100T7 PO; -VENTAER INH
[2024-04-07 15:55] LABS: BASO # 0.1 10^3/uL (0.0-0.2); BASO % 0.5 % (0.0-1.0); EOS # 0.2 10^3/uL (0.0-0.5); EOS % 1.1 % (0.0-3.0); HEMATOCRIT 36.8 % (42.0-52.0); HEMOGLOBIN 11.7 g/dl (13.5-17.5); LYMPH # 1.9 10^3/uL (1.5-5.0); LYMPH % 12.5 % (24.0-44.0); MEAN CORPUSCULAR HEMOGLOBIN 25.9 pg (27.0-33.0); MEAN CORPUSCULAR HGB CONC 31.8 g/dl (32.0-36.5); MEAN CORPUSCULAR VOLUME 81.6 fl (80.0-96.0); MONO # 0.7 10^3/uL (0.0-0.8); MONO % 4.4 % (2.0-8.0); NEUTROPHILS # 12.3 10^3/uL (1.5-8.5); PLATELET COUNT, AUTOMATED 368 10^3/uL (150-450); RED BLOOD COUNT 4.51 10^6/uL (4.30-6.10); WHITE BLOOD COUNT 15.2 10^3/uL (4.0-10.0)
[2024-04-07 16:19] LABS: LIPASE 25 U/L (12-53)
[2024-04-07 16:20] LABS: CPK CREATINE PHOSPHOKINASE 20 U/L (46-171)
[2024-04-07 16:21] LABS: ALBUMIN 3.5 G/DL (3.2-5.2); ALKALINE PHOSPHATASE 211 U/L (46-116); ALT/SGPT 15 U/L (7.0-40); AST/SGOT 9 U/L (<34); BILIRUBIN,DIRECT 0.2 MG/DL (<0.4); BILIRUBIN,TOTAL 0.3 MG/DL (0.3-1.2); BLOOD UREA NITROGEN 18 MG/DL (9-23); CALCIUM LEVEL 8.8 MG/DL (8.3-10.6); CARBON DIOXIDE LEVEL 20 MMOL/L (20-31); CHLORIDE LEVEL 105 MMOL/L (98-107); CREATININE FOR GFR 0.92 MG/DL (0.70-1.30); GLOMERULAR FILTRATION RATE > 60.0 (>42); GLUCOSE, FASTING 212 MG/DL (74-106); POTASSIUM SERUM 4.4 MMOL/L (3.5-5.1); SODIUM LEVEL 137 MMOL/L (136-145); TOTAL PROTEIN 7.2 G/DL (5.7-8.2)
[2024-04-07] MEDS ORDERED: fentaNYL 100 MCG/2 ML INJECTION IV PRN (16:45)
[2024-04-07] MEDS: ONDANSETRON 4MG 2ML VIAL IV ONE (17:09)
[2024-04-07] MEDS ORDERED: LORazepam 2 MG TAB PO PRN (17:10)
[2024-04-07] MEDS: NS 1,000 ML IV ONE (17:10)
[2024-04-07] MEDS: THIAMINE 100 MG TAB PO SCH (17:16)
[2024-04-07] MEDS: MULTIVITAMINS/MINERALS THERAP 1 TAB PO SCH (17:16)
[2024-04-07] MEDS: FOLIC ACID 1MG TAB PO SCH (17:17)
[2024-04-07] MEDS ORDERED: LANTINJ4 SC (17:46)
[2024-04-07] MEDS: PIPERACILLIN/TAZOBACTAM SOD 4.5 GM in DEXTROSE 5% (D5W) ADV/MINI-BAG 50 ML IV ONE (18:03)
[2024-04-07] MEDS: NS 2,520 ML in IV 1 EA IV ONE (18:04)
[2024-04-07] MEDS ORDERED: ISOVUE-370 76% 100ML VIAL As Ordered ONE (18:31)
[2024-04-07] MEDS ORDERED: THIA100T7 PO (18:49)
[2024-04-07] MEDS: LABETALOL 100MG/20ML VIAL IV STA (18:54)
[2024-04-07 23:00] LABS: BASO % 0.4 % (0.0-1.0); EOS # 0.3 10^3/uL (0.0-0.5); EOS % 2.6 % (0.0-3.0); HEMATOCRIT 32.2 % (42.0-52.0); LYMPH # 2.5 10^3/uL (1.5-5.0); LYMPH % 22.3 % (24.0-44.0); MEAN CORPUSCULAR HEMOGLOBIN 25.6 pg (27.0-33.0); MEAN CORPUSCULAR HGB CONC 31.1 g/dl (32.0-36.5); MEAN CORPUSCULAR VOLUME 82.4 fl (80.0-96.0); MONO # 0.7 10^3/uL (0.0-0.8); MONO % 6.6 % (2.0-8.0); NEUTROPHILS # 7.4 10^3/uL (1.5-8.5); NEUTROPHILS % 67.7 % (36.0-66.0); PLATELET COUNT, AUTOMATED 311 10^3/uL (150-450); RED BLOOD COUNT 3.91 10^6/uL (4.30-6.10)
[2024-04-07 23:39] LABS: PROCALCITONIN 0.04 ng/ml
[2024-04-07 23:40] LABS: ALBUMIN 2.9 G/DL (3.2-5.2); ALKALINE PHOSPHATASE 173 U/L (46-116); ALT/SGPT 13 U/L (7.0-40); AST/SGOT 13 U/L (<34); BILIRUBIN,TOTAL 0.4 MG/DL (0.3-1.2); BLOOD UREA NITROGEN 13 MG/DL (9-23); CALCIUM LEVEL 7.8 MG/DL (8.3-10.6); CARBON DIOXIDE LEVEL 22 MMOL/L (20-31); CHLORIDE LEVEL 108 MMOL/L (98-107); CREATININE FOR GFR 0.81 MG/DL (0.70-1.30); GLOMERULAR FILTRATION RATE > 60.0 (>42); GLUCOSE, FASTING 162 MG/DL (74-106); POTASSIUM SERUM 4.2 MMOL/L (3.5-5.1); SODIUM LEVEL 138 MMOL/L (136-145); TOTAL PROTEIN 6.1 G/DL (5.7-8.2)
[2024-04-08] MEDS: LR 1,000 ML IV SCH (00:45)
[2024-04-08] MEDS ORDERED: ACETAMINOPHEN 325 MG TAB PO PRN (01:25)
[2024-04-08] MEDS ORDERED: MOM 30ML SUSPENSION UDC PO PRN (01:25)
[2024-04-08] MEDS: PIPERACILLIN/TAZOBACTAM SOD 3.375 GM in DEXTROSE 5% (D5W) ADV/MINI-BAG 50 ML IV SCH (01:46)
[2024-04-08] MEDS ORDERED: ONDANSETRON 4MG 2ML VIAL IV PRN (01:50)
[2024-04-08] MEDS ORDERED: MORPHINE 4 MG/ML 1ML VIAL IV PRN (01:50)
[2024-04-08] MEDS ORDERED: ACETAMINOPHEN 500 MG TAB PO PRN (01:50)
[2024-04-08] MEDS ORDERED: MORPHINE 2 MG/ML 1ML VIAL IV PRN (01:50)
[2024-04-08] MEDS ORDERED: GLUCAGON INJ 1MG VIAL SC PRN (02:00)
[2024-04-08] MEDS ORDERED: GLUCOSE 4 GM CHEW PO PRN (02:00)
[2024-04-08] MEDS: CAPTOpril 12.5 MG TAB PO ONE (05:16)
[2024-04-08] MEDS: INSULIN LISPRO (NovoLOG) PER UNIT SC SCH ×2 (07:30→18:31)
[2024-04-08 07:33] LABS: LIPASE 22 U/L (12-53)
[2024-04-08 07:35] LABS: ALBUMIN 2.8 G/DL (3.2-5.2); ALKALINE PHOSPHATASE 165 U/L (46-116); ALT/SGPT 11 U/L (7.0-40); AST/SGOT 9 U/L (<34); BILIRUBIN,TOTAL 0.5 MG/DL (0.3-1.2); BLOOD UREA NITROGEN 13 MG/DL (9-23); CALCIUM LEVEL 8.4 MG/DL (8.3-10.6); CARBON DIOXIDE LEVEL 22 MMOL/L (20-31); CHLORIDE LEVEL 109 MMOL/L (98-107); CREATININE FOR GFR 0.81 MG/DL (0.70-1.30); GLOMERULAR FILTRATION RATE > 60.0 (>42); GLUCOSE, FASTING 163 MG/DL (74-106); POTASSIUM SERUM 3.8 MMOL/L (3.5-5.1); SODIUM LEVEL 141 MMOL/L (136-145); TOTAL PROTEIN 5.9 G/DL (5.7-8.2)
[2024-04-08] MEDS: PANTOPRAZOLE 40MG VIAL IV SCH (07:40)
[2024-04-08 07:41] LABS: HEMATOCRIT 32.3 % (42.0-52.0); HEMOGLOBIN 10.1 g/dl (13.5-17.5); MEAN CORPUSCULAR HEMOGLOBIN 25.8 pg (27.0-33.0); MEAN CORPUSCULAR HGB CONC 31.3 g/dl (32.0-36.5); MEAN CORPUSCULAR VOLUME 82.6 fl (80.0-96.0); PLATELET COUNT, AUTOMATED 285 10^3/uL (150-450); RED BLOOD COUNT 3.91 10^6/uL (4.30-6.10); WHITE BLOOD COUNT 10.8 10^3/uL (4.0-10.0)
[2024-04-08] MEDS: METOPROLOL SUCC (TopROL XL) 50MG **XL** TAB PO SCH (07:41)
[2024-04-08] MEDS: DOCUSATE SODIUM 100MG CAPSULE PO SCH (07:48)
[2024-04-08 08:34] LABS: PROCALCITONIN <0.04 ng/ml
[2024-04-08] MEDS ORDERED: FINA5TAB2 PO (08:43)
[2024-04-08] MEDS ORDERED: FLOM0.4C39 PO (08:43)
[2024-04-08] MEDS ORDERED: DAILTAB63 PO (08:44)
[2024-04-08] MEDS ORDERED: VENTAER INH (08:44)
[2024-04-08] MEDS ORDERED: HOME MED LIST COMPLETE! XX SCH (08:50)
[2024-04-08] MEDS: hydrALAZINE 20MG/ML 1ML VIAL IV STA (10:56)
[2024-04-08] MEDS: NITROGLYCERIN 2% OINT 1 GM *U/D* PKT TOP ONE (10:57)
[2024-04-08] MEDS: hydrALAZINE 20MG/ML 1ML VIAL IV SCH ×2 (16:28→21:20)
[2024-04-08] MEDS: hydrALAZINE 20MG/ML 1ML VIAL IV ONE (18:29)
[2024-04-08 20:11] VITALS: BP 178/80; TEMP 98.2; O2SAT 94
[2024-04-08] MEDS: LEVEMIR (INSULIN DETEMIR) 1 UNITS/0.01ML SC SCH (21:00)
[2024-04-08] MEDS ORDERED: INSULIN LISPRO (NovoLOG) PER UNIT SC SCH (21:00)
[2024-04-08 23:30] VITALS: BP 134/63; TEMP 98.4; O2SAT 95
[2024-04-09] VITALS (9 sets, daily range): BP systolic 120–182; BP diastolic 68–84; TEMP 97.8–98.3; O2SAT 92–94
[2024-04-09 06:29] LABS: HEMATOCRIT 32.5 % (42.0-52.0); HEMOGLOBIN 9.8 g/dl (13.5-17.5); MEAN CORPUSCULAR HEMOGLOBIN 25.2 pg (27.0-33.0); MEAN CORPUSCULAR HGB CONC 30.2 g/dl (32.0-36.5); MEAN CORPUSCULAR VOLUME 83.5 fl (80.0-96.0); PLATELET COUNT, AUTOMATED 235 10^3/uL (150-450); RED BLOOD COUNT 3.89 10^6/uL (4.30-6.10); WHITE BLOOD COUNT 9.1 10^3/uL (4.0-10.0)
[2024-04-09 06:55] LABS: BLOOD UREA NITROGEN 9 MG/DL (9-23); CALCIUM LEVEL 8.5 MG/DL (8.3-10.6); CARBON DIOXIDE LEVEL 24 MMOL/L (20-31); CHLORIDE LEVEL 110 MMOL/L (98-107); CREATININE FOR GFR 0.82 MG/DL (0.70-1.30); GLOMERULAR FILTRATION RATE > 60.0 (>42); GLUCOSE, FASTING 132 MG/DL (74-106); POTASSIUM SERUM 3.7 MMOL/L (3.5-5.1); SODIUM LEVEL 141 MMOL/L (136-145)
[2024-04-09] MEDS ORDERED: PANTOPRAZOLE 40MG TAB (PROTONIX) PO ONE (08:25)
[2024-04-09] MEDS ORDERED: ALBUTEROL 90 MCG/ACT 8GM HFA INHALER INH PRN (08:25)
[2024-04-09] MEDS ORDERED: MIRALAX *UNIT DOSE* 17GM PACKET PO PRN (08:25)
[2024-04-09] MEDS ORDERED: PILL CUTTER 1 EACH XX PRN (09:00)
[2024-04-09] MEDS ORDERED: METOPROLOL SUCC (TopROL XL) 50MG **XL** TAB PO SCH (09:00)
[2024-04-09] MEDS: LEVOTHYROXINE 25MCG TABLET (0.025MG) PO SCH (09:10)
[2024-04-09] MEDS: THIAMINE 100 MG TAB PO SCH (09:10)
[2024-04-09] MEDS: MAGNESIUM OXIDE 400MG TAB (MAG-OX) PO SCH (09:10)
[2024-04-09] MEDS: VITAMIN D 1,000 INTERNATIONAL UNITS TABLET PO SCH (09:11)
[2024-04-09] MEDS: GABAPENTIN 100 MG CAP PO SCH (09:11)
[2024-04-09] MEDS: ASPIRIN 81MG ENTERIC TABLET PO SCH (09:11)
[2024-04-09] MEDS: hydrALAZINE 20MG/ML 1ML VIAL IV ONE (09:11)
[2024-04-09] MEDS: INSULIN LISPRO (NovoLOG) PER UNIT SC SCH ×2 (13:59→20:25)
[2024-04-09] MEDS: **hydrALAZINE** 10 MG TAB PO SCH (14:00)
[2024-04-09] MEDS: ISOSORBIDE DIN (ISORDIL) 10MG TAB PO SCH (14:00)
[2024-04-09] MEDS: SUCRALFATE 1 GM TAB PO SCH (14:00)
[2024-04-09] MEDS: LevoFLOXacin 750 MG TABLET PO SCH (14:01)
[2024-04-09] MEDS: LEVEMIR (INSULIN DETEMIR) 1 UNITS/0.01ML SC SCH (20:25)
[2024-04-09] MEDS: TAMSULOSIN 0.4 MG CAP PO SCH (20:32)
[2024-04-09] MEDS: PANTOPRAZOLE 40MG TAB (PROTONIX) PO SCH (20:32)
[2024-04-09] MEDS: FINASTERIDE 5MG TAB PO SCH (20:33)
[2024-04-09] MEDS: ATORVASTATIN 20 MG TAB PO SCH (20:33)
[2024-04-10] VITALS (8 sets, daily range): BP systolic 120–162; BP diastolic 65–93; TEMP 96.8–98.2; O2SAT 93–96
[2024-04-10] MEDS: DEXTROSE 50% 50ML SYRINGE IV PRN (04:52)
[2024-04-10] MEDS: **hydrALAZINE HCL** 25 MG TAB PO ONE (10:00)
[2024-04-10] MEDS: MYCOLOG CREAM 15GM (NYSTATIN/TRIAMCINOLONE) TOP SCH (20:47)
[2024-04-10] MEDS ORDERED: LEVEMIR (INSULIN DETEMIR) 1 UNITS/0.01ML SC SCH (21:00)
[2024-04-11 03:30] VITALS: BP 152/64; TEMP 97.3; O2SAT 96
[2024-04-11 06:09] VITALS: BP 165/75; TEMP 97.7; O2SAT 96
[2024-04-11 10:51] LABS: BASO % 0.3 % (0.0-1.0); EOS # 0.4 10^3/uL (0.0-0.5); EOS % 4.5 % (0.0-3.0); HEMOGLOBIN 8.9 g/dl (13.5-17.5); LYMPH # 1.7 10^3/uL (1.5-5.0); LYMPH % 18.5 % (24.0-44.0); MEAN CORPUSCULAR HEMOGLOBIN 26.2 pg (27.0-33.0); MEAN CORPUSCULAR HGB CONC 30.7 g/dl (32.0-36.5); MEAN CORPUSCULAR VOLUME 85.3 fl (80.0-96.0); MONO # 0.8 10^3/uL (0.0-0.8); NEUTROPHILS % 66.9 % (36.0-66.0); PLATELET COUNT, AUTOMATED 184 10^3/uL (150-450); WHITE BLOOD COUNT 8.9 10^3/uL (4.0-10.0)
[2024-04-11] MEDS: cloNIDine 0.1MG TABLET PO ONE (10:58)
[2024-04-11 11:24] LABS: BLOOD UREA NITROGEN 15 MG/DL (9-23); CALCIUM LEVEL 8.2 MG/DL (8.3-10.6); CARBON DIOXIDE LEVEL 23 MMOL/L (20-31); CHLORIDE LEVEL 110 MMOL/L (98-107); CREATININE FOR GFR 0.75 MG/DL (0.70-1.30); GLOMERULAR FILTRATION RATE > 60.0 (>42); GLUCOSE, FASTING 224 MG/DL (74-106); SODIUM LEVEL 139 MMOL/L (136-145)
[2024-04-11] MEDS: LEVEMIR (INSULIN DETEMIR) 1 UNITS/0.01ML SC ONE (11:57)
[2024-04-11 12:00] VITALS: BP 133/54; TEMP 97.2; O2SAT 97
[2024-04-11] MEDS: ISOSORBIDE DIN (ISORDIL) 10MG TAB PO ONE (12:00)
[2024-04-11 19:50] VITALS: BP_SYST 108; BP_SYST 110; BP_DIAS 68; BP_DIAS 74; TEMP 97.2; TEMP 97.3; O2SAT 97
[2024-04-12 03:40] VITALS: BP 159/73; TEMP 97; O2SAT 97
[2024-04-12 08:41] VITALS: BP 144/76
[2024-04-12] MEDS ORDERED: LEVO1TAB40 PO (10:17)
[2024-04-12] MEDS ORDERED: SELF1KIT MC (10:19)
== END 2024-04-12 12:00 | disposition home or self-care (01) | DRG 872 ==
LOC: M ED 14:22 → EDBD 14:22 → M ED INP 04-08 00:32 → M PCU 04-08 19:54 → M MSPAV 04-10 21:51
PROVIDERS: ADMIT Student in an Organized Health Care Education/Training Program; ATTEND General Practice
DX: A41.9 Sepsis, unspecified organism (principal); N39.0 Urinary tract infection, site not specified; E87.20 Acidosis, unspecified; E10.649 Type 1 diabetes mellitus with hypoglycemia without coma; I10 Essential (primary) hypertension; I48.0 Paroxysmal atrial fibrillation; E78.5 Hyperlipidemia, unspecified; E03.9 Hypothyroidism, unspecified; K21.9 Gastro-esophageal reflux disease without esophagitis; I25.10 Atherosclerotic heart disease of native coronary artery without angina pectoris; J44.9 Chronic obstructive pulmonary disease, unspecified; N40.0 Benign prostatic hyperplasia without lower urinary tract symptoms; F32.A Depression, unspecified; F41.9 Anxiety disorder, unspecified; D64.9 Anemia, unspecified; Z96.612 Presence of left artificial shoulder joint; F17.210 Nicotine dependence, cigarettes, uncomplicated; K80.20 Calculus of gallbladder without cholecystitis without obstruction; Z79.82 Long term (current) use of aspirin; Z79.899 Other long term (current) drug therapy; Z79.4 Long term (current) use of insulin; Z89.411 Acquired absence of right great toe; Z95.2 Presence of prosthetic heart valve; I16.0 Hypertensive urgency

== ENCOUNTER 2024-04-14 19:12 | Emergency (ER) | payer OTHER, MEDICARE, BC ==
[~2024-04-14 19:12] MED LIST changes: +DAILTAB63 PO; +LEVO1TAB40 PO; +SELF1KIT MC; +THIA100T7 PO; +VENTAER INH
[2024-04-14 20:31] LABS: VENOUS BASE EXCESS -7.3 (-2.0-2.0); VENOUS HCO3 18.3 MMOL/L (23.0-27.0); VENOUS O2 SATURATION 73.8 % (60.0-80.0); VENOUS PARTIAL PRESSURE CO2 37.1 mmHg (38.0-50.0); VENOUS PARTIAL PRESSURE O2 40.4 mmHg (30.0-50.0); VENOUS PH 7.311 UNITS (7.330-7.430); VENOUS STANDARD HCO3 18.1 MMOL/L; VENOUS TOTAL CO2 19.4 MMOL/L (24.0-28.0)
[2024-04-14 20:35] LABS: BASO # 0.1 10^3/uL (0.0-0.2); BASO % 0.6 % (0.0-1.0); EOS # 0.4 10^3/uL (0.0-0.5); EOS % 4.9 % (0.0-3.0); HEMATOCRIT 30.4 % (42.0-52.0); HEMOGLOBIN 9.4 g/dl (13.5-17.5); LYMPH # 2.3 10^3/uL (1.5-5.0); LYMPH % 28.7 % (24.0-44.0); MEAN CORPUSCULAR HEMOGLOBIN 26.2 pg (27.0-33.0); MEAN CORPUSCULAR HGB CONC 30.9 g/dl (32.0-36.5); MEAN CORPUSCULAR VOLUME 84.7 fl (80.0-96.0); MONO # 1.1 10^3/uL (0.0-0.8); MONO % 14.4 % (2.0-8.0); NEUTROPHILS % 50.4 % (36.0-66.0); PLATELET COUNT, AUTOMATED 213 10^3/uL (150-450); RED BLOOD COUNT 3.59 10^6/uL (4.30-6.10); WHITE BLOOD COUNT 7.9 10^3/uL (4.0-10.0)
[2024-04-14 21:00] LABS: CK-MB VALUE MASS 1.7 NG/ML (<3.6); LIPASE 44 U/L (12-53)
[2024-04-14 21:02] LABS: CPK CREATINE PHOSPHOKINASE 46 U/L (46-171); MB/CK RELATIVE INDEX 3.69 (< OR =4)
[2024-04-14 21:05] LABS: ALKALINE PHOSPHATASE 109 U/L (46-116); ALT/SGPT 13 U/L (7.0-40); AST/SGOT 8 U/L (<34); BILIRUBIN,DIRECT < 0.1 MG/DL (<0.4); BILIRUBIN,TOTAL 0.2 MG/DL (0.3-1.2); BLOOD UREA NITROGEN 23 MG/DL (9-23); CALCIUM LEVEL 9.3 MG/DL (8.3-10.6); CARBON DIOXIDE LEVEL 21 MMOL/L (20-31); CHLORIDE LEVEL 110 MMOL/L (98-107); CREATININE FOR GFR 0.95 MG/DL (0.70-1.30); GLOMERULAR FILTRATION RATE > 60.0 (>42); GLUCOSE, FASTING 300 MG/DL (74-106); POTASSIUM SERUM 4.3 MMOL/L (3.5-5.1); SODIUM LEVEL 142 MMOL/L (136-145); TOTAL PROTEIN 6.5 G/DL (5.7-8.2)
[2024-04-14] MEDS: HumuLIN R (REGULAR) INSULIN (NovoLIN R) **100U/ML** PER UNIT IV ONE (22:39)
[2024-04-14 23:20] LABS: CK-MB VALUE MASS 1.8 NG/ML (<3.6)
[2024-04-14 23:21] LABS: MB/CK RELATIVE INDEX 4.28 (< OR =4)
[2024-04-15 00:45] LABS: MB/CK RELATIVE INDEX 5.12 (< OR =4)
[2024-04-15] MEDS: amLODIPine 5 MG TAB PO ONE (00:52)
[2024-04-15 00:53] VITALS: BP 212/105
[2024-04-15] MEDS: LABETALOL 100MG/20ML VIAL IV STA (00:53)
[2024-04-15 01:35] VITALS: BP 160/90; TEMP 97.7; O2SAT 96
== END 2024-04-15 01:47 | disposition home or self-care (01) ==
LOC: EDBD 19:12 → M ED 19:12
DX: E11.65 Type 2 diabetes mellitus with hyperglycemia (principal); I10 Essential (primary) hypertension; I48.91 Unspecified atrial fibrillation; I44.0 Atrioventricular block, first degree; E78.5 Hyperlipidemia, unspecified; J44.9 Chronic obstructive pulmonary disease, unspecified; D64.9 Anemia, unspecified; E03.9 Hypothyroidism, unspecified; K21.9 Gastro-esophageal reflux disease without esophagitis; N40.0 Benign prostatic hyperplasia without lower urinary tract symptoms; F41.9 Anxiety disorder, unspecified; Z79.1 Long term (current) use of non-steroidal anti-inflammatories (NSAID); Z79.51 Long term (current) use of inhaled steroids; Z79.4 Long term (current) use of insulin; Z79.810 Long term (current) use of selective estrogen receptor modulators (SERMs); Z79.899 Other long term (current) drug therapy
CPT/HCPCS: 71046; 80048; 80076; 82550; 82553; 82803; 83690; 84484; 85025; 93005; 93041; 96374; 96375; 99285; J1815; J1920

== ENCOUNTER 2024-07-15 23:12 | Inpatient (IN) | payer MEDICARE, BC, OTHER ==
[~2024-07-15] VITALS: Ht 180.3 cm; Wt 98.4 kg
[~2024-07-15 23:12] MED LIST changes: -NICO-256 PO; +NICO-392 PO
[2024-07-15 23:41] LABS: VENOUS BASE EXCESS -14.1 (-2.0-2.0); VENOUS HCO3 10.8 MMOL/L (23.0-27.0); VENOUS O2 SATURATION 96.4 % (60.0-80.0); VENOUS PH 7.272 UNITS (7.330-7.430); VENOUS STANDARD HCO3 13.7 MMOL/L; VENOUS TOTAL CO2 11.6 MMOL/L (24.0-28.0)
[2024-07-15 23:57] LABS: INR 1.19; PARTIAL THROMBOPLASTIN TIME 29.3 SECONDS (24.8-34.2); PROTHROMBIN TIME 15.4 SECONDS (12.5-14.5)
[2024-07-16] VITALS (65 sets, daily range): BP systolic 57–176; BP diastolic 34–111; TEMP 93.7–100.2; O2SAT 72–100
[2024-07-16 00:04] LABS: CK-MB VALUE MASS 5.3 NG/ML (<3.6)
[2024-07-16 00:06] LABS: BLOOD UREA NITROGEN 84 MG/DL (9-23); CALCIUM LEVEL 8.5 MG/DL (8.3-10.6); CARBON DIOXIDE LEVEL 12 MMOL/L (20-31); CHLORIDE LEVEL 106 MMOL/L (98-107); CREATININE FOR GFR 3.43 MG/DL (0.70-1.30); GLOMERULAR FILTRATION RATE 18.9 (>42); GLUCOSE, FASTING 278 MG/DL (74-106); POTASSIUM SERUM 4.1 MMOL/L (3.5-5.1); SODIUM LEVEL 145 MMOL/L (136-145)
[2024-07-16 00:29] LABS: CPK CREATINE PHOSPHOKINASE 117 U/L (46-171); MB/CK RELATIVE INDEX 4.52 (< OR =4)
[2024-07-16 00:30] LABS: BASO # 0.1 10^3/uL (0.0-0.2); BASO % 0.9 % (0.0-1.0); EOS # 0.2 10^3/uL (0.0-0.5); EOS % 1.5 % (0.0-3.0); HEMATOCRIT 40.9 % (42.0-52.0); HEMOGLOBIN 12.9 g/dl (13.5-17.5); LYMPH # 1.7 10^3/uL (1.5-5.0); LYMPH % 13.5 % (24.0-44.0); MEAN CORPUSCULAR HEMOGLOBIN 27.6 pg (27.0-33.0); MEAN CORPUSCULAR HGB CONC 31.5 g/dl (32.0-36.5); MEAN CORPUSCULAR VOLUME 87.6 fl (80.0-96.0); MONO # 1.7 10^3/uL (0.0-0.8); MONO % 13.3 % (2.0-8.0); NEUTROPHILS # 8.3 10^3/uL (1.5-8.5); NEUTROPHILS % 66.4 % (36.0-66.0); PLATELET COUNT, AUTOMATED 240 10^3/uL (150-450); RED BLOOD COUNT 4.67 10^6/uL (4.30-6.10); WHITE BLOOD COUNT 12.6 10^3/uL (4.0-10.0)
[2024-07-16] MEDS: NS (Normal Saline) 0.9% 2,320 ML in IV 1 EA IV ONE (00:33)
[2024-07-16] MEDS: PIPERACILLIN/TAZOBACTAM SOD 3.375 GM in DEXTROSE 5% (D5W) ADV/MINI-BAG 50 ML IV ONE (00:34)
[2024-07-16 01:12] LABS: KETONE, URINE AUTO RFX 1+ mg/dL (NEGATIVE); LEUKOCYTE ESTERASE UR AUTO RFX NEGATIVE (NEGATIVE); NITRITE, URINE AUTO RFX NEGATIVE (NEGATIVE); RBC, URINE AUTO RFX TNTC /HPF (0-3); SQUAM EPITHELIAL CELL UR AURFX 0 /HPF (0-6)
[2024-07-16 01:24] LABS: WBC, URINE AUTO RFX 39 /HPF (0-3)
[2024-07-16 01:33] LABS: AMPHETAMINES LEVEL URINE NEGATIVE (NEGATIVE); BARBITURATES URINE NEGATIVE (NEGATIVE); BENZODIAZEPINES URINE NEGATIVE (NEGATIVE); CANNABINOIDS URINE NEGATIVE (NEGATIVE); COCAINE METABOLITE URINE NEGATIVE (NEGATIVE); METHADONE URINE NEGATIVE (NEGATIVE); OPIATES URINE NEGATIVE (NEGATIVE); PHENCYCLIDINE URINE NEGATIVE (NEGATIVE)
[2024-07-16 03:08] LABS: ETHYL ALCOHOL (ETHANOL) < 0.003 % (0.000-0.010)
[2024-07-16 04:05] LABS: CK-MB VALUE MASS 4.3 NG/ML (<3.6)
[2024-07-16 04:06] LABS: MB/CK RELATIVE INDEX 5.18 (< OR =4)
[2024-07-16] MEDS ORDERED: fentaNYL CITRATE 1,000 MCG in NS 80 ML IV SCH (05:00)
[2024-07-16] MEDS ORDERED: MOM 30ML SUSPENSION UDC PO PRN (05:05)
[2024-07-16] MEDS ORDERED: PIPERACILLIN/TAZOBACTAM SOD 3.375 GM in DEXTROSE 5% (D5W) ADV/MINI-BAG 50 ML IV SCH (05:05)
[2024-07-16] MEDS ORDERED: GLUCOSE 4 GM CHEW PO PRN ×2 (05:35→19:30)
[2024-07-16] MEDS ORDERED: GLUCAGON INJ 1MG VIAL SC PRN ×2 (05:35→19:30)
[2024-07-16] MEDS: NS (Normal Saline) 0.9% 1,000 ML IV SCH (05:59)
[2024-07-16] MEDS: cefTRIAXone SOD 2 GM in DEXTROSE 5% (D5W) ADV/MINI-BAG 50 ML IV SCH (05:59)
[2024-07-16] MEDS ORDERED: [UNRECOGNIZED DRUG - CODE] TEETH (06:19)
[2024-07-16] MEDS ORDERED: GLUT40GE PO (06:19)
[2024-07-16] MEDS ORDERED: HOME MED LIST COMPLETE! XX SCH (06:20)
[2024-07-16] MEDS ORDERED: NORCO, ANEXSIA 5/325MG TABLET (HYDROcodone/ACETAMINOPHEN) PO PRN (06:25)
[2024-07-16 07:01] LABS: HEMATOCRIT 37.2 % (42.0-52.0); HEMOGLOBIN 11.7 g/dl (13.5-17.5); MEAN CORPUSCULAR HEMOGLOBIN 27.1 pg (27.0-33.0); MEAN CORPUSCULAR HGB CONC 31.5 g/dl (32.0-36.5); MEAN CORPUSCULAR VOLUME 86.3 fl (80.0-96.0); PLATELET COUNT, AUTOMATED 200 10^3/uL (150-450); RED BLOOD COUNT 4.31 10^6/uL (4.30-6.10); WHITE BLOOD COUNT 11.8 10^3/uL (4.0-10.0)
[2024-07-16 07:14] LABS: ALBUMIN 2.1 G/DL (3.2-5.2); ALKALINE PHOSPHATASE 165 U/L (40-129); ALT/SGPT 20 U/L (7.0-40); AST/SGOT 21 U/L (<34); BILIRUBIN,TOTAL 0.5 MG/DL (0.3-1.2); BLOOD UREA NITROGEN 83 MG/DL (9-23); CALCIUM LEVEL 7.9 MG/DL (8.3-10.6); CARBON DIOXIDE LEVEL 12 MMOL/L (20-31); CHLORIDE LEVEL 106 MMOL/L (98-107); GLOMERULAR FILTRATION RATE 19.7 (>42); GLUCOSE, FASTING 245 MG/DL (74-106); POTASSIUM SERUM 3.7 MMOL/L (3.5-5.1); SODIUM LEVEL 148 MMOL/L (136-145); TOTAL PROTEIN 5.9 G/DL (5.7-8.2)
[2024-07-16] MEDS: INSULIN LISPRO (NovoLOG) PER UNIT SC STA (07:18)
[2024-07-16] MEDS: INSULIN LISPRO (NovoLOG) PER UNIT SC SCH ×2 (07:30)
[2024-07-16] MEDS: PANTOPRAZOLE 40MG VIAL IV SCH (07:54)
[2024-07-16 07:57] LABS: ACETONE/KETONE > 4.50 MMOL/L (0.02-0.27)
[2024-07-16] MEDS: KCL 20MEQ in NS 1000ML 1,000 ML IV SCH (07:58)
[2024-07-16] MEDS ORDERED: INSULIN REGULAR IN 0.9 % NACL 100 UNIT in IV 1 EA IV SCH (08:05)
[2024-07-16] MEDS: ONDANSETRON 4MG 2ML VIAL IV PRN (08:32)
[2024-07-16] MEDS: HEPARIN SOD (PORCINE) 5000UNITS/ML 1ML VIAL/SYRINGE SQ SCH (08:48)
[2024-07-16] MEDS ORDERED: ENOXAPARIN 30MG/0.3ML SYRINGE (J1650 PER 10MG) SC SCH (09:00)
[2024-07-16] MEDS: KCL 10MEQ/100ML SWI (KRUN) 10 MEQ in IV 1 EA IV SCH (09:47)
[2024-07-16] MEDS ORDERED: SODIUM BICARBONATE 8.4% INJ 50ML SYRINGE As Ordered ONE (10:51)
[2024-07-16] MEDS ORDERED: HumuLIN R (REGULAR) INSULIN (NovoLIN R) **100U/ML** PER UNIT As Ordered ONE (10:52)
[2024-07-16] MEDS: DEXTROSE 50% 50ML SYRINGE IV PRN (10:52)
[2024-07-16] MEDS: HumuLIN R (REGULAR) INSULIN (NovoLIN R) **100U/ML** PER UNIT IV STA (10:58)
[2024-07-16] MEDS ORDERED: MIDAZOLAM INJ 2MG/2ML VIAL As Ordered ONE (11:19)
[2024-07-16] MEDS: MIDAZOLAM INJ 2MG/2ML VIAL IV STA (11:20)
[2024-07-16] MEDS: ROCURONIUM BROMIDE 50MG/5ML VIAL IV ONE (11:20)
[2024-07-16] MEDS: SODIUM BICARBONATE 8.4% INJ 50ML SYRINGE IV STA (11:23)
[2024-07-16] MEDS: NS (Normal Saline) 0.9% 1,000 ML IV ONE (11:25)
[2024-07-16] MEDS: NOREPINEPHRINE 4MG IN D5 250ML 4 MG in IV 1 EA IV SCH (11:32)
[2024-07-16] MEDS: THIAMINE 100 MG TAB PO SCH (12:00)
[2024-07-16] MEDS: METOPROLOL TART 25 MG TABLET PO SCH (12:00)
[2024-07-16] MEDS: CYANOCOBALAMIN 1,000MCG/ML 1ML VIAL IM SCH (12:00)
[2024-07-16] MEDS: FOLIC ACID 1MG TAB PO SCH (12:00)
[2024-07-16 12:22] LABS: ABG BASE EXCESS -10.1 (-2.0-2.0); ABG HCO3 19.6 MMOL/L (22.0-26.0); ABG O2 SATURATION 95.8 % (95.0-99.0); ABG PARTIAL PRESSURE O2 101.8 mmHg (75.0-100.0); ABG STANDARD HCO3 16.4 MMOL/L. (22.0-26.0); ABG TOTAL CO2 21.5 MMOL/L (23.0-31.0)
[2024-07-16 12:24] LABS: ABG PARTIAL PRESSURE CO2 61.3 mmHg (35.0-45.0); ABG pH (ARTERIAL) 7.122 UNITS (7.350-7.450)
[2024-07-16 12:28] LABS: BASO % 0.2 % (0.0-1.0); EOS # 0.1 10^3/uL (0.0-0.5); EOS % 0.9 % (0.0-3.0); HEMATOCRIT 22.5 % (42.0-52.0); LYMPH # 1.6 10^3/uL (1.5-5.0); LYMPH % 23.9 % (24.0-44.0); MEAN CORPUSCULAR HEMOGLOBIN 28.1 pg (27.0-33.0); MEAN CORPUSCULAR HGB CONC 31.1 g/dl (32.0-36.5); MEAN CORPUSCULAR VOLUME 90.4 fl (80.0-96.0); MONO # 0.2 10^3/uL (0.0-0.8); MONO % 3.4 % (2.0-8.0); NEUTROPHILS # 4.5 10^3/uL (1.5-8.5); NEUTROPHILS % 68.8 % (36.0-66.0); PLATELET COUNT, AUTOMATED 114 10^3/uL (150-450); RED BLOOD COUNT 2.49 10^6/uL (4.30-6.10); WHITE BLOOD COUNT 6.5 10^3/uL (4.0-10.0)
[2024-07-16] MEDS: INSULIN IV RATE CHANGE DOCUMENTATION ML/HR XX SCH (12:34)
[2024-07-16 12:37] LABS: INR 1.32; PARTIAL THROMBOPLASTIN TIME 27.6 SECONDS (24.8-34.2); PROTHROMBIN TIME 16.6 SECONDS (12.5-14.5)
[2024-07-16] MEDS: fentaNYL CITRATE/NaCl 1,000 MCG in IV 1 EA IV SCH (13:00)
[2024-07-16] MEDS ORDERED: FENTANYL DRIP LOCK BOX KEY 1 EACH XX PRN (13:00)
[2024-07-16 13:10] LABS: CALCIUM LEVEL 8.2 MG/DL (8.3-10.6); CREATININE FOR GFR 3.35 MG/DL (0.70-1.30); GLOMERULAR FILTRATION RATE 19.4 (>42); MAGNESIUM LEVEL 1.7 MG/DL (1.8-2.4); PHOSPHORUS LEVEL 9.1 MG/DL (2.4-5.1); POTASSIUM SERUM 2.6 MMOL/L (3.5-5.1)
[2024-07-16] MEDS: VASOPRESSIN IN 0.9 % NACL 20 UNIT in IV 1 EA IV SCH (13:15)
[2024-07-16] MEDS: LR 1,000 ML IV STA (13:28)
[2024-07-16] MEDS ORDERED: PROPOFOL 1,000 MG/100 ML VIAL As Ordered ONE (13:43)
[2024-07-16] MEDS: propofoL 1,000 MG in IV 1 EA IV SCH (13:56)
[2024-07-16] MEDS ORDERED: KCL 40MEQ IN D5/0.45NS 1000ML 1,000 ML IV SCH ×2 (14:00→20:00)
[2024-07-16] MEDS: KCL 20MEQ IN 100ML SWI (KRUN) 20 MEQ in IV 1 EA IV SCH (14:10)
[2024-07-16 14:20] LABS: ABG BASE EXCESS -9.3 (-2.0-2.0); ABG HCO3 17.2 MMOL/L (22.0-26.0); ABG O2 SATURATION 92.1 % (95.0-99.0); ABG PARTIAL PRESSURE CO2 39.7 mmHg (35.0-45.0); ABG TOTAL CO2 18.4 MMOL/L (23.0-31.0); ABG pH (ARTERIAL) 7.255 UNITS (7.350-7.450)
[2024-07-16 14:21] LABS: IONIZED CALCIUM 4.3 MG/DL (4.5-5.3)
[2024-07-16] MEDS: MAG SULF 1GM/100ML (MAG RUN) 1 GM in IV 1 EA IV ONE (14:21)
[2024-07-16 14:23] LABS: HEMATOCRIT 37.9 % (42.0-52.0); HEMOGLOBIN 11.9 g/dl (13.5-17.5); MEAN CORPUSCULAR HGB CONC 31.4 g/dl (32.0-36.5); MEAN CORPUSCULAR VOLUME 85.9 fl (80.0-96.0); PLATELET COUNT, AUTOMATED 197 10^3/uL (150-450); RED BLOOD COUNT 4.41 10^6/uL (4.30-6.10); WHITE BLOOD COUNT 7.2 10^3/uL (4.0-10.0)
[2024-07-16 14:55] LABS: ALBUMIN 1.8 G/DL (3.2-5.2); BILIRUBIN,TOTAL 0.4 MG/DL (0.3-1.2); CREATININE FOR GFR 3.22 MG/DL (0.70-1.30); GLOMERULAR FILTRATION RATE 20.3 (>42); MAGNESIUM LEVEL 1.6 MG/DL (1.8-2.4); PHOSPHORUS LEVEL 7.6 MG/DL (2.4-5.1); POTASSIUM SERUM 2.9 MMOL/L (3.5-5.1); TOTAL PROTEIN 5.1 G/DL (5.7-8.2)
[2024-07-16 15:08] LABS: ATYPICAL LYMPH 6 % (0-5); BASOPHILS 1 % (0-1); LYMPHOCYTES 12 % (16-44); MONOCYTES 7 % (0-5); NEUTROPHILS 37 % (28-66); PLATELET CLUMPS SMALL AMT
[2024-07-16 15:09] LABS: PLATELET ESTIMATE NORMAL (NORMAL); POLYCHROMASIA 2+
[2024-07-16] MEDS: CALCIUM GLUCONATE 1,000 MG in DEXTROSE 5% (D5W) MINI-BAG PLU 100 ML IV ONE (16:02)
[2024-07-16] MEDS: LR 1,000 ML IV SCH (16:03)
[2024-07-16] MEDS: LIDOCAINE 5% (LIDODERM) PATCH TD SCH (16:04)
[2024-07-16 18:33] LABS: ABG BASE EXCESS -8.7 (-2.0-2.0); ABG HCO3 15.9 MMOL/L (22.0-26.0); ABG O2 SATURATION 99.3 % (95.0-99.0); ABG PARTIAL PRESSURE CO2 30.5 mmHg (35.0-45.0); ABG PARTIAL PRESSURE O2 160.7 mmHg (75.0-100.0); ABG STANDARD HCO3 17.5 MMOL/L. (22.0-26.0); ABG TOTAL CO2 16.8 MMOL/L (23.0-31.0); ABG pH (ARTERIAL) 7.335 UNITS (7.350-7.450)
[2024-07-16 19:11] LABS: ALBUMIN 1.8 G/DL (3.2-5.2); BILIRUBIN,TOTAL 0.4 MG/DL (0.3-1.2); CALCIUM LEVEL 7.9 MG/DL (8.3-10.6); CREATININE FOR GFR 3.3 MG/DL (0.70-1.30); GLOMERULAR FILTRATION RATE 19.7 (>42); PHOSPHORUS LEVEL 5.4 MG/DL (2.4-5.1); POTASSIUM SERUM 5.2 MMOL/L (3.5-5.1)
[2024-07-16] MEDS ORDERED: hydrALAZINE 20MG/ML 1ML VIAL IV PRN (19:30)
[2024-07-16] MEDS: LEVEMIR (INSULIN DETEMIR) 1 UNITS/0.01ML SC SCH (20:19)
[2024-07-16] MEDS: SODIUM BICARBONATE 325 MG TAB PO SCH (20:19)
[2024-07-16] MEDS ORDERED: INSULIN LISPRO (NovoLOG) PER UNIT SC SCH (21:00)
[2024-07-16] MEDS: fentaNYL CITRATE 1,000 MCG in NS 80 ML IV SCH (21:06)
[2024-07-17] VITALS (99 sets, daily range): BP systolic 92–186; BP diastolic 46–164; TEMP 100.2–100.9; O2SAT 91–100
[2024-07-17 02:14] LABS: ABG BASE EXCESS -7.7 (-2.0-2.0); ABG O2 SATURATION 96.4 % (95.0-99.0); ABG PARTIAL PRESSURE O2 88.5 mmHg (75.0-100.0); ABG STANDARD HCO3 18.2 MMOL/L. (22.0-26.0); ABG TOTAL CO2 17.9 MMOL/L (23.0-31.0); ABG pH (ARTERIAL) 7.342 UNITS (7.350-7.450)
[2024-07-17 02:46] LABS: ALBUMIN 1.4 G/DL (3.2-5.2); BILIRUBIN,TOTAL 0.3 MG/DL (0.3-1.2); CALCIUM LEVEL 7.5 MG/DL (8.3-10.6); CREATININE FOR GFR 3.44 MG/DL (0.70-1.30); GLOMERULAR FILTRATION RATE 18.8 (>42); PHOSPHORUS LEVEL 5.8 MG/DL (2.4-5.1); POTASSIUM SERUM 5.6 MMOL/L (3.5-5.1); TOTAL PROTEIN 4.5 G/DL (5.7-8.2)
[2024-07-17 04:03] LABS: ABG BASE EXCESS -8.1 (-2.0-2.0); ABG HCO3 16.2 MMOL/L (22.0-26.0); ABG O2 SATURATION 96.5 % (95.0-99.0); ABG PARTIAL PRESSURE CO2 29.9 mmHg (35.0-45.0); ABG STANDARD HCO3 17.9 MMOL/L. (22.0-26.0); ABG TOTAL CO2 17.2 MMOL/L (23.0-31.0); ABG pH (ARTERIAL) 7.353 UNITS (7.350-7.450)
[2024-07-17] MEDS: MIDAZOLAM 100MG/100ML-0.9%NACL 100 MG in IV 1 EA IV SCH (04:18)
[2024-07-17] MEDS: ACETAMINOPHEN 325 MG TAB PO PRN (05:59)
[2024-07-17 06:43] LABS: ALBUMIN 1.4 G/DL (3.2-5.2); BILIRUBIN,TOTAL 0.3 MG/DL (0.3-1.2); CALCIUM LEVEL 7.7 MG/DL (8.3-10.6); CREATININE FOR GFR 3.65 MG/DL (0.70-1.30); GLOMERULAR FILTRATION RATE 17.6 (>42); PHOSPHORUS LEVEL 5.9 MG/DL (2.4-5.1); POTASSIUM SERUM 5.7 MMOL/L (3.5-5.1); TOTAL PROTEIN 4.6 G/DL (5.7-8.2)
[2024-07-17] MEDS ORDERED: fentaNYL CITRATE 1,000 MCG in NS 80 ML IV SCH (09:00)
[2024-07-17] MEDS: cefTRIAXone SOD 2 GM in DEXTROSE 5% (D5W) ADV/MINI-BAG 50 ML IV SCH (09:47)
[2024-07-17 11:11] LABS: ALBUMIN 1.3 G/DL (3.2-5.2); BILIRUBIN,TOTAL 0.3 MG/DL (0.3-1.2); CALCIUM LEVEL 7.3 MG/DL (8.3-10.6); CREATININE FOR GFR 3.76 MG/DL (0.70-1.30); PHOSPHORUS LEVEL 6.1 MG/DL (2.4-5.1); POTASSIUM SERUM 5.9 MMOL/L (3.5-5.1); TOTAL PROTEIN 4.6 G/DL (5.7-8.2)
[2024-07-17] MEDS: SODIUM BICARBONATE 150 MEQ in STERILE WATER LITER BAG 1,000 ML IV SCH (12:06)
[2024-07-17] MEDS: PATIROMER SORBITEX CALCIUM 8.4 GM POWDER PACKET (VELTASSA) PO SCH (12:06)
[2024-07-17 12:43] LABS: PROCALCITONIN 21.15 ng/ml
[2024-07-17] MEDS: propofoL 1,000 MG in IV 1 EA IV SCH (13:51)
[2024-07-17 17:51] LABS: CALCIUM LEVEL 7.7 MG/DL (8.3-10.6); CREATININE FOR GFR 3.84 MG/DL (0.70-1.30); GLOMERULAR FILTRATION RATE 16.6 (>42); POTASSIUM SERUM 4.9 MMOL/L (3.5-5.1)
[2024-07-17] MEDS: DEXTROSE 50% 50ML SYRINGE IV PRN (23:36)
[2024-07-18] VITALS (54 sets, daily range): BP systolic 76–157; BP diastolic 47–65; TEMP 100–100.8; O2SAT 87–99
[2024-07-18 04:48] LABS: BASO # 0.1 10^3/uL (0.0-0.2); BASO % 0.3 % (0.0-1.0); EOS # 0.2 10^3/uL (0.0-0.5); EOS % 0.7 % (0.0-3.0); HEMOGLOBIN 10.2 g/dl (13.5-17.5); LYMPH # 1.9 10^3/uL (1.5-5.0); LYMPH % 8.6 % (24.0-44.0); MEAN CORPUSCULAR HEMOGLOBIN 26.9 pg (27.0-33.0); MEAN CORPUSCULAR HGB CONC 31.9 g/dl (32.0-36.5); MEAN CORPUSCULAR VOLUME 84.4 fl (80.0-96.0); MONO % 4.3 % (2.0-8.0); NEUTROPHILS # 18.1 10^3/uL (1.5-8.5); NEUTROPHILS % 83.1 % (36.0-66.0); PLATELET COUNT, AUTOMATED 100 10^3/uL (150-450); RED BLOOD COUNT 3.79 10^6/uL (4.30-6.10); WHITE BLOOD COUNT 21.9 10^3/uL (4.0-10.0)
[2024-07-18 05:01] LABS: ALBUMIN 1.2 G/DL (3.2-5.2); BILIRUBIN,TOTAL 0.4 MG/DL (0.3-1.2); CALCIUM LEVEL 6.8 MG/DL (8.3-10.6); CREATININE FOR GFR 3.49 MG/DL (0.70-1.30); GLOMERULAR FILTRATION RATE 18.5 (>42); MAGNESIUM LEVEL 1.5 MG/DL (1.8-2.4); PHOSPHORUS LEVEL 5.7 MG/DL (2.4-5.1); POTASSIUM SERUM 4.5 MMOL/L (3.5-5.1); TOTAL PROTEIN 4.2 G/DL (5.7-8.2)
[2024-07-18] MEDS: MAG SULF 1GM/100ML (MAG RUN) 1 GM in IV 1 EA IV SCH (06:13)
[2024-07-18] MEDS ORDERED: VANCOMYCIN HCL 500 MG, VIAL MATE ADAPTER 1 EACH in NS 250 ML IV SCH (08:45)
[2024-07-18] MEDS ORDERED: ISOVUE-370 76% 100ML VIAL As Ordered ONE (10:19)
[2024-07-18 12:13] LABS: IONIZED CALCIUM 3.7 MG/DL (4.5-5.3)
[2024-07-18] MEDS: AZITHROMYCIN INJ 500 MG, VIAL MATE ADAPTER 1 EACH in NS 250 ML IV SCH (12:16)
[2024-07-18] MEDS: VANCOMYCIN HCL 1,000 MG, VIAL MATE ADAPTER 1 EACH in NS 250 ML IV ONE (12:16)
[2024-07-18] MEDS: PIPERACILLIN/TAZOBACTAM SOD 3.375 GM in DEXTROSE 5% (D5W) ADV/MINI-BAG 50 ML IV SCH (12:16)
[2024-07-18 12:21] LABS: HEMATOCRIT 33.1 % (42.0-52.0); HEMOGLOBIN 10.6 g/dl (13.5-17.5); MEAN CORPUSCULAR HEMOGLOBIN 27.5 pg (27.0-33.0); MEAN CORPUSCULAR VOLUME 85.8 fl (80.0-96.0); RED BLOOD COUNT 3.86 10^6/uL (4.30-6.10)
[2024-07-18 12:35] LABS: PLATELET COUNT, AUTOMATED 89 10^3/uL (150-450)
[2024-07-18 12:38] LABS: INR 1.24; PROTHROMBIN TIME 15.9 SECONDS (12.5-14.5)
[2024-07-18 12:51] LABS: CALCIUM LEVEL 6.3 MG/DL (8.3-10.6); CREATININE FOR GFR 3.22 MG/DL (0.70-1.30); GLOMERULAR FILTRATION RATE 20.3 (>42); MAGNESIUM LEVEL 1.9 MG/DL (1.8-2.4); POTASSIUM SERUM 4.4 MMOL/L (3.5-5.1)
[2024-07-18] MEDS ORDERED: fentaNYL 100 MCG/2 ML INJECTION As Ordered ONE (13:20)
[2024-07-18] MEDS ORDERED: ROCURONIUM BROMIDE 50MG/5ML VIAL As Ordered ONE (13:21)
[2024-07-18] MEDS ORDERED: ETOMIDATE INJ 20MG/10ML VIAL As Ordered ONE (13:21)
[2024-07-18] MEDS ORDERED: LIDOCAINE 2% 100MG/5ML SDV (FOR ANES.) As Ordered ONE (13:21)
[2024-07-18] MEDS ORDERED: propofoL 200 MG/20 ML VIAL As Ordered ONE (13:22)
[2024-07-18] MEDS ORDERED: VASOPRESSIN INJ 20UNITS/ML 1ML VIAL As Ordered ONE (13:23)
[2024-07-18] MEDS ORDERED: ONDANSETRON 4MG 2ML VIAL IV PRN (13:45)
[2024-07-18] MEDS ORDERED: MORPHINE 2 MG/ML 1ML VIAL IV PRN (13:45)
[2024-07-18] MEDS ORDERED: SCOPOLAMINE 1MG TRANSDERMAL PATCH TOP PRN (13:45)
== END 2024-07-18 13:55 | disposition expired | DRG 871 ==
LOC: EDBD 23:12 → EEVIPCON 23:12 → M ED 23:12 → M ED INP 07-16 05:03 → M ICU 07-16 11:06
PROVIDERS: ADMIT Student in an Organized Health Care Education/Training Program; ATTEND Student in an Organized Health Care Education/Training Program
PROC: 06HM33Z Insertion of Infusion Device into Right Femoral Vein, Percutaneous Approach (ICD-10-PCS; 2024-07-16)
PROC: 04HY33Z Insertion of Infusion Device into Lower Artery, Percutaneous Approach (ICD-10-PCS; 2024-07-16)
PROC: 0BH17EZ Insertion of Endotracheal Airway into Trachea, Via Natural or Artificial Opening (ICD-10-PCS; 2024-07-16)
PROC: B246ZZZ Ultrasonography of Right and Left Heart (ICD-10-PCS; principal; 2024-07-17)
PROC: 06HN33Z Insertion of Infusion Device into Left Femoral Vein, Percutaneous Approach (ICD-10-PCS; 2024-07-17)
PROC: 02HV33Z Insertion of Infusion Device into Superior Vena Cava, Percutaneous Approach (ICD-10-PCS; 2024-07-18)
DX: A41.9 Sepsis, unspecified organism (principal); E10.10 Type 1 diabetes mellitus with ketoacidosis without coma; R65.21 Severe sepsis with septic shock; J96.00 Acute respiratory failure, unspecified whether with hypoxia or hypercapnia; K63.1 Perforation of intestine (nontraumatic); N17.9 Acute kidney failure, unspecified; N39.0 Urinary tract infection, site not specified; S22.41XA Multiple fractures of ribs, right side, initial encounter for closed fracture; S42.302A Unspecified fracture of shaft of humerus, left arm, initial encounter for closed fracture; E87.0 Hyperosmolality and hypernatremia; E87.4 Mixed disorder of acid-base balance; Z66 Do not resuscitate; F17.200 Nicotine dependence, unspecified, uncomplicated; I10 Essential (primary) hypertension; I46.9 Cardiac arrest, cause unspecified; I48.0 Paroxysmal atrial fibrillation; R29.6 Repeated falls; I25.10 Atherosclerotic heart disease of native coronary artery without angina pectoris; E78.5 Hyperlipidemia, unspecified; E03.9 Hypothyroidism, unspecified; F41.9 Anxiety disorder, unspecified; F32.A Depression, unspecified; F10.90 Alcohol use, unspecified, uncomplicated; K21.9 Gastro-esophageal reflux disease without esophagitis; E10.51 Type 1 diabetes mellitus with diabetic peripheral angiopathy without gangrene; J44.9 Chronic obstructive pulmonary disease, unspecified; N40.0 Benign prostatic hyperplasia without lower urinary tract symptoms; D64.9 Anemia, unspecified; Z96.612 Presence of left artificial shoulder joint; Z89.411 Acquired absence of right great toe; W19.XXXA Unspecified fall, initial encounter; Y92.9 Unspecified place or not applicable; Z79.82 Long term (current) use of aspirin; Z79.890 Hormone replacement therapy; Z79.4 Long term (current) use of insulin; Z79.899 Other long term (current) drug therapy; E87.5 Hyperkalemia; Z95.2 Presence of prosthetic heart valve